=== PATIENT | male | born 1930 | race Caucasian/White ===

== ENCOUNTER 2017-01-26 15:27 | Emergency (ER) | payer MEDICARE, OTHER ==
[2017-01-26 15:57] VITALS: TEMP 97.8; BMI 27.4
[2017-01-26] MEDS ORDERED: ACETAMINOPHEN 325 MG TABLET (FP) ONE (16:03)
--- NOTE | 2017-01-26 17:26 | PDOC ---
History of Present Illness - General History Source: Patient, Half-Way Records Exam Limitations: Clinical Condition - History of Present Illness Initial Comments: 01/26/17 18:51 The patient is an 86 year old male, resident of [facility], with a significant past medical history of vertigo, anemia, HTN, HLD, and CKD, who presents to the ER s/p unwitnessed fall. 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 As per intermediate nurses, patient is confused at baseline but has been more confused for the past week. Patient fell earlier today while ambulating. As per intermediate notes, patient complained of dizziness s/p fall. On interview, patient denies any pain. Denies nausea, vomiting, diarrhea Denies fever, chills, cough <Bryanna Coker - Last Filed: 01/26/17 18:53> <Aubrie Small - Last Filed: 01/26/17 19:08> <Timothy Aguirre - Last Filed: 01/26/17 19:32> <Tena Solano - Last Filed: 01/26/17 19:40> - General Chief Complaint: Injury Stated Complaint: FALL Time Seen by Provider: 01/26/17 16:31 Past History <Bryanna Coker - Last Filed: 01/26/17 18:53> - Past Medical History Anemia: Yes Asthma: No Cancer: No Cardiac Disorders: Yes (CHF) CVA: No COPD: No CHF: No Dementia: No Diabetes: No GI Disorders: Yes (GI BLD-TRANSFUSED) Disorders: Yes (CKD) HTN: Yes Hypercholesterolemia: Yes Liver Disease: No Seizures: No Thyroid Disease: No - Surgical History Abdominal Surgery: No Appendectomy: No Cardiac Surgery: No Cholecystectomy: Yes Lung Surgery: No Neurologic Surgery: No Orthopedic Surgery: No - Psycho/Social/Smoking Cessation Hx Anxiety: No Suicidal Ideation: No Smoking History: Former smoker Have you smoked in the past 12 months: No Number of Cigarettes Smoked Daily: 15 If you are a former smoker, when did you quit?: does not remember Information on smoking cessation initiated: Yes 'Breaking Loose' booklet given: 01/26/17 Hx Alcohol Use: No Drug/Substance Use Hx: No Substance Use Type: None Hx Substance Use Treatment: No <Aubrie Small - Last Filed: 01/26/17 19:08> <AguirreTimothy - Last Filed: 01/26/17 19:32> <Tena Solano - Last Filed: 01/26/17 19:40> - Past Medical History Allergies/Adverse Reactions: Allergies Allergy/AdvReac Type Severity Reaction Status Date / Time No Known Drug Allergies Allergy Verified 01/26/17 16:14 Home Medications: Ambulatory Orders Losartan Potassium [Cozaar -] 50 mg PO DAILY 04/29/14 Cilostazol 100 mg PO BID 10/09/14 Multivitamins [Multivit ([facility] Formulary)] 1 tab PO DAILY 10/09/14 Amlodipine Besylate 10 mg PO DAILY 07/29/16 Ascorbate Calcium [Vitamin C] 500 mg PO BID 07/29/16 Docusate Sodium 100 mg PO HS 07/29/16 Escitalopram Oxalate [Lexapro -] 20 mg PO DAILY 07/29/16 Ferrous Sulfate 325 mg PO BID 07/29/16 Krill/[place]-3/Dha/Epa/Lipids [Krill Oil 300 mg Softgel] 1 each PO DAILY Oxycodone HCl 5 mg PO PRN 07/29/16 Perphenazine [Trilafon] 2 mg PO BID 07/29/16 Ranitidine [Zantac -] 150 mg PO BID 07/29/16 Acetaminophen [Tactinal] 325 mg PO DAILY 01/26/17 Olanzapine 2.5 mg PO DAILY 01/26/17 Quetiapine Fumarate [Seroquel -] 12.5 mg PO HS 01/26/17 Review of Systems - Review of Systems Able to Perform ROS?: No (Confusion) <Bryanna Coker - Last Filed: 01/26/17 18:53> *Physical Exam - Vital Signs Last Vital Signs Temp Pulse Resp BP Pulse Ox 97.8 F 70 16 150/58 100 01/26/17 15:49 01/26/17 15:49 01/26/17 15:49 01/26/17 15:49 01/26/17 15:49 - Physical Exam Comments: 01/26/17 18:51 GENERAL: Confused. Awake, alert, in no acute distress HEAD: No signs of trauma EYES: PERRLA, EOMI, sclera anicteric, conjunctiva clear ENT: Auricles normal inspection, hearing grossly normal, nares patent, oropharynx clear without exudates. Moist mucosa NECK: Normal ROM, supple, no lymphadenopathy, JVD, or masses LUNGS: Breath sounds equal, clear to auscultation bilaterally. No wheezes, and no crackles HEART: Regular rate and rhythm, normal S1 and S2, no murmurs, rubs or gallops ABDOMEN: Soft, nontender, normoactive bowel sounds. No guarding, no rebound. No masses EXTREMITIES: area of erythema on right mcgill, 1+ pitting edema to mid calf bilaterally. Normal range of motion. No clubbing or cyanosis. No cords or tenderness NEUROLOGICAL: Cranial nerves II through XII grossly intact. Normal speech, normal gait SKIN: Warm, Dry, normal turgor, no rashes or lesions noted. <Bryanna Coker - Last Filed: 01/26/17 18:53> - Vital Signs Last Vital Signs Temp Pulse Resp BP Pulse Ox 97.8 F 70 16 150/58 100 01/26/17 15:49 01/26/17 15:49 01/26/17 15:49 01/26/17 15:49 01/26/17 15:49 <Aubrie Small - Last Filed: 01/26/17 19:08> - Vital Signs Last Vital Signs Temp Pulse Resp BP Pulse Ox 97.8 F 70 16 150/58 100 01/26/17 15:49 01/26/17 15:49 01/26/17 15:49 01/26/17 15:49 01/26/17 15:49 <Timothy Aguirre - Last Filed: 01/26/17 19:32> - Vital Signs Last Vital Signs Temp Pulse Resp BP Pulse Ox 97.8 F 70 16 150/58 100 01/26/17 15:49 01/26/17 15:49 01/26/17 15:49 01/26/17 15:49 01/26/17 15:49 <Tena Solano - Last Filed: 01/26/17 19:40> ED Treatment Course - LABORATORY CBC & Chemistry Diagram: 01/26/17 17:36 01/26/17 17:20 - ADDITIONAL ORDERS Additional order review: Laboratory Results 01/26/17 17:20 Sodium 144 Potassium 5.0 Chloride 108 H Carbon Dioxide 22 Anion Gap 14 BUN 61 H D Creatinine 2.6 H Creat Clearance w eGFR 23.47 Random Glucose 104 Calcium 9.4 Total Bilirubin 0.2 AST 21 D ALT 24 Alkaline Phosphatase 123 H Creatine Kinase 439 H D Troponin I 0.03 D Total Protein 6.1 L Albumin 3.7 01/26/17 17:36 RBC 2.97 L MCV 90.3 MCHC 32.9 RDW 15.5 MPV 8.3 Neutrophils % 79.0 Lymphocytes % 8.2 Monocytes % 8.7 Eosinophils % 3.5 Basophils % 0.6 <Bryanna Coker - Last Filed: 01/26/17 18:53> - LABORATORY CBC & Chemistry Diagram: 01/26/17 17:36 01/26/17 17:20 <Aubrie Small - Last Filed: 01/26/17 19:08> - LABORATORY CBC & Chemistry Diagram: 01/26/17 17:36 01/26/17 17:20 - ADDITIONAL ORDERS Additional order review: Laboratory Results 01/26/17 01/26/17 17:20 17:20 Sodium 144 Potassium 5.0 Chloride 108 H Carbon Dioxide 22 Anion Gap 14 BUN 61 H D Creatinine 2.6 H Creat Clearance w eGFR 23.47 Random Glucose 104 Calcium 9.4 Total Bilirubin 0.2 AST 21 D ALT 24 Alkaline Phosphatase 123 H Creatine Kinase 439 H D Creatine Kinase Index 1.4 CK-MB (CK-2) 6.202 H CK-MB (CK-2) Rel Index Cancelled Troponin I 0.03 D Total Protein 6.1 L Albumin 3.7 01/26/17 17:36 RBC 2.97 L MCV 90.3 MCHC 32.9 RDW 15.5 MPV 8.3 Neutrophils % 79.0 Lymphocytes % 8.2 Monocytes % 8.7 Eosinophils % 3.5 Basophils % 0.6 <Timothy Aguirre - Last Filed: 01/26/17 19:32> - LABORATORY CBC & Chemistry Diagram: 01/26/17 17:36 01/26/17 17:20 - ADDITIONAL ORDERS Additional order review: Laboratory Results 01/26/17 01/26/17 17:20 17:20 Sodium 144 Potassium 5.0 Chloride 108 H Carbon Dioxide 22 Anion Gap 14 BUN 61 H D Creatinine 2.6 H Creat Clearance w eGFR 23.47 Random Glucose 104 Calcium 9.4 Total Bilirubin 0.2 AST 21 D ALT 24 Alkaline Phosphatase 123 H Creatine Kinase 439 H D Creatine Kinase Index 1.4 CK-MB (CK-2) 6.202 H CK-MB (CK-2) Rel Index Cancelled Troponin I 0.03 D Total Protein 6.1 L Albumin 3.7 01/26/17 17:36 RBC 2.97 L MCV 90.3 MCHC 32.9 RDW 15.5 MPV 8.3 Neutrophils % 79.0 Lymphocytes % 8.2 Monocytes % 8.7 Eosinophils % 3.5 Basophils % 0.6 <Tena Solano - Last Filed: 01/26/17 19:40> Medical Decision Making - Medical Decision Making 01/26/17 19:08 Pt presents to the ED after unwitnessed fall. Patient is following commands but is confused and is otherwise unable to give history. Uncertain if patient had syncope or mechanical fall. As per intermediate, patient is always confused , but has been more confused than usual for the last week. No external signs of trauma except for abrasion to the R leg. CT head and C spine are negative for acute trauma. Given that the fall was unwitnessed, will admit for possible syncope. <Aubrie Small - Last Filed: 01/26/17 19:08> - Medical Decision Making 01/26/17 19:33 First call placed to Dr. Montiel at 19:33. Awaiting call back. <Timothy Aguirre - Last Filed: 01/26/17 19:32> - Medical Decision Making 01/26/17 19:[address] Montiel, PMOdell of the patient at the [facility], who wants pt to return to the [facility]. He sent the patient to the ER inorder to image the Head and C spine. He feels comfortable now that the pt's imaging studies are WNL. Pt will be sent home. We discussed the Hb of 8.8, and Dr. Montiel will trend the Hb/HCT at the [facility] and look for falling H+H. Pt to return to the [facility] <Tena Solano - Last Filed: 01/26/17 19:40> *DC/Admit/Observation/Transfer - Attestations Scribe Attestion: 01/26/17 18:52 Documentation prepared by Bryanna Coker, acting as medical examiner for Aubrie Small MD. <Bryanna Coker - Last Filed: 01/26/17 18:53> <Aubrie Small - Last Filed: 01/26/17 19:08> <Timothy Aguirre - Last Filed: 01/26/17 19:32> - Discharge Dispostion Admit: No <Tena Solano - Last Filed: 01/26/17 19:40> Diagnosis at time of Disposition: Fall, Imbalance - Discharge Dispostion Disposition: DETENTION FACILITY Condition at time of disposition: Stable - Patient Instructions Printed Discharge Instructions: How to Prevent Falls
[2017-01-26 17:51] LABS: BASOPHIL 0.6 % (0-2.0); EOSINOPHIL 3.5 % (0-4.5); MCH 29.7 pg (25.7-33.7); MCHC 32.9 g/dl (32.0-35.9); MEAN CELL VOLUME 90.3 fl (80-96); MEAN PLT VOLUME 8.3 fl (7.5-11.1); PLATELET COUNT 266 K/MM3 (134-434); RDW 15.5 % (11.9-15.9); WHITE BLOOD COUNT 7.4 K/mm3 (4.0-10.0)
[2017-01-26 18:30] LABS: ALBUMIN 3.7 g/dl (3.4-5.0); ANION GAP 14 (8-16); BILIRUBIN,TOTAL 0.2 mg/dL (0.2-1.0); CALCIUM 9.4 mg/dL (8.5-10.1); CO2 22 mmol/L (21-32); CREATININE 2.6 mg/dL (0.7-1.3); GLUCOSE,RANDOM 104 mg/dL (74-106); SGOT/AST 21 U/L (15-37); SGPT/ALT 24 U/L (12-78); TOT PROT 6.1 g/dl (6.4-8.2)
[2017-01-26 18:32] LABS: ALK PHOS 123 U/L (45-117); TROPONIN I 0.03 ng/ml (0.00-0.05)
[2017-01-26 19:30] LABS: URINE APPEARANCE CLEAR; URINE BILIRUBIN NEGATIVE (NEGATIVE); URINE BLOOD NEGATIVE (NEGATIVE); URINE COLOR LTYELLOW; URINE GLUCOSE (UA) NEGATIVE (NEGATIVE); URINE KETONE NEGATIVE (NEGATIVE); URINE LEUK ESTERASE NEGATIVE (NEGATIVE); URINE NITRITE NEGATIVE (NEGATIVE); URINE UROBILINOGEN NEGATIVE E.U./dl (0.2-1.0)
[2017-01-26 19:45] LABS: URINE PROTEIN 1+ (NEGATIVE)
[2017-01-26 20:04] LABS: URINE RBC 1 /hpf (0-3); URINE WBC <1 /hpf (3-5)
[2017-01-26 20:49] VITALS: BP 146/62; PULSE 68
--- NOTE | 2017-01-27 09:56 | EKG ---
Test Reason : Blood Pressure : / mmHG Vent. Rate : 067 BPM Atrial Rate : 067 BPM P-R Int : 160 ms QRS Dur : 102 ms QT Int : 400 ms P-R-T Axes : 061 -51 029 degrees QTc Int : 422 ms POOR DATA QUALITY, INTERPRETATION MAY BE ADVERSELY AFFECTED NORMAL SINUS RHYTHM LEFT ANTERIOR FASCICULAR BLOCK INCOMPLETE RBBB ABNORMAL ECG Confirmed by MICHAEL COULTER MD ([id number]) on 01/27/2017 9:55:54 AM Referred By: Confirmed By:MICHAEL COULTER MD
== END 2017-01-26 20:49 ==
LOC: JER 15:27
DX: R26.89 Other abnormalities of gait and mobility (principal); R41.0 Disorientation, unspecified; I12.9 Hypertensive chronic kidney disease with stage 1 through stage 4 chronic kidney disease, or unspecified chronic kidney disease; N18.9 Chronic kidney disease, unspecified; E78.00 Pure hypercholesterolemia, unspecified; W19.XXXA Unspecified fall, initial encounter; Y93.89 Activity, other specified; Y92.128 Other place in nursing home as the place of occurrence of the external cause
CPT/HCPCS: 36415; 70450-TC; 71010-TC; 72125-TC; 80053; 81003; 81015; 82550; 82553; 84484; 85025; 87086; 93005; 93010; 99284-25

== ENCOUNTER 2017-02-28 05:33 | Emergency (ER) | payer OTHER ==
[2017-02-28 05:37] VITALS: TEMP 98.2; BMI 29.0
--- NOTE | 2017-02-28 05:50 | PDOC ---
History of Present Illness - General History Source: Patient, Longterm Records Exam Limitations: No Limitations - History of Present Illness Initial Comments: 02/28/17 05:57 The patient is an 86 year old male, resident of [facility], with a significant past medical history of vertigo, anemia, HTN, HLD, and CKD, who presents to the ER s/p witnessed fall. Pt was here last month for another fall. He denies any loss of consciousness but states that the facility wants him to get his head scanned anyway. Pt does not give too much of a history. The patient denies having any other injuries or symptoms. <Lani Hall - Last Filed: 02/28/17 05:57> - General History Source: Patient, Longterm Records <Luciano Tompkins - Last Filed: 02/28/17 06:56> - General Chief Complaint: Head/Neck problem Stated Complaint: FALL Time Seen by Provider: 02/28/17 05:48 Past History <Lani Hall - Last Filed: 02/28/17 05:57> - Past Medical History Anemia: Yes Asthma: No Cancer: No Cardiac Disorders: Yes (CHF) CVA: No COPD: No CHF: No Dementia: No Diabetes: No GI Disorders: Yes (GI BLD-TRANSFUSED) Disorders: Yes (CKD) HTN: Yes Hypercholesterolemia: Yes Liver Disease: No Seizures: No Thyroid Disease: No - Surgical History Abdominal Surgery: No Appendectomy: No Cardiac Surgery: No Cholecystectomy: Yes Lung Surgery: No Neurologic Surgery: No Orthopedic Surgery: No - Psycho/Social/Smoking Cessation Hx Anxiety: No Suicidal Ideation: No Smoking History: Never smoked Have you smoked in the past 12 months: No Number of Cigarettes Smoked Daily: 15 If you are a former smoker, when did you quit?: does not remember Information on smoking cessation initiated: No 'Breaking Loose' booklet given: 01/26/17 Hx Alcohol Use: No Drug/Substance Use Hx: No Substance Use Type: None Hx Substance Use Treatment: No <Luciano Tompkins - Last Filed: 02/28/17 06:56> - Past Medical History Allergies/Adverse Reactions: Allergies Allergy/AdvReac Type Severity Reaction Status Date / Time No Known Drug Allergies Allergy Verified 02/28/17 05:35 Home Medications: Ambulatory Orders Losartan Potassium [Cozaar -] 50 mg PO DAILY 04/29/14 Cilostazol 100 mg PO BID 10/09/14 Multivitamins [Multivit ([facility] Formulary)] 1 tab PO DAILY 10/09/14 Amlodipine Besylate 10 mg PO DAILY 07/29/16 Ascorbate Calcium [Vitamin C] 500 mg PO BID 07/29/16 Docusate Sodium 100 mg PO HS 07/29/16 Escitalopram Oxalate [Lexapro -] 20 mg PO DAILY 07/29/16 Ferrous Sulfate 325 mg PO BID 07/29/16 Krill/[place]-3/Dha/Epa/Lipids [Krill Oil 300 mg Softgel] 1 each PO DAILY Oxycodone HCl 5 mg PO PRN 07/29/16 Perphenazine [Trilafon] 2 mg PO BID 07/29/16 Ranitidine [Zantac -] 150 mg PO BID 07/29/16 Acetaminophen [Tactinal] 325 mg PO DAILY 01/26/17 Olanzapine 2.5 mg PO DAILY 01/26/17 Quetiapine Fumarate [Seroquel -] 12.5 mg PO HS 01/26/17 Review of Systems - Review of Systems Able to Perform ROS?: Yes Comments:: 02/28/17 05:57 CONSTITUTIONAL: Absent: fever, no chills, no fatigue EYES: Absent: visual changes ENT: Absent: ear pain, no sore throat CARDIOVASCULAR: Absent: chest pain, no palpitations RESPIRATORY: Absent: cough, no SOB GI: Absent: abdominal pain, no nausea, no vomiting, no constipation, no diarrhea GENITOURINARY: Absent: dysuria, no frequency, no hematuria MUSKULOSKELETAL: Absent: back pain, no arthralgia, no myalgia SKIN: Present: abrasion to restoration Absent: rash NEURO: Absent: headache <Lani Hall - Last Filed: 02/28/17 05:57> *Physical Exam - Vital Signs Last Vital Signs Temp Pulse Resp BP Pulse Ox 98.2 F 72 14 151/62 96 02/28/17 05:35 02/28/17 05:35 02/28/17 05:35 02/28/17 05:35 02/28/17 05:35 - Physical Exam Comments: 02/28/17 05:58 GENERAL: Well developed, well nourished. Awake and alert. No acute distress. HEENT: Normocephalic. PERRLA, EOMI. No conjunctival pallor. Sclera are non-icteric. Moist mucous membranes. Oropharynx is clear. +No raccoon or rushing signs. Abrasion to frontal temporal region NECK: Supple. Full ROM. No JVD. Carotid pulses 2+ and symmetric, without bruits. No thyromegaly. No lymphadenopathy. CARDIOVASCULAR: Regular rate and rhythm. No murmurs, rubs, or gallops. Distal pulses are 2+ and symmetric. PULMONARY: No evidence of respiratory distress. Lungs clear to auscultation bilaterally. No wheezing, rales or rhonchi. ABDOMINAL: Soft. Non-tender. Non-distended. No rebound or guarding. No organomegaly. Normoactive bowel sounds. MUSCULOSKELETAL Normal range of motion at all joints. No bony deformities or tenderness. No CVA tenderness. EXTREMITIES: No cyanosis. No clubbing. No edema. No calf tenderness. SKIN: Warm and dry. Normal capillary refill. No rashes. No jaundice. NEUROLOGICAL: Alert, awake, appropriate. PSYCHIATRIC: Cooperative. Good eye contact. Appropriate mood and affect. <Lani Hall - Last Filed: 02/28/17 05:57> - Vital Signs Last Vital Signs Temp Pulse Resp BP Pulse Ox 98.2 F 72 14 151/62 96 02/28/17 05:35 02/28/17 05:35 02/28/17 05:35 02/28/17 05:35 02/28/17 05:35 <Luciano Tompkins - Last Filed: 02/28/17 06:56> Medical Decision Making - Medical Decision Making 02/28/17 06:56 Dr. Tompkins: The scribe's documentation has been prepared under my direction and personally reviewed by me in its entirery. I confirm that the note above accurately reflects all work, treatment, procedures, and medical decision making performed by me. <Luciano Tompkins - Last Filed: 02/28/17 06:56> *DC/Admit/Observation/Transfer - Attestations Scribe Attestion: 02/28/17 06:00 Documentation prepared by Lani Hall, acting as bilingual medical receptionist for Luciano Tompkins MD. <Lani Hall - Last Filed: 02/28/17 05:57> - Discharge Dispostion Admit: No <Luciano Tompkins - Last Filed: 02/28/17 06:56> Diagnosis at time of Disposition: Fall Qualifiers: Encounter type: subsequent encounter Qualified Code(s): W19.XXXD - Unspecified fall, subsequent encounter - Discharge Dispostion Disposition: HOME Condition at time of disposition: Stable - Referrals Referrals: Cesario Montiel MD [Primary Care Provider] - - Patient Instructions Printed Discharge Instructions: How to Prevent Falls
[2017-02-28 08:06] VITALS: BP 153/73; PULSE 64
== END 2017-02-28 08:50 | disposition home or self-care (01) ==
LOC: JER 05:33
DX: Z03.89 Encounter for observation for other suspected diseases and conditions ruled out (principal); W18.39XA Other fall on same level, initial encounter; Z91.81 History of falling; Y93.89 Activity, other specified; Y92.129 Unspecified place in nursing home as the place of occurrence of the external cause; I12.9 Hypertensive chronic kidney disease with stage 1 through stage 4 chronic kidney disease, or unspecified chronic kidney disease; N18.9 Chronic kidney disease, unspecified; E78.5 Hyperlipidemia, unspecified; E78.00 Pure hypercholesterolemia, unspecified
CPT/HCPCS: 70450-TC; 72125-TC; 99283-25

== ENCOUNTER 2017-03-28 18:27 | Inpatient (IN) | payer OTHER ==
--- NOTE | 2017-03-28 20:13 | PDOC ---
History of Present Illness - General Chief Complaint: Revisit, Lab Variance Stated Complaint: ABNORMAL LABS Time Seen by Provider: 03/28/17 19:53 - History of Present Illness Initial Comments: 03/28/17 20:12 CHIEF COMPLAINT: lab variance HISTORY OF PRESENT ILLNESS: 86 yo M with significant PMH of history of transfused GI bleed, anemia, hypertension, hyperlipidemia, CKD sent to ED by [facility] for abnormal labs. Per custodial note patient had an H&H of 6.2/22 and was more confused than he is at baseline. Patient denies any pain on exam and states that he feels ok. No recent travel or sick contacts. PAST MEDICAL HISTORY: as per HPI FAMILY HISTORY: Denies SOCIAL HISTORY: Lives at [facility]. Denies tobacco, alcohol, illicit drug use. SURGICAL HISTORY: Denies ALLERGIES: No known drug allergies REVIEW OF SYSTEMS General/Constitutional: Denies fever or chills. Denies weakness, weight change. HEENT: Denies change in vision. Denies ear pain or discharge. Denies sore throat. Cardiovascular: Denies chest pain or shortness of breath. Respiratory: Denies cough, wheezing, or hemoptysis. Gastrointestinal: Denies nausea, vomiting, diarrhea or constipation. Denies rectal bleeding. Genitourinary: Denies dysuria, frequency, or change in urination. Musculoskeletal: Denies joint or muscle swelling or pain. Denies neck or back pain. Skin and breasts: Denies rash or easy bruising. Neurologic: Denies headache, vertigo, loss of consciousness, or loss of sensation. PHYSICAL EXAM General Appearance: Well-appearing, appropriately dressed. No apparent distress. HEENT: EOMI, PERRLA, normal ENT inspection, normal voice, TMs normal, pharynx normal. No conjunctival pallor. No photophobia, scleral icterus. Neck: Supple. Trachea midline. No tenderness, rigidity, carotid bruit, stridor , lymphadenopathy, or thyromegaly. Respiratory/Chest: Lungs CTAB. No shortness of breath, chest tenderness, respiratory distress, accessory muscle use. No crackles, rales, rhonchi, stridor , wheezing, dullness Cardiovascular: RRR. S1, S2. No JVD, murmur, bradycardia, tachycardia. Vascular Pulses: Dorsalis-Pedis (R): 2+, Dorsalis-Pedis (L): 2+ Gastrointestinal/Abdominal: Normal bowel sounds. Abdomen soft, non-distended. No tenderness or rebound tenderness. No organomegaly, pulsatile mass, guarding , hernia, hepatomegaly, splenomegaly. Lymphatic: No adenopathy, tenderness. Musculoskeletal/Extremities: Normal inspection. FROM of all extremities, normal capillary refill. Pelvis Stable. No CVA tenderness. No tenderness to extremities, pedal edema, swelling, erythema or deformity. Integumentary: Appropriate color, dry, warm. No cyanosis, erythema, jaundice or rash Neurologic: orthodontic technician II-XII intact. Fully oriented, alert. Appropriate mood/affect. Motor strength 5/5. No appreciable EOM palsy, facial droop or sensory deficit. Past History - Past Medical History Allergies/Adverse Reactions: Allergies Allergy/AdvReac Type Severity Reaction Status Date / Time No Known Drug Allergies Allergy Verified 03/28/17 19:26 Home Medications: Ambulatory Orders Acetaminophen [Tylenol] 650 mg PO DAILY 03/28/17 Amlodipine Besylate [Norvasc -] 10 mg PO DAILY 03/28/17 Ascorbate Calcium [Vitamin C] 500 mg PO BID 03/28/17 Cilostazol 100 mg PO BID 03/28/17 Docusate Sodium [Colace -] 100 mg PO DAILY 03/28/17 Escitalopram Oxalate [Lexapro -] 20 mg PO DAILY 03/28/17 Ferrous Sulfate 325 mg PO BID 03/28/17 Furosemide [Lasix] 20 mg PO DAILY 03/28/17 Krill/[place]-3/Dha/Epa/Lipids [Krill Oil 300 mg Softgel] 1 each PO DAILY Metoprolol Succinate [Toprol Xl -] 25 mg PO DAILY 03/28/17 Multivitamin [One Daily] 1 each PO DAILY 03/28/17 Olanzapine 15 mg PO DAILY 03/28/17 Oxycodone HCl 5 mg PO PRN PRN 03/28/17 Perphenazine [Trilafon] 0.5 mg PO DAILY 03/28/17 Petrolatum,White/Lanolin [Vitamin A & D Ointment] 454 gm TP BID 03/28/17 Ranitidine [Zantac -] 150 mg PO BID 03/28/17 Anemia: Yes Asthma: No Cancer: No Cardiac Disorders: Yes (CHF) CVA: No COPD: No CHF: No Dementia: No Diabetes: No GI Disorders: Yes (GI BLD-TRANSFUSED) Disorders: Yes (CKD) HTN: Yes Hypercholesterolemia: Yes Liver Disease: No Seizures: No Thyroid Disease: No - Surgical History Abdominal Surgery: No Appendectomy: No Cardiac Surgery: No Cholecystectomy: Yes Lung Surgery: No Neurologic Surgery: No Orthopedic Surgery: No - Psycho/Social/Smoking Cessation Hx Anxiety: No Suicidal Ideation: No Smoking History: Unknown if ever smoked Have you smoked in the past 12 months: No Number of Cigarettes Smoked Daily: 15 If you are a former smoker, when did you quit?: does not remember Information on smoking cessation initiated: No 'Breaking Loose' booklet given: 01/26/17 Hx Alcohol Use: No Drug/Substance Use Hx: No Substance Use Type: None Hx Substance Use Treatment: No *Physical Exam - Vital Signs Last Vital Signs Temp Pulse Resp BP Pulse Ox 97.5 F L 58 L 18 135/60 98 03/28/17 18:27 03/28/17 18:27 03/28/17 18:27 03/28/17 18:27 03/28/17 18:27 ED Treatment Course - LABORATORY CBC & Chemistry Diagram: 03/31/17 07:46 03/31/17 07:46 - RADIOLOGY Radiology Studies Ordered: Category Date Time Status CHEST X-RAY PORTABLE* [RAD] Stat Radiology 03/28/17 19:55 Ordered Medical Decision Making - Medical Decision Making 04/01/17 04:31 86 yo M with significant PMH of history of transfused GI bleed, anemia, hypertension, hyperlipidemia, CKD sent to ED by [facility] for abnormal labs. -CBC, CMP, PT/INR, T&S, card profile -UA, UCx -Guaiac -EKG, CXR [place] negative Labs: Hg 6.6 Creatinine 2.9, elevated from prior of 2.6 -2 units PRBC Discussed case with patient's PCP Dinesh, patient admitted to med/surg. *DC/Admit/Observation/Transfer Diagnosis at time of Disposition: Anemia Qualifiers: Anemia type: iron deficiency Iron deficiency anemia type: unspecified iron deficiency Qualified Code(s): D50.9 - Iron deficiency anemia, unspecified - Discharge Dispostion Admit: Yes
[2017-03-28 20:25] LABS: BASOPHIL 0.7 % (0-2.0); EOSINOPHIL 7.9 % (0-4.5); MCH 32.2 pg (25.7-33.7); MCHC 32.9 g/dl (32.0-35.9); MEAN CELL VOLUME 97.8 fl (80-96); MEAN PLT VOLUME 8.5 fl (7.5-11.1); NEUTROPHILS 69.1 % (42.8-82.8); PLATELET COUNT 253 K/MM3 (134-434); RDW 18.3 % (11.9-15.9); WHITE BLOOD COUNT 4.5 K/mm3 (4.0-10.0)
[2017-03-28 20:36] LABS: INR 1.04 (0.82-1.09); PROTHROMBIN TIME (PATIENT) 11.5 SEC (9.98-11.88)
[2017-03-28 20:49] LABS: ALBUMIN 3.3 g/dl (3.4-5.0); ANION GAP 8 (8-16); CALCIUM 8.9 mg/dL (8.5-10.1); CO2 23 mmol/L (21-32); GLUCOSE,RANDOM 150 mg/dL (74-106); SGPT/ALT 51 U/L (12-78)
--- NOTE | 2017-03-28 20:51 | PDOC ---
*Physical Exam - Vital Signs Last Vital Signs Temp Pulse Resp BP Pulse Ox 97.5 F L 58 L 18 135/60 98 03/28/17 18:27 03/28/17 18:27 03/28/17 18:27 03/28/17 18:27 03/28/17 18:27 ED Treatment Course - LABORATORY CBC & Chemistry Diagram: 03/29/17 07:30 03/29/17 07:30 - ADDITIONAL ORDERS Additional order review: Laboratory Results 03/28/17 20:10 Crossmatch See Detail 03/28/17 20:10 RBC 2.05 L D MCV 97.8 H MCHC 32.9 RDW 18.3 H D MPV 8.5 Neutrophils % 69.1 Lymphocytes % 10.6 D Monocytes % 11.7 H Eosinophils % 7.9 H D Basophils % 0.7 Medical Decision Making - Medical Decision Making 03/28/17 20:51 agree with care from TAYLOR Palacios *DC/Admit/Observation/Transfer Diagnosis at time of Disposition: Anemia
[2017-03-28 20:52] LABS: ALK PHOS 149 U/L (45-117); BILIRUBIN,TOTAL 0.2 mg/dL (0.2-1.0); CREATININE 2.9 mg/dL (0.7-1.3); SGOT/AST 27 U/L (15-37); TOT PROT 5.8 g/dl (6.4-8.2)
[2017-03-28] MEDS: RANITIDINE HCL 150 MG TABLET (FP) PO SCH (22:00)
[2017-03-28 22:01] LABS: TROPONIN I 0.02 ng/ml (0.00-0.05)
[2017-03-28 22:17] LABS: PH,URINE 5.5 (5.0-8.0); URINE APPEARANCE CLEAR; URINE BILIRUBIN NEGATIVE (NEGATIVE); URINE BLOOD NEGATIVE (NEGATIVE); URINE COLOR LT. YELLOW; URINE GLUCOSE (UA) NEGATIVE (NEGATIVE); URINE KETONE NEGATIVE (NEGATIVE); URINE LEUK ESTERASE NEGATIVE (NEGATIVE); URINE NITRITE NEGATIVE (NEGATIVE); URINE UROBILINOGEN 0.2 mg/dL (0.2-1.0)
[2017-03-28] MEDS: CILOSTAZOL 100 MG TABLET PO SCH (22:30)
[2017-03-28 22:40] LABS: URINE HYALINE CAST 1 /lpf; URINE PROTEIN 1+ (NEGATIVE); URINE RBC NONE SEEN /hpf (0-3); URINE WBC NONE SEEN /hpf (3-5)
[2017-03-29 01:19] LABS: URINE CREATININE 24.5 mg/dL (20-370)
[2017-03-29 01:45] VITALS: BMI 27.6
[2017-03-29 02:47] LABS: FERRITIN 32.854 ng/ml (16.4-293.9); THYROID STIMULATING HORMONE 3.77 uIU/ml (0.358-3.74)
[2017-03-29 08:51] LABS: BASOPHIL 0.4 % (0-2.0); EOSINOPHIL 7.2 % (0-4.5); MCH 32.6 pg (25.7-33.7); MCHC 34.1 g/dl (32.0-35.9); MEAN CELL VOLUME 95.7 fl (80-96); MEAN PLT VOLUME 8.7 fl (7.5-11.1); NEUTROPHILS 68.3 % (42.8-82.8); PLATELET COUNT 268 K/MM3 (134-434); RDW 17.5 % (11.9-15.9); WHITE BLOOD COUNT 4.9 K/mm3 (4.0-10.0)
[2017-03-29 09:08] LABS: ALBUMIN 3.2 g/dl (3.4-5.0); ALK PHOS 157 U/L (45-117); ANION GAP 10 (8-16); BILIRUBIN,TOTAL 0.9 mg/dL (0.2-1.0); CALCIUM 8.7 mg/dL (8.5-10.1); CO2 21 mmol/L (21-32); CREATININE 2.7 mg/dL (0.7-1.3); GLUCOSE,RANDOM 86 mg/dL (74-106); SGOT/AST 22 U/L (15-37); SGPT/ALT 47 U/L (12-78); TOT PROT 5.7 g/dl (6.4-8.2)
[2017-03-29 11:33] LABS: URINE CREATININE 43.4 mg/dL (20-370)
[2017-03-29] MEDS ORDERED: ESCITALOPRAM OXALATE 10 MG TABLET (FP) ONE (11:51)
[2017-03-29] MEDS ORDERED: PT OWN MED DRAWER 7, Y5N ONE (11:52)
[2017-03-29] MEDS: ESCITALOPRAM OXALATE 20 MG TABLET (FP) PO SCH (12:51)
[2017-03-29] MEDS: METOPROLOL SUCCINATE 25 MG TAB.SR.24H (FP) PO SCH (12:52)
[2017-03-29] MEDS: amLODIPine BESYLATE 10 MG TABLET (FP) PO SCH (12:53)
[2017-03-29] MEDS: OLANZapine 2.5 MG TABLET PO SCH (12:54)
[2017-03-29] MEDS: RANITIDINE HCL 150 MG TABLET (FP) PO SCH ×2 (12:54→21:30)
[2017-03-29] MEDS: CILOSTAZOL 100 MG TABLET PO SCH ×2 (12:55→21:30)
--- NOTE | 2017-03-29 13:04 | HP ---
Admitting History and Physical - Primary Care Physician PCP: Cesario Montiel - Admission Chief Complaint: I don't know History of Present Illness: Mr Reynoso is an 86 year old gentleman who was sent in for abnormal labs. Patient has dementia and I am unable to obtain a HPI. He says he does not remember what happened yesterday. He says he feels adequate. He denies pain, fevers, lightheadedness, chest pain, shortness of breath, coughing, abdominal pain, nausea, vomiting, diarrhea, constipation, difficulty or pain on urination. He says he does not know if his legs are swollen. RN says she placed a harris and received 1500mL of urine. 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 duo bx neg) - Smoking History Smoking history: Unknown if ever smoked Have you smoked in the past 12 months: No Aproximately how many cigarettes per day: 15 If you are a former smoker, when did you quit?: does not remember - Alcohol/Substance Use Hx Alcohol Use: No - Social History Usual Living Arrangement: Yes: Senior Care ADL: Support Services History of Recent Travel: No Home Medications - Allergies Allergies/Adverse Reactions: Allergies Allergy/AdvReac Type Severity Reaction Status Date / Time No Known Drug Allergies Allergy Verified 03/28/17 19:26 - Home Medications Home Medications: Ambulatory Orders Acetaminophen [Tylenol] 650 mg PO DAILY 03/28/17 Amlodipine Besylate [Norvasc -] 10 mg PO DAILY 03/28/17 Ascorbate Calcium [Vitamin C] 500 mg PO BID 03/28/17 Cilostazol 100 mg PO BID 03/28/17 Docusate Sodium [Colace -] 100 mg PO DAILY 03/28/17 Escitalopram Oxalate [Lexapro -] 20 mg PO DAILY 03/28/17 Ferrous Sulfate 325 mg PO BID 03/28/17 Furosemide [Lasix] 20 mg PO DAILY 03/28/17 Krill/[place]-3/Dha/Epa/Lipids [Krill Oil 300 mg Softgel] 1 each PO DAILY Metoprolol Succinate [Toprol Xl -] 25 mg PO DAILY 03/28/17 Multivitamin [One Daily] 1 each PO DAILY 03/28/17 Olanzapine 15 mg PO DAILY 03/28/17 Oxycodone HCl 5 mg PO PRN PRN 03/28/17 Perphenazine [Trilafon] 0.5 mg PO DAILY 03/28/17 Petrolatum,White/Lanolin [Vitamin A & D Ointment] 454 gm TP BID 03/28/17 Ranitidine [Zantac -] 150 mg PO BID 03/28/17 Family Disease History - Family Disease History Family History: Unable to Obtain (dementia) Review of Systems Findings/Remarks: Full review of systems obtained, as per HPI and otherwise negative. Physical Examination Vital Signs: Vital Signs Temperature 36.3 C L 03/29/17 06:25 Pulse Rate 60 03/29/17 08:00 Respiratory Rate 18 03/29/17 08:00 Blood Pressure 130/80 03/29/17 08:00 O2 Sat by Pulse Oximetry (%) 99 03/29/17 09:00 Constitutional: Yes: Well Nourished, No Distress, Calm Eyes: Yes: Conjunctiva Clear, PERRL Cardiovascular: Yes: Regular Rate and Rhythm. No: Gallop, Murmur, Rub Respiratory: Yes: Regular, CTA Bilaterally. No: Rales, Rhonchi, Wheezes Gastrointestinal: Yes: Normal Bowel Sounds, Soft. No: Distention, Tenderness Extremities: Yes: WNL Edema: Yes Edema: LLE: Trace, RLE: Trace Labs: CBC, BMP 03/29/17 07:30 03/29/17 07:30 Imaging - Results Chest X-ray: Report Reviewed, Image Reviewed Ultrasound: Report Reviewed Problem List - Problems (1) Anemia Assessment/Plan: -unclear source -stool guaiac negative -anemia labs pending -hematology consult -s/p transfusion, monitor Code(s): D64.9 - ANEMIA, UNSPECIFIED (2) Acute on chronic renal failure Assessment/Plan: -possibly secondary to retention -harris placed -continue IVF -nephrology consulted Code(s): N17.9 - ACUTE KIDNEY FAILURE, UNSPECIFIED N18.9 - CHRONIC KIDNEY DISEASE, UNSPECIFIED (3) HTN (hypertension) Assessment/Plan: -continue toprol xl and norvasc -controlled Code(s): I10 - ESSENTIAL (PRIMARY) HYPERTENSION (4) Urinary retention Assessment/Plan: -harris placed -urology consult Code(s): R33.9 - RETENTION OF URINE, UNSPECIFIED
--- NOTE | 2017-03-29 14:07 | CON.NEP ---
Consult Consult Specialty:: Nephrology (Hermes/Daren) Referred by:: Dr. Montiel Reason for Consultation:: SUZI on CKD, vs progressive CKD - History of Present Illness Chief Complaint: Abnormal labs History of Present Illness: This is a 86 year old Gentleman with PMhx of CKD (baseline 2.1-2.6?), CHF, Anemia, GIB, Hyperlipidemia who was sent to the ED from [place] for acute on chronic anemia and found to have BUN/Cr of 61/2.9. Pt when examined was lethargic and not able to provide much history. No DIPTI/ARB, NSAIDs listed on EMR. Pt denies any acute complaints. No N/V/D. Pt found to have bladder outlet obstruction on US and harris inserted. s/p 2 PRBC transfusion for anemia. 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 duo bx neg) - Alcohol/Substance Use Hx Alcohol Use: No - Smoking History Smoking history: Unknown if ever smoked Have you smoked in the past 12 months: No Aproximately how many cigarettes per day: 15 If you are a former smoker, when did you quit?: does not remember - Social History Usual Living Arrangement: Alone ADL: Support Services History of Recent Travel: No Home Medications - Allergies Allergies/Adverse Reactions: Allergies Allergy/AdvReac Type Severity Reaction Status Date / Time No Known Drug Allergies Allergy Verified 03/28/17 19:26 - Home Medications Home Medications: Ambulatory Orders Acetaminophen [Tylenol] 650 mg PO DAILY 03/28/17 Amlodipine Besylate [Norvasc -] 10 mg PO DAILY 03/28/17 Ascorbate Calcium [Vitamin C] 500 mg PO BID 03/28/17 Cilostazol 100 mg PO BID 03/28/17 Docusate Sodium [Colace -] 100 mg PO DAILY 03/28/17 Escitalopram Oxalate [Lexapro -] 20 mg PO DAILY 03/28/17 Ferrous Sulfate 325 mg PO BID 03/28/17 Furosemide [Lasix] 20 mg PO DAILY 03/28/17 Krill/[place]-3/Dha/Epa/Lipids [Krill Oil 300 mg Softgel] 1 each PO DAILY Metoprolol Succinate [Toprol Xl -] 25 mg PO DAILY 03/28/17 Multivitamin [One Daily] 1 each PO DAILY 03/28/17 Olanzapine 15 mg PO DAILY 03/28/17 Oxycodone HCl 5 mg PO PRN PRN 03/28/17 Perphenazine [Trilafon] 0.5 mg PO DAILY 03/28/17 Petrolatum,White/Lanolin [Vitamin A & D Ointment] 454 gm TP BID 03/28/17 Ranitidine [Zantac -] 150 mg PO BID 03/28/17 Family Disease History - Family Disease History Family History: Unremarkable Review of Systems - Review of Systems Constitutional: reports: No Symptoms Eyes: reports: No Symptoms HENT: reports: No Symptoms Neck: reports: No Symptoms Cardiovascular: reports: No Symptoms Respiratory: reports: No Symptoms Gastrointestinal: reports: No Symptoms Musculoskeletal: reports: No Symptoms Integumentary: reports: No Symptoms Nephrology Consult - Height Height: 5 ft 6 in - Weight Weight: 171 lb 3 oz - BMI Body Mass Index (BMI): 27.6 - Lab Results CBC,BMP: CBC, BMP 03/29/17 07:30 03/29/17 07:30 Anion Gap: Anion Gap Anion Gap 10 (8-16) 03/29/17 07:30 - Imaging Chest X-ray: Report Reviewed - Physical Examination Vital Signs: Vital Signs Temperature 97.3 F L 03/29/17 06:25 Pulse Rate 60 03/29/17 08:00 Respiratory Rate 18 03/29/17 08:00 Blood Pressure 130/80 03/29/17 08:00 O2 Sat by Pulse Oximetry (%) 99 03/29/17 09:00 Constitutional: Yes: No Distress Eyes: Yes: Conjunctiva Clear HENT: Yes: Atraumatic Neck: Yes: Supple Cardiovascular: Yes: Regular Rate and Rhythm, S1, S2. No: JVD, Gallop, Murmur Respiratory: Yes: Regular, CTA Bilaterally Gastrointestinal: Yes: Normal Bowel Sounds, Soft Renal/: Yes: Harris Present. No: Bladder Distention Extremities: No: Cold, Cool, Cyanosis Edema: No Neurological: Yes: Alert, Lethargy Problem List - Problems (1) Anemia Code(s): D64.9 - ANEMIA, UNSPECIFIED (2) HTN (hypertension) Code(s): I10 - ESSENTIAL (PRIMARY) HYPERTENSION (3) Urinary retention Code(s): R33.9 - RETENTION OF URINE, UNSPECIFIED (4) Acute on chronic renal failure Code(s): N17.9 - ACUTE KIDNEY FAILURE, UNSPECIFIED N18.9 - CHRONIC KIDNEY DISEASE, UNSPECIFIED Assessment/Plan 86 year old Gentleman with PMhx of CKD (baseline 2.1-2.6?), CHF, Anemia, GIB, Hyperlipidemia who was sent to the ED from [place] for acute on chronic anemia and found to have BUN/Cr of 61/2.9. #Acute on Chronic renal failure vs. 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
[2017-03-29] MEDS ORDERED: SODIUM CHLORIDE 0.45% 1,000 ML IV SCH (14:15)
--- NOTE | 2017-03-29 14:54 | EKG ---
Test Reason : Blood Pressure : / mmHG Vent. Rate : 057 BPM Atrial Rate : 057 BPM P-R Int : 162 ms QRS Dur : 102 ms QT Int : 420 ms P-R-T Axes : 031 -43 040 degrees QTc Int : 408 ms SINUS BRADYCARDIA WITH SINUS ARRHYTHMIA LEFT AXIS DEVIATION ABNORMAL ECG WHEN COMPARED WITH ECG OF 26-JAN-2017 17:59, NO SIGNIFICANT CHANGE WAS FOUND Confirmed by NELLIE DAVALOS MD ([id number]) on 03/29/2017 2:54:18 PM Referred By: Confirmed By:NELLIE DAVALOS MD
--- NOTE | 2017-03-29 16:26 | CON.GU ---
Consult Consult Specialty:: Referred by:: medicine Reason for Consultation:: urinary retention - History of Present Illness Chief Complaint: urinary retention History of Present Illness: 86 year old male NHR who presents with anemia. he was incontinence and a bladder sonogram revealed a greater than 1000ml residual. A harris cath was placed and 1500ml clear urine was drained. Patient has dementia and at several times during the interview he fell asleep. 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 duo bx neg) - Alcohol/Substance Use Hx Alcohol Use: No - Smoking History Smoking history: Unknown if ever smoked Have you smoked in the past 12 months: No Aproximately how many cigarettes per day: 15 If you are a former smoker, when did you quit?: does not remember - Social History Usual Living Arrangement: Alone ADL: Support Services History of Recent Travel: No Home Medications - Allergies Allergies/Adverse Reactions: Allergies Allergy/AdvReac Type Severity Reaction Status Date / Time No Known Drug Allergies Allergy Verified 03/28/17 19:26 - Home Medications Home Medications: Ambulatory Orders Acetaminophen [Tylenol] 650 mg PO DAILY 03/28/17 Amlodipine Besylate [Norvasc -] 10 mg PO DAILY 03/28/17 Ascorbate Calcium [Vitamin C] 500 mg PO BID 03/28/17 Cilostazol 100 mg PO BID 03/28/17 Docusate Sodium [Colace -] 100 mg PO DAILY 03/28/17 Escitalopram Oxalate [Lexapro -] 20 mg PO DAILY 03/28/17 Ferrous Sulfate 325 mg PO BID 03/28/17 Furosemide [Lasix] 20 mg PO DAILY 03/28/17 Krill/[place]-3/Dha/Epa/Lipids [Krill Oil 300 mg Softgel] 1 each PO DAILY Metoprolol Succinate [Toprol Xl -] 25 mg PO DAILY 03/28/17 Multivitamin [One Daily] 1 each PO DAILY 03/28/17 Olanzapine 15 mg PO DAILY 03/28/17 Oxycodone HCl 5 mg PO PRN PRN 03/28/17 Perphenazine [Trilafon] 0.5 mg PO DAILY 03/28/17 Petrolatum,White/Lanolin [Vitamin A & D Ointment] 454 gm TP BID 03/28/17 Ranitidine [Zantac -] 150 mg PO BID 03/28/17 Review of Systems - Review of Systems Genitourinary: reports: Frequency, Incontinence, Urgency Physical Exam- Vital Signs: Vital Signs Temperature 97.3 F L 03/29/17 14:00 Pulse Rate 67 03/29/17 14:00 Respiratory Rate 17 03/29/17 14:00 Blood Pressure 146/74 03/29/17 14:00 O2 Sat by Pulse Oximetry (%) 99 03/29/17 09:00 Constitutional: Yes: No Distress, Calm Renal/: Yes: Harris Present. No: Bladder Distention, CVA Tenderness - Left, CVA Tenderness - Right, Hematuria, Incontinence Labs: CBC, BMP 03/29/17 07:30 03/29/17 07:30 Problem List - Problems (1) Urinary retention Assessment/Plan: start Flomax. He is unlikely to void in the short term and might need a harris cath or possibly a suprapubic catheter placed if he has senior care retention. Code(s): R33.9 - RETENTION OF URINE, UNSPECIFIED
--- NOTE | 2017-03-29 16:31 | CONSULT ---
Consult Consult Specialty:: Hematology/Oncology Reason for Consultation:: Anemia - History of Present Illness History of Present Illness: 86 year old half-way resident with PMhx of CKD CHF, Anemia, GIB, Hyperlipidemia who was sent to the ED from [place] for acute on chronic anemia. Pt found to have bladder outlet obstruction on US and harris inserted. s/p 2 PRBC transfusion for anemia. Was seen by Renal/. We were consulted for anemia. history obtained from medical record. 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 duo bx neg) - Alcohol/Substance Use Hx Alcohol Use: No - Smoking History Smoking history: Unknown if ever smoked Have you smoked in the past 12 months: No Aproximately how many cigarettes per day: 15 If you are a former smoker, when did you quit?: does not remember - Social History Usual Living Arrangement: Alone ADL: Support Services History of Recent Travel: No Home Medications - Allergies Allergies/Adverse Reactions: Allergies Allergy/AdvReac Type Severity Reaction Status Date / Time No Known Drug Allergies Allergy Verified 03/28/17 19:26 - Home Medications Home Medications: Ambulatory Orders Acetaminophen [Tylenol] 650 mg PO DAILY 03/28/17 Amlodipine Besylate [Norvasc -] 10 mg PO DAILY 03/28/17 Ascorbate Calcium [Vitamin C] 500 mg PO BID 03/28/17 Cilostazol 100 mg PO BID 03/28/17 Docusate Sodium [Colace -] 100 mg PO DAILY 03/28/17 Escitalopram Oxalate [Lexapro -] 20 mg PO DAILY 03/28/17 Ferrous Sulfate 325 mg PO BID 03/28/17 Furosemide [Lasix] 20 mg PO DAILY 03/28/17 Krill/[place]-3/Dha/Epa/Lipids [Krill Oil 300 mg Softgel] 1 each PO DAILY Metoprolol Succinate [Toprol Xl -] 25 mg PO DAILY 03/28/17 Multivitamin [One Daily] 1 each PO DAILY 03/28/17 Olanzapine 15 mg PO DAILY 03/28/17 Oxycodone HCl 5 mg PO PRN PRN 03/28/17 Perphenazine [Trilafon] 0.5 mg PO DAILY 03/28/17 Petrolatum,White/Lanolin [Vitamin A & D Ointment] 454 gm TP BID 03/28/17 Ranitidine [Zantac -] 150 mg PO BID 03/28/17 Physical Exam Vital Signs: Vital Signs Temperature 97.3 F L 03/29/17 14:00 Pulse Rate 67 03/29/17 14:00 Respiratory Rate 17 03/29/17 14:00 Blood Pressure 146/74 03/29/17 14:00 O2 Sat by Pulse Oximetry (%) 99 03/29/17 09:00 Constitutional: Yes: Calm HENT: Yes: Atraumatic, Normocephalic Cardiovascular: Yes: Regular Rate and Rhythm, Murmur Respiratory: Yes: Regular Gastrointestinal: Yes: Normal Bowel Sounds, Soft Edema: No (rle in dressing) Neurological: Yes: Other (sleepy) Labs: CBC, BMP 03/29/17 07:30 03/29/17 07:30 Problem List - Problems (1) Anemia Code(s): D64.9 - ANEMIA, UNSPECIFIED (2) Urinary retention Code(s): R33.9 - RETENTION OF URINE, UNSPECIFIED (3) Acute on chronic renal failure Code(s): N17.9 - ACUTE KIDNEY FAILURE, UNSPECIFIED N18.9 - CHRONIC KIDNEY DISEASE, UNSPECIFIED Assessment/Plan Anemia SUZI on CKD HTN h/o CHF -Reviewed chart in detail, pt underwent GI w/u in 2013 with EGD/Colonoscopy and found to have hemorrhoids, no avm, and planned to do capsule endoscopy as a out pt. -Presently, stool occult blood negative. - will follow-up on the screening labs, ACD/ACI in the setting of CKD is a possibility in addition to iron def (ferritin of 32), will await other iron studies prior to giving procrit/IV iron. -s/p 2 U PRBC with appropriate response. -f/u SPEP. will follow
--- NOTE | 2017-03-30 04:15 | HOSP ---
Subjective - Review of Symptoms Events since last encounter: Nsg notified specifications writer that pt had become very agitated, pulled out his IV, and was kicking/punching nurses. Upon exam, pt still agitated and poses a risk of injury to self. Vest restraint and Ativan 1mg IM once ordered for pt safety. Physical Examination Vital Signs: Vital Signs Temperature 98.7 F 03/30/17 02:00 Pulse Rate 66 03/30/17 02:00 Respiratory Rate 18 03/30/17 02:00 Blood Pressure 138/70 03/30/17 02:00 O2 Sat by Pulse Oximetry (%) 99 03/29/17 21:00 Labs: CBC, BMP 03/29/17 07:30 03/29/17 07:30 Visit type - Emergency Visit Emergency Visit: Yes ED Registration Date: 03/28/17 Care time: The patient presented to the Emergency Department on the above date and was hospitalized for further evaluation of their emergent condition. - New Patient This patient is new to me today: Yes Date on this admission: 03/30/17 - Critical Care Critical Care patient: No
[2017-03-30] MEDS ORDERED: LORazepam 2 MG/ML SDV VIAL ONE (04:24)
[2017-03-30 06:11] LABS: SERUM IRON 34 ug/dL (38-169); TOTAL IRON BINDING CAPACITY 310 ug/dL (250-450); UIBC 276 ug/dL (111-343)
[2017-03-30] MEDS: TAMSULOSIN HCL 0.4 MG CAP.ER.24H (FP) PO SCH (08:08)
[2017-03-30 08:30] LABS: ANION GAP 11 (8-16); CALCIUM 8.7 mg/dL (8.5-10.1); CO2 21 mmol/L (21-32); CREATININE 2.6 mg/dL (0.7-1.3); GLUCOSE,RANDOM 88 mg/dL (74-106); LDH 212 U/L (87-241); MAGNESIUM 2.2 mg/dL (1.8-2.4); PHOSPHOROUS 3.3 mg/dL (2.5-4.9)
[2017-03-30 08:31] LABS: BASOPHIL 0.6 % (0-2.0); EOSINOPHIL 3.3 % (0-4.5); MCH 32.1 pg (25.7-33.7); MEAN CELL VOLUME 94.3 fl (80-96); MEAN PLT VOLUME 8.4 fl (7.5-11.1); NEUTROPHILS 79.6 % (42.8-82.8); PLATELET COUNT 255 K/MM3 (134-434); WHITE BLOOD COUNT 8.2 K/mm3 (4.0-10.0)
[2017-03-30 08:33] LABS: FERRITIN 49.046 ng/ml (16.4-293.9)
[2017-03-30] MEDS ORDERED: ESCITALOPRAM OXALATE 10 MG TABLET (FP) ONE (10:33)
[2017-03-30] MEDS ORDERED: PT OWN MED DRAWER 7, Y5N ONE (10:34)
[2017-03-30] MEDS: METOPROLOL SUCCINATE 25 MG TAB.SR.24H (FP) PO SCH (10:42)
[2017-03-30] MEDS: OLANZapine 2.5 MG TABLET PO SCH (10:43)
[2017-03-30] MEDS: ESCITALOPRAM OXALATE 20 MG TABLET (FP) PO SCH (10:43)
[2017-03-30] MEDS: RANITIDINE HCL 150 MG TABLET (FP) PO SCH ×2 (10:43→21:35)
[2017-03-30] MEDS: CILOSTAZOL 100 MG TABLET PO SCH ×2 (10:44→22:58)
[2017-03-30] MEDS: amLODIPine BESYLATE 10 MG TABLET (FP) PO SCH (10:44)
--- NOTE | 2017-03-30 13:12 | PN ---
Progress Note (short form) - Note Progress Note: Renal Follow up for SUZI/CKD Pt seen and examined at the bedside awake and alert no acute complaints pt only got ~500cc of IVF yesterday and then lost IV access and then would not allow another one to be put back in Vital Signs Temperature 98.1 F 03/30/17 10:00 Pulse Rate 63 03/30/17 10:00 Respiratory Rate 18 03/30/17 10:00 Blood Pressure 157/74 03/30/17 10:00 O2 Sat by Pulse Oximetry (%) 99 03/29/17 21:00 Intake & Output 03/27/17 03/28/17 03/29/17 03/30/17 23:59 23:59 23:59 23:59 Intake Total 1575 200 Output Total 4700 1550 Balance -3125 -1350 Weight 171 lb 3 oz 174 lb 5 oz Gen: NAD, awake and alert CVS: RRR, No M/R Lungs: CTA Abd: soft NT Ext: No edema CBC, BMP 03/30/17 06:40 03/30/17 06:40 Current Medications Acetaminophen (Tylenol -) 650 mg PO Q6H PRN PRN Reason: BACK PAIN Amlodipine Besylate (Norvasc -) 10 mg PO DAILY [facility] Last Admin: 03/30/17 10:44 Dose: 10 mg Cilostazol (Pletal -) 100 mg PO BID [facility] Last Admin: 03/30/17 10:44 Dose: 100 mg Escitalopram Oxalate (Lexapro -) 20 mg PO DAILY [facility] Last Admin: 03/30/17 10:43 Dose: 20 mg Sodium Chloride (1/2 Normal Saline) 1,000 mls @ 75 mls/hr IV ASDIR [facility] Stop: 03/30/17 14:14 Last Admin: 03/29/17 15:00 Dose: 75 mls/hr Metoprolol Succinate (Toprol Xl -) 25 mg PO DAILY [facility] Last Admin: 03/30/17 10:42 Dose: 25 mg Olanzapine (Zyprexa -) 7.5 mg PO DAILY [facility] Last Admin: 03/30/17 10:43 Dose: 7.5 mg Ranitidine HCl (Zantac -) 150 mg PO BID [facility] Last Admin: 03/30/17 10:43 Dose: 150 mg Tamsulosin HCl (Flomax -) 0.4 mg PO DAILY@0830 [facility] Last Admin: 03/30/17 08:08 Dose: 0.4 mg A/P 86 year old Gentleman with PMhx of CKD (baseline 2.1-2.6?), CHF, Anemia, GIB, Hyperlipidemia who was sent to the ED from [place] for acute on chronic anemia and found to have BUN/Cr of 61/2.9. #Acute on Chronic renal failure vs. progressive CKD and found to have urinary retention Harris place with good urine output pt with polyuria will need aggressive IVF hydration to prevent volume depletion from post obstructive diuresis continue flomax maintain harris as per Urology Trend BUN/cr and electrolytes #Acute Anemia Iron saturation ~11% will give IV iron 200mg IV x 1 Trend CBC s/p PRBC transfusion if Hgb remains < 10 s/p iron repeltion may need BLAIRE given his CKD Check SPEP Thank you Teja Mercedes DO Problem List - Problems (1) Anemia Code(s): D64.9 - ANEMIA, UNSPECIFIED (2) HTN (hypertension) Code(s): I10 - ESSENTIAL (PRIMARY) HYPERTENSION (3) Urinary retention Code(s): R33.9 - RETENTION OF URINE, UNSPECIFIED (4) Acute on chronic renal failure Code(s): N17.9 - ACUTE KIDNEY FAILURE, UNSPECIFIED N18.9 - CHRONIC KIDNEY DISEASE, UNSPECIFIED
[2017-03-30] MEDS ORDERED: SODIUM CHLORIDE 0.45% 1,000 ML IV SCH (13:15)
--- NOTE | 2017-03-30 13:52 | PN ---
Progress Note, Physician Chief Complaint: Mr Reynoso is without complaint. No cp, sob, n/v. - Current Medication List Current Medications: Active Medications Acetaminophen (Tylenol -) 650 mg PO Q6H PRN PRN Reason: BACK PAIN Amlodipine Besylate (Norvasc -) 10 mg PO DAILY [facility] Last Admin: 03/30/17 10:44 Dose: 10 mg Cilostazol (Pletal -) 100 mg PO BID [facility] Last Admin: 03/30/17 10:44 Dose: 100 mg Escitalopram Oxalate (Lexapro -) 20 mg PO DAILY [facility] Last Admin: 03/30/17 10:43 Dose: 20 mg Sodium Chloride (1/2 Normal Saline) 1,000 mls @ 100 mls/hr IV ASDIR [facility] Iron Sucrose 200 mg/ Sodium (Chloride) 100 mls @ 200 mls/hr IVPB ONCE ONE Stop: 03/30/17 14:29 Metoprolol Succinate (Toprol Xl -) 25 mg PO DAILY [facility] Last Admin: 03/30/17 10:42 Dose: 25 mg Olanzapine (Zyprexa -) 7.5 mg PO DAILY [facility] Last Admin: 03/30/17 10:43 Dose: 7.5 mg Ranitidine HCl (Zantac -) 150 mg PO BID [facility] Last Admin: 03/30/17 10:43 Dose: 150 mg Tamsulosin HCl (Flomax -) 0.4 mg PO DAILY@0830 [facility] Last Admin: 03/30/17 08:08 Dose: 0.4 mg - Objective Vital Signs: Vital Signs Temperature 36.7 C 03/30/17 10:00 Pulse Rate 63 03/30/17 10:00 Respiratory Rate 18 03/30/17 10:00 Blood Pressure 157/74 03/30/17 10:00 O2 Sat by Pulse Oximetry (%) 99 03/29/17 21:00 Constitutional: Yes: Well Nourished, No Distress, Calm Cardiovascular: Yes: Regular Rate and Rhythm. No: Gallop, Murmur, Rub Respiratory: Yes: Regular, CTA Bilaterally. No: Rales, Rhonchi, Wheezes Gastrointestinal: Yes: Normal Bowel Sounds, Soft. No: Distention, Tenderness Extremities: Yes: WNL Edema: No Labs: CBC, BMP 03/30/17 06:40 03/30/17 06:40 INR, PTT INR 1.04 (0.82-1.09) 03/28/17 20:10 Problem List - Problems (1) Anemia Code(s): D64.9 - ANEMIA, UNSPECIFIED (2) Acute on chronic renal failure Code(s): N17.9 - ACUTE KIDNEY FAILURE, UNSPECIFIED N18.9 - CHRONIC KIDNEY DISEASE, UNSPECIFIED (3) HTN (hypertension) Code(s): I10 - ESSENTIAL (PRIMARY) HYPERTENSION (4) Urinary retention Code(s): R33.9 - RETENTION OF URINE, UNSPECIFIED Assessment/Plan (1) Anemia Assessment/Plan: -case d/w hematology -give IV iron today -monitor -nephrology to evaluate if will benefit from epogen Code(s): D64.9 - ANEMIA, UNSPECIFIED (2) Acute on chronic renal failure Assessment/Plan: -nephrology following -continue aggressive IVF Code(s): N17.9 - ACUTE KIDNEY FAILURE, UNSPECIFIED N18.9 - CHRONIC KIDNEY DISEASE, UNSPECIFIED (3) HTN (hypertension) Assessment/Plan: -continue toprol xl and norvasc -controlled Code(s): I10 - ESSENTIAL (PRIMARY) HYPERTENSION (4) Urinary retention Assessment/Plan: -continue flomax -appreciate urology assistance -continue harris Code(s): R33.9 - RETENTION OF URINE, UNSPECIFIED
[2017-03-30] MEDS ORDERED: IRON SUCROSE INJECTION 200 MG in SODIUM CHLORIDE 90 ML IVPB ONE (14:00)
--- NOTE | 2017-03-30 20:37 | PN ---
Progress Note (short form) - Note Progress Note: pt seen and examined, is awake than yesterday, but does not provide much hx. Constitutional: Yes: Calm HENT: Yes: Atraumatic, Normocephalic Cardiovascular: Yes: Regular Rate and Rhythm, Murmur Respiratory: Yes: Regular Gastrointestinal: Yes: Normal Bowel Sounds, Soft Edema: No (rle in dressing) Last Vital Signs Temp Pulse Resp BP Pulse Ox 97.6 F 71 17 118/62 97 03/30/17 14:00 03/30/17 14:00 03/30/17 14:00 03/30/17 14:00 03/30/17 20:26 Current Medications Generic Name Dose Route Start Last Admin Trade Name Freq PRN Reason Stop Dose Admin Acetaminophen 650 mg 03/28/17 21:49 Tylenol - PO Q6H PRN BACK PAIN Amlodipine Besylate 10 mg 03/29/17 10:00 03/30/17 10:44 Norvasc - PO 10 mg DAILY [facility] Administration Cilostazol 100 mg 03/28/17 22:00 03/30/17 10:44 Pletal - PO 100 mg BID [facility] Administration Escitalopram Oxalate 20 mg 03/29/17 10:00 03/30/17 10:43 Lexapro - PO 20 mg DAILY [facility] Administration Sodium Chloride 1,000 mls @ 100 mls/hr 03/30/17 13:15 03/30/17 13:30 1/2 Normal Saline IV 100 mls/hr ASDIR C[facility] Administration Metoprolol Succinate 25 mg 03/29/17 10:00 03/30/17 10:42 Toprol Xl - PO 25 mg DAILY [facility] Administration Olanzapine 7.5 mg 03/29/17 10:00 03/30/17 10:43 Zyprexa - PO 7.5 mg DAILY [facility] Administration Ranitidine HCl 150 mg 03/28/17 22:00 03/30/17 10:43 Zantac - PO 150 mg BID [facility] Administration Tamsulosin HCl 0.4 mg 03/30/17 08:30 03/30/17 08:08 Flomax - PO 0.4 mg DAILY@0830 [facility] Administration CBC, BMP 03/30/17 06:40 03/30/17 06:40 Anemia SUZI on CKD HTN h/o CHF -stool occult blood negative. - iron studies reviewed , received venofer 200mg IV x1, may need a repeat dose -ACD/ACI in the setting of CKD is a possibility in addition to iron def , will add procrit if hgb remains low -s/p 2 U PRBC with appropriate response. -f/u SPEP. Problem List - Problems (1) Anemia Code(s): D64.9 - ANEMIA, UNSPECIFIED (2) Urinary retention Code(s): R33.9 - RETENTION OF URINE, UNSPECIFIED (3) Acute on chronic renal failure Code(s): N17.9 - ACUTE KIDNEY FAILURE, UNSPECIFIED N18.9 - CHRONIC KIDNEY DISEASE, UNSPECIFIED
[2017-03-30] MEDS: ACETAMINOPHEN 325 MG TABLET (FP) PO PRN (21:35)
[2017-03-31] MEDS: TAMSULOSIN HCL 0.4 MG CAP.ER.24H (FP) PO SCH (08:43)
[2017-03-31 09:03] LABS: BASOPHIL 0.4 % (0-2.0); EOSINOPHIL 1.5 % (0-4.5); MCH 32.4 pg (25.7-33.7); MEAN CELL VOLUME 95.4 fl (80-96); MEAN PLT VOLUME 8.3 fl (7.5-11.1); NEUTROPHILS 82.5 % (42.8-82.8); PLATELET COUNT 236 K/MM3 (134-434); RDW 17.1 % (11.9-15.9); WHITE BLOOD COUNT 5.8 K/mm3 (4.0-10.0)
[2017-03-31] MEDS ORDERED: PT OWN MED DRAWER 7, Y5N ONE ×2 (09:15→12:52)
[2017-03-31] MEDS ORDERED: ESCITALOPRAM OXALATE 10 MG TABLET (FP) ONE (09:15)
[2017-03-31] MEDS: amLODIPine BESYLATE 10 MG TABLET (FP) PO SCH (09:18)
[2017-03-31] MEDS: CILOSTAZOL 100 MG TABLET PO SCH ×2 (09:18→21:40)
[2017-03-31] MEDS: RANITIDINE HCL 150 MG TABLET (FP) PO SCH ×2 (09:19→21:40)
[2017-03-31] MEDS: OLANZapine 2.5 MG TABLET PO SCH (09:19)
[2017-03-31] MEDS: ESCITALOPRAM OXALATE 20 MG TABLET (FP) PO SCH (09:19)
[2017-03-31] MEDS: METOPROLOL SUCCINATE 25 MG TAB.SR.24H (FP) PO SCH (09:19)
[2017-03-31 09:24] LABS: ALBUMIN 2.8 g/dl (3.4-5.0); ANION GAP 9 (8-16); CALCIUM 8.4 mg/dL (8.5-10.1); CO2 21 mmol/L (21-32); CREATININE 2.5 mg/dL (0.7-1.3); GLUCOSE,RANDOM 87 mg/dL (74-106); MAGNESIUM 1.9 mg/dL (1.8-2.4); PHOSPHOROUS 3.4 mg/dL (2.5-4.9); SGOT/AST 14 U/L (15-37); SGPT/ALT 35 U/L (12-78)
[2017-03-31 09:26] LABS: ALK PHOS 136 U/L (45-117); BILIRUBIN,TOTAL 0.3 mg/dL (0.2-1.0); TOT PROT 4.9 g/dl (6.4-8.2)
--- NOTE | 2017-03-31 11:24 | PN ---
Progress Note (short form) - Note Progress Note: Renal Follow up for SUZI/CKD Pt seen and examined at the bedside pt very lethargic but nurse reports he was awake and alert and ate breakfast this am Vital Signs Temperature 97.6 F 03/31/17 08:56 Pulse Rate 66 03/31/17 08:56 Respiratory Rate 16 03/31/17 08:56 Blood Pressure 149/77 03/31/17 08:56 O2 Sat by Pulse Oximetry (%) 97 03/30/17 20:26 Intake & Output 03/28/17 03/29/17 03/30/17 03/31/17 23:59 23:59 23:59 23:59 Intake Total 1575 1800 Output Total 4700 2750 1000 Balance -3125 -950 -1000 Weight 171 lb 3 oz 174 lb 5 oz 176 lb 5 oz Gen: NAD, awake and alert CVS: RRR, No M/R Lungs: CTA Abd: soft NT Ext: No edema CBC, BMP 03/31/17 07:46 03/31/17 07:46 Current Medications Acetaminophen (Tylenol -) 650 mg PO Q6H PRN PRN Reason: BACK PAIN Last Admin: 03/30/17 21:35 Dose: 650 mg Amlodipine Besylate (Norvasc -) 10 mg PO DAILY [facility] Last Admin: 03/31/17 09:18 Dose: 10 mg Cilostazol (Pletal -) 100 mg PO BID [facility] Last Admin: 03/31/17 09:18 Dose: 100 mg Escitalopram Oxalate (Lexapro -) 20 mg PO DAILY [facility] Last Admin: 03/31/17 09:19 Dose: 20 mg Metoprolol Succinate (Toprol Xl -) 25 mg PO DAILY [facility] Last Admin: 03/31/17 09:19 Dose: 25 mg Olanzapine (Zyprexa -) 7.5 mg PO DAILY [facility] Last Admin: 03/31/17 09:19 Dose: 7.5 mg Ranitidine HCl (Zantac -) 150 mg PO BID [facility] Last Admin: 03/31/17 09:19 Dose: 150 mg Tamsulosin HCl (Flomax -) 0.4 mg PO DAILY@0830 [facility] Last Admin: 03/31/17 08:43 Dose: 0.4 mg A/P 86 year old Gentleman with PMhx of CKD (baseline 2.1-2.6?), CHF, Anemia, GIB, Hyperlipidemia who was sent to the ED from [place] for acute on chronic anemia and found to have BUN/Cr of 61/2.9. #Acute on Chronic renal failure vs. 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
--- NOTE | 2017-03-31 11:42 | PN ---
Physical Exam: SUBJECTIVE: Patient seen and examined and uneventful overnight. OBJECTIVE: Vital Signs Period Temp Pulse Resp BP Sys/Jeronimo Pulse Ox Last 24 Hr 97.3 F-97.6 F 66-90 16-19 114-160/62-77 97 GENERAL: The patient is awake, alert, In no distress HEAD: Normal with no signs of trauma. LUNGS: Breath sounds equal, clear to auscultation bilaterally, no wheezes, no crackles, no accessory muscle use. HEART: Regular rate and rhythm, S1, S2 without murmur, rub or gallop. ABDOMEN: Soft, nontender, nondistended, EXTREMITIES: 2+ pulses, warm, well-perfused, no edema. PSYCH: Normal mood, normal affect. SKIN: Warm, dry, normal turgor, no rashes or lesions noted Laboratory Results - last 24 hr 03/30/17 03/31/17 03/31/17 06:40 07:46 07:46 WBC 5.8 RBC 2.48 L Hgb 8.0 L Hct 23.6 L MCV 95.4 MCH 32.4 MCHC 34.0 RDW 17.1 H Plt Count 236 MPV 8.3 Neutrophils % 82.5 Lymphocytes % 6.1 L Monocytes % 9.5 Eosinophils % 1.5 Basophils % 0.4 Haptoglobin 65 Sodium 146 H Potassium 4.2 Chloride 116 H Carbon Dioxide 21 Anion Gap 9 BUN 49 H Creatinine 2.5 H Creat Clearance w eGFR 24.55 Random Glucose 87 Calcium 8.4 L Phosphorus 3.4 Magnesium 1.9 Total Bilirubin 0.3 D AST 14 L D ALT 35 D Alkaline Phosphatase 136 H Total Protein 4.9 L Albumin 2.8 L Active Medications Generic Name Dose Route Start Last Admin Trade Name Freq PRN Reason Stop Dose Admin Acetaminophen 650 mg 03/28/17 21:49 03/30/17 21:35 Tylenol - PO 650 mg Q6H PRN Administration BACK PAIN Amlodipine Besylate 10 mg 03/29/17 10:00 03/31/17 09:18 Norvasc - PO 10 mg DAILY [facility] Administration Cilostazol 100 mg 03/28/17 22:00 03/31/17 09:18 Pletal - PO 100 mg BID [facility] Administration Escitalopram Oxalate 20 mg 03/29/17 10:00 03/31/17 09:19 Lexapro - PO 20 mg DAILY [facility] Administration Metoprolol Succinate 25 mg 03/29/17 10:00 03/31/17 09:19 Toprol Xl - PO 25 mg DAILY [facility] Administration Olanzapine 7.5 mg 03/29/17 10:00 03/31/17 09:19 Zyprexa - PO 7.5 mg DAILY [facility] Administration Ranitidine HCl 150 mg 03/28/17 22:00 03/31/17 09:19 Zantac - PO 150 mg BID [facility] Administration Tamsulosin HCl 0.4 mg 03/30/17 08:30 03/31/17 08:43 Flomax - PO 0.4 mg DAILY@0830 [facility] Administration ASSESSMENT/PLAN: This 86 yr old male is in no distress. He is resting comfortable. Received PBRC and CBC stable Problem List - Problems (1) Anemia Code(s): D64.9 - ANEMIA, UNSPECIFIED (2) Acute on chronic renal failure Code(s): N17.9 - ACUTE KIDNEY FAILURE, UNSPECIFIED N18.9 - CHRONIC KIDNEY DISEASE, UNSPECIFIED (3) HTN (hypertension) Code(s): I10 - ESSENTIAL (PRIMARY) HYPERTENSION (4) Urinary retention Code(s): R33.9 - RETENTION OF URINE, UNSPECIFIED Assessment/Plan (1) Anemia Assessment/Plan: -appreciate hematology -cbc stable after PRBC yesterday will continue to trend. -monitor Code(s): D64.9 - ANEMIA, UNSPECIFIED (2) Acute on chronic renal failure Assessment/Plan: -nephrology following -continue aggressive IVF Code(s): N17.9 - ACUTE KIDNEY FAILURE, UNSPECIFIED N18.9 - CHRONIC KIDNEY DISEASE, UNSPECIFIED (3) HTN (hypertension) Assessment/Plan: -continue toprol xl and norvasc -controlled Code(s): I10 - ESSENTIAL (PRIMARY) HYPERTENSION (4) Urinary retention Assessment/Plan: -continue flomax -appreciate urology assistance -continue harris Code(s): R33.9 - RETENTION OF URINE, UNSPECIFIED Problem List - Problems (1) Anemia Code(s): D64.9 - ANEMIA, UNSPECIFIED Qualifiers: Anemia type: iron deficiency Iron deficiency anemia type: unspecified iron deficiency Qualified Code(s): D50.9 - Iron deficiency anemia, unspecified (2) HTN (hypertension) Code(s): I10 - ESSENTIAL (PRIMARY) HYPERTENSION (3) Urinary retention Code(s): R33.9 - RETENTION OF URINE, UNSPECIFIED (4) Acute on chronic renal failure Code(s): N17.9 - ACUTE KIDNEY FAILURE, UNSPECIFIED N18.9 - CHRONIC KIDNEY DISEASE, UNSPECIFIED Visit type - Emergency Visit Emergency Visit: No - New Patient This patient is new to me today: Yes Date on this admission: 03/31/17 - Critical Care Critical Care patient: No - Discharge Referral Referred to [facility] No
[2017-03-31] MEDS: ACETAMINOPHEN 325 MG TABLET (FP) PO PRN (21:40)
[2017-04-01] MEDS: TAMSULOSIN HCL 0.4 MG CAP.ER.24H (FP) PO SCH (08:48)
[2017-04-01 08:55] LABS: BASOPHIL 0.2 % (0-2.0); EOSINOPHIL 2.9 % (0-4.5); MCHC 33.5 g/dl (32.0-35.9); MEAN CELL VOLUME 95.5 fl (80-96); MEAN PLT VOLUME 8.4 fl (7.5-11.1); PLATELET COUNT 232 K/MM3 (134-434); RDW 16.8 % (11.9-15.9); WHITE BLOOD COUNT 6.3 K/mm3 (4.0-10.0)
[2017-04-01] MEDS ORDERED: PT OWN MED DRAWER 7, Y5N ONE (09:53)
[2017-04-01] MEDS ORDERED: ESCITALOPRAM OXALATE 10 MG TABLET (FP) ONE (09:53)
[2017-04-01] MEDS: CILOSTAZOL 100 MG TABLET PO SCH ×2 (10:51→22:57)
[2017-04-01] MEDS: ESCITALOPRAM OXALATE 20 MG TABLET (FP) PO SCH (10:51)
[2017-04-01] MEDS: amLODIPine BESYLATE 10 MG TABLET (FP) PO SCH (10:51)
[2017-04-01] MEDS: OLANZapine 2.5 MG TABLET PO SCH (10:52)
[2017-04-01] MEDS: RANITIDINE HCL 150 MG TABLET (FP) PO SCH ×2 (10:52→22:57)
[2017-04-01] MEDS: METOPROLOL SUCCINATE 25 MG TAB.SR.24H (FP) PO SCH (10:52)
--- NOTE | 2017-04-01 13:34 | PN ---
Physical Exam: SUBJECTIVE: Patient seen and examined at bedside. OBJECTIVE: Vital Signs Period Temp Pulse Resp BP Sys/Jeronimo Pulse Ox Last 24 Hr 97.7 F-98.8 F 57-66 18-20 104-134/50-68 96 GENERAL: The patient is A&Ox 2. In no apparent distress. LUNGS: Prolonged expiratory phase with wheezing HEART: Regular rate and rhythm, S1, S2, +murmur ABDOMEN: Soft, nontender, nondistended, normoactive bowel sounds, no guarding, no rebound EXTREMITIES: 2+ left pedal edema NEUROLOGICAL: Cranial nerves II through XII grossly intact. Normal speech, gait not observed. Laboratory Results - last 24 hr 04/01/17 07:35 WBC 6.3 RBC 2.38 L Hgb 7.6 L Hct 22.8 L MCV 95.5 MCH 32.0 MCHC 33.5 RDW 16.8 H Plt Count 232 MPV 8.4 Neutrophils % 81.0 Lymphocytes % 5.2 L Monocytes % 10.7 H Eosinophils % 2.9 D Basophils % 0.2 Active Medications Generic Name Dose Route Start Last Admin Trade Name Freq PRN Reason Stop Dose Admin Acetaminophen 650 mg 03/28/17 21:49 03/31/17 21:40 Tylenol - PO 650 mg Q6H PRN Administration BACK PAIN Amlodipine Besylate 10 mg 03/29/17 10:00 04/01/17 10:51 Norvasc - PO 10 mg DAILY CINTHYA Administration Cilostazol 100 mg 03/28/17 22:00 04/01/17 10:51 Pletal - PO 100 mg BID CINTHYA Administration Escitalopram Oxalate 20 mg 03/29/17 10:00 04/01/17 10:51 Lexapro - PO 20 mg DAILY CIN[facility]YA Administration Metoprolol Succinate 25 mg 03/29/17 10:00 04/01/17 10:52 Toprol Xl - PO 25 mg DAILY [facility] Administration Olanzapine 7.5 mg 03/29/17 10:00 04/01/17 10:52 Zyprexa - PO 7.5 mg DAILY [facility] Administration Ranitidine HCl 150 mg 03/28/17 22:00 04/01/17 10:52 Zantac - PO 150 mg BID [facility]IN[facility] Administration Tamsulosin HCl 0.4 mg 03/30/17 08:30 04/01/17 08:48 Flomax - PO 0.4 mg DAILY@0830 [facility] Administration ASSESSMENT/PLAN: 86 year-old male with a PMH of HTN, HLD, CAD, systolic HF, GIB, CKD, and anemia. Admitted for acute kidney failure and acute anemia. Acute on Chronic renal failure Urinary retention --Cr 2.9 on admission, 2.5 today, baseline 2.1-->2.6 --continue harris --continue flomax --dose all meds for Cr Cl less then 15 --renal following Acute Anemia --Hgb 6.6 on admission, transfused 2U PRBCs on 03/29, now slowly trending down 8.8-->8.0-->7.6 --stool occult negative --received venofer x 1 dose --hematology following, will add procrit if Hgb remains low; f/u SPEP Hypertension --BP well-controlled --continue Toprol XL and amlodipine Acute on chronic systolic heart failure --03/29 echo: LV mildly reduced, mild global hypokinesis; RV normal; mild MR; trace TR, mild pHTN, moderate --03/31 CXR: increasing congestive changes --wheezing on today's exam and pedal edema; up 2.5kg since admission --start Lasix IV 40mg --strict I&Os, daily weights DVT prophylaxis: hold chemoprophylaxis due to anemia; SCDs, oob, ambulation Pt evaluation ordered Visit type - Emergency Visit Emergency Visit: Yes ED Registration Date: 03/28/17 Care time: The patient presented to the Emergency Department on the above date and was hospitalized for further evaluation of their emergent condition. - New Patient This patient is new to me today: Yes Date on this admission: 04/01/17 - Critical Care Critical Care patient: No
[2017-04-01] MEDS: FUROSEMIDE 40 MG/4 ML INJECTABLE VIAL IVPUSH SCH (22:57)
[2017-04-02 08:55] LABS: BASOPHIL 0.6 % (0-2.0); EOSINOPHIL 4.6 % (0-4.5); MCH 32.3 pg (25.7-33.7); MCHC 33.5 g/dl (32.0-35.9); MEAN CELL VOLUME 96.6 fl (80-96); MEAN PLT VOLUME 8.4 fl (7.5-11.1); NEUTROPHILS 77.9 % (42.8-82.8); PLATELET COUNT 249 K/MM3 (134-434); RDW 16.6 % (11.9-15.9); WHITE BLOOD COUNT 6.2 K/mm3 (4.0-10.0)
[2017-04-02 09:13] LABS: MAGNESIUM 2.1 mg/dL (1.8-2.4); PHOSPHOROUS 4.5 mg/dL (2.5-4.9)
[2017-04-02] MEDS ORDERED: ESCITALOPRAM OXALATE 10 MG TABLET (FP) ONE (09:13)
[2017-04-02] MEDS ORDERED: PT OWN MED DRAWER 7, Y5N ONE ×2 (09:14→21:33)
[2017-04-02] MEDS: ESCITALOPRAM OXALATE 20 MG TABLET (FP) PO SCH (09:18)
[2017-04-02] MEDS: METOPROLOL SUCCINATE 25 MG TAB.SR.24H (FP) PO SCH (09:18)
[2017-04-02] MEDS: RANITIDINE HCL 150 MG TABLET (FP) PO SCH ×2 (09:18→22:52)
[2017-04-02] MEDS: TAMSULOSIN HCL 0.4 MG CAP.ER.24H (FP) PO SCH (09:18)
[2017-04-02] MEDS: amLODIPine BESYLATE 10 MG TABLET (FP) PO SCH (09:18)
[2017-04-02] MEDS: FUROSEMIDE 40 MG/4 ML INJECTABLE VIAL IVPUSH SCH (09:19)
[2017-04-02] MEDS: OLANZapine 2.5 MG TABLET PO SCH (09:19)
[2017-04-02] MEDS: CILOSTAZOL 100 MG TABLET PO SCH ×2 (09:19→22:52)
[2017-04-02] MEDS ORDERED: FUROSEMIDE 40 MG/4 ML INJECTABLE VIAL IVPUSH SCH (10:00)
--- NOTE | 2017-04-02 10:55 | PN ---
Progress Note, Physician Chief Complaint: Mr Reynoso says he feels fine. No cp, sob, n/v. - Current Medication List Current Medications: Active Medications Acetaminophen (Tylenol -) 650 mg PO Q6H PRN PRN Reason: BACK PAIN Last Admin: 03/31/17 21:40 Dose: 650 mg Amlodipine Besylate (Norvasc -) 10 mg PO DAILY [facility] Last Admin: 04/02/17 09:18 Dose: 10 mg Cilostazol (Pletal -) 100 mg PO BID [facility] Last Admin: 04/02/17 09:19 Dose: 100 mg Escitalopram Oxalate (Lexapro -) 20 mg PO DAILY [facility] Last Admin: 04/02/17 09:18 Dose: 20 mg Furosemide (Lasix Injection -) 40 mg IVPUSH DAILY [facility] Last Admin: 04/02/17 09:19 Dose: 40 mg Metoprolol Succinate (Toprol Xl -) 25 mg PO DAILY [facility] Last Admin: 04/02/17 09:18 Dose: 25 mg Olanzapine (Zyprexa -) 7.5 mg PO DAILY [facility] Last Admin: 04/02/17 09:19 Dose: 7.5 mg Ranitidine HCl (Zantac -) 150 mg PO BID [facility] Last Admin: 04/02/17 09:18 Dose: 150 mg Tamsulosin HCl (Flomax -) 0.4 mg PO DAILY@0830 [facility] Last Admin: 04/02/17 09:18 Dose: 0.4 mg - Objective Vital Signs: Vital Signs Temperature 36.6 C 04/02/17 08:00 Pulse Rate 61 04/02/17 08:00 Respiratory Rate 18 04/02/17 08:00 Blood Pressure 156/74 04/02/17 08:00 O2 Sat by Pulse Oximetry (%) 95 04/01/17 20:59 Constitutional: Yes: Well Nourished, No Distress, Calm Cardiovascular: Yes: Regular Rate and Rhythm. No: Gallop, Murmur, Rub Respiratory: Yes: Regular, CTA Bilaterally. No: Rales, Rhonchi, Wheezes Gastrointestinal: Yes: Normal Bowel Sounds, Soft. No: Distention, Tenderness Extremities: Yes: WNL Edema: No Labs: CBC, BMP 04/02/17 08:15 03/31/17 07:46 INR, PTT INR 1.04 (0.82-1.09) 03/28/17 20:10 Problem List - Problems (1) Anemia Code(s): D64.9 - ANEMIA, UNSPECIFIED Qualifiers: Anemia type: iron deficiency Iron deficiency anemia type: unspecified iron deficiency Qualified Code(s): D50.9 - Iron deficiency anemia, unspecified (2) Acute on chronic renal failure Code(s): N17.9 - ACUTE KIDNEY FAILURE, UNSPECIFIED N18.9 - CHRONIC KIDNEY DISEASE, UNSPECIFIED (3) HTN (hypertension) Code(s): I10 - ESSENTIAL (PRIMARY) HYPERTENSION (4) Urinary retention Code(s): R33.9 - RETENTION OF URINE, UNSPECIFIED Assessment/Plan (1) Anemia Assessment/Plan: -stable after IV iron -continue treatment as an outpatient -stable Code(s): D64.9 - ANEMIA, UNSPECIFIED (2) Acute on chronic renal failure Assessment/Plan: -nephrology following -stabilized Code(s): N17.9 - ACUTE KIDNEY FAILURE, UNSPECIFIED N18.9 - CHRONIC KIDNEY DISEASE, UNSPECIFIED (3) HTN (hypertension) Assessment/Plan: -continue toprol xl and norvasc -controlled Code(s): I10 - ESSENTIAL (PRIMARY) HYPERTENSION (4) Urinary retention Assessment/Plan: -continue flomax and harris Code(s): R33.9 - RETENTION OF URINE, UNSPECIFIED Dispo -possible discharge tomorrow
--- NOTE | 2017-04-02 13:13 | PN ---
Progress Note (short form) - Note Progress Note: Renal Follow up for SUZI/CKD Pt seen and examined at the hallway no acute complaints good urine production nursing staff reports that the pt continues to pull at the harris caheter has gross hematuria in the catheter now Vital Signs Temperature 98 F 04/02/17 08:00 Pulse Rate 61 04/02/17 08:00 Respiratory Rate 18 04/02/17 08:00 Blood Pressure 156/74 04/02/17 08:00 O2 Sat by Pulse Oximetry (%) 95 04/02/17 09:00 Intake & Output 03/30/17 03/31/17 04/01/17 04/02/17 23:59 23:59 23:59 23:59 Intake Total 9489 584 2630 400 Output Total 2750 1400 1200 2200 Balance -950 -700 50 -1800 Weight 176 lb 5 oz 177 lb 6 oz 172 lb 2 oz Gen: NAD, awake and alert CVS: RRR, No M/R Lungs: CTA Abd: soft NT Ext: No edema CBC, BMP 04/02/17 08:15 03/31/17 07:46 Current Medications Acetaminophen (Tylenol -) 650 mg PO Q6H PRN PRN Reason: BACK PAIN Last Admin: 03/31/17 21:40 Dose: 650 mg Amlodipine Besylate (Norvasc -) 10 mg PO DAILY [facility] Last Admin: 04/02/17 09:18 Dose: 10 mg Cilostazol (Pletal -) 100 mg PO BID [facility] Last Admin: 04/02/17 09:19 Dose: 100 mg Escitalopram Oxalate (Lexapro -) 20 mg PO DAILY [facility] Last Admin: 04/02/17 09:18 Dose: 20 mg Furosemide (Lasix Injection -) 40 mg IVPUSH DAILY [facility] Last Admin: 04/02/17 09:19 Dose: 40 mg Metoprolol Succinate (Toprol Xl -) 25 mg PO DAILY [facility] Last Admin: 04/02/17 09:18 Dose: 25 mg Olanzapine (Zyprexa -) 7.5 mg PO DAILY [facility] Last Admin: 04/02/17 09:19 Dose: 7.5 mg Ranitidine HCl (Zantac -) 150 mg PO BID [facility] Last Admin: 04/02/17 09:18 Dose: 150 mg Tamsulosin HCl (Flomax -) 0.4 mg PO DAILY@0830 [facility] Last Admin: 04/02/17 09:18 Dose: 0.4 mg A/P 86 year old Gentleman with PMhx of CKD (baseline 2.1-2.6?), CHF, Anemia, GIB, Hyperlipidemia who was sent to the ED from [place] for acute on chronic anemia and found to have BUN/Cr of 61/2.9. #Acute on Chronic renal failure vs. progressive CKD and found to have urinary retention no new labs this am off IVF, on Lasix 40mg IV daily added labs to ones collected this am, will follow Trend BUN/Cr #Acute Anemia s/p PRBC transfusion and Iron infusion Trend CBC SPEP pending Heme following Thank you Teja Mercedes DO Problem List - Problems (1) Anemia Code(s): D64.9 - ANEMIA, UNSPECIFIED Qualifiers: Anemia type: iron deficiency Iron deficiency anemia type: unspecified iron deficiency Qualified Code(s): D50.9 - Iron deficiency anemia, unspecified (2) HTN (hypertension) Code(s): I10 - ESSENTIAL (PRIMARY) HYPERTENSION (3) Urinary retention Code(s): R33.9 - RETENTION OF URINE, UNSPECIFIED (4) Acute on chronic renal failure Code(s): N17.9 - ACUTE KIDNEY FAILURE, UNSPECIFIED N18.9 - CHRONIC KIDNEY DISEASE, UNSPECIFIED
[2017-04-02 16:03] LABS: ANION GAP 10 (8-16); CALCIUM 8.6 mg/dL (8.5-10.1); CO2 21 mmol/L (21-32); GLUCOSE,RANDOM 88 mg/dL (74-106)
[2017-04-03 08:33] LABS: BASOPHIL 0.7 % (0-2.0); EOSINOPHIL 7.5 % (0-4.5); MCH 31.9 pg (25.7-33.7); MCHC 33.3 g/dl (32.0-35.9); MEAN CELL VOLUME 96.1 fl (80-96); MEAN PLT VOLUME 8.6 fl (7.5-11.1); NEUTROPHILS 71.3 % (42.8-82.8); PLATELET COUNT 225 K/MM3 (134-434); RDW 16.1 % (11.9-15.9); WHITE BLOOD COUNT 5.8 K/mm3 (4.0-10.0)
[2017-04-03 08:47] LABS: ANION GAP 10 (8-16); CALCIUM 8.6 mg/dL (8.5-10.1); CO2 23 mmol/L (21-32); CREATININE 3.1 mg/dL (0.7-1.3); GLUCOSE,RANDOM 93 mg/dL (74-106); PHOSPHOROUS 4.1 mg/dL (2.5-4.9)
[2017-04-03] MEDS ORDERED: PT OWN MED DRAWER 7, Y5N ONE (09:29)
[2017-04-03] MEDS: FUROSEMIDE 40 MG/4 ML INJECTABLE VIAL IVPUSH SCH (09:30)
[2017-04-03] MEDS: RANITIDINE HCL 150 MG TABLET (FP) PO SCH (09:30)
[2017-04-03] MEDS: OLANZapine 2.5 MG TABLET PO SCH (09:30)
[2017-04-03] MEDS: CILOSTAZOL 100 MG TABLET PO SCH (09:30)
[2017-04-03] MEDS: METOPROLOL SUCCINATE 25 MG TAB.SR.24H (FP) PO SCH (09:30)
[2017-04-03] MEDS: amLODIPine BESYLATE 10 MG TABLET (FP) PO SCH (09:30)
[2017-04-03] MEDS: TAMSULOSIN HCL 0.4 MG CAP.ER.24H (FP) PO SCH (09:30)
[2017-04-03] MEDS: ESCITALOPRAM OXALATE 20 MG TABLET (FP) PO SCH (09:30)
--- NOTE | 2017-04-03 11:38 | DS ---
Physical Examination Vital Signs: Vital Signs Temperature 36.4 C L 04/03/17 08:00 Pulse Rate 64 04/03/17 08:00 Respiratory Rate 18 04/03/17 08:00 Blood Pressure 151/69 04/03/17 08:00 O2 Sat by Pulse Oximetry (%) 96 04/02/17 21:00 Constitutional: Yes: Well Nourished, No Distress, Calm Cardiovascular: Yes: Regular Rate and Rhythm. No: Gallop, Murmur, Rub Respiratory: Yes: Regular, CTA Bilaterally. No: Rales, Rhonchi, Wheezes Gastrointestinal: Yes: Normal Bowel Sounds, Soft. No: Distention, Tenderness Extremities: Yes: WNL Edema: No Labs: CBC, BMP 04/03/17 07:00 04/03/17 07:00 Discharge Summary Reason For Visit: ABNORMAL LABS Current Active Problems Anemia (Acute) HTN (hypertension) (Acute) Urinary retention (Acute) Hospital Course: (1) Anemia Code(s): D64.9 - ANEMIA, UNSPECIFIED Qualifiers: Anemia type: iron deficiency Iron deficiency anemia type: unspecified iron deficiency Qualified Code(s): D50.9 - Iron deficiency anemia, unspecified (2) Acute on chronic renal failure Code(s): N17.9 - ACUTE KIDNEY FAILURE, UNSPECIFIED N18.9 - CHRONIC KIDNEY DISEASE, UNSPECIFIED (3) HTN (hypertension) Code(s): I10 - ESSENTIAL (PRIMARY) HYPERTENSION (4) Urinary retention Code(s): R33.9 - RETENTION OF URINE, UNSPECIFIED Mr Reynoso is an 86 year old gentleman who came in with anemia. He was admitted to the hospital. He was seen by hematology and nephrology. He was given IV iron and his hemoglobin improved. He was also treated for ARF on CKD. He was found to have urinary retention and was seen by urology. Harris was placed and started on flomax. He can be discharged with harris in place. He is safe for discharge back to SNF. 31 minutes spent in preparation of this discharge Condition: Stable - Instructions Diet, Activity, Other Instructions: sodium controlled diet. Up with assistance, further activity per PT. Discharge with harris, outpatient evaluation for removal with urology. Referrals: Cesario Montiel MD [Primary Care Provider] - Teja Mercedes MD [Staff Physician] - Vivek Gonzales MD [Staff Physician] - Disposition: [facility] - Home Medications Comprehensive Discharge Medication List: Ambulatory Orders Acetaminophen [Tylenol] 650 mg PO DAILY 03/28/17 Amlodipine Besylate [Norvasc -] 10 mg PO DAILY 03/28/17 Ascorbate Calcium [Vitamin C] 500 mg PO BID 03/28/17 Cilostazol 100 mg PO BID 03/28/17 Docusate Sodium [Colace -] 100 mg PO DAILY 03/28/17 Escitalopram Oxalate [Lexapro -] 20 mg PO DAILY 03/28/17 Ferrous Sulfate 325 mg PO BID 03/28/17 Furosemide [Lasix] 20 mg PO DAILY 03/28/17 Krill/Fisher-3/Dha/Epa/Lipids [Krill Oil 300 mg Softgel] 1 each PO DAILY Metoprolol Succinate [Toprol XL -] 25 mg PO DAILY 03/28/17 Multivitamin [One Daily] 1 each PO DAILY 03/28/17 Olanzapine 15 mg PO DAILY 03/28/17 Perphenazine [Trilafon -] 0.5 mg PO DAILY 03/28/17 Petrolatum,White/Lanolin [Vitamin A & D Ointment] 454 gm TP BID 03/28/17 Ranitidine [Zantac -] 150 mg PO BID 03/28/17 Tamsulosin HCl [Flomax -] 0.4 mg PO DAILY@0830 cap.[facility] 04/03/17
--- NOTE | 2017-04-03 16:02 | PN ---
Progress Note (short form) - Note Progress Note: Renal Follow up for SUZI/CKD Pt seen and examined at the hallway no acute complaints no sob, chest pain, abd pain, N/V/D for discharge today Cr kamilah to 3.1 today Vital Signs Temperature 97.4 F L 04/03/17 13:54 Pulse Rate 58 L 04/03/17 13:54 Respiratory Rate 18 04/03/17 08:00 Blood Pressure 116/59 04/03/17 13:54 O2 Sat by Pulse Oximetry (%) 94 L 04/03/17 09:00 Intake & Output 03/31/17 04/01/17 04/02/17 04/03/17 23:59 23:59 23:59 23:59 Intake Total 700 1250 1450 790 Output Total 1400 1200 4400 700 Balance -700 50 -2950 90 Weight 176 lb 5 oz 177 lb 6 oz 172 lb 2 oz 174 lb 6 oz Gen: NAD, awake and alert CVS: RRR, No M/R Lungs: CTA Abd: soft NT Ext: No edema CBC, BMP 04/03/17 07:00 04/03/17 07:00 Laboratory Tests 03/30/17 03/31/17 04/02/17 06:40 07:46 08:15 Calcium 8.7 8.4 L Phosphorus 3.3 3.4 4.5 D Magnesium 2.2 1.9 2.1 LD Total 212 04/03/17 07:00 Calcium 8.6 Phosphorus 4.1 Magnesium 2.0 LD Total Current Medications Acetaminophen (Tylenol -) 650 mg PO Q6H PRN PRN Reason: BACK PAIN Last Admin: 03/31/17 21:40 Dose: 650 mg Amlodipine Besylate (Norvasc -) 10 mg PO DAILY [facility] Last Admin: 04/03/17 09:30 Dose: 10 mg Cilostazol (Pletal -) 100 mg PO BID [facility] Last Admin: 04/03/17 09:30 Dose: 100 mg Escitalopram Oxalate (Lexapro -) 20 mg PO DAILY [facility] Last Admin: 04/03/17 09:30 Dose: 20 mg Metoprolol Succinate (Toprol Xl -) 25 mg PO DAILY [facility] Last Admin: 04/03/17 09:30 Dose: 25 mg Olanzapine (Zyprexa -) 7.5 mg PO DAILY [facility] Last Admin: 04/03/17 09:30 Dose: 7.5 mg Ranitidine HCl (Zantac -) 150 mg PO BID [facility] Last Admin: 04/03/17 09:30 Dose: 150 mg Tamsulosin HCl (Flomax -) 0.4 mg PO DAILY@0830 [facility] Last Admin: 04/03/17 09:30 Dose: 0.4 mg A/P 86 year old Gentleman with PMhx of CKD (baseline 2.1-2.6?), CHF, Anemia, GIB, Hyperlipidemia who was sent to the ED from [place] for acute on chronic anemia and found to have BUN/Cr of 61/2.9. #Acute on Chronic renal failure vs. progressive CKD and found to have urinary retention Cr kamilah to 3.1 but likely due to IV Lasix pt still with some edema but will be discharged on oral Lasix at less potency Repeat labs in 2-3 days as outpatient Maintain harris until follow up with urology #Acute Anemia s/p PRBC transfusion and Iron infusion Thank you Teja Mercedes DO Problem List - Problems (1) Anemia Code(s): D64.9 - ANEMIA, UNSPECIFIED Qualifiers: Anemia type: iron deficiency Iron deficiency anemia type: unspecified iron deficiency Qualified Code(s): D50.9 - Iron deficiency anemia, unspecified (2) HTN (hypertension) Code(s): I10 - ESSENTIAL (PRIMARY) HYPERTENSION (3) Urinary retention Code(s): R33.9 - RETENTION OF URINE, UNSPECIFIED (4) Acute on chronic renal failure Code(s): N17.9 - ACUTE KIDNEY FAILURE, UNSPECIFIED N18.9 - CHRONIC KIDNEY DISEASE, UNSPECIFIED
[2017-04-03 18:15] VITALS: BP 128/60; PULSE 61; TEMP 97.9
[2017-04-04 00:06] LABS: A/G RATIO 1.7 (0.7-1.7); ALBUMIN 3.3 g/dL (2.9-4.4); ALPHA-1-GLOBULIN 0.2 g/dL (0.0-0.4); BETA GLOBULIN 0.9 g/dL (0.7-1.3); GAMMA GLOBULIN 0.4 g/dL (0.4-1.8); M-SPIKE Not Observed g/dL (Not Observed); TOTAL PROTEIN 5.3 g/dL (6.0-8.5)
== END 2017-04-03 18:31 | DRG 682 ==
LOC: JER 18:27 → JERBED 22:53 → J6S 03-29 02:24
PROVIDERS: ADMIT Internal Medicine Geriatric Medicine; ATTEND Nurse Practitioner Acute Care
PROC: 30233N1 Transfusion of Nonautologous Red Blood Cells into Peripheral Vein, Percutaneous Approach (ICD-10-PCS; principal; 2017-03-29)
DX: N17.9 Acute kidney failure, unspecified (principal); I50.23 Acute on chronic systolic (congestive) heart failure; I13.0 Hypertensive heart and chronic kidney disease with heart failure and stage 1 through stage 4 chronic kidney disease, or unspecified chronic kidney disease; D50.9 Iron deficiency anemia, unspecified; F03.90 Unspecified dementia, unspecified severity, without behavioral disturbance, psychotic disturbance, mood disturbance, and anxiety; R33.8 Other retention of urine; N18.9 Chronic kidney disease, unspecified; E78.5 Hyperlipidemia, unspecified; I25.10 Atherosclerotic heart disease of native coronary artery without angina pectoris; I27.2 Other secondary pulmonary hypertension; I35.0 Nonrheumatic aortic (valve) stenosis; I36.1 Nonrheumatic tricuspid (valve) insufficiency; I34.0 Nonrheumatic mitral (valve) insufficiency
CPT/HCPCS: 36415; 36430; 71010-TC; 76775-TC; 76856-TC; 80048; 80053; 81003; 81015; 82272; 82436; 82553; 82570; 82607; 82728; 82746; 82784; 83010; 83540; 83550; 83615; 83735; 83880; 84100; 84133; 84155; 84156; 84165; 84300; 84443; 84484; 85025; 85610; 86334; 86850; 86900; 86901; 86922; 87086; 93005; 93010; 93306-TC; 93970-TC; 97116-GP; 97161-GP; 99284-25; J1756; P9038; P9058

== ENCOUNTER 2017-04-05 09:26 | Inpatient (IN) | payer OTHER ==
[2017-04-05] MEDS ORDERED: ALBUTEROL SO4 2.5/IPRATROPIUM 0.5 INH SOL 3 ML VIAL.NEB. NEB ONE ×2 (10:01→10:02)
--- NOTE | 2017-04-05 10:08 | PDOC ---
History of Present Illness - General History Source: Patient Exam Limitations: Clinical Condition - History of Present Illness Initial Comments: The patient is an 86 yo M with a past medical history significant for BPH with urinary retention, HTN, CHF, depression and schizophrenia, chronic kidney disease and anemia who presents from [facility] with hematuria s/p attempting to remove harris catheter. The patient is a poor historian secondary to clinical condition. The patient also endorses associated cough. The patient was admitted here from the - for abnormal labs under Dr. Diaz. While here, he was seen for anemia and renal failure, seen by urology and started on flomax. Allergies: NKDA <Shruti Cano - Last Filed: 04/05/17 11:22> - General History Source: Patient, Residential Records, Old Records Exam Limitations: Clinical Condition <Miriam Shah - Last Filed: 04/05/17 13:37> - General Chief Complaint: Hematuria Stated Complaint: Catheter Problem Time Seen by Provider: 04/05/17 09:51 Past History <Shruti Cano - Last Filed: 04/05/17 11:22> - Past Medical History Anemia: Yes Asthma: No Cancer: No Cardiac Disorders: Yes (CHF) CVA: No COPD: No CHF: No Dementia: No Diabetes: No GI Disorders: Yes (GI BLD-TRANSFUSED) Disorders: Yes (CKD) HTN: Yes Hypercholesterolemia: Yes Liver Disease: No Seizures: No Thyroid Disease: No - Surgical History Abdominal Surgery: No Appendectomy: No Cardiac Surgery: No Cholecystectomy: Yes Lung Surgery: No Neurologic Surgery: No Orthopedic Surgery: No - Psycho/Social/Smoking Cessation Hx Anxiety: No Suicidal Ideation: No Smoking History: Unknown if ever smoked Have you smoked in the past 12 months: No Number of Cigarettes Smoked Daily: 15 If you are a former smoker, when did you quit?: does not remember Information on smoking cessation initiated: No 'Breaking Loose' booklet given: 01/26/17 Hx Alcohol Use: No Drug/Substance Use Hx: No Substance Use Type: None Hx Substance Use Treatment: No <Miriam Shah - Last Filed: 04/05/17 13:37> - Past Medical History Allergies/Adverse Reactions: Allergies Allergy/AdvReac Type Severity Reaction Status Date / Time No Known Drug Allergies Allergy Verified 04/05/17 09:36 Home Medications: Ambulatory Orders Acetaminophen [Tylenol] 650 mg PO DAILY 04/05/17 Amlodipine Besylate 10 mg PO DAILY 04/05/17 Ascorbate Calcium [Vitamin C] 500 mg PO BID 04/05/17 Cilostazol 100 mg PO BID 04/05/17 Docusate Sodium [Colace -] 100 mg PO HS 04/05/17 Escitalopram Oxalate [Lexapro -] 20 mg PO DAILY 04/05/17 Ferrous Sulfate 325 mg PO BID 04/05/17 Furosemide [Lasix] 20 mg PO DAILY 04/05/17 Krill Oil/[place]-3/Dha/Epa [[place]-3 Krill Oil Softgel] 1 each PO DAILY 04/05/17 Metoprolol Succinate [Toprol Xl -] 25 mg PO DAILY 04/05/17 Multivitamin [One Daily] 1 each PO DAILY 04/05/17 Olanzapine 7.5 mg PO DAILY 04/05/17 Perphenazine [Trilafon] 0.5 mg PO DAILY 04/05/17 Petrolatum,White/Lanolin [Vitamin A & D Ointment] 454 gm TP BID 04/05/17 Ranitidine [Zantac -] 150 mg PO BID 04/05/17 Tamsulosin HCl [Flomax] 0.4 mg PO DAILY 04/05/17 Review of Systems - Review of Systems Able to Perform ROS?: Yes Comments:: CONSTITUTIONAL: Absent: fever, chills, diaphoresis, generalized weakness, malaise, loss of appetite HEENT: Absent: rhinorrhea, nasal congestion, throat pain, throat swelling, difficulty swallowing, mouth swelling, ear pain, eye pain, visual Changes CARDIOVASCULAR: Absent: chest pain, syncope, palpitations, irregular heart rate, lightheadedness , peripheral edema RESPIRATORY: +cough Absent: shortness of breath, dyspnea with exertion, orthopnea, wheezing, stridor , hemoptysis GASTROINTESTINAL: Absent: abdominal pain, abdominal distension, nausea, vomiting, diarrhea, constipation, melena, hematochezia GENITOURINARY: +hematuria Absent: dysuria, frequency, urgency, hesitancy, flank pain, genital pain MUSCULOSKELETAL: Absent: myalgia, arthralgia, joint swelling SKIN: Absent: rash, itching, pallor NEUROLOGIC: Absent: headache, focal weakness or paresthesias, dizziness, unsteady gait, seizure, mental status changes, bladder or bowel incontinence PSYCHIATRIC: Absent: anxiety, depression, suicidal or homicidal ideation, hallucinations. <Shruti Cano - Last Filed: 04/05/17 11:22> *Physical Exam - Vital Signs Last Vital Signs Temp Pulse Resp BP Pulse Ox 94.6 F L 58 L 22 118/42 97 04/05/17 09:51 04/05/17 09:41 04/05/17 09:41 04/05/17 09:41 04/05/17 09:41 - Physical Exam Comments: GENERAL: Well developed, well nourished. Alert and oriented to person and place. No acute distress. HEENT: Normocephalic, atraumatic. PERRLA, EOMI. No conjunctival pallor. Sclera are non- icteric. Moist mucous membranes. Oropharynx is clear. NECK: Supple. Full ROM. No JVD. Carotid pulses 2+ and symmetric, without bruits. No thyromegaly. No lymphadenopathy. CARDIOVASCULAR: Regular rate and rhythm. No murmurs, rubs, or gallops. Distal pulses are 2+ and symmetric. PULMONARY: No evidence of respiratory distress. Diffuse expiratory wheezes. No rales or rhonchi. ABDOMINAL: Soft. Non-tender. Non-distended. No rebound or guarding. No organomegaly. Normoactive bowel sounds. MUSCULOSKELETAL Normal range of motion at all joints. No bony deformities or tenderness. No CVA tenderness. EXTREMITIES: 1-2+ Bipedal edema. RLE erythema circumferential foot extending to mid calf on his anterior medial and distal tib/fib region the patient has a 2 by 1.5 cm superficial ulceration. Excoriation of 2nd and 3rd toe around the toenail on the RLE. Various areas of ecchymosis to bilateral UEs. No cyanosis. No clubbing. No calf tenderness. SKIN: Warm and dry. 3 by 3 cm mobile skin lesion on back in the L scapular region. Normal capillary refill. No rashes. No jaundice. NEUROLOGICAL: No gross focal neurological deficits. PSYCHIATRIC: Cooperative. Good eye contact. Appropriate mood and affect. <Shruti Cano - Last Filed: 04/05/17 11:22> - Vital Signs Last Vital Signs Temp Pulse Resp BP Pulse Ox 94.6 F L 58 L 22 118/42 97 04/05/17 09:51 04/05/17 09:41 04/05/17 09:41 04/05/17 09:41 04/05/17 09:41 <Miriam Shah - Last Filed: 04/05/17 13:37> Heart Score/ECG Review #1 NSR@ 65bpm. Normal axis intervals. No acute ST segment changes. <Shruti Cano - Last Filed: 04/05/17 11:22> ED Treatment Course - LABORATORY CBC & Chemistry Diagram: 04/05/17 10:16 04/05/17 10:16 <Shruti Cano - Last Filed: 04/05/17 11:22> - LABORATORY CBC & Chemistry Diagram: 04/05/17 10:16 04/05/17 10:16 - RADIOLOGY Radiology Studies Ordered: Category Date Time Status CHEST X-RAY PORTABLE* [RAD] Stat Radiology 04/05/17 10:01 Ordered <Miriam Shah - Last Filed: 04/05/17 13:37> Medical Decision Making - Medical Decision Making 04/05/17 10:05 86-year-old male with history of hypertension, BPH with urinary retention and indwelling Harris catheter, chronic kidney disease, psychiatric illness recently admitted with acute on chronic kidney disease and a urinary retention as well as anemia presents to the emergency department from the correction for evaluation of hematuria; of note the patient is coughing and has bilateral expiratory wheezes on physical examination although he is saturating 97% on room air. He also has erythema to his right lower extremity with superficial ulcerations. There is gross hematuria with drainage into the Harris bag. Differential diagnosis includes but is not limited to: Reactive airway disease, pneumonia, UTI, urethral trauma secondary to Harris catheter, anemia, electrolyte abnormality, sepsis, dehydration, toxic/metabolic derangement, cellulitis. Plan: 1. Labs 2. EKG 3. Urine analysis 4. Chest x-ray 5. DuoNeb treatment 6. Observe and reevaluate 04/05/17 13:35 Addendum: Urine analysis shows +UTI. Will cover with Ceftriaxone for UTI and cellulitis but will add Vancomycin for MRSA coverage. Plan is to admit to inpatient for IV antibiotics. <Miriam Shah - Last Filed: 04/05/17 13:37> *DC/Admit/Observation/Transfer - Attestations Scribe Attestion: Documentation prepared by Shruti Cano, acting as medical secretary for Miriam Shah MD. <Shruti Cano - Last Filed: 04/05/17 11:22> - Discharge Dispostion Admit: Yes - Attestations Physician Attestion: 04/05/17 10:08 I, Dr. Miriam Shah, attest that the scribes documentation that appears above has been prepared under my direction and personally reviewed by me in its entirety. I confirmed that the note above accurately reflects all work, treatment, procedures, and medical decision-making performed by me. <Miriam Shah - Last Filed: 04/05/17 13:37> Diagnosis at time of Disposition: Gross hematuria, Cellulitis of leg, right - Discharge Dispostion Condition at time of disposition: Stable - Referrals Referrals: Cesario Montiel MD [Primary Care Provider] -
[2017-04-05 10:56] LABS: ANION GAP 8 (8-16); BILIRUBIN,TOTAL 0.2 mg/dL (0.2-1.0); CALCIUM 8.8 mg/dL (8.5-10.1); CO2 23 mmol/L (21-32); CREATININE 3.1 mg/dL (0.7-1.3); GLUCOSE,RANDOM 86 mg/dL (74-106); SGOT/AST 12 U/L (15-37); SGPT/ALT 29 U/L (12-78); TOT PROT 5.2 g/dl (6.4-8.2)
[2017-04-05 10:59] LABS: ALK PHOS 140 U/L (45-117); CPK 163 IU/L (39-308); TROPONIN I 0.03 ng/ml (0.00-0.05)
[2017-04-05 11:01] LABS: PH,URINE 6.5 (5.0-8.0); URINE APPEARANCE CLOUDY; URINE BILIRUBIN NEGATIVE (NEGATIVE); URINE BLOOD 3+ (NEGATIVE); URINE COLOR RED; URINE GLUCOSE (UA) NEGATIVE (NEGATIVE); URINE KETONE 1+ (NEGATIVE); URINE NITRITE POSITIVE (NEGATIVE); URINE PROTEIN 3+ (NEGATIVE)
[2017-04-05 11:02] LABS: URINE LEUK ESTERASE 2+ (NEGATIVE); URINE RBC >100 /hpf (0-3)
[2017-04-05 11:13] LABS: BASOPHIL 0.5 % (0-2.0); EOSINOPHIL 2.4 % (0-4.5); MCH 31.8 pg (25.7-33.7); MCHC 33.3 g/dl (32.0-35.9); MEAN CELL VOLUME 95.6 fl (80-96); MEAN PLT VOLUME 8.6 fl (7.5-11.1); NEUTROPHILS 85.8 % (42.8-82.8); PLATELET COUNT 223 K/MM3 (134-434); RDW 16.2 % (11.9-15.9); WHITE BLOOD COUNT 6.8 K/mm3 (4.0-10.0)
[2017-04-05] MEDS ORDERED: CEFTRIAXONE 1 GM in DEXTROSE 5%-WATER - 50 ML IVPB ONE (12:36)
[2017-04-05] MEDS ORDERED: CEFTRIAXONE 50 ML ONE (12:42)
[2017-04-05] MEDS ORDERED: VANCOMYCIN 1,000 MG in DEXTROSE 5%-WATER - 250 ML IVPB ONE (13:36)
[2017-04-05] MEDS ORDERED: VANCOMYCIN 1 GRAM (PRE-DOCKED) 250 ML IVPB ONE (13:51)
--- NOTE | 2017-04-05 14:40 | EKG ---
Test Reason : Blood Pressure : / mmHG Vent. Rate : 065 BPM Atrial Rate : 065 BPM P-R Int : 154 ms QRS Dur : 114 ms QT Int : 432 ms P-R-T Axes : 050 -47 070 degrees QTc Int : 449 ms NORMAL SINUS RHYTHM WITH SINUS ARRHYTHMIA LEFT ANTERIOR FASCICULAR BLOCK ABNORMAL ECG WHEN COMPARED WITH ECG OF 28-MAR-2017 18:48, NONSPECIFIC T WAVE ABNORMALITY NO LONGER EVIDENT IN ANTERIOR LEADS Confirmed by SUSANNAH NASH, NELLIE ([id number]) on 04/05/2017 2:39:59 PM Referred By: Confirmed By:NELLIE DAVALOS MD
--- NOTE | 2017-04-05 14:45 | HP ---
Admitting History and Physical - Primary Care Physician PCP: Cesario Montiel - Admission Chief Complaint: unable to obtain History of Present Illness: Mr Reynoso is an 86 year old man who was recently discharged after being treated for urinary retention and anemia presenting back to the hospital with hematuria. At the SNF he pulled on his seay and began to have bleeding, because of that he was brought in. Patient has history of dementia and I am unable to obtain any information as he only stares at me today. Of note this is a change from last admission where he was verbal. 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 duo bx neg) - Smoking History Smoking history: Unknown if ever smoked Have you smoked in the past 12 months: No Aproximately how many cigarettes per day: 15 If you are a former smoker, when did you quit?: does not remember - Alcohol/Substance Use Hx Alcohol Use: No - Social History Usual Living Arrangement: Yes: [facility] ADL: Support Services History of Recent Travel: No Home Medications - Allergies Allergies/Adverse Reactions: Allergies Allergy/AdvReac Type Severity Reaction Status Date / Time No Known Drug Allergies Allergy Verified 04/05/17 09:36 - Home Medications Home Medications: Ambulatory Orders Acetaminophen [Tylenol] 650 mg PO DAILY 04/05/17 Amlodipine Besylate 10 mg PO DAILY 04/05/17 Ascorbate Calcium [Vitamin C] 500 mg PO BID 04/05/17 Cilostazol 100 mg PO BID 04/05/17 Docusate Sodium [Colace -] 100 mg PO HS 04/05/17 Escitalopram Oxalate [Lexapro -] 20 mg PO DAILY 04/05/17 Ferrous Sulfate 325 mg PO BID 04/05/17 Furosemide [Lasix] 20 mg PO DAILY 04/05/17 Krill Oil/[place]-3/Dha/Epa [[place]-3 Krill Oil Softgel] 1 each PO DAILY 04/05/17 Metoprolol Succinate [Toprol Xl -] 25 mg PO DAILY 04/05/17 Multivitamin [One Daily] 1 each PO DAILY 04/05/17 Olanzapine 7.5 mg PO DAILY 04/05/17 Perphenazine [Trilafon] 0.5 mg PO DAILY 04/05/17 Petrolatum,White/Lanolin [Vitamin A & D Ointment] 454 gm TP BID 04/05/17 Ranitidine [Zantac -] 150 mg PO BID 04/05/17 Tamsulosin HCl [Flomax] 0.4 mg PO DAILY 04/05/17 Family Disease History - Family Disease History Family History: Unable to Obtain Review of Systems Unable to obtain ROS, reason: dementia Physical Examination Vital Signs: Vital Signs Temperature 34.4 C L 04/05/17 12:12 Pulse Rate 71 04/05/17 11:49 Respiratory Rate 22 04/05/17 11:49 Blood Pressure 134/49 04/05/17 11:49 O2 Sat by Pulse Oximetry (%) 94 L 04/05/17 11:49 Constitutional: Yes: Well Nourished, No Distress, Calm Eyes: Yes: Conjunctiva Clear, PERRL HENT: Yes: Atraumatic, Normocephalic Cardiovascular: Yes: Regular Rate and Rhythm. No: Gallop, Murmur, Rub Respiratory: Yes: Regular, CTA Bilaterally. No: Rales, Rhonchi, Wheezes Gastrointestinal: Yes: Normal Bowel Sounds, Soft. No: Distention, Tenderness Renal/: Yes: Seay Present, Hematuria Extremities: Yes: Erythema (RLE) Edema: No Labs: Laboratory Tests 04/05/17 04/05/17 04/05/17 10:14 10:14 10:16 WBC 6.8 RBC 2.58 L Hgb 8.2 L Hct 24.7 L MCV 95.6 MCH 31.8 MCHC 33.3 RDW 16.2 H Plt Count 223 MPV 8.6 Neutrophils % 85.8 H D Lymphocytes % 4.1 L D Monocytes % 7.2 Eosinophils % 2.4 Basophils % 0.5 Sodium Potassium Chloride Carbon Dioxide Anion Gap BUN Creatinine Creat Clearance w eGFR Random Glucose Lactic Acid 0.7 Calcium Phosphorus Magnesium Total Bilirubin AST ALT Alkaline Phosphatase Creatine Kinase Creatine Kinase Index CK-MB (CK-2) Troponin I Total Protein Albumin Urine Color Red Urine Appearance Cloudy Urine pH 6.5 Ur Specific Onward 1.015 Urine Protein 3+ H D Urine Glucose (UA) Negative Urine Ketones 1+ H Urine Blood 3+ H Urine Nitrite Positive Urine Bilirubin Negative Urine Urobilinogen 2.0 Ur Leukocyte Esterase 2+ H Urine RBC >100 04/05/17 04/06/17 04/06/17 10:16 06:00 06:00 WBC 5.3 RBC 2.53 L Hgb 8.2 L Hct 24.0 L MCV 94.9 MCH 32.2 MCHC 34.0 RDW 15.9 Plt Count 236 MPV 8.4 Neutrophils % 81.0 Lymphocytes % 6.0 L D Monocytes % 8.8 Eosinophils % 3.6 Basophils % 0.6 Sodium 148 H 149 H Potassium 3.9 3.9 Chloride 117 H 118 H Carbon Dioxide 23 20 L Anion Gap 8 11 BUN 71 H 62 H Creatinine 3.1 H 2.7 H Creat Clearance w eGFR 19.15 Random Glucose 86 89 Lactic Acid Calcium 8.8 8.5 Phosphorus 4.0 3.7 Magnesium 2.0 1.9 Total Bilirubin 0.2 D AST 12 L ALT 29 Alkaline Phosphatase 140 H Creatine Kinase 163 Creatine Kinase Index 4.1 CK-MB (CK-2) 6.685 H Troponin I 0.03 D Total Protein 5.2 L Albumin 3.0 L Urine Color Urine Appearance Urine pH Ur Specific Onward Urine Protein Urine Glucose (UA) Urine Ketones Urine Blood Urine Nitrite Urine Bilirubin Urine Urobilinogen Ur Leukocyte Esterase Urine RBC Imaging - Results Chest X-ray: Report Reviewed, Image Reviewed Assessment/Plan 1. Cellulitis -patient presents with cellulitis of RLE -change from previous admission -admit to hospital -received rocephin in the ED -will give dose of vancomycin -ID consult 2. UTI -urinalysis positive for UTI -continue rocephin -follow up cultures 3. Hematuria -traumatic -urology consult -monitor, may clear without intervention 4. Metabolic encephalopathy -secondary to infection -hydration -antibiotics as above 5. DAVID on CKD -hold lasix -gentle hydration -consult nephrology 6. Dementia -continue home regimen 7. BPH -continue flomax -seay in place -urology consult
[2017-04-05] MEDS ORDERED: ONDANSETRON 4 MG/2 ML VIAL IVPB PRN (14:46)
[2017-04-05] MEDS ORDERED: SODIUM CHLORIDE 1,000 ML IV SCH (15:00)
--- NOTE | 2017-04-05 16:12 | PN ---
Progress Note (short form) - Note Progress Note: Renal Follow up for SUZI/CKD 86 year old Gentleman with PMhx of CKD (baseline 2.1-2.6), CHF, Anemia, GIB, Hyperlipidemia s/p recent admission for acute on chronic anemia who was readmitted from [place] with gross hematuria s/p attempting to remove the harris. Pt has no acute complaints at this time and is confused and unable to provide any further history. Harris bag with gross hematuria. Vital Signs Temperature 94.0 F L 04/05/17 12:12 Pulse Rate 71 04/05/17 11:49 Respiratory Rate 22 04/05/17 11:49 Blood Pressure 134/49 04/05/17 11:49 O2 Sat by Pulse Oximetry (%) 94 L 04/05/17 11:49 Intake & Output 04/02/17 04/03/17 04/04/17 04/05/17 23:59 23:59 23:59 23:59 Output Total 300 Balance -300 Weight 177 lb Gen: NAD, awake and alert CVS: RRR, No M/R Lungs: CTA Abd: soft NT/ND Ext: No edema, clubbing or cyanosis Gu: No bladder distension, harris in place CBC, BMP 04/05/17 10:16 04/05/17 10:16 Laboratory Tests 04/05/17 04/05/17 10:14 10:16 Calcium 8.8 Phosphorus 4.0 Magnesium 2.0 Albumin 3.0 L Urine Protein 3+ H D Urine Ketones 1+ H Urine Blood 3+ H Ur Leukocyte Esterase 2+ H Urine RBC >100 Current Medications Acetaminophen (Tylenol -) 650 mg PO Q4H PRN PRN Reason: FEVER OR PAIN Amlodipine Besylate (Norvasc -) 10 mg PO DAILY [facility] Ascorbic Acid (Vitamin C -) 500 mg PO BID [facility]IN[facility] Cilostazol (Pletal -) 100 mg PO BID [facility] Escitalopram Oxalate (Lexapro -) 20 mg PO DAILY [facility] Ferrous Sulfate (Feosol -) 325 mg PO BID [facility] Heparin Sodium (Porcine) (Heparin -) 5,000 unit SQ Q8H-IV [facility] Sodium Chloride (Normal Saline -) 1,000 mls @ 42 mls/hr IV ASDIR [facility]INTHYA Stop: 04/06/17 14:49 Metoprolol Succinate (Toprol Xl -) 25 mg PO DAILY [facility] Multivitamins/Minerals/Vitamin C (Tab-A-Vit -) 1 tab PO DAILY [facility] Non-Formulary Medication (Krill Oil/[place]-3/Dha/Epa [[place]-3 Krill Oil Softgel] ) 1 each PO DAILY [facility] Olanzapine (Zyprexa -) 7.5 mg PO DAILY [facility] Ondansetron HCl (Zofran Injection) 4 mg IVPB Q6H PRN PRN Reason: NAUSEA Perphenazine (Trilafon) 0.5 mg PO DAILY [facility] Ranitidine HCl (Zantac -) 150 mg PO BID [facility] Tamsulosin HCl (Flomax -) 0.4 mg PO DAILY@0830 [facility] Vitamin A/Vitamin D (Vitamin A & D Top Oint -) 454 applic TP BID [facility]IN[facility] A/P 86 year old Gentleman with PMhx of CKD (baseline 2.1-2.6), CHF, Anemia, GIB, Hyperlipidemia s/p recent admission for acute on chronic anemia who was readmitted from [place] with gross hematuria #Tramatic Hematuria Trend CBC, and monitor urine output maintain harris if Hematuria not resolving may need CBI/urolgoy evalulation #SUZI on CKD Cr the same as on discharge hold diuretics for now #Urinary retention continue Harris continue Flomax #Hypertension Continue amlodipine no DIPTI/ARB at this time Thank you Will follow Teja Mercedes DO
--- NOTE | 2017-04-05 17:16 | CONSULT ---
Consult Consult Specialty:: infectious diseases Reason for Consultation:: cellulitits of the rt leg,cough,uti - History of Present Illness Chief Complaint: cough History of Present Illness: 86 yo M with a past medical history significant for BPH with urinary retention , HTN, CHF, depression and schizophrenia, chronic kidney disease and anemia who presents from [facility] with hematuria s/p attempting to remove harris catheter. and cough. 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 duo bx neg) - Alcohol/Substance Use Hx Alcohol Use: No - Smoking History Smoking history: Unknown if ever smoked Have you smoked in the past 12 months: No Aproximately how many cigarettes per day: 15 If you are a former smoker, when did you quit?: does not remember - Social History Usual Living Arrangement: Alone ADL: Support Services History of Recent Travel: No Home Medications - Allergies Allergies/Adverse Reactions: Allergies Allergy/AdvReac Type Severity Reaction Status Date / Time No Known Drug Allergies Allergy Verified 04/05/17 09:36 - Home Medications Home Medications: Ambulatory Orders Acetaminophen [Tylenol] 650 mg PO DAILY 04/05/17 Amlodipine Besylate 10 mg PO DAILY 04/05/17 Ascorbate Calcium [Vitamin C] 500 mg PO BID 04/05/17 Cilostazol 100 mg PO BID 04/05/17 Docusate Sodium [Colace -] 100 mg PO HS 04/05/17 Escitalopram Oxalate [Lexapro -] 20 mg PO DAILY 04/05/17 Ferrous Sulfate 325 mg PO BID 04/05/17 Furosemide [Lasix] 20 mg PO DAILY 04/05/17 Krill Oil/[place]-3/Dha/Epa [[place]-3 Krill Oil Softgel] 1 each PO DAILY 04/05/17 Metoprolol Succinate [Toprol Xl -] 25 mg PO DAILY 04/05/17 Multivitamin [One Daily] 1 each PO DAILY 04/05/17 Olanzapine 7.5 mg PO DAILY 04/05/17 Perphenazine [Trilafon] 0.5 mg PO DAILY 04/05/17 Petrolatum,White/Lanolin [Vitamin A & D Ointment] 454 gm TP BID 04/05/17 Ranitidine [Zantac -] 150 mg PO BID 04/05/17 Tamsulosin HCl [Flomax] 0.4 mg PO DAILY 04/05/17 Review of Systems - Review of Systems Constitutional: reports: No Symptoms Eyes: reports: No Symptoms HENT: reports: No Symptoms Neck: reports: No Symptoms Cardiovascular: reports: No Symptoms Respiratory: reports: Cough Gastrointestinal: reports: No Symptoms Genitourinary: reports: Hematuria Musculoskeletal: reports: Other Integumentary: reports: Change in Color, Erythema Neurological: reports: No Symptoms Endocrine: reports: No Symptoms Hematology/Lymphatic: reports: No Symptoms Psychiatric: reports: No Symptoms Physical Exam Vital Signs: Vital Signs Temperature 94.0 F L 04/05/17 12:12 Pulse Rate 71 04/05/17 11:49 Respiratory Rate 22 04/05/17 11:49 Blood Pressure 134/49 04/05/17 11:49 O2 Sat by Pulse Oximetry (%) 94 L 04/05/17 11:49 Constitutional: Yes: No Distress, Calm Eyes: Yes: Conjunctiva Clear Cardiovascular: Yes: S1, S2 Respiratory: Yes: Regular, On Nasal O2, Rhonchi Gastrointestinal: Yes: Normal Bowel Sounds, Soft Renal/: Yes: Harris Present Musculoskeletal: Yes: Other Extremities: Yes: Erythema (rt leg) Integumentary: Yes: Erythema Neurological: Yes: Alert Psychiatric: Yes: Alert Imaging - Results Chest X-ray: Report Reviewed, Image Reviewed Assessment/Plan patient has couple of tings going on i suspect he has uti and also cellulitis of the rt leg,he does have clinical findings in the lungs but the xray chest is clear uti hematuria cough cellulitis of the rt leg arf plan will start on ceftriaxone continue current mgmt rest as per primary nephro on case
[2017-04-05] MEDS: HEPARIN NA (PORCINE) 5,000 UNITS/ML 1ML VIAL SQ SCH (17:19)
[2017-04-05 18:18] VITALS: BMI 27.4
[2017-04-05] MEDS: FERROUS SO4 325 MG TABLET (FP) PO SCH (21:18)
[2017-04-05] MEDS: RANITIDINE HCL 150 MG TABLET (FP) PO SCH (21:18)
[2017-04-05] MEDS: ASCORBIC ACID 500 MG TABLET (FP) PO SCH (21:18)
[2017-04-05] MEDS: CILOSTAZOL 100 MG TABLET PO SCH (21:21)
[2017-04-05] MEDS: VITAMINS A AND D TOPICAL OINTMENT 60 GM TUBE TP SCH (21:23)
[2017-04-05] MEDS ORDERED: PT OWN MED DRAWER 7, Y5N ONE (21:37)
[2017-04-06] MEDS: HEPARIN NA (PORCINE) 5,000 UNITS/ML 1ML VIAL SQ SCH ×3 (01:38→18:02)
[2017-04-06] MEDS ORDERED: PT OWN MED DRAWER 7, Y5N ONE ×3 (07:23→17:59)
[2017-04-06 08:13] LABS: BASOPHIL 0.6 % (0-2.0); EOSINOPHIL 3.6 % (0-4.5); MCH 32.2 pg (25.7-33.7); MEAN CELL VOLUME 94.9 fl (80-96); MEAN PLT VOLUME 8.4 fl (7.5-11.1); PLATELET COUNT 236 K/MM3 (134-434); RDW 15.9 % (11.9-15.9); WHITE BLOOD COUNT 5.3 K/mm3 (4.0-10.0)
[2017-04-06 08:32] LABS: ANION GAP 11 (8-16); CALCIUM 8.5 mg/dL (8.5-10.1); CO2 20 mmol/L (21-32); CREATININE 2.7 mg/dL (0.7-1.3); GLUCOSE,RANDOM 89 mg/dL (74-106); MAGNESIUM 1.9 mg/dL (1.8-2.4); PHOSPHOROUS 3.7 mg/dL (2.5-4.9)
[2017-04-06] MEDS ORDERED: DEXTROSE 5%-WATER - 50 ML IVPB ONE (09:41)
[2017-04-06] MEDS ORDERED: cefTRIAXone SODIUM 1 GM VIAL ONE (09:41)
[2017-04-06] MEDS: amLODIPine BESYLATE 10 MG TABLET (FP) PO SCH (09:48)
[2017-04-06] MEDS: ESCITALOPRAM OXALATE 20 MG TABLET (FP) PO SCH (09:48)
[2017-04-06] MEDS: ASCORBIC ACID 500 MG TABLET (FP) PO SCH ×2 (09:48→21:12)
[2017-04-06] MEDS: MULTIVITAMINS (DAILY MVI) TABLET (FP) PO SCH (09:48)
[2017-04-06] MEDS: RANITIDINE HCL 150 MG TABLET (FP) PO SCH ×2 (09:48→21:12)
[2017-04-06] MEDS: FERROUS SO4 325 MG TABLET (FP) PO SCH ×2 (09:49→21:12)
[2017-04-06] MEDS: METOPROLOL SUCCINATE 25 MG TAB.SR.24H (FP) PO SCH (09:49)
[2017-04-06] MEDS: CILOSTAZOL 100 MG TABLET PO SCH ×2 (09:49→21:13)
[2017-04-06] MEDS: CEFTRIAXONE 1 GM in DEXTROSE 5%-WATER - 50 ML IVPB SCH (09:49)
[2017-04-06] MEDS: VITAMINS A AND D TOPICAL OINTMENT 60 GM TUBE TP SCH ×4 (09:49→21:13)
[2017-04-06] MEDS: TAMSULOSIN HCL 0.4 MG CAP.ER.24H (FP) PO SCH (09:49)
[2017-04-06] MEDS ORDERED: DHA PO SCH (10:00)
[2017-04-06] MEDS ORDERED: OMEGA PO SCH (10:00)
[2017-04-06] MEDS ORDERED: KRILL OIL PO SCH (10:00)
[2017-04-06] MEDS ORDERED: [UNRECOGNIZED DRUG - OTHER] PO SCH (10:00)
[2017-04-06] MEDS ORDERED: EPA PO SCH (10:00)
[2017-04-06] MEDS ORDERED: OLANZapine 7.5 MG TABLET PO SCH (10:00)
[2017-04-06] MEDS: OLANZAPINE 2.5 MG, OLANZAPINE 5 MG PO SCH (11:44)
[2017-04-06] MEDS: SODIUM BICARBONATE 650 MG TABLET PO SCH ×2 (11:44→21:14)
--- NOTE | 2017-04-06 13:07 | PN ---
Progress Note, Physician History of Present Illness: much more awake and alert says he feels much better emma clear - Current Medication List Current Medications: Active Medications Acetaminophen (Tylenol -) 650 mg PO Q4H PRN PRN Reason: FEVER OR PAIN Amlodipine Besylate (Norvasc -) 10 mg PO DAILY [facility] Last Admin: 04/06/17 09:48 Dose: 10 mg Ascorbic Acid (Vitamin C -) 500 mg PO BID [facility] Last Admin: 04/06/17 09:48 Dose: 500 mg Cilostazol (Pletal -) 100 mg PO BID [facility] Last Admin: 04/06/17 09:49 Dose: 100 mg Clindamycin HCl (Cleocin -) 300 mg PO Q6HPO [facility] Escitalopram Oxalate (Lexapro -) 20 mg PO DAILY [facility] Last Admin: 04/06/17 09:48 Dose: 20 mg Ferrous Sulfate (Feosol -) 325 mg PO BID [facility] Last Admin: 04/06/17 09:49 Dose: 325 mg Heparin Sodium (Porcine) (Heparin -) 5,000 unit SQ Q8H-IV [facility] Last Admin: 04/06/17 09:49 Dose: 5,000 unit Sodium Chloride (Normal Saline -) 1,000 mls @ 42 mls/hr IV ASDIR CINTHYA Stop: 04/06/17 14:49 Last Admin: 04/05/17 17:19 Dose: 42 mls/hr Ceftriaxone Sodium 1 gm/ (Dextrose) 50 mls @ 100 mls/hr IVPB DAILY [facility] Last Admin: 04/06/17 09:49 Dose: 100 mls/hr Metoprolol Succinate (Toprol Xl -) 25 mg PO DAILY [facility] Last Admin: 04/06/17 09:49 Dose: 25 mg Multivitamins/Minerals/Vitamin C (Tab-A-Vit -) 1 tab PO DAILY [facility] Last Admin: 04/06/17 09:48 Dose: 1 tab Non-Formulary Medication (Krill Oil/[place]-3/Dha/Epa [[place]-3 Krill Oil Softgel] ) 1 each PO DAILY [facility] Nystatin (Mycostatin Cream -) 1 applic TP BID [facility] Olanzapine 2.5 mg/ Olanzapine (5 mg) 7.5 mg PO DAILY [facility] Last Admin: 04/06/17 11:44 Dose: 7.5 mg Ondansetron HCl (Zofran Injection) 4 mg IVPB Q6H PRN PRN Reason: NAUSEA Perphenazine (Trilafon) 0.5 mg PO DAILY [facility] Ranitidine HCl (Zantac -) 150 mg PO BID [facility] Last Admin: 04/06/17 09:48 Dose: 150 mg Sodium Bicarbonate (Sodium Bicarbonate -) 650 mg PO BID [facility] Last Admin: 04/06/17 11:44 Dose: 650 mg Tamsulosin HCl (Flomax -) 0.4 mg PO DAILY@0830 [facility] Last Admin: 04/06/17 09:49 Dose: 0.4 mg Vitamin A/Vitamin D (Vitamin A & D Top Oint -) 1 applic TP BID [facility] Last Admin: 04/06/17 09:59 Dose: 1 applic - Objective Vital Signs: Vital Signs Temperature 98.3 F 04/06/17 06:00 Pulse Rate 66 04/06/17 06:00 Respiratory Rate 18 04/06/17 06:00 Blood Pressure 127/86 04/06/17 06:00 O2 Sat by Pulse Oximetry (%) 98 04/05/17 21:00 Constitutional: Yes: No Distress, Calm Cardiovascular: Yes: Regular Rate and Rhythm Respiratory: Yes: Regular, CTA Bilaterally Gastrointestinal: Yes: Normal Bowel Sounds, Soft Extremities: Yes: Other (r) Neurological: Yes: Alert Psychiatric: Yes: Alert Labs: CBC, BMP 04/06/17 06:00 04/06/17 06:00 Assessment/Plan uti hematuria cough cellulitis of the rt leg arf plan continue ceftriaxone will add doxy rest as per primary
--- NOTE | 2017-04-06 15:01 | PN ---
Progress Note, Physician Chief Complaint: Mr Reynoso says he feels ok today. Denies cp, sob, n/v, pain in leg - Current Medication List Current Medications: Active Medications Acetaminophen (Tylenol -) 650 mg PO Q4H PRN PRN Reason: FEVER OR PAIN Amlodipine Besylate (Norvasc -) 10 mg PO DAILY [facility] Last Admin: 04/06/17 09:48 Dose: 10 mg Ascorbic Acid (Vitamin C -) 500 mg PO BID [facility] Last Admin: 04/06/17 09:48 Dose: 500 mg Cilostazol (Pletal -) 100 mg PO BID [facility] Last Admin: 04/06/17 09:49 Dose: 100 mg Clindamycin HCl (Cleocin -) 300 mg PO Q6HPO [facility] Escitalopram Oxalate (Lexapro -) 20 mg PO DAILY [facility] Last Admin: 04/06/17 09:48 Dose: 20 mg Ferrous Sulfate (Feosol -) 325 mg PO BID [facility] Last Admin: 04/06/17 09:49 Dose: 325 mg Heparin Sodium (Porcine) (Heparin -) 5,000 unit SQ Q8H-IV [facility] Last Admin: 04/06/17 09:49 Dose: 5,000 unit Ceftriaxone Sodium 1 gm/ (Dextrose) 50 mls @ 100 mls/hr IVPB DAILY [facility] Last Admin: 04/06/17 09:49 Dose: 100 mls/hr Metoprolol Succinate (Toprol Xl -) 25 mg PO DAILY [facility] Last Admin: 04/06/17 09:49 Dose: 25 mg Multivitamins/Minerals/Vitamin C (Tab-A-Vit -) 1 tab PO DAILY [facility] Last Admin: 04/06/17 09:48 Dose: 1 tab Non-Formulary Medication (Krill Oil/[place]-3/Dha/Epa [[place]-3 Krill Oil Softgel] ) 1 each PO DAILY [facility] Nystatin (Mycostatin Cream -) 1 applic TP BID [facility] Olanzapine 2.5 mg/ Olanzapine (5 mg) 7.5 mg PO DAILY [facility] Last Admin: 04/06/17 11:44 Dose: 7.5 mg Ondansetron HCl (Zofran Injection) 4 mg IVPB Q6H PRN PRN Reason: NAUSEA Perphenazine (Trilafon) 0.5 mg PO DAILY [facility] Ranitidine HCl (Zantac -) 150 mg PO BID [facility] Last Admin: 04/06/17 09:48 Dose: 150 mg Sodium Bicarbonate (Sodium Bicarbonate -) 650 mg PO BID [facility] Last Admin: 04/06/17 11:44 Dose: 650 mg Tamsulosin HCl (Flomax -) 0.4 mg PO DAILY@0830 [facility] Last Admin: 04/06/17 09:49 Dose: 0.4 mg Vitamin A/Vitamin D (Vitamin A & D Top Oint -) 1 applic TP BID [facility] Last Admin: 04/06/17 09:59 Dose: 1 applic - Objective Vital Signs: Vital Signs Temperature 36.8 C 04/06/17 06:00 Pulse Rate 66 04/06/17 06:00 Respiratory Rate 18 04/06/17 06:00 Blood Pressure 127/86 04/06/17 06:00 O2 Sat by Pulse Oximetry (%) 98 04/05/17 21:00 Constitutional: Yes: Well Nourished, No Distress, Calm Cardiovascular: Yes: Regular Rate and Rhythm. No: Gallop, Murmur, Rub Respiratory: Yes: Regular, CTA Bilaterally. No: Rales, Rhonchi, Wheezes Gastrointestinal: Yes: Normal Bowel Sounds, Soft. No: Distention, Tenderness Extremities: Yes: Erythema Edema: No Labs: CBC, BMP 04/06/17 06:00 04/06/17 06:00 Assessment/Plan 1. Cellulitis -case d/w Dr Wylie -continue rocephin -clindamycin added 2. UTI -urinalysis positive for UTI -continue rocephin day 2 -follow up cultures 3. Hematuria -traumatic -urology consult -much clearer today 4. Metabolic encephalopathy -improving -continue antibiotics 5. DAVID on CKD -appreciate nephrology assistance -continue general hydration 6. Dementia -continue home regimen 7. BPH -continue flomax -harris in place -urology consulted
[2017-04-06] MEDS: CLINDAMYCIN HCL 150 MG CAPSULE (FP) PO SCH (17:59)
[2017-04-06] MEDS: PERPHENAZINE 2 MG TABLET PO SCH (18:00)
[2017-04-06] MEDS: NYSTATIN 100,000 UNIT/GM TOPICAL CREAM 15 GM TUBE TP SCH ×2 (18:00→21:13)
[2017-04-07] MEDS: HEPARIN NA (PORCINE) 5,000 UNITS/ML 1ML VIAL SQ SCH ×3 (06:00→18:44)
[2017-04-07] MEDS: CLINDAMYCIN HCL 150 MG CAPSULE (FP) PO SCH ×4 (06:56→18:44)
[2017-04-07 07:58] LABS: BASOPHIL 0.8 % (0-2.0); EOSINOPHIL 2.2 % (0-4.5); MCH 31.7 pg (25.7-33.7); MCHC 33.5 g/dl (32.0-35.9); MEAN CELL VOLUME 94.8 fl (80-96); MEAN PLT VOLUME 8.6 fl (7.5-11.1); NEUTROPHILS 83.6 % (42.8-82.8); PLATELET COUNT 224 K/MM3 (134-434); RDW 15.8 % (11.9-15.9); WHITE BLOOD COUNT 5.8 K/mm3 (4.0-10.0)
[2017-04-07 08:42] LABS: ALBUMIN 2.9 g/dl (3.4-5.0); CALCIUM 8.5 mg/dL (8.5-10.1); GLUCOSE,RANDOM 79 mg/dL (74-106); MAGNESIUM 1.9 mg/dL (1.8-2.4); PHOSPHOROUS 2.9 mg/dL (2.5-4.9)
[2017-04-07] MEDS: TAMSULOSIN HCL 0.4 MG CAP.ER.24H (FP) PO SCH (08:42)
[2017-04-07 08:44] LABS: ALK PHOS 151 U/L (45-117); ANION GAP 10 (8-16); BILIRUBIN,TOTAL 0.3 mg/dL (0.2-1.0); CO2 21 mmol/L (21-32); CREATININE 2.5 mg/dL (0.7-1.3); SGOT/AST 14 U/L (15-37); SGPT/ALT 27 U/L (12-78)
--- NOTE | 2017-04-07 08:53 | PN ---
Progress Note (short form) - Note Progress Note: Patient seen and examined. Chart reviewed. Currently sitting up in bed, lethargic but responsive and appropriate. Denies new chest discomfort or bladder discomfort. Labs, radiologic testing and progress notes/consultations reviewed. Selected Entries 04/06/17 04/07/17 21:00 06:53 Temperature 97.9 F Pulse Rate 102 H Respiratory 20 Rate Blood Pressure 150/57 O2 Sat by Pulse 98 Oximetry (%) Oxygen Delivery Room Air Method Laboratory Tests 04/05/17 04/06/17 04/07/17 10:16 06:00 06:30 WBC 5.8 Hgb 7.5 L Hct 22.5 L Plt Count 224 Sodium 149 H Potassium 3.9 Chloride 118 H Carbon Dioxide 20 L BUN 62 H Creatinine 2.7 H Random Glucose 89 Calcium 8.5 Phosphorus 3.7 Magnesium 1.9 Albumin 3.0 L Today's CMP pending Chest Lungs clear with evidence of mild upper airway congestion with expiratory wheeze Cor RRR Abd Soft Mildly distended Non-tender No mass F/C in place with gross hematuria Ext Mild swelling with erythema RLE with open areas Neuro No new focal deficit Assessment and Plan Cellulitis On Rx as per ID UTI Group D strep Await formal sensitivities Clinda added to cephalosporin Anemia 7.5/22.5 Multifactorial Blood loss and likely chronic disease related to CRI Check ferrokinetics if not previously performed CRI Acute on chronic BUN/Cr 62/2.7 Hypoalbuminemia 3.0 Likely related to both acute/chronic disease as well as nutritional factors Metabolic encephalopathy Possible underlying Dementia according to notes Observe BPH F/C in place HPL Stable HTN Stable Continue current Rx
[2017-04-07] MEDS ORDERED: DEXTROSE 5%-WATER - 50 ML IVPB ONE (09:18)
[2017-04-07] MEDS ORDERED: PT OWN MED DRAWER 7, Y5N ONE (09:18)
[2017-04-07] MEDS ORDERED: cefTRIAXone SODIUM 1 GM VIAL ONE (09:18)
[2017-04-07] MEDS: FERROUS SO4 325 MG TABLET (FP) PO SCH ×2 (09:27→23:02)
[2017-04-07] MEDS: ASCORBIC ACID 500 MG TABLET (FP) PO SCH ×2 (09:27→23:03)
[2017-04-07] MEDS: RANITIDINE HCL 150 MG TABLET (FP) PO SCH ×2 (09:27→23:03)
[2017-04-07] MEDS: ESCITALOPRAM OXALATE 20 MG TABLET (FP) PO SCH (09:27)
[2017-04-07] MEDS: MULTIVITAMINS (DAILY MVI) TABLET (FP) PO SCH (09:27)
[2017-04-07] MEDS: SODIUM BICARBONATE 650 MG TABLET PO SCH ×2 (09:27→23:02)
[2017-04-07] MEDS: METOPROLOL SUCCINATE 25 MG TAB.SR.24H (FP) PO SCH (09:27)
[2017-04-07] MEDS: amLODIPine BESYLATE 10 MG TABLET (FP) PO SCH (09:27)
[2017-04-07] MEDS: CEFTRIAXONE 1 GM in DEXTROSE 5%-WATER - 50 ML IVPB SCH (09:27)
[2017-04-07] MEDS: OLANZAPINE 2.5 MG, OLANZAPINE 5 MG PO SCH (09:28)
[2017-04-07] MEDS: CILOSTAZOL 100 MG TABLET PO SCH ×2 (09:29→23:02)
[2017-04-07] MEDS: PERPHENAZINE 2 MG TABLET PO SCH (09:29)
--- NOTE | 2017-04-07 11:39 | PN ---
Progress Note (short form) - Note Progress Note: Renal Follow up for SUZI/CKD pt seen and examined in the hallway no acute complains concerned about being called for jury duty Vital Signs Temperature 97.9 F 04/07/17 06:53 Pulse Rate 102 H 04/07/17 06:53 Respiratory Rate 20 04/07/17 06:53 Blood Pressure 150/57 04/07/17 06:53 O2 Sat by Pulse Oximetry (%) 98 04/06/17 21:00 Intake & Output 04/04/17 04/05/17 04/06/17 04/07/17 23:59 23:59 23:59 23:59 Intake Total 232 1694 562 Output Total 600 2000 200 Balance -368 -306 362 Weight 170 lb Gen: NAD, awake and alert CVS: RRR, No M/R Lungs: CTA Abd: soft NT/ND Ext: No edema, clubbing or cyanosis Gu: No bladder distension, harris in place CBC, BMP 04/07/17 06:30 04/07/17 06:30 Current Medications Acetaminophen (Tylenol -) 650 mg PO Q4H PRN PRN Reason: FEVER OR PAIN Amlodipine Besylate (Norvasc -) 10 mg PO DAILY [facility] Last Admin: 04/07/17 09:27 Dose: 10 mg Ascorbic Acid (Vitamin C -) 500 mg PO BID [facility] Last Admin: 04/07/17 09:27 Dose: 500 mg Cilostazol (Pletal -) 100 mg PO BID [facility] Last Admin: 04/07/17 09:29 Dose: 100 mg Clindamycin HCl (Cleocin -) 300 mg PO Q6HPO [facility] Last Admin: 04/07/17 06:56 Dose: 300 mg Escitalopram Oxalate (Lexapro -) 20 mg PO DAILY [facility] Last Admin: 04/07/17 09:27 Dose: 20 mg Ferrous Sulfate (Feosol -) 325 mg PO BID [facility] Last Admin: 04/07/17 09:27 Dose: 325 mg Heparin Sodium (Porcine) (Heparin -) 5,000 unit SQ Q8H-IV [facility] Last Admin: 04/07/17 11:34 Dose: Not Given Ceftriaxone Sodium 1 gm/ (Dextrose) 50 mls @ 100 mls/hr IVPB DAILY [facility] Last Admin: 04/07/17 09:27 Dose: 100 mls/hr Metoprolol Succinate (Toprol Xl -) 25 mg PO DAILY [facility] Last Admin: 04/07/17 09:27 Dose: 25 mg Multivitamins/Minerals/Vitamin C (Tab-A-Vit -) 1 tab PO DAILY [facility] Last Admin: 04/07/17 09:27 Dose: 1 tab Nystatin (Mycostatin Cream -) 1 applic TP BID [facility] Last Admin: 04/06/17 21:13 Dose: 1 applic Olanzapine 2.5 mg/ Olanzapine (5 mg) 7.5 mg PO DAILY [facility] Last Admin: 04/07/17 09:28 Dose: 7.5 mg Ondansetron HCl (Zofran Injection) 4 mg IVPB Q6H PRN PRN Reason: NAUSEA Perphenazine (Trilafon) 0.5 mg PO DAILY [facility] Last Admin: 04/07/17 09:29 Dose: 0.5 mg Ranitidine HCl (Zantac -) 150 mg PO BID [facility] Last Admin: 04/07/17 09:27 Dose: 150 mg Sodium Bicarbonate (Sodium Bicarbonate -) 650 mg PO BID [facility] Last Admin: 04/07/17 09:27 Dose: 650 mg Tamsulosin HCl (Flomax -) 0.4 mg PO DAILY@0830 [facility] Last Admin: 04/07/17 08:42 Dose: 0.4 mg Vitamin A/Vitamin D (Vitamin A & D Top Oint -) 1 applic TP BID [facility] Last Admin: 04/06/17 21:13 Dose: 1 applic A/P 86 year old Gentleman with PMhx of CKD (baseline 2.1-2.6), CHF, Anemia, GIB, Hyperlipidemia s/p recent admission for acute on chronic anemia who [place] with gross hematuria #Tramatic Hematuria urine clearing up maintain hraris #SUZI on CKD Cr improved hold IVF because of some congestion on lung exam #Urinary retention continue Harris continue Flomax #Hypertension Continue amlodipine no DIPTI/ARB at this time #Anemia Trend CBC, transfuse for Hgb less then 7 Thank you Will follow Teja Mercedes DO
--- NOTE | 2017-04-07 12:26 | PN ---
Progress Note, Physician History of Present Illness: much more awake and alert says he feels much better foleys clear sitting in the chair eating food confusion still exists - Current Medication List Current Medications: Active Medications Acetaminophen (Tylenol -) 650 mg PO Q4H PRN PRN Reason: FEVER OR PAIN Amlodipine Besylate (Norvasc -) 10 mg PO DAILY [facility] Last Admin: 04/07/17 09:27 Dose: 10 mg Ascorbic Acid (Vitamin C -) 500 mg PO BID [facility] Last Admin: 04/07/17 09:27 Dose: 500 mg Cilostazol (Pletal -) 100 mg PO BID [facility] Last Admin: 04/07/17 09:29 Dose: 100 mg Clindamycin HCl (Cleocin -) 300 mg PO Q6HPO [facility] Last Admin: 04/07/17 06:56 Dose: 300 mg Escitalopram Oxalate (Lexapro -) 20 mg PO DAILY [facility] Last Admin: 04/07/17 09:27 Dose: 20 mg Ferrous Sulfate (Feosol -) 325 mg PO BID [facility] Last Admin: 04/07/17 09:27 Dose: 325 mg Heparin Sodium (Porcine) (Heparin -) 5,000 unit SQ Q8H-IV [facility] Last Admin: 04/07/17 11:34 Dose: Not Given Ceftriaxone Sodium 1 gm/ (Dextrose) 50 mls @ 100 mls/hr IVPB DAILY [facility] Last Admin: 04/07/17 09:27 Dose: 100 mls/hr Metoprolol Succinate (Toprol Xl -) 25 mg PO DAILY [facility] Last Admin: 04/07/17 09:27 Dose: 25 mg Multivitamins/Minerals/Vitamin C (Tab-A-Vit -) 1 tab PO DAILY [facility] Last Admin: 04/07/17 09:27 Dose: 1 tab Nystatin (Mycostatin Cream -) 1 applic TP BID [facility] Last Admin: 04/06/17 21:13 Dose: 1 applic Olanzapine 2.5 mg/ Olanzapine (5 mg) 7.5 mg PO DAILY [facility] Last Admin: 04/07/17 09:28 Dose: 7.5 mg Ondansetron HCl (Zofran Injection) 4 mg IVPB Q6H PRN PRN Reason: NAUSEA Perphenazine (Trilafon) 0.5 mg PO DAILY [facility] Last Admin: 04/07/17 09:29 Dose: 0.5 mg Ranitidine HCl (Zantac -) 150 mg PO BID [facility] Last Admin: 04/07/17 09:27 Dose: 150 mg Sodium Bicarbonate (Sodium Bicarbonate -) 650 mg PO BID [facility] Last Admin: 04/07/17 09:27 Dose: 650 mg Tamsulosin HCl (Flomax -) 0.4 mg PO DAILY@0830 [facility] Last Admin: 04/07/17 08:42 Dose: 0.4 mg Vitamin A/Vitamin D (Vitamin A & D Top Oint -) 1 applic TP BID [facility] Last Admin: 04/06/17 21:13 Dose: 1 applic - Objective Vital Signs: Vital Signs Temperature 97.9 F 04/07/17 06:53 Pulse Rate 102 H 04/07/17 06:53 Respiratory Rate 20 04/07/17 06:53 Blood Pressure 150/57 04/07/17 06:53 O2 Sat by Pulse Oximetry (%) 98 04/07/17 09:00 Constitutional: Yes: No Distress, Calm Cardiovascular: Yes: Regular Rate and Rhythm Respiratory: Yes: Regular, On Nasal O2 Gastrointestinal: Yes: Normal Bowel Sounds, Soft Genitourinary: Yes: Se[place] Present Neurological: Yes: Alert, Other Psychiatric: Yes: Alert Labs: CBC, BMP 04/07/17 06:30 04/07/17 06:30 Assessment/Plan uti hematuria cough cellulitis of the rt leg arf plan continue current mgmt rest as per primary
[2017-04-07] MEDS: VITAMINS A AND D TOPICAL OINTMENT 60 GM TUBE TP SCH ×2 (13:49→23:03)
[2017-04-07] MEDS: NYSTATIN 100,000 UNIT/GM TOPICAL CREAM 15 GM TUBE TP SCH ×2 (13:49→23:03)
[2017-04-08] MEDS: HEPARIN NA (PORCINE) 5,000 UNITS/ML 1ML VIAL SQ SCH ×3 (02:00→17:35)
[2017-04-08] MEDS: CLINDAMYCIN HCL 150 MG CAPSULE (FP) PO SCH ×4 (06:50→17:35)
[2017-04-08 07:38] LABS: BASOPHIL 0.4 % (0-2.0); MCH 31.8 pg (25.7-33.7); MCHC 33.4 g/dl (32.0-35.9); MEAN PLT VOLUME 8.8 fl (7.5-11.1); NEUTROPHILS 81.1 % (42.8-82.8); PLATELET COUNT 235 K/MM3 (134-434); RDW 15.5 % (11.9-15.9); WHITE BLOOD COUNT 8.1 K/mm3 (4.0-10.0)
[2017-04-08 08:20] LABS: ANION GAP 9 (8-16); CALCIUM 8.7 mg/dL (8.5-10.1); CO2 23 mmol/L (21-32); GLUCOSE,RANDOM 93 mg/dL (74-106)
[2017-04-08 08:22] LABS: ALK PHOS 166 U/L (45-117); BILIRUBIN,TOTAL 0.3 mg/dL (0.2-1.0); CREATININE 2.8 mg/dL (0.7-1.3); SGOT/AST 35 U/L (15-37); SGPT/ALT 47 U/L (12-78); TOT PROT 5.5 g/dl (6.4-8.2)
--- NOTE | 2017-04-08 08:50 | PN ---
Progress Note (short form) - Note Progress Note: Patient seen and examined. Chart reviewed. Currently sitting up in bed, lethargic but responsive and appropriate. Denies new chest discomfort or bladder discomfort. Labs, radiologic testing and progress notes/consultations reviewed. Selected Entries 04/07/17 04/08/17 21:00 06:00 Temperature 97.5 F L Pulse Rate 77 Respiratory 18 Rate Blood Pressure 160/80 O2 Sat by Pulse 98 Oximetry (%) Oxygen Delivery Room Air Method Laboratory Tests 04/08/17 04/08/17 06:30 06:30 WBC 8.1 D Hgb 7.9 L Hct 23.7 L Plt Count 235 Sodium 149 H Potassium 4.1 Chloride 117 H Carbon Dioxide 23 BUN 56 H Creatinine 2.8 H Random Glucose 93 Calcium 8.7 AST 35 D ALT 47 D Alkaline Phosphatase 166 H Total Protein 5.5 L Albumin 3.0 L Chest Lungs clear with evidence of mild upper airway congestion with expiratory wheeze Cor RRR Abd Soft Mildly distended Non-tender No mass F/C in place with no gross hematuria presently Ext Mild swelling with erythema RLE with open areas Overall appears less erythematous Neuro No new focal deficit Assessment and Plan Cellulitis On Rx as per ID Improved UTI Group D strep Await formal sensitivities Clinda added to cephalosporin Upper airway congestion Add albuterol via nebulizer as needed May require swallowing assessment Anemia 7.5/22.5>>7.9/23.7 Multifactorial Blood loss and likely chronic disease related to CRI Check ferrokinetics if not previously performed CRI Acute on chronic BUN/Cr 62/2.7>>56/2.8 Hypoalbuminemia 3.0 Likely related to both acute/chronic disease as well as nutritional factors Metabolic encephalopathy Possible underlying Dementia according to notes Observe BPH F/C in place HPL Stable HTN Stable Continue current Rx
[2017-04-08] MEDS ORDERED: PT OWN MED DRAWER 7, Y5N ONE (10:14)
[2017-04-08] MEDS ORDERED: cefTRIAXone SODIUM 1 GM VIAL ONE (10:14)
[2017-04-08] MEDS ORDERED: DEXTROSE 5%-WATER - 50 ML IVPB ONE (10:14)
[2017-04-08] MEDS: TAMSULOSIN HCL 0.4 MG CAP.ER.24H (FP) PO SCH (10:22)
[2017-04-08] MEDS: MULTIVITAMINS (DAILY MVI) TABLET (FP) PO SCH (10:22)
[2017-04-08] MEDS: amLODIPine BESYLATE 10 MG TABLET (FP) PO SCH (10:22)
[2017-04-08] MEDS: FERROUS SO4 325 MG TABLET (FP) PO SCH ×2 (10:22→21:52)
[2017-04-08] MEDS: ESCITALOPRAM OXALATE 20 MG TABLET (FP) PO SCH (10:22)
[2017-04-08] MEDS: CEFTRIAXONE 1 GM in DEXTROSE 5%-WATER - 50 ML IVPB SCH (10:22)
[2017-04-08] MEDS: ASCORBIC ACID 500 MG TABLET (FP) PO SCH ×2 (10:22→21:51)
[2017-04-08] MEDS: SODIUM BICARBONATE 650 MG TABLET PO SCH ×2 (10:22→21:51)
[2017-04-08] MEDS: METOPROLOL SUCCINATE 25 MG TAB.SR.24H (FP) PO SCH (10:22)
[2017-04-08] MEDS: RANITIDINE HCL 150 MG TABLET (FP) PO SCH ×2 (10:22→21:51)
[2017-04-08] MEDS: CILOSTAZOL 100 MG TABLET PO SCH ×2 (10:23→21:52)
[2017-04-08] MEDS: PERPHENAZINE 2 MG TABLET PO SCH (10:23)
[2017-04-08] MEDS: OLANZAPINE 2.5 MG, OLANZAPINE 5 MG PO SCH (10:24)
[2017-04-08] MEDS: NYSTATIN 100,000 UNIT/GM TOPICAL CREAM 15 GM TUBE TP SCH ×2 (10:27→21:51)
[2017-04-08] MEDS: VITAMINS A AND D TOPICAL OINTMENT 60 GM TUBE TP SCH ×2 (10:27→21:59)
[2017-04-08] MEDS: ALBUTEROL SO4 0.083% IH SOL 2.5 MG/3 ML VIAL.NEB. NEB PRN (11:03)
--- NOTE | 2017-04-08 12:26 | PN ---
Progress Note, Physician History of Present Illness: much more awake and alert uncooperative patient wheezing - Current Medication List Current Medications: Active Medications Acetaminophen (Tylenol -) 650 mg PO Q4H PRN PRN Reason: FEVER OR PAIN Albuterol Sulfate (Ventolin 0.083% Nebulizer Soln -) 1 amp NEB Q6H PRN PRN Reason: SHORT OF BREATH/WHEEZING Last Admin: 04/08/17 11:03 Dose: 1 amp Amlodipine Besylate (Norvasc -) 10 mg PO DAILY [facility] Last Admin: 04/08/17 10:22 Dose: 10 mg Ascorbic Acid (Vitamin C -) 500 mg PO BID [facility] Last Admin: 04/08/17 10:22 Dose: 500 mg Cilostazol (Pletal -) 100 mg PO BID [facility] Last Admin: 04/08/17 10:23 Dose: 100 mg Clindamycin HCl (Cleocin -) 300 mg PO Q6HPO [facility] Last Admin: 04/08/17 06:50 Dose: 300 mg Escitalopram Oxalate (Lexapro -) 20 mg PO DAILY [facility] Last Admin: 04/08/17 10:22 Dose: 20 mg Ferrous Sulfate (Feosol -) 325 mg PO BID [facility] Last Admin: 04/08/17 10:22 Dose: 325 mg Heparin Sodium (Porcine) (Heparin -) 5,000 unit SQ Q8H-IV [facility] Last Admin: 04/08/17 10:22 Dose: 5,000 unit Ceftriaxone Sodium 1 gm/ (Dextrose) 50 mls @ 100 mls/hr IVPB DAILY [facility] Last Admin: 04/08/17 10:22 Dose: 100 mls/hr Metoprolol Succinate (Toprol Xl -) 25 mg PO DAILY [facility] Last Admin: 04/08/17 10:22 Dose: 25 mg Multivitamins/Minerals/Vitamin C (Tab-A-Vit -) 1 tab PO DAILY [facility] Last Admin: 04/08/17 10:22 Dose: 1 tab Nystatin (Mycostatin Cream -) 1 applic TP BID [facility] Last Admin: 04/08/17 10:27 Dose: 1 applic Olanzapine 2.5 mg/ Olanzapine (5 mg) 7.5 mg PO DAILY [facility] Last Admin: 04/08/17 10:24 Dose: 7.5 mg Ondansetron HCl (Zofran Injection) 4 mg IVPB Q6H PRN PRN Reason: NAUSEA Perphenazine (Trilafon) 0.5 mg PO DAILY [facility] Last Admin: 04/08/17 10:23 Dose: 0.5 mg Ranitidine HCl (Zantac -) 150 mg PO BID [facility] Last Admin: 04/08/17 10:22 Dose: 150 mg Sodium Bicarbonate (Sodium Bicarbonate -) 650 mg PO BID [facility] Last Admin: 04/08/17 10:22 Dose: 650 mg Tamsulosin HCl (Flomax -) 0.4 mg PO DAILY@0830 [facility] Last Admin: 04/08/17 10:22 Dose: 0.4 mg Vitamin A/Vitamin D (Vitamin A & D Top Oint -) 1 applic TP BID [facility] Last Admin: 04/08/17 10:27 Dose: 1 applic - Objective Vital Signs: Vital Signs Temperature 97.5 F L 04/08/17 06:00 Pulse Rate 77 04/08/17 06:00 Respiratory Rate 18 04/08/17 06:00 Blood Pressure 160/80 04/08/17 06:00 O2 Sat by Pulse Oximetry (%) 98 04/07/17 21:00 Constitutional: Yes: Calm, Mild Distress Cardiovascular: Yes: Regular Rate and Rhythm Respiratory: Yes: Poor Air Entry, Wheezes (bilateral wheezing present) Gastrointestinal: Yes: Normal Bowel Sounds, Soft Musculoskeletal: Yes: WNL Extremities: Yes: Other Neurological: Yes: Alert Psychiatric: Yes: Alert Labs: CBC, BMP 04/08/17 06:30 04/08/17 06:30 Assessment/Plan uti hematuria cough cellulitis of the rt leg arf plan continue current mgmt rest as per primary pls give neb
[2017-04-09] MEDS: HEPARIN NA (PORCINE) 5,000 UNITS/ML 1ML VIAL SQ SCH ×2 (02:00→10:16)
[2017-04-09 07:33] LABS: MCH 31.6 pg (25.7-33.7); MCHC 33.5 g/dl (32.0-35.9); MEAN CELL VOLUME 94.4 fl (80-96); MEAN PLT VOLUME 8.7 fl (7.5-11.1); NEUTROPHILS 89.2 % (42.8-82.8); PLATELET COUNT 269 K/MM3 (134-434); RDW 15.3 % (11.9-15.9); WHITE BLOOD COUNT 9.3 K/mm3 (4.0-10.0)
[2017-04-09 07:34] LABS: BASOPHIL 0.6 % (0-2.0); EOSINOPHIL 0.8 % (0-4.5)
[2017-04-09 07:49] LABS: ALBUMIN 3.2 g/dl (3.4-5.0); ANION GAP 10 (8-16); BILIRUBIN,TOTAL 0.3 mg/dL (0.2-1.0); CO2 23 mmol/L (21-32); CREATININE 2.9 mg/dL (0.7-1.3); GLUCOSE,RANDOM 107 mg/dL (74-106); SGOT/AST 26 U/L (15-37); SGPT/ALT 50 U/L (12-78); TOT PROT 5.7 g/dl (6.4-8.2)
[2017-04-09 07:50] LABS: ALK PHOS 173 U/L (45-117)
[2017-04-09] MEDS: CLINDAMYCIN HCL 150 MG CAPSULE (FP) PO SCH ×4 (07:51→17:21)
[2017-04-09] MEDS ORDERED: DEXTROSE 5%-WATER - 50 ML IVPB ONE ×2 (10:00→10:12)
[2017-04-09] MEDS ORDERED: cefTRIAXone SODIUM 1 GM VIAL ONE ×2 (10:00→10:12)
[2017-04-09] MEDS ORDERED: PT OWN MED DRAWER 7, Y5N ONE ×2 (10:01→21:52)
[2017-04-09] MEDS: MULTIVITAMINS (DAILY MVI) TABLET (FP) PO SCH (10:16)
[2017-04-09] MEDS: ESCITALOPRAM OXALATE 20 MG TABLET (FP) PO SCH (10:16)
[2017-04-09] MEDS: SODIUM BICARBONATE 650 MG TABLET PO SCH ×2 (10:16→22:46)
[2017-04-09] MEDS: METOPROLOL SUCCINATE 25 MG TAB.SR.24H (FP) PO SCH (10:16)
[2017-04-09] MEDS: CEFTRIAXONE 1 GM in DEXTROSE 5%-WATER - 50 ML IVPB SCH (10:16)
[2017-04-09] MEDS: amLODIPine BESYLATE 10 MG TABLET (FP) PO SCH (10:16)
[2017-04-09] MEDS: ASCORBIC ACID 500 MG TABLET (FP) PO SCH ×2 (10:16→22:46)
[2017-04-09] MEDS: FERROUS SO4 325 MG TABLET (FP) PO SCH ×2 (10:16→22:46)
[2017-04-09] MEDS: TAMSULOSIN HCL 0.4 MG CAP.ER.24H (FP) PO SCH (10:17)
[2017-04-09] MEDS: RANITIDINE HCL 150 MG TABLET (FP) PO SCH ×2 (10:17→22:46)
[2017-04-09] MEDS: NYSTATIN 100,000 UNIT/GM TOPICAL CREAM 15 GM TUBE TP SCH ×2 (10:18→22:00)
[2017-04-09] MEDS: CILOSTAZOL 100 MG TABLET PO SCH ×2 (10:19→22:46)
[2017-04-09] MEDS: VITAMINS A AND D TOPICAL OINTMENT 60 GM TUBE TP SCH ×2 (10:21→22:46)
--- NOTE | 2017-04-09 10:41 | PN ---
Progress Note, Physician Chief Complaint: Mr Reynoso says he feels the need to urinate. no cp, sob, n/v. - Current Medication List Current Medications: Active Medications Acetaminophen (Tylenol -) 650 mg PO Q4H PRN PRN Reason: FEVER OR PAIN Albuterol Sulfate (Ventolin 0.083% Nebulizer Soln -) 1 amp NEB Q6H PRN PRN Reason: SHORT OF BREATH/WHEEZING Last Admin: 04/08/17 11:03 Dose: 1 amp Amlodipine Besylate (Norvasc -) 10 mg PO DAILY [facility] Last Admin: 04/09/17 10:16 Dose: 10 mg Ascorbic Acid (Vitamin C -) 500 mg PO BID [facility] Last Admin: 04/09/17 10:16 Dose: 500 mg Cilostazol (Pletal -) 100 mg PO BID [facility] Last Admin: 04/09/17 10:19 Dose: 100 mg Clindamycin HCl (Cleocin -) 300 mg PO Q6HPO [facility] Last Admin: 04/09/17 07:51 Dose: Not Given Escitalopram Oxalate (Lexapro -) 20 mg PO DAILY [facility] Last Admin: 04/09/17 10:16 Dose: 20 mg Ferrous Sulfate (Feosol -) 325 mg PO BID [facility] Last Admin: 04/09/17 10:16 Dose: 325 mg Ceftriaxone Sodium 1 gm/ (Dextrose) 50 mls @ 100 mls/hr IVPB DAILY [facility] Last Admin: 04/09/17 10:16 Dose: 100 mls/hr Metoprolol Succinate (Toprol Xl -) 25 mg PO DAILY [facility] Last Admin: 04/09/17 10:16 Dose: 25 mg Multivitamins/Minerals/Vitamin C (Tab-A-Vit -) 1 tab PO DAILY [facility] Last Admin: 04/09/17 10:16 Dose: 1 tab Nystatin (Mycostatin Cream -) 1 applic TP BID [facility] Last Admin: 04/09/17 10:18 Dose: 1 applic Olanzapine 2.5 mg/ Olanzapine (5 mg) 7.5 mg PO DAILY [facility] Last Admin: 04/08/17 10:24 Dose: 7.5 mg Ondansetron HCl (Zofran Injection) 4 mg IVPB Q6H PRN PRN Reason: NAUSEA Perphenazine (Trilafon) 0.5 mg PO DAILY [facility] Last Admin: 08/27/17 10:23 Dose: 0.5 mg Ranitidine HCl (Zantac -) 150 mg PO BID [facility] Last Admin: 04/09/17 10:17 Dose: 150 mg Sodium Bicarbonate (Sodium Bicarbonate -) 650 mg PO BID [facility] Last Admin: 04/09/17 10:16 Dose: 650 mg Tamsulosin HCl (Flomax -) 0.4 mg PO DAILY@0830 [facility] Last Admin: 04/09/17 10:17 Dose: 0.4 mg Vitamin A/Vitamin D (Vitamin A & D Top Oint -) 1 applic TP BID [facility] Last Admin: 04/09/17 10:21 Dose: 1 applic - Objective Vital Signs: Vital Signs Temperature 36.6 C 04/09/17 05:00 Pulse Rate 80 04/09/17 05:00 Respiratory Rate 20 04/09/17 05:00 Blood Pressure 155/71 04/09/17 05:00 O2 Sat by Pulse Oximetry (%) 94 L 04/08/17 21:00 Constitutional: Yes: Well Nourished, No Distress, Calm Cardiovascular: Yes: Regular Rate and Rhythm. No: Gallop, Murmur, Rub Respiratory: Yes: Regular, CTA Bilaterally. No: Rales, Rhonchi, Wheezes Gastrointestinal: Yes: Normal Bowel Sounds, Soft. No: Distention, Tenderness Extremities: Yes: Erythema Edema: No Labs: CBC, BMP 04/09/17 06:30 04/09/17 06:30 Assessment/Plan 1. Cellulitis -improved since last seen -continue clindamycin -can finish as an outpatient 2. UTI -culture resulted, growing group B strep -currently on rocephin -very sensitive to penicillin, ? change to amoxicillin or ampicillin -will d/w ID -will need full course 3. Hematuria -increased today -call placed to urology 4. Metabolic encephalopathy -at baseline 5. DAVID on CKD -at baseline -nephrology following 6. Dementia -continue home regimen 7. BPH -continue flomax -harris in place -urology consulted
[2017-04-09] MEDS: OLANZAPINE 2.5 MG, OLANZAPINE 5 MG PO SCH (10:45)
[2017-04-09] MEDS: PERPHENAZINE 2 MG TABLET PO SCH (10:46)
--- NOTE | 2017-04-09 11:37 | PN ---
Progress Note, Physician History of Present Illness: awake alert still uncoperative pulling things wounds of the legs noted one s opened up slightly - Current Medication List Current Medications: Active Medications Acetaminophen (Tylenol -) 650 mg PO Q4H PRN PRN Reason: FEVER OR PAIN Albuterol Sulfate (Ventolin 0.083% Nebulizer Soln -) 1 amp NEB Q6H PRN PRN Reason: SHORT OF BREATH/WHEEZING Last Admin: 04/08/17 11:03 Dose: 1 amp Amlodipine Besylate (Norvasc -) 10 mg PO DAILY REPLACED BY [facility] Last Admin: 04/09/17 10:16 Dose: 10 mg Ascorbic Acid (Vitamin C -) 500 mg PO BID REPLACED BY [facility] Last Admin: 04/09/17 10:16 Dose: 500 mg Cilostazol (Pletal -) 100 mg PO BID REPLACED BY [facility] Last Admin: 04/09/17 10:19 Dose: 100 mg Clindamycin HCl (Cleocin -) 300 mg PO Q6HPO REPLACED BY [facility] Last Admin: 04/09/17 07:51 Dose: Not Given Escitalopram Oxalate (Lexapro -) 20 mg PO DAILY REPLACED BY [facility] Last Admin: 04/09/17 10:16 Dose: 20 mg Ferrous Sulfate (Feosol -) 325 mg PO BID REPLACED BY [facility] Last Admin: 04/09/17 10:16 Dose: 325 mg Ceftriaxone Sodium 1 gm/ (Dextrose) 50 mls @ 100 mls/hr IVPB DAILY REPLACED BY [facility] Last Admin: 04/09/17 10:16 Dose: 100 mls/hr Metoprolol Succinate (Toprol Xl -) 25 mg PO DAILY REPLACED BY [facility] Last Admin: 04/09/17 10:16 Dose: 25 mg Multivitamins/Minerals/Vitamin C (Tab-A-Vit -) 1 tab PO DAILY REPLACED BY [facility] Last Admin: 04/09/17 10:16 Dose: 1 tab Nystatin (Mycostatin Cream -) 1 applic TP BID REPLACED BY [facility] Last Admin: 04/09/17 10:18 Dose: 1 applic Olanzapine 2.5 mg/ Olanzapine (5 mg) 7.5 mg PO DAILY REPLACED BY [facility] Last Admin: 04/09/17 10:45 Dose: 7.5 mg Ondansetron HCl (Zofran Injection) 4 mg IVPB Q6H PRN PRN Reason: NAUSEA Perphenazine (Trilafon) 0.5 mg PO DAILY REPLACED BY [facility] Last Admin: 04/09/17 10:46 Dose: 0.5 mg Ranitidine HCl (Zantac -) 150 mg PO BID REPLACED BY [facility] Last Admin: 04/09/17 10:17 Dose: 150 mg Sodium Bicarbonate (Sodium Bicarbonate -) 650 mg PO BID REPLACED BY [facility] Last Admin: 04/09/17 10:16 Dose: 650 mg Tamsulosin HCl (Flomax -) 0.4 mg PO DAILY@0830 REPLACED BY [facility] Last Admin: 04/09/17 10:17 Dose: 0.4 mg Vitamin A/Vitamin D (Vitamin A & D Top Oint -) 1 applic TP BID REPLACED BY [facility] Last Admin: 04/09/17 10:21 Dose: 1 applic - Objective Vital Signs: Vital Signs Temperature 98 F 04/09/17 05:00 Pulse Rate 80 04/09/17 05:00 Respiratory Rate 20 04/09/17 05:00 Blood Pressure 155/71 04/09/17 05:00 O2 Sat by Pulse Oximetry (%) 94 L 04/08/17 21:00 Constitutional: Yes: Calm, Anxious Cardiovascular: Yes: Regular Rate and Rhythm Respiratory: Yes: Regular, CTA Bilaterally Gastrointestinal: Yes: Normal Bowel Sounds, Soft Musculoskeletal: Yes: Other Extremities: Yes: Erythema (improving), Other (one wound is opened) Integumentary: Yes: Erythema Wound/Incision: Yes: Clean/Dry, Open to air Neurological: Yes: Alert, Other Psychiatric: Yes: Alert Labs: CBC, BMP 04/09/17 06:30 04/09/17 06:30 Assessment/Plan uti hematuria cough cellulitis of the rt leg arf plan continue current mgmt rest as per primary we should get wound care will d/w the primary team
--- NOTE | 2017-04-09 16:32 | PN ---
Progress Note (short form) - Note Progress Note: Renal Follow up for SUZI/CKD pt seen and examined in the hallway no acute complaints no overnight events Vital Signs Temperature 97.6 F 04/09/17 15:37 Pulse Rate 71 04/09/17 15:37 Respiratory Rate 20 04/09/17 15:37 Blood Pressure 132/70 04/09/17 15:37 O2 Sat by Pulse Oximetry (%) 97 04/09/17 09:00 Intake & Output 04/06/17 04/07/17 04/08/17 04/09/17 23:59 23:59 23:59 23:59 Intake Total 1694 1402 890 950 Output Total 2000 700 1200 750 Balance -306 702 -310 200 Gen: NAD, awake and alert CVS: RRR, No M/R Lungs: CTA Abd: soft NT/ND Ext: No edema, clubbing or cyanosis Gu: No bladder distension, harris in place CBC, BMP 04/09/17 06:30 04/09/17 06:30 Current Medications Acetaminophen (Tylenol -) 650 mg PO Q4H PRN PRN Reason: FEVER OR PAIN Albuterol Sulfate (Ventolin 0.083% Nebulizer Soln -) 1 amp NEB Q6H PRN PRN Reason: SHORT OF BREATH/WHEEZING Last Admin: 04/08/17 11:03 Dose: 1 amp Amlodipine Besylate (Norvasc -) 10 mg PO DAILY [facility] Last Admin: 04/09/17 10:16 Dose: 10 mg Ascorbic Acid (Vitamin C -) 500 mg PO BID [facility] Last Admin: 04/09/17 10:16 Dose: 500 mg Cilostazol (Pletal -) 100 mg PO BID [facility] Last Admin: 04/09/17 10:19 Dose: 100 mg Clindamycin HCl (Cleocin -) 300 mg PO Q6HPO [facility] Last Admin: 04/09/17 17:21 Dose: 300 mg Escitalopram Oxalate (Lexapro -) 20 mg PO DAILY [facility] Last Admin: 04/09/17 10:16 Dose: 20 mg Ferrous Sulfate (Feosol -) 325 mg PO BID [facility] Last Admin: 04/09/17 10:16 Dose: 325 mg Furosemide (Lasix -) 40 mg PO DAILY [facility] Last Admin: 04/09/17 17:18 Dose: 40 mg Ceftriaxone Sodium 1 gm/ (Dextrose) 50 mls @ 100 mls/hr IVPB DAILY [facility] Last Admin: 04/09/17 10:16 Dose: 100 mls/hr Metoprolol Succinate (Toprol Xl -) 25 mg PO DAILY [facility] Last Admin: 04/09/17 10:16 Dose: 25 mg Multivitamins/Minerals/Vitamin C (Tab-A-Vit -) 1 tab PO DAILY [facility] Last Admin: 04/09/17 10:16 Dose: 1 tab Nystatin (Mycostatin Cream -) 1 applic TP BID [facility] Last Admin: 04/09/17 10:18 Dose: 1 applic Olanzapine 2.5 mg/ Olanzapine (5 mg) 7.5 mg PO DAILY [facility] Last Admin: 04/09/17 10:45 Dose: 7.5 mg Ondansetron HCl (Zofran Injection) 4 mg IVPB Q6H PRN PRN Reason: NAUSEA Perphenazine (Trilafon) 0.5 mg PO DAILY [facility] Last Admin: 04/09/17 10:46 Dose: 0.5 mg Ranitidine HCl (Zantac -) 150 mg PO BID [facility] Last Admin: 04/09/17 10:17 Dose: 150 mg Sodium Bicarbonate (Sodium Bicarbonate -) 650 mg PO BID [facility] Last Admin: 04/09/17 10:16 Dose: 650 mg Tamsulosin HCl (Flomax -) 0.4 mg PO DAILY@0830 [facility] Last Admin: 04/09/17 10:17 Dose: 0.4 mg Vitamin A/Vitamin D (Vitamin A & D Top Oint -) 1 applic TP BID [facility] Last Admin: 04/09/17 10:21 Dose: 1 applic A/P 86 year old Gentleman with PMhx of CKD (baseline 2.1-2.6), CHF, Anemia, GIB, Hyperlipidemia s/p recent admission for acute on chronic anemia who was readmitted from [place] with gross hematuria #Tramatic Hematuria harris in place, urine continues to be bloody #SUZI on CKD Renal function stable start Lasix today, trend BUN/Cr on diuretics #Urinary retention continue Harris continue Flomax #Hypertension Continue amlodipine no DIPTI/ARB at this time #Anemia Trend CBC, transfuse for Hgb less then 7 Thank you Will follow Teja Mercedes DO
[2017-04-09] MEDS: FUROSEMIDE 40 MG TABLET (FP) PO SCH (17:18)
[2017-04-09] MEDS: ALBUTEROL SO4 0.083% IH SOL 2.5 MG/3 ML VIAL.NEB. NEB PRN (23:15)
[2017-04-10] MEDS: CLINDAMYCIN HCL 150 MG CAPSULE (FP) PO SCH ×5 (01:47→23:20)
[2017-04-10 07:25] LABS: BASOPHIL 0.3 % (0-2.0); EOSINOPHIL 0.5 % (0-4.5); MCH 31.6 pg (25.7-33.7); MCHC 33.4 g/dl (32.0-35.9); MEAN CELL VOLUME 94.7 fl (80-96); MEAN PLT VOLUME 8.5 fl (7.5-11.1); NEUTROPHILS 90.4 % (42.8-82.8); PLATELET COUNT 235 K/MM3 (134-434); RDW 15.6 % (11.9-15.9); WHITE BLOOD COUNT 8.5 K/mm3 (4.0-10.0)
[2017-04-10 08:14] LABS: ANION GAP 10 (8-16); CALCIUM 8.7 mg/dL (8.5-10.1); CO2 21 mmol/L (21-32); CREATININE 2.7 mg/dL (0.7-1.3); GLUCOSE,RANDOM 116 mg/dL (74-106); PHOSPHOROUS 4.1 mg/dL (2.5-4.9)
[2017-04-10] MEDS: TAMSULOSIN HCL 0.4 MG CAP.ER.24H (FP) PO SCH (08:19)
--- NOTE | 2017-04-10 09:44 | PN ---
Progress Note, Physician History of Present Illness: awake alert sitting in chair in no discomfort - Current Medication List Current Medications: Active Medications Acetaminophen (Tylenol -) 650 mg PO Q4H PRN PRN Reason: FEVER OR PAIN Albuterol Sulfate (Ventolin 0.083% Nebulizer Soln -) 1 amp NEB Q6H PRN PRN Reason: SHORT OF BREATH/WHEEZING Last Admin: 04/09/17 23:15 Dose: 1 amp Amlodipine Besylate (Norvasc -) 10 mg PO DAILY [facility] Last Admin: 04/09/17 10:16 Dose: 10 mg Ascorbic Acid (Vitamin C -) 500 mg PO BID [facility] Last Admin: 04/09/17 22:46 Dose: 500 mg Cilostazol (Pletal -) 100 mg PO BID [facility] Last Admin: 04/09/17 22:46 Dose: 100 mg Clindamycin HCl (Cleocin -) 300 mg PO Q6HPO [facility] Last Admin: 04/10/17 06:55 Dose: 300 mg Escitalopram Oxalate (Lexapro -) 20 mg PO DAILY [facility] Last Admin: 04/09/17 10:16 Dose: 20 mg Ferrous Sulfate (Feosol -) 325 mg PO BID [facility] Last Admin: 04/09/17 22:46 Dose: 325 mg Furosemide (Lasix -) 40 mg PO DAILY [facility] Last Admin: 04/09/17 17:18 Dose: 40 mg Ceftriaxone Sodium 1 gm/ (Dextrose) 50 mls @ 100 mls/hr IVPB DAILY [facility] Last Admin: 04/09/17 10:16 Dose: 100 mls/hr Metoprolol Succinate (Toprol Xl -) 25 mg PO DAILY [facility] Last Admin: 04/09/17 10:16 Dose: 25 mg Multivitamins/Minerals/Vitamin C (Tab-A-Vit -) 1 tab PO DAILY [facility] Last Admin: 04/09/17 10:16 Dose: 1 tab Nystatin (Mycostatin Cream -) 1 applic TP BID [facility] Last Admin: 04/09/17 22:00 Dose: 1 applic Olanzapine 2.5 mg/ Olanzapine (5 mg) 7.5 mg PO DAILY [facility] Last Admin: 04/09/17 10:45 Dose: 7.5 mg Ondansetron HCl (Zofran Injection) 4 mg IVPB Q6H PRN PRN Reason: NAUSEA Perphenazine (Trilafon) 0.5 mg PO DAILY [facility] Last Admin: 04/09/17 10:46 Dose: 0.5 mg Ranitidine HCl (Zantac -) 150 mg PO BID [facility] Last Admin: 04/09/17 22:46 Dose: 150 mg Sodium Bicarbonate (Sodium Bicarbonate -) 650 mg PO BID [facility] Last Admin: 04/09/17 22:46 Dose: 650 mg Tamsulosin HCl (Flomax -) 0.4 mg PO DAILY@0830 [facility] Last Admin: 04/10/17 08:19 Dose: 0.4 mg Vitamin A/Vitamin D (Vitamin A & D Top Oint -) 1 applic TP BID [facility] Last Admin: 04/09/17 22:46 Dose: 1 applic - Objective Vital Signs: Vital Signs Temperature 97.5 F L 04/10/17 06:00 Pulse Rate 78 04/10/17 06:00 Respiratory Rate 20 04/10/17 06:00 Blood Pressure 139/61 04/10/17 06:00 O2 Sat by Pulse Oximetry (%) 97 04/09/17 21:00 Constitutional: Yes: No Distress, Calm Cardiovascular: Yes: Regular Rate and Rhythm Respiratory: Yes: Regular, CTA Bilaterally Gastrointestinal: Yes: Normal Bowel Sounds, Soft Musculoskeletal: Yes: Other Extremities: Yes: Other Neurological: Yes: Alert, Other Labs: CBC, BMP 04/10/17 06:00 04/10/17 06:00 Assessment/Plan uti hematuria cough cellulitis of the rt leg arf plan continue current mgmt can change treatment to orl augmentin and clinda patient will need wound care
[2017-04-10] MEDS ORDERED: PT OWN MED DRAWER 7, Y5N ONE ×3 (10:04→21:18)
[2017-04-10] MEDS: FERROUS SO4 325 MG TABLET (FP) PO SCH ×2 (10:20→21:40)
[2017-04-10] MEDS: ESCITALOPRAM OXALATE 20 MG TABLET (FP) PO SCH (10:21)
[2017-04-10] MEDS: amLODIPine BESYLATE 10 MG TABLET (FP) PO SCH (10:21)
[2017-04-10] MEDS: NYSTATIN 100,000 UNIT/GM TOPICAL CREAM 15 GM TUBE TP SCH ×2 (10:21→21:40)
[2017-04-10] MEDS: FUROSEMIDE 40 MG TABLET (FP) PO SCH (10:21)
[2017-04-10] MEDS: METOPROLOL SUCCINATE 25 MG TAB.SR.24H (FP) PO SCH (10:22)
[2017-04-10] MEDS: CILOSTAZOL 100 MG TABLET PO SCH ×2 (10:22→21:40)
[2017-04-10] MEDS: SODIUM BICARBONATE 650 MG TABLET PO SCH ×2 (10:22→21:40)
[2017-04-10] MEDS: MULTIVITAMINS (DAILY MVI) TABLET (FP) PO SCH (10:22)
[2017-04-10] MEDS: RANITIDINE HCL 150 MG TABLET (FP) PO SCH ×2 (10:23→21:40)
[2017-04-10] MEDS: VITAMINS A AND D TOPICAL OINTMENT 60 GM TUBE TP SCH ×2 (10:23→21:41)
[2017-04-10] MEDS: PERPHENAZINE 2 MG TABLET PO SCH (10:23)
[2017-04-10] MEDS: ASCORBIC ACID 500 MG TABLET (FP) PO SCH ×2 (10:23→21:39)
[2017-04-10] MEDS: AMOX TR/POT CLAV 500MG/125MG TABLETS (FP) PO SCH ×2 (10:24→17:17)
[2017-04-10] MEDS: OLANZAPINE 2.5 MG, OLANZAPINE 5 MG PO SCH (10:24)
--- NOTE | 2017-04-10 10:47 | PN ---
Progress Note, Physician Chief Complaint: Unable to obtain today, patient not cooperative this morning. Speaks to RN but not me this am. - Current Medication List Current Medications: Active Medications Acetaminophen (Tylenol -) 650 mg PO Q4H PRN PRN Reason: FEVER OR PAIN Albuterol Sulfate (Ventolin 0.083% Nebulizer Soln -) 1 amp NEB Q6H PRN PRN Reason: SHORT OF BREATH/WHEEZING Last Admin: 04/09/17 23:15 Dose: 1 amp Amlodipine Besylate (Norvasc -) 10 mg PO DAILY [facility] Last Admin: 04/10/17 10:21 Dose: 10 mg Amoxicillin/Clavulanate Potassium (Augmentin - 500mg Tablet) 1 tab PO BID@0800, 1730 [facility] Last Admin: 04/10/17 10:24 Dose: 1 tab Ascorbic Acid (Vitamin C -) 500 mg PO BID [facility] Last Admin: 04/10/17 10:23 Dose: 500 mg Cilostazol (Pletal -) 100 mg PO BID [facility] Last Admin: 04/10/17 10:22 Dose: 100 mg Clindamycin HCl (Cleocin -) 300 mg PO Q6HPO [facility] Last Admin: 04/10/17 06:55 Dose: 300 mg Escitalopram Oxalate (Lexapro -) 20 mg PO DAILY [facility] Last Admin: 04/10/17 10:21 Dose: 20 mg Ferrous Sulfate (Feosol -) 325 mg PO BID [facility] Last Admin: 04/10/17 10:20 Dose: 325 mg Furosemide (Lasix -) 40 mg PO DAILY [facility] Last Admin: 04/10/17 10:21 Dose: 40 mg Metoprolol Succinate (Toprol Xl -) 25 mg PO DAILY [facility] Last Admin: 04/10/17 10:22 Dose: 25 mg Multivitamins/Minerals/Vitamin C (Tab-A-Vit -) 1 tab PO DAILY [facility] Last Admin: 04/10/17 10:22 Dose: 1 tab Nystatin (Mycostatin Cream -) 1 applic TP BID [facility] Last Admin: 04/10/17 10:21 Dose: 1 applic Olanzapine 2.5 mg/ Olanzapine (5 mg) 7.5 mg PO DAILY [facility] Last Admin: 04/10/17 10:24 Dose: 7.5 mg Ondansetron HCl (Zofran Injection) 4 mg IVPB Q6H PRN PRN Reason: NAUSEA Perphenazine (Trilafon) 0.5 mg PO DAILY [facility] Last Admin: 04/10/17 10:23 Dose: 0.5 mg Ranitidine HCl (Zantac -) 150 mg PO BID [facility] Last Admin: 04/10/17 10:23 Dose: 150 mg Sodium Bicarbonate (Sodium Bicarbonate -) 650 mg PO BID [facility] Last Admin: 04/10/17 10:22 Dose: 650 mg Tamsulosin HCl (Flomax -) 0.4 mg PO DAILY@0830 [facility] Last Admin: 04/10/17 08:19 Dose: 0.4 mg Vitamin A/Vitamin D (Vitamin A & D Top Oint -) 1 applic TP BID [facility] Last Admin: 04/10/17 10:23 Dose: 1 applic - Objective Vital Signs: Vital Signs Temperature 36.7 C 04/10/17 10:00 Pulse Rate 74 04/10/17 10:00 Respiratory Rate 20 04/10/17 10:00 Blood Pressure 143/56 04/10/17 10:00 O2 Sat by Pulse Oximetry (%) 97 04/09/17 21:00 Constitutional: Yes: Well Nourished, No Distress, Calm Cardiovascular: Yes: Regular Rate and Rhythm. No: Gallop, Murmur, Rub Respiratory: Yes: Regular, CTA Bilaterally. No: Rales, Rhonchi, Wheezes Gastrointestinal: Yes: Normal Bowel Sounds, Soft. No: Distention, Tenderness Genitourinary: Yes: Hematuria Extremities: Yes: Erythema Edema: No Labs: CBC, BMP 04/10/17 06:00 04/10/17 06:00 Assessment/Plan 1. Cellulitis -appreciate ID assistance -continue clindamycin 2. UTI -ID following -changed to augmentin for full course 3. Hematuria -urology to come and evaluate 4. Metabolic encephalopathy -at baseline 5. DAVID on CKD -at baseline -nephrology following 6. Dementia -continue home regimen 7. BPH -continue flomax -harris in place -urology consulted 8. Anemia -blood loss -may need transfusion
--- NOTE | 2017-04-10 13:13 | PN ---
Progress Note (short form) - Note Progress Note: Renal Follow up for SUZI/CKD pt seen and examined in the hallway denies any pain, CP, SOB, Abd pain, N/V/D Harris in place Vital Signs Temperature 98.0 F 04/10/17 10:00 Pulse Rate 74 04/10/17 10:00 Respiratory Rate 20 04/10/17 10:00 Blood Pressure 143/56 04/10/17 10:00 O2 Sat by Pulse Oximetry (%) 95 04/10/17 09:00 Intake & Output 04/07/17 04/08/17 04/09/17 04/10/17 23:59 23:59 23:59 23:59 Intake Total 1402 890 950 300 Output Total 700 1200 900 500 Balance 702 -310 50 -200 Gen: NAD, awake and alert CVS: RRR, No M/R Lungs: CTA Abd: soft NT/ND Ext: No edema, clubbing or cyanosis Gu: No bladder distension, harris in place CBC, BMP 04/10/17 06:00 04/10/17 06:00 Current Medications Acetaminophen (Tylenol -) 650 mg PO Q4H PRN PRN Reason: FEVER OR PAIN Albuterol Sulfate (Ventolin 0.083% Nebulizer Soln -) 1 amp NEB Q6H PRN PRN Reason: SHORT OF BREATH/WHEEZING Last Admin: 04/09/17 23:15 Dose: 1 amp Amlodipine Besylate (Norvasc -) 10 mg PO DAILY [facility] Last Admin: 04/10/17 10:21 Dose: 10 mg Amoxicillin/Clavulanate Potassium (Augmentin - 500mg Tablet) 1 tab PO BID@0800, 1730 [facility] Last Admin: 04/10/17 10:24 Dose: 1 tab Ascorbic Acid (Vitamin C -) 500 mg PO BID [facility] Last Admin: 04/10/17 10:23 Dose: 500 mg Cilostazol (Pletal -) 100 mg PO BID [facility] Last Admin: 04/10/17 10:22 Dose: 100 mg Clindamycin HCl (Cleocin -) 300 mg PO Q6HPO [facility] Last Admin: 04/10/17 12:26 Dose: 300 mg Docusate Sodium (Colace -) 100 mg PO BID [facility] Escitalopram Oxalate (Lexapro -) 20 mg PO DAILY [facility] Last Admin: 04/10/17 10:21 Dose: 20 mg Ferrous Sulfate (Feosol -) 325 mg PO BID [facility] Last Admin: 04/10/17 10:20 Dose: 325 mg Furosemide (Lasix -) 40 mg PO DAILY [facility] Last Admin: 04/10/17 10:21 Dose: 40 mg Metoprolol Succinate (Toprol Xl -) 25 mg PO DAILY [facility] Last Admin: 04/10/17 10:22 Dose: 25 mg Multivitamins/Minerals/Vitamin C (Tab-A-Vit -) 1 tab PO DAILY [facility] Last Admin: 04/10/17 10:22 Dose: 1 tab Nystatin (Mycostatin Cream -) 1 applic TP BID [facility] Last Admin: 04/10/17 10:21 Dose: 1 applic Olanzapine 2.5 mg/ Olanzapine (5 mg) 7.5 mg PO DAILY [facility] Last Admin: 04/10/17 10:24 Dose: 7.5 mg Ondansetron HCl (Zofran Injection) 4 mg IVPB Q6H PRN PRN Reason: NAUSEA Perphenazine (Trilafon) 0.5 mg PO DAILY [facility] Last Admin: 04/10/17 10:23 Dose: 0.5 mg Polyethylene Glycol (Miralax (For Daily Use) -) 17 gm PO BID [facility] Ranitidine HCl (Zantac -) 150 mg PO BID [facility] Last Admin: 04/10/17 10:23 Dose: 150 mg Sodium Bicarbonate (Sodium Bicarbonate -) 650 mg PO BID [facility] Last Admin: 04/10/17 10:22 Dose: 650 mg Tamsulosin HCl (Flomax -) 0.4 mg PO DAILY@0830 [facility] Last Admin: 04/10/17 08:19 Dose: 0.4 mg Vitamin A/Vitamin D (Vitamin A & D Top Oint -) 1 applic TP BID [facility] Last Admin: 04/10/17 10:23 Dose: 1 applic A/P 86 year old Gentleman with PMhx of CKD (baseline 2.1-2.6), CHF, Anemia, GIB, Hyperlipidemia s/p recent admission for acute on chronic anemia who was readmitted from [place] with gross hematuria #Tramatic Hematuria maintain harris urology follow up (inpatient vs. outpatient) for duration of catheter #SUZI on CKD Renal function stable at this time trend with Lasix #Urinary retention continue Harris continue Flomax #Hypertension Continue amlodipine no DIPTI/ARB at this time #Anemia Trend CBC, transfuse for Hgb less then 7 Check iron studies if iron saturation > 25% can given BLAIRE Thank you Will follow Teja Mercedes DO
[2017-04-10] MEDS: DOCUSATE SODIUM 100 MG CAPSULE (FP) PO SCH ×2 (14:32→21:39)
[2017-04-10] MEDS: POLYETHYLENE GLYCOL 3350 119 GM BTL PO SCH ×2 (14:32→21:41)
[2017-04-11] MEDS: CLINDAMYCIN HCL 150 MG CAPSULE (FP) PO SCH ×4 (06:20→23:45)
[2017-04-11 07:50] LABS: BASOPHIL 0.9 % (0-2.0); EOSINOPHIL 1.3 % (0-4.5); MCH 31.8 pg (25.7-33.7); MCHC 33.6 g/dl (32.0-35.9); MEAN CELL VOLUME 94.7 fl (80-96); NEUTROPHILS 84.6 % (42.8-82.8); PLATELET COUNT 237 K/MM3 (134-434); RDW 15.4 % (11.9-15.9); WHITE BLOOD COUNT 7.6 K/mm3 (4.0-10.0)
[2017-04-11 08:13] LABS: ANION GAP 11 (8-16); CALCIUM 9.1 mg/dL (8.5-10.1); CO2 23 mmol/L (21-32); CREATININE 2.9 mg/dL (0.7-1.3); GLUCOSE,RANDOM 80 mg/dL (74-106); MAGNESIUM 2.1 mg/dL (1.8-2.4); PHOSPHOROUS 4.8 mg/dL (2.5-4.9)
[2017-04-11] MEDS: TAMSULOSIN HCL 0.4 MG CAP.ER.24H (FP) PO SCH (09:16)
[2017-04-11] MEDS: AMOX TR/POT CLAV 500MG/125MG TABLETS (FP) PO SCH ×2 (09:16→17:51)
--- NOTE | 2017-04-11 09:43 | CON.GU ---
Consult Consult Specialty:: Referred by:: medicine Reason for Consultation:: gross hematuria, urinary retention - History of Present Illness Chief Complaint: gross hematuria, urinary retention History of Present Illness: 86 year old male NHR, dementia with urinary retention and gross hematuria. He was admitted a few weeks ago and discharged with a harris. No folllow up by patient or NH was done. He is passing clots and his Hct is going down. CBI is started with dark urine. 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 duo bx neg) - Alcohol/Substance Use Hx Alcohol Use: No - Smoking History Smoking history: Unknown if ever smoked Have you smoked in the past 12 months: No Aproximately how many cigarettes per day: 15 If you are a former smoker, when did you quit?: does not remember - Social History Usual Living Arrangement: Alone ADL: Support Services History of Recent Travel: No Home Medications - Allergies Allergies/Adverse Reactions: Allergies Allergy/AdvReac Type Severity Reaction Status Date / Time No Known Drug Allergies Allergy Verified 04/05/17 09:36 - Home Medications Home Medications: Ambulatory Orders Acetaminophen [Tylenol] 650 mg PO DAILY 04/05/17 Amlodipine Besylate 10 mg PO DAILY 04/05/17 Ascorbate Calcium [Vitamin C] 500 mg PO BID 04/05/17 Cilostazol 100 mg PO BID 04/05/17 Docusate Sodium [Colace -] 100 mg PO HS 04/05/17 Escitalopram Oxalate [Lexapro -] 20 mg PO DAILY 04/05/17 Ferrous Sulfate 325 mg PO BID 04/05/17 Furosemide [Lasix] 20 mg PO DAILY 04/05/17 Krill Oil/[place]-3/Dha/Epa [[place]-3 Krill Oil Softgel] 1 each PO DAILY 04/05/17 Metoprolol Succinate [Toprol Xl -] 25 mg PO DAILY 04/05/17 Multivitamin [One Daily] 1 each PO DAILY 04/05/17 Olanzapine 7.5 mg PO DAILY 04/05/17 Perphenazine [Trilafon] 0.5 mg PO DAILY 04/05/17 Petrolatum,White/Lanolin [Vitamin A & D Ointment] 454 gm TP BID 04/05/17 Ranitidine [Zantac -] 150 mg PO BID 04/05/17 Tamsulosin HCl [Flomax] 0.4 mg PO DAILY 04/05/17 Review of Systems - Review of Systems Genitourinary: reports: Hematuria Physical Exam- Vital Signs: Vital Signs Temperature 97.5 F L 04/11/17 08:00 Pulse Rate 65 04/11/17 08:00 Respiratory Rate 22 04/11/17 08:00 Blood Pressure 121/45 04/11/17 08:00 O2 Sat by Pulse Oximetry (%) 95 04/10/17 21:00 Renal/: Yes: Harris Present, Hematuria Labs: CBC, BMP 04/11/17 07:40 04/11/17 07:40 Assessment/Plan gross hematuria, OR scheduled.
[2017-04-11] MEDS ORDERED: PT OWN MED DRAWER 7, Y5N ONE ×2 (11:24→17:01)
[2017-04-11] MEDS: DOCUSATE SODIUM 100 MG CAPSULE (FP) PO SCH ×2 (11:29→21:37)
[2017-04-11] MEDS: POLYETHYLENE GLYCOL 3350 119 GM BTL PO SCH ×2 (11:30→21:38)
[2017-04-11] MEDS: amLODIPine BESYLATE 10 MG TABLET (FP) PO SCH (11:32)
[2017-04-11] MEDS: FUROSEMIDE 40 MG TABLET (FP) PO SCH (11:32)
[2017-04-11] MEDS: METOPROLOL SUCCINATE 25 MG TAB.SR.24H (FP) PO SCH (11:33)
--- NOTE | 2017-04-11 11:58 | PN ---
Progress Note (short form) - Note Progress Note: unable to contact health care proxy this morning for consent. will continue CBI for now. Dr. Raphael will be covering from 04/12-04/16
[2017-04-11] MEDS: ESCITALOPRAM OXALATE 20 MG TABLET (FP) PO SCH (12:22)
[2017-04-11] MEDS: MULTIVITAMINS (DAILY MVI) TABLET (FP) PO SCH (12:25)
[2017-04-11] MEDS: OLANZAPINE 2.5 MG, OLANZAPINE 5 MG PO SCH (12:25)
[2017-04-11] MEDS: ASCORBIC ACID 500 MG TABLET (FP) PO SCH ×2 (12:26→21:37)
[2017-04-11] MEDS: FERROUS SO4 325 MG TABLET (FP) PO SCH ×2 (12:26→21:37)
[2017-04-11] MEDS: SODIUM BICARBONATE 650 MG TABLET PO SCH ×2 (12:27→21:37)
[2017-04-11] MEDS: RANITIDINE HCL 150 MG TABLET (FP) PO SCH ×2 (12:28→21:37)
[2017-04-11] MEDS: PERPHENAZINE 2 MG TABLET PO SCH (12:29)
[2017-04-11] MEDS: NYSTATIN 100,000 UNIT/GM TOPICAL CREAM 15 GM TUBE TP SCH ×2 (12:40→21:39)
[2017-04-11] MEDS: VITAMINS A AND D TOPICAL OINTMENT 60 GM TUBE TP SCH ×2 (12:41→21:39)
[2017-04-11] MEDS: CILOSTAZOL 100 MG TABLET PO SCH (13:20)
--- NOTE | 2017-04-11 13:38 | PN ---
Progress Note, Physician Chief Complaint: Mr Reynoso says he is feeling fine today. No cp, sob, n/v. - Current Medication List Current Medications: Active Medications Acetaminophen (Tylenol -) 650 mg PO Q4H PRN PRN Reason: FEVER OR PAIN Albuterol Sulfate (Ventolin 0.083% Nebulizer Soln -) 1 amp NEB Q6H PRN PRN Reason: SHORT OF BREATH/WHEEZING Last Admin: 04/09/17 23:15 Dose: 1 amp Amlodipine Besylate (Norvasc -) 10 mg PO DAILY [facility] Last Admin: 04/11/17 11:32 Dose: 10 mg Amoxicillin/Clavulanate Potassium (Augmentin - 500mg Tablet) 1 tab PO BID@0800, 1730 [facility] Last Admin: 04/11/17 09:16 Dose: 1 tab Ascorbic Acid (Vitamin C -) 500 mg PO BID [facility] Last Admin: 04/11/17 12:26 Dose: 500 mg Cilostazol (Pletal -) 100 mg PO BID [facility] Last Admin: 04/11/17 13:20 Dose: 100 mg Clindamycin HCl (Cleocin -) 300 mg PO Q6HPO [facility] Last Admin: 04/11/17 12:22 Dose: 300 mg Docusate Sodium (Colace -) 100 mg PO BID [facility] Last Admin: 04/11/17 11:29 Dose: Not Given Escitalopram Oxalate (Lexapro -) 20 mg PO DAILY [facility] Last Admin: 04/11/17 12:22 Dose: 20 mg Ferrous Sulfate (Feosol -) 325 mg PO BID [facility] Last Admin: 04/11/17 12:26 Dose: 325 mg Furosemide (Lasix -) 40 mg PO DAILY [facility] Last Admin: 04/11/17 11:32 Dose: 40 mg Metoprolol Succinate (Toprol Xl -) 25 mg PO DAILY [facility] Last Admin: 04/11/17 11:33 Dose: 25 mg Multivitamins/Minerals/Vitamin C (Tab-A-Vit -) 1 tab PO DAILY [facility] Last Admin: 04/11/17 12:25 Dose: 1 tab Nystatin (Mycostatin Cream -) 1 applic TP BID [facility] Last Admin: 04/11/17 12:40 Dose: 1 applic Olanzapine 2.5 mg/ Olanzapine (5 mg) 7.5 mg PO DAILY [facility] Last Admin: 04/11/17 12:25 Dose: 7.5 mg Ondansetron HCl (Zofran Injection) 4 mg IVPB Q6H PRN PRN Reason: NAUSEA Perphenazine (Trilafon) 0.5 mg PO DAILY [facility] Last Admin: 04/11/17 12:29 Dose: 0.5 mg Polyethylene Glycol (Miralax (For Daily Use) -) 17 gm PO BID [facility] Last Admin: 04/11/17 11:30 Dose: Not Given Ranitidine HCl (Zantac -) 150 mg PO BID [facility] Last Admin: 04/11/17 12:28 Dose: 150 mg Sodium Bicarbonate (Sodium Bicarbonate -) 650 mg PO BID [facility] Last Admin: 04/11/17 12:27 Dose: 650 mg Tamsulosin HCl (Flomax -) 0.4 mg PO DAILY@829 [facility] Last Admin: 04/11/17 09:16 Dose: 0.4 mg Vitamin A/Vitamin D (Vitamin A & D Top Oint -) 1 applic TP BID [facility] Last Admin: 04/11/17 12:41 Dose: 1 applic - Objective Vital Signs: Vital Signs Temperature 36.4 C L 04/11/17 08:00 Pulse Rate 65 04/11/17 08:00 Respiratory Rate 22 04/11/17 08:00 Blood Pressure 136/63 04/11/17 08:00 O2 Sat by Pulse Oximetry (%) 95 04/10/17 21:00 Constitutional: Yes: Well Nourished, No Distress, Calm Cardiovascular: Yes: Regular Rate and Rhythm. No: Gallop, Murmur, Rub Respiratory: Yes: Regular, CTA Bilaterally. No: Rales, Rhonchi, Wheezes Gastrointestinal: Yes: Normal Bowel Sounds, Soft. No: Distention, Tenderness Extremities: Yes: WNL Edema: No Labs: CBC, BMP 04/11/17 07:40 04/11/17 07:40 Assessment/Plan 1. Cellulitis -appreciate ID assistance -continue clindamycin for full course 2. UTI -ID following -continue augmentin for full course 3. Hematuria -appreciate urology assistance -on cbi -plan for cystoscopy 4. Metabolic encephalopathy -at baseline 5. DAVID on CKD -at baseline -nephrology following 6. Dementia -continue home regimen 7. BPH -continue flomax -harris in place -urology consulted 8. Anemia -currently does not need transfusion
--- NOTE | 2017-04-11 14:42 | PN ---
Progress Note (short form) - Note Progress Note: Renal Follow up for SUZI/CKD pt seen and examined at the bedside harris in place with dark/bloody urine no sob, chest pain CBI started this am Vital Signs Temperature 97.5 F L 04/11/17 08:00 Pulse Rate 65 04/11/17 08:00 Respiratory Rate 22 04/11/17 08:00 Blood Pressure 136/63 04/11/17 08:00 O2 Sat by Pulse Oximetry (%) 95 04/10/17 21:00 Intake & Output 04/08/17 04/09/17 04/10/17 04/11/17 23:59 23:59 23:59 23:59 Intake Total 890 950 600 250 Output Total 1603 186 2125 400 Balance -310 50 -400 -150 Gen: NAD, awake and alert CVS: RRR, No M/R Lungs: CTA Abd: soft NT/ND Ext: No edema, clubbing or cyanosis Gu: CBI, harris in place CBC, BMP 04/11/17 07:40 04/11/17 07:40 Laboratory Tests 04/11/17 07:40 Calcium 9.1 Phosphorus 4.8 Magnesium 2.1 Current Medications Acetaminophen (Tylenol -) 650 mg PO Q4H PRN PRN Reason: FEVER OR PAIN Albuterol Sulfate (Ventolin 0.083% Nebulizer Soln -) 1 amp NEB Q6H PRN PRN Reason: SHORT OF BREATH/WHEEZING Last Admin: 04/09/17 23:15 Dose: 1 amp Amlodipine Besylate (Norvasc -) 10 mg PO DAILY [facility] Last Admin: 04/11/17 11:32 Dose: 10 mg Amoxicillin/Clavulanate Potassium (Augmentin - 500mg Tablet) 1 tab PO BID@0800, 1730 [facility] Last Admin: 04/11/17 09:16 Dose: 1 tab Ascorbic Acid (Vitamin C -) 500 mg PO BID [facility] Last Admin: 04/11/17 12:26 Dose: 500 mg Cilostazol (Pletal -) 100 mg PO BID [facility] Last Admin: 04/11/17 13:20 Dose: 100 mg Clindamycin HCl (Cleocin -) 300 mg PO Q6HPO [facility] Last Admin: 04/11/17 12:22 Dose: 300 mg Docusate Sodium (Colace -) 100 mg PO BID [facility] Last Admin: 04/11/17 11:29 Dose: Not Given Escitalopram Oxalate (Lexapro -) 20 mg PO DAILY [facility] Last Admin: 04/11/17 12:22 Dose: 20 mg Ferrous Sulfate (Feosol -) 325 mg PO BID [facility] Last Admin: 04/11/17 12:26 Dose: 325 mg Furosemide (Lasix -) 40 mg PO DAILY [facility] Last Admin: 04/11/17 11:32 Dose: 40 mg Metoprolol Succinate (Toprol Xl -) 25 mg PO DAILY [facility] Last Admin: 04/11/17 11:33 Dose: 25 mg Multivitamins/Minerals/Vitamin C (Tab-A-Vit -) 1 tab PO DAILY [facility] Last Admin: 04/11/17 12:25 Dose: 1 tab Nystatin (Mycostatin Cream -) 1 applic TP BID [facility] Last Admin: 04/11/17 12:40 Dose: 1 applic Olanzapine 2.5 mg/ Olanzapine (5 mg) 7.5 mg PO DAILY [facility] Last Admin: 04/11/17 12:25 Dose: 7.5 mg Ondansetron HCl (Zofran Injection) 4 mg IVPB Q6H PRN PRN Reason: NAUSEA Perphenazine (Trilafon) 0.5 mg PO DAILY [facility] Last Admin: 04/11/17 12:29 Dose: 0.5 mg Polyethylene Glycol (Miralax (For Daily Use) -) 17 gm PO BID [facility] Last Admin: 04/11/17 11:30 Dose: Not Given Ranitidine HCl (Zantac -) 150 mg PO BID [facility] Last Admin: 04/11/17 12:28 Dose: 150 mg Sodium Bicarbonate (Sodium Bicarbonate -) 650 mg PO BID [facility] Last Admin: 04/11/17 12:27 Dose: 650 mg Tamsulosin HCl (Flomax -) 0.4 mg PO DAILY@0830 [facility] Last Admin: 04/11/17 09:16 Dose: 0.4 mg Vitamin A/Vitamin D (Vitamin A & D Top Oint -) 1 applic TP BID [facility] Last Admin: 04/11/17 12:41 Dose: 1 applic A/P 86 year old Gentleman with PMhx of CKD (baseline 2.1-2.6), CHF, Anemia, GIB, Hyperlipidemia s/p recent admission for acute on chronic anemia who was readmitted from [place] with gross hematuria #Tramatic Hematuria Urology recommended cysto but unable to get consent from HCP continue CBI #SUZI on CKD Renal function stable at this time #Urinary retention continue Harris continue Flomax #Hypertension Continue amlodipine no DIPTI/ARB at this time #Anemia Trend CBC, transfuse for Hgb less then 7 iron studies pending if iron saturation > 25% can given BLAIRE #Hypernatremia encouraged oral hydration Thank you Will follow Teja Mercedes DO
[2017-04-12] MEDS: CLINDAMYCIN HCL 150 MG CAPSULE (FP) PO SCH ×3 (05:55→18:21)
[2017-04-12 06:06] LABS: SERUM IRON 24 ug/dL (38-169); TOTAL IRON BINDING CAPACITY 228 ug/dL (250-450); UIBC 204 ug/dL (111-343)
[2017-04-12] MEDS: TAMSULOSIN HCL 0.4 MG CAP.ER.24H (FP) PO SCH (08:04)
[2017-04-12] MEDS: AMOX TR/POT CLAV 500MG/125MG TABLETS (FP) PO SCH ×2 (08:04→18:21)
[2017-04-12 08:40] LABS: BASOPHIL 0.6 % (0-2.0); EOSINOPHIL 4.7 % (0-4.5); MCH 31.6 pg (25.7-33.7); MCHC 33.1 g/dl (32.0-35.9); MEAN CELL VOLUME 95.3 fl (80-96); MEAN PLT VOLUME 8.8 fl (7.5-11.1); NEUTROPHILS 83.5 % (42.8-82.8); PLATELET COUNT 237 K/MM3 (134-434); RDW 15.5 % (11.9-15.9); WHITE BLOOD COUNT 7.6 K/mm3 (4.0-10.0)
[2017-04-12 09:13] LABS: ANION GAP 9 (8-16); CALCIUM 8.7 mg/dL (8.5-10.1); CO2 23 mmol/L (21-32); GLUCOSE,RANDOM 87 mg/dL (74-106); MAGNESIUM 2.1 mg/dL (1.8-2.4); PHOSPHOROUS 4.3 mg/dL (2.5-4.9)
[2017-04-12] MEDS: FERROUS SO4 325 MG TABLET (FP) PO SCH ×2 (09:38→23:59)
[2017-04-12] MEDS: DOCUSATE SODIUM 100 MG CAPSULE (FP) PO SCH ×2 (09:38→23:59)
[2017-04-12] MEDS: SODIUM BICARBONATE 650 MG TABLET PO SCH (09:39)
[2017-04-12] MEDS: ESCITALOPRAM OXALATE 20 MG TABLET (FP) PO SCH (09:39)
[2017-04-12] MEDS: POLYETHYLENE GLYCOL 3350 119 GM BTL PO SCH ×2 (09:39→23:59)
[2017-04-12] MEDS: MULTIVITAMINS (DAILY MVI) TABLET (FP) PO SCH (09:39)
[2017-04-12] MEDS: RANITIDINE HCL 150 MG TABLET (FP) PO SCH (09:40)
[2017-04-12] MEDS: VITAMINS A AND D TOPICAL OINTMENT 60 GM TUBE TP SCH (09:40)
[2017-04-12] MEDS: PERPHENAZINE 2 MG TABLET PO SCH (09:40)
[2017-04-12] MEDS: ASCORBIC ACID 500 MG TABLET (FP) PO SCH (09:40)
[2017-04-12] MEDS ORDERED: PT OWN MED DRAWER 7, Y5N ONE (09:46)
[2017-04-12] MEDS: amLODIPine BESYLATE 10 MG TABLET (FP) PO SCH (09:53)
[2017-04-12] MEDS: METOPROLOL SUCCINATE 25 MG TAB.SR.24H (FP) PO SCH (09:53)
[2017-04-12] MEDS: OLANZAPINE 2.5 MG, OLANZAPINE 5 MG PO SCH (09:53)
[2017-04-12] MEDS: FUROSEMIDE 40 MG TABLET (FP) PO SCH (09:53)
[2017-04-12 09:58] LABS: ANISOCYTOSIS 1+; HYPOCHROMIA 1+; MACROCYTOSIS 1+; MICROCYTOSIS 1+; SPHEROCYTE 1+
--- NOTE | 2017-04-12 10:59 | PN ---
Progress Note, Physician Chief Complaint: Mr Reynoso is without complaint. No cp, sob, n/v - Current Medication List Current Medications: Active Medications Acetaminophen (Tylenol -) 650 mg PO Q4H PRN PRN Reason: FEVER OR PAIN Albuterol Sulfate (Ventolin 0.083% Nebulizer Soln -) 1 amp NEB Q6H PRN PRN Reason: SHORT OF BREATH/WHEEZING Last Admin: 04/09/17 23:15 Dose: 1 amp Amlodipine Besylate (Norvasc -) 10 mg PO DAILY [facility] Last Admin: 04/12/17 09:53 Dose: 10 mg Amoxicillin/Clavulanate Potassium (Augmentin - 500mg Tablet) 1 tab PO BID@0800, 1730 [facility] Last Admin: 04/12/17 08:04 Dose: 1 tab Ascorbic Acid (Vitamin C -) 500 mg PO BID [facility] Last Admin: 04/12/17 09:40 Dose: Not Given Clindamycin HCl (Cleocin -) 300 mg PO Q6HPO [facility] Last Admin: 04/12/17 05:55 Dose: Not Given Docusate Sodium (Colace -) 100 mg PO BID [facility] Last Admin: 04/12/17 09:38 Dose: Not Given Escitalopram Oxalate (Lexapro -) 20 mg PO DAILY [facility] Last Admin: 04/12/17 09:39 Dose: Not Given Ferrous Sulfate (Feosol -) 325 mg PO BID [facility] Last Admin: 04/12/17 09:38 Dose: Not Given Furosemide (Lasix -) 40 mg PO DAILY [facility] Last Admin: 04/12/17 09:53 Dose: 40 mg Furosemide (Lasix Injection -) 20 mg IVPUSH ONCE ONE Stop: 04/12/17 10:14 Metoprolol Succinate (Toprol Xl -) 25 mg PO DAILY [facility] Last Admin: 04/12/17 09:53 Dose: 25 mg Multivitamins/Minerals/Vitamin C (Tab-A-Vit -) 1 tab PO DAILY [facility] Last Admin: 04/12/17 09:39 Dose: Not Given Nystatin (Mycostatin Cream -) 1 applic TP BID [facility] Last Admin: 04/11/17 21:39 Dose: 1 applic Olanzapine 2.5 mg/ Olanzapine (5 mg) 7.5 mg PO DAILY [facility] Last Admin: 04/12/17 09:53 Dose: 7.5 mg Ondansetron HCl (Zofran Injection) 4 mg IVPB Q6H PRN PRN Reason: NAUSEA Perphenazine (Trilafon) 0.5 mg PO DAILY [facility] Last Admin: 04/12/17 09:40 Dose: Not Given Polyethylene Glycol (Miralax (For Daily Use) -) 17 gm PO BID [facility] Last Admin: 04/12/17 09:39 Dose: Not Given Ranitidine HCl (Zantac -) 150 mg PO BID [facility] Last Admin: 04/12/17 09:40 Dose: Not Given Sodium Bicarbonate (Sodium Bicarbonate -) 650 mg PO BID [facility] Last Admin: 04/12/17 09:39 Dose: Not Given Tamsulosin HCl (Flomax -) 0.4 mg PO DAILY@0830 [facility] Last Admin: 04/12/17 08:04 Dose: 0.4 mg Vitamin A/Vitamin D (Vitamin A & D Top Oint -) 1 applic TP BID [facility] Last Admin: 04/12/17 09:40 Dose: Not Given - Objective Vital Signs: Vital Signs Temperature 36.4 C L 04/12/17 09:23 Pulse Rate 64 04/12/17 09:23 Respiratory Rate 20 04/12/17 09:23 Blood Pressure 150/57 04/12/17 09:23 O2 Sat by Pulse Oximetry (%) 94 L 04/11/17 21:00 Constitutional: Yes: Well Nourished, No Distress, Calm Cardiovascular: Yes: Regular Rate and Rhythm. No: Gallop, Murmur, Rub Respiratory: Yes: Regular, CTA Bilaterally. No: Rales, Rhonchi, Wheezes Gastrointestinal: Yes: Normal Bowel Sounds, Soft. No: Distention, Tenderness Extremities: Yes: WNL Edema: No Labs: CBC, BMP 04/12/17 07:00 04/12/17 07:00 Assessment/Plan 1. Cellulitis -appreciate ID assistance -continue clindamycin for full course 2. UTI -ID following -continue augmentin for full course 3. Hematuria -appreciate urology assistance -on cbi -plan for cystoscopy today 4. Metabolic encephalopathy -at baseline 5. DAVID on CKD -at baseline -nephrology following 6. Dementia -continue home regimen 7. BPH -continue flomax -harirs in place -urology following 8. Anemia -transfuse 2 units -plan for IV iron tomorrow per nephrology
--- NOTE | 2017-04-12 11:21 | PN ---
Progress Note (short form) - Note Progress Note: I spoke with his securities attorney regarding the procedure. However the nursing staff and anesthesia cannot reach him for their consents.
--- NOTE | 2017-04-12 13:28 | PN ---
Progress Note, Physician History of Present Illness: events noted from yesterday patient was having hematuria foleys was changed consent needed for cystoscopy home service director has been contacted--he is not calling the hospital back to give consent multi[ple people cat tried to contact the home service director patient needs transfusion and cystoscopy - Current Medication List Current Medications: Active Medications Acetaminophen (Tylenol -) 650 mg PO Q4H PRN PRN Reason: FEVER OR PAIN Albuterol Sulfate (Ventolin 0.083% Nebulizer Soln -) 1 amp NEB Q6H PRN PRN Reason: SHORT OF BREATH/WHEEZING Last Admin: 04/09/17 23:15 Dose: 1 amp Amlodipine Besylate (Norvasc -) 10 mg PO DAILY [facility] Last Admin: 04/12/17 09:53 Dose: 10 mg Amoxicillin/Clavulanate Potassium (Augmentin - 500mg Tablet) 1 tab PO BID@0800, 1730 [facility] Last Admin: 04/12/17 08:04 Dose: 1 tab Ascorbic Acid (Vitamin C -) 500 mg PO BID [facility] Last Admin: 04/12/17 09:40 Dose: Not Given Clindamycin HCl (Cleocin -) 300 mg PO Q6HPO [facility] Last Admin: 04/12/17 12:12 Dose: Not Given Docusate Sodium (Colace -) 100 mg PO BID [facility] Last Admin: 04/12/17 09:38 Dose: Not Given Escitalopram Oxalate (Lexapro -) 20 mg PO DAILY [facility] Last Admin: 04/12/17 09:39 Dose: Not Given Ferrous Sulfate (Feosol -) 325 mg PO BID [facility] Last Admin: 04/12/17 09:38 Dose: Not Given Furosemide (Lasix -) 40 mg PO DAILY [facility] Last Admin: 04/12/17 09:53 Dose: 40 mg Metoprolol Succinate (Toprol Xl -) 25 mg PO DAILY [facility] Last Admin: 04/12/17 09:53 Dose: 25 mg Multivitamins/Minerals/Vitamin C (Tab-A-Vit -) 1 tab PO DAILY [facility] Last Admin: 04/12/17 09:39 Dose: Not Given Nystatin (Mycostatin Cream -) 1 applic TP BID [facility] Last Admin: 04/11/17 21:39 Dose: 1 applic Olanzapine 2.5 mg/ Olanzapine (5 mg) 7.5 mg PO DAILY [facility] Last Admin: 04/12/17 09:53 Dose: 7.5 mg Ondansetron HCl (Zofran Injection) 4 mg IVPB Q6H PRN PRN Reason: NAUSEA Perphenazine (Trilafon) 0.5 mg PO DAILY [facility] Last Admin: 04/12/17 09:40 Dose: Not Given Polyethylene Glycol (Miralax (For Daily Use) -) 17 gm PO BID [facility] Last Admin: 04/12/17 09:39 Dose: Not Given Ranitidine HCl (Zantac -) 150 mg PO BID [facility] Last Admin: 04/12/17 09:40 Dose: Not Given Sodium Bicarbonate (Sodium Bicarbonate -) 650 mg PO BID [facility] Last Admin: 04/12/17 09:39 Dose: Not Given Tamsulosin HCl (Flomax -) 0.4 mg PO DAILY@30 [facility] Last Admin: 04/12/17 08:04 Dose: 0.4 mg Vitamin A/Vitamin D (Vitamin A & D Top Oint -) 1 applic TP BID [facility] Last Admin: 04/12/17 09:40 Dose: Not Given - Objective Vital Signs: Vital Signs Temperature 97.5 F L 04/12/17 09:23 Pulse Rate 80 04/12/17 11:25 Respiratory Rate 20 04/12/17 09:23 Blood Pressure 150/57 04/12/17 09:23 O2 Sat by Pulse Oximetry (%) 91 L 04/12/17 11:25 Constitutional: Yes: No Distress, Calm Cardiovascular: Yes: Regular Rate and Rhythm Respiratory: Yes: Regular, CTA Bilaterally Gastrointestinal: Yes: Normal Bowel Sounds, Soft Genitourinary: Yes: Seay Present (3 way foleys) Musculoskeletal: Yes: Other Extremities: Yes: Other Neurological: Yes: Alert, Other Labs: CBC, BMP 04/12/17 07:00 04/12/17 07:00 Assessment/Plan uti hematuria cough cellulitis of the rt leg arf plan continue oral augmentin awaiting for the consent to proceed further patients h and h is becoming critically low his condition can be in danger if his home service director does not call back
--- NOTE | 2017-04-12 13:53 | PN ---
Progress Note (short form) - Note Progress Note: Renal Follow up for SUZI/CKD pt seen and examined at the bedside CBI in place harris bag still shows hematuria pt without any acute complaints. for possible cysto today Vital Signs Temperature 97.5 F L 04/12/17 09:23 Pulse Rate 80 04/12/17 11:25 Respiratory Rate 20 04/12/17 09:23 Blood Pressure 150/57 04/12/17 09:23 O2 Sat by Pulse Oximetry (%) 91 L 04/12/17 11:25 Intake & Output 04/09/17 04/10/17 04/11/17 04/12/17 23:59 23:59 23:59 23:59 Intake Total 279 239 0420 04412 Output Total 900 1000 67380 9400 Balance 50 -400 -8050 600 Gen: NAD, awake and alert CVS: RRR, No M/R Lungs: CTA Abd: soft NT/ND Ext: No edema, clubbing or cyanosis Gu: CBI, harris in place CBC, BMP 04/12/17 07:00 04/12/17 07:00 Current Medications Acetaminophen (Tylenol -) 650 mg PO Q4H PRN PRN Reason: FEVER OR PAIN Albuterol Sulfate (Ventolin 0.083% Nebulizer Soln -) 1 amp NEB Q6H PRN PRN Reason: SHORT OF BREATH/WHEEZING Last Admin: 04/09/17 23:15 Dose: 1 amp Amlodipine Besylate (Norvasc -) 10 mg PO DAILY [facility] Last Admin: 04/12/17 09:53 Dose: 10 mg Amoxicillin/Clavulanate Potassium (Augmentin - 500mg Tablet) 1 tab PO BID@0800, 1730 [facility] Last Admin: 04/12/17 08:04 Dose: 1 tab Ascorbic Acid (Vitamin C -) 500 mg PO BID [facility] Last Admin: 04/12/17 09:40 Dose: Not Given Clindamycin HCl (Cleocin -) 300 mg PO Q6HPO [facility] Last Admin: 04/12/17 12:12 Dose: Not Given Docusate Sodium (Colace -) 100 mg PO BID [facility] Last Admin: 04/12/17 09:38 Dose: Not Given Escitalopram Oxalate (Lexapro -) 20 mg PO DAILY [facility] Last Admin: 04/12/17 09:39 Dose: Not Given Ferrous Sulfate (Feosol -) 325 mg PO BID [facility] Last Admin: 04/12/17 09:38 Dose: Not Given Furosemide (Lasix -) 40 mg PO DAILY [facility] Last Admin: 04/12/17 09:53 Dose: 40 mg Metoprolol Succinate (Toprol Xl -) 25 mg PO DAILY [facility] Last Admin: 04/12/17 09:53 Dose: 25 mg Multivitamins/Minerals/Vitamin C (Tab-A-Vit -) 1 tab PO DAILY [facility] Last Admin: 04/12/17 09:39 Dose: Not Given Nystatin (Mycostatin Cream -) 1 applic TP BID [facility] Last Admin: 04/11/17 21:39 Dose: 1 applic Olanzapine 2.5 mg/ Olanzapine (5 mg) 7.5 mg PO DAILY [facility] Last Admin: 04/12/17 09:53 Dose: 7.5 mg Ondansetron HCl (Zofran Injection) 4 mg IVPB Q6H PRN PRN Reason: NAUSEA Perphenazine (Trilafon) 0.5 mg PO DAILY [facility] Last Admin: 04/12/17 09:40 Dose: Not Given Polyethylene Glycol (Miralax (For Daily Use) -) 17 gm PO BID [facility] Last Admin: 04/12/17 09:39 Dose: Not Given Ranitidine HCl (Zantac -) 150 mg PO BID [facility] Last Admin: 04/12/17 09:40 Dose: Not Given Sodium Bicarbonate (Sodium Bicarbonate -) 650 mg PO BID [facility] Last Admin: 04/12/17 09:39 Dose: Not Given Tamsulosin HCl (Flomax -) 0.4 mg PO DAILY@0830 [facility] Last Admin: 04/12/17 08:04 Dose: 0.4 mg Vitamin A/Vitamin D (Vitamin A & D Top Oint -) 1 applic TP BID [facility] Last Admin: 04/12/17 09:40 Dose: Not Given A/P 86 year old Gentleman with PMhx of CKD (baseline 2.1-2.6), CHF, Anemia, GIB, Hyperlipidemia s/p recent admission for acute on chronic anemia who was readmitted from [place] with gross hematuria #Tramatic Hematuria CBI in place cysto when consent obtained #SUZI on CKD Renal function stable at this time #Hypertension Continue amlodipine no DIPTI/ARB at this time #Anemia to get 1 prbc transfused today iron stores are low, will plan iron infusion tomorrow #Hypernatremia oral hydration as tolerated Teja Mercedes DO
[2017-04-12] MEDS: NYSTATIN 100,000 UNIT/GM TOPICAL CREAM 15 GM TUBE TP SCH ×2 (14:27→23:59)
[2017-04-12] MEDS ORDERED: FUROSEMIDE 40 MG/4 ML INJECTABLE VIAL IVPUSH ONE (20:30)
[2017-04-12] MEDS: FUROSEMIDE 40 MG/4 ML INJECTABLE VIAL IVPUSH ONE ×2 (20:31→20:39)
[2017-04-12] MEDS: ALBUTEROL SO4 0.083% IH SOL 2.5 MG/3 ML VIAL.NEB. NEB PRN (21:55)
[2017-04-13] MEDS: CLINDAMYCIN HCL 150 MG CAPSULE (FP) PO SCH ×5 (06:26→23:08)
[2017-04-13 07:36] LABS: BASOPHIL 0.9 % (0-2.0); EOSINOPHIL 1.6 % (0-4.5); MCH 31.2 pg (25.7-33.7); MCHC 33.9 g/dl (32.0-35.9); MEAN CELL VOLUME 92.2 fl (80-96); MEAN PLT VOLUME 8.8 fl (7.5-11.1); NEUTROPHILS 87.2 % (42.8-82.8); PLATELET COUNT 298 K/MM3 (134-434); RDW 15.2 % (11.9-15.9); WHITE BLOOD COUNT 11.1 K/mm3 (4.0-10.0)
[2017-04-13 07:53] LABS: ANION GAP 12 (8-16); CALCIUM 8.8 mg/dL (8.5-10.1); CO2 23 mmol/L (21-32); CREATININE 2.7 mg/dL (0.7-1.3); GLUCOSE,RANDOM 100 mg/dL (74-106); PHOSPHOROUS 4.5 mg/dL (2.5-4.9)
[2017-04-13] MEDS ORDERED: PT OWN MED DRAWER 7, Y5N ONE (08:56)
[2017-04-13] MEDS: POLYETHYLENE GLYCOL 3350 119 GM BTL PO SCH ×2 (09:22→21:49)
[2017-04-13] MEDS: DOCUSATE SODIUM 100 MG CAPSULE (FP) PO SCH ×2 (09:22→21:47)
[2017-04-13] MEDS: AMOX TR/POT CLAV 500MG/125MG TABLETS (FP) PO SCH ×2 (09:23→17:25)
[2017-04-13] MEDS: FUROSEMIDE 40 MG TABLET (FP) PO SCH (09:23)
[2017-04-13] MEDS: METOPROLOL SUCCINATE 25 MG TAB.SR.24H (FP) PO SCH (09:23)
[2017-04-13] MEDS: ESCITALOPRAM OXALATE 20 MG TABLET (FP) PO SCH (09:23)
[2017-04-13] MEDS: TAMSULOSIN HCL 0.4 MG CAP.ER.24H (FP) PO SCH (09:23)
[2017-04-13] MEDS: RANITIDINE HCL 150 MG TABLET (FP) PO SCH ×3 (09:23→21:50)
[2017-04-13] MEDS: OLANZAPINE 2.5 MG, OLANZAPINE 5 MG PO SCH (09:24)
[2017-04-13] MEDS: FERROUS SO4 325 MG TABLET (FP) PO SCH ×2 (09:24→21:47)
[2017-04-13] MEDS: MULTIVITAMINS (DAILY MVI) TABLET (FP) PO SCH (09:24)
[2017-04-13] MEDS: SODIUM BICARBONATE 650 MG TABLET PO SCH ×3 (09:24→21:49)
[2017-04-13] MEDS: PERPHENAZINE 2 MG TABLET PO SCH (09:24)
[2017-04-13] MEDS: amLODIPine BESYLATE 10 MG TABLET (FP) PO SCH (09:27)
[2017-04-13] MEDS: ASCORBIC ACID 500 MG TABLET (FP) PO SCH ×3 (09:27→21:49)
[2017-04-13] MEDS: NYSTATIN 100,000 UNIT/GM TOPICAL CREAM 15 GM TUBE TP SCH ×2 (09:32→21:52)
[2017-04-13] MEDS: VITAMINS A AND D TOPICAL OINTMENT 60 GM TUBE TP SCH ×3 (09:32→21:52)
--- NOTE | 2017-04-13 14:16 | PN ---
Progress Note, Physician History of Present Illness: patient calm sitting in chair foleys urine looks clean did not get cystoscopy - Current Medication List Current Medications: Active Medications Acetaminophen (Tylenol -) 650 mg PO Q4H PRN PRN Reason: FEVER OR PAIN Amlodipine Besylate (Norvasc -) 10 mg PO DAILY [facility] Last Admin: 04/13/17 09:27 Dose: 10 mg Amoxicillin/Clavulanate Potassium (Augmentin - 500mg Tablet) 1 tab PO BID@0800, 1730 [facility] Last Admin: 04/13/17 09:23 Dose: 1 tab Ascorbic Acid (Vitamin C -) 500 mg PO BID [facility] Last Admin: 04/13/17 09:27 Dose: 500 mg Clindamycin HCl (Cleocin -) 300 mg PO Q6HPO [facility] Last Admin: 04/13/17 11:43 Dose: 300 mg Docusate Sodium (Colace -) 100 mg PO BID [facility] Last Admin: 04/13/17 09:22 Dose: Not Given Escitalopram Oxalate (Lexapro -) 20 mg PO DAILY [facility] Last Admin: 04/13/17 09:23 Dose: 20 mg Ferrous Sulfate (Feosol -) 325 mg PO BID [facility] Last Admin: 04/13/17 09:24 Dose: 325 mg Furosemide (Lasix -) 40 mg PO DAILY [facility] Last Admin: 04/13/17 09:23 Dose: 40 mg Metoprolol Succinate (Toprol Xl -) 25 mg PO DAILY [facility] Last Admin: 04/13/17 09:23 Dose: 25 mg Multivitamins/Minerals/Vitamin C (Tab-A-Vit -) 1 tab PO DAILY [facility] Last Admin: 04/13/17 09:24 Dose: 1 tab Nystatin (Mycostatin Cream -) 1 applic TP BID [facility] Last Admin: 04/13/17 09:32 Dose: 1 applic Olanzapine 2.5 mg/ Olanzapine (5 mg) 7.5 mg PO DAILY [facility] Last Admin: 04/13/17 09:24 Dose: 7.5 mg Ondansetron HCl (Zofran Injection) 4 mg IVPB Q6H PRN PRN Reason: NAUSEA Perphenazine (Trilafon) 0.5 mg PO DAILY [facility] Last Admin: 04/13/17 09:24 Dose: 0.5 mg Polyethylene Glycol (Miralax (For Daily Use) -) 17 gm PO BID [facility] Last Admin: 04/13/17 09:22 Dose: Not Given Ranitidine HCl (Zantac -) 150 mg PO BID [facility] Last Admin: 04/13/17 09:23 Dose: 150 mg Sodium Bicarbonate (Sodium Bicarbonate -) 650 mg PO BID [facility] Last Admin: 04/13/17 09:24 Dose: 650 mg Tamsulosin HCl (Flomax -) 0.4 mg PO DAILY@0830 [facility] Last Admin: 04/13/17 09:23 Dose: 0.4 mg Vitamin A/Vitamin D (Vitamin A & D Top Oint -) 1 applic TP BID [facility] Last Admin: 04/13/17 09:32 Dose: 1 applic - Objective Vital Signs: Vital Signs Temperature 98.2 F 04/13/17 14:00 Pulse Rate 66 04/13/17 14:00 Respiratory Rate 20 04/13/17 14:00 Blood Pressure 125/60 04/13/17 14:00 O2 Sat by Pulse Oximetry (%) 92 L 04/13/17 11:12 Constitutional: Yes: No Distress, Calm Cardiovascular: Yes: Regular Rate and Rhythm Respiratory: Yes: Regular, CTA Bilaterally Gastrointestinal: Yes: Normal Bowel Sounds, Soft Musculoskeletal: Yes: Other Extremities: Yes: Other Neurological: Yes: Alert, Other Psychiatric: Yes: Alert, Other Labs: CBC, BMP 04/13/17 06:30 04/13/17 06:30 Assessment/Plan uti hematuria cough cellulitis of the rt leg arf plan continue current mgmt h and h improved nutrition rest as per primary
--- NOTE | 2017-04-13 14:48 | PN ---
Progress Note (short form) - Note Progress Note: Renal Follow up for SUZI/CKD pt seen and examined in the hallway no acute complaints CBI in place with persistent hematuria denies any sob, chest pain, abd pain, N/V/D Vital Signs Temperature 98.2 F 04/13/17 14:00 Pulse Rate 66 04/13/17 14:00 Respiratory Rate 20 04/13/17 14:00 Blood Pressure 125/60 04/13/17 14:00 O2 Sat by Pulse Oximetry (%) 92 L 04/13/17 11:12 Intake & Output 04/10/17 04/11/17 04/12/17 04/13/17 23:59 23:59 23:59 23:59 Intake Total 600 6550 41232 6340 Output Total 1000 80421 41937 46349 Balance -400 -8050 -1470 -5460 Gen: NAD, awake and alert CVS: RRR, No M/R Lungs: CTA Abd: soft NT/ND Ext: No edema, clubbing or cyanosis Gu: CBI, harris in place CBC, BMP 04/13/17 06:30 04/13/17 06:30 Current Medications Acetaminophen (Tylenol -) 650 mg PO Q4H PRN PRN Reason: FEVER OR PAIN Amlodipine Besylate (Norvasc -) 10 mg PO DAILY [facility] Last Admin: 04/13/17 09:27 Dose: 10 mg Amoxicillin/Clavulanate Potassium (Augmentin - 500mg Tablet) 1 tab PO BID@0800, 1730 [facility] Last Admin: 04/13/17 09:23 Dose: 1 tab Ascorbic Acid (Vitamin C -) 500 mg PO BID [facility] Last Admin: 04/13/17 09:27 Dose: 500 mg Clindamycin HCl (Cleocin -) 300 mg PO Q6HPO [facility] Last Admin: 04/13/17 11:43 Dose: 300 mg Docusate Sodium (Colace -) 100 mg PO BID [facility] Last Admin: 04/13/17 09:22 Dose: Not Given Escitalopram Oxalate (Lexapro -) 20 mg PO DAILY [facility] Last Admin: 04/13/17 09:23 Dose: 20 mg Ferrous Sulfate (Feosol -) 325 mg PO BID [facility] Last Admin: 04/13/17 09:24 Dose: 325 mg Furosemide (Lasix -) 40 mg PO DAILY [facility] Last Admin: 04/13/17 09:23 Dose: 40 mg Metoprolol Succinate (Toprol Xl -) 25 mg PO DAILY [facility] Last Admin: 04/13/17 09:23 Dose: 25 mg Multivitamins/Minerals/Vitamin C (Tab-A-Vit -) 1 tab PO DAILY [facility] Last Admin: 04/13/17 09:24 Dose: 1 tab Nystatin (Mycostatin Cream -) 1 applic TP BID [facility] Last Admin: 04/13/17 09:32 Dose: 1 applic Olanzapine 2.5 mg/ Olanzapine (5 mg) 7.5 mg PO DAILY [facility] Last Admin: 04/13/17 09:24 Dose: 7.5 mg Ondansetron HCl (Zofran Injection) 4 mg IVPB Q6H PRN PRN Reason: NAUSEA Perphenazine (Trilafon) 0.5 mg PO DAILY [facility] Last Admin: 04/13/17 09:24 Dose: 0.5 mg Polyethylene Glycol (Miralax (For Daily Use) -) 17 gm PO BID [facility] Last Admin: 04/13/17 09:22 Dose: Not Given Ranitidine HCl (Zantac -) 150 mg PO BID [facility] Last Admin: 04/13/17 09:23 Dose: 150 mg Sodium Bicarbonate (Sodium Bicarbonate -) 650 mg PO BID [facility] Last Admin: 04/13/17 09:24 Dose: 650 mg Tamsulosin HCl (Flomax -) 0.4 mg PO DAILY@0830 [facility] Last Admin: 04/13/17 09:23 Dose: 0.4 mg Vitamin A/Vitamin D (Vitamin A & D Top Oint -) 1 applic TP BID [facility] Last Admin: 04/13/17 09:32 Dose: 1 applic A/P 86 year old Gentleman with PMhx of CKD (baseline 2.1-2.6), CHF, Anemia, GIB, Hyperlipidemia s/p recent admission for acute on chronic anemia who was read[place] from [place] with gross hematuria #Hematuria CBI in place, Urology follow up #SUZI on CKD Renal function stable continue oral lasix daily trend BUN/Cr and electrolytes #Hypertension Continue amlodipine no DIPTI/ARB at this time #Anemia s/p prbc transfusion with good response will give Venofer 100mg IV x 1 now #Hypernatremia oral hydration as tolerated Teja Mercedes DO
[2017-04-13] MEDS ORDERED: IRON SUCROSE INJECTION 100 MG in SODIUM CHLORIDE 95 ML IVPB ONE (15:15)
--- NOTE | 2017-04-13 16:38 | PN ---
Progress Note, Physician Chief Complaint: Mr Reynoso is without complaint. No cp, sob, n/v - Current Medication List Current Medications: Active Medications Acetaminophen (Tylenol -) 650 mg PO Q4H PRN PRN Reason: FEVER OR PAIN Amlodipine Besylate (Norvasc -) 10 mg PO DAILY [facility] Last Admin: 04/13/17 09:27 Dose: 10 mg Amoxicillin/Clavulanate Potassium (Augmentin - 500mg Tablet) 1 tab PO BID@0800, 1730 [facility] Last Admin: 04/13/17 09:23 Dose: 1 tab Ascorbic Acid (Vitamin C -) 500 mg PO BID [facility] Last Admin: 04/13/17 09:27 Dose: 500 mg Clindamycin HCl (Cleocin -) 300 mg PO Q6HPO [facility] Last Admin: 04/13/17 11:43 Dose: 300 mg Docusate Sodium (Colace -) 100 mg PO BID [facility] Last Admin: 04/13/17 09:22 Dose: Not Given Escitalopram Oxalate (Lexapro -) 20 mg PO DAILY [facility] Last Admin: 04/13/17 09:23 Dose: 20 mg Ferrous Sulfate (Feosol -) 325 mg PO BID [facility] Last Admin: 04/13/17 09:24 Dose: 325 mg Furosemide (Lasix -) 40 mg PO DAILY [facility] Last Admin: 04/13/17 09:23 Dose: 40 mg Metoprolol Succinate (Toprol Xl -) 25 mg PO DAILY [facility] Last Admin: 04/13/17 09:23 Dose: 25 mg Multivitamins/Minerals/Vitamin C (Tab-A-Vit -) 1 tab PO DAILY [facility] Last Admin: 04/13/17 09:24 Dose: 1 tab Nystatin (Mycostatin Cream -) 1 applic TP BID [facility] Last Admin: 04/13/17 09:32 Dose: 1 applic Olanzapine 2.5 mg/ Olanzapine (5 mg) 7.5 mg PO DAILY [facility] Last Admin: 04/13/17 09:24 Dose: 7.5 mg Ondansetron HCl (Zofran Injection) 4 mg IVPB Q6H PRN PRN Reason: NAUSEA Perphenazine (Trilafon) 0.5 mg PO DAILY [facility] Last Admin: 04/13/17 09:24 Dose: 0.5 mg Polyethylene Glycol (Miralax (For Daily Use) -) 17 gm PO BID [facility] Last Admin: 04/13/17 09:22 Dose: Not Given Ranitidine HCl (Zantac -) 150 mg PO BID [facility] Last Admin: 04/13/17 09:23 Dose: 150 mg Sodium Bicarbonate (Sodium Bicarbonate -) 650 mg PO BID [facility] Last Admin: 04/13/17 09:24 Dose: 650 mg Tamsulosin HCl (Flomax -) 0.4 mg PO DAILY@0830 [facility] Last Admin: 04/13/17 09:23 Dose: 0.4 mg Vitamin A/Vitamin D (Vitamin A & D Top Oint -) 1 applic TP BID [facility] Last Admin: 04/13/17 09:32 Dose: 1 applic - Objective Vital Signs: Vital Signs Temperature 36.8 C 04/13/17 14:00 Pulse Rate 66 04/13/17 14:00 Respiratory Rate 20 04/13/17 14:00 Blood Pressure 125/60 04/13/17 14:00 O2 Sat by Pulse Oximetry (%) 92 L 04/13/17 11:12 Constitutional: Yes: Well Nourished, No Distress, Calm Cardiovascular: Yes: Regular Rate and Rhythm. No: Gallop, Murmur, Rub Respiratory: Yes: Regular, CTA Bilaterally. No: Rales, Rhonchi, Wheezes Gastrointestinal: Yes: Normal Bowel Sounds, Soft. No: Distention, Tenderness Extremities: Yes: WNL Edema: No Labs: CBC, BMP 04/13/17 06:30 04/13/17 06:30 Assessment/Plan 1. Cellulitis -appreciate ID assistance -continue clindamycin for full course 2. UTI -ID following -continue augmentin for full course 3. Hematuria -urology following -planned for cystoscopy, awaiting urology 4. Metabolic encephalopathy -at baseline 5. DAVID on CKD -at baseline -nephrology following 6. Dementia -continue home regimen 7. BPH -continue flomax -harris in place -urology following 8. Anemia -good response to transfusion -iron infusion per nephrology -continue oral iron
[2017-04-14] MEDS: CLINDAMYCIN HCL 150 MG CAPSULE (FP) PO SCH ×4 (05:48→23:01)
[2017-04-14] MEDS: TAMSULOSIN HCL 0.4 MG CAP.ER.24H (FP) PO SCH (08:13)
[2017-04-14] MEDS: AMOX TR/POT CLAV 500MG/125MG TABLETS (FP) PO SCH ×2 (08:13→18:06)
[2017-04-14] MEDS ORDERED: LEVOFLOXACIN 500 MG PREMIX BAG IVPB ONE (08:25)
[2017-04-14] MEDS ORDERED: MIDAZOLAM HCL 2 MG/2 ML SINGLE DOSE VIAL ONE (08:26)
--- NOTE | 2017-04-14 08:29 | PN ---
Progress Note (short form) - Note Progress Note: urology. 86 y/o male with gross, total,painless hematuria pt. needed blood transfusion last night still anemic,still with gross hematuria. consent signed last night pt. will need intervention mali due to holiday weekend it is not feasible to wait until Sunday
[2017-04-14] MEDS ORDERED: ceFAZolin SODIUM 1 GM VIAL ONE (08:33)
[2017-04-14] MEDS ORDERED: LEVOFLOXACIN 500 MG IVPB 100 ML IVPB ONE (08:33)
[2017-04-14 08:41] LABS: BASOPHIL 0.6 % (0-2.0); MCH 31.5 pg (25.7-33.7); MCHC 33.9 g/dl (32.0-35.9); MEAN CELL VOLUME 92.9 fl (80-96); MEAN PLT VOLUME 8.6 fl (7.5-11.1); NEUTROPHILS 77.2 % (42.8-82.8); PLATELET COUNT 270 K/MM3 (134-434); RDW 15.5 % (11.9-15.9); WHITE BLOOD COUNT 7.1 K/mm3 (4.0-10.0)
[2017-04-14] MEDS ORDERED: HYDROmorphone HCL CARPU-JECT 2 MG/1 ML DISP.SYRIN IM PRN (08:51)
[2017-04-14] MEDS ORDERED: ceFAZolin SODIUM 1 GM VIAL IVPB ONE (09:00)
[2017-04-14 09:20] LABS: ANION GAP 6 (8-16); CALCIUM 8.7 mg/dL (8.5-10.1); CO2 28 mmol/L (21-32); GLUCOSE,RANDOM 84 mg/dL (74-106)
[2017-04-14 09:23] LABS: CREATININE 2.4 mg/dL (0.7-1.3); PHOSPHOROUS 3.7 mg/dL (2.5-4.9)
--- NOTE | 2017-04-14 09:26 | CONS ---
DATE OF CONSULTATION: 04/13/2017 HISTORY: He is presently an 86-year-old male admitted via the emergency room with gross total painless hematuria and clot retention. He also has a history of high blood pressure, congestive heart failure, depression, schizophrenia, chronic kidney disease, anemia. He is a resident of [facility]. He developed hematuria in the past, and a Seay catheter was placed. The patient accidentally removed the Seay catheter recently because it was hurting his leg. He is a poor historian. Again, he presents with gross hematuria. He has undergone a cholecystectomy, colonoscopy, cecal AVM cauterization. He also had a small valve tumor, which was resected, tonsillectomy, upper endoscopy, and excision of a gastric fundal polyp in the past. SOCIAL HISTORY: He denies any ethanol or tobacco use. ALLERGIES: He denies any allergies. MEDICATIONS: He is on multiple medications including Norvasc, Tylenol, vitamin C, Colace, Lexapro, iron, Lasix, metoprolol, proton pump inhibitor, Trilafon, vitamin A and B ointment, Zantac, and Flomax. PHYSICAL EXAMINATION: GENERAL: Presently the patient does not appear to be in any distress. He is confused as to time, place, and person. ABDOMEN: Soft. GENITOURINARY: He has got a 3-way Seay with continuous bladder irrigation. The return is pink. LABORATORY DATA: The patient's latest laboratory data revealed a hemoglobin of 6.8, hematocrit 20. Patient was given 1 unit of packed red blood cells and that raised the hemoglobin to 9.6 and the hematocrit to 28.3. His white count is 11,100. His platelets are 298. His BUN and creatinine have always been between 2.7 and 3 for creatinine and between 63-68 for the BUN. Random glucose is in the 80s. His total iron binding capacity and iron saturation are all low. Urinalysis revealed 3+ blood as well as negative nitrates. A urine culture grew out Streptococcus agalactiae group A. The patient does not have the mental capacity to sign a consent; therefore, his traffic law attorney, who is his guardian, signed a consent for the patient. The patient is presently bleeding. Therefore, it is recommended that he undergo intervention as soon as possible. Since a long weekend is coming up, we will perform procedure on Sunday. GERRY MILLER M.D. [id number]
--- NOTE | 2017-04-14 10:13 | OP ---
Operative Note - Note: Operative Date: 04/14/17 Pre-Operative Diagnosis: clot retention bph with bleeding prostate and obstruction of prostate Operation: cysto with clot evacuation and tuvp/turp Findings: large clots in bladder obst. prostate with bleeding Post-Operative Diagnosis: Same as Pre-op Surgeon: Ron Howard Anesthesia: General Specimens Removed: blood clots prostate tissue Estimated Blood Loss (mls): 50 Drains & Tubes with Location: 24f 30cc 3way harris Drains, Volume Out (mls): 0 Blood Volume Replaced (mls): 0 Fluid Volume Replaced (mls): 0 Operative Report Dictated: Yes
--- NOTE | 2017-04-14 10:14 | PN ---
Progress Note (short form) - Note Progress Note: urology. 86m gross Total Painless Hematuria requiring blood transfusion late lastnight/ early am, taken to OR for control of bleeding (consent obtained ), will need stat cysto
--- NOTE | 2017-04-14 10:43 | PN ---
Progress Note, Physician History of Present Illness: Just received cysto this morning. Now has CBI running. Not answering questions currently (dementia). - Current Medication List Current Medications: Active Medications Acetaminophen (Tylenol -) 650 mg PO Q4H PRN PRN Reason: FEVER OR PAIN Amlodipine Besylate (Norvasc -) 10 mg PO DAILY [facility] Last Admin: 04/13/17 09:27 Dose: 10 mg Amoxicillin/Clavulanate Potassium (Augmentin - 500mg Tablet) 1 tab PO BID@0800, 1730 [facility] Last Admin: 04/14/17 08:13 Dose: Not Given Ascorbic Acid (Vitamin C -) 500 mg PO BID [facility] Last Admin: 04/13/17 21:49 Dose: 500 mg Clindamycin HCl (Cleocin -) 300 mg PO Q6HPO [facility] Last Admin: 04/14/17 05:48 Dose: Not Given Docusate Sodium (Colace -) 100 mg PO BID [facility] Last Admin: 04/13/17 21:47 Dose: 100 mg Escitalopram Oxalate (Lexapro -) 20 mg PO DAILY [facility] Last Admin: 04/13/17 09:23 Dose: 20 mg Fentanyl (Sublimaze Injection -) 50 mcg IVPUSH [id number] PRN PRN Reason: PAIN Stop: 04/17/17 08:20 Ferrous Sulfate (Feosol -) 325 mg PO BID [facility] Last Admin: 04/13/17 21:47 Dose: 325 mg Furosemide (Lasix -) 40 mg PO DAILY [facility] Last Admin: 04/13/17 09:23 Dose: 40 mg Hydromorphone HCl (Dilaudid Injection -) 2 mg IM Q4H PRN PRN Reason: PAIN Metoprolol Succinate (Toprol Xl -) 25 mg PO DAILY [facility] Last Admin: 04/13/17 09:23 Dose: 25 mg Multivitamins/Minerals/Vitamin C (Tab-A-Vit -) 1 tab PO DAILY [facility] Last Admin: 04/13/17 09:24 Dose: 1 tab Nystatin (Mycostatin Cream -) 1 applic TP BID [facility] Last Admin: 04/13/17 21:52 Dose: 1 applic Olanzapine 2.5 mg/ Olanzapine (5 mg) 7.5 mg PO DAILY [facility] Last Admin: 04/13/17 09:24 Dose: 7.5 mg Ondansetron HCl (Zofran Injection) 4 mg IVPB Q6H PRN PRN Reason: NAUSEA Perphenazine (Trilafon) 0.5 mg PO DAILY [facility] Last Admin: 04/13/17 09:24 Dose: 0.5 mg Polyethylene Glycol (Miralax (For Daily Use) -) 17 gm PO BID [facility] Last Admin: 04/13/17 21:49 Dose: 17 gm Ranitidine HCl (Zantac -) 150 mg PO BID [facility] Last Admin: 04/13/17 21:50 Dose: 150 mg Sodium Bicarbonate (Sodium Bicarbonate -) 650 mg PO BID [facility] Last Admin: 04/13/17 21:49 Dose: 650 mg Tamsulosin HCl (Flomax -) 0.4 mg PO DAILY@0830 [facility] Last Admin: 04/14/17 08:13 Dose: Not Given Vitamin A/Vitamin D (Vitamin A & D Top Oint -) 1 applic TP BID [facility] Last Admin: 04/13/17 21:52 Dose: 1 applic - Objective Vital Signs: Vital Signs Temperature 97.4 F L 04/14/17 07:54 Pulse Rate 58 L 04/14/17 07:54 Respiratory Rate 18 04/14/17 07:54 Blood Pressure 153/68 04/14/17 07:54 O2 Sat by Pulse Oximetry (%) 92 L 04/13/17 21:00 Constitutional: Yes: No Distress, Calm Cardiovascular: Yes: Regular Rate and Rhythm, S1, S2. No: Murmur Respiratory: Yes: Regular, CTA Bilaterally. No: Rales, Rhonchi, Wheezes Gastrointestinal: Yes: Normal Bowel Sounds, Soft. No: Distention, Tenderness Genitourinary: Yes: Seay Present Edema: No Neurological: Yes: Confusion Labs: CBC, BMP 04/14/17 07:00 04/14/17 07:00 Assessment/Plan Current Active Problems Cellulitis of leg, right (Acute) UTI Gross hematuria (Acute) BPH Dementia Anemia -urology following on CBI now -vaporization of prostate also done with cysto
--- NOTE | 2017-04-14 11:41 | PN ---
Progress Note, Physician Chief Complaint: 86 male with dementia with painless hematuria, had cystoscopy this morning. The patient seen postop. HaD clot retention, BPH and bleeding prostate with obstruction of prostate Clot evacuation was done tuvp/turp - Current Medication List Current Medications: Active Medications Acetaminophen (Tylenol -) 650 mg PO Q4H PRN PRN Reason: FEVER OR PAIN Amlodipine Besylate (Norvasc -) 10 mg PO DAILY [facility] Last Admin: 04/13/17 09:27 Dose: 10 mg Amoxicillin/Clavulanate Potassium (Augmentin - 500mg Tablet) 1 tab PO BID@0800, 1730 [facility] Last Admin: 04/14/17 08:13 Dose: Not Given Ascorbic Acid (Vitamin C -) 500 mg PO BID [facility] Last Admin: 04/13/17 21:49 Dose: 500 mg Clindamycin HCl (Cleocin -) 300 mg PO Q6HPO [facility] Last Admin: 04/14/17 05:48 Dose: Not Given Docusate Sodium (Colace -) 100 mg PO BID [facility] Last Admin: 04/13/17 21:47 Dose: 100 mg Escitalopram Oxalate (Lexapro -) 20 mg PO DAILY [facility] Last Admin: 04/13/17 09:23 Dose: 20 mg Ferrous Sulfate (Feosol -) 325 mg PO BID [facility] Last Admin: 04/13/17 21:47 Dose: 325 mg Furosemide (Lasix -) 40 mg PO DAILY [facility] Last Admin: 04/13/17 09:23 Dose: 40 mg Hydromorphone HCl (Dilaudid Injection -) 2 mg IM Q4H PRN PRN Reason: PAIN Metoprolol Succinate (Toprol Xl -) 25 mg PO DAILY [facility] Last Admin: 04/13/17 09:23 Dose: 25 mg Multivitamins/Minerals/Vitamin C (Tab-A-Vit -) 1 tab PO DAILY [facility] Last Admin: 04/13/17 09:24 Dose: 1 tab Nystatin (Mycostatin Cream -) 1 applic TP BID [facility] Last Admin: 04/13/17 21:52 Dose: 1 applic Olanzapine 2.5 mg/ Olanzapine (5 mg) 7.5 mg PO DAILY [facility] Last Admin: 04/13/17 09:24 Dose: 7.5 mg Ondansetron HCl (Zofran Injection) 4 mg IVPB Q6H PRN PRN Reason: NAUSEA Perphenazine (Trilafon) 0.5 mg PO DAILY [facility] Last Admin: 04/13/17 09:24 Dose: 0.5 mg Polyethylene Glycol (Miralax (For Daily Use) -) 17 gm PO BID [facility] Last Admin: 04/13/17 21:49 Dose: 17 gm Ranitidine HCl (Zantac -) 150 mg PO BID [facility] Last Admin: 04/13/17 21:50 Dose: 150 mg Sodium Bicarbonate (Sodium Bicarbonate -) 650 mg PO BID [facility] Last Admin: 04/13/17 21:49 Dose: 650 mg Tamsulosin HCl (Flomax -) 0.4 mg PO DAILY@0830 [facility] Last Admin: 04/14/17 08:13 Dose: Not Given Vitamin A/Vitamin D (Vitamin A & D Top Oint -) 1 applic TP BID [facility] Last Admin: 04/13/17 21:52 Dose: 1 applic - Objective Vital Signs: Vital Signs Temperature 98 F 04/14/17 10:13 Pulse Rate 45 L 04/14/17 11:15 Respiratory Rate 18 04/14/17 11:15 Blood Pressure 123/56 04/14/17 11:15 O2 Sat by Pulse Oximetry (%) 98 04/14/17 11:15 Neck: Yes: Supple Cardiovascular: Yes: S1, S2 Respiratory: Yes: Regular, CTA Bilaterally Gastrointestinal: Yes: Normal Bowel Sounds, Soft Neurological: Yes: Lethargy Labs: CBC, BMP 04/14/17 07:00 04/14/17 07:00 Assessment/Plan 86 y/o male who underwent Cystoscopy this morning. Findings as noted above. CBI to continue. The patient has blood loss anemia and may require PRBC transfusion if the Hgb gets any lower, given his advanced age and multiple co-morbid conditions. The patient has h/o CKD3, with superimposed Acute Renal failure. Azotemia seems to be slowly improving. Tendency for Hypernatremia. The patient is on Sodium Bicarb, and his Serum Bicar is now 28. Will D/c supplements. Will monitor the renal functions closely.
[2017-04-14] MEDS ORDERED: PT OWN MED DRAWER 7, Y5N ONE (14:15)
[2017-04-14] MEDS: METOPROLOL SUCCINATE 25 MG TAB.SR.24H (FP) PO SCH (14:17)
[2017-04-14] MEDS: RANITIDINE HCL 150 MG TABLET (FP) PO SCH ×2 (14:17→21:33)
[2017-04-14] MEDS: FUROSEMIDE 40 MG TABLET (FP) PO SCH (14:18)
[2017-04-14] MEDS: MULTIVITAMINS (DAILY MVI) TABLET (FP) PO SCH (14:18)
[2017-04-14] MEDS: amLODIPine BESYLATE 10 MG TABLET (FP) PO SCH (14:18)
[2017-04-14] MEDS: ESCITALOPRAM OXALATE 20 MG TABLET (FP) PO SCH (14:18)
[2017-04-14] MEDS: DOCUSATE SODIUM 100 MG CAPSULE (FP) PO SCH ×2 (14:18→21:34)
[2017-04-14] MEDS: ASCORBIC ACID 500 MG TABLET (FP) PO SCH ×2 (14:18→21:33)
[2017-04-14] MEDS: PERPHENAZINE 2 MG TABLET PO SCH (14:19)
[2017-04-14] MEDS: FERROUS SO4 325 MG TABLET (FP) PO SCH ×2 (14:19→21:33)
[2017-04-14] MEDS: OLANZAPINE 2.5 MG, OLANZAPINE 5 MG PO SCH (14:21)
[2017-04-14] MEDS: VITAMINS A AND D TOPICAL OINTMENT 60 GM TUBE TP SCH ×2 (14:21→21:36)
[2017-04-14] MEDS: SODIUM BICARBONATE 650 MG TABLET PO SCH (14:22)
[2017-04-14] MEDS: ACETAMINOPHEN 325 MG TABLET (FP) PO PRN (14:26)
[2017-04-14] MEDS: NYSTATIN 100,000 UNIT/GM TOPICAL CREAM 15 GM TUBE TP SCH ×2 (14:27→21:38)
[2017-04-14] MEDS: POLYETHYLENE GLYCOL 3350 119 GM BTL PO SCH ×2 (14:27→21:36)
--- NOTE | 2017-04-14 16:54 | PN ---
Progress Note, Physician History of Present Illness: Pt seen and examined. Events noted. Pt is alert and responsive, denies any pain. s/p cystoscopy for clot evacuation/TURP. Remains afebrile, without distress. - Current Medication List Current Medications: Active Medications Acetaminophen (Tylenol -) 650 mg PO Q4H PRN PRN Reason: FEVER OR PAIN Last Admin: 04/14/17 14:26 Dose: 650 mg Amlodipine Besylate (Norvasc -) 10 mg PO DAILY [facility] Last Admin: 04/14/17 14:18 Dose: 10 mg Amoxicillin/Clavulanate Potassium (Augmentin - 500mg Tablet) 1 tab PO BID@0800, 1730 [facility] Last Admin: 04/14/17 08:13 Dose: Not Given Ascorbic Acid (Vitamin C -) 500 mg PO BID [facility] Last Admin: 04/14/17 14:18 Dose: 500 mg Clindamycin HCl (Cleocin -) 300 mg PO Q6HPO [facility] Last Admin: 04/14/17 14:19 Dose: 300 mg Docusate Sodium (Colace -) 100 mg PO BID [facility] Last Admin: 04/14/17 14:18 Dose: 100 mg Escitalopram Oxalate (Lexapro -) 20 mg PO DAILY [facility] Last Admin: 04/14/17 14:18 Dose: 20 mg Ferrous Sulfate (Feosol -) 325 mg PO BID [facility] Last Admin: 04/14/17 14:19 Dose: 325 mg Furosemide (Lasix -) 40 mg PO DAILY [facility] Last Admin: 04/14/17 14:18 Dose: 40 mg Hydromorphone HCl (Dilaudid Injection -) 2 mg IM Q4H PRN PRN Reason: PAIN Metoprolol Succinate (Toprol Xl -) 25 mg PO DAILY [facility] Last Admin: 04/14/17 14:17 Dose: 25 mg Multivitamins/Minerals/Vitamin C (Tab-A-Vit -) 1 tab PO DAILY [facility] Last Admin: 04/14/17 14:18 Dose: 1 tab Nystatin (Mycostatin Cream -) 1 applic TP BID [facility] Last Admin: 04/14/17 14:27 Dose: 1 applic Olanzapine 2.5 mg/ Olanzapine (5 mg) 7.5 mg PO DAILY [facility] Last Admin: 04/14/17 14:21 Dose: 7.5 mg Ondansetron HCl (Zofran Injection) 4 mg IVPB Q6H PRN PRN Reason: NAUSEA Perphenazine (Trilafon) 0.5 mg PO DAILY [facility] Last Admin: 04/14/17 14:19 Dose: 0.5 mg Polyethylene Glycol (Miralax (For Daily Use) -) 17 gm PO BID [facility] Last Admin: 04/14/17 14:27 Dose: 17 gm Ranitidine HCl (Zantac -) 150 mg PO BID [facility] Last Admin: 04/14/17 14:17 Dose: 150 mg Tamsulosin HCl (Flomax -) 0.4 mg PO DAILY@0830 [facility] Last Admin: 04/14/17 08:13 Dose: Not Given Vitamin A/Vitamin D (Vitamin A & D Top Oint -) 1 applic TP BID [facility] Last Admin: 04/14/17 14:21 Dose: 1 applic - Objective Vital Signs: Vital Signs Temperature 98.6 F 04/14/17 14:48 Pulse Rate 82 04/14/17 14:48 Respiratory Rate 16 04/14/17 14:48 Blood Pressure 120/78 04/14/17 14:48 O2 Sat by Pulse Oximetry (%) 97 04/14/17 13:12 Constitutional: Yes: No Distress, Calm Eyes: Yes: WNL HENT: Yes: WNL Neck: Yes: WNL Cardiovascular: Yes: Regular Rate and Rhythm Respiratory: Yes: Regular Gastrointestinal: Yes: Normal Bowel Sounds, Soft Genitourinary: Yes: Other (CBI, hematuria) Extremities: Yes: Erythema (RLE erythema/warmth with ulcerations, denies tenderness) Neurological: Yes: Alert Labs: CBC, BMP 04/14/17 07:00 04/14/17 07:00 Assessment/Plan RLE cellulitis - still erythematous UTI Prostate obstruction/bleeding s/p cystoscopy/TURP with clot evacuation CKD -- continue antibiotics for now monitor closely
[2017-04-14] MEDS ORDERED: LORazepam 2 MG/ML SDV VIAL ONE (21:24)
[2017-04-15] MEDS: CLINDAMYCIN HCL 150 MG CAPSULE (FP) PO SCH ×3 (06:27→18:19)
[2017-04-15 08:13] LABS: BASOPHIL 0.5 % (0-2.0); EOSINOPHIL 0.2 % (0-4.5); MCH 31.1 pg (25.7-33.7); MEAN CELL VOLUME 94.2 fl (80-96); MEAN PLT VOLUME 8.4 fl (7.5-11.1); NEUTROPHILS 94.5 % (42.8-82.8); PLATELET COUNT 280 K/MM3 (134-434); RDW 15.2 % (11.9-15.9); WHITE BLOOD COUNT 11.9 K/mm3 (4.0-10.0)
--- NOTE | 2017-04-15 08:17 | PN ---
Progress Note, Physician History of Present Illness: Patient agitated last night, requiring lori vest now, received 1 dose ativan last night (gets olanzapine duuring the day). Curretnly sleeping. Has blood tinged urine via CBI. - Current Medication List Current Medications: Active Medications Acetaminophen (Tylenol -) 650 mg PO Q4H PRN PRN Reason: FEVER OR PAIN Last Admin: 04/14/17 14:26 Dose: 650 mg Amlodipine Besylate (Norvasc -) 10 mg PO DAILY [facility] Last Admin: 04/14/17 14:18 Dose: 10 mg Amoxicillin/Clavulanate Potassium (Augmentin - 500mg Tablet) 1 tab PO BID@0800, 1730 [facility] Last Admin: 04/14/17 18:06 Dose: 1 tab Ascorbic Acid (Vitamin C -) 500 mg PO BID [facility] Last Admin: 04/14/17 21:33 Dose: 500 mg Clindamycin HCl (Cleocin -) 300 mg PO Q6HPO [facility] Last Admin: 04/15/17 06:27 Dose: 300 mg Docusate Sodium (Colace -) 100 mg PO BID [facility] Last Admin: 04/14/17 21:34 Dose: 100 mg Escitalopram Oxalate (Lexapro -) 20 mg PO DAILY [facility] Last Admin: 04/14/17 14:18 Dose: 20 mg Ferrous Sulfate (Feosol -) 325 mg PO BID [facility] Last Admin: 04/14/17 21:33 Dose: 325 mg Furosemide (Lasix -) 40 mg PO DAILY [facility] Last Admin: 04/14/17 14:18 Dose: 40 mg Hydromorphone HCl (Dilaudid Injection -) 2 mg IM Q4H PRN PRN Reason: PAIN Lorazepam (Ativan Injection -) 0.5 mg IVPUSH Q6H PRN PRN Reason: AGITATION Last Admin: 04/14/17 22:41 Dose: 0.5 mg Metoprolol Succinate (Toprol Xl -) 25 mg PO DAILY [facility] Last Admin: 04/14/17 14:17 Dose: 25 mg Multivitamins/Minerals/Vitamin C (Tab-A-Vit -) 1 tab PO DAILY [facility] Last Admin: 04/14/17 14:18 Dose: 1 tab Nystatin (Mycostatin Cream -) 1 applic TP BID [facility] Last Admin: 04/14/17 21:38 Dose: 1 applic Olanzapine 2.5 mg/ Olanzapine (5 mg) 7.5 mg PO DAILY [facility] Last Admin: 04/14/17 14:21 Dose: 7.5 mg Ondansetron HCl (Zofran Injection) 4 mg IVPB Q6H PRN PRN Reason: NAUSEA Perphenazine (Trilafon) 0.5 mg PO DAILY [facility] Last Admin: 04/14/17 14:19 Dose: 0.5 mg Polyethylene Glycol (Miralax (For Daily Use) -) 17 gm PO BID [facility] Last Admin: 04/14/17 21:36 Dose: 17 gm Ranitidine HCl (Zantac -) 150 mg PO BID [facility] Last Admin: 04/14/17 21:33 Dose: 150 mg Tamsulosin HCl (Flomax -) 0.4 mg PO DAILY@0830 [facility] Last Admin: 04/14/17 08:13 Dose: Not Given Vitamin A/Vitamin D (Vitamin A & D Top Oint -) 1 applic TP BID [facility] Last Admin: 04/14/17 21:36 Dose: 1 applic - Objective Vital Signs: Vital Signs Temperature 97.5 F L 04/15/17 06:00 Pulse Rate 55 L 04/15/17 06:00 Respiratory Rate 18 04/15/17 06:00 Blood Pressure 137/62 04/15/17 06:00 O2 Sat by Pulse Oximetry (%) 97 04/14/17 21:00 Constitutional: Yes: No Distress, Calm Cardiovascular: Yes: Regular Rate and Rhythm, S1, S2. No: Murmur Respiratory: Yes: Regular, CTA Bilaterally. No: Rales, Rhonchi, Wheezes Gastrointestinal: Yes: Normal Bowel Sounds, Soft. No: Distention, Tenderness Genitourinary: Yes: Seay Present (with blood tinged urine) Edema: No Assessment/Plan Current Active Problems Cellulitis of leg, right (Acute) UTI Gross hematuria (Acute) BPH Dementia Anemia -on CBI with urology following -follow blood counts
[2017-04-15 08:47] LABS: ALBUMIN 2.8 g/dl (3.4-5.0); ANION GAP 8 (8-16); BILIRUBIN,TOTAL 0.3 mg/dL (0.2-1.0); CO2 26 mmol/L (21-32); GLUCOSE,RANDOM 133 mg/dL (74-106); SGOT/AST 16 U/L (15-37); SGPT/ALT 32 U/L (12-78); TOT PROT 5.3 g/dl (6.4-8.2)
[2017-04-15 09:04] LABS: ALK PHOS 146 U/L (45-117); CALCIUM 8.9 mg/dL (8.5-10.1); CREATININE 2.5 mg/dL (0.7-1.3)
[2017-04-15] MEDS ORDERED: PT OWN MED DRAWER 7, Y5N ONE (10:49)
[2017-04-15] MEDS: RANITIDINE HCL 150 MG TABLET (FP) PO SCH ×2 (10:50→21:09)
[2017-04-15] MEDS: ASCORBIC ACID 500 MG TABLET (FP) PO SCH ×2 (10:51→21:09)
[2017-04-15] MEDS: DOCUSATE SODIUM 100 MG CAPSULE (FP) PO SCH ×2 (10:51→21:09)
[2017-04-15] MEDS: amLODIPine BESYLATE 10 MG TABLET (FP) PO SCH (10:51)
[2017-04-15] MEDS: METOPROLOL SUCCINATE 25 MG TAB.SR.24H (FP) PO SCH (10:51)
[2017-04-15] MEDS: FUROSEMIDE 40 MG TABLET (FP) PO SCH (10:51)
[2017-04-15] MEDS: ESCITALOPRAM OXALATE 20 MG TABLET (FP) PO SCH (10:51)
[2017-04-15] MEDS: MULTIVITAMINS (DAILY MVI) TABLET (FP) PO SCH (10:51)
[2017-04-15] MEDS: TAMSULOSIN HCL 0.4 MG CAP.ER.24H (FP) PO SCH (10:51)
[2017-04-15] MEDS: FERROUS SO4 325 MG TABLET (FP) PO SCH ×2 (10:51→21:09)
[2017-04-15] MEDS: POLYETHYLENE GLYCOL 3350 119 GM BTL PO SCH ×2 (10:52→21:10)
[2017-04-15] MEDS: AMOX TR/POT CLAV 500MG/125MG TABLETS (FP) PO SCH ×2 (10:52→18:20)
[2017-04-15] MEDS: OLANZAPINE 2.5 MG, OLANZAPINE 5 MG PO SCH (10:52)
[2017-04-15] MEDS: PERPHENAZINE 2 MG TABLET PO SCH (10:53)
[2017-04-15] MEDS: VITAMINS A AND D TOPICAL OINTMENT 60 GM TUBE TP SCH ×2 (10:59→21:17)
[2017-04-15] MEDS: NYSTATIN 100,000 UNIT/GM TOPICAL CREAM 15 GM TUBE TP SCH ×2 (10:59→21:17)
--- NOTE | 2017-04-15 14:30 | PN ---
Progress Note, Physician History of Present Illness: Pt arousable, without distress. CBI ongoing with some hematuria. Denies pain. - Current Medication List Current Medications: Active Medications Acetaminophen (Tylenol -) 650 mg PO Q4H PRN PRN Reason: FEVER OR PAIN Last Admin: 04/14/17 14:26 Dose: 650 mg Amlodipine Besylate (Norvasc -) 10 mg PO DAILY [facility] Last Admin: 04/15/17 10:51 Dose: 10 mg Amoxicillin/Clavulanate Potassium (Augmentin - 500mg Tablet) 1 tab PO BID@0800, 1730 [facility] Last Admin: 04/15/17 10:52 Dose: 1 tab Ascorbic Acid (Vitamin C -) 500 mg PO BID [facility] Last Admin: 04/15/17 10:51 Dose: 500 mg Clindamycin HCl (Cleocin -) 300 mg PO Q6HPO [facility] Last Admin: 04/15/17 12:06 Dose: 300 mg Docusate Sodium (Colace -) 100 mg PO BID [facility] Last Admin: 04/15/17 10:51 Dose: 100 mg Escitalopram Oxalate (Lexapro -) 20 mg PO DAILY [facility] Last Admin: 04/15/17 10:51 Dose: 20 mg Ferrous Sulfate (Feosol -) 325 mg PO BID [facility] Last Admin: 04/15/17 10:51 Dose: 325 mg Furosemide (Lasix -) 40 mg PO DAILY [facility] Last Admin: 04/15/17 10:51 Dose: 40 mg Hydromorphone HCl (Dilaudid Injection -) 2 mg IM Q4H PRN PRN Reason: PAIN Lorazepam (Ativan Injection -) 0.5 mg IVPUSH Q6H PRN PRN Reason: AGITATION Last Admin: 04/14/17 22:41 Dose: 0.5 mg Metoprolol Succinate (Toprol Xl -) 25 mg PO DAILY [facility] Last Admin: 04/15/17 10:51 Dose: 25 mg Multivitamins/Minerals/Vitamin C (Tab-A-Vit -) 1 tab PO DAILY [facility] Last Admin: 04/15/17 10:51 Dose: 1 tab Nystatin (Mycostatin Cream -) 1 applic TP BID [facility] Last Admin: 04/15/17 10:59 Dose: 1 applic Olanzapine 2.5 mg/ Olanzapine (5 mg) 7.5 mg PO DAILY [facility] Last Admin: 04/15/17 10:52 Dose: 7.5 mg Ondansetron HCl (Zofran Injection) 4 mg IVPB Q6H PRN PRN Reason: NAUSEA Perphenazine (Trilafon) 0.5 mg PO DAILY [facility] Last Admin: 04/15/17 10:53 Dose: 0.5 mg Polyethylene Glycol (Miralax (For Daily Use) -) 17 gm PO BID [facility] Last Admin: 04/15/17 10:52 Dose: 17 gm Ranitidine HCl (Zantac -) 150 mg PO BID [facility] Last Admin: 04/15/17 10:50 Dose: 150 mg Tamsulosin HCl (Flomax -) 0.4 mg PO DAILY@0830 [facility] Last Admin: 04/15/17 10:51 Dose: 0.4 mg Vitamin A/Vitamin D (Vitamin A & D Top Oint -) 1 applic TP BID [facility] Last Admin: 04/15/17 10:59 Dose: 1 applic - Objective Vital Signs: Vital Signs Temperature 97.5 F L 04/15/17 06:00 Pulse Rate 64 04/15/17 08:48 Respiratory Rate 18 04/15/17 08:48 Blood Pressure 136/64 04/15/17 08:48 O2 Sat by Pulse Oximetry (%) 97 04/14/17 21:00 Constitutional: Yes: No Distress, Calm Cardiovascular: Yes: Regular Rate and Rhythm Respiratory: Yes: Regular Gastrointestinal: Yes: Normal Bowel Sounds, Soft Genitourinary: Yes: Other (CBI - blood tinged urine) Extremities: Yes: Erythema (RLE erythemia/ no tenderness) Labs: CBC, BMP 04/15/17 07:00 04/15/17 07:00 Assessment/Plan RLE cellulitis - still erythematous UTI Prostate obstruction/bleeding s/p cystoscopy/TURP with clot evacuation CKD -- continue po antibiotics, if erythema persists will change to IV continue wound care
--- NOTE | 2017-04-15 15:05 | PN ---
Progress Note, Physician Chief Complaint: The patient seen in his room. Lethargic. seems comfortable. CBI in progress. Hemestained effluent. Vital signs stable. Afebrile. - Current Medication List Current Medications: Active Medications Acetaminophen (Tylenol -) 650 mg PO Q4H PRN PRN Reason: FEVER OR PAIN Last Admin: 04/14/17 14:26 Dose: 650 mg Amlodipine Besylate (Norvasc -) 10 mg PO DAILY [facility] Last Admin: 04/15/17 10:51 Dose: 10 mg Amoxicillin/Clavulanate Potassium (Augmentin - 500mg Tablet) 1 tab PO BID@0800, 1730 [facility] Last Admin: 04/15/17 10:52 Dose: 1 tab Ascorbic Acid (Vitamin C -) 500 mg PO BID [facility] Last Admin: 04/15/17 10:51 Dose: 500 mg Clindamycin HCl (Cleocin -) 300 mg PO Q6HPO [facility] Last Admin: 04/15/17 12:06 Dose: 300 mg Docusate Sodium (Colace -) 100 mg PO BID [facility] Last Admin: 04/15/17 10:51 Dose: 100 mg Escitalopram Oxalate (Lexapro -) 20 mg PO DAILY [facility] Last Admin: 04/15/17 10:51 Dose: 20 mg Ferrous Sulfate (Feosol -) 325 mg PO BID [facility] Last Admin: 04/15/17 10:51 Dose: 325 mg Furosemide (Lasix -) 40 mg PO DAILY [facility] Last Admin: 04/15/17 10:51 Dose: 40 mg Hydromorphone HCl (Dilaudid Injection -) 2 mg IM Q4H PRN PRN Reason: PAIN Lorazepam (Ativan Injection -) 0.5 mg IVPUSH Q6H PRN PRN Reason: AGITATION Last Admin: 04/14/17 22:41 Dose: 0.5 mg Metoprolol Succinate (Toprol Xl -) 25 mg PO DAILY [facility] Last Admin: 04/15/17 10:51 Dose: 25 mg Multivitamins/Minerals/Vitamin C (Tab-A-Vit -) 1 tab PO DAILY [facility] Last Admin: 04/15/17 10:51 Dose: 1 tab Nystatin (Mycostatin Cream -) 1 applic TP BID [facility] Last Admin: 04/15/17 10:59 Dose: 1 applic Olanzapine 2.5 mg/ Olanzapine (5 mg) 7.5 mg PO DAILY [facility] Last Admin: 04/15/17 10:52 Dose: 7.5 mg Ondansetron HCl (Zofran Injection) 4 mg IVPB Q6H PRN PRN Reason: NAUSEA Perphenazine (Trilafon) 0.5 mg PO DAILY [facility] Last Admin: 04/15/17 10:53 Dose: 0.5 mg Polyethylene Glycol (Miralax (For Daily Use) -) 17 gm PO BID [facility] Last Admin: 04/15/17 10:52 Dose: 17 gm Ranitidine HCl (Zantac -) 150 mg PO BID [facility] Last Admin: 04/15/17 10:50 Dose: 150 mg Tamsulosin HCl (Flomax -) 0.4 mg PO DAILY@0830 [facility] Last Admin: 04/15/17 10:51 Dose: 0.4 mg Vitamin A/Vitamin D (Vitamin A & D Top Oint -) 1 applic TP BID [facility] Last Admin: 04/15/17 10:59 Dose: 1 applic - Objective Vital Signs: Vital Signs Temperature 98.2 F 04/15/17 14:56 Pulse Rate 98 H 04/15/17 14:56 Respiratory Rate 16 04/15/17 14:56 Blood Pressure 120/82 04/15/17 14:56 O2 Sat by Pulse Oximetry (%) 97 04/14/17 21:00 Constitutional: Yes: Well Nourished, No Distress Eyes: Yes: Conjunctiva Clear HENT: Yes: Atraumatic Neck: Yes: Supple Cardiovascular: Yes: Regular Rate and Rhythm, S1 Respiratory: Yes: CTA Bilaterally Gastrointestinal: Yes: Normal Bowel Sounds, Soft Genitourinary: Yes: Other (CBI with hemestained effluent) Labs: CBC, BMP 04/15/17 07:00 04/15/17 07:00 Assessment/Plan 86 y/o male with right LE cellulitis. Had TURP and clot evacuation yesterday. CBI being done. Afebrile. Hemodynamic status stable. Renal functions stable. Hypernatremia unchanged. On Lasix. Will DC the same and observe. Will monitor the renal functions with you. Mary Mirza MD
[2017-04-15] MEDS ORDERED: ALBUTEROL SO4 0.083% IH SOL 2.5 MG/3 ML VIAL.NEB. NEB PRN (16:13)
[2017-04-16] MEDS: CLINDAMYCIN HCL 150 MG CAPSULE (FP) PO SCH ×3 (00:31→12:34)
[2017-04-16 08:23] LABS: ALBUMIN 2.6 g/dl (3.4-5.0); ALK PHOS 128 U/L (45-117); ANION GAP 12 (8-16); BILIRUBIN,TOTAL 0.4 mg/dL (0.2-1.0); CALCIUM 8.6 mg/dL (8.5-10.1); CO2 25 mmol/L (21-32); CREATININE 2.6 mg/dL (0.7-1.3); GLUCOSE,RANDOM 88 mg/dL (74-106); SGOT/AST 21 U/L (15-37); SGPT/ALT 27 U/L (12-78)
[2017-04-16] MEDS: AMOX TR/POT CLAV 500MG/125MG TABLETS (FP) PO SCH (08:48)
[2017-04-16] MEDS: TAMSULOSIN HCL 0.4 MG CAP.ER.24H (FP) PO SCH (08:48)
[2017-04-16] MEDS ORDERED: PT OWN MED DRAWER 7, Y5N ONE (09:29)
[2017-04-16] MEDS: ESCITALOPRAM OXALATE 20 MG TABLET (FP) PO SCH (09:40)
[2017-04-16] MEDS: ASCORBIC ACID 500 MG TABLET (FP) PO SCH ×2 (09:40→21:27)
[2017-04-16] MEDS: METOPROLOL SUCCINATE 25 MG TAB.SR.24H (FP) PO SCH (09:40)
[2017-04-16] MEDS: FERROUS SO4 325 MG TABLET (FP) PO SCH ×2 (09:40→21:27)
[2017-04-16] MEDS: MULTIVITAMINS (DAILY MVI) TABLET (FP) PO SCH (09:40)
[2017-04-16] MEDS: RANITIDINE HCL 150 MG TABLET (FP) PO SCH ×2 (09:40→21:27)
[2017-04-16] MEDS: DOCUSATE SODIUM 100 MG CAPSULE (FP) PO SCH ×2 (09:40→21:27)
[2017-04-16] MEDS: amLODIPine BESYLATE 10 MG TABLET (FP) PO SCH (09:40)
[2017-04-16] MEDS: NYSTATIN 100,000 UNIT/GM TOPICAL CREAM 15 GM TUBE TP SCH ×2 (09:41→21:27)
[2017-04-16] MEDS: PERPHENAZINE 2 MG TABLET PO SCH (09:41)
[2017-04-16] MEDS: OLANZAPINE 2.5 MG, OLANZAPINE 5 MG PO SCH (09:41)
[2017-04-16] MEDS: VITAMINS A AND D TOPICAL OINTMENT 60 GM TUBE TP SCH ×2 (09:45→21:28)
[2017-04-16] MEDS: POLYETHYLENE GLYCOL 3350 119 GM BTL PO SCH ×2 (09:45→22:00)
--- NOTE | 2017-04-16 10:51 | PN ---
Progress Note (short form) - Note Progress Note: Renal Follow up for SUZI/CKD pt seen and examined in the hallway feels weak denies any sob, chest pain, abd pain CBI running Vital Signs Temperature 98.2 F 04/13/17 14:00 Pulse Rate 66 04/13/17 14:00 Respiratory Rate 20 04/13/17 14:00 Blood Pressure 125/60 04/13/17 14:00 O2 Sat by Pulse Oximetry (%) 92 L 04/13/17 11:12 Intake & Output 04/10/17 04/11/17 04/12/17 04/13/17 23:59 23:59 23:59 23:59 Intake Total 600 6550 74715 6340 Output Total 1000 68827 14331 52731 Balance -400 -7165 -2430 -5460 Gen: NAD, awake and alert CVS: RRR, No M/R Lungs: CTA Abd: soft NT/ND Ext: No edema, clubbing or cyanosis Gu: CBI, harris in place CBC, BMP 04/13/17 06:30 04/13/17 06:30 Current Medications Acetaminophen (Tylenol -) 650 mg PO Q4H PRN PRN Reason: FEVER OR PAIN Amlodipine Besylate (Norvasc -) 10 mg PO DAILY [facility] Last Admin: 04/13/17 09:27 Dose: 10 mg Amoxicillin/Clavulanate Potassium (Augmentin - 500mg Tablet) 1 tab PO BID@0800, 1730 [facility] Last Admin: 04/13/17 09:23 Dose: 1 tab Ascorbic Acid (Vitamin C -) 500 mg PO BID [facility] Last Admin: 04/13/17 09:27 Dose: 500 mg Clindamycin HCl (Cleocin -) 300 mg PO Q6HPO [facility] Last Admin: 04/13/17 11:43 Dose: 300 mg Docusate Sodium (Colace -) 100 mg PO BID [facility] Last Admin: 04/13/17 09:22 Dose: Not Given Escitalopram Oxalate (Lexapro -) 20 mg PO DAILY [facility] Last Admin: 04/13/17 09:23 Dose: 20 mg Ferrous Sulfate (Feosol -) 325 mg PO BID [facility] Last Admin: 04/13/17 09:24 Dose: 325 mg Furosemide (Lasix -) 40 mg PO DAILY [facility] Last Admin: 04/13/17 09:23 Dose: 40 mg Metoprolol Succinate (Toprol Xl -) 25 mg PO DAILY [facility] Last Admin: 04/13/17 09:23 Dose: 25 mg Multivitamins/Minerals/Vitamin C (Tab-A-Vit -) 1 tab PO DAILY [facility] Last Admin: 04/13/17 09:24 Dose: 1 tab Nystatin (Mycostatin Cream -) 1 applic TP BID [facility] Last Admin: 04/13/17 09:32 Dose: 1 applic Olanzapine 2.5 mg/ Olanzapine (5 mg) 7.5 mg PO DAILY [facility] Last Admin: 04/13/17 09:24 Dose: 7.5 mg Ondansetron HCl (Zofran Injection) 4 mg IVPB Q6H PRN PRN Reason: NAUSEA Perphenazine (Trilafon) 0.5 mg PO DAILY [facility] Last Admin: 04/13/17 09:24 Dose: 0.5 mg Polyethylene Glycol (Miralax (For Daily Use) -) 17 gm PO BID [facility] Last Admin: 04/13/17 09:22 Dose: Not Given Ranitidine HCl (Zantac -) 150 mg PO BID [facility] Last Admin: 04/13/17 09:23 Dose: 150 mg Sodium Bicarbonate (Sodium Bicarbonate -) 650 mg PO BID [facility] Last Admin: 04/13/17 09:24 Dose: 650 mg Tamsulosin HCl (Flomax -) 0.4 mg PO DAILY@0830 [facility] Last Admin: 04/13/17 09:23 Dose: 0.4 mg Vitamin A/Vitamin D (Vitamin A & D Top Oint -) 1 applic TP BID [facility] Last Admin: 04/13/17 09:32 Dose: 1 applic A/P 86 year old Gentleman with PMhx of CKD (baseline 2.1-2.6), CHF, Anemia, GIB, Hyperlipidemia s/p recent admission for acute on chronic anemia who was [place] with gross hematuria #Hematuria s/p Cysto that showed large clots in the bladder and bleeding prostate on CBI now trend H/H #SUZI on CKD Renal function stable holding lasix as of yesterday Na worsening, will give D5W x 24 hours #Hypertension Continue amlodipine no DIPTI/ARB at this time #Anemia s/p PRBC and venofer #Hypernatremia will start D5W at 83cc x 24 hours Trend Na daily oral water intake as tolerated Teja Mercedes DO
--- NOTE | 2017-04-16 11:11 | PN ---
Progress Note, Physician History of Present Illness: Patient more awake and alert today, eating breakfast (feeding himself). - Current Medication List Current Medications: Active Medications Acetaminophen (Tylenol -) 650 mg PO Q4H PRN PRN Reason: FEVER OR PAIN Last Admin: 04/14/17 14:26 Dose: 650 mg Albuterol Sulfate (Ventolin 0.083% Nebulizer Soln -) 1 amp NEB Q6H PRN PRN Reason: SHORT OF BREATH/WHEEZING Amlodipine Besylate (Norvasc -) 10 mg PO DAILY [facility] Last Admin: 04/16/17 09:40 Dose: 10 mg Amoxicillin/Clavulanate Potassium (Augmentin - 500mg Tablet) 1 tab PO BID@0800, 1730 [facility] Last Admin: 04/16/17 08:48 Dose: 1 tab Ascorbic Acid (Vitamin C -) 500 mg PO BID [facility] Last Admin: 04/16/17 09:40 Dose: 500 mg Clindamycin HCl (Cleocin -) 300 mg PO Q6HPO [facility] Last Admin: 04/16/17 05:55 Dose: 300 mg Docusate Sodium (Colace -) 100 mg PO BID [facility] Last Admin: 04/16/17 09:40 Dose: 100 mg Escitalopram Oxalate (Lexapro -) 20 mg PO DAILY [facility] Last Admin: 04/16/17 09:40 Dose: 20 mg Ferrous Sulfate (Feosol -) 325 mg PO BID [facility] Last Admin: 04/16/17 09:40 Dose: 325 mg Hydromorphone HCl (Dilaudid Injection -) 2 mg IM Q4H PRN PRN Reason: PAIN Dextrose (D5w -) 1,000 mls @ 83 mls/hr IV .Q12H3M [facility] Stop: 04/17/17 10:59 Lorazepam (Ativan Injection -) 0.5 mg IVPUSH Q6H PRN PRN Reason: AGITATION Last Admin: 04/14/17 22:41 Dose: 0.5 mg Metoprolol Succinate (Toprol Xl -) 25 mg PO DAILY [facility] Last Admin: 04/16/17 09:40 Dose: 25 mg Multivitamins/Minerals/Vitamin C (Tab-A-Vit -) 1 tab PO DAILY [facility] Last Admin: 04/16/17 09:40 Dose: 1 tab Nystatin (Mycostatin Cream -) 1 applic TP BID [facility] Last Admin: 04/16/17 09:41 Dose: 1 applic Olanzapine 2.5 mg/ Olanzapine (5 mg) 7.5 mg PO DAILY [facility] Last Admin: 04/16/17 09:41 Dose: 7.5 mg Ondansetron HCl (Zofran Injection) 4 mg IVPB Q6H PRN PRN Reason: NAUSEA Perphenazine (Trilafon) 0.5 mg PO DAILY [facility] Last Admin: 04/16/17 09:41 Dose: 0.5 mg Polyethylene Glycol (Miralax (For Daily Use) -) 17 gm PO BID [facility] Last Admin: 04/16/17 09:45 Dose: 17 gm Ranitidine HCl (Zantac -) 150 mg PO BID [facility] Last Admin: 04/16/17 09:40 Dose: 150 mg Tamsulosin HCl (Flomax -) 0.4 mg PO DAILY@0830 [facility] Last Admin: 04/16/17 08:48 Dose: 0.4 mg Vitamin A/Vitamin D (Vitamin A & D Top Oint -) 1 applic TP BID [facility] Last Admin: 04/16/17 09:45 Dose: 1 applic - Objective Vital Signs: Vital Signs Temperature 98.4 F 04/16/17 10:00 Pulse Rate 62 04/16/17 10:00 Respiratory Rate 18 04/16/17 10:00 Blood Pressure 133/47 04/16/17 10:00 O2 Sat by Pulse Oximetry (%) 96 04/16/17 09:00 Constitutional: Yes: No Distress, Calm Cardiovascular: Yes: Regular Rate and Rhythm, S1, S2. No: Murmur Respiratory: Yes: Regular, CTA Bilaterally. No: Rales, Rhonchi, Wheezes Gastrointestinal: Yes: Normal Bowel Sounds, Soft. No: Distention, Tenderness Genitourinary: Yes: Seay Present (with blood tinged urine) Edema: No Labs: CBC, BMP 04/15/17 07:00 04/16/17 06:00 Assessment/Plan Current Active Problems Cellulitis of leg, right (Acute) UTI Gross hematuria (Acute) BPH Dementia Anemia -cont abx, urology following on CBI
[2017-04-16] MEDS: DEXTROSE 5%-WATER - 1,000 ML IV SCH (11:48)
--- NOTE | 2017-04-16 14:27 | PN ---
Progress Note, Physician History of Present Illness: patient stable leg has become more angry patients cellulitits had resolved now the cellulitis is back - Current Medication List Current Medications: Active Medications Acetaminophen (Tylenol -) 650 mg PO Q4H PRN PRN Reason: FEVER OR PAIN Last Admin: 04/14/17 14:26 Dose: 650 mg Albuterol Sulfate (Ventolin 0.083% Nebulizer Soln -) 1 amp NEB Q6H PRN PRN Reason: SHORT OF BREATH/WHEEZING Amlodipine Besylate (Norvasc -) 10 mg PO DAILY [facility] Last Admin: 04/16/17 09:40 Dose: 10 mg Ascorbic Acid (Vitamin C -) 500 mg PO BID [facility] Last Admin: 04/16/17 09:40 Dose: 500 mg Clindamycin HCl (Cleocin -) 300 mg PO Q6HPO [facility] Last Admin: 04/16/17 12:34 Dose: 300 mg Docusate Sodium (Colace -) 100 mg PO BID [facility] Last Admin: 04/16/17 09:40 Dose: 100 mg Escitalopram Oxalate (Lexapro -) 20 mg PO DAILY [facility] Last Admin: 04/16/17 09:40 Dose: 20 mg Ferrous Sulfate (Feosol -) 325 mg PO BID [facility] Last Admin: 04/16/17 09:40 Dose: 325 mg Hydromorphone HCl (Dilaudid Injection -) 2 mg IM Q4H PRN PRN Reason: PAIN Dextrose (D5w -) 1,000 mls @ 83 mls/hr IV ASDIR [facility] Last Admin: 04/16/17 11:48 Dose: 83 mls/hr Lorazepam (Ativan Injection -) 0.5 mg IVPUSH Q6H PRN PRN Reason: AGITATION Last Admin: 04/14/17 22:41 Dose: 0.5 mg Metoprolol Succinate (Toprol Xl -) 25 mg PO DAILY [facility] Last Admin: 04/16/17 09:40 Dose: 25 mg Multivitamins/Minerals/Vitamin C (Tab-A-Vit -) 1 tab PO DAILY [facility] Last Admin: 04/16/17 09:40 Dose: 1 tab Nystatin (Mycostatin Cream -) 1 applic TP BID [facility] Last Admin: 04/16/17 09:41 Dose: 1 applic Olanzapine 2.5 mg/ Olanzapine (5 mg) 7.5 mg PO DAILY [facility] Last Admin: 04/16/17 09:41 Dose: 7.5 mg Ondansetron HCl (Zofran Injection) 4 mg IVPB Q6H PRN PRN Reason: NAUSEA Perphenazine (Trilafon) 0.5 mg PO DAILY [facility] Last Admin: 04/16/17 09:41 Dose: 0.5 mg Polyethylene Glycol (Miralax (For Daily Use) -) 17 gm PO BID [facility] Last Admin: 04/16/17 09:45 Dose: 17 gm Ranitidine HCl (Zantac -) 150 mg PO BID [facility] Last Admin: 04/16/17 09:40 Dose: 150 mg Tamsulosin HCl (Flomax -) 0.4 mg PO DAILY@0830 [facility] Last Admin: 04/16/17 08:48 Dose: 0.4 mg Vitamin A/Vitamin D (Vitamin A & D Top Oint -) 1 applic TP BID [facility] Last Admin: 04/16/17 09:45 Dose: 1 applic - Objective Vital Signs: Vital Signs Temperature 98.4 F 04/16/17 10:00 Pulse Rate 62 04/16/17 10:00 Respiratory Rate 18 04/16/17 10:00 Blood Pressure 133/47 04/16/17 10:00 O2 Sat by Pulse Oximetry (%) 96 04/16/17 09:00 Constitutional: Yes: No Distress, Calm Cardiovascular: Yes: Regular Rate and Rhythm Respiratory: Yes: Regular, CTA Bilaterally Gastrointestinal: Yes: Normal Bowel Sounds, Soft Extremities: Yes: Erythema, Other Integumentary: Yes: Erythema, Other (cellultitis) Neurological: Yes: Alert, Other Labs: CBC, BMP 04/15/17 07:00 04/16/17 06:00 Assessment/Plan uti hematuria cough cellulitis of the rt leg arf plan continue current mgmt changed abx to iv elevation of the legs rest as planned
[2017-04-16 15:29] LABS: BASOPHIL 0.5 % (0-2.0); MCH 30.8 pg (25.7-33.7); MCHC 32.7 g/dl (32.0-35.9); MEAN PLT VOLUME 8.1 fl (7.5-11.1); NEUTROPHILS 79.5 % (42.8-82.8); PLATELET COUNT 294 K/MM3 (134-434); RDW 15.1 % (11.9-15.9); WHITE BLOOD COUNT 11.1 K/mm3 (4.0-10.0)
[2017-04-16] MEDS ORDERED: DEXTROSE 5%-WATER - 50 ML IVPB ONE ×3 (15:35→21:00)
[2017-04-16] MEDS ORDERED: PIPERACILLIN/TAZOBACTAM 2.25 GM VIAL IVPB ONE ×3 (15:35→21:00)
[2017-04-16] MEDS: PIPERACILLIN/TAZOB 2.25 GM 2.25 GM in DEXTROSE 5%-WATER - 50 ML IVPB SCH ×2 (15:38→17:39)
[2017-04-17] MEDS: PIPERACILLIN/TAZOB 2.25 GM 2.25 GM in DEXTROSE 5%-WATER - 50 ML IVPB SCH ×3 (01:17→18:45)
[2017-04-17] MEDS: DEXTROSE 5%-WATER - 1,000 ML IV SCH (01:18)
[2017-04-17 07:59] LABS: BASOPHIL 0.3 % (0-2.0); EOSINOPHIL 4.2 % (0-4.5); MCH 31.7 pg (25.7-33.7); MEAN CELL VOLUME 93.3 fl (80-96); MEAN PLT VOLUME 8.5 fl (7.5-11.1); NEUTROPHILS 81.8 % (42.8-82.8); PLATELET COUNT 241 K/MM3 (134-434); WHITE BLOOD COUNT 9.1 K/mm3 (4.0-10.0)
[2017-04-17 08:50] LABS: ALBUMIN 2.4 g/dl (3.4-5.0); ALK PHOS 111 U/L (45-117); ANION GAP 9 (8-16); BILIRUBIN,TOTAL 0.3 mg/dL (0.2-1.0); CALCIUM 8.2 mg/dL (8.5-10.1); CO2 25 mmol/L (21-32); CREATININE 2.5 mg/dL (0.7-1.3); GLUCOSE,RANDOM 109 mg/dL (74-106); MAGNESIUM 1.9 mg/dL (1.8-2.4); PHOSPHOROUS 3.3 mg/dL (2.5-4.9); SGOT/AST 17 U/L (15-37); SGPT/ALT 23 U/L (12-78); TOT PROT 4.5 g/dl (6.4-8.2)
[2017-04-17] MEDS: TAMSULOSIN HCL 0.4 MG CAP.ER.24H (FP) PO SCH (08:54)
[2017-04-17] MEDS ORDERED: PIPERACILLIN/TAZOBACTAM 2.25 GM VIAL IVPB ONE ×2 (09:51→18:35)
[2017-04-17] MEDS ORDERED: DEXTROSE 5%-WATER - 50 ML IVPB ONE ×2 (09:52→18:35)
[2017-04-17] MEDS: ESCITALOPRAM OXALATE 20 MG TABLET (FP) PO SCH (09:53)
[2017-04-17] MEDS: amLODIPine BESYLATE 10 MG TABLET (FP) PO SCH ×2 (09:54→10:11)
[2017-04-17] MEDS: METOPROLOL SUCCINATE 25 MG TAB.SR.24H (FP) PO SCH ×2 (09:54→10:11)
[2017-04-17] MEDS: ASCORBIC ACID 500 MG TABLET (FP) PO SCH ×2 (09:54→21:40)
[2017-04-17] MEDS: MULTIVITAMINS (DAILY MVI) TABLET (FP) PO SCH (09:54)
[2017-04-17] MEDS: RANITIDINE HCL 150 MG TABLET (FP) PO SCH ×2 (09:54→21:40)
[2017-04-17] MEDS: FERROUS SO4 325 MG TABLET (FP) PO SCH ×2 (09:54→21:40)
[2017-04-17] MEDS: DOCUSATE SODIUM 100 MG CAPSULE (FP) PO SCH ×2 (09:55→21:36)
[2017-04-17] MEDS ORDERED: PT OWN MED DRAWER 7, Y5N ONE (10:00)
[2017-04-17] MEDS: PERPHENAZINE 2 MG TABLET PO SCH (10:07)
[2017-04-17] MEDS: OLANZAPINE 2.5 MG, OLANZAPINE 5 MG PO SCH (10:08)
[2017-04-17] MEDS: NYSTATIN 100,000 UNIT/GM TOPICAL CREAM 15 GM TUBE TP SCH ×2 (10:09→21:40)
[2017-04-17] MEDS: VITAMINS A AND D TOPICAL OINTMENT 60 GM TUBE TP SCH ×2 (10:09→21:40)
[2017-04-17] MEDS: POLYETHYLENE GLYCOL 3350 119 GM BTL PO SCH ×2 (10:10→21:36)
--- NOTE | 2017-04-17 12:08 | PN ---
Progress Note, Physician Chief Complaint: Mr Reynoso is without complaint. No cp, sob, n/v - Current Medication List Current Medications: Active Medications Acetaminophen (Tylenol -) 650 mg PO Q4H PRN PRN Reason: FEVER OR PAIN Last Admin: 04/14/17 14:26 Dose: 650 mg Albuterol Sulfate (Ventolin 0.083% Nebulizer Soln -) 1 amp NEB Q6H PRN PRN Reason: SHORT OF BREATH/WHEEZING Amlodipine Besylate (Norvasc -) 10 mg PO DAILY [facility] Last Admin: 04/17/17 10:11 Dose: 10 mg Ascorbic Acid (Vitamin C -) 500 mg PO BID [facility] Last Admin: 04/17/17 09:54 Dose: 500 mg Docusate Sodium (Colace -) 100 mg PO BID [facility] Last Admin: 04/17/17 09:55 Dose: Not Given Escitalopram Oxalate (Lexapro -) 20 mg PO DAILY [facility] Last Admin: 04/17/17 09:53 Dose: 20 mg Ferrous Sulfate (Feosol -) 325 mg PO BID [facility] Last Admin: 04/17/17 09:54 Dose: 325 mg Hydromorphone HCl (Dilaudid Injection -) 2 mg IM Q4H PRN PRN Reason: PAIN Dextrose (D5w -) 1,000 mls @ 83 mls/hr IV ASDIR [facility] Last Admin: 04/17/17 01:18 Dose: 83 mls/hr Piperacillin Sod/Tazobactam (Sod 2.25 gm/ Dextrose) 50 mls @ 100 mls/hr IVPB Q8H-IV CINTHYA PRN Reason: Protocol Last Admin: 04/17/17 09:54 Dose: 100 mls/hr Lorazepam (Ativan Injection -) 0.5 mg IVPUSH Q6H PRN PRN Reason: AGITATION Last Admin: 04/14/17 22:41 Dose: 0.5 mg Metoprolol Succinate (Toprol Xl -) 25 mg PO DAILY [facility] Last Admin: 04/17/17 10:11 Dose: Not Given Multivitamins/Minerals/Vitamin C (Tab-A-Vit -) 1 tab PO DAILY [facility] Last Admin: 04/17/17 09:54 Dose: 1 tab Nystatin (Mycostatin Cream -) 1 applic TP BID [facility] Last Admin: 04/17/17 10:09 Dose: 1 applic Olanzapine 2.5 mg/ Olanzapine (5 mg) 7.5 mg PO DAILY [facility] Last Admin: 04/17/17 10:08 Dose: 7.5 mg Ondansetron HCl (Zofran Injection) 4 mg IVPB Q6H PRN PRN Reason: NAUSEA Perphenazine (Trilafon) 0.5 mg PO DAILY [facility] Last Admin: 04/17/17 10:07 Dose: 0.5 mg Polyethylene Glycol (Miralax (For Daily Use) -) 17 gm PO BID [facility] Last Admin: 04/17/17 10:10 Dose: Not Given Ranitidine HCl (Zantac -) 150 mg PO BID [facility] Last Admin: 04/17/17 09:54 Dose: 150 mg Tamsulosin HCl (Flomax -) 0.4 mg PO DAILY@0830 [facility] Last Admin: 04/17/17 08:54 Dose: 0.4 mg Vitamin A/Vitamin D (Vitamin A & D Top Oint -) 1 applic TP BID [facility] Last Admin: 04/17/17 10:09 Dose: 1 applic - Objective Vital Signs: Vital Signs Temperature 36.3 C L 04/17/17 09:47 Pulse Rate 53 L 04/17/17 10:48 Respiratory Rate 18 04/17/17 09:47 Blood Pressure 137/67 04/17/17 09:47 O2 Sat by Pulse Oximetry (%) 94 L 04/17/17 10:48 Constitutional: Yes: Well Nourished, No Distress, Calm Cardiovascular: Yes: Regular Rate and Rhythm. No: Gallop, Murmur, Rub Respiratory: Yes: Regular, CTA Bilaterally. No: Rales, Rhonchi, Wheezes Gastrointestinal: Yes: Normal Bowel Sounds, Soft. No: Distention, Tenderness Genitourinary: Yes: Hematuria Extremities: Yes: Erythema Edema: No Labs: CBC, BMP 04/17/17 06:00 04/17/17 06:00 Assessment/Plan 1. Cellulitis -appreciate ID assistance -clindamycin changed to zosyn -monitor for improvement 2. UTI -ID following -now on zosyn as above 3. Hematuria -urology following -planned for cystoscopy, awaiting urology 4. Metabolic encephalopathy -at baseline 5. DAVID on CKD -at baseline -nephrology following 6. Dementia -continue home regimen 7. BPH -continue flomax -harris in place -urology following 8. Anemia -monitor -may need transfusion
--- NOTE | 2017-04-17 13:14 | PN ---
Progress Note, Physician History of Present Illness: stable leg looks a little better sitting in chair - Current Medication List Current Medications: Active Medications Acetaminophen (Tylenol -) 650 mg PO Q4H PRN PRN Reason: FEVER OR PAIN Last Admin: 04/14/17 14:26 Dose: 650 mg Albuterol Sulfate (Ventolin 0.083% Nebulizer Soln -) 1 amp NEB Q6H PRN PRN Reason: SHORT OF BREATH/WHEEZING Amlodipine Besylate (Norvasc -) 10 mg PO DAILY [facility] Last Admin: 04/17/17 10:11 Dose: 10 mg Ascorbic Acid (Vitamin C -) 500 mg PO BID [facility] Last Admin: 04/17/17 09:54 Dose: 500 mg Docusate Sodium (Colace -) 100 mg PO BID [facility] Last Admin: 04/17/17 09:55 Dose: Not Given Escitalopram Oxalate (Lexapro -) 20 mg PO DAILY [facility] Last Admin: 04/17/17 09:53 Dose: 20 mg Ferrous Sulfate (Feosol -) 325 mg PO BID [facility] Last Admin: 04/17/17 09:54 Dose: 325 mg Hydromorphone HCl (Dilaudid Injection -) 2 mg IM Q4H PRN PRN Reason: PAIN Dextrose (D5w -) 1,000 mls @ 83 mls/hr IV ASDIR [facility] Last Admin: 04/17/17 01:18 Dose: 83 mls/hr Piperacillin Sod/Tazobactam (Sod 2.25 gm/ Dextrose) 50 mls @ 100 mls/hr IVPB Q8H-IV CINTYHA PRN Reason: Protocol Last Admin: 04/17/17 09:54 Dose: 100 mls/hr Lorazepam (Ativan Injection -) 0.5 mg IVPUSH Q6H PRN PRN Reason: AGITATION Last Admin: 04/14/17 22:41 Dose: 0.5 mg Metoprolol Succinate (Toprol Xl -) 25 mg PO DAILY [facility] Last Admin: 04/17/17 10:11 Dose: Not Given Multivitamins/Minerals/Vitamin C (Tab-A-Vit -) 1 tab PO DAILY [facility] Last Admin: 04/17/17 09:54 Dose: 1 tab Nystatin (Mycostatin Cream -) 1 applic TP BID [facility] Last Admin: 04/17/17 10:09 Dose: 1 applic Olanzapine 2.5 mg/ Olanzapine (5 mg) 7.5 mg PO DAILY [facility] Last Admin: 04/17/17 10:08 Dose: 7.5 mg Ondansetron HCl (Zofran Injection) 4 mg IVPB Q6H PRN PRN Reason: NAUSEA Perphenazine (Trilafon) 0.5 mg PO DAILY [facility] Last Admin: 04/17/17 10:07 Dose: 0.5 mg Polyethylene Glycol (Miralax (For Daily Use) -) 17 gm PO BID [facility] Last Admin: 04/17/17 10:10 Dose: Not Given Ranitidine HCl (Zantac -) 150 mg PO BID [facility] Last Admin: 04/17/17 09:54 Dose: 150 mg Tamsulosin HCl (Flomax -) 0.4 mg PO DAILY@0830 [facility] Last Admin: 04/17/17 08:54 Dose: 0.4 mg Vitamin A/Vitamin D (Vitamin A & D Top Oint -) 1 applic TP BID [facility] Last Admin: 04/17/17 10:09 Dose: 1 applic - Objective Vital Signs: Vital Signs Temperature 97.3 F L 04/17/17 09:47 Pulse Rate 53 L 04/17/17 10:48 Respiratory Rate 18 04/17/17 09:47 Blood Pressure 137/67 04/17/17 09:47 O2 Sat by Pulse Oximetry (%) 94 L 04/17/17 10:48 Constitutional: Yes: No Distress, Calm Cardiovascular: Yes: Regular Rate and Rhythm Respiratory: Yes: Regular, CTA Bilaterally Gastrointestinal: Yes: Normal Bowel Sounds, Soft Musculoskeletal: Yes: Other Extremities: Yes: Erythema (improving) Neurological: Yes: Alert Psychiatric: Yes: Alert Labs: CBC, BMP 04/17/17 06:00 04/17/17 06:00 Assessment/Plan uti hematuria cough cellulitis of the rt leg arf plan continue current mgmt continue abx elevation of the legs rest as planned
--- NOTE | 2017-04-17 13:18 | PN ---
Progress Note (short form) - Note Progress Note: pt still with blood tinged vurine cbi d/c h/h stable no clots po fluids encoouraged abd soft , no cva t s/p tur of bleed p[rostate harris patent plan watch h/h ewnc po fluids c/w harris iuntil bleeding stops
--- NOTE | 2017-04-17 14:22 | PN ---
Progress Note (short form) - Note Progress Note: Renal Follow up for SUZI/CKD pt seen and examined in the hallway awake and alert no acute complaints no sob, chest pain harris still with hematuria on D5W eating well Vital Signs Temperature 97.3 F L 04/17/17 09:47 Pulse Rate 53 L 04/17/17 10:48 Respiratory Rate 18 04/17/17 09:47 Blood Pressure 137/67 04/17/17 09:47 O2 Sat by Pulse Oximetry (%) 94 L 04/17/17 10:48 Intake & Output 04/14/17 04/15/17 04/16/17 04/17/17 23:59 23:59 23:59 23:59 Intake Total 650 7350 6610 360 Output Total 27443 53836 8100 400 Balance -50863 -7550 -1490 -40 Gen: NAD, awake and alert CVS: RRR, No M/R Lungs: CTA Abd: soft NT/ND Ext: No edema, clubbing or cyanosis Gu: CBI, harris in place CBC, BMP 04/17/17 06:00 04/17/17 06:00 Current Medications Acetaminophen (Tylenol -) 650 mg PO Q4H PRN PRN Reason: FEVER OR PAIN Last Admin: 04/14/17 14:26 Dose: 650 mg Albuterol Sulfate (Ventolin 0.083% Nebulizer Soln -) 1 amp NEB Q6H PRN PRN Reason: SHORT OF BREATH/WHEEZING Amlodipine Besylate (Norvasc -) 10 mg PO DAILY [facility] Last Admin: 04/17/17 10:11 Dose: 10 mg Ascorbic Acid (Vitamin C -) 500 mg PO BID [facility] Last Admin: 04/17/17 09:54 Dose: 500 mg Docusate Sodium (Colace -) 100 mg PO BID [facility] Last Admin: 04/17/17 09:55 Dose: Not Given Escitalopram Oxalate (Lexapro -) 20 mg PO DAILY [facility] Last Admin: 04/17/17 09:53 Dose: 20 mg Ferrous Sulfate (Feosol -) 325 mg PO BID [facility] Last Admin: 04/17/17 09:54 Dose: 325 mg Hydromorphone HCl (Dilaudid Injection -) 2 mg IM Q4H PRN PRN Reason: PAIN Dextrose (D5w -) 1,000 mls @ 83 mls/hr IV ASDIR [facility] Last Admin: 04/17/17 01:18 Dose: 83 mls/hr Piperacillin Sod/Tazobactam (Sod 2.25 gm/ Dextrose) 50 mls @ 100 mls/hr IVPB Q8H-IV CINTHYA PRN Reason: Protocol Last Admin: 04/17/17 09:54 Dose: 100 mls/hr Lorazepam (Ativan Injection -) 0.5 mg IVPUSH Q6H PRN PRN Reason: AGITATION Last Admin: 04/14/17 22:41 Dose: 0.5 mg Metoprolol Succinate (Toprol Xl -) 25 mg PO DAILY [facility] Last Admin: 04/17/17 10:11 Dose: Not Given Multivitamins/Minerals/Vitamin C (Tab-A-Vit -) 1 tab PO DAILY [facility] Last Admin: 04/17/17 09:54 Dose: 1 tab Nystatin (Mycostatin Cream -) 1 applic TP BID [facility] Last Admin: 04/17/17 10:09 Dose: 1 applic Olanzapine 2.5 mg/ Olanzapine (5 mg) 7.5 mg PO DAILY [facility] Last Admin: 04/17/17 10:08 Dose: 7.5 mg Ondansetron HCl (Zofran Injection) 4 mg IVPB Q6H PRN PRN Reason: NAUSEA Perphenazine (Trilafon) 0.5 mg PO DAILY [facility] Last Admin: 04/17/17 10:07 Dose: 0.5 mg Polyethylene Glycol (Miralax (For Daily Use) -) 17 gm PO BID [facility] Last Admin: 04/17/17 10:10 Dose: Not Given Ranitidine HCl (Zantac -) 150 mg PO BID [facility] Last Admin: 04/17/17 09:54 Dose: 150 mg Tamsulosin HCl (Flomax -) 0.4 mg PO DAILY@0830 [facility] Last Admin: 04/17/17 08:54 Dose: 0.4 mg Vitamin A/Vitamin D (Vitamin A & D Top Oint -) 1 applic TP BID [facility] Last Admin: 04/17/17 10:09 Dose: 1 applic A/P 86 year old Gentleman with PMhx of CKD (baseline 2.1-2.6), CHF, Anemia, GIB, Hyperlipidemia s/p recent admission for acute on chronic anemia who was readmitted from [place] with gross hematuria #Hematuria s/p Cysto that showed large clots in the bladder and bleeding prostate s/p TURP Trend H/H CBI discontinued urology following #SUZI on CKD Renal function stable will d/c IVF, oral intake as tolerated Trend BMP #Hypertension Continue amlodipine no DIPTI/ARB at this time #Anemia Hgb continues to downtrend in setting of hemeaturia trend CBC Transfuse for Hgb less then 7 will give Epogen 94601 units given pt with baseline CKD #Hypernatremia improved s/p D5W x 24 hours trend with oral intake Teja Mercedes DO
[2017-04-17] MEDS ORDERED: EPOETIN ALFA 20,000 UNIT/1 ML VIAL SQ ONE (16:00)
[2017-04-18] MEDS ORDERED: DEXTROSE 5%-WATER - 50 ML IVPB ONE ×3 (00:40→17:32)
[2017-04-18] MEDS ORDERED: PIPERACILLIN/TAZOBACTAM 2.25 GM VIAL IVPB ONE ×3 (00:40→17:32)
[2017-04-18] MEDS: PIPERACILLIN/TAZOB 2.25 GM 2.25 GM in DEXTROSE 5%-WATER - 50 ML IVPB SCH ×3 (01:06→17:37)
[2017-04-18] MEDS: TAMSULOSIN HCL 0.4 MG CAP.ER.24H (FP) PO SCH (08:30)
[2017-04-18 08:47] LABS: BASOPHIL 0.4 % (0-2.0); EOSINOPHIL 4.7 % (0-4.5); MCH 31.4 pg (25.7-33.7); MCHC 33.4 g/dl (32.0-35.9); MEAN CELL VOLUME 93.8 fl (80-96); MEAN PLT VOLUME 8.4 fl (7.5-11.1); NEUTROPHILS 82.3 % (42.8-82.8); PLATELET COUNT 270 K/MM3 (134-434); RDW 15.2 % (11.9-15.9); WHITE BLOOD COUNT 8.7 K/mm3 (4.0-10.0)
[2017-04-18 09:53] LABS: ANION GAP 9 (8-16); CALCIUM 8.6 mg/dL (8.5-10.1); CO2 26 mmol/L (21-32); GLUCOSE,RANDOM 83 mg/dL (74-106)
[2017-04-18 09:54] LABS: CREATININE 2.5 mg/dL (0.7-1.3); PHOSPHOROUS 3.5 mg/dL (2.5-4.9)
--- NOTE | 2017-04-18 10:19 | PN ---
Progress Note (short form) - Note Progress Note: agitated harris mostly clear int pink urine no clots c/w harris until uriine clear
[2017-04-18] MEDS: METOPROLOL SUCCINATE 25 MG TAB.SR.24H (FP) PO SCH (11:21)
[2017-04-18] MEDS: RANITIDINE HCL 150 MG TABLET (FP) PO SCH ×2 (11:22→21:01)
[2017-04-18] MEDS: FERROUS SO4 325 MG TABLET (FP) PO SCH ×2 (11:24→21:01)
[2017-04-18] MEDS: amLODIPine BESYLATE 10 MG TABLET (FP) PO SCH (11:24)
[2017-04-18] MEDS: MULTIVITAMINS (DAILY MVI) TABLET (FP) PO SCH (11:25)
[2017-04-18] MEDS: ESCITALOPRAM OXALATE 20 MG TABLET (FP) PO SCH (11:25)
[2017-04-18] MEDS: ASCORBIC ACID 500 MG TABLET (FP) PO SCH ×2 (11:25→21:01)
[2017-04-18] MEDS: DOCUSATE SODIUM 100 MG CAPSULE (FP) PO SCH ×2 (11:25→21:00)
[2017-04-18] MEDS: POLYETHYLENE GLYCOL 3350 119 GM BTL PO SCH ×2 (11:25→21:00)
[2017-04-18] MEDS: VITAMINS A AND D TOPICAL OINTMENT 60 GM TUBE TP SCH ×2 (11:26→21:01)
[2017-04-18] MEDS: NYSTATIN 100,000 UNIT/GM TOPICAL CREAM 15 GM TUBE TP SCH ×2 (11:26→21:01)
[2017-04-18] MEDS ORDERED: PT OWN MED DRAWER 7, Y5N ONE (11:48)
[2017-04-18] MEDS: OLANZAPINE 2.5 MG, OLANZAPINE 5 MG PO SCH (11:50)
[2017-04-18] MEDS: PERPHENAZINE 2 MG TABLET PO SCH (11:50)
--- NOTE | 2017-04-18 12:58 | PN ---
Progress Note, Physician History of Present Illness: stable leg looks a little better dressing present - Current Medication List Current Medications: Active Medications Acetaminophen (Tylenol -) 650 mg PO Q4H PRN PRN Reason: FEVER OR PAIN Last Admin: 04/14/17 14:26 Dose: 650 mg Albuterol Sulfate (Ventolin 0.083% Nebulizer Soln -) 1 amp NEB Q6H PRN PRN Reason: SHORT OF BREATH/WHEEZING Amlodipine Besylate (Norvasc -) 10 mg PO DAILY [facility] Last Admin: 04/18/17 11:24 Dose: 10 mg Ascorbic Acid (Vitamin C -) 500 mg PO BID [facility] Last Admin: 04/18/17 11:25 Dose: 500 mg Docusate Sodium (Colace -) 100 mg PO BID [facility] Last Admin: 04/18/17 11:25 Dose: Not Given Escitalopram Oxalate (Lexapro -) 20 mg PO DAILY [facility] Last Admin: 04/18/17 11:25 Dose: 20 mg Ferrous Sulfate (Feosol -) 325 mg PO BID [facility] Last Admin: 04/18/17 11:24 Dose: 325 mg Hydromorphone HCl (Dilaudid Injection -) 2 mg IM Q4H PRN PRN Reason: PAIN Piperacillin Sod/Tazobactam (Sod 2.25 gm/ Dextrose) 50 mls @ 100 mls/hr IVPB Q8H-IV CINTHYA PRN Reason: Protocol Last Admin: 04/18/17 11:27 Dose: 100 mls/hr Lorazepam (Ativan Injection -) 0.5 mg IVPUSH Q6H PRN PRN Reason: AGITATION Last Admin: 04/17/17 23:57 Dose: 0.5 mg Metoprolol Succinate (Toprol Xl -) 25 mg PO DAILY [facility] Last Admin: 04/18/17 11:21 Dose: 25 mg Multivitamins/Minerals/Vitamin C (Tab-A-Vit -) 1 tab PO DAILY [facility] Last Admin: 04/18/17 11:25 Dose: 1 tab Nystatin (Mycostatin Cream -) 1 applic TP BID [facility] Last Admin: 04/18/17 11:26 Dose: 1 applic Olanzapine 2.5 mg/ Olanzapine (5 mg) 7.5 mg PO DAILY [facility] Last Admin: 04/18/17 11:50 Dose: 7.5 mg Ondansetron HCl (Zofran Injection) 4 mg IVPB Q6H PRN PRN Reason: NAUSEA Perphenazine (Trilafon) 0.5 mg PO DAILY [facility] Last Admin: 04/18/17 11:50 Dose: 0.5 mg Polyethylene Glycol (Miralax (For Daily Use) -) 17 gm PO BID [facility] Last Admin: 04/18/17 11:25 Dose: Not Given Ranitidine HCl (Zantac -) 150 mg PO BID [facility] Last Admin: 04/18/17 11:22 Dose: 150 mg Tamsulosin HCl (Flomax -) 0.4 mg PO DAILY@0830 [facility] Last Admin: 04/18/17 08:30 Dose: 0.4 mg Vitamin A/Vitamin D (Vitamin A & D Top Oint -) 1 applic TP BID [facility] Last Admin: 04/18/17 11:26 Dose: 1 applic - Objective Vital Signs: Vital Signs Temperature 97.4 F L 04/18/17 10:00 Pulse Rate 55 L 04/18/17 10:00 Respiratory Rate 20 04/18/17 10:00 Blood Pressure 139/56 04/18/17 10:00 O2 Sat by Pulse Oximetry (%) 97 04/17/17 21:00 Constitutional: Yes: No Distress, Calm Cardiovascular: Yes: Regular Rate and Rhythm Respiratory: Yes: Regular, CTA Bilaterally Gastrointestinal: Yes: Normal Bowel Sounds, Soft Genitourinary: Yes: Seay Present Musculoskeletal: Yes: Other Extremities: Yes: Other Integumentary: Yes: Erythema (improving) Neurological: Yes: Alert Labs: CBC, BMP 04/18/17 06:30 04/18/17 06:30 Assessment/Plan uti hematuria cough cellulitis of the rt leg arf plan continue current mgmt continue abx elevation of the legs rest as planned patient improving urology note noted
--- NOTE | 2017-04-18 14:41 | PATH ---
Surgical Pathology Report Patient Name: MEREDITH BAJWA Med. Rec. #: [id number] /Age/Gender: 1930 (Age: 86) / M Account: [id number] Location: [facility] MED/SURG Taken: 04/14/2017 Received: 04/17/2017 Reported: 04/18/2017 Physicians: Vishal Thacker M.D. Specimen(s) Received A: BLOOD CLOTS B: PROSTATE CHIPS Clinical History Gross hematuria Final Diagnosis A. BLOOD CLOTS, EVACUATION: CLOTTED BLOOD. B. PROSTATE TISSUE, TUR: BENIGN PROSTATE TISSUE WITH GLANDULAR AND STROMAL HYPERPLASIA AND FOCI OF ACUTE AND CHRONIC INFLAMMATION; CLOTTED BLOOD. Electronically Signed Sandoval Cunningham M.D. Gross Description A. Received in formalin labeled "blood clots" is a 9.0 x 8.5 x 1.0 cm aggregate of red-brown blood clot. Plc Engineer sections are submitted in one cassette. B. Received in formalin labeled "prostate tissue" is a less than 1 g, 1.5 x 1.5 x 0.3 cm aggregate of sotelo, firm to rubbery portions of tissue admixed with blood clot, consistent with prostate tissue. The specimen is entirely submitted in 2 cassettes. 04/17/201704/17/2017
--- NOTE | 2017-04-18 15:08 | PN ---
Progress Note, Physician Chief Complaint: Mr Reynoso is without complaint. No cp, sob, n/v - Current Medication List Current Medications: Active Medications Acetaminophen (Tylenol -) 650 mg PO Q4H PRN PRN Reason: FEVER OR PAIN Last Admin: 04/14/17 14:26 Dose: 650 mg Albuterol Sulfate (Ventolin 0.083% Nebulizer Soln -) 1 amp NEB Q6H PRN PRN Reason: SHORT OF BREATH/WHEEZING Amlodipine Besylate (Norvasc -) 10 mg PO DAILY [facility] Last Admin: 04/18/17 11:24 Dose: 10 mg Ascorbic Acid (Vitamin C -) 500 mg PO BID [facility] Last Admin: 04/18/17 11:25 Dose: 500 mg Docusate Sodium (Colace -) 100 mg PO BID [facility] Last Admin: 04/18/17 11:25 Dose: Not Given Escitalopram Oxalate (Lexapro -) 20 mg PO DAILY [facility] Last Admin: 04/18/17 11:25 Dose: 20 mg Ferrous Sulfate (Feosol -) 325 mg PO BID [facility] Last Admin: 04/18/17 11:24 Dose: 325 mg Hydromorphone HCl (Dilaudid Injection -) 2 mg IM Q4H PRN PRN Reason: PAIN Piperacillin Sod/Tazobactam (Sod 2.25 gm/ Dextrose) 50 mls @ 100 mls/hr IVPB Q8H-IV CINTHYA PRN Reason: Protocol Last Admin: 04/18/17 11:27 Dose: 100 mls/hr Lorazepam (Ativan Injection -) 0.5 mg IVPUSH Q6H PRN PRN Reason: AGITATION Last Admin: 04/17/17 23:57 Dose: 0.5 mg Metoprolol Succinate (Toprol Xl -) 25 mg PO DAILY [facility] Last Admin: 04/18/17 11:21 Dose: 25 mg Multivitamins/Minerals/Vitamin C (Tab-A-Vit -) 1 tab PO DAILY [facility] Last Admin: 04/18/17 11:25 Dose: 1 tab Nystatin (Mycostatin Cream -) 1 applic TP BID [facility] Last Admin: 04/18/17 11:26 Dose: 1 applic Olanzapine 2.5 mg/ Olanzapine (5 mg) 7.5 mg PO DAILY [facility] Last Admin: 04/18/17 11:50 Dose: 7.5 mg Ondansetron HCl (Zofran Injection) 4 mg IVPB Q6H PRN PRN Reason: NAUSEA Perphenazine (Trilafon) 0.5 mg PO DAILY [facility] Last Admin: 04/18/17 11:50 Dose: 0.5 mg Polyethylene Glycol (Miralax (For Daily Use) -) 17 gm PO BID [facility] Last Admin: 04/18/17 11:25 Dose: Not Given Ranitidine HCl (Zantac -) 150 mg PO BID [facility] Last Admin: 04/18/17 11:22 Dose: 150 mg Tamsulosin HCl (Flomax -) 0.4 mg PO DAILY@0830 [facility] Last Admin: 04/18/17 08:30 Dose: 0.4 mg Vitamin A/Vitamin D (Vitamin A & D Top Oint -) 1 applic TP BID [facility] Last Admin: 04/18/17 11:26 Dose: 1 applic - Objective Vital Signs: Vital Signs Temperature 36.3 C L 04/18/17 10:00 Pulse Rate 55 L 04/18/17 10:00 Respiratory Rate 20 04/18/17 10:00 Blood Pressure 139/56 04/18/17 10:00 O2 Sat by Pulse Oximetry (%) 96 04/18/17 09:00 Constitutional: Yes: Well Nourished, No Distress, Calm Cardiovascular: Yes: Regular Rate and Rhythm. No: Gallop, Murmur, Rub Respiratory: Yes: Regular, CTA Bilaterally. No: Rales, Rhonchi, Wheezes Gastrointestinal: Yes: Normal Bowel Sounds, Soft. No: Distention, Tenderness Extremities: Yes: Erythema Edema: No Labs: CBC, BMP 04/18/17 06:30 04/18/17 06:30 Assessment/Plan 1. Cellulitis -continue zosyn per ID -cellulitis improving 2. UTI -ID following -now on zosyn as above 3. Hematuria -urology following -? timing of cystoscopy -urine clearing 4. Metabolic encephalopathy -at baseline 5. DAVID on CKD -at baseline -nephrology following 6. Dementia -continue home regimen 7. BPH -continue flomax -harris in place -urology following 8. Anemia -improving
--- NOTE | 2017-04-18 15:24 | PN ---
Progress Note (short form) - Note Progress Note: Renal Follow up for SUZI/CKD pt seen and examined at the bedside no overnight events pt without any complaints continues to have hematuria good urine production Vital Signs Temperature 97.6 F 04/18/17 15:11 Pulse Rate 56 L 04/18/17 15:11 Respiratory Rate 20 04/18/17 15:11 Blood Pressure 139/56 04/18/17 10:00 O2 Sat by Pulse Oximetry (%) 96 04/18/17 09:00 Intake & Output 04/15/17 04/16/17 04/17/17 04/18/17 23:59 23:59 23:59 23:59 Intake Total 7350 6610 720 50 Output Total 31890 8100 400 800 Balance -7550 -1490 320 -750 Gen: NAD, awake and alert CVS: RRR, No M/R Lungs: CTA Abd: soft NT/ND Ext: No edema, clubbing or cyanosis Gu: CBI, harris in place CBC, BMP 04/18/17 06:30 04/18/17 06:30 Current Medications Acetaminophen (Tylenol -) 650 mg PO Q4H PRN PRN Reason: FEVER OR PAIN Last Admin: 04/14/17 14:26 Dose: 650 mg Albuterol Sulfate (Ventolin 0.083% Nebulizer Soln -) 1 amp NEB Q6H PRN PRN Reason: SHORT OF BREATH/WHEEZING Amlodipine Besylate (Norvasc -) 10 mg PO DAILY [facility] Last Admin: 04/18/17 11:24 Dose: 10 mg Ascorbic Acid (Vitamin C -) 500 mg PO BID [facility] Last Admin: 04/18/17 11:25 Dose: 500 mg Docusate Sodium (Colace -) 100 mg PO BID [facility] Last Admin: 04/18/17 11:25 Dose: Not Given Escitalopram Oxalate (Lexapro -) 20 mg PO DAILY [facility] Last Admin: 04/18/17 11:25 Dose: 20 mg Ferrous Sulfate (Feosol -) 325 mg PO BID [facility] Last Admin: 04/18/17 11:24 Dose: 325 mg Hydromorphone HCl (Dilaudid Injection -) 2 mg IM Q4H PRN PRN Reason: PAIN Piperacillin Sod/Tazobactam (Sod 2.25 gm/ Dextrose) 50 mls @ 100 mls/hr IVPB Q8H-IV CINTHYA PRN Reason: Protocol Last Admin: 04/18/17 11:27 Dose: 100 mls/hr Lorazepam (Ativan Injection -) 0.5 mg IVPUSH Q6H PRN PRN Reason: AGITATION Last Admin: 04/17/17 23:57 Dose: 0.5 mg Metoprolol Succinate (Toprol Xl -) 25 mg PO DAILY [facility] Last Admin: 04/18/17 11:21 Dose: 25 mg Multivitamins/Minerals/Vitamin C (Tab-A-Vit -) 1 tab PO DAILY [facility] Last Admin: 04/18/17 11:25 Dose: 1 tab Nystatin (Mycostatin Cream -) 1 applic TP BID [facility] Last Admin: 04/18/17 11:26 Dose: 1 applic Olanzapine 2.5 mg/ Olanzapine (5 mg) 7.5 mg PO DAILY [facility] Last Admin: 04/18/17 11:50 Dose: 7.5 mg Ondansetron HCl (Zofran Injection) 4 mg IVPB Q6H PRN PRN Reason: NAUSEA Perphenazine (Trilafon) 0.5 mg PO DAILY [facility] Last Admin: 04/18/17 11:50 Dose: 0.5 mg Polyethylene Glycol (Miralax (For Daily Use) -) 17 gm PO BID [facility] Last Admin: 04/18/17 11:25 Dose: Not Given Ranitidine HCl (Zantac -) 150 mg PO BID [facility] Last Admin: 04/18/17 11:22 Dose: 150 mg Tamsulosin HCl (Flomax -) 0.4 mg PO DAILY@0830 [facility] Last Admin: 04/18/17 08:30 Dose: 0.4 mg Vitamin A/Vitamin D (Vitamin A & D Top Oint -) 1 applic TP BID [facility] Last Admin: 04/18/17 11:26 Dose: 1 applic A/P 86 year old Gentleman with PMhx of CKD (baseline 2.1-2.6), CHF, Anemia, GIB, Hyperlipidemia s/p recent admission for acute on chronic anemia who was readmitted from [place] with gross hematuria #Hematuria s/p Cysto that showed large clots in the bladder and bleeding prostate s/p TURP Urology followup maintain harris as per urology #SUZI on CKD Renal function stable off IVF and diuretics monitor volume status as pt may need standing diuretics #Hypertension Continue amlodipine no DIPTI/ARB at this time #Anemia trend H/H with hematuria #Hypernatremia improved oral water intake as tolerated Teja Mercedes DO
[2017-04-18] MEDS: ACETAMINOPHEN 325 MG TABLET (FP) PO PRN (21:01)
[2017-04-19] MEDS ORDERED: PIPERACILLIN/TAZOBACTAM 2.25 GM VIAL IVPB ONE ×3 (00:09→17:29)
[2017-04-19] MEDS ORDERED: DEXTROSE 5%-WATER - 50 ML IVPB ONE ×3 (00:09→17:30)
[2017-04-19] MEDS: PIPERACILLIN/TAZOB 2.25 GM 2.25 GM in DEXTROSE 5%-WATER - 50 ML IVPB SCH ×3 (01:00→17:56)
[2017-04-19 07:39] LABS: BASOPHIL 0.5 % (0-2.0); EOSINOPHIL 3.6 % (0-4.5); MCH 31.5 pg (25.7-33.7); MEAN CELL VOLUME 92.7 fl (80-96); MEAN PLT VOLUME 8.3 fl (7.5-11.1); NEUTROPHILS 83.5 % (42.8-82.8); PLATELET COUNT 298 K/MM3 (134-434); RDW 15.1 % (11.9-15.9); WHITE BLOOD COUNT 8.3 K/mm3 (4.0-10.0)
[2017-04-19 08:29] LABS: ANION GAP 10 (8-16); CALCIUM 8.7 mg/dL (8.5-10.1); CO2 26 mmol/L (21-32); CREATININE 2.5 mg/dL (0.7-1.3); GLUCOSE,RANDOM 90 mg/dL (74-106); MAGNESIUM 1.8 mg/dL (1.8-2.4); PHOSPHOROUS 3.3 mg/dL (2.5-4.9)
[2017-04-19] MEDS ORDERED: PT OWN MED DRAWER 7, Y5N ONE (09:28)
[2017-04-19] MEDS: FERROUS SO4 325 MG TABLET (FP) PO SCH ×2 (09:36→21:28)
[2017-04-19] MEDS: MULTIVITAMINS (DAILY MVI) TABLET (FP) PO SCH (09:36)
[2017-04-19] MEDS: TAMSULOSIN HCL 0.4 MG CAP.ER.24H (FP) PO SCH (09:36)
[2017-04-19] MEDS: ASCORBIC ACID 500 MG TABLET (FP) PO SCH ×2 (09:36→21:27)
[2017-04-19] MEDS: ESCITALOPRAM OXALATE 20 MG TABLET (FP) PO SCH (09:37)
[2017-04-19] MEDS: RANITIDINE HCL 150 MG TABLET (FP) PO SCH ×2 (09:37→21:27)
[2017-04-19] MEDS: DOCUSATE SODIUM 100 MG CAPSULE (FP) PO SCH ×2 (09:37→21:27)
[2017-04-19] MEDS: METOPROLOL SUCCINATE 25 MG TAB.SR.24H (FP) PO SCH (09:38)
[2017-04-19] MEDS: amLODIPine BESYLATE 10 MG TABLET (FP) PO SCH (09:38)
[2017-04-19] MEDS: VITAMINS A AND D TOPICAL OINTMENT 60 GM TUBE TP SCH ×2 (09:41→21:27)
[2017-04-19] MEDS: OLANZAPINE 2.5 MG, OLANZAPINE 5 MG PO SCH (09:42)
[2017-04-19] MEDS: NYSTATIN 100,000 UNIT/GM TOPICAL CREAM 15 GM TUBE TP SCH ×2 (09:43→22:00)
[2017-04-19] MEDS: POLYETHYLENE GLYCOL 3350 119 GM BTL PO SCH ×2 (09:43→21:28)
[2017-04-19] MEDS: PERPHENAZINE 2 MG TABLET PO SCH (10:00)
--- NOTE | 2017-04-19 12:27 | PN ---
Progress Note, Physician Chief Complaint: Mr Reynoso is without complaint. No cp, sob, n/v - Current Medication List Current Medications: Active Medications Acetaminophen (Tylenol -) 650 mg PO Q4H PRN PRN Reason: FEVER OR PAIN Last Admin: 04/18/17 21:01 Dose: 650 mg Albuterol Sulfate (Ventolin 0.083% Nebulizer Soln -) 1 amp NEB Q6H PRN PRN Reason: SHORT OF BREATH/WHEEZING Amlodipine Besylate (Norvasc -) 10 mg PO DAILY [facility] Last Admin: 04/19/17 09:38 Dose: 10 mg Ascorbic Acid (Vitamin C -) 500 mg PO BID [facility] Last Admin: 04/19/17 09:36 Dose: 500 mg Docusate Sodium (Colace -) 100 mg PO BID [facility] Last Admin: 04/19/17 09:37 Dose: 100 mg Escitalopram Oxalate (Lexapro -) 20 mg PO DAILY [facility] Last Admin: 04/19/17 09:37 Dose: 20 mg Ferrous Sulfate (Feosol -) 325 mg PO BID [facility] Last Admin: 04/19/17 09:36 Dose: 325 mg Hydromorphone HCl (Dilaudid Injection -) 2 mg IM Q4H PRN PRN Reason: PAIN Piperacillin Sod/Tazobactam (Sod 2.25 gm/ Dextrose) 50 mls @ 100 mls/hr IVPB Q8H-IV CINTHYA PRN Reason: Protocol Last Admin: 04/19/17 09:38 Dose: 100 mls/hr Lorazepam (Ativan Injection -) 0.5 mg IVPUSH Q6H PRN PRN Reason: AGITATION Last Admin: 04/17/17 23:57 Dose: 0.5 mg Metoprolol Succinate (Toprol Xl -) 25 mg PO DAILY [facility] Last Admin: 04/19/17 09:38 Dose: 25 mg Multivitamins/Minerals/Vitamin C (Tab-A-Vit -) 1 tab PO DAILY [facility] Last Admin: 04/19/17 09:36 Dose: 1 tab Nystatin (Mycostatin Cream -) 1 applic TP BID [facility] Last Admin: 04/19/17 09:43 Dose: 1 applic Olanzapine 2.5 mg/ Olanzapine (5 mg) 7.5 mg PO DAILY [facility] Last Admin: 04/19/17 09:42 Dose: 7.5 mg Ondansetron HCl (Zofran Injection) 4 mg IVPB Q6H PRN PRN Reason: NAUSEA Perphenazine (Trilafon) 0.5 mg PO DAILY [facility] Last Admin: 04/18/17 11:50 Dose: 0.5 mg Polyethylene Glycol (Miralax (For Daily Use) -) 17 gm PO BID [facility] Last Admin: 04/19/17 09:43 Dose: Not Given Ranitidine HCl (Zantac -) 150 mg PO BID [facility] Last Admin: 04/19/17 09:37 Dose: 150 mg Tamsulosin HCl (Flomax -) 0.4 mg PO DAILY@0830 [facility] Last Admin: 04/19/17 09:36 Dose: 0.4 mg Vitamin A/Vitamin D (Vitamin A & D Top Oint -) 1 applic TP BID [facility] Last Admin: 04/19/17 09:41 Dose: 1 applic - Objective Vital Signs: Vital Signs Temperature 36.4 C L 04/19/17 06:00 Pulse Rate 61 04/19/17 06:00 Respiratory Rate 20 04/19/17 06:00 Blood Pressure 151/56 04/19/17 06:00 O2 Sat by Pulse Oximetry (%) 97 04/18/17 21:00 Constitutional: Yes: Well Nourished, No Distress, Calm Cardiovascular: Yes: Regular Rate and Rhythm. No: Gallop, Murmur, Rub Respiratory: Yes: Regular, CTA Bilaterally. No: Rales, Rhonchi, Wheezes Gastrointestinal: Yes: Normal Bowel Sounds, Soft. No: Distention, Tenderness Extremities: Yes: WNL Edema: No Labs: CBC, BMP 04/19/17 06:00 04/19/17 06:00 Assessment/Plan 1. Cellulitis -continue zosyn per ID -cellulitis improving 2. UTI -ID following -now on zosyn as above 3. Hematuria -urology following -urine clearing -urology to decide cystoscopy vs harris removal 4. Metabolic encephalopathy -at baseline 5. DAVID on CKD -at baseline -nephrology following 6. Dementia -continue home regimen 7. BPH -continue flomax -harris in place -urology following 8. Anemia -improving
--- NOTE | 2017-04-19 12:33 | PN ---
Progress Note, Physician History of Present Illness: stable leg started to look better - Current Medication List Current Medications: Active Medications Acetaminophen (Tylenol -) 650 mg PO Q4H PRN PRN Reason: FEVER OR PAIN Last Admin: 04/18/17 21:01 Dose: 650 mg Albuterol Sulfate (Ventolin 0.083% Nebulizer Soln -) 1 amp NEB Q6H PRN PRN Reason: SHORT OF BREATH/WHEEZING Amlodipine Besylate (Norvasc -) 10 mg PO DAILY [facility] Last Admin: 04/19/17 09:38 Dose: 10 mg Ascorbic Acid (Vitamin C -) 500 mg PO BID [facility] Last Admin: 04/19/17 09:36 Dose: 500 mg Docusate Sodium (Colace -) 100 mg PO BID [facility] Last Admin: 04/19/17 09:37 Dose: 100 mg Escitalopram Oxalate (Lexapro -) 20 mg PO DAILY [facility] Last Admin: 04/19/17 09:37 Dose: 20 mg Ferrous Sulfate (Feosol -) 325 mg PO BID [facility] Last Admin: 04/19/17 09:36 Dose: 325 mg Hydromorphone HCl (Dilaudid Injection -) 2 mg IM Q4H PRN PRN Reason: PAIN Piperacillin Sod/Tazobactam (Sod 2.25 gm/ Dextrose) 50 mls @ 100 mls/hr IVPB Q8H-IV CINTHYA PRN Reason: Protocol Last Admin: 04/19/17 09:38 Dose: 100 mls/hr Lorazepam (Ativan Injection -) 0.5 mg IVPUSH Q6H PRN PRN Reason: AGITATION Last Admin: 04/17/17 23:57 Dose: 0.5 mg Metoprolol Succinate (Toprol Xl -) 25 mg PO DAILY [facility] Last Admin: 04/19/17 09:38 Dose: 25 mg Multivitamins/Minerals/Vitamin C (Tab-A-Vit -) 1 tab PO DAILY [facility] Last Admin: 04/19/17 09:36 Dose: 1 tab Nystatin (Mycostatin Cream -) 1 applic TP BID [facility] Last Admin: 04/19/17 09:43 Dose: 1 applic Olanzapine 2.5 mg/ Olanzapine (5 mg) 7.5 mg PO DAILY [facility] Last Admin: 04/19/17 09:42 Dose: 7.5 mg Ondansetron HCl (Zofran Injection) 4 mg IVPB Q6H PRN PRN Reason: NAUSEA Perphenazine (Trilafon) 0.5 mg PO DAILY [facility] Last Admin: 04/18/17 11:50 Dose: 0.5 mg Polyethylene Glycol (Miralax (For Daily Use) -) 17 gm PO BID [facility] Last Admin: 04/19/17 09:43 Dose: Not Given Ranitidine HCl (Zantac -) 150 mg PO BID [facility] Last Admin: 04/19/17 09:37 Dose: 150 mg Tamsulosin HCl (Flomax -) 0.4 mg PO DAILY@829 [facility] Last Admin: 04/19/17 09:36 Dose: 0.4 mg Vitamin A/Vitamin D (Vitamin A & D Top Oint -) 1 applic TP BID [facility] Last Admin: 04/19/17 09:41 Dose: 1 applic - Objective Vital Signs: Vital Signs Temperature 97.5 F L 04/19/17 06:00 Pulse Rate 61 04/19/17 06:00 Respiratory Rate 20 04/19/17 06:00 Blood Pressure 151/56 04/19/17 06:00 O2 Sat by Pulse Oximetry (%) 97 04/18/17 21:00 Constitutional: Yes: No Distress, Calm Cardiovascular: Yes: Regular Rate and Rhythm Respiratory: Yes: Regular, CTA Bilaterally Musculoskeletal: Yes: Other Extremities: Yes: Other (erythema resolving wounds healing) Integumentary: Yes: Erythema Wound/Incision: Yes: Other Neurological: Yes: Alert Psychiatric: Yes: Alert Labs: CBC, BMP 04/19/17 06:00 04/19/17 06:00 Assessment/Plan uti hematuria cough cellulitis of the rt leg arf plan continue current mgmt continue abx elevation of the legs rest as planned patient improving
--- NOTE | 2017-04-19 17:32 | PN ---
Progress Note (short form) - Note Progress Note: Renal Follow up for SUZI/CKD pt seen and examined in the hallway awake and alert no acute complaints harris in place, still has hematuria but better today denies any sob, chest pain, abd pain, N/V/D Vital Signs Temperature 98.0 F 04/19/17 15:54 Pulse Rate 53 L 04/19/17 15:54 Respiratory Rate 20 04/19/17 15:54 Blood Pressure 147/66 04/19/17 15:54 O2 Sat by Pulse Oximetry (%) 98 04/19/17 09:00 Intake & Output 04/16/17 04/17/17 04/18/17 04/19/17 23:59 23:59 23:59 23:59 Intake Total 6610 720 170 690 Output Total 8100 400 1100 400 Balance -1490 320 -930 290 Gen: NAD, awake and alert CVS: RRR, No M/R Lungs: CTA Abd: soft NT/ND Ext: Trace to 1+ edema in LE Gu: CBI, harris in place CBC, BMP 04/19/17 06:00 04/19/17 06:00 Current Medications Acetaminophen (Tylenol -) 650 mg PO Q4H PRN PRN Reason: FEVER OR PAIN Last Admin: 04/18/17 21:01 Dose: 650 mg Albuterol Sulfate (Ventolin 0.083% Nebulizer Soln -) 1 amp NEB Q6H PRN PRN Reason: SHORT OF BREATH/WHEEZING Amlodipine Besylate (Norvasc -) 10 mg PO DAILY [facility] Last Admin: 04/19/17 09:38 Dose: 10 mg Ascorbic Acid (Vitamin C -) 500 mg PO BID [facility] Last Admin: 04/19/17 09:36 Dose: 500 mg Docusate Sodium (Colace -) 100 mg PO BID [facility] Last Admin: 04/19/17 09:37 Dose: 100 mg Escitalopram Oxalate (Lexapro -) 20 mg PO DAILY [facility] Last Admin: 04/19/17 09:37 Dose: 20 mg Ferrous Sulfate (Feosol -) 325 mg PO BID [facility] Last Admin: 04/19/17 09:36 Dose: 325 mg Hydromorphone HCl (Dilaudid Injection -) 2 mg IM Q4H PRN PRN Reason: PAIN Piperacillin Sod/Tazobactam (Sod 2.25 gm/ Dextrose) 50 mls @ 100 mls/hr IVPB Q8H-IV CINTHYA PRN Reason: Protocol Last Admin: 04/19/17 09:38 Dose: 100 mls/hr Lorazepam (Ativan Injection -) 0.5 mg IVPUSH Q6H PRN PRN Reason: AGITATION Last Admin: 04/17/17 23:57 Dose: 0.5 mg Metoprolol Succinate (Toprol Xl -) 25 mg PO DAILY [facility] Last Admin: 04/19/17 09:38 Dose: 25 mg Multivitamins/Minerals/Vitamin C (Tab-A-Vit -) 1 tab PO DAILY [facility] Last Admin: 04/19/17 09:36 Dose: 1 tab Nystatin (Mycostatin Cream -) 1 applic TP BID [facility] Last Admin: 04/19/17 09:43 Dose: 1 applic Olanzapine 2.5 mg/ Olanzapine (5 mg) 7.5 mg PO DAILY [facility] Last Admin: 04/19/17 09:42 Dose: 7.5 mg Ondansetron HCl (Zofran Injection) 4 mg IVPB Q6H PRN PRN Reason: NAUSEA Perphenazine (Trilafon) 0.5 mg PO DAILY [facility] Last Admin: 04/19/17 10:00 Dose: 0.5 mg Polyethylene Glycol (Miralax (For Daily Use) -) 17 gm PO BID [facility] Last Admin: 04/19/17 09:43 Dose: Not Given Ranitidine HCl (Zantac -) 150 mg PO BID [facility] Last Admin: 04/19/17 09:37 Dose: 150 mg Tamsulosin HCl (Flomax -) 0.4 mg PO DAILY@0830 [facility] Last Admin: 04/19/17 09:36 Dose: 0.4 mg Vitamin A/Vitamin D (Vitamin A & D Top Oint -) 1 applic TP BID [facility] Last Admin: 04/19/17 09:41 Dose: 1 applic A/P 86 year old Gentleman with PMhx of CKD (baseline 2.1-2.6), CHF, Anemia, GIB, Hyperlipidemia s/p recent admission for acute on chronic anemia [facility] #Hematuria s/p Cysto that showed large clots in the bladder and bleeding prostate s/p TURP improving today further management as per Urology #SUZI on CKD Renal function stable off IVF and diuretics monitor edema, restart lasix if edema worsens #Hypertension Continue amlodipine no DIPTI/ARB at this time #Anemia trend H/H with hematuria #Hypernatremia improved oral water intake as tolerated #Cellulitis continue Abx as per ID Teja Mercedes DO
[2017-04-20] MEDS ORDERED: PIPERACILLIN/TAZOBACTAM 2.25 GM VIAL IVPB ONE ×3 (01:14→17:48)
[2017-04-20] MEDS ORDERED: DEXTROSE 5%-WATER - 50 ML IVPB ONE ×3 (01:14→17:48)
[2017-04-20] MEDS: PIPERACILLIN/TAZOB 2.25 GM 2.25 GM in DEXTROSE 5%-WATER - 50 ML IVPB SCH ×3 (01:30→18:47)
[2017-04-20 07:59] LABS: BASOPHIL 0.5 % (0-2.0); EOSINOPHIL 1.9 % (0-4.5); MCH 31.1 pg (25.7-33.7); MCHC 33.4 g/dl (32.0-35.9); MEAN CELL VOLUME 93.1 fl (80-96); MEAN PLT VOLUME 8.4 fl (7.5-11.1); NEUTROPHILS 87.5 % (42.8-82.8); PLATELET COUNT 347 K/MM3 (134-434); WHITE BLOOD COUNT 11.2 K/mm3 (4.0-10.0)
[2017-04-20 08:22] LABS: ANION GAP 12 (8-16); CALCIUM 9.5 mg/dL (8.5-10.1); CO2 23 mmol/L (21-32); CREATININE 2.4 mg/dL (0.7-1.3); GLUCOSE,RANDOM 92 mg/dL (74-106); MAGNESIUM 1.8 mg/dL (1.8-2.4); PHOSPHOROUS 3.3 mg/dL (2.5-4.9)
[2017-04-20] MEDS ORDERED: PT OWN MED DRAWER 7, Y5N ONE (09:19)
[2017-04-20] MEDS: MULTIVITAMINS (DAILY MVI) TABLET (FP) PO SCH (09:21)
[2017-04-20] MEDS: TAMSULOSIN HCL 0.4 MG CAP.ER.24H (FP) PO SCH (09:21)
[2017-04-20] MEDS: FERROUS SO4 325 MG TABLET (FP) PO SCH ×2 (09:21→21:25)
[2017-04-20] MEDS: ESCITALOPRAM OXALATE 20 MG TABLET (FP) PO SCH (09:21)
[2017-04-20] MEDS: RANITIDINE HCL 150 MG TABLET (FP) PO SCH ×2 (09:22→21:25)
[2017-04-20] MEDS: DOCUSATE SODIUM 100 MG CAPSULE (FP) PO SCH ×2 (09:22→21:25)
[2017-04-20] MEDS: amLODIPine BESYLATE 10 MG TABLET (FP) PO SCH (09:22)
[2017-04-20] MEDS: METOPROLOL SUCCINATE 25 MG TAB.SR.24H (FP) PO SCH (09:22)
[2017-04-20] MEDS: ASCORBIC ACID 500 MG TABLET (FP) PO SCH ×2 (09:22→21:25)
[2017-04-20] MEDS: OLANZAPINE 2.5 MG, OLANZAPINE 5 MG PO SCH (09:23)
[2017-04-20] MEDS: PERPHENAZINE 2 MG TABLET PO SCH (09:24)
[2017-04-20] MEDS: POLYETHYLENE GLYCOL 3350 119 GM BTL PO SCH ×2 (09:27→21:26)
[2017-04-20] MEDS: NYSTATIN 100,000 UNIT/GM TOPICAL CREAM 15 GM TUBE TP SCH ×2 (09:28→21:27)
[2017-04-20] MEDS: VITAMINS A AND D TOPICAL OINTMENT 60 GM TUBE TP SCH ×2 (09:28→21:26)
--- NOTE | 2017-04-20 12:41 | PN ---
Progress Note, Physician History of Present Illness: swelling improving no new issues patient calm - Current Medication List Current Medications: Active Medications Acetaminophen (Tylenol -) 650 mg PO Q4H PRN PRN Reason: FEVER OR PAIN Last Admin: 04/18/17 21:01 Dose: 650 mg Albuterol Sulfate (Ventolin 0.083% Nebulizer Soln -) 1 amp NEB Q6H PRN PRN Reason: SHORT OF BREATH/WHEEZING Amlodipine Besylate (Norvasc -) 10 mg PO DAILY [facility] Last Admin: 04/20/17 09:22 Dose: 10 mg Ascorbic Acid (Vitamin C -) 500 mg PO BID [facility] Last Admin: 04/20/17 09:22 Dose: 500 mg Docusate Sodium (Colace -) 100 mg PO BID [facility] Last Admin: 04/20/17 09:22 Dose: 100 mg Escitalopram Oxalate (Lexapro -) 20 mg PO DAILY [facility] Last Admin: 04/20/17 09:21 Dose: 20 mg Ferrous Sulfate (Feosol -) 325 mg PO BID [facility] Last Admin: 04/20/17 09:21 Dose: 325 mg Hydromorphone HCl (Dilaudid Injection -) 2 mg IM Q4H PRN PRN Reason: PAIN Piperacillin Sod/Tazobactam (Sod 2.25 gm/ Dextrose) 50 mls @ 100 mls/hr IVPB Q8H-IV CINTHYA PRN Reason: Protocol Last Admin: 04/20/17 09:26 Dose: 100 mls/hr Lorazepam (Ativan Injection -) 0.5 mg IVPUSH Q6H PRN PRN Reason: AGITATION Last Admin: 04/17/17 23:57 Dose: 0.5 mg Metoprolol Succinate (Toprol Xl -) 25 mg PO DAILY [facility] Last Admin: 04/20/17 09:22 Dose: 25 mg Multivitamins/Minerals/Vitamin C (Tab-A-Vit -) 1 tab PO DAILY [facility] Last Admin: 04/20/17 09:21 Dose: 1 tab Nystatin (Mycostatin Cream -) 1 applic TP BID [facility] Last Admin: 04/20/17 09:28 Dose: 1 applic Olanzapine 2.5 mg/ Olanzapine (5 mg) 7.5 mg PO DAILY [facility] Last Admin: 04/20/17 09:23 Dose: 7.5 mg Ondansetron HCl (Zofran Injection) 4 mg IVPB Q6H PRN PRN Reason: NAUSEA Perphenazine (Trilafon) 0.5 mg PO DAILY [facility] Last Admin: 04/20/17 09:24 Dose: 0.5 mg Polyethylene Glycol (Miralax (For Daily Use) -) 17 gm PO BID [facility] Last Admin: 04/20/17 09:27 Dose: 17 gm Ranitidine HCl (Zantac -) 150 mg PO BID [facility] Last Admin: 04/20/17 09:22 Dose: 150 mg Tamsulosin HCl (Flomax -) 0.4 mg PO DAILY@829 [facility] Last Admin: 04/20/17 09:21 Dose: 0.4 mg Vitamin A/Vitamin D (Vitamin A & D Top Oint -) 1 applic TP BID [facility] Last Admin: 04/20/17 09:28 Dose: 1 applic - Objective Vital Signs: Vital Signs Temperature 97 F L 04/20/17 08:00 Pulse Rate 70 04/20/17 08:00 Respiratory Rate 20 04/20/17 08:00 Blood Pressure 157/58 04/20/17 08:00 O2 Sat by Pulse Oximetry (%) 98 04/19/17 21:00 Constitutional: Yes: No Distress, Calm Cardiovascular: Yes: Regular Rate and Rhythm Respiratory: Yes: Regular, CTA Bilaterally Gastrointestinal: Yes: Normal Bowel Sounds, Soft Musculoskeletal: Yes: WNL Extremities: Yes: Other Neurological: Yes: Alert, Other Psychiatric: Yes: Alert Labs: CBC, BMP 04/20/17 06:00 04/20/17 06:00 Assessment/Plan uti hematuria cough cellulitis of the rt leg arf plan continue current mgmt continue abx elevation of the legs rest as planned patient improving hopefully by sunday we will be able to deescalate the abx
--- NOTE | 2017-04-20 17:42 | PN ---
Progress Note, Physician Chief Complaint: Mr Reynoso is without complaint. No cp, sob, n/v - Current Medication List Current Medications: Active Medications Acetaminophen (Tylenol -) 650 mg PO Q4H PRN PRN Reason: FEVER OR PAIN Last Admin: 04/18/17 21:01 Dose: 650 mg Albuterol Sulfate (Ventolin 0.083% Nebulizer Soln -) 1 amp NEB Q6H PRN PRN Reason: SHORT OF BREATH/WHEEZING Amlodipine Besylate (Norvasc -) 10 mg PO DAILY [facility] Last Admin: 04/20/17 09:22 Dose: 10 mg Ascorbic Acid (Vitamin C -) 500 mg PO BID [facility] Last Admin: 04/20/17 09:22 Dose: 500 mg Docusate Sodium (Colace -) 100 mg PO BID [facility] Last Admin: 04/20/17 09:22 Dose: 100 mg Escitalopram Oxalate (Lexapro -) 20 mg PO DAILY [facility] Last Admin: 04/20/17 09:21 Dose: 20 mg Ferrous Sulfate (Feosol -) 325 mg PO BID [facility] Last Admin: 04/20/17 09:21 Dose: 325 mg Hydromorphone HCl (Dilaudid Injection -) 2 mg IM Q4H PRN PRN Reason: PAIN Piperacillin Sod/Tazobactam (Sod 2.25 gm/ Dextrose) 50 mls @ 100 mls/hr IVPB Q8H-IV CINTHYA PRN Reason: Protocol Last Admin: 04/20/17 09:26 Dose: 100 mls/hr Lorazepam (Ativan Injection -) 0.5 mg IVPUSH Q6H PRN PRN Reason: AGITATION Last Admin: 04/17/17 23:57 Dose: 0.5 mg Metoprolol Succinate (Toprol Xl -) 25 mg PO DAILY [facility] Last Admin: 04/20/17 09:22 Dose: 25 mg Multivitamins/Minerals/Vitamin C (Tab-A-Vit -) 1 tab PO DAILY [facility] Last Admin: 04/20/17 09:21 Dose: 1 tab Nystatin (Mycostatin Cream -) 1 applic TP BID [facility] Last Admin: 04/20/17 09:28 Dose: 1 applic Olanzapine 2.5 mg/ Olanzapine (5 mg) 7.5 mg PO DAILY [facility] Last Admin: 04/20/17 09:23 Dose: 7.5 mg Ondansetron HCl (Zofran Injection) 4 mg IVPB Q6H PRN PRN Reason: NAUSEA Perphenazine (Trilafon) 0.5 mg PO DAILY [facility] Last Admin: 04/20/17 09:24 Dose: 0.5 mg Polyethylene Glycol (Miralax (For Daily Use) -) 17 gm PO BID [facility] Last Admin: 04/20/17 09:27 Dose: 17 gm Ranitidine HCl (Zantac -) 150 mg PO BID [facility] Last Admin: 04/20/17 09:22 Dose: 150 mg Tamsulosin HCl (Flomax -) 0.4 mg PO DAILY@0830 [facility] Last Admin: 04/20/17 09:21 Dose: 0.4 mg Vitamin A/Vitamin D (Vitamin A & D Top Oint -) 1 applic TP BID [facility] Last Admin: 04/20/17 09:28 Dose: 1 applic - Objective Vital Signs: Vital Signs Temperature 36.3 C L 04/20/17 15:11 Pulse Rate 74 04/20/17 15:11 Respiratory Rate 20 04/20/17 15:11 Blood Pressure 157/58 04/20/17 08:00 O2 Sat by Pulse Oximetry (%) 98 04/20/17 09:00 Constitutional: Yes: Well Nourished, No Distress, Calm Cardiovascular: Yes: Regular Rate and Rhythm. No: Gallop, Murmur, Rub Respiratory: Yes: Regular, CTA Bilaterally. No: Rales, Rhonchi, Wheezes Gastrointestinal: Yes: Normal Bowel Sounds, Soft. No: Distention, Tenderness Extremities: Yes: Erythema Edema: No Labs: CBC, BMP 04/20/17 06:00 04/20/17 06:00 Assessment/Plan 1. Cellulitis -continue zosyn per ID -cellulitis improving -case d/w Dr Wylie 2. UTI -ID following -now on zosyn as above 3. Hematuria -urology following -urine clearing -urology to decide cystoscopy vs harris removal 4. Metabolic encephalopathy -at baseline 5. DAVID on CKD -at baseline -nephrology following 6. Dementia -continue home regimen 7. BPH -continue flomax -harris in place -urology following 8. Anemia -improving Dispo -continue antibiotics over the weekend -await urology recommendation concerning harris
[2017-04-20] MEDS: LORazepam 2 MG/ML SDV VIAL IVPUSH PRN (21:52)
[2017-04-21] MEDS ORDERED: PIPERACILLIN/TAZOBACTAM 2.25 GM VIAL IVPB ONE ×3 (01:20→17:05)
[2017-04-21] MEDS ORDERED: DEXTROSE 5%-WATER - 50 ML IVPB ONE ×3 (01:20→17:05)
[2017-04-21] MEDS: PIPERACILLIN/TAZOB 2.25 GM 2.25 GM in DEXTROSE 5%-WATER - 50 ML IVPB SCH ×3 (01:57→17:56)
[2017-04-21 07:41] LABS: BASOPHIL 0.5 % (0-2.0); EOSINOPHIL 4.2 % (0-4.5); MCH 31.1 pg (25.7-33.7); MCHC 33.6 g/dl (32.0-35.9); MEAN CELL VOLUME 92.3 fl (80-96); NEUTROPHILS 74.8 % (42.8-82.8); PLATELET COUNT 298 K/MM3 (134-434); RDW 14.9 % (11.9-15.9); WHITE BLOOD COUNT 7.9 K/mm3 (4.0-10.0)
[2017-04-21 08:25] LABS: ANION GAP 10 (8-16); CO2 23 mmol/L (21-32); CREATININE 2.3 mg/dL (0.7-1.3); GLUCOSE,RANDOM 78 mg/dL (74-106); MAGNESIUM 1.8 mg/dL (1.8-2.4); PHOSPHOROUS 3.5 mg/dL (2.5-4.9)
--- NOTE | 2017-04-21 08:56 | PN ---
Progress Note (short form) - Note Progress Note: Patient seen and examined. Chart reviewed. Currently sitting up in bed, eating breakfast, slowly feeding himself, responsive and appropriate. Denies new chest discomfort or bladder discomfort. Labs, radiologic testing and progress notes/consultations reviewed. Selected Entries 04/20/17 04/21/17 20:42 06:36 Temperature 97.5 F L Pulse Rate 81 Respiratory 20 Rate Blood Pressure 136/90 O2 Sat by Pulse 98 Oximetry (%) Oxygen Delivery Room Air Method Laboratory Tests 04/17/17 04/21/17 04/21/17 06:00 06:00 06:00 WBC 7.9 Hgb 8.7 L Hct 25.9 L Plt Count 298 Sodium 144 Potassium 4.4 Chloride 111 H Carbon Dioxide 23 BUN 35 H Creatinine 2.3 H Random Glucose 78 Calcium 9.0 Phosphorus 3.5 Magnesium 1.8 Albumin 2.4 L Chest Lungs clear with no evidence of upper airway congestion or expiratory wheeze Cor RRR Abd Soft Mildly distended Non-tender No mass F/C in place with no gross hematuria presently Ext Mild swelling with minimal erythema RLE 1-2+ edema LLE Neuro No new focal deficit Assessment and Plan Cellulitis On Rx as per ID Improved UTI Strep species On Rx H/O Upper airway congestion Improved from my previous examinations Anemia 7.5/22.5>>7.9/23.7>>8.7/25.9 Multifactorial Blood loss and likely chronic disease related to CRI CRI Acute on chronic BUN/Cr 62/2.7>>56/2.8>>>35/2.3 Hypoalbuminemia 3.0>>2.4 Likely related to both acute/chronic disease as well as nutritional factors Metabolic encephalopathy Possible underlying Dementia according to notes Observe BPH F/C in place HPL Stable HTN Stable Continue current Rx
[2017-04-21] MEDS: METOPROLOL SUCCINATE 25 MG TAB.SR.24H (FP) PO SCH (09:05)
[2017-04-21] MEDS: amLODIPine BESYLATE 10 MG TABLET (FP) PO SCH (09:05)
[2017-04-21] MEDS: DOCUSATE SODIUM 100 MG CAPSULE (FP) PO SCH ×2 (09:05→22:01)
[2017-04-21] MEDS: ASCORBIC ACID 500 MG TABLET (FP) PO SCH ×2 (09:05→22:02)
[2017-04-21] MEDS: FERROUS SO4 325 MG TABLET (FP) PO SCH ×2 (09:05→22:01)
[2017-04-21] MEDS: RANITIDINE HCL 150 MG TABLET (FP) PO SCH ×2 (09:05→22:02)
[2017-04-21] MEDS: TAMSULOSIN HCL 0.4 MG CAP.ER.24H (FP) PO SCH (09:06)
[2017-04-21] MEDS: POLYETHYLENE GLYCOL 3350 119 GM BTL PO SCH ×3 (09:07→22:02)
[2017-04-21] MEDS: NYSTATIN 100,000 UNIT/GM TOPICAL CREAM 15 GM TUBE TP SCH ×2 (09:08→22:02)
[2017-04-21] MEDS: VITAMINS A AND D TOPICAL OINTMENT 60 GM TUBE TP SCH ×2 (09:08→22:02)
[2017-04-21] MEDS ORDERED: PT OWN MED DRAWER 7, Y5N ONE ×2 (09:10→11:17)
[2017-04-21] MEDS: MULTIVITAMINS (DAILY MVI) TABLET (FP) PO SCH (09:15)
[2017-04-21] MEDS: ESCITALOPRAM OXALATE 20 MG TABLET (FP) PO SCH (09:15)
[2017-04-21] MEDS: OLANZAPINE 2.5 MG, OLANZAPINE 5 MG PO SCH (10:27)
[2017-04-21] MEDS: PERPHENAZINE 2 MG TABLET PO SCH (10:27)
--- NOTE | 2017-04-21 10:41 | PN ---
Progress Note (short form) - Note Progress Note: Renal Follow up for SUZI/CKD pt seen and examined at the bedside awake and alert no acute complaints harris removed this am eating breakfast denies any sob, chest pain Vital Signs Temperature 97.5 F L 04/21/17 06:36 Pulse Rate 81 04/21/17 06:36 Respiratory Rate 20 04/21/17 06:36 Blood Pressure 136/90 04/21/17 06:36 O2 Sat by Pulse Oximetry (%) 98 04/20/17 20:42 Intake & Output 04/18/17 04/19/17 04/20/17 04/21/17 23:59 23:59 23:59 23:59 Intake Total 170 690 750 Output Total 1100 1000 1350 400 Balance -930 -310 -600 -400 Gen: NAD, awake and alert CVS: RRR, No M/R Lungs: CTA Abd: soft NT/ND Ext: Trace to 1+ edema in LE Gu: CBI, harris in place CBC, BMP 04/21/17 06:00 04/21/17 06:00 Current Medications Acetaminophen (Tylenol -) 650 mg PO Q4H PRN PRN Reason: FEVER OR PAIN Last Admin: 04/18/17 21:01 Dose: 650 mg Albuterol Sulfate (Ventolin 0.083% Nebulizer Soln -) 1 amp NEB Q6H PRN PRN Reason: SHORT OF BREATH/WHEEZING Amlodipine Besylate (Norvasc -) 10 mg PO DAILY [facility] Last Admin: 04/21/17 09:05 Dose: 10 mg Ascorbic Acid (Vitamin C -) 500 mg PO BID [facility] Last Admin: 04/21/17 09:05 Dose: 500 mg Docusate Sodium (Colace -) 100 mg PO BID [facility] Last Admin: 04/21/17 09:05 Dose: 100 mg Escitalopram Oxalate (Lexapro -) 20 mg PO DAILY [facility] Last Admin: 04/21/17 09:15 Dose: 20 mg Ferrous Sulfate (Feosol -) 325 mg PO BID [facility] Last Admin: 04/21/17 09:05 Dose: 325 mg Hydromorphone HCl (Dilaudid Injection -) 2 mg IM Q4H PRN PRN Reason: PAIN Piperacillin Sod/Tazobactam (Sod 2.25 gm/ Dextrose) 50 mls @ 100 mls/hr IVPB Q8H-IV CINTHYA PRN Reason: Protocol Last Admin: 04/21/17 09:05 Dose: 100 mls/hr Lorazepam (Ativan Injection -) 0.5 mg IVPUSH Q6H PRN PRN Reason: AGITATION Last Admin: 04/20/17 21:52 Dose: 0.5 mg Metoprolol Succinate (Toprol Xl -) 25 mg PO DAILY [facility] Last Admin: 04/21/17 09:05 Dose: 25 mg Multivitamins/Minerals/Vitamin C (Tab-A-Vit -) 1 tab PO DAILY [facility] Last Admin: 04/21/17 09:15 Dose: 1 tab Nystatin (Mycostatin Cream -) 1 applic TP BID [facility] Last Admin: 04/21/17 09:08 Dose: 1 applic Olanzapine 2.5 mg/ Olanzapine (5 mg) 7.5 mg PO DAILY [facility] Last Admin: 04/21/17 10:27 Dose: 7.5 mg Ondansetron HCl (Zofran Injection) 4 mg IVPB Q6H PRN PRN Reason: NAUSEA Perphenazine (Trilafon) 0.5 mg PO DAILY [facility] Last Admin: 04/21/17 10:27 Dose: 0.5 mg Polyethylene Glycol (Miralax (For Daily Use) -) 17 gm PO BID [facility] Last Admin: 04/21/17 09:07 Dose: 17 gm Ranitidine HCl (Zantac -) 150 mg PO BID [facility] Last Admin: 04/21/17 09:05 Dose: 150 mg Tamsulosin HCl (Flomax -) 0.4 mg PO DAILY@0830 [facility] Last Admin: 04/21/17 09:06 Dose: 0.4 mg Vitamin A/Vitamin D (Vitamin A & D Top Oint -) 1 applic TP BID [facility] Last Admin: 04/21/17 09:08 Dose: 1 applic A/P 86 year old Gentleman with PMhx of CKD (baseline 2.1-2.6), CHF, Anemia, GIB, Hyperlipidemia s/p recent admission for acute on chronic anemia who was read[place] with gross hematuria #Hematuria s/p Cysto that showed large clots in the bladder and bleeding prostate s/p TURP harris discontinued Hgb stable #SUZI on CKD Renal function remains stable Trial of void today Trend BUN/Cr dose all meds for Cr Cl less then 30 #Hypertension Continue amlodipine no DIPTI/ARB at this time given low eGFR #Anemia trend H/H with hematuria #Cellulitis continue Abx as per WADE Mercedes DO
--- NOTE | 2017-04-21 12:24 | PN ---
Progress Note, Physician History of Present Illness: calm no new issues - Current Medication List Current Medications: Active Medications Acetaminophen (Tylenol -) 650 mg PO Q4H PRN PRN Reason: FEVER OR PAIN Last Admin: 04/18/17 21:01 Dose: 650 mg Albuterol Sulfate (Ventolin 0.083% Nebulizer Soln -) 1 amp NEB Q6H PRN PRN Reason: SHORT OF BREATH/WHEEZING Amlodipine Besylate (Norvasc -) 10 mg PO DAILY [facility] Last Admin: 04/21/17 09:05 Dose: 10 mg Ascorbic Acid (Vitamin C -) 500 mg PO BID [facility] Last Admin: 04/21/17 09:05 Dose: 500 mg Docusate Sodium (Colace -) 100 mg PO BID [facility] Last Admin: 04/21/17 09:05 Dose: 100 mg Escitalopram Oxalate (Lexapro -) 20 mg PO DAILY [facility] Last Admin: 04/21/17 09:15 Dose: 20 mg Ferrous Sulfate (Feosol -) 325 mg PO BID [facility] Last Admin: 04/21/17 09:05 Dose: 325 mg Hydromorphone HCl (Dilaudid Injection -) 2 mg IM Q4H PRN PRN Reason: PAIN Piperacillin Sod/Tazobactam (Sod 2.25 gm/ Dextrose) 50 mls @ 100 mls/hr IVPB Q8H-IV CINTHYA PRN Reason: Protocol Last Admin: 04/21/17 09:05 Dose: 100 mls/hr Lorazepam (Ativan Injection -) 0.5 mg IVPUSH Q6H PRN PRN Reason: AGITATION Last Admin: 04/20/17 21:52 Dose: 0.5 mg Metoprolol Succinate (Toprol Xl -) 25 mg PO DAILY [facility] Last Admin: 04/21/17 09:05 Dose: 25 mg Multivitamins/Minerals/Vitamin C (Tab-A-Vit -) 1 tab PO DAILY [facility] Last Admin: 04/21/17 09:15 Dose: 1 tab Nystatin (Mycostatin Cream -) 1 applic TP BID [facility] Last Admin: 04/21/17 09:08 Dose: 1 applic Olanzapine 2.5 mg/ Olanzapine (5 mg) 7.5 mg PO DAILY [facility] Last Admin: 04/21/17 10:27 Dose: 7.5 mg Ondansetron HCl (Zofran Injection) 4 mg IVPB Q6H PRN PRN Reason: NAUSEA Perphenazine (Trilafon) 0.5 mg PO DAILY [facility] Last Admin: 04/21/17 10:27 Dose: 0.5 mg Polyethylene Glycol (Miralax (For Daily Use) -) 17 gm PO BID [facility] Last Admin: 04/21/17 09:07 Dose: 17 gm Ranitidine HCl (Zantac -) 150 mg PO BID [facility] Last Admin: 04/21/17 09:05 Dose: 150 mg Tamsulosin HCl (Flomax -) 0.4 mg PO DAILY@0830 [facility] Last Admin: 04/21/17 09:06 Dose: 0.4 mg Vitamin A/Vitamin D (Vitamin A & D Top Oint -) 1 applic TP BID [facility] Last Admin: 04/21/17 09:08 Dose: 1 applic - Objective Vital Signs: Vital Signs Temperature 97.5 F L 04/21/17 06:36 Pulse Rate 81 04/21/17 06:36 Respiratory Rate 20 04/21/17 06:36 Blood Pressure 136/90 04/21/17 06:36 O2 Sat by Pulse Oximetry (%) 98 04/20/17 20:42 Constitutional: Yes: No Distress, Calm Cardiovascular: Yes: S1, S2 Respiratory: Yes: Regular, CTA Bilaterally Gastrointestinal: Yes: Normal Bowel Sounds, Soft Musculoskeletal: Yes: Other Extremities: Yes: Other (erythema decreasing) Neurological: Yes: Alert, Other Psychiatric: Yes: Alert, Other Labs: CBC, BMP 04/21/17 06:00 04/21/17 06:00 Assessment/Plan uti hematuria cough cellulitis of the rt leg arf plan by sunday we will deescalate rest as per primary
[2017-04-21] MEDS: LORazepam 2 MG/ML SDV VIAL IVPUSH PRN (22:02)
[2017-04-22] MEDS ORDERED: PIPERACILLIN/TAZOBACTAM 2.25 GM VIAL IVPB ONE ×4 (01:22→20:48)
[2017-04-22] MEDS ORDERED: DEXTROSE 5%-WATER - 50 ML IVPB ONE ×4 (01:22→20:49)
[2017-04-22] MEDS: PIPERACILLIN/TAZOB 2.25 GM 2.25 GM in DEXTROSE 5%-WATER - 50 ML IVPB SCH ×3 (01:33→18:43)
[2017-04-22 08:14] LABS: BASOPHIL 0.7 % (0-2.0); EOSINOPHIL 5.3 % (0-4.5); MCH 31.6 pg (25.7-33.7); MCHC 34.1 g/dl (32.0-35.9); MEAN CELL VOLUME 92.5 fl (80-96); MEAN PLT VOLUME 8.1 fl (7.5-11.1); NEUTROPHILS 75.9 % (42.8-82.8); PLATELET COUNT 282 K/MM3 (134-434); RDW 14.8 % (11.9-15.9); WHITE BLOOD COUNT 7.7 K/mm3 (4.0-10.0)
[2017-04-22 08:39] LABS: ALBUMIN 2.5 g/dl (3.4-5.0); ANION GAP 9 (8-16); CALCIUM 8.8 mg/dL (8.5-10.1); CO2 24 mmol/L (21-32); CREATININE 2.5 mg/dL (0.7-1.3); GLUCOSE,RANDOM 80 mg/dL (74-106); SGOT/AST 15 U/L (15-37); SGPT/ALT 29 U/L (12-78)
[2017-04-22 08:41] LABS: ALK PHOS 122 U/L (45-117); BILIRUBIN,TOTAL 0.3 mg/dL (0.2-1.0); TOT PROT 5.2 g/dl (6.4-8.2)
--- NOTE | 2017-04-22 08:59 | PN ---
Progress Note (short form) - Note Progress Note: Patient seen and examined. Chart reviewed. Currently sitting up in wheelchair by the nurses' station, eating breakfast, slowly feeding himself, responsive and appropriate. Denies new chest discomfort or bladder discomfort. Labs, radiologic testing and progress notes/consultations reviewed. Seay discontinued. Selected Entries 04/21/17 04/21/17 04/22/17 21:00 22:00 06:00 Temperature 98.1 F Respiratory 20 Rate Blood Pressure 146/62 184/83 O2 Sat by Pulse 98 Oximetry (%) Oxygen Delivery Room Air Method Laboratory Tests 04/22/17 04/22/17 06:45 06:45 WBC 7.7 Hgb 8.1 L Hct 23.6 L Plt Count 282 Sodium 144 Potassium 4.6 Chloride 111 H Carbon Dioxide 24 BUN 39 H Creatinine 2.5 H Random Glucose 80 Calcium 8.8 Total Bilirubin 0.3 AST 15 ALT 29 D Alkaline Phosphatase 122 H Total Protein 5.2 L Albumin 2.5 L Chest Lungs clear with no evidence of upper airway congestion or expiratory wheeze Cor RRR Abd Soft Mildly distended Non-tender No mass F/C removed Ext Mild swelling with persistent erythema RLE 1-2+ edema LLE Neuro No new focal deficit Assessment and Plan Cellulitis On Rx as per ID Improved overall UTI Strep species On Rx H/O Upper airway congestion Improved from my previous examinations Anemia 7.5/22.5>>7.9/23.7>>8.7/25.9>>8.1/23.6 Multifactorial Blood loss and likely chronic disease related to CRI CRI Acute on chronic BUN/Cr 62/2.7>>56/2.8>>>35/2.3>>39/2.5 Hypoalbuminemia 3.0>>2.4>>2.5 Likely related to both acute/chronic disease as well as nutritional factors Metabolic encephalopathy Possible underlying Dementia according to notes Observe BPH F/C removed HPL Stable HTN Elevated BP this AM 184/83 Previous readings stable Continue current Rx and observe BP, RLE cellulitis and bladder function
[2017-04-22] MEDS ORDERED: PT OWN MED DRAWER 7, Y5N ONE (09:50)
[2017-04-22] MEDS: POLYETHYLENE GLYCOL 3350 119 GM BTL PO SCH ×2 (09:57→21:01)
[2017-04-22] MEDS: PERPHENAZINE 2 MG TABLET PO SCH (09:58)
[2017-04-22] MEDS: RANITIDINE HCL 150 MG TABLET (FP) PO SCH ×2 (10:01→21:02)
[2017-04-22] MEDS: DOCUSATE SODIUM 100 MG CAPSULE (FP) PO SCH ×2 (10:01→21:01)
[2017-04-22] MEDS: METOPROLOL SUCCINATE 25 MG TAB.SR.24H (FP) PO SCH (10:01)
[2017-04-22] MEDS: FERROUS SO4 325 MG TABLET (FP) PO SCH ×2 (10:01→21:01)
[2017-04-22] MEDS: ASCORBIC ACID 500 MG TABLET (FP) PO SCH ×2 (10:01→21:02)
[2017-04-22] MEDS: MULTIVITAMINS (DAILY MVI) TABLET (FP) PO SCH (10:01)
[2017-04-22] MEDS: amLODIPine BESYLATE 10 MG TABLET (FP) PO SCH (10:01)
[2017-04-22] MEDS: ESCITALOPRAM OXALATE 20 MG TABLET (FP) PO SCH (10:02)
[2017-04-22] MEDS: TAMSULOSIN HCL 0.4 MG CAP.ER.24H (FP) PO SCH (10:02)
[2017-04-22] MEDS: OLANZAPINE 2.5 MG, OLANZAPINE 5 MG PO SCH (10:02)
[2017-04-22] MEDS: NYSTATIN 100,000 UNIT/GM TOPICAL CREAM 15 GM TUBE TP SCH ×2 (10:03→21:02)
[2017-04-22] MEDS: VITAMINS A AND D TOPICAL OINTMENT 60 GM TUBE TP SCH ×2 (10:03→21:02)
--- NOTE | 2017-04-22 14:03 | PN ---
Progress Note, Physician History of Present Illness: calm no new issues - Current Medication List Current Medications: Active Medications Acetaminophen (Tylenol -) 650 mg PO Q4H PRN PRN Reason: FEVER OR PAIN Last Admin: 04/18/17 21:01 Dose: 650 mg Albuterol Sulfate (Ventolin 0.083% Nebulizer Soln -) 1 amp NEB Q6H PRN PRN Reason: SHORT OF BREATH/WHEEZING Amlodipine Besylate (Norvasc -) 10 mg PO DAILY [facility] Last Admin: 04/22/17 10:01 Dose: 10 mg Ascorbic Acid (Vitamin C -) 500 mg PO BID [facility] Last Admin: 04/22/17 10:01 Dose: 500 mg Docusate Sodium (Colace -) 100 mg PO BID [facility] Last Admin: 04/22/17 10:01 Dose: 100 mg Escitalopram Oxalate (Lexapro -) 20 mg PO DAILY [facility] Last Admin: 04/22/17 10:02 Dose: 20 mg Ferrous Sulfate (Feosol -) 325 mg PO BID [facility] Last Admin: 04/22/17 10:01 Dose: 325 mg Hydromorphone HCl (Dilaudid Injection -) 2 mg IM Q4H PRN PRN Reason: PAIN Piperacillin Sod/Tazobactam (Sod 2.25 gm/ Dextrose) 50 mls @ 100 mls/hr IVPB Q8H-IV CINTHYA PRN Reason: Protocol Last Admin: 04/22/17 10:02 Dose: 100 mls/hr Lorazepam (Ativan Injection -) 0.5 mg IVPUSH Q6H PRN PRN Reason: AGITATION Last Admin: 04/21/17 22:02 Dose: 0.5 mg Metoprolol Succinate (Toprol Xl -) 25 mg PO DAILY [facility] Last Admin: 04/22/17 10:01 Dose: 25 mg Multivitamins/Minerals/Vitamin C (Tab-A-Vit -) 1 tab PO DAILY [facility] Last Admin: 04/22/17 10:01 Dose: 1 tab Nystatin (Mycostatin Cream -) 1 applic TP BID [facility] Last Admin: 04/22/17 10:03 Dose: 1 applic Olanzapine 2.5 mg/ Olanzapine (5 mg) 7.5 mg PO DAILY [facility] Last Admin: 04/22/17 10:02 Dose: 7.5 mg Ondansetron HCl (Zofran Injection) 4 mg IVPB Q6H PRN PRN Reason: NAUSEA Perphenazine (Trilafon) 0.5 mg PO DAILY [facility] Last Admin: 04/22/17 09:58 Dose: 0.5 mg Polyethylene Glycol (Miralax (For Daily Use) -) 17 gm PO BID [facility] Last Admin: 04/22/17 09:57 Dose: 17 gm Ranitidine HCl (Zantac -) 150 mg PO BID [facility] Last Admin: 04/22/17 10:01 Dose: 150 mg Tamsulosin HCl (Flomax -) 0.4 mg PO DAILY@0830 [facility] Last Admin: 04/22/17 10:02 Dose: 0.4 mg Vitamin A/Vitamin D (Vitamin A & D Top Oint -) 1 applic TP BID [facility] Last Admin: 04/22/17 10:03 Dose: 1 applic - Objective Vital Signs: Vital Signs Temperature 97.8 F 04/22/17 10:00 Pulse Rate 63 04/22/17 10:00 Respiratory Rate 18 04/22/17 10:00 Blood Pressure 149/53 04/22/17 10:00 O2 Sat by Pulse Oximetry (%) 98 04/21/17 21:00 Constitutional: Yes: No Distress Cardiovascular: Yes: Regular Rate and Rhythm Respiratory: Yes: Regular, CTA Bilaterally Gastrointestinal: Yes: Normal Bowel Sounds, Soft Extremities: Yes: Other (improving erythema) Integumentary: Yes: Erythema (improving) Neurological: Yes: Alert Labs: CBC, BMP 04/22/17 06:45 04/22/17 06:45 Assessment/Plan uti hematuria cough cellulitis of the rt leg arf plan will try to deescalate tomorrow and see how patient does
[2017-04-22] MEDS: LORazepam 2 MG/ML SDV VIAL IVPUSH PRN (18:43)
[2017-04-23] MEDS: PIPERACILLIN/TAZOB 2.25 GM 2.25 GM in DEXTROSE 5%-WATER - 50 ML IVPB SCH ×2 (01:18→11:21)
[2017-04-23 08:05] LABS: BASOPHIL 0.6 % (0-2.0); EOSINOPHIL 5.1 % (0-4.5); MCH 31.5 pg (25.7-33.7); MCHC 33.6 g/dl (32.0-35.9); MEAN CELL VOLUME 93.7 fl (80-96); MEAN PLT VOLUME 7.9 fl (7.5-11.1); PLATELET COUNT 259 K/MM3 (134-434); RDW 14.9 % (11.9-15.9); WHITE BLOOD COUNT 7.3 K/mm3 (4.0-10.0)
[2017-04-23] MEDS: TAMSULOSIN HCL 0.4 MG CAP.ER.24H (FP) PO SCH (08:21)
[2017-04-23 08:28] LABS: ALBUMIN 2.4 g/dl (3.4-5.0); ALK PHOS 119 U/L (45-117); ANION GAP 10 (8-16); BILIRUBIN,TOTAL 0.3 mg/dL (0.2-1.0); CALCIUM 8.7 mg/dL (8.5-10.1); CO2 24 mmol/L (21-32); CREATININE 2.6 mg/dL (0.7-1.3); GLUCOSE,RANDOM 78 mg/dL (74-106); SGOT/AST 13 U/L (15-37); SGPT/ALT 27 U/L (12-78); TOT PROT 4.9 g/dl (6.4-8.2)
[2017-04-23] MEDS ORDERED: PIPERACILLIN/TAZOBACTAM 2.25 GM VIAL IVPB ONE (11:14)
[2017-04-23] MEDS ORDERED: DEXTROSE 5%-WATER - 50 ML IVPB ONE (11:14)
[2017-04-23] MEDS ORDERED: PT OWN MED DRAWER 7, Y5N ONE ×3 (11:14→19:26)
[2017-04-23] MEDS: FERROUS SO4 325 MG TABLET (FP) PO SCH ×2 (11:22→21:02)
[2017-04-23] MEDS: DOCUSATE SODIUM 100 MG CAPSULE (FP) PO SCH ×2 (11:22→21:02)
[2017-04-23] MEDS: ESCITALOPRAM OXALATE 20 MG TABLET (FP) PO SCH (11:23)
[2017-04-23] MEDS: MULTIVITAMINS (DAILY MVI) TABLET (FP) PO SCH (11:23)
[2017-04-23] MEDS: POLYETHYLENE GLYCOL 3350 119 GM BTL PO SCH ×2 (11:24→21:04)
[2017-04-23] MEDS: VITAMINS A AND D TOPICAL OINTMENT 60 GM TUBE TP SCH ×2 (11:24→21:05)
[2017-04-23] MEDS: METOPROLOL SUCCINATE 25 MG TAB.SR.24H (FP) PO SCH (11:24)
[2017-04-23] MEDS: PERPHENAZINE 2 MG TABLET PO SCH (11:25)
[2017-04-23] MEDS: RANITIDINE HCL 150 MG TABLET (FP) PO SCH ×2 (11:26→21:03)
[2017-04-23] MEDS: ASCORBIC ACID 500 MG TABLET (FP) PO SCH ×2 (11:26→21:03)
[2017-04-23] MEDS: OLANZAPINE 2.5 MG, OLANZAPINE 5 MG PO SCH (11:27)
[2017-04-23] MEDS: amLODIPine BESYLATE 10 MG TABLET (FP) PO SCH (12:39)
--- NOTE | 2017-04-23 12:53 | PN ---
Progress Note, Physician History of Present Illness: stable no issues calm - Current Medication List Current Medications: Active Medications Acetaminophen (Tylenol -) 650 mg PO Q4H PRN PRN Reason: FEVER OR PAIN Last Admin: 04/18/17 21:01 Dose: 650 mg Albuterol Sulfate (Ventolin 0.083% Nebulizer Soln -) 1 amp NEB Q6H PRN PRN Reason: SHORT OF BREATH/WHEEZING Amlodipine Besylate (Norvasc -) 10 mg PO DAILY [facility] Last Admin: 04/23/17 12:39 Dose: 10 mg Ascorbic Acid (Vitamin C -) 500 mg PO BID [facility] Last Admin: 04/23/17 11:26 Dose: 500 mg Docusate Sodium (Colace -) 100 mg PO BID [facility] Last Admin: 04/23/17 11:22 Dose: Not Given Escitalopram Oxalate (Lexapro -) 20 mg PO DAILY [facility] Last Admin: 04/23/17 11:23 Dose: 20 mg Ferrous Sulfate (Feosol -) 325 mg PO BID [facility] Last Admin: 04/23/17 11:22 Dose: 325 mg Hydromorphone HCl (Dilaudid Injection -) 2 mg IM Q4H PRN PRN Reason: PAIN Piperacillin Sod/Tazobactam (Sod 2.25 gm/ Dextrose) 50 mls @ 100 mls/hr IVPB Q8H-IV CINTHYA PRN Reason: Protocol Last Admin: 04/23/17 11:21 Dose: 100 mls/hr Lorazepam (Ativan Injection -) 0.5 mg IVPUSH Q6H PRN PRN Reason: AGITATION Last Admin: 04/22/17 18:43 Dose: 0.5 mg Metoprolol Succinate (Toprol Xl -) 25 mg PO DAILY [facility] Last Admin: 04/23/17 11:24 Dose: 25 mg Multivitamins/Minerals/Vitamin C (Tab-A-Vit -) 1 tab PO DAILY [facility] Last Admin: 04/23/17 11:23 Dose: 1 tab Nystatin (Mycostatin Cream -) 1 applic TP BID [facility] Last Admin: 04/22/17 21:02 Dose: 1 applic Olanzapine 2.5 mg/ Olanzapine (5 mg) 7.5 mg PO DAILY [facility] Last Admin: 04/23/17 11:27 Dose: 7.5 mg Ondansetron HCl (Zofran Injection) 4 mg IVPB Q6H PRN PRN Reason: NAUSEA Perphenazine (Trilafon) 0.5 mg PO DAILY [facility] Last Admin: 04/23/17 11:25 Dose: 0.5 mg Polyethylene Glycol (Miralax (For Daily Use) -) 17 gm PO BID [facility] Last Admin: 04/23/17 11:24 Dose: Not Given Ranitidine HCl (Zantac -) 150 mg PO BID [facility] Last Admin: 04/23/17 11:26 Dose: 150 mg Tamsulosin HCl (Flomax -) 0.4 mg PO DAILY@0830 [facility] Last Admin: 04/23/17 08:21 Dose: 0.4 mg Vitamin A/Vitamin D (Vitamin A & D Top Oint -) 1 applic TP BID [facility] Last Admin: 04/23/17 11:24 Dose: 1 applic - Objective Vital Signs: Vital Signs Temperature 98.0 F 04/23/17 10:00 Pulse Rate 57 L 04/23/17 10:00 Respiratory Rate 20 04/23/17 10:00 Blood Pressure 125/69 04/23/17 10:00 O2 Sat by Pulse Oximetry (%) 98 04/22/17 09:00 Constitutional: Yes: No Distress, Calm Cardiovascular: Yes: Regular Rate and Rhythm Respiratory: Yes: Regular, CTA Bilaterally Gastrointestinal: Yes: Normal Bowel Sounds, Soft Musculoskeletal: Yes: Other Extremities: Yes: Other Neurological: Yes: Alert, Other Psychiatric: Yes: Other Labs: CBC, BMP 04/23/17 07:15 04/23/17 07:15 Assessment/Plan uti hematuria cough cellulitis of the rt leg arf patient now has stasis cellulittis ahs resolved plan can try some hydrocortisone cream will stop all abx and monitor rest ct current mgmt rest as per primary
[2017-04-23] MEDS: NYSTATIN 100,000 UNIT/GM TOPICAL CREAM 15 GM TUBE TP SCH ×2 (14:40→21:04)
--- NOTE | 2017-04-23 15:02 | PN ---
Progress Note, Physician Chief Complaint: Mr Reynoso says he wants to go back to his room. He denies cp, sob, n/v. - Current Medication List Current Medications: Active Medications Acetaminophen (Tylenol -) 650 mg PO Q4H PRN PRN Reason: FEVER OR PAIN Last Admin: 04/18/17 21:01 Dose: 650 mg Albuterol Sulfate (Ventolin 0.083% Nebulizer Soln -) 1 amp NEB Q6H PRN PRN Reason: SHORT OF BREATH/WHEEZING Amlodipine Besylate (Norvasc -) 10 mg PO DAILY [facility] Last Admin: 04/23/17 12:39 Dose: 10 mg Ascorbic Acid (Vitamin C -) 500 mg PO BID [facility] Last Admin: 04/23/17 11:26 Dose: 500 mg Docusate Sodium (Colace -) 100 mg PO BID [facility] Last Admin: 04/23/17 11:22 Dose: Not Given Escitalopram Oxalate (Lexapro -) 20 mg PO DAILY [facility] Last Admin: 04/23/17 11:23 Dose: 20 mg Ferrous Sulfate (Feosol -) 325 mg PO BID [facility] Last Admin: 04/23/17 11:22 Dose: 325 mg Lorazepam (Ativan Injection -) 0.5 mg IVPUSH Q6H PRN PRN Reason: AGITATION Last Admin: 04/22/17 18:43 Dose: 0.5 mg Metoprolol Succinate (Toprol Xl -) 25 mg PO DAILY [facility] Last Admin: 04/23/17 11:24 Dose: 25 mg Multivitamins/Minerals/Vitamin C (Tab-A-Vit -) 1 tab PO DAILY [facility] Last Admin: 04/23/17 11:23 Dose: 1 tab Nystatin (Mycostatin Cream -) 1 applic TP BID [facility] Last Admin: 04/23/17 14:40 Dose: 1 applic Olanzapine 2.5 mg/ Olanzapine (5 mg) 7.5 mg PO DAILY [facility] Last Admin: 04/23/17 11:27 Dose: 7.5 mg Ondansetron HCl (Zofran Injection) 4 mg IVPB Q6H PRN PRN Reason: NAUSEA Perphenazine (Trilafon) 0.5 mg PO DAILY [facility] Last Admin: 04/23/17 11:25 Dose: 0.5 mg Polyethylene Glycol (Miralax (For Daily Use) -) 17 gm PO BID [facility] Last Admin: 04/23/17 11:24 Dose: Not Given Ranitidine HCl (Zantac -) 150 mg PO BID [facility] Last Admin: 04/23/17 11:26 Dose: 150 mg Tamsulosin HCl (Flomax -) 0.4 mg PO DAILY@0830 [facility] Last Admin: 04/23/17 08:21 Dose: 0.4 mg Vitamin A/Vitamin D (Vitamin A & D Top Oint -) 1 applic TP BID [facility] Last Admin: 04/23/17 11:24 Dose: 1 applic - Objective Vital Signs: Vital Signs Temperature 36.7 C 04/23/17 10:00 Pulse Rate 57 L 04/23/17 10:00 Respiratory Rate 20 04/23/17 10:00 Blood Pressure 125/69 04/23/17 10:00 O2 Sat by Pulse Oximetry (%) 98 04/22/17 09:00 Constitutional: Yes: Well Nourished, No Distress, Calm Cardiovascular: Yes: Regular Rate and Rhythm. No: Gallop, Murmur, Rub Respiratory: Yes: Regular, CTA Bilaterally. No: Rales, Rhonchi, Wheezes Gastrointestinal: Yes: Normal Bowel Sounds, Soft. No: Distention, Tenderness Extremities: Yes: Erythema Edema: No Labs: CBC, BMP 04/23/17 07:15 04/23/17 07:15 Assessment/Plan 1. Cellulitis -finished full course of antibiotics -monitor off of antibiotics per ID 2. UTI -finished full course 3. Hematuria -urology following -urine clearing -harris removed, monitor for retention 4. Metabolic encephalopathy -at baseline 5. DAVID on CKD -at baseline -nephrology following 6. Dementia -continue home regimen 7. BPH -continue flomax -harris removed 8. Anemia -stable
[2017-04-23] MEDS ORDERED: IRON SUCROSE INJECTION 100 MG in SODIUM CHLORIDE 95 ML IVPB ONE (18:54)
--- NOTE | 2017-04-23 18:55 | PN ---
Progress Note (short form) - Note Progress Note: Renal Follow up for SUZI/CKD pt seen and examined in the hallway awake and alert no overnight events voiding w/o harris Vital Signs Temperature 98.0 F 04/23/17 10:00 Pulse Rate 43 L 04/23/17 17:03 Respiratory Rate 20 04/23/17 17:03 Blood Pressure 151/71 04/23/17 17:03 O2 Sat by Pulse Oximetry (%) 98 04/22/17 09:00 Intake & Output 04/20/17 04/21/17 04/22/17 04/23/17 23:59 23:59 23:59 23:59 Intake Total 750 580 150 400 Output Total 1350 400 Balance -600 180 150 400 Gen: NAD, awake and alert CVS: RRR, No M/R Lungs: CTA Abd: soft NT/ND Ext: Trace to 1+ edema in LE Gu: CBI, harris in place CBC, BMP 04/23/17 07:15 04/23/17 07:15 Laboratory Tests 04/23/17 07:15 Calcium 8.7 Albumin 2.4 L Current Medications Acetaminophen (Tylenol -) 650 mg PO Q4H PRN PRN Reason: FEVER OR PAIN Last Admin: 04/18/17 21:01 Dose: 650 mg Albuterol Sulfate (Ventolin 0.083% Nebulizer Soln -) 1 amp NEB Q6H PRN PRN Reason: SHORT OF BREATH/WHEEZING Amlodipine Besylate (Norvasc -) 10 mg PO DAILY [facility] Last Admin: 04/23/17 12:39 Dose: 10 mg Ascorbic Acid (Vitamin C -) 500 mg PO BID [facility] Last Admin: 04/23/17 11:26 Dose: 500 mg Docusate Sodium (Colace -) 100 mg PO BID [facility] Last Admin: 04/23/17 11:22 Dose: Not Given Escitalopram Oxalate (Lexapro -) 20 mg PO DAILY [facility] Last Admin: 04/23/17 11:23 Dose: 20 mg Ferrous Sulfate (Feosol -) 325 mg PO BID [facility] Last Admin: 04/23/17 11:22 Dose: 325 mg Lorazepam (Ativan Injection -) 0.5 mg IVPUSH Q6H PRN PRN Reason: AGITATION Last Admin: 04/22/17 18:43 Dose: 0.5 mg Metoprolol Succinate (Toprol Xl -) 25 mg PO DAILY [facility] Last Admin: 04/23/17 11:24 Dose: 25 mg Multivitamins/Minerals/Vitamin C (Tab-A-Vit -) 1 tab PO DAILY [facility] Last Admin: 04/23/17 11:23 Dose: 1 tab Nystatin (Mycostatin Cream -) 1 applic TP BID [facility] Last Admin: 04/23/17 14:40 Dose: 1 applic Olanzapine 2.5 mg/ Olanzapine (5 mg) 7.5 mg PO DAILY [facility] Last Admin: 04/23/17 11:27 Dose: 7.5 mg Ondansetron HCl (Zofran Injection) 4 mg IVPB Q6H PRN PRN Reason: NAUSEA Perphenazine (Trilafon) 0.5 mg PO DAILY [facility] Last Admin: 04/23/17 11:25 Dose: 0.5 mg Polyethylene Glycol (Miralax (For Daily Use) -) 17 gm PO BID [facility] Last Admin: 04/23/17 11:24 Dose: Not Given Ranitidine HCl (Zantac -) 150 mg PO BID [facility] Last Admin: 04/23/17 11:26 Dose: 150 mg Tamsulosin HCl (Flomax -) 0.4 mg PO DAILY@0830 [facility] Last Admin: 04/23/17 08:21 Dose: 0.4 mg Vitamin A/Vitamin D (Vitamin A & D Top Oint -) 1 applic TP BID [facility] Last Admin: 04/23/17 11:24 Dose: 1 applic A/P 86 year old Gentleman with PMhx of CKD (baseline 2.1-2.6), CHF, Anemia, GIB, Hyperlipidemia s/p recent admission for acute on chronic anemia who was readmitted from [place] with gross hematuria #Hematuria s/p Cysto Hematuria improved and harris removed #SUZI on CKD Renal function stable at this time pt now with signs of worsening LE edema consider starting Lasix 40mg Daily #Hypertension Continue amlodipine no DIPTI/ARB at this time given low eGFR #Anemia Hgb with slight downtrend Will order IV venofer x 1 today as iron saturation is low start Epogen 20k Qweek starting tomorrow #Cellulitis continue Abx as per ID Teja Mercedes DO
[2017-04-23] MEDS: LORazepam 2 MG/ML SDV VIAL IVPUSH PRN (20:24)
--- NOTE | 2017-04-23 23:19 | PN ---
Progress Note (short form) - Note Progress Note: UROLOGY. pt. with h/o urinary retention no help with meds s/p tuvp/turp pt. is voiding well but is still incontent of urine.
[2017-04-24 07:32] LABS: BASOPHIL 0.7 % (0-2.0); EOSINOPHIL 4.8 % (0-4.5); MCH 31.4 pg (25.7-33.7); MEAN CELL VOLUME 92.3 fl (80-96); MEAN PLT VOLUME 8.1 fl (7.5-11.1); NEUTROPHILS 80.5 % (42.8-82.8); PLATELET COUNT 265 K/MM3 (134-434); RDW 15.2 % (11.9-15.9); WHITE BLOOD COUNT 7.3 K/mm3 (4.0-10.0)
[2017-04-24 07:59] LABS: ANION GAP 7 (8-16); CALCIUM 9.2 mg/dL (8.5-10.1); CO2 26 mmol/L (21-32); CREATININE 2.4 mg/dL (0.7-1.3); GLUCOSE,RANDOM 78 mg/dL (74-106); MAGNESIUM 1.9 mg/dL (1.8-2.4); PHOSPHOROUS 4.6 mg/dL (2.5-4.9)
--- NOTE | 2017-04-24 08:45 | PN ---
Progress Note (short form) - Note Progress Note: chart reviewed pt cont to be incontinent w/u can be done as outpt
[2017-04-24] MEDS: amLODIPine BESYLATE 10 MG TABLET (FP) PO SCH (09:55)
[2017-04-24] MEDS: ESCITALOPRAM OXALATE 20 MG TABLET (FP) PO SCH (09:55)
[2017-04-24] MEDS: DOCUSATE SODIUM 100 MG CAPSULE (FP) PO SCH ×2 (09:55→21:26)
[2017-04-24] MEDS: ASCORBIC ACID 500 MG TABLET (FP) PO SCH ×2 (09:56→21:26)
[2017-04-24] MEDS: PERPHENAZINE 2 MG TABLET PO SCH (09:56)
[2017-04-24] MEDS: METOPROLOL SUCCINATE 25 MG TAB.SR.24H (FP) PO SCH (09:56)
[2017-04-24] MEDS: FERROUS SO4 325 MG TABLET (FP) PO SCH ×2 (09:56→21:26)
[2017-04-24] MEDS: RANITIDINE HCL 150 MG TABLET (FP) PO SCH ×2 (09:56→21:26)
[2017-04-24] MEDS: TAMSULOSIN HCL 0.4 MG CAP.ER.24H (FP) PO SCH (09:56)
[2017-04-24] MEDS: OLANZAPINE 2.5 MG, OLANZAPINE 5 MG PO SCH (09:56)
[2017-04-24] MEDS: MULTIVITAMINS (DAILY MVI) TABLET (FP) PO SCH (09:56)
[2017-04-24] MEDS: POLYETHYLENE GLYCOL 3350 119 GM BTL PO SCH ×2 (09:57→21:27)
[2017-04-24] MEDS: VITAMINS A AND D TOPICAL OINTMENT 60 GM TUBE TP SCH ×2 (09:57→21:27)
[2017-04-24] MEDS: NYSTATIN 100,000 UNIT/GM TOPICAL CREAM 15 GM TUBE TP SCH ×2 (09:58→21:27)
--- NOTE | 2017-04-24 11:47 | PN ---
Progress Note, Physician Chief Complaint: Mr Reynoso is without complaint. No cp, sob, n/v. - Current Medication List Current Medications: Active Medications Acetaminophen (Tylenol -) 650 mg PO Q4H PRN PRN Reason: FEVER OR PAIN Last Admin: 04/18/17 21:01 Dose: 650 mg Albuterol Sulfate (Ventolin 0.083% Nebulizer Soln -) 1 amp NEB Q6H PRN PRN Reason: SHORT OF BREATH/WHEEZING Amlodipine Besylate (Norvasc -) 10 mg PO DAILY [facility] Last Admin: 04/24/17 09:55 Dose: Not Given Ascorbic Acid (Vitamin C -) 500 mg PO BID [facility] Last Admin: 04/24/17 09:56 Dose: 500 mg Docusate Sodium (Colace -) 100 mg PO BID [facility] Last Admin: 04/24/17 09:55 Dose: 100 mg Epoetin Neel (Procrit -) 20,000 unit SQ ONCE ONE Stop: 04/24/17 12:01 Escitalopram Oxalate (Lexapro -) 20 mg PO DAILY [facility] Last Admin: 04/24/17 09:55 Dose: 20 mg Ferrous Sulfate (Feosol -) 325 mg PO BID [facility] Last Admin: 04/24/17 09:56 Dose: 325 mg Metoprolol Succinate (Toprol Xl -) 25 mg PO DAILY [facility] Last Admin: 04/24/17 09:56 Dose: Not Given Multivitamins/Minerals/Vitamin C (Tab-A-Vit -) 1 tab PO DAILY [facility] Last Admin: 04/24/17 09:56 Dose: 1 tab Nystatin (Mycostatin Cream -) 1 applic TP BID [facility] Last Admin: 04/24/17 09:58 Dose: 1 applic Olanzapine 2.5 mg/ Olanzapine (5 mg) 7.5 mg PO DAILY [facility] Last Admin: 04/24/17 09:56 Dose: 7.5 mg Ondansetron HCl (Zofran Injection) 4 mg IVPB Q6H PRN PRN Reason: NAUSEA Perphenazine (Trilafon) 0.5 mg PO DAILY [facility] Last Admin: 04/24/17 09:56 Dose: 0.5 mg Polyethylene Glycol (Miralax (For Daily Use) -) 17 gm PO BID [facility] Last Admin: 04/24/17 09:57 Dose: Not Given Ranitidine HCl (Zantac -) 150 mg PO BID [facility] Last Admin: 04/24/17 09:56 Dose: 150 mg Tamsulosin HCl (Flomax -) 0.4 mg PO DAILY@0830 [facility] Last Admin: 04/24/17 09:56 Dose: 0.4 mg Vitamin A/Vitamin D (Vitamin A & D Top Oint -) 1 applic TP BID [facility] Last Admin: 04/24/17 09:57 Dose: 1 applic - Objective Vital Signs: Vital Signs Temperature 36.9 C 04/24/17 10:00 Pulse Rate 62 04/24/17 10:00 Respiratory Rate 18 04/24/17 10:00 Blood Pressure 108/46 04/24/17 10:00 O2 Sat by Pulse Oximetry (%) 98 04/24/17 09:00 Constitutional: Yes: Well Nourished, No Distress, Calm Cardiovascular: Yes: Regular Rate and Rhythm. No: Gallop, Murmur, Rub Respiratory: Yes: Regular, CTA Bilaterally. No: Rales, Rhonchi, Wheezes Gastrointestinal: Yes: Normal Bowel Sounds, Soft. No: Distention, Tenderness Extremities: Yes: Erythema Edema: No Labs: CBC, BMP 04/24/17 06:00 04/24/17 06:00 Assessment/Plan 1. Cellulitis -finished full course of antibiotics -monitor off of antibiotics per ID 2. UTI -finished full course 3. Hematuria -resolved -safe to follow as an outpatient 4. Metabolic encephalopathy -at baseline 5. DAVID on CKD -at baseline -nephrology following 6. Dementia -continue home regimen 7. BPH -continue flomax -harris removed 8. Anemia -decreasing -transfuse 1 unit today -epogen tomorrow Dispo -plan for discharge tomorrow
[2017-04-24] MEDS ORDERED: EPOETIN ALFA 20,000 UNIT/1 ML VIAL SQ ONE (12:00)
--- NOTE | 2017-04-24 13:49 | PN ---
Progress Note, Physician History of Present Illness: stable no issues calm - Current Medication List Current Medications: Active Medications Acetaminophen (Tylenol -) 650 mg PO Q4H PRN PRN Reason: FEVER OR PAIN Last Admin: 04/18/17 21:01 Dose: 650 mg Albuterol Sulfate (Ventolin 0.083% Nebulizer Soln -) 1 amp NEB Q6H PRN PRN Reason: SHORT OF BREATH/WHEEZING Amlodipine Besylate (Norvasc -) 10 mg PO DAILY [facility] Last Admin: 04/24/17 09:55 Dose: Not Given Ascorbic Acid (Vitamin C -) 500 mg PO BID [facility] Last Admin: 04/24/17 09:56 Dose: 500 mg Docusate Sodium (Colace -) 100 mg PO BID [facility] Last Admin: 04/24/17 09:55 Dose: 100 mg Escitalopram Oxalate (Lexapro -) 20 mg PO DAILY [facility] Last Admin: 04/24/17 09:55 Dose: 20 mg Ferrous Sulfate (Feosol -) 325 mg PO BID [facility] Last Admin: 04/24/17 09:56 Dose: 325 mg Metoprolol Succinate (Toprol Xl -) 25 mg PO DAILY [facility] Last Admin: 04/24/17 09:56 Dose: Not Given Multivitamins/Minerals/Vitamin C (Tab-A-Vit -) 1 tab PO DAILY [facility] Last Admin: 04/24/17 09:56 Dose: 1 tab Nystatin (Mycostatin Cream -) 1 applic TP BID [facility] Last Admin: 04/24/17 09:58 Dose: 1 applic Olanzapine 2.5 mg/ Olanzapine (5 mg) 7.5 mg PO DAILY [facility] Last Admin: 04/24/17 09:56 Dose: 7.5 mg Ondansetron HCl (Zofran Injection) 4 mg IVPB Q6H PRN PRN Reason: NAUSEA Perphenazine (Trilafon) 0.5 mg PO DAILY [facility] Last Admin: 04/24/17 09:56 Dose: 0.5 mg Polyethylene Glycol (Miralax (For Daily Use) -) 17 gm PO BID [facility] Last Admin: 04/24/17 09:57 Dose: Not Given Ranitidine HCl (Zantac -) 150 mg PO BID [facility] Last Admin: 04/24/17 09:56 Dose: 150 mg Tamsulosin HCl (Flomax -) 0.4 mg PO DAILY@0830 [facility] Last Admin: 04/24/17 09:56 Dose: 0.4 mg Vitamin A/Vitamin D (Vitamin A & D Top Oint -) 1 applic TP BID [facility] Last Admin: 04/24/17 09:57 Dose: 1 applic - Objective Vital Signs: Vital Signs Temperature 98.4 F 04/24/17 10:00 Pulse Rate 62 04/24/17 10:00 Respiratory Rate 18 04/24/17 10:00 Blood Pressure 108/46 04/24/17 10:00 O2 Sat by Pulse Oximetry (%) 98 04/24/17 09:00 Constitutional: Yes: No Distress, Calm Cardiovascular: Yes: Regular Rate and Rhythm Respiratory: Yes: Regular, CTA Bilaterally Gastrointestinal: Yes: Normal Bowel Sounds, Soft Musculoskeletal: Yes: Other Extremities: Yes: Other Integumentary: Yes: Erythema (resolved) Neurological: Yes: Alert Psychiatric: Yes: Alert Labs: CBC, BMP 04/24/17 06:00 04/24/17 06:00 Assessment/Plan uti hematuria cough cellulitis of the rt leg arf patient now has stasis cellulittis ahs resolved plan continue current mgmt rest as per primary team stable off of abx urology following
[2017-04-24] MEDS ORDERED: LORazepam 2 MG/ML SDV VIAL ONE (14:21)
[2017-04-24] MEDS: LORazepam 2 MG/ML SDV VIAL IVPUSH PRN (14:22)
--- NOTE | 2017-04-24 17:46 | PN ---
Progress Note (short form) - Note Progress Note: Renal Follow up for SUZI/CKD pt seen and examined in the hallway no overnight events legs getting more swollen Vital Signs Temperature 98.6 F 04/24/17 15:06 Pulse Rate 81 04/24/17 15:06 Respiratory Rate 18 04/24/17 15:06 Blood Pressure 127/67 04/24/17 15:06 O2 Sat by Pulse Oximetry (%) 98 04/24/17 09:00 Intake & Output 04/21/17 04/22/17 04/23/17 04/24/17 23:59 23:59 23:59 23:59 Intake Total 580 150 640 300 Output Total 400 Balance 180 150 640 300 Gen: NAD, awake and alert CVS: RRR, No M/R Lungs: CTA Abd: soft NT/ND Ext: Trace to 1+ edema in LE Gu: CBI, harris in place CBC, BMP 04/24/17 06:00 04/24/17 06:00 Current Medications Acetaminophen (Tylenol -) 650 mg PO Q4H PRN PRN Reason: FEVER OR PAIN Last Admin: 04/18/17 21:01 Dose: 650 mg Albuterol Sulfate (Ventolin 0.083% Nebulizer Soln -) 1 amp NEB Q6H PRN PRN Reason: SHORT OF BREATH/WHEEZING Amlodipine Besylate (Norvasc -) 10 mg PO DAILY [facility] Last Admin: 04/24/17 09:55 Dose: Not Given Ascorbic Acid (Vitamin C -) 500 mg PO BID [facility] Last Admin: 04/24/17 09:56 Dose: 500 mg Docusate Sodium (Colace -) 100 mg PO BID [facility] Last Admin: 04/24/17 09:55 Dose: 100 mg Escitalopram Oxalate (Lexapro -) 20 mg PO DAILY [facility] Last Admin: 04/24/17 09:55 Dose: 20 mg Ferrous Sulfate (Feosol -) 325 mg PO BID [facility] Last Admin: 04/24/17 09:56 Dose: 325 mg Furosemide (Lasix -) 40 mg PO DAILY [facility] Lorazepam (Ativan Injection -) 0.5 mg IVPUSH Q6H PRN PRN Reason: AGITATION Metoprolol Succinate (Toprol Xl -) 25 mg PO DAILY [facility] Last Admin: 04/24/17 09:56 Dose: Not Given Multivitamins/Minerals/Vitamin C (Tab-A-Vit -) 1 tab PO DAILY [facility] Last Admin: 04/24/17 09:56 Dose: 1 tab Nystatin (Mycostatin Cream -) 1 applic TP BID [facility] Last Admin: 04/24/17 09:58 Dose: 1 applic Olanzapine 2.5 mg/ Olanzapine (5 mg) 7.5 mg PO DAILY [facility] Last Admin: 04/24/17 09:56 Dose: 7.5 mg Ondansetron HCl (Zofran Injection) 4 mg IVPB Q6H PRN PRN Reason: NAUSEA Perphenazine (Trilafon) 0.5 mg PO DAILY [facility] Last Admin: 04/24/17 09:56 Dose: 0.5 mg Polyethylene Glycol (Miralax (For Daily Use) -) 17 gm PO BID [facility] Last Admin: 04/24/17 09:57 Dose: Not Given Ranitidine HCl (Zantac -) 150 mg PO BID [facility] Last Admin: 04/24/17 09:56 Dose: 150 mg Tamsulosin HCl (Flomax -) 0.4 mg PO DAILY@0830 [facility] Last Admin: 04/24/17 09:56 Dose: 0.4 mg Vitamin A/Vitamin D (Vitamin A & D Top Oint -) 1 applic TP BID [facility] Last Admin: 04/24/17 09:57 Dose: 1 applic A/P 86 year old Gentleman with PMhx of CKD (baseline 2.1-2.6), CHF, Anemia, GIB, Hyperlipidemia s/p recent admission for acute on chronic anemia who was readmitted from [place] with gross hematuria #Hematuria/Anemia Hgb still downtrending, no gross hematuria noted getting prbc #SUZI on CKD Renal function stable edema worsening, will start lasix 40mg Daily Trend BUN/Cr #Hypertension Continue amlodipine no DIPTI/ARB at this time given low eGFR #Anemia Hgb with slight downtrend s/p Venofer and epogen #Cellulitis s/p Abx Teja Mercedes DO
[2017-04-24] MEDS: FUROSEMIDE 40 MG TABLET (FP) PO SCH (17:52)
[2017-04-25] MEDS: LORazepam 2 MG/ML SDV VIAL IVPUSH PRN ×2 (02:41→14:47)
[2017-04-25 06:47] VITALS: PULSE 76; TEMP 98.2
[2017-04-25 07:18] LABS: MCH 30.8 pg (25.7-33.7); MCHC 34.2 g/dl (32.0-35.9); PLATELET COUNT 263 K/MM3 (134-434); RDW 17.5 % (11.9-15.9); WHITE BLOOD COUNT 8.6 K/mm3 (4.0-10.0)
[2017-04-25 07:32] LABS: ANION GAP 10 (8-16); CALCIUM 8.6 mg/dL (8.5-10.1); CO2 25 mmol/L (21-32); CREATININE 2.3 mg/dL (0.7-1.3); GLUCOSE,RANDOM 80 mg/dL (74-106); MAGNESIUM 1.9 mg/dL (1.8-2.4); PHOSPHOROUS 4.4 mg/dL (2.5-4.9)
[2017-04-25 09:49] LABS: BASOPHIL (MANUAL) 1 % (0-2.0); TOTAL CELLS COUNTED 100
[2017-04-25] MEDS: MULTIVITAMINS (DAILY MVI) TABLET (FP) PO SCH (09:59)
[2017-04-25] MEDS: FERROUS SO4 325 MG TABLET (FP) PO SCH (09:59)
[2017-04-25] MEDS: NYSTATIN 100,000 UNIT/GM TOPICAL CREAM 15 GM TUBE TP SCH (09:59)
[2017-04-25] MEDS: amLODIPine BESYLATE 10 MG TABLET (FP) PO SCH (09:59)
[2017-04-25] MEDS: VITAMINS A AND D TOPICAL OINTMENT 60 GM TUBE TP SCH (09:59)
[2017-04-25] MEDS: RANITIDINE HCL 150 MG TABLET (FP) PO SCH (09:59)
[2017-04-25] MEDS: ASCORBIC ACID 500 MG TABLET (FP) PO SCH (09:59)
[2017-04-25] MEDS: ESCITALOPRAM OXALATE 20 MG TABLET (FP) PO SCH (09:59)
[2017-04-25] MEDS: TAMSULOSIN HCL 0.4 MG CAP.ER.24H (FP) PO SCH (09:59)
[2017-04-25] MEDS: FUROSEMIDE 40 MG TABLET (FP) PO SCH (09:59)
[2017-04-25] MEDS: DOCUSATE SODIUM 100 MG CAPSULE (FP) PO SCH (09:59)
[2017-04-25] MEDS: METOPROLOL SUCCINATE 25 MG TAB.SR.24H (FP) PO SCH (09:59)
[2017-04-25] MEDS: PERPHENAZINE 2 MG TABLET PO SCH (10:00)
[2017-04-25] MEDS: POLYETHYLENE GLYCOL 3350 119 GM BTL PO SCH (10:00)
[2017-04-25] MEDS: OLANZAPINE 2.5 MG, OLANZAPINE 5 MG PO SCH (10:00)
[2017-04-25 10:56] VITALS: BP 144/62
--- NOTE | 2017-04-25 12:30 | PN ---
Progress Note, Physician History of Present Illness: stable no issues calm - Current Medication List Current Medications: Active Medications Acetaminophen (Tylenol -) 650 mg PO Q4H PRN PRN Reason: FEVER OR PAIN Last Admin: 04/18/17 21:01 Dose: 650 mg Albuterol Sulfate (Ventolin 0.083% Nebulizer Soln -) 1 amp NEB Q6H PRN PRN Reason: SHORT OF BREATH/WHEEZING Amlodipine Besylate (Norvasc -) 10 mg PO DAILY [facility] Last Admin: 04/25/17 09:59 Dose: 10 mg Ascorbic Acid (Vitamin C -) 500 mg PO BID [facility] Last Admin: 04/25/17 09:59 Dose: 500 mg Docusate Sodium (Colace -) 100 mg PO BID [facility] Last Admin: 04/25/17 09:59 Dose: 100 mg Escitalopram Oxalate (Lexapro -) 20 mg PO DAILY [facility] Last Admin: 04/25/17 09:59 Dose: 20 mg Ferrous Sulfate (Feosol -) 325 mg PO BID [facility] Last Admin: 04/25/17 09:59 Dose: 325 mg Furosemide (Lasix -) 40 mg PO DAILY [facility] Last Admin: 04/25/17 09:59 Dose: 40 mg Lorazepam (Ativan Injection -) 0.5 mg IVPUSH Q6H PRN PRN Reason: AGITATION Last Admin: 04/25/17 02:41 Dose: 0.5 mg Metoprolol Succinate (Toprol Xl -) 25 mg PO DAILY [facility] Last Admin: 04/25/17 09:59 Dose: 25 mg Multivitamins/Minerals/Vitamin C (Tab-A-Vit -) 1 tab PO DAILY [facility] Last Admin: 04/25/17 09:59 Dose: 1 tab Nystatin (Mycostatin Cream -) 1 applic TP BID [facility] Last Admin: 04/25/17 09:59 Dose: 1 applic Olanzapine 2.5 mg/ Olanzapine (5 mg) 7.5 mg PO DAILY [facility] Last Admin: 04/25/17 10:00 Dose: 7.5 mg Ondansetron HCl (Zofran Injection) 4 mg IVPB Q6H PRN PRN Reason: NAUSEA Perphenazine (Trilafon) 0.5 mg PO DAILY [facility] Last Admin: 04/25/17 10:00 Dose: 0.5 mg Polyethylene Glycol (Miralax (For Daily Use) -) 17 gm PO BID [facility] Last Admin: 04/25/17 10:00 Dose: Not Given Ranitidine HCl (Zantac -) 150 mg PO BID [facility] Last Admin: 04/25/17 09:59 Dose: 150 mg Tamsulosin HCl (Flomax -) 0.4 mg PO DAILY@0830 [facility] Last Admin: 04/25/17 09:59 Dose: 0.4 mg Vitamin A/Vitamin D (Vitamin A & D Top Oint -) 1 applic TP BID [facility] Last Admin: 04/25/17 09:59 Dose: 1 applic - Objective Vital Signs: Vital Signs Temperature 98.2 F 04/25/17 10:00 Pulse Rate 76 04/25/17 10:00 Respiratory Rate 18 04/25/17 10:00 Blood Pressure 144/62 04/25/17 10:00 O2 Sat by Pulse Oximetry (%) 98 04/25/17 09:00 Constitutional: Yes: No Distress, Calm HENT: Yes: Atraumatic, Normocephalic Neck: Yes: Supple Cardiovascular: Yes: Regular Rate and Rhythm Respiratory: Yes: Regular, CTA Bilaterally Gastrointestinal: Yes: Normal Bowel Sounds, Soft Musculoskeletal: Yes: Other Extremities: Yes: Other Wound/Incision: Yes: Other Neurological: Yes: Alert Psychiatric: Yes: Alert Labs: CBC, BMP 04/25/17 06:00 04/25/17 06:00 Assessment/Plan uti hematuria cough cellulitis of the rt leg arf patient now has stasis cellulittis ahs resolved plan continue current mgmt rest as per primary team stable off of abx urology following
--- NOTE | 2017-04-25 14:47 | DS ---
Physical Examination Vital Signs: Vital Signs Temperature 36.8 C 04/25/17 10:00 Pulse Rate 76 04/25/17 10:00 Respiratory Rate 18 04/25/17 10:00 Blood Pressure 144/62 04/25/17 10:00 O2 Sat by Pulse Oximetry (%) 98 04/25/17 09:00 Constitutional: Yes: Well Nourished, No Distress, Calm Cardiovascular: Yes: Regular Rate and Rhythm. No: Gallop, Murmur, Rub Respiratory: Yes: Regular, CTA Bilaterally. No: Rhonchi, Wheezes Gastrointestinal: Yes: Normal Bowel Sounds, Soft. No: Distention, Tenderness Extremities: Yes: WNL Edema: No Labs: CBC, BMP 04/25/17 06:00 04/25/17 06:00 Discharge Summary Reason For Visit: CELLULITIS OF RIGHT LOWER EXTREMITY Current Active Problems Cellulitis of leg, right (Acute) Gross hematuria (Acute) Hospital Course: 1. Cellulitis 2. UTI 3. Hematuria 4. Metabolic encephalopathy 5. DAVID on CKD 6. Dementia 7. BPH 8. Anemia Mr Reynoso is an 86 year old male who came in with hematuria with UTI and cellulitis. He was admitted to the hospital and seen by ID. He finished a full course of antibiotics while here. He was seen by urology and was placed on a CBI , eventually he underwent cystoscopy and was able to have his harris removed. He was transfused secondary to anemia, currently this is stable. He should continue to follow with nephrology as an outpatient for epogen and/or iron infusions. Currently he is safe for discharge to SNF 31 minutes spent in preparation of this discharge Condition: Stable - Instructions Diet, Activity, Other Instructions: resume previous diet and activity Referrals: Cesario Montiel MD [Primary Care Provider] - Vivek Gonzales MD [Staff Physician] - Teja Mercedes MD [Staff Physician] - Disposition: LONG-TERM FACILITY - Home Medications Comprehensive Discharge Medication List: Ambulatory Orders Acetaminophen [Tylenol] 650 mg PO DAILY 04/05/17 Amlodipine Besylate 10 mg PO DAILY 04/05/17 Ascorbate Calcium [Vitamin C] 500 mg PO BID 04/05/17 Cilostazol 100 mg PO BID 04/05/17 Docusate Sodium [Colace -] 100 mg PO HS 04/05/17 Escitalopram Oxalate [Lexapro -] 20 mg PO DAILY 04/05/17 Ferrous Sulfate 325 mg PO BID 04/05/17 Krill Oil/[place]-3/Dha/Epa [[place]-3 Krill Oil Softgel] 1 each PO DAILY 04/05/17 Metoprolol Succinate [Toprol XL -] 25 mg PO DAILY 04/05/17 Multivitamin [One Daily] 1 each PO DAILY 04/05/17 Olanzapine 7.5 mg PO DAILY 04/05/17 Perphenazine [Trilafon -] 0.5 mg PO DAILY 04/05/17 Petrolatum,White/Lanolin [Vitamin A & D Ointment] 454 gm TP BID 04/05/17 Ranitidine [Zantac -] 150 mg PO BID 04/05/17 Tamsulosin HCl [Flomax] 0.4 mg PO DAILY 04/05/17 Furosemide [Lasix -] 40 mg PO DAILY tablet 04/25/17
--- NOTE | 2017-04-25 16:27 | PN ---
Progress Note (short form) - Note Progress Note: Renal Follow up for SUZI/CKD pt seen and examined in the hallway pt continues to be agitated legs more swollen making urine Vital Signs Temperature 98.2 F 04/25/17 10:00 Pulse Rate 76 04/25/17 10:00 Respiratory Rate 18 04/25/17 10:00 Blood Pressure 144/62 04/25/17 10:00 O2 Sat by Pulse Oximetry (%) 98 04/25/17 09:00 Intake & Output 04/22/17 04/23/17 04/24/17 04/25/17 23:59 23:59 23:59 23:59 Intake Total 823 574 7747 640 Balance 072 732 0523 640 Gen: NAD, awake and alert CVS: RRR, No M/R Lungs: CTA Abd: soft NT/ND Ext: Trace to 1+ edema in LE Gu: CBI, harris in place CBC, BMP 04/25/17 06:00 04/25/17 06:00 Current Medications Acetaminophen (Tylenol -) 650 mg PO Q4H PRN PRN Reason: FEVER OR PAIN Last Admin: 04/18/17 21:01 Dose: 650 mg Albuterol Sulfate (Ventolin 0.083% Nebulizer Soln -) 1 amp NEB Q6H PRN PRN Reason: SHORT OF BREATH/WHEEZING Amlodipine Besylate (Norvasc -) 10 mg PO DAILY [facility] Last Admin: 04/25/17 09:59 Dose: 10 mg Ascorbic Acid (Vitamin C -) 500 mg PO BID [facility] Last Admin: 04/25/17 09:59 Dose: 500 mg Docusate Sodium (Colace -) 100 mg PO BID [facility] Last Admin: 04/25/17 09:59 Dose: 100 mg Escitalopram Oxalate (Lexapro -) 20 mg PO DAILY [facility] Last Admin: 04/25/17 09:59 Dose: 20 mg Ferrous Sulfate (Feosol -) 325 mg PO BID [facility] Last Admin: 04/25/17 09:59 Dose: 325 mg Furosemide (Lasix -) 40 mg PO BID@0600,1400 [facility] Lorazepam (Ativan Injection -) 0.5 mg IVPUSH Q6H PRN PRN Reason: AGITATION Last Admin: 04/25/17 14:47 Dose: 0.5 mg Metoprolol Succinate (Toprol Xl -) 25 mg PO DAILY [facility] Last Admin: 04/25/17 09:59 Dose: 25 mg Multivitamins/Minerals/Vitamin C (Tab-A-Vit -) 1 tab PO DAILY [facility] Last Admin: 04/25/17 09:59 Dose: 1 tab Nystatin (Mycostatin Cream -) 1 applic TP BID [facility] Last Admin: 04/25/17 09:59 Dose: 1 applic Olanzapine 2.5 mg/ Olanzapine (5 mg) 7.5 mg PO DAILY [facility] Last Admin: 04/25/17 10:00 Dose: 7.5 mg Ondansetron HCl (Zofran Injection) 4 mg IVPB Q6H PRN PRN Reason: NAUSEA Perphenazine (Trilafon) 0.5 mg PO DAILY [facility] Last Admin: 04/25/17 10:00 Dose: 0.5 mg Polyethylene Glycol (Miralax (For Daily Use) -) 17 gm PO BID [facility] Last Admin: 04/25/17 10:00 Dose: Not Given Ranitidine HCl (Zantac -) 150 mg PO BID [facility] Last Admin: 04/25/17 09:59 Dose: 150 mg Tamsulosin HCl (Flomax -) 0.4 mg PO DAILY@0830 [facility] Last Admin: 04/25/17 09:59 Dose: 0.4 mg Vitamin A/Vitamin D (Vitamin A & D Top Oint -) 1 applic TP BID [facility] Last Admin: 04/25/17 09:59 Dose: 1 applic A/P 86 year old Gentleman with PMhx of CKD (baseline 2.1-2.6), CHF, Anemia, GIB, Hyperlipidemia s/p recent admission for acute on chronic anemia who was readmitted from [facility] with gross hematuria #Hematuria/Anemia Hgb improved s/p prbc transfusion no gross hematuria at this time #SUZI on CKD Renal function stable edema persists and appers worse, will increase Lasix to 40mg BID Trend BUN/Cr and weights as outpatient #Hypertension Continue amlodipine no DIPTI/ARB at this time given low eGFR #Anemia Hgb with slight downtrend s/p Venofer and epogen #Cellulitis s/p Abx Teja Mercedes DO
[2017-04-25] MEDS ORDERED: FUROSEMIDE 40 MG TABLET (FP) PO SCH (16:30)
--- NOTE | 2017-05-04 15:29 | OP ---
DATE OF OPERATION: DATE OF DICTATION: 04/14/2017 Patient is an 86-year-old male with one-week history of gross total painless hematuria, anemia requiring transfusions, history of obstructive uropathy, history of accidental removal of Seay. SURGEON: Ron Howard MD PREOPERATIVE DIAGNOSIS: Gross hematuria, obstructive uropathy. POSTOPERATIVE DIAGNOSIS: Clot retention, bleeding, obstructing prostate gland. OPERATIVE PROCEDURE: Cystourethroscopy, evacuation of clots, transurethral resection vaporization, and transurethral resection of the prostate. ANESTHESIA: General. BLOOD LOSS: 50 mL. ANESTHESIA: MAC. DESCRIPTION OF PROCEDURE: Under above stated anesthesia, patient was prepped and draped in the usual sterile manner. He was placed in the dorsal lithotomy position. He was given 1 g of Ancef and 500 mg of Levaquin IV prior to the procedure. Using a 30-degree continuous-flow scope, the anterior urethra was normal. Prostatic urethra revealed trilobar hypertrophy of the prostate. There was lateral lobe kissing. The prostate appeared to be hemorrhagic with active bleeding. Inspection of the bladder revealed that it was filled with old clots that were organized using vigorous irrigation with an Ellik evacuator and biopsy forceps. The clots were broken up and approximately 200 mL of clots were evacuated. Afterwards, inspection of the bladder revealed a grade 2 trabeculation throughout the bladder. No lesions were noted. No calculi were seen. Ureteral orifices were within normal limits with efflux of clear urine bilaterally. Dome and lateral long were clear. The prostate revealed trilobar hypertrophy with obstruction and bleeding. Therefore, using the plasma button, the median lobe was vaporized down to the base and part of the lateral lobes from the 6 o'clock position to the 12 o'clock position, both on the right side and left side. Afterwards, a plasma button was used and the lobes were vaporized to the capsule. The prostate chips were evacuated with an Ellik evacuator. No active bleeding was noted. A 24-[place] 3-way 30-mL Seay catheter was inserted. This was connected to continuous bladder irrigation. The patient tolerated the procedure well. He returned to the recovery room in good condition. Vishal [id number]
== END 2017-04-25 18:11 | DRG 665 ==
LOC: JER 09:26 → JERBED 13:37 → J8W 15:44
PROVIDERS: ADMIT Internal Medicine; ATTEND Internal Medicine
PROC: 30233N1 Transfusion of Nonautologous Red Blood Cells into Peripheral Vein, Percutaneous Approach (ICD-10-PCS; 2017-04-12)
PROC: 0V907ZX Drainage of Prostate, Via Natural or Artificial Opening, Diagnostic (ICD-10-PCS; 2017-04-14)
PROC: 0TJB8ZZ Inspection of Bladder, Via Natural or Artificial Opening Endoscopic (ICD-10-PCS; 2017-04-14)
PROC: 0VB08ZZ Excision of Prostate, Via Natural or Artificial Opening Endoscopic (ICD-10-PCS; principal; 2017-04-14 08:00)
DX: N39.0 Urinary tract infection, site not specified (principal); G93.41 Metabolic encephalopathy; L03.115 Cellulitis of right lower limb; N17.9 Acute kidney failure, unspecified; E87.0 Hyperosmolality and hypernatremia; F03.90 Unspecified dementia, unspecified severity, without behavioral disturbance, psychotic disturbance, mood disturbance, and anxiety; N40.0 Benign prostatic hyperplasia without lower urinary tract symptoms; I12.9 Hypertensive chronic kidney disease with stage 1 through stage 4 chronic kidney disease, or unspecified chronic kidney disease; E78.5 Hyperlipidemia, unspecified; R31.0 Gross hematuria; D64.9 Anemia, unspecified; E88.09 Other disorders of plasma-protein metabolism, not elsewhere classified; N18.3 Chronic kidney disease, stage 3 (moderate); R33.9 Retention of urine, unspecified
CPT/HCPCS: 36415; 36430; 71010-TC; 76775-TC; 76856-TC; 80048; 80053; 81003; 81015; 82553; 82728; 83540; 83550; 83605; 83735; 84100; 84484; 85025; 86850; 86900; 86901; 86922; 87040; 87086; 87186; 88304-TC; 88305-TC; 93005; 93010; 94010; 94640; 94760; 97116-GP; 97161-GP; 99285-25; J0885; J1644; J1756; P9038; P9058

== ENCOUNTER 2017-05-05 16:38 | Inpatient (IN) | payer OTHER ==
--- NOTE | 2017-05-05 17:12 | PDOC ---
History of Present Illness <Devin King - Last Filed: 05/05/17 18:24> - History of Present Illness Initial Comments: 05/05/17 18:13 Patient is an 86-year-old male with past medical history of hypertension, CHF, CAD, schizophrenia, depression who presents to the emergency department today after falling from his wheelchair. Patient is disoriented upon history of present illness and information is received from EMS. According to EMS the patient fell out of his wheelchair at [facility] in the [place]. The fall was unwitnessed and the patient hit his head. He was transported for further evaluation of his head lack. Patient is disoriented and cannot give in history of present illness at this time. 1. Vital signs are notable for a rectal temperature of 91.5F, and a pulse of 35. <Kari Mccormack - Last Filed: 05/05/17 19:20> <Latoya Gandara - Last Filed: 05/05/17 20:48> - General Chief Complaint: Injury Stated Complaint: HEAD LACERATION Time Seen by Provider: 05/05/17 16:47 Past History <Devin King - Last Filed: 05/05/17 18:24> - Travel Traveled outside of the country in the last 30 days: No Close contact w/someone who was outside of country & ill: No - Past Medical History Anemia: Yes Asthma: No Cancer: No Cardiac Disorders: Yes (CHF) CVA: No COPD: No CHF: No Dementia: No Diabetes: No GI Disorders: Yes (GI BLD-TRANSFUSED) Disorders: Yes (BPH) HTN: Yes Hypercholesterolemia: Yes Liver Disease: No Seizures: No Thyroid Disease: No - Surgical History Abdominal Surgery: No Appendectomy: No Cardiac Surgery: No Cholecystectomy: Yes Lung Surgery: No Neurologic Surgery: No Orthopedic Surgery: No - Suicide/Smoking/Psychosocial Hx Smoking History: Unknown if ever smoked Have you smoked in the past 12 months: No Number of Cigarettes Smoked Daily: 15 If you are a former smoker, when did you quit?: does not remember 'Breaking Loose' booklet given: 01/26/17 Hx Alcohol Use: No Drug/Substance Use Hx: No Substance Use Type: None Hx Substance Use Treatment: No <Kari Mccormack - Last Filed: 05/05/17 19:20> <Latoya Gandara - Last Filed: 05/05/17 20:48> - Past Medical History Allergies/Adverse Reactions: Allergies Allergy/AdvReac Type Severity Reaction Status Date / Time No Known Drug Allergies Allergy Verified 05/05/17 18:43 Home Medications: Ambulatory Orders Acetaminophen [Tylenol] 650 mg PO DAILY 04/05/17 Amlodipine Besylate 10 mg PO DAILY 04/05/17 Ascorbate Calcium [Vitamin C] 500 mg PO BID 04/05/17 Cilostazol 100 mg PO BID 04/05/17 Docusate Sodium [Colace -] 100 mg PO HS 04/05/17 Escitalopram Oxalate [Lexapro -] 20 mg PO DAILY 04/05/17 Ferrous Sulfate 325 mg PO BID 04/05/17 Krill Oil/[place]-3/Dha/Epa [[place]-3 Krill Oil Softgel] 1 each PO DAILY 04/05/17 Metoprolol Succinate [Toprol XL -] 25 mg PO DAILY 04/05/17 Multivitamin [One Daily] 1 each PO DAILY 04/05/17 Olanzapine 7.5 mg PO DAILY 04/05/17 Perphenazine [Trilafon -] 0.5 mg PO DAILY 04/05/17 Petrolatum,White/Lanolin [Vitamin A & D Ointment] 454 gm TP BID 04/05/17 Ranitidine [Zantac -] 150 mg PO BID 04/05/17 Tamsulosin HCl [Flomax] 0.4 mg PO DAILY 04/05/17 Furosemide [Lasix -] 40 mg PO BID@0600,1400 tablet 04/25/17 Review of Systems - Review of Systems Able to Perform ROS?: No (Pt. currently altered) <Kari Mccormack - Last Filed: 05/05/17 19:20> *Physical Exam - Vital Signs Last Vital Signs Temp Pulse Resp BP Pulse Ox 32 L 18 118/45 99 05/05/17 16:56 05/05/17 16:56 05/05/17 16:56 05/05/17 16:56 <Devin King - Last Filed: 05/05/17 18:24> - Vital Signs Last Vital Signs Temp Pulse Resp BP Pulse Ox 32 L 18 118/45 99 05/05/17 16:56 05/05/17 16:56 05/05/17 16:56 05/05/17 16:56 - Physical Exam Comments: 05/05/17 19:15 GENERAL: Well developed, well nourished. Disoriented not alert to place or time, arousable to loud voice. Mild distress, cold to the touch HEENT: Normocephalic, atraumatic. PERRLA, EOMI. No conjunctival pallor. Sclera are non- icteric. Moist mucous membranes. Oropharynx is clear. NECK: Supple. Full ROM. No JVD. Carotid pulses 2+ and symmetric, without bruits. No thyromegaly. No lymphadenopathy. CARDIOVASCULAR: Bradycardic. Regular rate. No murmurs, rubs, or gallops. Distal pulses are 2+ and symmetric. PULMONARY: No evidence of respiratory distress. Lungs clear to auscultation bilaterally. No wheezing, rales or rhonchi. ABDOMINAL: Soft. Non-tender. Non-distended. No rebound or guarding. No organomegaly. Normoactive bowel sounds. MUSCULOSKELETAL Normal range of motion at all joints. No bony deformities or tenderness. No CVA tenderness. EXTREMITIES: No cyanosis. No clubbing. No edema. No calf tenderness. SKIN: 3cm linear shallow lac on the center forehead. Bleeding controlled. Warm and dry. Normal capillary refill. No rashes. No jaundice. NEUROLOGICAL: Unable to access given pt. mental status. Toes are down-going bilaterally. Gait is normal without ataxia. PSYCHIATRIC: Cooperative. Good eye contact. Appropriate mood and affect. <Kari Mccormack - Last Filed: 05/05/17 19:20> - Vital Signs Last Vital Signs Temp Pulse Resp BP Pulse Ox 91.6 F L 48 L 16 94/56 98 05/05/17 19:03 05/05/17 19:03 05/05/17 19:03 05/05/17 19:03 05/05/17 19:03 <Latoya Gandara - Last Filed: 05/05/17 20:48> ED Treatment Course - LABORATORY CBC & Chemistry Diagram: 05/05/17 17:20 05/05/17 17:20 <Devin King - Last Filed: 05/05/17 18:24> - LABORATORY CBC & Chemistry Diagram: 05/05/17 17:20 05/05/17 18:30 - RADIOLOGY Radiology Studies Ordered: Category Date Time Status HEAD CT WITHOUT CONTRAST [CT] Stat CT Scan 05/05/17 17:01 Ordered CHEST X-RAY PORTABLE* [RAD] Stat Radiology 05/05/17 17:01 Ordered <Kari Mccormack - Last Filed: 05/05/17 19:20> - LABORATORY CBC & Chemistry Diagram: 05/05/17 17:20 05/05/17 18:30 - ADDITIONAL ORDERS Additional order review: Laboratory Results 05/05/17 05/05/17 05/05/17 19:50 19:50 18:30 PT with INR INR PTT (Actin FS) VBG pH POC VBG pCO2 POC VBG pO2 Mixed VBG HCO3 Sodium Potassium Chloride Carbon Dioxide Anion Gap BUN Creatinine Creat Clearance w eGFR Random Glucose Lactic Acid 0.8 Calcium Phosphorus Magnesium Total Bilirubin AST ALT Alkaline Phosphatase Creatine Kinase Creatine Kinase Index CK-MB (CK-2) Troponin I B-Natriuretic Peptide Total Protein Albumin Urine Color Urine Appearance Urine pH Urine Protein Urine Glucose (UA) Urine Ketones Urine Blood Urine Nitrite Urine Bilirubin Urine Urobilinogen Stool Occult Blood Positive Blood Type B NEGATIVE Antibody Screen Negative Spec Expiration Date 05/05/17 05/05/17 05/05/17 18:30 18:30 18:30 PT with INR INR PTT (Actin FS) VBG pH POC VBG pCO2 POC VBG pO2 Mixed VBG HCO3 Sodium 144 Potassium 5.7 H Chloride 113 H Carbon Dioxide 22 Anion Gap 9 BUN 75 H D Creatinine 3.4 H D Creat Clearance w eGFR 17.22 Random Glucose 95 Lactic Acid 0.8 Calcium 8.0 L Phosphorus Magnesium Total Bilirubin < 0.1 L D AST 35 D ALT 59 D Alkaline Phosphatase 118 H Creatine Kinase 228 Creatine Kinase Index 3.7 CK-MB (CK-2) 8.606 H Troponin I < 0.02 D B-Natriuretic Peptide 557.54 H Total Protein 4.6 L Albumin 2.7 L Urine Color Urine Appearance Urine pH Urine Protein Urine Glucose (UA) Urine Ketones Urine Blood Urine Nitrite Urine Bilirubin Urine Urobilinogen Stool Occult Blood Blood Type Antibody Screen Spec Expiration Date 05/05/17 05/05/17 05/05/17 17:55 17:40 17:40 PT with INR INR PTT (Actin FS) VBG pH 7.27 L POC VBG pCO2 46.0 POC VBG pO2 40.9 Mixed VBG HCO3 20.6 Sodium Potassium Chloride Carbon Dioxide Anion Gap BUN Creatinine Creat Clearance w eGFR Random Glucose Lactic Acid 0.9 Calcium Phosphorus Magnesium Total Bilirubin AST ALT Alkaline Phosphatase Creatine Kinase Creatine Kinase Index CK-MB (CK-2) Troponin I B-Natriuretic Peptide Total Protein Albumin Urine Color Urine Appearance Urine pH Urine Protein Urine Glucose (UA) Urine Ketones Urine Blood Urine Nitrite Urine Bilirubin Urine Urobilinogen Stool Occult Blood Blood Type Cancelled Antibody Screen Cancelled Spec Expiration Date Cancelled 05/05/17 05/05/17 05/05/17 17:28 17:20 17:20 PT with INR INR PTT (Actin FS) 34.7 H VBG pH POC VBG pCO2 POC VBG pO2 Mixed VBG HCO3 Sodium Potassium Chloride Carbon Dioxide Anion Gap BUN Creatinine Creat Clearance w eGFR Random Glucose Lactic Acid Calcium Phosphorus Cancelled Magnesium Cancelled Total Bilirubin AST ALT Alkaline Phosphatase Creatine Kinase Creatine Kinase Index CK-MB (CK-2) Troponin I B-Natriuretic Peptide Total Protein Albumin Urine Color Ltyellow Urine Appearance Slcloudy Urine pH 5.0 D Urine Protein 2+ H Urine Glucose (UA) Negative Urine Ketones Negative Urine Blood 3+ H Urine Nitrite Negative Urine Bilirubin Negative Urine Urobilinogen Negative Stool Occult Blood Blood Type Antibody Screen Spec Expiration Date 05/05/17 05/05/17 05/05/17 17:20 17:20 17:20 PT with INR 10.80 INR 0.98 PTT (Actin FS) VBG pH POC VBG pCO2 POC VBG pO2 Mixed VBG HCO3 Sodium Cancelled Potassium Cancelled Chloride Cancelled Carbon Dioxide Cancelled Anion Gap Cancelled BUN Cancelled Creatinine Cancelled Creat Clearance w eGFR Cancelled Random Glucose Cancelled Lactic Acid Calcium Cancelled Phosphorus Magnesium Total Bilirubin Cancelled AST Cancelled ALT Cancelled Alkaline Phosphatase Cancelled Creatine Kinase Cancelled Creatine Kinase Index CK-MB (CK-2) Troponin I Cancelled B-Natriuretic Peptide Cancelled Total Protein Cancelled Albumin Cancelled Urine Color Urine Appearance Urine pH Urine Protein Urine Glucose (UA) Urine Ketones Urine Blood Urine Nitrite Urine Bilirubin Urine Urobilinogen Stool Occult Blood Blood Type Antibody Screen Spec Expiration Date 05/05/17 17:20 RBC 2.29 L D MCV 94.7 MCHC 32.8 RDW 18.9 H MPV 9.1 D Neutrophils % 83.0 H Lymphocytes % 4.8 L Monocytes % 8.1 Eosinophils % 3.6 Basophils % 0.5 - Medications Given in the ED: ED Medications Discontinued Medications Generic Name Dose Route Start Last Admin Trade Name Garret PRN Reason Stop Dose Admin Sodium Chloride 1,000 mls @ 1,000 mls/hr 05/05/17 17:41 05/05/17 17:30 Normal Saline - IV 05/05/17 18:40 1,000 mls/hr ASDIR STA Administration <Latoya Gandara - Last Filed: 05/05/17 20:48> Medical Decision Making - Medical Decision Making 05/05/17 18:[address] Montiel [facility] [phone]. Awaiting call back <Devin King - Last Filed: 05/05/17 18:24> - Medical Decision Making 05/05/17 18:22 Pt. is an 86 y/o male who presents to the ED with bradycardia, hypothermia and a head lac after falling from his wheel chair. Broad differential given presenting symptoms including, sepsis, electrolyte imbalance, ACS, CHF exacerbation, anemia. Head lac is small approximately 3cm clean and linear. 1. CBC, CMP, Cardiac profile, BNP, Lactic, blood cultures, VBG, UA, UC 2. IV fluids, [place] [place], CT head 3. Re-evaluate. 05/05/17 18:45 Nursing staff reports small runs of VTACH. Resolved on their own. Placed defib pads on the pt. as a precaution. CMP, Trop, Type and screen, BNP hemolized. Re- draw. 05/05/17 19:00 Sign out given to Latoya Gandara RECEIVER SETTER. Waiting on CT and labs. Pt. to be admitted after labs come back. <Kari Mccormack - Last Filed: 05/05/17 19:20> - Medical Decision Making 05/05/17 20:[address] Estrada who admits patient and would like Dr. Teixeira (Cardiology ) consulted. Spoke with Optometrist Assistant Denny who accepts patient to ICU. Patient currently Transcutaneous paced in 70's. <Latoya Gandara - Last Filed: 05/05/17 20:48> *DC/Admit/Observation/Transfer <Devin King - Last Filed: 05/05/17 18:24> <Kari Mccormack - Last Filed: 05/05/17 19:20> - Discharge Dispostion Admit: Yes <Latoya Gandara - Last Filed: 05/05/17 20:48> Diagnosis at time of Disposition: Bradycardia Injury of head Qualifiers: Encounter type: initial encounter Qualified Code(s): S09.90XA - Unspecified injury of head, initial encounter Anemia Qualifiers: Anemia type: unspecified type Qualified Code(s): D64.9 - Anemia, unspecified - Discharge Dispostion Condition at time of disposition: Critical
[2017-05-05 17:39] LABS: URINE APPEARANCE SLCLOUDY; URINE BILIRUBIN NEGATIVE (NEGATIVE); URINE BLOOD 3+ (NEGATIVE); URINE COLOR LTYELLOW; URINE GLUCOSE (UA) NEGATIVE (NEGATIVE); URINE KETONE NEGATIVE (NEGATIVE); URINE NITRITE NEGATIVE (NEGATIVE); URINE UROBILINOGEN NEGATIVE mg/dL (0.2-1.0)
[2017-05-05 17:41] LABS: BASOPHIL 0.5 % (0-2.0); EOSINOPHIL 3.6 % (0-4.5); MCH 31.1 pg (25.7-33.7); MCHC 32.8 g/dl (32.0-35.9); MEAN CELL VOLUME 94.7 fl (80-96); MEAN PLT VOLUME 9.1 fl (7.5-11.1); PLATELET COUNT 153 K/MM3 (134-434); RDW 18.9 % (11.9-15.9); WHITE BLOOD COUNT 4.9 K/mm3 (4.0-10.0)
[2017-05-05] MEDS ORDERED: SODIUM CHLORIDE 1,000 ML IV STA (17:41)
[2017-05-05 17:46] LABS: URINE LEUK ESTERASE 1+ (NEGATIVE); URINE PROTEIN 2+ (NEGATIVE)
[2017-05-05 17:53] LABS: INR 0.98 (0.82-1.09); PROTHROMBIN TIME (PATIENT) 10.8 SEC (9.98-11.88)
[2017-05-05 18:03] LABS: VENOUS BLOOD GAS HCO3 20.6 meq/L (19-25)
[2017-05-05 18:05] LABS: VENOUS PH 7.27 (7.32-7.42)
[2017-05-05 19:06] LABS: TROPONIN I < 0.02 ng/ml (0.00-0.05)
[2017-05-05 19:10] LABS: CPK 228 IU/L (39-308)
[2017-05-05 19:12] LABS: ALBUMIN 2.7 g/dl (3.4-5.0); ANION GAP 9 (8-16); CO2 22 mmol/L (21-32); CREATININE 3.4 mg/dL (0.7-1.3); GLUCOSE,RANDOM 95 mg/dL (74-106); SGOT/AST 35 U/L (15-37); SGPT/ALT 59 U/L (12-78); TOT PROT 4.6 g/dl (6.4-8.2)
[2017-05-05 19:14] LABS: ALK PHOS 118 U/L (45-117)
[2017-05-05 19:17] LABS: BILIRUBIN,TOTAL < 0.1 mg/dL (0.2-1.0)
[2017-05-05] MEDS ORDERED: GLUCAGON 1 MG KIT IVPUSH ONE (21:11)
[2017-05-05] MEDS ORDERED: GlUCAGON HUMAN RECOMBINANT 1 MG/VIAL ONE (21:34)
--- NOTE | 2017-05-05 22:48 | CONSULT ---
Consult Consult Specialty:: PULM / CCM Referred by:: Dr. Tierra Hill Reason for Consultation:: Bradycardia - History of Present Illness Chief Complaint: Symptomatic bradycardia History of Present Illness: Mr. Reynoso is an 86 y/o man ([facility]), w/ HTN, CHF, CAD, JAQUELINE, schizophrenia, & depression BIBA for eval 2/2 fall out of W/C. A/p EMS the patient fell out of his w/c @ [facility] [place] the [place]. The fall was unwitnessed. The patient hit his head & presents w/ a minor head lack --> forhead. In ED pt notable for a rectal temp @ 91.5F, and a pulse of 35 w/ SBP in the 90's. NCHCT: Negative. Pt given glucagon (On lopressor) & Started on TCP. Pt admitted now to the ICU for symptomatic Jony m/l 2/ BB toxiciy. 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 duo bx neg) - Alcohol/Substance Use Hx Alcohol Use: No - Smoking History Smoking history: Unknown if ever smoked Have you smoked in the past 12 months: No Aproximately how many cigarettes per day: 15 If you are a former smoker, when did you quit?: does not remember - Social History Usual Living Arrangement: Alone ADL: Support Services History of Recent Travel: No Home Medications - Allergies Allergies/Adverse Reactions: Allergies Allergy/AdvReac Type Severity Reaction Status Date / Time No Known Drug Allergies Allergy Verified 05/05/17 18:43 - Home Medications Home Medications: Ambulatory Orders Acetaminophen [Tylenol] 650 mg PO DAILY 04/05/17 Amlodipine Besylate 10 mg PO DAILY 04/05/17 Ascorbate Calcium [Vitamin C] 500 mg PO BID 04/05/17 Cilostazol 100 mg PO BID 04/05/17 Docusate Sodium [Colace -] 100 mg PO HS 04/05/17 Escitalopram Oxalate [Lexapro -] 20 mg PO DAILY 04/05/17 Ferrous Sulfate 325 mg PO BID 04/05/17 Krill Oil/[place]-3/Dha/Epa [[place]-3 Krill Oil Softgel] 1 each PO DAILY 04/05/17 Metoprolol Succinate [Toprol XL -] 25 mg PO DAILY 04/05/17 Multivitamin [One Daily] 1 each PO DAILY 04/05/17 Olanzapine 7.5 mg PO DAILY 04/05/17 Perphenazine [Trilafon -] 0.5 mg PO DAILY 04/05/17 Petrolatum,White/Lanolin [Vitamin A & D Ointment] 454 gm TP BID 04/05/17 Ranitidine [Zantac -] 150 mg PO BID 04/05/17 Tamsulosin HCl [Flomax] 0.4 mg PO DAILY 04/05/17 Furosemide [Lasix -] 40 mg PO BID@0600,1400 tablet 04/25/17 Family Disease History - Family Disease History Family History: Unable to Obtain (Pt is completely dmented.) Review of Systems Unable to obtain ROS, reason: Pt is completely demented Physical Exam Vital Signs: Vital Signs Temperature 97.4 F L 05/05/17 21:49 Pulse Rate 71 05/05/17 21:49 Respiratory Rate 16 05/05/17 21:49 Blood Pressure 136/63 05/05/17 21:49 O2 Sat by Pulse Oximetry (%) 100 05/05/17 21:49 Constitutional: Yes: Well Nourished, No Distress, Calm Eyes: Yes: WNL, Conjunctiva Clear, EOM Intact HENT: Yes: WNL, Normocephalic, Other (2cm Lack --> Forehead, bandaged, no bleeding.) Neck: Yes: WNL, Supple, Trachea Midline Cardiovascular: Yes: Bradycardia Respiratory: Yes: WNL, Regular, CTA Bilaterally Gastrointestinal: Yes: WNL, Normal Bowel Sounds, Soft, Abdomen, Obese ...Rectal Exam: Yes: Deferred Renal/: Yes: WNL Breast(s): Yes: WNL Musculoskeletal: Yes: WNL Extremities: Yes: Erythema, Other (R LE w/ venous statsi ulcer.) Edema: Yes Edema: LUE: 2+, RUE: 2+, LLE: 3+, RLE: 3+ Peripheral Pulses WNL: Yes Integumentary: Yes: Erythema (R LE) Neurological: Yes: WNL ...Motor Strength: WNL Psychiatric: Yes: WNL Labs: CBC, BMP 05/05/17 17:20 05/05/17 18:30 Troponin, BNP 05/05/17 05/05/17 05/05/17 17:20 17:20 18:30 Troponin I Cancelled B-Natriuretic Peptide Cancelled 557.54 H 05/05/17 18:30 Troponin I < 0.02 D B-Natriuretic Peptide INR, PTT INR 0.98 (0.82-1.09) 05/05/17 17:20 Imaging - Results Chest X-ray: Image Reviewed (05/05: Clear (My Read)) Cat Scan: Report Reviewed ([facility] 05/05: NEGATIVE) EKG: Image Reviewed (05/05: S-Jony in the 40's w/o ectopy, R axis Deviation, no ST or T-wave aberration, QTc = 435ms. No sign of infarction or ischemia (My Read ).) Problem List - Problems (1) Bradycardia Code(s): R00.1 - BRADYCARDIA, UNSPECIFIED (2) HTN (hypertension) Code(s): I10 - ESSENTIAL (PRIMARY) HYPERTENSION (3) Head injury Code(s): S09.90XA - UNSPECIFIED INJURY OF HEAD, INITIAL ENCOUNTER Qualifiers: Encounter type: initial encounter Qualified Code(s): S09.90XA - Unspecified injury of head, initial encounter (4) Dementia Code(s): F03.90 - UNSPECIFIED DEMENTIA WITHOUT BEHAVIORAL DISTURBANCE (5) Schizo-affective schizophrenia, chronic condition Code(s): F25.8 - OTHER SCHIZOAFFECTIVE DISORDERS (6) CHF (congestive heart failure) Code(s): I50.9 - HEART FAILURE, UNSPECIFIED (7) CAD (coronary artery disease) Code(s): I25.10 - ATHSCL HEART DISEASE OF [place] CORONARY ARTERY W/O ANG PCTRS Assessment/Plan ASSESS: This is an 86 y/o man w/ HTN, CHF, CAD, JAQUELINE, schizo, & depression who presents now w/ bradycardia, hypothermia, & a head lac after w/c auto-eject in the [place] [place]. The head lac is Minor, NCHCT is negative, the bradycardia is c/f being is symptomatic given possible relative hypotension. The hypothermia is c/f SIRS. PLAN: -FiO2 for an SpO2 > 92% -HOB > 30 -Hold all anti-HTN meds (BB & CCB) -D/c TC pacing (HR has markedly improved w/ glucagon) -Atropine & Dopa gtt @ the bedside -Daily weights (CHF) -Trend LA -Check TFTs for hypothroid -TTE (HF) -CARDS -Singh Clxr (R/o SIRS/Sepsis) -Strict I's & O's -Trend BUN/Cr -Trend UOP -Replete e-lytes prn -Can cont Lexapro (Depress) -Can cont Olanzapine (Schizo) -Cont Trilafon (Schizo) -Cont Tamsulosin (BPH) -Once hemodynamically stable begin gentle diuresis (Pt is grossly V/O) (CHF) -Cardiac Diet -bacitracin & cover R LE wound -Cont Cilostazol (LE perfuion) -[facility] consult -BR -SQH -PPI -I spoke w/ José Luis Tong (Niece). Ms. Tong states that they have had a family discussion [Her & her mother (Pt's sister)] RE: [facility] for Mr. Reynoso. Pt is absolutely 100% a DNR. She will notify Jaime Carver Esq. (Family defense attorney & Official Guardian). -I AM ORDERING A DNR NOW. -Once Bradycardia has resolved Transfer pt to Tele for continued management. Thank you for this interesting consult Jaswant Reddy, [facility] CENTERMargaret-[facility] [id number] PULM / CCM Critical Care Time/MDM Note Total Critical Care Time: 39 Critical Care Statement: The care of this patient involved high complexity decision making to prevent further life threatening deterioration of the patient 's condition and/or to evaluate & treat vital organ system(s) failure or risk of failure.
[2017-05-05] MEDS ORDERED: DOCUSATE SODIUM 100 MG CAPSULE (FP) PO PRN (23:00)
[2017-05-05 23:35] VITALS: BMI 26.6
[2017-05-06] MEDS: DOPAMINE 400 MG/D5W - 250 ML IVPB SCH ×2 (05:30→22:22)
[2017-05-06] MEDS ORDERED: ATROPINE SULFATE 1 MG/10 ML DISP.SYRIN IVPUSH ONE (05:57)
[2017-05-06 06:09] LABS: MCH 31.4 pg (25.7-33.7); MCHC 33.6 g/dl (32.0-35.9); MEAN CELL VOLUME 93.3 fl (80-96); MEAN PLT VOLUME 9.2 fl (7.5-11.1); PLATELET COUNT 175 K/MM3 (134-434); RDW 18.7 % (11.9-15.9); WHITE BLOOD COUNT 5.3 K/mm3 (4.0-10.0)
[2017-05-06 06:11] LABS: INR 1.03 (0.82-1.09); PROTHROMBIN TIME (PATIENT) 11.3 SEC (9.98-11.88)
[2017-05-06 06:23] LABS: ANION GAP 8 (8-16); CALCIUM 8.4 mg/dL (8.5-10.1); CO2 21 mmol/L (21-32); CREATININE 3.3 mg/dL (0.7-1.3); GLUCOSE,RANDOM 78 mg/dL (74-106); MAGNESIUM 2.4 mg/dL (1.8-2.4); PHOSPHOROUS 6.4 mg/dL (2.5-4.9)
[2017-05-06] MEDS: HEPARIN NA (PORCINE) 5,000 UNITS/ML 1ML VIAL SQ SCH ×3 (06:58→22:20)
--- NOTE | 2017-05-06 08:39 | EKG ---
Test Reason : Blood Pressure : / mmHG Vent. Rate : 051 BPM Atrial Rate : 051 BPM P-R Int : 204 ms QRS Dur : 118 ms QT Int : 516 ms P-R-T Axes : 032 205 032 degrees QTc Int : 475 ms SINUS BRADYCARDIA WITH SINUS ARRHYTHMIA RIGHT SUPERIOR AXIS DEVIATION NON-SPECIFIC INTRA-VENTRICULAR CONDUCTION DELAY ABNORMAL ECG Confirmed by MD JELANI, SALOME ([id number]) on 05/06/2017 8:38:50 AM Referred By: Confirmed By:SALOME PALOMARES MD
--- NOTE | 2017-05-06 09:41 | PN ---
Progress Note (short form) - Note Progress Note: PULMONARY/CCM Pt seen and examined in the ICU. No further bradycardia on dopamine gtt. Somnolent but arousable, confused. Last Vital Signs Temp Pulse Resp BP Pulse Ox 97.2 F L 76 18 108/58 100 05/06/17 02:00 05/06/17 08:00 05/06/17 08:00 05/06/17 08:00 05/06/17 07:49 Intake & Output 05/03/17 05/04/17 05/05/17 05/06/17 23:59 23:59 23:59 23:59 Weight 180 lb 12.465 oz Gen: NAD at rest Heart: RRR Lung: decreased breath sounds at the bases Abd: soft, nontender Ext: + edema CBC, BMP 05/06/17 05:15 Active Medications Docusate Sodium (Colace -) 100 mg PO Q8H PRN PRN Reason: CONSTIPATION Heparin Sodium (Porcine) (Heparin -) 5,000 unit SQ TID CINTHYA Last Admin: 05/06/17 06:58 Dose: 5,000 unit Dopamine HCl/Dextrose (Dopamine 400 Mg/D5w -) 250 mls @ 14.884 mls/hr IVPB TITR CINTHYA; 5 MCG/KG/MIN PRN Reason: Protocol Last Admin: 05/06/17 05:30 Dose: 8.93 mls/hr Famotidine/Sodium Chloride (Pepcid 20 Mg Premixed Ivpb -) 50 mls @ 100 mls/hr IVPB BID CINTHYA Pneumococcal 13-Valent Conj Vacc (Prevnar 13 Syringe -) 0.5 ml IM .ONCE ONE Stop: 05/06/17 10:01 A/P Bradycardia Hypothermia Acute on Chronic Renal Failure Anemia CAD LV Systolic Dysfunction Pulmonary HTN Aortic Stenosis HTN Schizophrenia Depression - continue dopamine gtt - can taper off after cardiology evaluation - send TFTs, cortisol level - f/u pending cultures - hold all rate controlling agents - transfuse if Hgb <7 - monitor H/H - monitor urine output, creatinine - aspiration precautions - DVT prophylaxis - can monitor on telemetry if heart rates stable off dopamine gtt
[2017-05-06] MEDS ORDERED: PNEUMOC 13-VAL CONJ-DIP CRM/PF 0.5 ML DISP.SYRIN IM ONE (10:00)
[2017-05-06] MEDS: FAMOTIDINE 20 MG/50 ML IVPB 50 ML IVPB SCH ×2 (10:15→22:20)
[2017-05-06 10:48] LABS: MEAN PLT VOLUME 9.1 fl (7.5-11.1); PLATELET COUNT 168 K/MM3 (134-434); WHITE BLOOD COUNT 8.1 K/mm3 (4.0-10.0)
[2017-05-06 11:00] LABS: FREE T4 1.04 ng/dl (0.76-1.16); THYROID STIMULATING HORMONE 7.99 uIU/ml (0.358-3.74)
--- NOTE | 2017-05-06 11:36 | HP ---
Admitting History and Physical - Admission History of Present Illness: 86 y/o man ([facility] Resident), w/ HTN, CHF, CAD, JAQUELINE, schizophrenia, & depression BIBA for eval 2/2 fall out of W/C. A/p EMS the patient fell out of his w/c @ [facility] skilled nursing in the dining alberto. The fall was unwitnessed. The patient hit his head & presents w/ a minor head lack --> forhead. In ED pt notable for a rectal temp @ 91.5F, and a pulse of 35 w/ SBP in the 90's. NCHCT: Negative. Pt given glucagon (On lopressor) & Started on TCP. Pt admitted now to the ICU for symptomatic Jony m/l 2/2 BB toxiciy. 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 duo bx neg) - Advance Directives Advance Directives: Yes: Health Care Proxy - Smoking History Smoking history: Unknown if ever smoked Have you smoked in the past 12 months: No Aproximately how many cigarettes per day: 15 If you are a former smoker, when did you quit?: does not remember - Alcohol/Substance Use Hx Alcohol Use: No - Social History ADL: Support Services History of Recent Travel: No Home Medications - Allergies Allergies/Adverse Reactions: Allergies Allergy/AdvReac Type Severity Reaction Status Date / Time No Known Drug Allergies Allergy Verified 05/05/17 18:43 - Home Medications Home Medications: Ambulatory Orders Acetaminophen [Tylenol] 650 mg PO DAILY 04/05/17 Amlodipine Besylate 10 mg PO DAILY 04/05/17 Ascorbate Calcium [Vitamin C] 500 mg PO BID 04/05/17 Cilostazol 100 mg PO BID 04/05/17 Docusate Sodium [Colace -] 100 mg PO HS 04/05/17 Escitalopram Oxalate [Lexapro -] 20 mg PO DAILY 04/05/17 Ferrous Sulfate 325 mg PO BID 04/05/17 Krill Oil/[place]-3/Dha/Epa [[place]-3 Krill Oil Softgel] 1 each PO DAILY 04/05/17 Metoprolol Succinate [Toprol XL -] 25 mg PO DAILY 04/05/17 Multivitamin [One Daily] 1 each PO DAILY 04/05/17 Olanzapine 7.5 mg PO DAILY 04/05/17 Perphenazine [Trilafon -] 0.5 mg PO DAILY 04/05/17 Petrolatum,White/Lanolin [Vitamin A & D Ointment] 454 gm TP BID 04/05/17 Ranitidine [Zantac -] 150 mg PO BID 04/05/17 Tamsulosin HCl [Flomax] 0.4 mg PO DAILY 04/05/17 Furosemide [Lasix -] 40 mg PO BID@0600,1400 tablet 04/25/17 Physical Examination Vital Signs: Vital Signs Temperature 97.2 F L 05/06/17 02:00 Pulse Rate 87 05/06/17 10:37 Respiratory Rate 18 05/06/17 10:37 Blood Pressure 120/78 05/06/17 10:37 O2 Sat by Pulse Oximetry (%) 100 05/06/17 07:49 Cardiovascular: Yes: Pulse Irregular, S1, S2 Respiratory: Yes: Regular, CTA Bilaterally Gastrointestinal: Yes: Normal Bowel Sounds, Soft Neurological: Yes: Alert, Confusion Labs: CBC, BMP 05/06/17 07:30 05/06/17 05:15 Problem List - Problems (1) Bradycardia Assessment/Plan: ICU MONITORING MAY NEED PACEMAKER OFF LOPRESSOR Code(s): R00.1 - BRADYCARDIA, UNSPECIFIED (2) Dementia Code(s): F03.90 - UNSPECIFIED DEMENTIA WITHOUT BEHAVIORAL DISTURBANCE (3) Head injury Assessment/Plan: CT OF HEAD NOTED REPEAT Code(s): S09.90XA - UNSPECIFIED INJURY OF HEAD, INITIAL ENCOUNTER Qualifiers: Encounter type: initial encounter Qualified Code(s): S09.90XA - Unspecified injury of head, initial encounter (4) HTN (hypertension) Assessment/Plan: CONTROLLED Selected Entries 05/06/17 05/06/17 05/06/17 06:00 08:00 10:37 Blood Pressure 121/56 108/58 120/78 Code(s): I10 - ESSENTIAL (PRIMARY) HYPERTENSION (5) Anemia Assessment/Plan: W/U ORDERED PRBC Code(s): D64.9 - ANEMIA, UNSPECIFIED Qualifiers: Anemia type: unspecified type Qualified Code(s): D64.9 - Anemia, unspecified
--- NOTE | 2017-05-06 12:33 | CON.CARD ---
Consult Consult Specialty:: Cardiology Referred by:: Dr Estrada Reason for Consultation:: Bradycardia - History of Present Illness Chief Complaint: fall History of Present Illness: 86 y/o man NHR, HTN, CHF, CAD, JAQUELINE, schizophrenia, & depression admitted with fall out of wheelchair. The patient hit his head & presents w/ a minor head laceration. He cannot give a history. In ED pt notable for a rectal temp @ 91.5F, and a pulse of 35 w/ SBP in the 90's. NCHCT: Negative. Pt given glucagon (On lopressor) & Started on TCP now on low dose dopamine in ICU. Was getting BB at the [place], had 4.3 second pause this morning 5am. The patient is non or minimally ambulatory. 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 duo bx neg) - Alcohol/Substance Use Hx Alcohol Use: No - Smoking History Smoking history: Unknown if ever smoked Have you smoked in the past 12 months: No Aproximately how many cigarettes per day: 15 If you are a former smoker, when did you quit?: does not remember - Social History Usual Living Arrangement: Alone ADL: Support Services History of Recent Travel: No Home Medications - Allergies Allergies/Adverse Reactions: Allergies Allergy/AdvReac Type Severity Reaction Status Date / Time No Known Drug Allergies Allergy Verified 05/05/17 18:43 - Home Medications Home Medications: Ambulatory Orders Acetaminophen [Tylenol] 650 mg PO DAILY 04/05/17 Amlodipine Besylate 10 mg PO DAILY 04/05/17 Ascorbate Calcium [Vitamin C] 500 mg PO BID 04/05/17 Cilostazol 100 mg PO BID 04/05/17 Docusate Sodium [Colace -] 100 mg PO HS 04/05/17 Escitalopram Oxalate [Lexapro -] 20 mg PO DAILY 04/05/17 Ferrous Sulfate 325 mg PO BID 04/05/17 Krill Oil/[place]-3/Dha/Epa [[place]-3 Krill Oil Softgel] 1 each PO DAILY 04/05/17 Metoprolol Succinate [Toprol XL -] 25 mg PO DAILY 04/05/17 Multivitamin [One Daily] 1 each PO DAILY 04/05/17 Olanzapine 7.5 mg PO DAILY 04/05/17 Perphenazine [Trilafon -] 0.5 mg PO DAILY 04/05/17 Petrolatum,White/Lanolin [Vitamin A & D Ointment] 454 gm TP BID 04/05/17 Ranitidine [Zantac -] 150 mg PO BID 04/05/17 Tamsulosin HCl [Flomax] 0.4 mg PO DAILY 04/05/17 Furosemide [Lasix -] 40 mg PO BID@0600,1400 tablet 04/25/17 Review of Systems Unable to obtain ROS, reason: dementia Vital Signs: Vital Signs Temperature 97.2 F L 05/06/17 02:00 Pulse Rate 87 05/06/17 10:37 Respiratory Rate 18 05/06/17 10:37 Blood Pressure 120/78 05/06/17 10:37 O2 Sat by Pulse Oximetry (%) 100 05/06/17 07:49 Constitutional: Yes: No Distress, Calm Eyes: Yes: Conjunctiva Clear, EOM Intact HENT: Yes: Normocephalic Neck: Yes: Supple, Trachea Midline Respiratory: Yes: CTA Bilaterally Gastrointestinal: Yes: Normal Bowel Sounds Cardiovascular: Yes: Bradycardia, Pulse Irregular JVD: No Carotid Bruit: No PMI: Non-Displaced Heart Sounds: Yes: S1, S2 Murmur: Yes: Systolic Murmur, Grade 2 Extremities: Yes: Other (contracted.) Edema: No Peripheral Pulses WNL: Yes - Other Data Labs, Other Data: CBC, BMP 05/06/17 07:30 05/06/17 05:15 INR, PTT INR 1.03 (0.82-1.09) 05/06/17 05:15 Troponin, BNP 05/06/17 05/06/17 05:15 05:15 Troponin I < 0.02 B-Natriuretic Peptide 643.99 H Troponin, BNP 05/06/17 05/06/17 05:15 05:15 Troponin I < 0.02 B-Natriuretic Peptide 643.99 H Imaging - Results EKG: Pending (sbrady, IVCD RAD.) Problem List - Problems (1) Bradycardia Assessment/Plan: Most likely due to hypothermia and beta blockers, sinus node dysfunction. continue low dose dopamine at this point. would not place TPM. Echo hold all SA and AV micha active agents. follow telemetry. Severe anemia, would transfuse to HB of 8-10. renal function is worsening, would get sonogram and renal evaluation. Code(s): R00.1 - BRADYCARDIA, UNSPECIFIED
[2017-05-06 15:44] LABS: FERRITIN 150.001 ng/ml (16.4-293.9)
[2017-05-06] MEDS ORDERED: FLU VACCINE QUAD 60 MCG/0.5 ML (MDV 17-18) IM ONE (16:08)
[2017-05-07] MEDS: HEPARIN NA (PORCINE) 5,000 UNITS/ML 1ML VIAL SQ SCH ×3 (05:13→23:10)
[2017-05-07 06:06] LABS: BASOPHIL 0.6 % (0-2.0); MCH 31.4 pg (25.7-33.7); MCHC 33.6 g/dl (32.0-35.9); MEAN CELL VOLUME 93.3 fl (80-96); MEAN PLT VOLUME 8.7 fl (7.5-11.1); NEUTROPHILS 86.5 % (42.8-82.8); PLATELET COUNT 191 K/MM3 (134-434); RDW 18.2 % (11.9-15.9); WHITE BLOOD COUNT 7.1 K/mm3 (4.0-10.0)
[2017-05-07 06:41] LABS: ALBUMIN 2.8 g/dl (3.4-5.0); ANION GAP 11 (8-16); CALCIUM 8.4 mg/dL (8.5-10.1); CO2 20 mmol/L (21-32); GLUCOSE,RANDOM 85 mg/dL (74-106); MAGNESIUM 2.5 mg/dL (1.8-2.4)
[2017-05-07 06:44] LABS: ALK PHOS 169 U/L (45-117); BILIRUBIN,TOTAL 0.6 mg/dL (0.2-1.0); CREATININE 3.3 mg/dL (0.7-1.3); PHOSPHOROUS 5.9 mg/dL (2.5-4.9); SGOT/AST 45 U/L (15-37); SGPT/ALT 91 U/L (12-78); TOT PROT 5.2 g/dl (6.4-8.2)
[2017-05-07] MEDS: FAMOTIDINE 20 MG/50 ML IVPB 50 ML IVPB SCH ×2 (09:58→23:11)
[2017-05-07] MEDS ORDERED: FUROSEMIDE 40 MG/4 ML INJECTABLE VIAL IVPUSH ONE (12:22)
[2017-05-07] MEDS ORDERED: SODIUM POLYSTYRENE SULFONATE 15 GM/60 ML BOTTLE PO ONE (12:23)
--- NOTE | 2017-05-07 13:03 | PN ---
Teaching Attending Note Name of Resident: Sylvester Beaz ATTENDING PHYSICIAN STATEMENT I saw and evaluated the patient. I reviewed the resident's note and discussed the case with the resident. I agree with the resident's findings and plan as documented. SUBJECTIVE: Pt seen and examined in the ICU. Remains confused on dopamine gtt. No further bradycardia but with sinus pauses overnight. OBJECTIVE: Last Vital Signs Temp Pulse Resp BP Pulse Ox 98.1 F 104 H 19 149/75 92 L 05/07/17 06:00 05/07/17 10:47 05/07/17 06:00 05/07/17 06:00 05/07/17 10:47 Intake & Output 05/04/17 05/05/17 05/06/17 05/07/17 23:59 23:59 23:59 23:59 Intake Total 550 156.8 Balance 550 156.8 Weight 180 lb 12.465 oz 185 lb 14.4 oz Gen: NAD at rest Heart: tachycardic, regular Lung: decreased breath sounds at the bases Abd: soft, nontender Ext: no edema CBC, BMP 05/07/17 05:00 05/07/17 05:00 Active Medications Docusate Sodium (Colace -) 100 mg PO Q8H PRN PRN Reason: CONSTIPATION Heparin Sodium (Porcine) (Heparin -) 5,000 unit SQ TID CINTHYA Last Admin: 05/07/17 05:13 Dose: 5,000 unit Dopamine HCl/Dextrose (Dopamine 400 Mg/D5w -) 250 mls @ 14.884 mls/hr IVPB TITR CINTHYA; 5 MCG/KG/MIN PRN Reason: Protocol Last Admin: 05/06/17 22:22 Dose: 8.93 mls/hr Famotidine/Sodium Chloride (Pepcid 20 Mg Premixed Ivpb -) 50 mls @ 100 mls/hr IVPB BID CINTHYA Last Admin: 05/07/17 09:58 Dose: 100 mls/hr ASSESSMENT AND PLAN: Bradycardia improved Hypothermia resolved Acute on Chronic Renal Failure Anemia CAD LV Systolic Dysfunction Pulmonary HTN Aortic Stenosis HTN Schizophrenia Depression - continue dopamine gtt per cardiology - send TFTs, cortisol level - f/u pending cultures - hold all rate controlling agents - transfuse if Hgb <7 - monitor H/H - monitor urine output, creatinine - PO as tolerated - aspiration precautions - DVT prophylaxis - can monitor on telemetry if heart rates stable off dopamine gtt
--- NOTE | 2017-05-07 14:58 | PN ---
Progress Note, Physician - Current Medication List Current Medications: Active Medications Docusate Sodium (Colace -) 100 mg PO Q8H PRN PRN Reason: CONSTIPATION Heparin Sodium (Porcine) (Heparin -) 5,000 unit SQ TID CINTHYA Last Admin: 05/07/17 13:19 Dose: 5,000 unit Dopamine HCl/Dextrose (Dopamine 400 Mg/D5w -) 250 mls @ 14.884 mls/hr IVPB TITR CINTHYA; 5 MCG/KG/MIN PRN Reason: Protocol Last Admin: 05/06/17 22:22 Dose: 8.93 mls/hr Famotidine/Sodium Chloride (Pepcid 20 Mg Premixed Ivpb -) 50 mls @ 100 mls/hr IVPB BID CINTHYA Last Admin: 05/07/17 09:58 Dose: 100 mls/hr - Objective Vital Signs: Vital Signs Temperature 36.7 C 05/07/17 06:00 Pulse Rate 64 05/07/17 12:00 Respiratory Rate 17 05/07/17 12:00 Blood Pressure 145/74 05/07/17 12:00 O2 Sat by Pulse Oximetry (%) 92 L 05/07/17 10:47 Labs: CBC, BMP 05/07/17 05:00 05/07/17 05:00 INR, PTT INR 1.03 (0.82-1.09) 05/06/17 05:15
--- NOTE | 2017-05-07 15:11 | PN ---
Physical Exam: SUBJECTIVE: 86 yo M with h/o CHF, HTN, dementia, and schitzophrenia who presented to ED following fall from wheelchair. Hit his head and presented to ED with head laceration. Wa shypothermic in Ed with rectal temp of 91.5, pulse of 35 , and SBP of 90's. Given glucagon for suspected beta hasmukh toxicity and started on transcutaneous pacing. Admitted to ED for symtpomatic bradycardia. No acute events this AM. OBJECTIVE: Vital Signs Period Temp Pulse Resp BP Sys/Jeronimo Pulse Ox Last 24 Hr 97.5 F-98.1 F 42-104 15-19 118-151/52-77 92-100 GENERAL: The patient is awake, alert, confused. in no acute distress. HEAD: Normal with no signs of trauma. EYES: PERRL, extraocular movements intact, sclera anicteric, conjunctiva clear. No ptosis. ENT: Ears normal, nares patent, oropharynx clear without exudates, moist mucous membranes. NECK: Trachea midline, full range of motion, supple. LUNGS: Breath sounds equal, clear to auscultation bilaterally, no wheezes, no crackles, no accessory muscle use. HEART: Regular rate and rhythm, S1, S2 without murmur, rub or gallop. ABDOMEN: Soft, nontender, nondistended, normoactive bowel sounds, no guarding, no rebound, no hepatosplenomegaly, no masses. EXTREMITIES: 2+ pulses, warm, well-perfused, no edema. NEUROLOGICAL: Cranial nerves II through XII grossly intact. Normal speech, gait not observed. PSYCH: Normal mood, normal affect. SKIN: Warm, dry, normal turgor, no rashes or lesions noted Laboratory Results - last 24 hr 05/06/17 05/06/17 05/06/17 10:20 14:40 14:40 WBC RBC Hgb Hct MCV MCH MCHC RDW Plt Count MPV Neutrophils % Lymphocytes % Monocytes % Eosinophils % Basophils % Sodium Potassium Chloride Carbon Dioxide Anion Gap BUN Creatinine Creat Clearance w eGFR Random Glucose Calcium Phosphorus Magnesium Ferritin 150.001 Total Bilirubin AST ALT Alkaline Phosphatase Total Protein Albumin Vitamin B12 1578 H D Cancelled Cortisol AM Sample 19.6 05/07/17 05/07/17 05:00 05:00 WBC 7.1 RBC 2.75 L Hgb 8.6 L D Hct 25.6 L D MCV 93.3 MCH 31.4 MCHC 33.6 RDW 18.2 H Plt Count 191 MPV 8.7 Neutrophils % 86.5 H Lymphocytes % 4.5 L Monocytes % 7.4 Eosinophils % 1.0 Basophils % 0.6 Sodium 148 H Potassium 5.4 H Chloride 117 H Carbon Dioxide 20 L Anion Gap 11 BUN 76 H Creatinine 3.3 H Creat Clearance w eGFR 17.82 Random Glucose 85 Calcium 8.4 L Phosphorus 5.9 H Magnesium 2.5 H Ferritin Total Bilirubin 0.6 D AST 45 H D ALT 91 H D Alkaline Phosphatase 169 H D Total Protein 5.2 L Albumin 2.8 L Vitamin B12 Cortisol AM Sample Active Medications Generic Name Dose Route Start Last Admin Trade Name Freq PRN Reason Stop Dose Admin Docusate Sodium 100 mg 05/05/17 23:00 Colace - PO Q8H PRN CONSTIPATION Heparin Sodium (Porcine) 5,000 unit 05/06/17 06:00 05/07/17 13:19 Heparin - SQ 5,000 unit TID CINTHYA Administration Dopamine HCl/Dextrose 250 mls @ 14.884 mls/hr 05/05/17 23:00 05/06/17 22:22 Dopamine 400 Mg/D5w - IVPB 8.93 mls/hr TITR CINTHYA Administration Protocol 5 MCG/KG/MIN Famotidine/Sodium Chloride 50 mls @ 100 mls/hr 05/06/17 10:00 05/07/17 09:58 Pepcid 20 Mg Premixed Ivpb - IVPB 100 mls/hr BID CINTHYA Administration ASSESSMENT/PLAN: 86 yo M with h/o CHF, HTN, dementia, and schitzophrenia who presented to ED following fall from wheelchair. Hit his head and presented to ED with head laceration. [place] shypothermic in Ed with rectal temp of 91.5, pulse of 35 , and SBP of 90's. Given glucagon for suspected beta hasmukh toxicity and started on transcutaneous pacing. Admitted to ED for symtpomatic bradycardia. Cardiac: H/o LV systolic HF Holding rate controlling drugs Continue dopamine ppt per cardiology Hypotension resolved Bradycardia improved (05/07) Hold BB Lasix 60 mg IV Per cardiology cont dopamine ppt. Pt will need pacemaker placemnt by Dr. Teo Dooley for unstable HR and 3:1 AV block Anemia: Monitor H/H FEN: Replace lytes PRN, Diet per prison orders. Pt free water PO, kaexylate ( K +5.4 ) Visit type - Emergency Visit Emergency Visit: Yes ED Registration Date: 05/05/17 Care time: The patient presented to the Emergency Department on the above date and was hospitalized for further evaluation of their emergent condition. - New Patient This patient is new to me today: Yes Date on this admission: 05/07/17 - Critical Care Critical Care patient: Yes Total Critical Care Time (in minutes): 30 Critical Care Statement: The care of this patient involved high complexity decision making to prevent further life threatening deterioration of the patient 's condition and/or to evaluate & treat vital organ system(s) failure or risk of failure.
--- NOTE | 2017-05-07 15:47 | PN ---
Progress Note, Physician History of Present Illness: 86 year-old man NHR, HTN, CHF, CAD, JAQUELINE, schizophrenia & depression admitted with fall out of wheelchair with scalp laceration. He was hypothermic with rectal temp @ 91.5F, and a pulse of 35 w/ SBP in the 90's. He was given glucagon (On lopressor) & Started on TCP. He is receiving low dose dopamine in ICU. Tele shows sinus/atrial tachycardia with intermittent sinus bradycardia, sinus arrest, juctional escape rhythm and questionable 2:1 AVB. - Current Medication List Current Medications: Active Medications Docusate Sodium (Colace -) 100 mg PO Q8H PRN PRN Reason: CONSTIPATION Heparin Sodium (Porcine) (Heparin -) 5,000 unit SQ TID CINTHYA Last Admin: 05/07/17 13:19 Dose: 5,000 unit Dopamine HCl/Dextrose (Dopamine 400 Mg/D5w -) 250 mls @ 14.884 mls/hr IVPB TITR CINTHYA; 5 MCG/KG/MIN PRN Reason: Protocol Last Admin: 05/06/17 22:22 Dose: 8.93 mls/hr Famotidine/Sodium Chloride (Pepcid 20 Mg Premixed Ivpb -) 50 mls @ 100 mls/hr IVPB BID CINTHYA Last Admin: 05/07/17 09:58 Dose: 100 mls/hr - Objective Vital Signs: Vital Signs Temperature 98.1 F 05/07/17 06:00 Pulse Rate 64 05/07/17 12:00 Respiratory Rate 17 05/07/17 12:00 Blood Pressure 145/74 05/07/17 12:00 O2 Sat by Pulse Oximetry (%) 92 L 05/07/17 10:47 Constitutional: Yes: Well Nourished, No Distress Eyes: Yes: Conjunctiva Clear HENT: Yes: Other (Scalp laceration.) Neck: Yes: Supple, Trachea Midline Cardiovascular: Yes: Regular Rate and Rhythm, Bradycardia, Tachycardia, Murmur ( II/ GENNY) Respiratory: Yes: Regular, CTA Bilaterally Gastrointestinal: Yes: Normal Bowel Sounds, Soft ...Rectal Exam: Yes: Deferred Edema: Yes (Erythema. ) Edema: LLE: 1+, RLE: 1+ Psychiatric: Yes: Alert, Agitated Labs: CBC, BMP 05/07/17 05:00 05/07/17 05:00 INR, PTT INR 1.03 (0.82-1.09) 05/06/17 05:15 Assessment/Plan Sick sinus syndrome: sinus/atrial tachycardia with intermittent sinus bradycardia, sinus arrest, juctional escape rhythm and questionable 2:1 AVB. Hypothermia resolved and beta hasmukh stopped. Arrhythma service evaluation for permanent pacemaker implantation. Continue low dose dopamine at this point. would not place TPM. Echo pending, Hold all SA and AV micha active agents. Follow telemetry closely.
[2017-05-07 16:19] LABS: FREE T3 2.1 pg/mL (2.0-4.4)
--- NOTE | 2017-05-07 16:55 | PN ---
Progress Note, Physician Chief Complaint: Unable to obtain - Current Medication List Current Medications: Active Medications Docusate Sodium (Colace -) 100 mg PO Q8H PRN PRN Reason: CONSTIPATION Heparin Sodium (Porcine) (Heparin -) 5,000 unit SQ TID CINTHYA Last Admin: 05/07/17 13:19 Dose: 5,000 unit Dopamine HCl/Dextrose (Dopamine 400 Mg/D5w -) 250 mls @ 14.884 mls/hr IVPB TITR CINTHYA; 5 MCG/KG/MIN PRN Reason: Protocol Last Admin: 05/06/17 22:22 Dose: 8.93 mls/hr Famotidine/Sodium Chloride (Pepcid 20 Mg Premixed Ivpb -) 50 mls @ 100 mls/hr IVPB BID CINTHYA Last Admin: 05/07/17 09:58 Dose: 100 mls/hr - Objective Vital Signs: Vital Signs Temperature 36.9 C 05/07/17 14:00 Pulse Rate 68 05/07/17 16:00 Respiratory Rate 21 05/07/17 16:00 Blood Pressure 155/72 05/07/17 16:00 O2 Sat by Pulse Oximetry (%) 92 L 05/07/17 10:47 Constitutional: Yes: Well Nourished, No Distress, Calm, Other (confused) Cardiovascular: Yes: Regular Rate and Rhythm. No: Gallop, Murmur, Rub Respiratory: Yes: Regular, CTA Bilaterally. No: Rales, Rhonchi, Wheezes Gastrointestinal: Yes: Normal Bowel Sounds, Soft. No: Distention, Tenderness Extremities: Yes: WNL Edema: No Labs: CBC, BMP 05/07/17 05:00 05/07/17 05:00 INR, PTT INR 1.03 (0.82-1.09) 05/06/17 05:15 Problem List - Problems (1) Bradycardia Assessment/Plan: -cardiology following -follow up ECHO -continue on dopamine gtt -hold beta blockers -possible pacemaker placement Code(s): R00.1 - BRADYCARDIA, UNSPECIFIED (2) Hypothermia Assessment/Plan: -resolved -suspect secondary to bradycardia Code(s): T68.XXXA - HYPOTHERMIA, INITIAL ENCOUNTER (3) Renal failure (ARF), acute on chronic Assessment/Plan: -creatinine significantly elevated -suspect secondary to bradycardia/shock -followed by Dr Mercedes, will consult -maintain heart rate Code(s): N17.9 - ACUTE KIDNEY FAILURE, UNSPECIFIED N18.9 - CHRONIC KIDNEY DISEASE, UNSPECIFIED (4) Hyperkalemia Assessment/Plan: -suspect secondary to apoptosis of cells secondary to hypoperfusion from bradycardia -given kayexelate -monitor Code(s): E87.5 - HYPERKALEMIA (5) Anemia Assessment/Plan: -stable -s/p transfusion Code(s): D64.9 - ANEMIA, UNSPECIFIED Qualifiers: Anemia type: unspecified type Qualified Code(s): D64.9 - Anemia, unspecified (6) CAD (coronary artery disease) Assessment/Plan: -cardiology following Code(s): I25.10 - ATHSCL HEART DISEASE OF [place] CORONARY ARTERY W/O ANG PCTRS (7) CHF (congestive heart failure) Assessment/Plan: -follow up ECHO -received dose of IV lasix -cardiology following Code(s): I50.9 - HEART FAILURE, UNSPECIFIED Qualifiers: Congestive heart failure type: unspecified congestive heart failure type Congestive heart failure chronicity: chronic Qualified Code(s): I50.9 - Heart failure, unspecified (8) Dementia Assessment/Plan: -worsened secondary to critical condition -monitor for improvement Code(s): F03.90 - UNSPECIFIED DEMENTIA WITHOUT BEHAVIORAL DISTURBANCE (9) HTN (hypertension) Assessment/Plan: -on dopamine gtt currently Code(s): I10 - ESSENTIAL (PRIMARY) HYPERTENSION Assessment/Plan 38 minutes spent in critical care time of this patient
[2017-05-07] MEDS: DOPAMINE 400 MG/D5W - 250 ML IVPB SCH (23:11)
[2017-05-08 06:01] LABS: BASOPHIL 0.2 % (0-2.0); EOSINOPHIL 0.1 % (0-4.5); MCH 31.2 pg (25.7-33.7); MEAN CELL VOLUME 91.9 fl (80-96); MEAN PLT VOLUME 8.5 fl (7.5-11.1); NEUTROPHILS 88.5 % (42.8-82.8); PLATELET COUNT 210 K/MM3 (134-434); RDW 17.9 % (11.9-15.9); WHITE BLOOD COUNT 9.2 K/mm3 (4.0-10.0)
[2017-05-08 06:07] LABS: SERUM IRON 37 ug/dL (38-169); TOTAL IRON BINDING CAPACITY 259 ug/dL (250-450); UIBC 222 ug/dL (111-343)
[2017-05-08] MEDS: DOPAMINE 400 MG/D5W - 250 ML IVPB SCH (07:00)
[2017-05-08] MEDS: HEPARIN NA (PORCINE) 5,000 UNITS/ML 1ML VIAL SQ SCH ×3 (07:09→21:13)
[2017-05-08 07:13] LABS: ALBUMIN 2.8 g/dl (3.4-5.0); ANION GAP 14 (8-16); CALCIUM 8.3 mg/dL (8.5-10.1); CO2 21 mmol/L (21-32); GLUCOSE,RANDOM 88 mg/dL (74-106); MAGNESIUM 2.2 mg/dL (1.8-2.4)
[2017-05-08 07:17] LABS: ALK PHOS 161 U/L (45-117); BILIRUBIN,TOTAL 0.3 mg/dL (0.2-1.0); CREATININE 3.2 mg/dL (0.7-1.3); PHOSPHOROUS 4.9 mg/dL (2.5-4.9); SGOT/AST 32 U/L (15-37); SGPT/ALT 77 U/L (12-78); TOT PROT 5.3 g/dl (6.4-8.2)
[2017-05-08] MEDS: FAMOTIDINE 20 MG/50 ML IVPB 50 ML IVPB SCH ×2 (09:22→21:12)
--- NOTE | 2017-05-08 10:43 | PN ---
Progress Note (short form) - Note Progress Note: Renal follow up for SUZI This is a 86 year old gentleman with PMhx of CKD stage 4 (baseline Cr 2.1-2.6), CHF, Anemia, GI bleed, Hyperlipidiemia, Recent admission for hematuria who presented s/p fall with bradycardia, fluid overload and SUZI on CKD. Pt is awake and alert and reports feeling thirsty. Denies any sob, chest pain, fever or chills. Was on Oral lasix at [place]. No Fever, chills, N/V/D. HR now improved. Was given IV lasix. Started on IV dopamine gtt. Vital Signs Temperature 98.6 F 05/08/17 06:00 Pulse Rate 77 05/08/17 08:00 Respiratory Rate 18 05/08/17 08:15 Blood Pressure 154/80 05/08/17 08:00 O2 Sat by Pulse Oximetry (%) 96 05/08/17 08:15 Intake & Output 05/05/17 05/06/17 05/07/17 05/08/17 23:59 23:59 23:59 23:59 Intake Total 550 379.8 35 Balance 550 379.8 35 Weight 180 lb 12.465 oz 185 lb 14.4 oz 173 lb 7 oz Gen: NAD, awake and alert CVS: RRR, No M/R Lungs: Dec BS at lung bases, no rales Abd: soft NT/ND Ext: + sacral edema, trace to 1+ LE edema CBC, BMP 05/08/17 05:00 05/08/17 05:00 Laboratory Tests 05/08/17 05:00 Calcium 8.3 L Phosphorus 4.9 Magnesium 2.2 Albumin 2.8 L Current Medications Docusate Sodium (Colace -) 100 mg PO Q8H PRN PRN Reason: CONSTIPATION Heparin Sodium (Porcine) (Heparin -) 5,000 unit SQ TID CINTHYA Last Admin: 05/08/17 07:09 Dose: 5,000 unit Dopamine HCl/Dextrose (Dopamine 400 Mg/D5w -) 250 mls @ 14.884 mls/hr IVPB TITR CINTHYA; 5 MCG/KG/MIN PRN Reason: Protocol Last Admin: 05/08/17 07:00 Dose: 8.93 mls/hr Famotidine/Sodium Chloride (Pepcid 20 Mg Premixed Ivpb -) 50 mls @ 100 mls/hr IVPB BID CINTHYA Last Admin: 05/08/17 09:22 Dose: 100 mls/hr A/P 86 year old gentleman with PMhx of CKD stage 4 (baseline Cr 2.1-2.6), CHF, Anemia, GI bleed, Hyperlipidiemia, Recent admission for hematuria who presented s/p fall with bradycardia, fluid overload and SUZI on CKD. #Acute on Chronic Renal insufficiency Etiology likely pre-renal secondary to cardio-renal syndrome vs. obstruction Check urine studies including FeURea Renal US results noted, pt with unilateral hydronephrosis pt noted to have bladder mass/clot on last admission, recommend urology consult Trend urine output no acute indication for harris at this time low salt diet #Hypernatremia etiology is likely lack of access to free water Free water deficit is 3.7 L encourage free water intake #Bradycardia improved on dopamine gtt off BB cardiology following #Anemia Trend CBC Thank you Teja Mercedes DO
--- NOTE | 2017-05-08 11:07 | PN ---
Progress Note, Physician Chief Complaint: Patient says he does not feel good because he cannot get up. Having hallucinations, makes mention of a cat being in the room. - Current Medication List Current Medications: Active Medications Docusate Sodium (Colace -) 100 mg PO Q8H PRN PRN Reason: CONSTIPATION Furosemide (Lasix Injection -) 40 mg IVPUSH BID@0600,1400 CINTHYA Heparin Sodium (Porcine) (Heparin -) 5,000 unit SQ TID [facility] Last Admin: 05/08/17 07:09 Dose: 5,000 unit Dopamine HCl/Dextrose (Dopamine 400 Mg/D5w -) 250 mls @ 14.884 mls/hr IVPB TITR CINTYHA; 5 MCG/KG/MIN PRN Reason: Protocol Last Admin: 05/08/17 07:00 Dose: 8.93 mls/hr Famotidine/Sodium Chloride (Pepcid 20 Mg Premixed Ivpb -) 50 mls @ 100 mls/hr IVPB BID [facility] Last Admin: 05/08/17 09:22 Dose: 100 mls/hr - Objective Vital Signs: Vital Signs Temperature 37.0 C 05/08/17 06:00 Pulse Rate 77 05/08/17 08:00 Respiratory Rate 18 05/08/17 08:15 Blood Pressure 154/80 05/08/17 08:00 O2 Sat by Pulse Oximetry (%) 96 05/08/17 08:15 Constitutional: Yes: Well Nourished, No Distress, Calm Cardiovascular: Yes: Regular Rate and Rhythm. No: Gallop, Murmur, Rub Respiratory: Yes: Regular, CTA Bilaterally. No: Rales, Rhonchi, Wheezes Gastrointestinal: Yes: Normal Bowel Sounds, Soft. No: Distention, Tenderness Extremities: Yes: Erythema Edema: Yes Edema: LLE: 1+, RLE: 1+ Labs: CBC, BMP 05/08/17 05:00 05/08/17 05:00 INR, PTT INR 1.03 (0.82-1.09) 05/06/17 05:15 Problem List - Problems (1) Bradycardia Code(s): R00.1 - BRADYCARDIA, UNSPECIFIED (2) Hypothermia Code(s): T68.XXXA - HYPOTHERMIA, INITIAL ENCOUNTER (3) Renal failure (ARF), acute on chronic Code(s): N17.9 - ACUTE KIDNEY FAILURE, UNSPECIFIED N18.9 - CHRONIC KIDNEY DISEASE, UNSPECIFIED (4) Hyperkalemia Code(s): E87.5 - HYPERKALEMIA (5) Anemia Code(s): D64.9 - ANEMIA, UNSPECIFIED Qualifiers: Anemia type: unspecified type Qualified Code(s): D64.9 - Anemia, unspecified (6) CAD (coronary artery disease) Code(s): I25.10 - ATHSCL HEART DISEASE OF [place] CORONARY ARTERY W/O ANG PCTRS (7) CHF (congestive heart failure) Code(s): I50.9 - HEART FAILURE, UNSPECIFIED Qualifiers: Congestive heart failure type: unspecified congestive heart failure type Congestive heart failure chronicity: chronic Qualified Code(s): I50.9 - Heart failure, unspecified (8) Dementia Code(s): F03.90 - UNSPECIFIED DEMENTIA WITHOUT BEHAVIORAL DISTURBANCE (9) HTN (hypertension) Code(s): I10 - ESSENTIAL (PRIMARY) HYPERTENSION Assessment/Plan (1) Bradycardia Assessment/Plan: -cardiology following -ECHO followed up -continue dopamine gtt -await further recommendations per cardiology Code(s): R00.1 - BRADYCARDIA, UNSPECIFIED (2) Hypothermia Assessment/Plan: -resolved -suspect secondary to bradycardia Code(s): T68.XXXA - HYPOTHERMIA, INITIAL ENCOUNTER (3) Renal failure (ARF), acute on chronic Assessment/Plan: -case d/w nephrology -renal ultrasound showing hydronephrosis -consult urology -patient intravascularly depleted but third spacing -will continue free water but add lasix Code(s): N17.9 - ACUTE KIDNEY FAILURE, UNSPECIFIED N18.9 - CHRONIC KIDNEY DISEASE, UNSPECIFIED (4) Hyperkalemia Assessment/Plan: -resolved Code(s): E87.5 - HYPERKALEMIA (5) Anemia Assessment/Plan: -stable -s/p transfusion Code(s): D64.9 - ANEMIA, UNSPECIFIED Qualifiers: Anemia type: unspecified type Qualified Code(s): D64.9 - Anemia, unspecified (6) CAD (coronary artery disease) Assessment/Plan: -cardiology following Code(s): I25.10 - ATHSCL HEART DISEASE OF [place] CORONARY ARTERY W/O ANG PCTRS (7) CHF (congestive heart failure) Assessment/Plan: -lasix as above Code(s): I50.9 - HEART FAILURE, UNSPECIFIED Qualifiers: Congestive heart failure type: unspecified congestive heart failure type Congestive heart failure chronicity: chronic Qualified Code(s): I50.9 - Heart failure, unspecified (8) Dementia Assessment/Plan: -improved today but not at baseline Code(s): F03.90 - UNSPECIFIED DEMENTIA WITHOUT BEHAVIORAL DISTURBANCE (9) HTN (hypertension) Assessment/Plan: -on dopamine gtt currently Code(s): I10 - ESSENTIAL (PRIMARY) HYPERTENSION (10) Hypernatremia -case d/w nephrology -continue free water Assessment/Plan 35 minutes spent in critical care time of this patient
--- NOTE | 2017-05-08 11:37 | CONSULT ---
Admitting History and Physical - Primary Care Physician PCP: Hai Diaz - Admission History of Present Illness: 86 Y/O Male admitted to the ICU from [facility]. Pt was on Reg diet/thin liquids in [place]. Diagnosis: Bradycardia, head injury, anemia. - PMH: anemia, CHF, HTN, high cholesterol, GI disorder, renal failure, dementia , schizophrenia, depression. 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 duo bx neg) - Advance Directives Advance Directives: Yes: Health Care Proxy - Smoking History Smoking history: Unknown if ever smoked Have you smoked in the past 12 months: No Aproximately how many cigarettes per day: 15 If you are a former smoker, when did you quit?: does not remember - Alcohol/Substance Use Hx Alcohol Use: No - Social History ADL: Support Services History of Recent Travel: No History - Admission Reason For Visit: BRADYCARDIA,HEAD INJURY,AMENIA - Diagnostics X-ray: Report Reviewed - General Mental Status: Awake and Alert, Able to Follow Commands, Forgetful, Vague, Confused, Flat Affect Attention: Distractible, Mild Impairment Ability to Follow Directions: Fair Head/Neck Control: Fair - Hearing Hearing: Functional Hearing Aide: No With Patient: No Speech Evaluation - Communication Primary Language: HUNGARIAN Communication: Yes: Simple Responses Oral Expression Ability: Yes: Moderate Impairment - Speech Production Able to Make Needs Known: Yes: Moderately Impaired Intelligibility: Yes: WNL - Speech Characteristics Voice Loudness: Mildly Soft/Quiet Voice Pitch: Yes: Normal Speech Pattern: Impaired Speech Clarity: < 50% Nasal Resonance: Normal Articulation: Yes: Precise - Language/Auditory Comprehension Observation: Comprehends Conversational Speech: Yes (simple) - Language/Verbal Expression Aphasia: Yes: Anomia Able to Respond to Simple Queries: Yes: Moderately Impaired Able to Communicate Wants and Needs: Yes: Moderately Impaired Functional Communication Status: Yes: Moderately Impaired - Swallow Evaluation/Bedside Assessment Current Nutritional Intake: Dysphagia Pureed, Ma[place] Textured Liquids, Other Oral Secretions: Yes: WFL Dentition: Yes: Missing Teeth Facial Symmetry at Rest: Symmetrical Facial Symmetry on Retraction: Symmetrical Pucker Lips: Normal Smile: Normal Lingual Movement: Symmetric Lingual Speed of Movement: Normal Lingual Movement Strgth Against Opposition: Normal Lingual Movement Characteristics: Normal Velopharyngeal Movement: Normal Laryngeal Elevation: Impaired Laryngeal Movement: Labored,delay initiation Labial Seal: WFL Chewing: WFL Oral Prep Time: WFL A-P Transit: WFL Pocketing: None Timing of Swallow: Delayed Coughing/Throat Clear: Yes (rare. Increased RR while drinking continuously) Recommendations - Speech Evaluation, Impression/Plan Impression: Brief throat clear/cough after drinking. Increased RR while drinking continuously. Wheeze. Given Lasix. Increased RR, increases risk of aspiration. - Disposition Discharge to: [facility] - Dysphagia Impressions/Plan Dysphagia Impressions: Risk of Aspiration, Ongoing Evaluation *Silent aspiration: cannot be R/O at bedside Dysphagia Treatment Plan: Chin Tuck/Down, Clear Pocket Food, Safe Rate, 1/2 tsp. at a time, Elevate HOB during feed, OOB for 1 h. after meals Recommendations: Other (LIME SLAKER to reassess for diet upgrade/mbs as indicated.) - Recommendations Diet Consistency: Dysphagia Minced Medication Administration: Crushed with applesauce Liquids: Maeser Thick
[2017-05-08] MEDS: FUROSEMIDE 40 MG/4 ML INJECTABLE VIAL IVPUSH SCH ×2 (12:00→15:00)
--- NOTE | 2017-05-08 12:29 | PN ---
Teaching Attending Note Name of Resident: Sylvester Baez ATTENDING PHYSICIAN STATEMENT I saw and evaluated the patient. I reviewed the resident's note and discussed the case with the resident. I agree with the resident's findings and plan as documented. SUBJECTIVE: Pt seen and examined in the ICU. More alert, awake today. More appropriate. Remains on dopamine gtt, no signficant bradycardia noted. OBJECTIVE: Last Vital Signs Temp Pulse Resp BP Pulse Ox 98.6 F 100 H 19 156/74 96 05/08/17 06:00 05/08/17 10:00 05/08/17 10:00 05/08/17 10:00 05/08/17 08:15 Intake & Output 05/05/17 05/06/17 05/07/17 05/08/17 23:59 23:59 23:59 23:59 Intake Total 550 379.8 35 Balance 550 379.8 35 Weight 180 lb 12.465 oz 185 lb 14.4 oz 173 lb 7 oz Gen: more alert, awake Heart: tachycardic, regular Lung: scattered rhonchi Abd: soft, nontender Ext: + edema CBC, BMP 05/08/17 05:00 05/08/17 05:00 Active Medications Docusate Sodium (Colace -) 100 mg PO Q8H PRN PRN Reason: CONSTIPATION Furosemide (Lasix Injection -) 40 mg IVPUSH BID@0600,1400 [facility] Last Admin: 05/08/17 12:00 Dose: 40 mg Heparin Sodium (Porcine) (Heparin -) 5,000 unit SQ TID [facility] Last Admin: 05/08/17 07:09 Dose: 5,000 unit Dopamine HCl/Dextrose (Dopamine 400 Mg/D5w -) 250 mls @ 14.884 mls/hr IVPB TITR CINTHYA; 5 MCG/KG/MIN PRN Reason: Protocol Last Admin: 05/08/17 07:00 Dose: 8.93 mls/hr Famotidine/Sodium Chloride (Pepcid 20 Mg Premixed Ivpb -) 50 mls @ 100 mls/hr IVPB BID [facility] Last Admin: 05/08/17 09:22 Dose: 100 mls/hr ASSESSMENT AND PLAN: Bradycardia improved Hypothermia resolved Acute on Chronic Renal Failure Anemia CAD LV Systolic Dysfunction Pulmonary HTN Aortic Stenosis HTN Schizophrenia Depression - dopamine gtt per cardiology - hold all rate controlling agents - transfuse if Hgb <7 - monitor H/H - IV lasix - monitor urine output, creatinine - PO as tolerated - encourage PO free water - aspiration precautions - DVT prophylaxis - can monitor on telemetry if heart rates stable off dopamine gtt
--- NOTE | 2017-05-08 14:53 | PN ---
Progress Note, Physician Chief Complaint: Patient is lethargic and confused at the time exam. No acute distress. Tele shows sinus tachy and bradycardia. No recurrent sinus arrest or pause in the past 24 hours. History of Present Illness: 86 year-old man NHR, HTN, CHF, CAD, JAQUELINE, schizophrenia & depression admitted with fall out of wheelchair with scalp laceration. He was hypothermic with rectal temp @ 91.5F, and a pulse of 35 w/ SBP in the 90's. He was given glucagon (On lopressor) & Started on TCP. He is receiving low dose dopamine in ICU. Tele showed sinus/atrial tachycardia with intermittent sinus bradycardia, sinus arrest, juctional escape rhythm and questionable 2:1 AVB. Right leg cellulitis noted. - Current Medication List Current Medications: Active Medications Docusate Sodium (Colace -) 100 mg PO Q8H PRN PRN Reason: CONSTIPATION Furosemide (Lasix Injection -) 40 mg IVPUSH BID@0600,1400 [facility] Last Admin: 05/08/17 12:00 Dose: 40 mg Heparin Sodium (Porcine) (Heparin -) 5,000 unit SQ TID [facility] Last Admin: 05/08/17 07:09 Dose: 5,000 unit Dopamine HCl/Dextrose (Dopamine 400 Mg/D5w -) 250 mls @ 14.884 mls/hr IVPB TITR [facility]; 5 MCG/KG/MIN PRN Reason: Protocol Last Admin: 05/08/17 07:00 Dose: 8.93 mls/hr Famotidine/Sodium Chloride (Pepcid 20 Mg Premixed Ivpb -) 50 mls @ 100 mls/hr IVPB BID [facility] Last Admin: 05/08/17 09:22 Dose: 100 mls/hr - Objective Vital Signs: Vital Signs Temperature 98.6 F 05/08/17 06:00 Pulse Rate 100 H 05/08/17 10:00 Respiratory Rate 19 05/08/17 10:00 Blood Pressure 156/74 05/08/17 10:00 O2 Sat by Pulse Oximetry (%) 96 05/08/17 08:15 Constitutional: Yes: Well Nourished, No Distress Eyes: Yes: Conjunctiva Clear, EOM Intact HENT: Yes: WNL, Normocephalic (Scalp laceration.) Neck: Yes: Supple, Trachea Midline Cardiovascular: Yes: Regular Rate and Rhythm, Bradycardia, Tachycardia Respiratory: Yes: Regular, CTA Bilaterally Gastrointestinal: Yes: Normal Bowel Sounds, Soft ...Rectal Exam: Yes: Deferred Extremities: Yes: Erythema (Right and left leg erythema and warmth with mild edema. Right >left.) Peripheral Pulses WNL: Yes Neurological: Yes: Confusion Labs: CBC, BMP 05/08/17 05:00 05/08/17 05:00 INR, PTT INR 1.03 (0.82-1.09) 05/06/17 05:15 Assessment/Plan Sick sinus syndrome: sinus tachy-mckinley with evidence of sinus arrest and juctional escape rhythm. Hypothermia resolved and beta hasmukh stopped. Permanent pacemaker implantation is indicated. Dr. Dooley is available this week to see the patient. Could transfer the patient to [facility] for PPM implantation. Right leg cellulitis should be treated. Discontinue dopamine. would not place TPM. Hold all SA and AV micha active agents. Follow telemetry closely.
[2017-05-08] MEDS: CEFAZOLIN (PRE-DOCKED) 50 ML IVPB SCH ×2 (15:02→18:51)
--- NOTE | 2017-05-08 15:30 | PN ---
Physical Exam: SUBJECTIVE: 86 yo M with h/o CHF, HTN, dementia, and schitzophrenia who presented to ED following fall from wheelchair. Hit his head and presented to ED with head laceration. Wa shypothermic in Ed with rectal temp of 91.5, pulse of 35 , and SBP of 90's. Given glucagon for suspected beta hasmukh toxicity and started on transcutaneous pacing. Admitted to ED for symtpomatic bradycardia. No acute events this AM. Overnight patient placed in wrist restraints d/t baseline mental status and nigh time agitation. Denies complaints and cooperative this AM. OBJECTIVE: Vital Signs Period Temp Pulse Resp BP Sys/Jeronimo Pulse Ox Last 24 Hr 98.2 F-98.6 F 68-102 18-21 140-177/49-94 96-96 GENERAL: The patient is awake, alert, and fully oriented, in no acute distress. HEAD: Normal with no signs of trauma. EYES: PERRL, extraocular movements intact, sclera anicteric, conjunctiva clear. No ptosis. ENT: Ears normal, nares patent, oropharynx clear without exudates, moist mucous membranes. NECK: Trachea midline, full range of motion, supple. LUNGS:diffuse rales and rhonci. HEART: Regular rate and rhythm, S1, S2 without murmur, rub or gallop. ABDOMEN: Soft, nontender, nondistended, normoactive bowel sounds, no guarding, no rebound, no hepatosplenomegaly, no masses. EXTREMITIES: + RLE anterior tibial erythema and warmth. Absent crepitus and fluctuance. 2+ pulses, warm, well-perfused, no edema. NEUROLOGICAL: Cranial nerves II through XII grossly intact. Normal speech, gait not observed. PSYCH: Normal mood, normal affect. SKIN: Warm, dry, normal turgor, no rashes or lesions noted Laboratory Results - last 24 hr 05/06/17 05/06/17 05/08/17 10:20 14:40 05:00 WBC 9.2 RBC 2.79 L Hgb 8.7 L Hct 25.6 L MCV 91.9 MCH 31.2 MCHC 34.0 RDW 17.9 H Plt Count 210 MPV 8.5 Neutrophils % 88.5 H Lymphocytes % 2.1 L D Monocytes % 9.1 Eosinophils % 0.1 D Basophils % 0.2 PTT (Actin FS) Sodium Potassium Chloride Carbon Dioxide Anion Gap BUN Creatinine Creat Clearance w eGFR Random Glucose Calcium Phosphorus Magnesium Iron 37 L TIBC 259 Iron Saturation 14 L Total Bilirubin AST ALT Alkaline Phosphatase Total Protein Albumin Free T3 2.1 Cortisol AM Sample 19.6 05/08/17 05/08/17 05:00 05:00 WBC RBC Hgb Hct MCV MCH MCHC RDW Plt Count MPV Neutrophils % Lymphocytes % Monocytes % Eosinophils % Basophils % PTT (Actin FS) 33.7 Sodium 151 H Potassium 4.3 D Chloride 116 H Carbon Dioxide 21 Anion Gap 14 BUN 77 H Creatinine 3.2 H Creat Clearance w eGFR 18.47 Random Glucose 88 Calcium 8.3 L Phosphorus 4.9 Magnesium 2.2 Iron TIBC Iron Saturation Total Bilirubin 0.3 D AST 32 D ALT 77 Alkaline Phosphatase 161 H Total Protein 5.3 L Albumin 2.8 L Free T3 Cortisol AM Sample Active Medications Generic Name Dose Route Start Last Admin Trade Name Freq PRN Reason Stop Dose Admin Docusate Sodium 100 mg 05/05/17 23:00 Colace - PO Q8H PRN CONSTIPATION Furosemide 40 mg 05/08/17 10:45 05/08/17 15:00 Lasix Injection - IVPUSH 40 mg BID@0600,1400 CINTHYA Administration Heparin Sodium (Porcine) 5,000 unit 05/06/17 06:00 05/08/17 15:00 Heparin - SQ 5,000 unit TID CINTHYA Administration Famotidine/Sodium Chloride 50 mls @ 100 mls/hr 05/06/17 10:00 05/08/17 09:22 Pepcid 20 Mg Premixed Ivpb - IVPB 100 mls/hr BID CINTHYA Administration Cefazolin Sodium 50 mls @ 100 mls/hr 05/08/17 15:00 05/08/17 15:02 Ancef 1gm Ivpb (Pre-Docked) IVPB 100 mls/hr Q8H-IV CINTHYA Administration ASSESSMENT/PLAN: 86 yo M with h/o CHF, HTN, dementia, and schitzophrenia who presented to ED following fall from wheelchair. Hit his head and presented to ED with head laceration. Was hypothermic in Ed with rectal temp of 91.5, pulse of 35 , and SBP of 90's. Given glucagon for suspected beta hasmukh toxicity and started on transcutaneous pacing. Admitted to ED for symtpomatic bradycardia. Cardiac: H/o LV systolic HF Holding rate controlling drugs D/c dopamine ppt per cardiology Hypotension resolved Bradycardia improved (05/07) Resume Coreg Sick sinus syndrome: sinus tachy-mckinley with evidence of sinus arrest and juctional escape rhythm. Indication for permanent pacemaker placement. Dr. Dooley is available for the week to see patient. Possible transfer to [facility] for pacemaker placement. Right leg cellulitis and pacemaker ppx with IV Cefazolin. . Follow telemetry closely. Anemia: Monitor H/H DVT and GI PPx FEN: Replace lytes PRN, Diet per long-term orders. Pt free water PO 250 mg Q6 PRN. Visit type - Emergency Visit Emergency Visit: Yes ED Registration Date: 05/05/17 Care time: The patient presented to the Emergency Department on the above date and was hospitalized for further evaluation of their emergent condition. - New Patient This patient is new to me today: No - Critical Care Critical Care patient: Yes Total Critical Care Time (in minutes): 35 Critical Care Statement: The care of this patient involved high complexity decision making to prevent further life threatening deterioration of the patient 's condition and/or to evaluate & treat vital organ system(s) failure or risk of failure.
[2017-05-09] MEDS: CEFAZOLIN (PRE-DOCKED) 50 ML IVPB SCH ×3 (01:01→17:04)
[2017-05-09] MEDS: HEPARIN NA (PORCINE) 5,000 UNITS/ML 1ML VIAL SQ SCH ×2 (05:43→13:59)
[2017-05-09] MEDS: FUROSEMIDE 40 MG/4 ML INJECTABLE VIAL IVPUSH SCH ×2 (05:43→14:00)
[2017-05-09 06:24] LABS: BASOPHIL 0.5 % (0-2.0); EOSINOPHIL 0.2 % (0-4.5); MCH 30.2 pg (25.7-33.7); MCHC 32.8 g/dl (32.0-35.9); MEAN PLT VOLUME 8.9 fl (7.5-11.1); NEUTROPHILS 89.5 % (42.8-82.8); PLATELET COUNT 192 K/MM3 (134-434); RDW 17.9 % (11.9-15.9); WHITE BLOOD COUNT 12.9 K/mm3 (4.0-10.0)
[2017-05-09 06:53] LABS: ALBUMIN 2.5 g/dl (3.4-5.0); ANION GAP 12 (8-16); CALCIUM 8.7 mg/dL (8.5-10.1); CO2 25 mmol/L (21-32); GLUCOSE,RANDOM 88 mg/dL (74-106); MAGNESIUM 2.2 mg/dL (1.8-2.4)
[2017-05-09 06:57] LABS: ALK PHOS 132 U/L (45-117); BILIRUBIN,TOTAL 0.3 mg/dL (0.2-1.0); CREATININE 3.1 mg/dL (0.7-1.3); PHOSPHOROUS 4.9 mg/dL (2.5-4.9); SGOT/AST 20 U/L (15-37); SGPT/ALT 44 U/L (12-78); TOT PROT 4.9 g/dl (6.4-8.2)
--- NOTE | 2017-05-09 09:29 | CON.GU ---
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 duo bx neg) - Alcohol/Substance Use Hx Alcohol Use: No - Smoking History Smoking history: Unknown if ever smoked Have you smoked in the past 12 months: No Aproximately how many cigarettes per day: 15 If you are a former smoker, when did you quit?: does not remember - Social History Usual Living Arrangement: Alone ADL: Support Services History of Recent Travel: No Home Medications - Allergies Allergies/Adverse Reactions: Allergies Allergy/AdvReac Type Severity Reaction Status Date / Time No Known Drug Allergies Allergy Verified 05/05/17 18:43 - Home Medications Home Medications: Ambulatory Orders Acetaminophen [Tylenol] 650 mg PO DAILY 04/05/17 Amlodipine Besylate 10 mg PO DAILY 04/05/17 Ascorbate Calcium [Vitamin C] 500 mg PO BID 04/05/17 Cilostazol 100 mg PO BID 04/05/17 Docusate Sodium [Colace -] 100 mg PO HS 04/05/17 Escitalopram Oxalate [Lexapro -] 20 mg PO DAILY 04/05/17 Ferrous Sulfate 325 mg PO BID 04/05/17 Krill Oil/[place]-3/Dha/Epa [[place]-3 Krill Oil Softgel] 1 each PO DAILY 04/05/17 Metoprolol Succinate [Toprol XL -] 25 mg PO DAILY 04/05/17 Multivitamin [One Daily] 1 each PO DAILY 04/05/17 Olanzapine 7.5 mg PO DAILY 04/05/17 Perphenazine [Trilafon -] 0.5 mg PO DAILY 04/05/17 Petrolatum,White/Lanolin [Vitamin A & D Ointment] 454 gm TP BID 04/05/17 Ranitidine [Zantac -] 150 mg PO BID 04/05/17 Tamsulosin HCl [Flomax] 0.4 mg PO DAILY 04/05/17 Furosemide [Lasix -] 40 mg PO BID@0600,1400 tablet 04/25/17 Review of Systems - Review of Systems Genitourinary: reports: Frequency, Hematuria. denies: Dysuria, Flank Pain Physical Exam- Vital Signs: Vital Signs Temperature 98.2 F 05/09/17 06:00 Pulse Rate 80 05/09/17 06:00 Respiratory Rate 19 05/09/17 06:00 Blood Pressure 147/59 05/09/17 06:00 O2 Sat by Pulse Oximetry (%) 98 05/08/17 20:34 Renal/: No: Bladder Distention, CVA Tenderness - Left, CVA Tenderness - Right , Seay Present, Hematuria Labs: CBC, BMP 05/09/17 05:10 05/09/17 05:10 Imaging - Results Ultrasound: Report Reviewed Problem List - Problems (1) Hydronephrosis Assessment/Plan: mild hydronephrosis. observe Code(s): N13.30 - UNSPECIFIED HYDRONEPHROSIS
[2017-05-09] MEDS: FAMOTIDINE 20 MG/50 ML IVPB 50 ML IVPB SCH (10:19)
--- NOTE | 2017-05-09 10:47 | PN ---
Progress Note, Physician Chief Complaint: Patient says he does not feel good but cannot tell why. - Current Medication List Current Medications: Active Medications Docusate Sodium (Colace -) 100 mg PO Q8H PRN PRN Reason: CONSTIPATION Furosemide (Lasix Injection -) 40 mg IVPUSH BID@0600,1400 [facility] Last Admin: 05/09/17 05:43 Dose: 40 mg Heparin Sodium (Porcine) (Heparin -) 5,000 unit SQ TID [facility] Last Admin: 05/09/17 05:43 Dose: 5,000 unit Famotidine/Sodium Chloride (Pepcid 20 Mg Premixed Ivpb -) 50 mls @ 100 mls/hr IVPB BID [facility] Last Admin: 05/09/17 10:19 Dose: 100 mls/hr Cefazolin Sodium (Ancef 1gm Ivpb (Pre-Docked)) 50 mls @ 100 mls/hr IVPB Q8H-IV [facility] Last Admin: 05/09/17 10:19 Dose: 100 mls/hr - Objective Vital Signs: Vital Signs Temperature 37.0 C 05/09/17 10:00 Pulse Rate 54 L 05/09/17 10:00 Respiratory Rate 15 05/09/17 10:00 Blood Pressure 156/63 05/09/17 10:00 O2 Sat by Pulse Oximetry (%) 98 05/08/17 20:34 Constitutional: Yes: Well Nourished, No Distress, Calm Cardiovascular: Yes: Regular Rate and Rhythm. No: Gallop, Murmur, Rub Respiratory: Yes: Regular, Rhonchi (slight), Wheezes. No: CTA Bilaterally, Rales Gastrointestinal: Yes: Normal Bowel Sounds, Soft. No: Distention, Tenderness Extremities: Yes: Erythema (unchanged) Edema: No Labs: CBC, BMP 05/09/17 05:10 05/09/17 05:10 INR, PTT INR 1.03 (0.82-1.09) 05/06/17 05:15 Problem List - Problems (1) Bradycardia Code(s): R00.1 - BRADYCARDIA, UNSPECIFIED (2) Hypothermia Code(s): T68.XXXA - HYPOTHERMIA, INITIAL ENCOUNTER (3) Renal failure (ARF), acute on chronic Code(s): N17.9 - ACUTE KIDNEY FAILURE, UNSPECIFIED N18.9 - CHRONIC KIDNEY DISEASE, UNSPECIFIED (4) Hyperkalemia Code(s): E87.5 - HYPERKALEMIA (5) Anemia Code(s): D64.9 - ANEMIA, UNSPECIFIED Qualifiers: Anemia type: unspecified type Qualified Code(s): D64.9 - Anemia, unspecified (6) CAD (coronary artery disease) Code(s): I25.10 - ATHSCL HEART DISEASE OF [place] CORONARY ARTERY W/O ANG PCTRS (7) CHF (congestive heart failure) Code(s): I50.9 - HEART FAILURE, UNSPECIFIED Qualifiers: Congestive heart failure type: unspecified congestive heart failure type Congestive heart failure chronicity: chronic Qualified Code(s): I50.9 - Heart failure, unspecified (8) Dementia Code(s): F03.90 - UNSPECIFIED DEMENTIA WITHOUT BEHAVIORAL DISTURBANCE (9) HTN (hypertension) Code(s): I10 - ESSENTIAL (PRIMARY) HYPERTENSION Assessment/Plan (1) Bradycardia Assessment/Plan: -resolved -off dopamine gtt -cardiology following -? transfer to [facility] for pacemaker placement Code(s): R00.1 - BRADYCARDIA, UNSPECIFIED (2) Hypothermia Assessment/Plan: -resolved -suspect secondary to bradycardia Code(s): T68.XXXA - HYPOTHERMIA, INITIAL ENCOUNTER (3) Renal failure (ARF), acute on chronic Assessment/Plan: -appreciate nephrology and urology assistance -stable -continue lasix as patient is third spacing Code(s): N17.9 - ACUTE KIDNEY FAILURE, UNSPECIFIED N18.9 - CHRONIC KIDNEY DISEASE, UNSPECIFIED (4) Hyperkalemia Assessment/Plan: -resolved Code(s): E87.5 - HYPERKALEMIA (5) Anemia Assessment/Plan: -stable -s/p transfusion Code(s): D64.9 - ANEMIA, UNSPECIFIED Qualifiers: Anemia type: unspecified type Qualified Code(s): D64.9 - Anemia, unspecified (6) CAD (coronary artery disease) Assessment/Plan: -cardiology following Code(s): I25.10 - ATHSCL HEART DISEASE OF [place] CORONARY ARTERY W/O ANG PCTRS (7) CHF (congestive heart failure) Assessment/Plan: -continue lasix -improving chest x-ray Code(s): I50.9 - HEART FAILURE, UNSPECIFIED Qualifiers: Congestive heart failure type: unspecified congestive heart failure type Congestive heart failure chronicity: chronic Qualified Code(s): I50.9 - Heart failure, unspecified (8) Dementia Assessment/Plan: -improved today but not at baseline Code(s): F03.90 - UNSPECIFIED DEMENTIA WITHOUT BEHAVIORAL DISTURBANCE (9) HTN (hypertension) Assessment/Plan: -off dopamine gtt -monitor Code(s): I10 - ESSENTIAL (PRIMARY) HYPERTENSION (10) Hypernatremia -continue free water (11) Leukocytosis -concern for possible infection -agree with starting empiric ancef -monitor Assessment/Plan 36 minutes spent in critical care time of this patient
--- NOTE | 2017-05-09 11:10 | PN ---
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 CXR- improving CHF. 250 ml every 6 hours ordered. Swallowing reassessed. Responsive cough on thin liquid. Suggest thickening this added water as well.
--- NOTE | 2017-05-09 11:47 | PN ---
Progress Note (short form) - Note Progress Note: Renal follow up for SUZI Pt seen and examined at the bedside awake and alert was trying to climb out of bed as per nursing staff no overnight events making urine but quantity unknown Vital Signs Temperature 98.6 F 05/09/17 10:00 Pulse Rate 54 L 05/09/17 10:00 Respiratory Rate 15 05/09/17 10:00 Blood Pressure 156/63 05/09/17 10:00 O2 Sat by Pulse Oximetry (%) 98 05/08/17 20:34 Intake & Output 05/06/17 05/07/17 05/08/17 05/09/17 23:59 23:59 23:59 23:59 Intake Total 550 379.8 1095 290 Balance 550 379.8 1095 290 Weight 185 lb 14.4 oz 173 lb 7 oz 164 lb 14.4 oz Gen: NAD, awake and alert CVS: RRR, No M/R Lungs: Dec BS at lung bases, no rales Abd: soft NT/ND Ext: + sacral edema, trace to 1+ LE edema CBC, BMP 05/09/17 05:10 05/09/17 05:10 Current Medications Docusate Sodium (Colace -) 100 mg PO Q8H PRN PRN Reason: CONSTIPATION Furosemide (Lasix Injection -) 40 mg IVPUSH BID@0600,1400 [facility] Last Admin: 05/09/17 05:43 Dose: 40 mg Heparin Sodium (Porcine) (Heparin -) 5,000 unit SQ TID [facility] Last Admin: 05/09/17 05:43 Dose: 5,000 unit Famotidine/Sodium Chloride (Pepcid 20 Mg Premixed Ivpb -) 50 mls @ 100 mls/hr IVPB BID [facility] Last Admin: 05/09/17 10:19 Dose: 100 mls/hr Cefazolin Sodium (Ancef 1gm Ivpb (Pre-Docked)) 50 mls @ 100 mls/hr IVPB Q8H-IV [facility] Last Admin: 05/09/17 10:19 Dose: 100 mls/hr A/P 86 year old gentleman with PMhx of CKD stage 4 (baseline Cr 2.1-2.6), CHF, Anemia, GI bleed, Hyperlipidiemia, Recent admission for hematuria who presented s/p fall with bradycardia, fluid overload and SUZI on CKD. #Acute on Chronic Renal insufficiency Etiology likely pre-renal secondary to cardio-renal syndrome vs. 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
--- NOTE | 2017-05-09 13:12 | PN ---
Teaching Attending Note Name of Resident: Carlee Fontana ATTENDING PHYSICIAN STATEMENT I saw and evaluated the patient. I reviewed the resident's note and discussed the case with the resident. I agree with the resident's findings and plan as documented. SUBJECTIVE: Pt seen and examined in the ICU. Some sinus bradycardia overnight, upon review of monitor, noted to be hypoxic during those episodes. Off dopamine gtt. OBJECTIVE: Last Vital Signs Temp Pulse Resp BP Pulse Ox 98.6 F 67 18 160/69 95 05/09/17 10:00 05/09/17 12:00 05/09/17 12:00 05/09/17 12:00 05/09/17 09:00 Intake & Output 05/06/17 05/07/17 05/08/17 05/09/17 23:59 23:59 23:59 23:59 Intake Total 550 379.8 1095 290 Balance 550 379.8 1095 290 Weight 185 lb 14.4 oz 173 lb 7 oz 164 lb 14.4 oz Gen: more alert, awake Heart: RRR Lung: decreased breath sounds at the bases Abd: soft, nontender Ext: less edema CBC, BMP 05/09/17 05:10 05/09/17 05:10 Active Medications Docusate Sodium (Colace -) 100 mg PO Q8H PRN PRN Reason: CONSTIPATION Furosemide (Lasix Injection -) 40 mg IVPUSH BID@0600,1400 [facility] Last Admin: 05/09/17 05:43 Dose: 40 mg Heparin Sodium (Porcine) (Heparin -) 5,000 unit SQ TID [facility] Last Admin: 05/09/17 05:43 Dose: 5,000 unit Famotidine/Sodium Chloride (Pepcid 20 Mg Premixed Ivpb -) 50 mls @ 100 mls/hr IVPB BID [facility] Last Admin: 05/09/17 10:19 Dose: 100 mls/hr Cefazolin Sodium (Ancef 1gm Ivpb (Pre-Docked)) 50 mls @ 100 mls/hr IVPB Q8H-IV [facility] Last Admin: 05/09/17 10:19 Dose: 100 mls/hr ASSESSMENT AND PLAN: Bradycardia improving Hypothermia resolved Acute on Chronic Renal Failure Anemia CAD LV Systolic Dysfunction Pulmonary HTN Aortic Stenosis HTN Schizophrenia Depression - hold all rate controlling agents - transfuse if Hgb <7 - monitor H/H - continue lasix - monitor urine output, creatinine - PO as tolerated - encourage PO free water - aspiration precautions - DVT prophylaxis - can monitor on telemetry
[2017-05-09] MEDS ORDERED: SILVER SULFADIAZINE 1% TOP CREAM 50 GM JAR TP ONE (14:00)
--- NOTE | 2017-05-09 14:17 | PN ---
Physical Exam: SUBJECTIVE: Patient seen and examined Patient resting in bed comfortably NAD. Episode of bradycardia mid 40's accompanied by hypoxia 80's overnight, currently Afebrile and hemodynamically stable HR 80's. Remains off dopamine gtt. Denies chest pain, sob, n/v. Mental status baseline confusion. Up for xfer tele OBJECTIVE Vital Signs Period Temp Pulse Resp BP Sys/Jeronimo Pulse Ox Last 24 Hr 98 F-98.6 F 46-83 12-22 132-160/49-79 95-98 GENERAL: The patient is awake, alert, confused at ms baseline HEAD: frontal cranial abrasion healing EYES: PERRL, extraocular movements intact, sclera anicteric, conjunctiva clear. ENT: moist mucous membranes. NECK: supple. LUNGS: Breath sounds equal, clear to auscultation bilaterally HEART: Regular rate and rhythm, S1, S2 ABDOMEN: Soft, nontender, nondistended, normoactive bowel sounds, no guarding, no rebound, no hepatosplenomegaly, no masses. EXTREMITIES: 2+ pulses, warm, well-perfused, no edema. NEUROLOGICAL: Cranial nerves II through XII grossly intact. PSYCH: Normal mood, normal affect. SKIN: Warm, dry Laboratory Results - last 24 hr 05/09/17 05/09/17 05/09/17 05:10 05:10 10:00 WBC 12.9 H D RBC 2.46 L Hgb 7.4 L D Hct 22.6 L MCV 92.0 MCH 30.2 MCHC 32.8 RDW 17.9 H Plt Count 192 MPV 8.9 Neutrophils % 89.5 H Lymphocytes % 2.7 L D Monocytes % 7.1 Eosinophils % 0.2 D Basophils % 0.5 Sodium 151 H Potassium 3.6 Chloride 114 H Carbon Dioxide 25 Anion Gap 12 BUN 77 H Creatinine 3.1 H Creat Clearance w eGFR 19.15 Random Glucose 88 Calcium 8.7 Phosphorus 4.9 Magnesium 2.2 Total Bilirubin 0.3 AST 20 D ALT 44 D Alkaline Phosphatase 132 H Total Protein 4.9 L Albumin 2.5 L Stool Occult Blood Positive Active Medications Generic Name Dose Route Start Last Admin Trade Name Freq PRN Reason Stop Dose Admin Docusate Sodium 100 mg 05/05/17 23:00 Colace - PO Q8H PRN CONSTIPATION Furosemide 40 mg 05/08/17 10:45 05/09/17 14:00 Lasix Injection - IVPUSH 40 mg BID@0600,1400 [facility] Administration Heparin Sodium (Porcine) 5,000 unit 05/06/17 06:00 05/09/17 13:59 Heparin - SQ 5,000 unit TID [facility] Administration Famotidine/Sodium Chloride 50 mls @ 100 mls/hr 05/06/17 10:00 05/09/17 10:19 Pepcid 20 Mg Premixed Ivpb - IVPB 100 mls/hr BID [facility] Administration Cefazolin Sodium 50 mls @ 100 mls/hr 05/08/17 15:00 05/09/17 10:19 Ancef 1gm Ivpb (Pre-Docked) IVPB 100 mls/hr Q8H-IV [facility] Administration ASSESSMENT/PLAN: 86 yo M with PMH of NHR, HTN, CHF, CAD, JAQUELINE, schizophrenia, & depression admitted 05/05/17 with symptomatioc bradycardia s/p fall from wheelchair w subsequent frontal cranial abrasion. Neuro *Schizophrenia *Depression -Mental status baseline confusion. occasionally responds appropriately -aspiration precautions Pulm: *possible sleep apnea -episode of bradycardia with hypoxia overnight, possible sleep apnea to be investigated further as cause of bradycardia *Pulmonary HTN-stable CV *symptomatic bradycardia -possible sick sinus -explore sleep apnea possibility before proceeding with EP therapy -bradycardia imptoving; episode of 40's overnight with hypoxia. -contineu to hold B blockers *Hypothermia resolved *Anemia -Hgb dropped to 7.4 -stool guaiac -transfuse for hgb <7 *CAD-stable *Systolic CHF-no current exacerbation *-stable *HTN -lasix 40 bid Renal *Acute on Chronic Renal Failure -Creat trending down 3.1 -monitor creat, uo, i/o FEN: No IVF lytes stable dysphagia puree hep, famotidine Dispo: xfer tele Problem List - Problems (1) Anemia Code(s): D64.9 - ANEMIA, UNSPECIFIED Qualifiers: Anemia type: unspecified type Qualified Code(s): D64.9 - Anemia, unspecified (2) Bradycardia Code(s): R00.1 - BRADYCARDIA, UNSPECIFIED (3) CAD (coronary artery disease) Code(s): I25.10 - ATHSCL HEART DISEASE OF [place] CORONARY ARTERY W/O ANG PCTRS (4) CHF (congestive heart failure) Code(s): I50.9 - HEART FAILURE, UNSPECIFIED Qualifiers: Congestive heart failure type: unspecified congestive heart failure type Congestive heart failure chronicity: chronic Qualified Code(s): I50.9 - Heart failure, unspecified (5) Dementia Code(s): F03.90 - UNSPECIFIED DEMENTIA WITHOUT BEHAVIORAL DISTURBANCE (6) Head injury Code(s): S09.90XA - UNSPECIFIED INJURY OF HEAD, INITIAL ENCOUNTER Qualifiers: Encounter type: initial encounter Qualified Code(s): S09.90XA - Unspecified injury of head, initial encounter (7) Hyperkalemia Code(s): E87.5 - HYPERKALEMIA (8) Hypothermia Code(s): T68.XXXA - HYPOTHERMIA, INITIAL ENCOUNTER (9) Renal failure (ARF), acute on chronic Code(s): N17.9 - ACUTE KIDNEY FAILURE, UNSPECIFIED N18.9 - CHRONIC KIDNEY DISEASE, UNSPECIFIED (10) Schizo-affective schizophrenia, chronic condition Code(s): F25.8 - OTHER SCHIZOAFFECTIVE DISORDERS (11) Acute on chronic renal failure Code(s): N17.9 - ACUTE KIDNEY FAILURE, UNSPECIFIED N18.9 - CHRONIC KIDNEY DISEASE, UNSPECIFIED (12) Cellulitis of leg, right Code(s): L03.115 - CELLULITIS OF RIGHT LOWER LIMB (13) Fall Code(s): W19.XXXA - UNSPECIFIED FALL, INITIAL ENCOUNTER Qualifiers: Encounter type: subsequent encounter Qualified Code(s): W19.XXXD - Unspecified fall, subsequent encounter (14) GIB (gastrointestinal bleeding) Code(s): K92.2 - GASTROINTESTINAL HEMORRHAGE, UNSPECIFIED (15) HTN (hypertension) Code(s): I10 - ESSENTIAL (PRIMARY) HYPERTENSION (16) Imbalance Code(s): R26.89 - OTHER ABNORMALITIES OF GAIT AND MOBILITY Visit type - Emergency Visit Emergency Visit: Yes ED Registration Date: 05/05/17 Care time: The patient presented to the Emergency Department on the above date and was hospitalized for further evaluation of their emergent condition. - New Patient This patient is new to me today: Yes Date on this admission: 05/09/17 - Critical Care Critical Care patient: Yes Total Critical Care Time (in minutes): 35 Critical Care Statement: The care of this patient involved high complexity decision making to prevent further life threatening deterioration of the patient 's condition and/or to evaluate & treat vital organ system(s) failure or risk of failure. - Discharge Referral Referred to [facility] No
--- NOTE | 2017-05-09 15:47 | PN ---
Progress Note, Physician Chief Complaint: Patient is lethargic and confused at the time exam. No acute distress. Tele shows sinus tachy and bradycardia. His heart rate variation is less. No severe bradycardia. No recurrent sinus arrest or pause in the past 24 hours. History of Present Illness: 86 year-old man NHR, HTN, CHF, CAD, JAQUELINE, schizophrenia & depression admitted with fall out of wheelchair with scalp laceration. He was hypothermic with rectal temp @ 91.5F, and a pulse of 35 w/ SBP in the 90's. He was given glucagon (On lopressor) & Started on TCP. He is receiving low dose dopamine in ICU. He has been treated for right leg cellulitis noted. Bradycardia improved. - Current Medication List Current Medications: Active Medications Docusate Sodium (Colace -) 100 mg PO Q8H PRN PRN Reason: CONSTIPATION Furosemide (Lasix Injection -) 40 mg IVPUSH BID@0600,1400 [facility] Last Admin: 05/09/17 14:00 Dose: 40 mg Heparin Sodium (Porcine) (Heparin -) 5,000 unit SQ TID [facility] Last Admin: 05/09/17 13:59 Dose: 5,000 unit Famotidine/Sodium Chloride (Pepcid 20 Mg Premixed Ivpb -) 50 mls @ 100 mls/hr IVPB BID [facility] Last Admin: 05/09/17 10:19 Dose: 100 mls/hr Cefazolin Sodium (Ancef 1gm Ivpb (Pre-Docked)) 50 mls @ 100 mls/hr IVPB Q8H-IV [facility] Last Admin: 05/09/17 10:19 Dose: 100 mls/hr - Objective Vital Signs: Vital Signs Temperature 98.6 F 05/09/17 14:00 Pulse Rate 52 L 05/09/17 14:00 Respiratory Rate 20 05/09/17 14:00 Blood Pressure 162/69 05/09/17 14:00 O2 Sat by Pulse Oximetry (%) 95 05/09/17 09:00 Constitutional: Yes: No Distress, Calm Eyes: Yes: Conjunctiva Clear Neck: Yes: Supple, Trachea Midline Cardiovascular: Yes: Regular Rate and Rhythm, Bradycardia, Tachycardia Respiratory: Yes: Regular, Wheezes Gastrointestinal: Yes: Normal Bowel Sounds, Soft ...Rectal Exam: Yes: Deferred Edema: LLE: 1+, RLE: Trace (Right leg erythema reduced.) Labs: CBC, BMP 05/09/17 05:10 05/09/17 05:10 INR, PTT INR 1.03 (0.82-1.09) 05/06/17 05:15 Assessment/Plan Sick sinus syndrome: sinus tachy-mckinley with evidence of sinus arrest and juctional escape rhythm. Heart rate improved with less severe bradycardia. Hypothermia resolved and beta hasmukh stopped. Permanent pacemaker implantation is indicated. Could wait for Dr. Dooley's evaluation till next week. Could transfer the patient to tele floor. Continue IV Abx for leg cellulitis. would not place TPM. Hold all SA and AV micha active agents.
[2017-05-09] MEDS ORDERED: FLU VACCINE QUAD 60 MCG/0.5 ML (MDV 17-18) IM ONE (16:00)
[2017-05-09] MEDS ORDERED: POTASSIUM CHLORIDE TABS 20 MEQ TABLET.ER (FP) PO ONE (16:38)
--- NOTE | 2017-05-09 16:54 | PN ---
Progress Note (short form) - Note Progress Note: Patient's Stool occult blood was positive and Nurse does report an episode of stool with dark blood earlier today. However, patient is hemodynamically stable. -Repeat CBC ordered -Heparin SQ stopped -Patient is up for transfer to telemetry -Will Contact PCP and consult GI
[2017-05-09 18:13] LABS: MCHC 32.6 g/dl (32.0-35.9); MEAN CELL VOLUME 92.1 fl (80-96); MEAN PLT VOLUME 8.4 fl (7.5-11.1); PLATELET COUNT 191 K/MM3 (134-434); RDW 17.4 % (11.9-15.9); WHITE BLOOD COUNT 11.3 K/mm3 (4.0-10.0)
[2017-05-09] MEDS: PANTOPRAZOLE SODIUM 80 MG in SODIUM CHLORIDE 100 ML IVPB SCH (20:55)
[2017-05-10] MEDS ORDERED: PT OWN MED DRAWER 7, Y5N ONE (01:46)
[2017-05-10] MEDS ORDERED: ceFAZolin SODIUM 1 GM VIAL ONE ×3 (02:05→18:00)
[2017-05-10] MEDS ORDERED: DEXTROSE 5%-WATER - 50 ML IVPB ONE ×3 (02:06→18:00)
[2017-05-10] MEDS: CEFAZOLIN 1 GM in DEXTROSE 5%-WATER - 50 ML IVPB SCH ×3 (02:15→18:30)
[2017-05-10] MEDS: FUROSEMIDE 40 MG/4 ML INJECTABLE VIAL IVPUSH SCH ×2 (05:08→14:09)
[2017-05-10] MEDS: PANTOPRAZOLE SODIUM 80 MG in SODIUM CHLORIDE 100 ML IVPB SCH ×2 (06:12→15:08)
[2017-05-10 09:01] LABS: MCHC 33.3 g/dl (32.0-35.9); MEAN CELL VOLUME 90.1 fl (80-96); MEAN PLT VOLUME 8.6 fl (7.5-11.1); PLATELET COUNT 202 K/MM3 (134-434); RDW 17.1 % (11.9-15.9)
[2017-05-10 09:33] LABS: ALBUMIN 2.5 g/dl (3.4-5.0); ANION GAP 10 (8-16); CALCIUM 8.6 mg/dL (8.5-10.1); CO2 25 mmol/L (21-32); GLUCOSE,RANDOM 91 mg/dL (74-106)
[2017-05-10 09:37] LABS: ALK PHOS 136 U/L (45-117); BILIRUBIN,TOTAL 0.6 mg/dL (0.2-1.0); CREATININE 3.3 mg/dL (0.7-1.3); PHOSPHOROUS 3.8 mg/dL (2.5-4.9); SGOT/AST 20 U/L (15-37); SGPT/ALT 15 U/L (12-78); TOT PROT 5.2 g/dl (6.4-8.2)
[2017-05-10 09:54] LABS: BASOPHIL (MANUAL) 1 % (0-2.0); PLATELET ESTIMATE ADEQUATE (NORMAL); TOTAL CELLS COUNTED 100
--- NOTE | 2017-05-10 11:21 | PN ---
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9 H D 13.0 H Now on clear liquid, nectar thick liquid diet r/o GIB. Pending GI note. RR much improved. Seems comfortable without expiratory wheeze today. Swallow reassessed with responsive cough on thin liquid. Continue nectar thick liquids due to strong suspicion for aspiration on thin liquid. Monitor congestion,temp,WBC,throat clearing, vocal wetness. Consider MBS, following w/u by GI.
--- NOTE | 2017-05-10 12:29 | PN ---
Progress Note (short form) - Note Progress Note: Renal follow up for SUZI Pt seen and examined at the bedside awake and alert reports being thirsty no sob, chest pain Vital Signs Temperature 98.4 F 05/10/17 10:00 Pulse Rate 63 05/10/17 11:39 Respiratory Rate 20 05/10/17 10:00 Blood Pressure 148/72 05/10/17 10:00 O2 Sat by Pulse Oximetry (%) 95 05/10/17 11:39 Intake & Output 05/07/17 05/08/17 05/09/17 05/10/17 23:59 23:59 23:59 23:59 Intake Total 379.8 1095 1290 980 Balance 379.8 1095 1290 980 Weight 185 lb 14.4 oz 173 lb 7 oz 164 lb 14.4 oz 171 lb 9.6 oz Gen: NAD, awake and alert CVS: RRR, No M/R Lungs: Dec BS at lung bases, no rales Abd: soft NT/ND Ext: + sacral edema, trace LE edema CBC, BMP 05/10/17 08:45 05/10/17 08:45 Current Medications Docusate Sodium (Colace -) 100 mg PO Q8H PRN PRN Reason: CONSTIPATION Furosemide (Lasix Injection -) 40 mg IVPUSH BID@0600,1400 [facility] Last Admin: 05/10/17 05:08 Dose: 40 mg Pantoprazole Sodium 80 mg/ (Sodium Chloride) 100 mls @ 10 mls/hr IVPB Q10H [facility] PRN Reason: 8 MG/HR Last Admin: 05/10/17 06:12 Dose: 10 mls/hr Cefazolin Sodium 1 gm/ (Dextrose) 50 mls @ 100 mls/hr IVPB Q8H-IV [facility] Last Admin: 05/10/17 10:24 Dose: 100 mls/hr A/P 86 year old gentleman with PMhx of CKD stage 4 (baseline Cr 2.1-2.6), CHF, Anemia, GI bleed, Hyperlipidiemia, Recent admission for hematuria who presented s/p fall with bradycardia, fluid overload and SUZI on CKD. #Acute on Chronic Renal insufficiency Etiology likely pre-renal secondary to cardio-renal syndrome vs. obstruction Renal function w/o significant change repeat renal and bladder US continue IV lasix for now as pt with with peripheral edema Trend BUN/Cr #Hypernatremia Continue oral free water as tolerated Trend na daily Thank you Teja Mercedes DO
--- NOTE | 2017-05-10 15:35 | PN ---
Progress Note, Physician Chief Complaint: Patient is more alert today. He is has occasional agitation. No acute distress. Tele shows sinus tachy and bradycardia. His heart rate variation is less. No severe bradycardia. No recurrent sinus arrest or pause in the past 24 hours. History of Present Illness: 86 year-old man NHR, HTN, CHF, CAD, JAQUELINE, schizophrenia & depression admitted with fall out of wheelchair with scalp laceration. He was hypothermic with rectal temp @ 91.5F, and a pulse of 35 w/ SBP in the 90's. He was given glucagon (On lopressor) & Started on TCP. He is receiving low dose dopamine in ICU. He has been treated for right leg cellulitis with marked improvement. Sinus tachy and bradycardia improved. - Current Medication List Current Medications: Active Medications Docusate Sodium (Colace -) 100 mg PO Q8H PRN PRN Reason: CONSTIPATION Furosemide (Lasix Injection -) 40 mg IVPUSH BID@0600,1400 [facility] Last Admin: 05/10/17 14:09 Dose: 40 mg Pantoprazole Sodium 80 mg/ (Sodium Chloride) 100 mls @ 10 mls/hr IVPB Q10H [facility] PRN Reason: 8 MG/HR Last Admin: 05/10/17 15:08 Dose: 10 mls/hr Cefazolin Sodium 1 gm/ (Dextrose) 50 mls @ 100 mls/hr IVPB Q8H-IV [facility] Last Admin: 05/10/17 10:24 Dose: 100 mls/hr Nystatin (Nystop Powder -) 1 applic TP DAILY [facility] - Objective Vital Signs: Vital Signs Temperature 98.4 F 05/10/17 14:25 Pulse Rate 79 05/10/17 14:25 Respiratory Rate 22 05/10/17 14:25 Blood Pressure 161/57 05/10/17 14:25 O2 Sat by Pulse Oximetry (%) 95 05/10/17 11:39 Constitutional: Yes: Well Nourished, No Distress Eyes: Yes: Conjunctiva Clear, EOM Intact Neck: Yes: Supple, Trachea Midline Cardiovascular: Yes: Regular Rate and Rhythm, Bradycardia, Tachycardia Respiratory: Yes: Regular, Wheezes Gastrointestinal: Yes: Normal Bowel Sounds, Soft ...Rectal Exam: Yes: Deferred Edema: No (Erythema resolved.) Labs: CBC, BMP 05/10/17 08:45 05/10/17 08:45 INR, PTT INR 1.03 (0.82-1.09) 05/06/17 05:15 Assessment/Plan Sick sinus syndrome: sinus tachy-mckinley with evidence of sinus arrest and juctional escape rhythm. Heart rate improved with less severe bradycardia. Hypothermia resolved and beta hasmukh stopped. Permanent pacemaker implantation is indicated. Could wait for Dr. Dooley's evaluation next week. Continue tele monitor. Continue IV Abx for leg cellulitis. Hold all SA and AV micha active agents. May change IV Lasix to PO 40 mg daily. GI consult appreciated. Monitor CBC.
--- NOTE | 2017-05-10 15:53 | PN ---
Progress Note, Physician Chief Complaint: Patient asking if he can have the vest taken off, but otherwise he says he is doing well. He denies cp, sob, n/v. - Current Medication List Current Medications: Active Medications Docusate Sodium (Colace -) 100 mg PO Q8H PRN PRN Reason: CONSTIPATION Furosemide (Lasix Injection -) 40 mg IVPUSH BID@0600,1400 CINTHYA Last Admin: 05/10/17 14:09 Dose: 40 mg Pantoprazole Sodium 80 mg/ (Sodium Chloride) 100 mls @ 10 mls/hr IVPB Q10H CINTHYA PRN Reason: 8 MG/HR Last Admin: 05/10/17 15:08 Dose: 10 mls/hr Cefazolin Sodium 1 gm/ (Dextrose) 50 mls @ 100 mls/hr IVPB Q8H-IV CINTHYA Last Admin: 05/10/17 10:24 Dose: 100 mls/hr Nystatin (Nystop Powder -) 1 applic TP DAILY [facility] - Objective Vital Signs: Vital Signs Temperature 36.9 C 05/10/17 14:25 Pulse Rate 79 05/10/17 14:25 Respiratory Rate 22 05/10/17 14:25 Blood Pressure 161/57 05/10/17 14:25 O2 Sat by Pulse Oximetry (%) 95 05/10/17 11:39 Constitutional: Yes: Well Nourished, No Distress, Calm Cardiovascular: Yes: Regular Rate and Rhythm. No: Gallop, Murmur, Rub Respiratory: Yes: Regular, CTA Bilaterally. No: Rales, Rhonchi, Wheezes Gastrointestinal: Yes: Normal Bowel Sounds, Soft. No: Distention, Tenderness Extremities: Yes: Erythema (unchanged) Edema: No Labs: CBC, BMP 05/10/17 08:45 05/10/17 08:45 INR, PTT INR 1.03 (0.82-1.09) 05/06/17 05:15 Problem List - Problems (1) Bradycardia Code(s): R00.1 - BRADYCARDIA, UNSPECIFIED (2) Hypothermia Code(s): T68.XXXA - HYPOTHERMIA, INITIAL ENCOUNTER (3) Renal failure (ARF), acute on chronic Code(s): N17.9 - ACUTE KIDNEY FAILURE, UNSPECIFIED N18.9 - CHRONIC KIDNEY DISEASE, UNSPECIFIED (4) Hyperkalemia Code(s): E87.5 - HYPERKALEMIA (5) Anemia Code(s): D64.9 - ANEMIA, UNSPECIFIED Qualifiers: Qualified Code(s): D64.9 - Anemia, unspecified (6) CAD (coronary artery disease) Code(s): I25.10 - ATHSCL HEART DISEASE OF [place] CORONARY ARTERY W/O ANG PCTRS (7) CHF (congestive heart failure) Code(s): I50.9 - HEART FAILURE, UNSPECIFIED Qualifiers: Qualified Code(s): I50.9 - Heart failure, unspecified (8) Dementia Code(s): F03.90 - UNSPECIFIED DEMENTIA WITHOUT BEHAVIORAL DISTURBANCE (9) HTN (hypertension) Code(s): I10 - ESSENTIAL (PRIMARY) HYPERTENSION Assessment/Plan (1) Bradycardia Assessment/Plan: -resolved -off dopamine gtt -cardiology following -? transfer to [facility] for pacemaker placement Code(s): R00.1 - BRADYCARDIA, UNSPECIFIED (2) Hypothermia Assessment/Plan: -resolved -suspect secondary to bradycardia Code(s): T68.XXXA - HYPOTHERMIA, INITIAL ENCOUNTER (3) Renal failure (ARF), acute on chronic Assessment/Plan: -appreciate nephrology and urology assistance -stable -continue lasix as patient is third spacing Code(s): N17.9 - ACUTE KIDNEY FAILURE, UNSPECIFIED N18.9 - CHRONIC KIDNEY DISEASE, UNSPECIFIED (4) Hyperkalemia Assessment/Plan: -resolved Code(s): E87.5 - HYPERKALEMIA (5) Anemia Assessment/Plan: -multifactorial -AOCD and GIB with ABLA -GI following -on protonix gtt Code(s): D64.9 - ANEMIA, UNSPECIFIED Qualifiers: Anemia type: unspecified type Qualified Code(s): D64.9 - Anemia, unspecified (6) CAD (coronary artery disease) Assessment/Plan: -cardiology following Code(s): I25.10 - ATHSCL HEART DISEASE OF [place] CORONARY ARTERY W/O ANG PCTRS (7) CHF (congestive heart failure) Assessment/Plan: -continue lasix -improving chest x-ray Code(s): I50.9 - HEART FAILURE, UNSPECIFIED Qualifiers: Congestive heart failure type: unspecified congestive heart failure type Congestive heart failure chronicity: chronic Qualified Code(s): I50.9 - Heart failure, unspecified (8) Dementia Assessment/Plan: -patient is close to baseline -continue current management Code(s): F03.90 - UNSPECIFIED DEMENTIA WITHOUT BEHAVIORAL DISTURBANCE (9) HTN (hypertension) Assessment/Plan: -off dopamine gtt -monitor Code(s): I10 - ESSENTIAL (PRIMARY) HYPERTENSION (10) Hypernatremia -continue free water (11) Leukocytosis -continue empiric ancef -monitor
--- NOTE | 2017-05-10 15:56 | PN ---
Progress Note (short form) - Note Progress Note: No acute events overnight. Denies CP or SOB. Intake & Output 05/07/17 05/08/17 05/09/17 05/10/17 23:59 23:59 23:59 23:59 Intake Total 379.8 1095 1290 1220 Balance 379.8 1095 1290 1220 Weight 185 lb 14.4 oz 173 lb 7 oz 164 lb 14.4 oz 171 lb 9.6 oz Last Vital Signs Temp Pulse Resp BP Pulse Ox 98.4 F 79 22 161/57 95 05/10/17 14:25 05/10/17 14:25 05/10/17 14:25 05/10/17 14:25 05/10/17 11:39 Active Medications Docusate Sodium (Colace -) 100 mg PO Q8H PRN PRN Reason: CONSTIPATION Furosemide (Lasix Injection -) 40 mg IVPUSH BID@0600,1400 CINTHYA Last Admin: 05/10/17 14:09 Dose: 40 mg Pantoprazole Sodium 80 mg/ (Sodium Chloride) 100 mls @ 10 mls/hr IVPB Q10H CINTHYA PRN Reason: 8 MG/HR Last Admin: 05/10/17 15:08 Dose: 10 mls/hr Cefazolin Sodium 1 gm/ (Dextrose) 50 mls @ 100 mls/hr IVPB Q8H-IV CINTHYA Last Admin: 05/10/17 10:24 Dose: 100 mls/hr Nystatin (Nystop Powder -) 1 applic TP DAILY CINTHYA Gen: More alert, confused Heart: RRR Lung: decreased breath sounds at the bases Abd: soft, nontender Ext: less edema Laboratory Results - last 24 hr 05/05/17 05/09/17 05/09/17 18:30 17:00 20:00 WBC 11.3 H RBC 2.47 L Hgb 7.4 L Hct 22.7 L MCV 92.1 MCH 30.0 MCHC 32.6 RDW 17.4 H Plt Count 191 MPV 8.4 Total Counted Neutrophils % Neutrophils % (Manual) Band Neuts % (Manual) Lymphocytes % Lymphocytes % (Manual) Eosinophils % (Manual) Basophils % (Manual) Platelet Estimate Sodium Potassium Chloride Carbon Dioxide Anion Gap BUN Creatinine Creat Clearance w eGFR Random Glucose Calcium Phosphorus Magnesium Total Bilirubin AST ALT Alkaline Phosphatase Total Protein Albumin Blood Type B NEGATIVE B NEGATIVE Antibody Screen Negative Negative Crossmatch See Detail See Detail 05/10/17 05/10/17 08:45 08:45 WBC 13.0 H RBC 3.42 L D Hgb 10.2 L D Hct 30.8 L D MCV 90.1 MCH 30.0 MCHC 33.3 RDW 17.1 H Plt Count 202 MPV 8.6 Total Counted 100 Neutrophils % No Result Required. Neutrophils % (Manual) 88 H Band Neuts % (Manual) 4 Lymphocytes % No Result Required. Lymphocytes % (Manual) 5 L D Eosinophils % (Manual) 2 Basophils % (Manual) 1 Platelet Estimate Adequate Sodium 148 H Potassium 3.9 Chloride 113 H Carbon Dioxide 25 Anion Gap 10 BUN 70 H Creatinine 3.3 H Creat Clearance w eGFR 17.82 Random Glucose 91 Calcium 8.6 Phosphorus 3.8 D Magnesium 2.0 Total Bilirubin 0.6 D AST 20 ALT 15 D Alkaline Phosphatase 136 H Total Protein 5.2 L Albumin 2.5 L Blood Type Antibody Screen Crossmatch ASSESSMENT AND PLAN: Bradycardia improving Hypothermia resolved Acute on Chronic Renal Failure Anemia CAD LV Systolic Dysfunction Pulmonary HTN Aortic Stenosis HTN Schizophrenia Depression - Continue to hold all rate controlling agents - transfuse if Hgb <7 - monitor H/H - continue lasix - PO as tolerated - aspiration precautions - DVT prophylaxis - Telemetry monitoring Dr Burdick
[2017-05-10] MEDS: NYSTATIN POWDER 100,000 UNITS/GM - 15 GM TOPICAL POWDER TP SCH (18:32)
--- NOTE | 2017-05-10 19:58 | CON.GI ---
Consult Consult Specialty:: GASTROENTEROLOGY - History of Present Illness Chief Complaint: ANEMIA History of Present Illness: 86 YEAR OLD MALE WITH HISTORY OF DEMENTIA AND PEPTIC ULCER DISEASE TRANSFERRED FROM ICU. PATIENT HAD SEVERE ANEMA WITH GUAIAC +_ STOOL 5 DAYS AGO. HIS ICU ADMISSION WAS FOR BRADYCARDIA. HE WAS TRANSFUSED . HE WAS DISCHARGED FROM ICU YESTERDAY WITH FURHTER DROP IN HGB AND FURTHER GUAIAC + STOOL. HE WAS NOT TRANSFUSED OR STARTED ON IV PROTONIX DRIP. CONSULT WAS CALLED. HE WAS TRANSFUSED AND STARTED ON DRIP. 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 duo bx neg) - Alcohol/Substance Use Hx Alcohol Use: No - Smoking History Smoking history: Unknown if ever smoked Have you smoked in the past 12 months: No Aproximately how many cigarettes per day: 15 If you are a former smoker, when did you quit?: does not remember - Social History Usual Living Arrangement: Alone ADL: Support Services History of Recent Travel: No Home Medications - Allergies Allergies/Adverse Reactions: Allergies Allergy/AdvReac Type Severity Reaction Status Date / Time No Known Drug Allergies Allergy Verified 05/05/17 18:43 - Home Medications Home Medications: Ambulatory Orders Acetaminophen [Tylenol] 650 mg PO DAILY 04/05/17 Amlodipine Besylate 10 mg PO DAILY 04/05/17 Ascorbate Calcium [Vitamin C] 500 mg PO BID 04/05/17 Cilostazol 100 mg PO BID 04/05/17 Docusate Sodium [Colace -] 100 mg PO HS 04/05/17 Escitalopram Oxalate [Lexapro -] 20 mg PO DAILY 04/05/17 Ferrous Sulfate 325 mg PO BID 04/05/17 Krill Oil/[place]-3/Dha/Epa [[place]-3 Krill Oil Softgel] 1 each PO DAILY 04/05/17 Metoprolol Succinate [Toprol XL -] 25 mg PO DAILY 04/05/17 Multivitamin [One Daily] 1 each PO DAILY 04/05/17 Olanzapine 7.5 mg PO DAILY 04/05/17 Perphenazine [Trilafon -] 0.5 mg PO DAILY 04/05/17 Petrolatum,White/Lanolin [Vitamin A & D Ointment] 454 gm TP BID 04/05/17 Ranitidine [Zantac -] 150 mg PO BID 04/05/17 Tamsulosin HCl [Flomax] 0.4 mg PO DAILY 04/05/17 Furosemide [Lasix -] 40 mg PO BID@0600,1400 tablet 04/25/17 Family Disease History - Family Disease History Family History: Unable to Obtain Review of Systems Unable to obtain ROS, reason: DEMENTIA Physical Exam-GI Vital Signs: Vital Signs Temperature 97.9 F 05/10/17 16:00 Pulse Rate 66 05/10/17 16:00 Respiratory Rate 22 05/10/17 16:00 Blood Pressure 148/61 05/10/17 16:00 O2 Sat by Pulse Oximetry (%) 95 05/10/17 11:39 Constitutional: Yes: No Distress, Calm Eyes: Yes: Conjunctiva Clear HENT: Yes: Normocephalic Neck: Yes: Supple Cardiovascular: Yes: Pulse Irregular, Murmur Respiratory: Yes: Rhonchi, Wheezes Gastrointestinal Inspection: Yes: WNL ...Auscultate: Yes: Normoactive Bowel Sounds ...Palpate: Yes: Soft Extremities: Yes: WNL Labs: CBC, BMP 05/10/17 08:45 05/10/17 08:45 INR, PTT INR 1.03 (0.82-1.09) 05/06/17 05:15 Problem List - Problems (1) Blood loss anemia Code(s): D50.0 - IRON DEFICIENCY ANEMIA SECONDARY TO BLOOD LOSS (CHRONIC) (2) Bradycardia Assessment/Plan: PATIENT WITH HISTORY OF PEPTIC ULCER DISEASE. GIVEN CURRENT CLINICAL CONDITION( BRADYCARDIA/DEMENTIA/WHEEZING) HE IS A HIGH RISK FOR COMPLICATIONS DURING ENDOSCOPY WILL TREAT THIS CONSERVATIVELY-- NO ANTICOAG/NO NSAIDS, CONTINUE IV PROTONIX AND TRANSFUSE NEEDED KATHERINE BENNETT MD Code(s): R00.1 - BRADYCARDIA, UNSPECIFIED (3) CAD (coronary artery disease) Code(s): I25.10 - ATHSCL HEART DISEASE OF [place] CORONARY ARTERY W/O ANG PCTRS (4) CHF (congestive heart failure) Code(s): I50.9 - HEART FAILURE, UNSPECIFIED Qualifiers: Congestive heart failure type: unspecified congestive heart failure type Congestive heart failure chronicity: chronic Qualified Code(s): I50.9 - Heart failure, unspecified (5) Dementia Code(s): F03.90 - UNSPECIFIED DEMENTIA WITHOUT BEHAVIORAL DISTURBANCE (6) Renal failure (ARF), acute on chronic Code(s): N17.9 - ACUTE KIDNEY FAILURE, UNSPECIFIED N18.9 - CHRONIC KIDNEY DISEASE, UNSPECIFIED
[2017-05-10] MEDS ORDERED: ALBUTEROL SO4 0.083% IH SOL 2.5 MG/3 ML VIAL.NEB. NEB ONE (20:46)
[2017-05-11] MEDS ORDERED: ceFAZolin SODIUM 1 GM VIAL ONE ×2 (02:11→08:52)
[2017-05-11] MEDS ORDERED: DEXTROSE 5%-WATER - 50 ML IVPB ONE ×2 (02:11→08:53)
[2017-05-11] MEDS: CEFAZOLIN 1 GM in DEXTROSE 5%-WATER - 50 ML IVPB SCH ×2 (02:31→08:59)
[2017-05-11] MEDS: PANTOPRAZOLE SODIUM 80 MG in SODIUM CHLORIDE 100 ML IVPB SCH ×2 (02:32→13:00)
[2017-05-11] MEDS: FUROSEMIDE 40 MG/4 ML INJECTABLE VIAL IVPUSH SCH (05:53)
[2017-05-11 08:35] LABS: BASOPHIL 0.8 % (0-2.0); EOSINOPHIL 0.2 % (0-4.5); MCH 30.2 pg (25.7-33.7); MCHC 33.5 g/dl (32.0-35.9); MEAN CELL VOLUME 90.1 fl (80-96); MEAN PLT VOLUME 8.7 fl (7.5-11.1); PLATELET COUNT 227 K/MM3 (134-434); RDW 17.6 % (11.9-15.9)
[2017-05-11] MEDS: NYSTATIN POWDER 100,000 UNITS/GM - 15 GM TOPICAL POWDER TP SCH (08:59)
[2017-05-11 09:15] LABS: ANION GAP 11 (8-16); CALCIUM 8.9 mg/dL (8.5-10.1); CO2 27 mmol/L (21-32); CREATININE 3.4 mg/dL (0.7-1.3); GLUCOSE,RANDOM 101 mg/dL (74-106); MAGNESIUM 1.8 mg/dL (1.8-2.4); PHOSPHOROUS 4.7 mg/dL (2.5-4.9)
--- NOTE | 2017-05-11 10:56 | PN ---
Progress Note, PLACEMENT OFFICER - Note Progress Note: Selected Entries 05/10/17 05/11/17 05/11/17 14:25 02:00 05:54 Breakfast Lunch 100% Temperature 97.6 F 98.0 F 05/11/17 09:00 Breakfast 75% Lunch Temperature Laboratory Tests 05/11/17 07:35 WBC 16.0 H GI consult reviewed. Pt upgraded to full fluids/nectar thick liquid. Monitor PO tolerance. Aspiration suspected on thin liquid.
--- NOTE | 2017-05-11 11:45 | PN ---
Progress Note, Physician Chief Complaint: Mr Reynoso says he is feeling fine today. No cp, sob, n/v. - Current Medication List Current Medications: Active Medications Docusate Sodium (Colace -) 100 mg PO Q8H PRN PRN Reason: CONSTIPATION Furosemide (Lasix Injection -) 40 mg IVPUSH BID@0600,1400 CINTHYA Last Admin: 05/11/17 05:53 Dose: 40 mg Pantoprazole Sodium 80 mg/ (Sodium Chloride) 100 mls @ 10 mls/hr IVPB Q10H CINTHYA PRN Reason: 8 MG/HR Last Admin: 05/11/17 02:32 Dose: 10 mls/hr Cefazolin Sodium 1 gm/ (Dextrose) 50 mls @ 100 mls/hr IVPB Q8H-IV CINTHYA Last Admin: 05/11/17 08:59 Dose: 100 mls/hr Nystatin (Nystop Powder -) 1 applic TP DAILY CINTHYA Last Admin: 05/11/17 08:59 Dose: 1 applic - Objective Vital Signs: Vital Signs Temperature 37.1 C 05/11/17 09:00 Pulse Rate 65 05/11/17 09:00 Respiratory Rate 18 05/11/17 09:00 Blood Pressure 158/52 05/11/17 09:00 O2 Sat by Pulse Oximetry (%) 98 05/11/17 09:00 Constitutional: Yes: Well Nourished, No Distress, Calm Cardiovascular: Yes: Regular Rate and Rhythm. No: Gallop, Murmur, Rub Respiratory: Yes: Regular, CTA Bilaterally. No: Rales, Rhonchi, Wheezes Gastrointestinal: Yes: Normal Bowel Sounds, Soft. No: Distention, Tenderness Extremities: Yes: Erythema (improved) Edema: No Labs: CBC, BMP 05/11/17 07:35 05/11/17 07:35 INR, PTT INR 1.03 (0.82-1.09) 05/06/17 05:15 Problem List - Problems (1) Bradycardia Code(s): R00.1 - BRADYCARDIA, UNSPECIFIED (2) Hypothermia Code(s): T68.XXXA - HYPOTHERMIA, INITIAL ENCOUNTER (3) Renal failure (ARF), acute on chronic Code(s): N17.9 - ACUTE KIDNEY FAILURE, UNSPECIFIED N18.9 - CHRONIC KIDNEY DISEASE, UNSPECIFIED (4) Hyperkalemia Code(s): E87.5 - HYPERKALEMIA (5) Anemia Code(s): D64.9 - ANEMIA, UNSPECIFIED Qualifiers: 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 Code(s): D50.0 - Iron deficiency anemia secondary to blood loss (chronic) (6) CAD (coronary artery disease) Code(s): I25.10 - ATHSCL HEART DISEASE OF [place] CORONARY ARTERY W/O ANG PCTRS (7) CHF (congestive heart failure) Code(s): I50.9 - HEART FAILURE, UNSPECIFIED Qualifiers: Congestive heart failure type: diastolic Congestive heart failure chronicity: chronic Qualified Code(s): I50.32 - Chronic diastolic ( congestive) heart failure (8) Dementia Code(s): F03.90 - UNSPECIFIED DEMENTIA WITHOUT BEHAVIORAL DISTURBANCE (9) HTN (hypertension) Code(s): I10 - ESSENTIAL (PRIMARY) HYPERTENSION Assessment/Plan (1) Bradycardia Assessment/Plan: -resolved -off dopamine gtt -cardiology following -? transfer to [facility] for pacemaker placement Code(s): R00.1 - BRADYCARDIA, UNSPECIFIED (2) Hypothermia Assessment/Plan: -resolved -suspect secondary to bradycardia Code(s): T68.XXXA - HYPOTHERMIA, INITIAL ENCOUNTER (3) Renal failure (ARF), acute on chronic Assessment/Plan: -nephrology following -stable this admission but increased from last -on lasix, has history of CHF and third spacing -? if at new baseline Code(s): N17.9 - ACUTE KIDNEY FAILURE, UNSPECIFIED N18.9 - CHRONIC KIDNEY DISEASE, UNSPECIFIED (4) Hyperkalemia Assessment/Plan: -resolved Code(s): E87.5 - HYPERKALEMIA (5) Anemia Assessment/Plan: -multifactorial -AOCD and GIB with CBLA -GI following -on protonix gtt -conservative management Code(s): D64.9 - ANEMIA, UNSPECIFIED Qualifiers: Anemia type: unspecified type Qualified Code(s): D64.9 - Anemia, unspecified (6) CAD (coronary artery disease) Assessment/Plan: -cardiology following Code(s): I25.10 - ATHSCL HEART DISEASE OF [place] CORONARY ARTERY W/O ANG PCTRS (7) CHF (congestive heart failure) Assessment/Plan: -continue lasix -improving chest x-ray Code(s): I50.9 - HEART FAILURE, UNSPECIFIED Qualifiers: Congestive heart failure type: unspecified congestive heart failure type Congestive heart failure chronicity: chronic Qualified Code(s): I50.9 - Heart failure, unspecified (8) Dementia Assessment/Plan: -patient is close to baseline -continue current management Code(s): F03.90 - UNSPECIFIED DEMENTIA WITHOUT BEHAVIORAL DISTURBANCE (9) HTN (hypertension) Assessment/Plan: -off dopamine gtt -monitor Code(s): I10 - ESSENTIAL (PRIMARY) HYPERTENSION (10) Hypernatremia -continue free water -nephrology managing (11) Leukocytosis -worsening -however erythema improved from yesterday -consult ID -patient with several bowel movements, will check for c diff as is high risk
[2017-05-11] MEDS ORDERED: DOCUSATE SODIUM 100 MG CAPSULE (FP) PO PRN (12:24)
--- NOTE | 2017-05-11 12:54 | PN ---
Progress Note (short form) - Note Progress Note: Renal follow up for SUZI Pt seen and examined at the bedside sleeping but arouseable no overnight events in posy vest making urine as per nursing staff has loose stools this am Vital Signs Temperature 98.8 F 05/11/17 09:00 Pulse Rate 65 05/11/17 09:00 Respiratory Rate 18 05/11/17 09:00 Blood Pressure 158/52 05/11/17 09:00 O2 Sat by Pulse Oximetry (%) 98 05/11/17 09:00 Intake & Output 05/08/17 05/09/17 05/10/17 05/11/17 23:59 23:59 23:59 23:59 Intake Total 1095 1290 1260 130 Balance 1095 1290 1260 130 Weight 173 lb 7 oz 164 lb 14.4 oz 171 lb 9.6 oz Gen: NAD, awake and alert CVS: RRR, No M/R Lungs: Dec BS at lung bases, no rales Abd: soft NT/ND Ext: + sacral edema, trace LE edema CBC, BMP 05/11/17 07:35 05/11/17 07:35 Current Medications Docusate Sodium (Colace -) 100 mg PO Q8H PRN PRN Reason: CONSTIPATION Furosemide (Lasix -) 40 mg PO DAILY CINTHYA Pantoprazole Sodium 80 mg/ (Sodium Chloride) 100 mls @ 10 mls/hr IVPB Q10H CINTHYA PRN Reason: 8 MG/HR Last Admin: 05/11/17 02:32 Dose: 10 mls/hr Cefazolin Sodium 1 gm/ (Dextrose) 50 mls @ 100 mls/hr IVPB Q8H-IV CINTHYA Last Admin: 05/11/17 08:59 Dose: 100 mls/hr Nystatin (Nystop Powder -) 1 applic TP DAILY CINTHYA Last Admin: 05/11/17 08:59 Dose: 1 applic A/P 86 year old gentleman with PMhx of CKD stage 4 (baseline Cr 2.1-2.6), CHF, Anemia, GI bleed, Hyperlipidiemia, Recent admission for hematuria who presented s/p fall with bradycardia, fluid overload and SUZI on CKD. #Acute on Chronic Renal insufficiency Renal function w/o significant improvement in the last 3 days on IV Lasix however volume status appears better as edema has improved will D/C IV lasix as start Lasix PO 40mg once daily Check CXR in AM to access for pulmonary congestion Repeat Us done of the kidney and bladder showed no obstruction Trend BUN/cr daily no indication for WELT STITCHER #Hypernatremia Continue oral free water as tolerated expect improvement with decrease in IV diuretics Thank you Teja Mercedes DO
[2017-05-11] MEDS ORDERED: FUROSEMIDE 40 MG/4 ML INJECTABLE VIAL IVPUSH SCH (14:00)
--- NOTE | 2017-05-11 14:08 | PN ---
Progress Note, Physician Chief Complaint: Patient is lethargic. No acute distress. Tele shows sinus periords of sinus bradycardia, no pauses longer than 3 seconds. Less sinus tachycardia. His heart rate variation is less. History of Present Illness: 86 year-old man NHR, HTN, CHF, CAD, JAQUELINE, schizophrenia & depression admitted with fall out of wheelchair with scalp laceration. He was hypothermic with rectal temp @ 91.5F, and a pulse of 35 w/ SBP in the 90's. He was given glucagon (On lopressor) & Started on TCP. He is receiving low dose dopamine in ICU. He has been treated for right leg cellulitis with marked improvement. Sinus tachy and bradycardia improved. Pacemaker implantation is indicated for sick sinus syndrome. Positive C. diff in stool noted. - Current Medication List Current Medications: Active Medications Docusate Sodium (Colace -) 100 mg PO Q8H PRN PRN Reason: CONSTIPATION Furosemide (Lasix -) 40 mg PO DAILY CINTHYA Pantoprazole Sodium 80 mg/ (Sodium Chloride) 100 mls @ 10 mls/hr IVPB Q10H CINTHYA PRN Reason: 8 MG/HR Last Admin: 05/11/17 02:32 Dose: 10 mls/hr Cefazolin Sodium 1 gm/ (Dextrose) 50 mls @ 100 mls/hr IVPB Q8H-IV CINTHYA Last Admin: 05/11/17 08:59 Dose: 100 mls/hr Nystatin (Nystop Powder -) 1 applic TP DAILY CINTHYA Last Admin: 05/11/17 08:59 Dose: 1 applic - Objective Vital Signs: Vital Signs Temperature 98.8 F 05/11/17 09:00 Pulse Rate 65 05/11/17 09:00 Respiratory Rate 18 05/11/17 09:00 Blood Pressure 158/52 05/11/17 09:00 O2 Sat by Pulse Oximetry (%) 98 05/11/17 09:00 Constitutional: Yes: Well Nourished, No Distress Eyes: Yes: Conjunctiva Clear HENT: Yes: Normocephalic, Other (Scalp laceration healed.) Neck: Yes: Supple, Trachea Midline Cardiovascular: Yes: Regular Rate and Rhythm, Bradycardia, Murmur Respiratory: Yes: Regular, Wheezes Gastrointestinal: Yes: Normal Bowel Sounds, Soft ...Rectal Exam: Yes: Deferred Extremities: Yes: Other (Right leg erythma improved.) Edema: No Edema: LLE: Trace, RLE: Trace Labs: CBC, BMP 05/11/17 07:35 05/11/17 07:35 INR, PTT INR 1.03 (0.82-1.09) 05/06/17 05:15 Assessment/Plan Sick sinus syndrome: sinus tachy-mckinley with evidence of sinus arrest and junctional escape rhythm. Heart rate improved with less severe bradycardia. Hypothermia resolved and beta hasmukh stopped. Permanent pacemaker implantation is indicated for sick sinus syndrome. His rapid heart beats can be controlled with beta hasmukh after PPM. Could wait for Dr. Dooley's evaluation next week. Continue tele monitor. Continue IV Abx for leg cellulitis. Hold all SA and AV micha active agents. Continue Lasix to PO 40 mg daily. GI consult appreciated. Monitor CBC.
--- NOTE | 2017-05-11 16:54 | CON.ID ---
Consult Consult Specialty:: infectious diseases Reason for Consultation:: leukocytosis - History of Present Illness Chief Complaint: weakness History of Present Illness: 86 y/o man ([facility] Resident), w/ HTN, CHF, CAD, JAQUELINE, schizophrenia, & depression BIBA for eval 2/2 fall out of W/C. A/p EMS the patient fell out of his w/c @ [facility] correction in the dining alberto. The fall was unwitnessed. The patient hit his head & presents w/ a minor head lack --> forhead. In ED pt notable for a rectal temp @ 91.5F, and a pulse of 35 w/ SBP in the 90's. NCHCT: Negative. Pt given glucagon (On lopressor) & Started on TCP. Pt admitted now to the ICU for symptomatic Jony m/l 2/2 BB toxiciy. 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 duo bx neg) - Alcohol/Substance Use Hx Alcohol Use: No - Smoking History Smoking history: Unknown if ever smoked Have you smoked in the past 12 months: No Aproximately how many cigarettes per day: 15 If you are a former smoker, when did you quit?: does not remember - Social History Usual Living Arrangement: Alone ADL: Support Services History of Recent Travel: No Home Medications - Allergies Allergies/Adverse Reactions: Allergies Allergy/AdvReac Type Severity Reaction Status Date / Time No Known Drug Allergies Allergy Verified 05/05/17 18:43 - Home Medications Home Medications: Ambulatory Orders Acetaminophen [Tylenol] 650 mg PO DAILY 04/05/17 Amlodipine Besylate 10 mg PO DAILY 04/05/17 Ascorbate Calcium [Vitamin C] 500 mg PO BID 04/05/17 Cilostazol 100 mg PO BID 04/05/17 Docusate Sodium [Colace -] 100 mg PO HS 04/05/17 Escitalopram Oxalate [Lexapro -] 20 mg PO DAILY 04/05/17 Ferrous Sulfate 325 mg PO BID 04/05/17 Krill Oil/[place]-3/Dha/Epa [[place]-3 Krill Oil Softgel] 1 each PO DAILY 04/05/17 Metoprolol Succinate [Toprol XL -] 25 mg PO DAILY 04/05/17 Multivitamin [One Daily] 1 each PO DAILY 04/05/17 Olanzapine 7.5 mg PO DAILY 04/05/17 Perphenazine [Trilafon -] 0.5 mg PO DAILY 04/05/17 Petrolatum,White/Lanolin [Vitamin A & D Ointment] 454 gm TP BID 04/05/17 Ranitidine [Zantac -] 150 mg PO BID 04/05/17 Tamsulosin HCl [Flomax] 0.4 mg PO DAILY 04/05/17 Furosemide [Lasix -] 40 mg PO BID@0600,1400 tablet 04/25/17 Review of Systems - Review of Systems Constitutional: reports: No Symptoms Eyes: reports: No Symptoms HENT: reports: No Symptoms Neck: reports: No Symptoms Cardiovascular: reports: No Symptoms Respiratory: reports: No Symptoms Gastrointestinal: reports: Diarrhea Genitourinary: reports: No Symptoms Breasts: reports: No Symptoms Reported Musculoskeletal: reports: No Symptoms Neurological: reports: No Symptoms Endocrine: reports: No Symptoms Hematology/Lymphatic: reports: No Symptoms Psychiatric: reports: No Symptoms Physical Exam Vital Signs: Vital Signs Temperature 98.6 F 05/11/17 14:00 Pulse Rate 74 05/11/17 14:00 Respiratory Rate 18 05/11/17 14:00 Blood Pressure 155/71 05/11/17 14:00 O2 Sat by Pulse Oximetry (%) 98 05/11/17 09:00 Constitutional: Yes: No Distress, Calm HENT: Yes: Atraumatic Neck: Yes: Supple Cardiovascular: Yes: S1, S2 Respiratory: Yes: Regular, Rhonchi Gastrointestinal: Yes: Normal Bowel Sounds, Soft Extremities: Yes: Erythema (bilateral) Integumentary: Yes: Erythema Neurological: Yes: Alert, Other Psychiatric: Yes: Alert Labs: CBC, BMP 05/11/17 07:35 05/11/17 07:35 Assessment/Plan Problem List - Problems (1) Bradycardia Code(s): R00.1 - BRADYCARDIA, UNSPECIFIED (2) Hypothermia Code(s): T68.XXXA - HYPOTHERMIA, INITIAL ENCOUNTER (3) Renal failure (ARF), acute on chronic Code(s): N17.9 - ACUTE KIDNEY FAILURE, UNSPECIFIED N18.9 - CHRONIC KIDNEY DISEASE, UNSPECIFIED (4) Hyperkalemia Code(s): E87.5 - HYPERKALEMIA (5) Anemia Code(s): D64.9 - ANEMIA, UNSPECIFIED Qualifiers: 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 Code(s): D50.0 - Iron deficiency anemia secondary to blood loss (chronic) (6) CAD (coronary artery disease) Code(s): I25.10 - ATHSCL HEART DISEASE OF [place] CORONARY ARTERY W/O ANG PCTRS (7) CHF (congestive heart failure) Code(s): I50.9 - HEART FAILURE, UNSPECIFIED Qualifiers: Congestive heart failure type: diastolic Congestive heart failure chronicity: chronic Qualified Code(s): I50.32 - Chronic diastolic ( congestive) heart failure (8) Dementia Code(s): F03.90 - UNSPECIFIED DEMENTIA WITHOUT BEHAVIORAL DISTURBANCE (9) HTN (hypertension) Code(s): I10 - ESSENTIAL (PRIMARY) HYPERTENSION 10 leukocytosis 11 cdiff plan stopped cefazolin started patient on oral vanco will watch the legs if worsen will restart abx rest as per primary team
[2017-05-11] MEDS: VANCOMYCIN 250 MG/5 ML ORAL SOLUTION PO SCH (18:35)
[2017-05-11] MEDS ORDERED: PT OWN MED DRAWER 7, Y5N ONE (20:53)
[2017-05-12] MEDS: PANTOPRAZOLE SODIUM 80 MG in SODIUM CHLORIDE 100 ML IVPB SCH ×3 (00:38→18:29)
[2017-05-12] MEDS: VANCOMYCIN 250 MG/5 ML ORAL SOLUTION PO SCH ×4 (00:38→17:05)
--- NOTE | 2017-05-12 07:08 | PN ---
Progress Note (short form) - Note Progress Note: Renal follow up for SUZI Pt seen and examined at the bedside sleeping but awakens to verbal stimuli lethargic no sob, chest pain, abd pain Vital Signs Temperature 97.9 F 05/12/17 05:50 Pulse Rate 69 05/12/17 05:50 Respiratory Rate 18 05/12/17 05:50 Blood Pressure 165/67 05/12/17 05:50 O2 Sat by Pulse Oximetry (%) 98 05/11/17 21:00 Intake & Output 05/09/17 05/10/17 05/11/17 05/12/17 23:59 23:59 23:59 23:59 Intake Total 1290 1260 230 Balance 1290 1260 230 Weight 164 lb 14.4 oz 171 lb 9.6 oz Gen: NAD, awake and alert CVS: RRR, No M/R Lungs: Dec BS at lung bases, no rales Abd: soft NT/ND Ext: no edema todays labs pending Current Medications Docusate Sodium (Colace -) 100 mg PO Q8H PRN PRN Reason: CONSTIPATION Pantoprazole Sodium 80 mg/ (Sodium Chloride) 100 mls @ 10 mls/hr IVPB Q10H [facility] PRN Reason: 8 MG/HR Last Admin: 05/12/17 00:38 Dose: 10 mls/hr Nystatin (Nystop Powder -) 1 applic TP DAILY [facility] Last Admin: 05/11/17 08:59 Dose: 1 applic Vancomycin HCl (Vancomycin Oral Solution) 125 mg PO Q6HPO [facility] Last Admin: 05/12/17 05:59 Dose: 125 mg A/P 86 year old gentleman with PMhx of CKD stage 4 (baseline Cr 2.1-2.6), CHF, Anemia, GI bleed, Hyperlipidiemia, Recent admission for hematuria who presented s/p fall with bradycardia, fluid overload and SUZI on CKD. 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
[2017-05-12 08:47] LABS: BASOPHIL 0.2 % (0-2.0); EOSINOPHIL 0.8 % (0-4.5); MCH 30.3 pg (25.7-33.7); MCHC 33.4 g/dl (32.0-35.9); MEAN CELL VOLUME 90.7 fl (80-96); MEAN PLT VOLUME 8.4 fl (7.5-11.1); NEUTROPHILS 87.4 % (42.8-82.8); PLATELET COUNT 238 K/MM3 (134-434); RDW 17.4 % (11.9-15.9); WHITE BLOOD COUNT 15.5 K/mm3 (4.0-10.0)
[2017-05-12] MEDS ORDERED: PT OWN MED DRAWER 7, Y5N ONE ×3 (09:17→17:04)
[2017-05-12] MEDS: amLODIPine BESYLATE 5 MG TABLET (FP) PO SCH (09:20)
[2017-05-12] MEDS ORDERED: FUROSEMIDE 40 MG TABLET (FP) PO SCH (10:00)
[2017-05-12 10:18] LABS: ANION GAP 9 (8-16); CALCIUM 8.4 mg/dL (8.5-10.1); CO2 28 mmol/L (21-32); CREATININE 3.2 mg/dL (0.7-1.3); GLUCOSE,RANDOM 121 mg/dL (74-106); MAGNESIUM 1.8 mg/dL (1.8-2.4)
[2017-05-12] MEDS ORDERED: POTASSIUM CHLORIDE ORAL LIQUID 20 MEQ/15 ML PO ONE (10:45)
--- NOTE | 2017-05-12 11:26 | PN ---
Progress Note, Physician History of Present Illness: Pt seen and examined. Medical records in EMR reviewed. Pt currently alert and responsive. Has pasty stools but currently denies abd pain. Is afebrile and without acute distress. - Current Medication List Current Medications: Active Medications Amlodipine Besylate (Norvasc -) 5 mg PO DAILY [facility] Last Admin: 05/12/17 09:20 Dose: 5 mg Docusate Sodium (Colace -) 100 mg PO Q8H PRN PRN Reason: CONSTIPATION Pantoprazole Sodium 80 mg/ (Sodium Chloride) 100 mls @ 10 mls/hr IVPB Q10H [facility] PRN Reason: 8 MG/HR Last Admin: 05/12/17 09:21 Dose: 10 mls/hr Nystatin (Nystop Powder -) 1 applic TP DAILY [facility] Last Admin: 05/11/17 08:59 Dose: 1 applic Vancomycin HCl (Vancomycin Oral Solution) 125 mg PO Q6HPO [facility] Last Admin: 05/12/17 05:59 Dose: 125 mg - Objective Vital Signs: Vital Signs Temperature 97.9 F 05/12/17 05:50 Pulse Rate 69 05/12/17 05:50 Respiratory Rate 18 05/12/17 05:50 Blood Pressure 165/67 05/12/17 05:50 O2 Sat by Pulse Oximetry (%) 98 05/11/17 21:00 Constitutional: Yes: No Distress Eyes: Yes: WNL HENT: Yes: WNL Neck: Yes: Supple Cardiovascular: Yes: Regular Rate and Rhythm Respiratory: Yes: Regular Gastrointestinal: Yes: Normal Bowel Sounds, Soft Genitourinary: Yes: WNL Musculoskeletal: Yes: WNL Extremities: Yes: Erythema (RLE mild erythema but no warmth/tenderness/edema) Integumentary: Yes: Erythema Neurological: Yes: Alert Labs: CBC, BMP 05/12/17 06:00 05/12/17 09:40 INR, PTT INR 1.03 (0.82-1.09) 05/06/17 05:15 Microbiology 05/11/17 12:18 Clostridium difficile Antigen (PIETRO) - Final Stool Clostridium difficile Toxin Assay - Final Problem List - Problems (1) CAD (coronary artery disease) Code(s): I25.10 - ATHSCL HEART DISEASE OF [place] CORONARY ARTERY W/O ANG PCTRS (2) CHF (congestive heart failure) Code(s): I50.9 - HEART FAILURE, UNSPECIFIED Qualifiers: Congestive heart failure type: diastolic Congestive heart failure chronicity: chronic Qualified Code(s): I50.32 - Chronic diastolic ( congestive) heart failure (3) Dementia Code(s): F03.90 - UNSPECIFIED DEMENTIA WITHOUT BEHAVIORAL DISTURBANCE (4) Renal failure (ARF), acute on chronic Code(s): N17.9 - ACUTE KIDNEY FAILURE, UNSPECIFIED N18.9 - CHRONIC KIDNEY DISEASE, UNSPECIFIED (5) Clostridium difficile colitis Code(s): A04.7 - ENTEROCOLITIS DUE TO CLOSTRIDIUM DIFFICILE Assessment/Plan C. difficile colitis Leukocytosis RLE erythema, possible Cellulitis - leukocytosis slightly improved, continue monitor wbc - continue vancomycin po - maintain on contact precautions, hand washing - monitor off other antibiotics for now will re-evaluate
--- NOTE | 2017-05-12 11:36 | PN ---
Progress Note, Physician Chief Complaint: Lethargic Tele: sinus with no significant pauses or bradycardia today History of Present Illness: 86 year-old man NHR, HTN, CHF, CAD, JAQUELINE, schizophrenia & depression admitted with fall out of wheelchair with scalp laceration. He was hypothermic with rectal temp @ 91.5F, and a pulse of 35 w/ SBP in the 90's. He was given glucagon (On lopressor) & Started on TCP. He is receiving low dose dopamine in ICU. He has been treated for right leg cellulitis with marked improvement. Sinus tachy and bradycardia improved. Pacemaker implantation is indicated for sick sinus syndrome. Positive C. diff in stool noted. - Current Medication List Current Medications: Active Medications Amlodipine Besylate (Norvasc -) 5 mg PO DAILY [facility] Last Admin: 05/12/17 09:20 Dose: 5 mg Docusate Sodium (Colace -) 100 mg PO Q8H PRN PRN Reason: CONSTIPATION Pantoprazole Sodium 80 mg/ (Sodium Chloride) 100 mls @ 10 mls/hr IVPB Q10H [facility] PRN Reason: 8 MG/HR Last Admin: 05/12/17 09:21 Dose: 10 mls/hr Nystatin (Nystop Powder -) 1 applic TP DAILY [facility] Last Admin: 05/11/17 08:59 Dose: 1 applic Vancomycin HCl (Vancomycin Oral Solution) 125 mg PO Q6HPO [facility] Last Admin: 05/12/17 05:59 Dose: 125 mg - Objective Vital Signs: Vital Signs Temperature 97.9 F 05/12/17 05:50 Pulse Rate 69 05/12/17 05:50 Respiratory Rate 18 05/12/17 05:50 Blood Pressure 165/67 05/12/17 05:50 O2 Sat by Pulse Oximetry (%) 98 05/11/17 21:00 Constitutional: Yes: No Distress Neck: Yes: WNL Cardiovascular: Yes: Regular Rate and Rhythm, S1, S2. No: JVD, Murmur Respiratory: Yes: CTA Bilaterally Gastrointestinal: Yes: Soft Edema: No Labs: CBC, BMP 05/12/17 06:00 05/12/17 09:40 INR, PTT INR 1.03 (0.82-1.09) 05/06/17 05:15 Problem List - Problems (1) Bradycardia Code(s): R00.1 - BRADYCARDIA, UNSPECIFIED Assessment/Plan 86 year-old man NHR, HTN, CHF, CAD, JAQUELINE, schizophrenia & depression admitted with fall out of wheelchair with scalp laceration. He was hypothermic with rectal temp @ 91.5F, and a pulse of 35 w/ SBP in the 90's. He was given glucagon (On lopressor) & Started on TCP. He is receiving low dose dopamine in ICU. He has been treated for right leg cellulitis with marked improvement. Sinus tachy and bradycardia improved. Pacemaker implantation is indicated for sick sinus syndrome. Positive C. diff in stool noted. 1) Sick sinus syndrome sinus today with stable HR and no significant pauses at this time. -No av micha blocking agents Abx as per ID -Plan to be evaluated by Dr. Dooley for possible PPM in future.
[2017-05-12] MEDS: NYSTATIN POWDER 100,000 UNITS/GM - 15 GM TOPICAL POWDER TP SCH (12:14)
--- NOTE | 2017-05-12 17:25 | PN ---
Progress Note, Physician History of Present Illness: comfortable - Current Medication List Current Medications: Active Medications Amlodipine Besylate (Norvasc -) 5 mg PO DAILY [facility] Last Admin: 05/12/17 09:20 Dose: 5 mg Docusate Sodium (Colace -) 100 mg PO Q8H PRN PRN Reason: CONSTIPATION Pantoprazole Sodium 80 mg/ (Sodium Chloride) 100 mls @ 10 mls/hr IVPB Q10H [facility] PRN Reason: 8 MG/HR Last Admin: 05/12/17 09:21 Dose: 10 mls/hr Nystatin (Nystop Powder -) 1 applic TP DAILY [facility] Last Admin: 05/12/17 12:14 Dose: 1 applic Vancomycin HCl (Vancomycin Oral Solution) 125 mg PO Q6HPO [facility] Last Admin: 05/12/17 17:05 Dose: 125 mg - Objective Vital Signs: Vital Signs Temperature 98.7 F 05/12/17 14:18 Pulse Rate 72 05/12/17 14:18 Respiratory Rate 20 05/12/17 14:18 Blood Pressure 153/67 05/12/17 14:18 O2 Sat by Pulse Oximetry (%) 96 05/12/17 09:00 Constitutional: Yes: Calm HENT: Yes: Atraumatic Neck: Yes: Supple Cardiovascular: Yes: Regular Rate and Rhythm Respiratory: Yes: Rhonchi Gastrointestinal: Yes: Normal Bowel Sounds Edema: No Peripheral Pulses WNL: Yes Neurological: Yes: Alert Labs: CBC, BMP 05/12/17 06:00 05/12/17 09:40 INR, PTT INR 1.03 (0.82-1.09) 05/06/17 05:15 Problem List - Problems (1) Anemia Assessment/Plan: h/h stable Code(s): D64.9 - ANEMIA, UNSPECIFIED Qualifiers: 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 Code(s): D50.0 - Iron deficiency anemia secondary to blood loss (chronic) (2) Bradycardia Assessment/Plan: pulse wnl Code(s): R00.1 - BRADYCARDIA, UNSPECIFIED (3) CAD (coronary artery disease) Code(s): I25.10 - ATHSCL HEART DISEASE OF [place] CORONARY ARTERY W/O ANG PCTRS (4) CHF (congestive heart failure) Assessment/Plan: stable Code(s): I50.9 - HEART FAILURE, UNSPECIFIED Qualifiers: Congestive heart failure type: diastolic Congestive heart failure chronicity: chronic Qualified Code(s): I50.32 - Chronic diastolic ( congestive) heart failure (5) Clostridium difficile colitis Assessment/Plan: on po vancomycin per id Code(s): A04.7 - ENTEROCOLITIS DUE TO CLOSTRIDIUM DIFFICILE (6) Dementia Code(s): F03.90 - UNSPECIFIED DEMENTIA WITHOUT BEHAVIORAL DISTURBANCE (7) Cellulitis of leg, right Assessment/Plan: not on abx now Code(s): L03.115 - CELLULITIS OF RIGHT LOWER LIMB (8) HTN (hypertension) Assessment/Plan: on meds stable Code(s): I10 - ESSENTIAL (PRIMARY) HYPERTENSION Assessment/Plan covering for dr bennett
[2017-05-13] MEDS: VANCOMYCIN 250 MG/5 ML ORAL SOLUTION PO SCH ×5 (00:22→22:59)
[2017-05-13] MEDS: PANTOPRAZOLE SODIUM 80 MG in SODIUM CHLORIDE 100 ML IVPB SCH ×3 (03:53→22:59)
[2017-05-13 07:13] LABS: BASOPHIL 0.1 % (0-2.0); EOSINOPHIL 1.6 % (0-4.5); MCH 30.3 pg (25.7-33.7); MCHC 33.3 g/dl (32.0-35.9); MEAN PLT VOLUME 8.6 fl (7.5-11.1); NEUTROPHILS 87.9 % (42.8-82.8); PLATELET COUNT 266 K/MM3 (134-434); RDW 16.9 % (11.9-15.9)
[2017-05-13 07:29] LABS: ANION GAP 6 (8-16); CALCIUM 8.5 mg/dL (8.5-10.1); CO2 27 mmol/L (21-32); GLUCOSE,RANDOM 113 mg/dL (74-106); MAGNESIUM 1.8 mg/dL (1.8-2.4)
[2017-05-13 07:30] LABS: CREATININE 3.2 mg/dL (0.7-1.3); PHOSPHOROUS 2.2 mg/dL (2.5-4.9)
--- NOTE | 2017-05-13 08:06 | PN ---
Progress Note, Physician Chief Complaint: comfortable Tele: sinus with no significant bradycardia or pauses last 24 hours History of Present Illness: 86 year-old man NHR, HTN, CHF, CAD, JAQUELINE, schizophrenia & depression admitted with fall out of wheelchair with scalp laceration. He was hypothermic with rectal temp @ 91.5F, and a pulse of 35 w/ SBP in the 90's. He was given glucagon (On lopressor) & Started on TCP. He is receiving low dose dopamine in ICU. He has been treated for right leg cellulitis with marked improvement. Sinus tachy and bradycardia improved. Pacemaker implantation is indicated for sick sinus syndrome. Positive C. diff in stool noted. - Current Medication List Current Medications: Active Medications Amlodipine Besylate (Norvasc -) 5 mg PO DAILY [facility] Last Admin: 05/12/17 09:20 Dose: 5 mg Docusate Sodium (Colace -) 100 mg PO Q8H PRN PRN Reason: CONSTIPATION Pantoprazole Sodium 80 mg/ (Sodium Chloride) 100 mls @ 10 mls/hr IVPB Q10H [facility] PRN Reason: 8 MG/HR Last Admin: 05/13/17 03:53 Dose: 10 mls/hr Nystatin (Nystop Powder -) 1 applic TP DAILY [facility] Last Admin: 05/12/17 12:14 Dose: 1 applic Vancomycin HCl (Vancomycin Oral Solution) 125 mg PO Q6HPO [facility] Last Admin: 05/13/17 05:39 Dose: 125 mg - Objective Vital Signs: Vital Signs Temperature 98.4 F 05/13/17 06:00 Pulse Rate 67 05/13/17 06:00 Respiratory Rate 18 05/13/17 06:00 Blood Pressure 145/55 05/13/17 06:00 O2 Sat by Pulse Oximetry (%) 96 05/12/17 21:00 Constitutional: Yes: No Distress Neck: Yes: Supple Cardiovascular: Yes: Regular Rate and Rhythm, Murmur (+3/6 HSM throughout greatest RUSB), S1, S2. No: JVD Respiratory: Yes: CTA Bilaterally Gastrointestinal: Yes: Soft Edema: No Labs: CBC, BMP 05/13/17 06:00 05/13/17 06:00 INR, PTT INR 1.03 (0.82-1.09) 05/06/17 05:15 Problem List - Problems (1) Bradycardia Code(s): R00.1 - BRADYCARDIA, UNSPECIFIED Assessment/Plan 86 year-old man NHR, HTN, CHF, CAD, JAQUELINE, schizophrenia & depression admitted with fall out of wheelchair with scalp laceration. He was hypothermic with rectal temp @ 91.5F, and a pulse of 35 w/ SBP in the 90's. He was given glucagon (On lopressor) & Started on TCP. He is receiving low dose dopamine in ICU. He has been treated for right leg cellulitis with marked improvement. Sinus tachy and bradycardia improved. Pacemaker implantation is indicated for sick sinus syndrome. Positive C. diff in stool noted. 1) Sick sinus syndrome sinus today with stable HR and no significant pauses at this time. -No av micha blocking agents Abx as per ID -Plan to be evaluated by Dr. Dooley for possible PPM this week
[2017-05-13] MEDS: amLODIPine BESYLATE 5 MG TABLET (FP) PO SCH (11:52)
[2017-05-13] MEDS: NYSTATIN POWDER 100,000 UNITS/GM - 15 GM TOPICAL POWDER TP SCH (11:52)
--- NOTE | 2017-05-13 13:56 | PN ---
Progress Note, Physician History of Present Illness: comfortable - Current Medication List Current Medications: Active Medications Amlodipine Besylate (Norvasc -) 5 mg PO DAILY [facility] Last Admin: 05/13/17 11:52 Dose: 5 mg Docusate Sodium (Colace -) 100 mg PO Q8H PRN PRN Reason: CONSTIPATION Pantoprazole Sodium 80 mg/ (Sodium Chloride) 100 mls @ 10 mls/hr IVPB Q10H [facility] PRN Reason: 8 MG/HR Last Admin: 05/13/17 03:53 Dose: 10 mls/hr Nystatin (Nystop Powder -) 1 applic TP DAILY [facility] Last Admin: 05/13/17 11:52 Dose: 1 applic Vancomycin HCl (Vancomycin Oral Solution) 125 mg PO Q6HPO [facility] Last Admin: 05/13/17 11:53 Dose: 125 mg - Objective Vital Signs: Vital Signs Temperature 98.2 F 05/13/17 13:42 Pulse Rate 66 05/13/17 13:42 Respiratory Rate 20 05/13/17 13:42 Blood Pressure 145/54 05/13/17 13:42 O2 Sat by Pulse Oximetry (%) 97 05/13/17 09:00 Constitutional: Yes: No Distress HENT: Yes: Atraumatic Neck: Yes: Supple Cardiovascular: Yes: Regular Rate and Rhythm Respiratory: Yes: Rhonchi Gastrointestinal: Yes: Normal Bowel Sounds Extremities: Yes: WNL Edema: LLE: 1+, RLE: 1+ Peripheral Pulses WNL: Yes Neurological: Yes: Alert Labs: CBC, BMP 05/13/17 06:00 05/13/17 06:00 INR, PTT INR 1.03 (0.82-1.09) 05/06/17 05:15 Problem List - Problems (1) Anemia Assessment/Plan: h/h stable Code(s): D64.9 - ANEMIA, UNSPECIFIED Qualifiers: 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 Code(s): D50.0 - Iron deficiency anemia secondary to blood loss (chronic); D50.0 - Iron deficiency anemia secondary to blood loss (chronic) (2) Bradycardia Assessment/Plan: pulse wnl Code(s): R00.1 - BRADYCARDIA, UNSPECIFIED (3) CAD (coronary artery disease) Code(s): I25.10 - ATHSCL HEART DISEASE OF [place] CORONARY ARTERY W/O ANG PCTRS (4) CHF (congestive heart failure) Assessment/Plan: stable Code(s): I50.9 - HEART FAILURE, UNSPECIFIED Qualifiers: Congestive heart failure type: diastolic Congestive heart failure chronicity: chronic Qualified Code(s): I50.32 - Chronic diastolic ( congestive) heart failure; I50.32 - Chronic diastolic (congestive) heart failure ; I50.32 - Chronic diastolic (congestive) heart failure; I50.32 - Chronic diastolic (congestive) heart failure (5) Clostridium difficile colitis Assessment/Plan: on po vancomycin per id Code(s): A04.7 - ENTEROCOLITIS DUE TO CLOSTRIDIUM DIFFICILE * DO NOT USE * (6) Dementia Code(s): F03.90 - UNSPECIFIED DEMENTIA WITHOUT BEHAVIORAL DISTURBANCE (7) Cellulitis of leg, right Assessment/Plan: not on abx now Code(s): L03.115 - CELLULITIS OF RIGHT LOWER LIMB (8) HTN (hypertension) Assessment/Plan: on meds stable Code(s): I10 - ESSENTIAL (PRIMARY) HYPERTENSION Assessment/Plan covering for dr bennett
--- NOTE | 2017-05-13 16:26 | PN ---
Progress Note, Physician History of Present Illness: Pt is alert and responsive, without specific complaints. No loose BM noted currently, denies abd pain. - Current Medication List Current Medications: Active Medications Amlodipine Besylate (Norvasc -) 5 mg PO DAILY [facility] Last Admin: 05/13/17 11:52 Dose: 5 mg Docusate Sodium (Colace -) 100 mg PO Q8H PRN PRN Reason: CONSTIPATION Pantoprazole Sodium 80 mg/ (Sodium Chloride) 100 mls @ 10 mls/hr IVPB Q10H [facility] PRN Reason: 8 MG/HR Last Admin: 05/13/17 14:46 Dose: 10 mls/hr Nystatin (Nystop Powder -) 1 applic TP DAILY [facility] Last Admin: 05/13/17 11:52 Dose: 1 applic Vancomycin HCl (Vancomycin Oral Solution) 125 mg PO Q6HPO [facility] Last Admin: 05/13/17 11:53 Dose: 125 mg - Objective Vital Signs: Vital Signs Temperature 98.2 F 05/13/17 13:42 Pulse Rate 66 05/13/17 13:42 Respiratory Rate 20 05/13/17 13:42 Blood Pressure 145/54 05/13/17 13:42 O2 Sat by Pulse Oximetry (%) 97 05/13/17 09:00 Constitutional: Yes: No Distress, Calm HENT: Yes: WNL Neck: Yes: Supple Cardiovascular: Yes: Regular Rate and Rhythm Respiratory: Yes: Regular Gastrointestinal: Yes: Normal Bowel Sounds, Soft Extremities: Yes: Erythema (minimal erythema of RLE but appears to have improved , decreased erythema/edema, no tenderness) Neurological: Yes: Alert Labs: CBC, BMP 05/13/17 06:00 05/13/17 06:00 INR, PTT INR 1.03 (0.82-1.09) 05/06/17 05:15 Problem List - Problems (1) CAD (coronary artery disease) Code(s): I25.10 - ATHSCL HEART DISEASE OF [place] CORONARY ARTERY W/O ANG PCTRS (2) CHF (congestive heart failure) Code(s): I50.9 - HEART FAILURE, UNSPECIFIED Qualifiers: Congestive heart failure type: diastolic Congestive heart failure chronicity: chronic Qualified Code(s): I50.32 - Chronic diastolic ( congestive) heart failure; I50.32 - Chronic diastolic (congestive) heart failure ; I50.32 - Chronic diastolic (congestive) heart failure; I50.32 - Chronic diastolic (congestive) heart failure (3) Dementia Code(s): F03.90 - UNSPECIFIED DEMENTIA WITHOUT BEHAVIORAL DISTURBANCE (4) Renal failure (ARF), acute on chronic Code(s): N17.9 - ACUTE KIDNEY FAILURE, UNSPECIFIED N18.9 - CHRONIC KIDNEY DISEASE, UNSPECIFIED (5) Clostridium difficile colitis Code(s): A04.7 - ENTEROCOLITIS DUE TO CLOSTRIDIUM DIFFICILE * DO NOT USE * Assessment/Plan C. difficile colitis Leukocytosis RLE cellulitis improved - wbc trending down - continue vancomycin po - maintain on contact precautions, hand washing - continue monitor off other antibiotics for now pt appears relatively stable
[2017-05-14] MEDS: VANCOMYCIN 250 MG/5 ML ORAL SOLUTION PO SCH ×4 (06:37→17:05)
[2017-05-14] MEDS: NYSTATIN POWDER 100,000 UNITS/GM - 15 GM TOPICAL POWDER TP SCH (10:01)
[2017-05-14] MEDS: amLODIPine BESYLATE 5 MG TABLET (FP) PO SCH (10:01)
[2017-05-14] MEDS: PANTOPRAZOLE SODIUM 80 MG in SODIUM CHLORIDE 100 ML IVPB SCH (11:28)
--- NOTE | 2017-05-14 11:45 | PN ---
Progress Note, Physician History of Present Illness: patient stablizing calm wbc trending down - Current Medication List Current Medications: Active Medications Amlodipine Besylate (Norvasc -) 5 mg PO DAILY [facility] Last Admin: 05/14/17 10:01 Dose: 5 mg Docusate Sodium (Colace -) 100 mg PO Q8H PRN PRN Reason: CONSTIPATION Pantoprazole Sodium 80 mg/ (Sodium Chloride) 100 mls @ 10 mls/hr IVPB Q10H [facility] PRN Reason: 8 MG/HR Last Admin: 05/14/17 11:28 Dose: 10 mls/hr Nystatin (Nystop Powder -) 1 applic TP DAILY [facility] Last Admin: 05/14/17 10:01 Dose: 1 applic Vancomycin HCl (Vancomycin Oral Solution) 125 mg PO Q6HPO [facility] Last Admin: 05/14/17 10:02 Dose: 125 mg - Objective Vital Signs: Vital Signs Temperature 98.6 F 05/14/17 09:59 Pulse Rate 68 05/14/17 09:59 Respiratory Rate 18 05/14/17 09:59 Blood Pressure 149/61 05/14/17 09:59 O2 Sat by Pulse Oximetry (%) 95 05/13/17 21:00 Constitutional: Yes: No Distress, Calm Cardiovascular: Yes: Regular Rate and Rhythm Respiratory: Yes: Regular, CTA Bilaterally Gastrointestinal: Yes: Normal Bowel Sounds, Soft Musculoskeletal: Yes: WNL Extremities: Yes: WNL Neurological: Yes: Alert, Other Labs: CBC, BMP 05/13/17 06:00 05/13/17 06:00 INR, PTT INR 1.03 (0.82-1.09) 05/06/17 05:15 Assessment/Plan Problem List - Problems (1) Bradycardia Code(s): R00.1 - BRADYCARDIA, UNSPECIFIED (2) Hypothermia Code(s): T68.XXXA - HYPOTHERMIA, INITIAL ENCOUNTER (3) Renal failure (ARF), acute on chronic Code(s): N17.9 - ACUTE KIDNEY FAILURE, UNSPECIFIED N18.9 - CHRONIC KIDNEY DISEASE, UNSPECIFIED (4) Hyperkalemia Code(s): E87.5 - HYPERKALEMIA (5) Anemia Code(s): D64.9 - ANEMIA, UNSPECIFIED Qualifiers: 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 Code(s): D50.0 - Iron deficiency anemia secondary to blood loss (chronic) (6) CAD (coronary artery disease) Code(s): I25.10 - ATHSCL HEART DISEASE OF [place] CORONARY ARTERY W/O ANG PCTRS (7) CHF (congestive heart failure) Code(s): I50.9 - HEART FAILURE, UNSPECIFIED Qualifiers: Congestive heart failure type: diastolic Congestive heart failure chronicity: chronic Qualified Code(s): I50.32 - Chronic diastolic ( congestive) heart failure (8) Dementia Code(s): F03.90 - UNSPECIFIED DEMENTIA WITHOUT BEHAVIORAL DISTURBANCE (9) HTN (hypertension) Code(s): I10 - ESSENTIAL (PRIMARY) HYPERTENSION 10 leukocytosis 11 cdiff plan continue on oral vanco nutrition rest as p[er primary team
[2017-05-14] MEDS ORDERED: PT OWN MED DRAWER 7, Y5N ONE (11:50)
--- NOTE | 2017-05-14 12:20 | PN ---
Progress Note (short form) - Note Progress Note: Renal follow up for SUZI Pt seen and examined at the bedside awake and alert no acute complaints voiding w/o harris off diuretics Vital Signs Temperature 98.6 F 05/14/17 09:59 Pulse Rate 68 05/14/17 09:59 Respiratory Rate 18 05/14/17 09:59 Blood Pressure 149/61 05/14/17 09:59 O2 Sat by Pulse Oximetry (%) 95 05/13/17 21:00 Intake & Output 05/11/17 05/12/17 05/13/17 05/14/17 23:59 23:59 23:59 23:59 Intake Total 230 1140 416 336 Balance 230 1140 416 336 Gen: NAD, awake and alert CVS: RRR, No M/R Lungs: Dec BS at lung bases, no rales Abd: soft NT/ND Ext: no edema CBC, BMP 05/13/17 06:00 Current Medications Amlodipine Besylate (Norvasc -) 5 mg PO DAILY [facility] Last Admin: 05/14/17 10:01 Dose: 5 mg Docusate Sodium (Colace -) 100 mg PO Q8H PRN PRN Reason: CONSTIPATION Pantoprazole Sodium 80 mg/ (Sodium Chloride) 100 mls @ 10 mls/hr IVPB Q10H [facility] PRN Reason: 8 MG/HR Last Admin: 05/14/17 11:28 Dose: 10 mls/hr Nystatin (Nystop Powder -) 1 applic TP DAILY [facility] Last Admin: 05/14/17 10:01 Dose: 1 applic Vancomycin HCl (Vancomycin Oral Solution) 125 mg PO Q6HPO [facility] Last Admin: 05/14/17 10:02 Dose: 125 mg A/P 86 year old gentleman with PMhx of CKD stage 4 (baseline Cr 2.1-2.6), CHF, Anemia, GI bleed, Hyperlipidiemia, Recent admission for hematuria who presented s/p fall with bradycardia, fluid overload and SUZI on CKD. #Acute on Chronic Renal insufficiency no improvement in renal function as of yesterday todays labs are pending if BUN/Cr remain elevated will consider tiral of IVF given that clincially pt appears dry at this time no acute indication for BALLOON PILOT #Hypernatremia Todays Na pending, if > 150 will start IVF #Hypertension Start Amlodpine 5mg Daily goal BP < 150/90 Thank you Teja Mercedes DO
[2017-05-14 12:35] LABS: ANION GAP 9 (8-16); CALCIUM 8.4 mg/dL (8.5-10.1); CO2 26 mmol/L (21-32); CREATININE 3.1 mg/dL (0.7-1.3); GLUCOSE,RANDOM 170 mg/dL (74-106)
--- NOTE | 2017-05-14 14:05 | PN ---
Progress Note, Physician Chief Complaint: Unable to obtain today - Current Medication List Current Medications: Active Medications Amlodipine Besylate (Norvasc -) 5 mg PO DAILY [facility] Last Admin: 05/14/17 10:01 Dose: 5 mg Docusate Sodium (Colace -) 100 mg PO Q8H PRN PRN Reason: CONSTIPATION Pantoprazole Sodium 80 mg/ (Sodium Chloride) 100 mls @ 10 mls/hr IVPB Q10H [facility] PRN Reason: 8 MG/HR Last Admin: 05/14/17 11:28 Dose: 10 mls/hr Nystatin (Nystop Powder -) 1 applic TP DAILY [facility] Last Admin: 05/14/17 10:01 Dose: 1 applic Vancomycin HCl (Vancomycin Oral Solution) 125 mg PO Q6HPO [facility] Last Admin: 05/14/17 12:35 Dose: 125 mg - Objective Vital Signs: Vital Signs Temperature 37.0 C 05/14/17 09:59 Pulse Rate 68 05/14/17 09:59 Respiratory Rate 18 05/14/17 09:59 Blood Pressure 149/61 05/14/17 09:59 O2 Sat by Pulse Oximetry (%) 94 L 05/14/17 09:00 Constitutional: Yes: Well Nourished, No Distress, Calm Cardiovascular: Yes: Regular Rate and Rhythm. No: Gallop, Murmur, Rub Respiratory: Yes: Regular, CTA Bilaterally. No: Rales, Rhonchi, Wheezes Gastrointestinal: Yes: Normal Bowel Sounds, Soft. No: Distention, Tenderness Extremities: Yes: WNL Edema: No Labs: CBC, BMP 05/13/17 06:00 05/14/17 12:00 INR, PTT INR 1.03 (0.82-1.09) 05/06/17 05:15 Problem List - Problems (1) Bradycardia Code(s): R00.1 - BRADYCARDIA, UNSPECIFIED (2) Hypothermia Code(s): T68.XXXA - HYPOTHERMIA, INITIAL ENCOUNTER (3) Renal failure (ARF), acute on chronic Code(s): N17.9 - ACUTE KIDNEY FAILURE, UNSPECIFIED N18.9 - CHRONIC KIDNEY DISEASE, UNSPECIFIED (4) Hyperkalemia Code(s): E87.5 - HYPERKALEMIA (5) Anemia Code(s): D64.9 - ANEMIA, UNSPECIFIED Qualifiers: 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 Code(s): D50.0 - Iron deficiency anemia secondary to blood loss (chronic); D50.0 - Iron deficiency anemia secondary to blood loss (chronic) (6) CAD (coronary artery disease) Code(s): I25.10 - ATHSCL HEART DISEASE OF [place] CORONARY ARTERY W/O ANG PCTRS (7) CHF (congestive heart failure) Code(s): I50.9 - HEART FAILURE, UNSPECIFIED Qualifiers: Congestive heart failure type: diastolic Congestive heart failure chronicity: chronic Qualified Code(s): I50.32 - Chronic diastolic ( congestive) heart failure; I50.32 - Chronic diastolic (congestive) heart failure ; I50.32 - Chronic diastolic (congestive) heart failure; I50.32 - Chronic diastolic (congestive) heart failure (8) Dementia Code(s): F03.90 - UNSPECIFIED DEMENTIA WITHOUT BEHAVIORAL DISTURBANCE (9) HTN (hypertension) Code(s): I10 - ESSENTIAL (PRIMARY) HYPERTENSION (10) Clostridium difficile colitis Code(s): A04.7 - ENTEROCOLITIS DUE TO CLOSTRIDIUM DIFFICILE * DO NOT USE * Assessment/Plan (1) Bradycardia Assessment/Plan: -resolved -off dopamine gtt -cardiology following -awaiting decision for pacemaker placement per cardiology Code(s): R00.1 - BRADYCARDIA, UNSPECIFIED (2) Hypothermia Assessment/Plan: -resolved -suspect secondary to bradycardia Code(s): T68.XXXA - HYPOTHERMIA, INITIAL ENCOUNTER (3) Renal failure (ARF), acute on chronic Assessment/Plan: -may benefit from IVF per nephrology -will d/w Dr Mercedes, as also with hypernatremia so will discuss fluid and rate Code(s): N17.9 - ACUTE KIDNEY FAILURE, UNSPECIFIED N18.9 - CHRONIC KIDNEY DISEASE, UNSPECIFIED (4) Hyperkalemia Assessment/Plan: -resolved Code(s): E87.5 - HYPERKALEMIA (5) Anemia Assessment/Plan: -multifactorial -AOCD and GIB with CBLA -change protonix gtt to oral protonix Code(s): D64.9 - ANEMIA, UNSPECIFIED Qualifiers: Anemia type: unspecified type Qualified Code(s): D64.9 - Anemia, unspecified (6) CAD (coronary artery disease) Assessment/Plan: -cardiology following Code(s): I25.10 - ATHSCL HEART DISEASE OF [place] CORONARY ARTERY W/O ANG PCTRS (7) CHF (congestive heart failure) Assessment/Plan: -lasix held, may be dry Code(s): I50.9 - HEART FAILURE, UNSPECIFIED Qualifiers: Congestive heart failure type: unspecified congestive heart failure type Congestive heart failure chronicity: chronic Qualified Code(s): I50.9 - Heart failure, unspecified (8) Dementia Assessment/Plan: -patient is close to baseline -continue current management Code(s): F03.90 - UNSPECIFIED DEMENTIA WITHOUT BEHAVIORAL DISTURBANCE (9) HTN (hypertension) Assessment/Plan: -continue amlodipine Code(s): I10 - ESSENTIAL (PRIMARY) HYPERTENSION (10) Hypernatremia -nephrology following (11) C diff colitis -positive -ID following -continue oral vancomycin, total 14 days
--- NOTE | 2017-05-14 17:04 | PN ---
Progress Note (short form) - Note Progress Note: GASTROENTEROLOGY NO BLEEDING, C DIFF + ON ORAL VANCO CALL BACK NEEDED KATHERINE BENNETT MD Problem List - Problems (1) Blood loss anemia Code(s): D50.0 - IRON DEFICIENCY ANEMIA SECONDARY TO BLOOD LOSS (CHRONIC) (2) Bradycardia Code(s): R00.1 - BRADYCARDIA, UNSPECIFIED (3) CAD (coronary artery disease) Code(s): I25.10 - ATHSCL HEART DISEASE OF [place] CORONARY ARTERY W/O ANG PCTRS (4) CHF (congestive heart failure) Code(s): I50.9 - HEART FAILURE, UNSPECIFIED Qualifiers: Congestive heart failure type: diastolic Congestive heart failure chronicity: chronic Qualified Code(s): I50.32 - Chronic diastolic ( congestive) heart failure; I50.32 - Chronic diastolic (congestive) heart failure ; I50.32 - Chronic diastolic (congestive) heart failure; I50.32 - Chronic diastolic (congestive) heart failure (5) Dementia Code(s): F03.90 - UNSPECIFIED DEMENTIA WITHOUT BEHAVIORAL DISTURBANCE (6) Renal failure (ARF), acute on chronic Code(s): N17.9 - ACUTE KIDNEY FAILURE, UNSPECIFIED N18.9 - CHRONIC KIDNEY DISEASE, UNSPECIFIED
[2017-05-15] MEDS: VANCOMYCIN 250 MG/5 ML ORAL SOLUTION PO SCH ×4 (00:16→18:06)
[2017-05-15 07:26] LABS: ANION GAP 5 (8-16); BASOPHIL 0.7 % (0-2.0); CALCIUM 8.3 mg/dL (8.5-10.1); CO2 29 mmol/L (21-32); EOSINOPHIL 1.2 % (0-4.5); GLUCOSE,RANDOM 113 mg/dL (74-106); MAGNESIUM 1.8 mg/dL (1.8-2.4); MCH 30.1 pg (25.7-33.7); MCHC 32.4 g/dl (32.0-35.9); MEAN CELL VOLUME 92.7 fl (80-96); NEUTROPHILS 85.1 % (42.8-82.8); PHOSPHOROUS 2.4 mg/dL (2.5-4.9); PLATELET COUNT 292 K/MM3 (134-434); RDW 16.6 % (11.9-15.9); WHITE BLOOD COUNT 12.8 K/mm3 (4.0-10.0)
[2017-05-15] MEDS: amLODIPine BESYLATE 5 MG TABLET (FP) PO SCH (10:38)
[2017-05-15] MEDS: NYSTATIN POWDER 100,000 UNITS/GM - 15 GM TOPICAL POWDER TP SCH (10:38)
[2017-05-15] MEDS: PANTOPRAZOLE 40 MG TABLET (FP) PO SCH (10:38)
--- NOTE | 2017-05-15 11:57 | PN ---
Progress Note (short form) - Note Progress Note: Renal follow up for SUZI Pt seen and examined at the bedside awake and alert no complaints eating well as per nurse Vital Signs Temperature 98.4 F 05/15/17 10:00 Pulse Rate 74 05/15/17 10:00 Respiratory Rate 20 05/15/17 10:00 Blood Pressure 147/64 05/15/17 10:00 O2 Sat by Pulse Oximetry (%) 94 L 05/14/17 21:00 Intake & Output 05/12/17 05/13/17 05/14/17 05/15/17 23:59 23:59 23:59 23:59 Intake Total 1140 416 486 Balance 1140 416 486 Gen: NAD, awake and alert CVS: RRR, No M/R Lungs: Dec BS at lung bases, no rales Abd: soft NT/ND Ext: no edema CBC, BMP 05/15/17 05:30 05/15/17 05:30 Current Medications Amlodipine Besylate (Norvasc -) 5 mg PO DAILY [facility] Last Admin: 05/15/17 10:38 Dose: 5 mg Docusate Sodium (Colace -) 100 mg PO Q8H PRN PRN Reason: CONSTIPATION Sodium Chloride (1/2 Normal Saline) 1,000 mls @ 75 mls/hr IV ASDIR [facility] Nystatin (Nystop Powder -) 1 applic TP DAILY [facility] Last Admin: 05/15/17 10:38 Dose: 1 applic Pantoprazole Sodium (Protonix -) 40 mg PO DAILY [facility] Last Admin: 05/15/17 10:38 Dose: 40 mg Vancomycin HCl (Vancomycin Oral Solution) 125 mg PO Q6HPO [facility] Last Admin: 05/15/17 06:23 Dose: 125 mg A/P 86 year old gentleman with PMhx of CKD stage 4 (baseline Cr 2.1-2.6), CHF, Anemia, GI bleed, Hyperlipidiemia, Recent admission for hematuria who presented s/p fall with bradycardia, fluid overload and SUZI on CKD. #Acute on Chronic Renal insufficiency Renal function not improved and pt appears clinically dry/volume depleted (in setting of C-diff) Will start hypotonic IVF Trend Na and BUN/Cr no indication for SCIENTIFIC AIDE avoid NSAIDs, IV contrast #Hypernatremia start 1/2 NS #Hypertension Amlodpine 5mg Daily goal BP < 150/90 Thank you Teja Mercedes DO
[2017-05-15] MEDS ORDERED: PT OWN MED DRAWER 7, Y5N ONE (12:19)
[2017-05-15] MEDS: SODIUM CHLORIDE 0.45% 1,000 ML IV SCH (12:21)
--- NOTE | 2017-05-15 12:27 | PN ---
Progress Note, Physician Chief Complaint: Unable to obtain. - Current Medication List Current Medications: Active Medications Amlodipine Besylate (Norvasc -) 5 mg PO DAILY [facility] Last Admin: 05/15/17 10:38 Dose: 5 mg Docusate Sodium (Colace -) 100 mg PO Q8H PRN PRN Reason: CONSTIPATION Sodium Chloride (1/2 Normal Saline) 1,000 mls @ 75 mls/hr IV ASDIR [facility] Last Admin: 05/15/17 12:21 Dose: 75 mls/hr Nystatin (Nystop Powder -) 1 applic TP DAILY [facility] Last Admin: 05/15/17 10:38 Dose: 1 applic Pantoprazole Sodium (Protonix -) 40 mg PO DAILY [facility] Last Admin: 05/15/17 10:38 Dose: 40 mg Vancomycin HCl (Vancomycin Oral Solution) 125 mg PO Q6HPO [facility] Last Admin: 05/15/17 12:22 Dose: 125 mg - Objective Vital Signs: Vital Signs Temperature 36.9 C 05/15/17 10:00 Pulse Rate 74 05/15/17 10:00 Respiratory Rate 20 05/15/17 10:00 Blood Pressure 147/64 05/15/17 10:00 O2 Sat by Pulse Oximetry (%) 94 L 05/14/17 21:00 Constitutional: Yes: Well Nourished, No Distress, Calm Cardiovascular: Yes: Regular Rate and Rhythm. No: Gallop, Murmur, Rub Respiratory: Yes: Regular, CTA Bilaterally. No: Rales, Rhonchi, Wheezes Gastrointestinal: Yes: Normal Bowel Sounds, Soft. No: Distention, Tenderness Extremities: Yes: WNL Edema: No Labs: CBC, BMP 05/15/17 05:30 05/15/17 05:30 INR, PTT INR 1.03 (0.82-1.09) 05/06/17 05:15 Problem List - Problems (1) Bradycardia Code(s): R00.1 - BRADYCARDIA, UNSPECIFIED (2) Hypothermia Code(s): T68.XXXA - HYPOTHERMIA, INITIAL ENCOUNTER (3) Renal failure (ARF), acute on chronic Code(s): N17.9 - ACUTE KIDNEY FAILURE, UNSPECIFIED N18.9 - CHRONIC KIDNEY DISEASE, UNSPECIFIED (4) Hyperkalemia Code(s): E87.5 - HYPERKALEMIA (5) Anemia Code(s): D64.9 - ANEMIA, UNSPECIFIED Qualifiers: 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 Code(s): D50.0 - Iron deficiency anemia secondary to blood loss (chronic); D50.0 - Iron deficiency anemia secondary to blood loss (chronic) (6) CAD (coronary artery disease) Code(s): I25.10 - ATHSCL HEART DISEASE OF [place] CORONARY ARTERY W/O ANG PCTRS (7) CHF (congestive heart failure) Code(s): I50.9 - HEART FAILURE, UNSPECIFIED Qualifiers: Congestive heart failure type: diastolic Congestive heart failure chronicity: chronic Qualified Code(s): I50.32 - Chronic diastolic ( congestive) heart failure; I50.32 - Chronic diastolic (congestive) heart failure ; I50.32 - Chronic diastolic (congestive) heart failure; I50.32 - Chronic diastolic (congestive) heart failure (8) Dementia Code(s): F03.90 - UNSPECIFIED DEMENTIA WITHOUT BEHAVIORAL DISTURBANCE (9) HTN (hypertension) Code(s): I10 - ESSENTIAL (PRIMARY) HYPERTENSION (10) Clostridium difficile colitis Code(s): A04.7 - ENTEROCOLITIS DUE TO CLOSTRIDIUM DIFFICILE * DO NOT USE * Assessment/Plan (1) Bradycardia Assessment/Plan: -resolved -awaiting cardiology's decision on possible pacemaker placement Code(s): R00.1 - BRADYCARDIA, UNSPECIFIED (2) Hypothermia Assessment/Plan: -resolved Code(s): T68.XXXA - HYPOTHERMIA, INITIAL ENCOUNTER (3) Renal failure (ARF), acute on chronic Assessment/Plan: -case d/w Dr Mercedes -restart IVF, patient slightly dehydrated Code(s): N17.9 - ACUTE KIDNEY FAILURE, UNSPECIFIED N18.9 - CHRONIC KIDNEY DISEASE, UNSPECIFIED (4) Hyperkalemia Assessment/Plan: -resolved Code(s): E87.5 - HYPERKALEMIA (5) Anemia Assessment/Plan: -multifactorial -AOCD and GIB with CBLA -continue oral protonix and conservative management Code(s): D64.9 - ANEMIA, UNSPECIFIED Qualifiers: Anemia type: unspecified type Qualified Code(s): D64.9 - Anemia, unspecified (6) CAD (coronary artery disease) Assessment/Plan: -cardiology following Code(s): I25.10 - ATHSCL HEART DISEASE OF [place] CORONARY ARTERY W/O ANG PCTRS (7) CHF (congestive heart failure) Assessment/Plan: -lasix held, dry Code(s): I50.9 - HEART FAILURE, UNSPECIFIED Qualifiers: Congestive heart failure type: unspecified congestive heart failure type Congestive heart failure chronicity: chronic Qualified Code(s): I50.9 - Heart failure, unspecified (8) Dementia Assessment/Plan: -patient is close to baseline -continue current management Code(s): F03.90 - UNSPECIFIED DEMENTIA WITHOUT BEHAVIORAL DISTURBANCE (9) HTN (hypertension) Assessment/Plan: -continue amlodipine Code(s): I10 - ESSENTIAL (PRIMARY) HYPERTENSION (10) Hypernatremia -1/2 NS started by nephrology (11) C diff colitis -positive -ID following -continue oral vancomycin, total 14 days
--- NOTE | 2017-05-15 15:33 | PN ---
Progress Note, Physician History of Present Illness: yamil no new issues - Current Medication List Current Medications: Active Medications Amlodipine Besylate (Norvasc -) 5 mg PO DAILY [facility] Last Admin: 05/15/17 10:38 Dose: 5 mg Docusate Sodium (Colace -) 100 mg PO Q8H PRN PRN Reason: CONSTIPATION Sodium Chloride (1/2 Normal Saline) 1,000 mls @ 75 mls/hr IV ASDIR [facility] Last Admin: 05/15/17 12:21 Dose: 75 mls/hr Nystatin (Nystop Powder -) 1 applic TP DAILY [facility] Last Admin: 05/15/17 10:38 Dose: 1 applic Pantoprazole Sodium (Protonix -) 40 mg PO DAILY [facility] Last Admin: 05/15/17 10:38 Dose: 40 mg Vancomycin HCl (Vancomycin Oral Solution) 125 mg PO Q6HPO [facility] Last Admin: 05/15/17 12:22 Dose: 125 mg - Objective Vital Signs: Vital Signs Temperature 98.6 F 05/15/17 13:52 Pulse Rate 76 05/15/17 13:52 Respiratory Rate 20 05/15/17 13:52 Blood Pressure 156/68 05/15/17 13:52 O2 Sat by Pulse Oximetry (%) 94 L 05/14/17 21:00 Constitutional: Yes: No Distress, Calm Cardiovascular: Yes: Regular Rate and Rhythm Respiratory: Yes: Regular, CTA Bilaterally Gastrointestinal: Yes: Normal Bowel Sounds, Soft Musculoskeletal: Yes: WNL Extremities: Yes: WNL Neurological: Yes: Other Labs: CBC, BMP 05/15/17 05:30 05/15/17 05:30 INR, PTT INR 1.03 (0.82-1.09) 05/06/17 05:15 Assessment/Plan Problem List - Problems (1) Bradycardia Code(s): R00.1 - BRADYCARDIA, UNSPECIFIED (2) Hypothermia Code(s): T68.XXXA - HYPOTHERMIA, INITIAL ENCOUNTER (3) Renal failure (ARF), acute on chronic Code(s): N17.9 - ACUTE KIDNEY FAILURE, UNSPECIFIED N18.9 - CHRONIC KIDNEY DISEASE, UNSPECIFIED (4) Hyperkalemia Code(s): E87.5 - HYPERKALEMIA (5) Anemia Code(s): D64.9 - ANEMIA, UNSPECIFIED Qualifiers: 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 Code(s): D50.0 - Iron deficiency anemia secondary to blood loss (chronic) (6) CAD (coronary artery disease) Code(s): I25.10 - ATHSCL HEART DISEASE OF [place] CORONARY ARTERY W/O ANG PCTRS (7) CHF (congestive heart failure) Code(s): I50.9 - HEART FAILURE, UNSPECIFIED Qualifiers: Congestive heart failure type: diastolic Congestive heart failure chronicity: chronic Qualified Code(s): I50.32 - Chronic diastolic ( congestive) heart failure (8) Dementia Code(s): F03.90 - UNSPECIFIED DEMENTIA WITHOUT BEHAVIORAL DISTURBANCE (9) HTN (hypertension) Code(s): I10 - ESSENTIAL (PRIMARY) HYPERTENSION 10 leukocytosis 11 cdiff plan continue on oral vanco nutrition rest as per primary team
--- NOTE | 2017-05-15 15:35 | PN ---
Progress Note, [employer] - Note Progress Note: Selected Entries 05/14/17 05/14/17 05/14/17 01:00 06:00 09:46 Breakfast 75% Lunch Supper Temperature 99.2 F 97.6 F 05/14/17 05/14/17 05/14/17 09:59 14:00 18:01 Breakfast Lunch Supper Temperature 98.6 F 99.0 F 99.6 F 05/14/17 05/14/17 05/15/17 22:00 22:35 01:47 Breakfast Lunch Supper 75% Temperature 99.2 F 99.5 F 05/15/17 05/15/17 05/15/17 06:04 10:00 10:24 Breakfast 100% Lunch Supper Temperature 99.3 F 98.4 F 05/15/17 13:52 Breakfast Lunch 100% Supper Temperature 98.6 F Laboratory Tests 05/12/17 05/13/17 05/15/17 06:00 06:00 05:30 WBC 15.5 H 14.0 H 12.8 H Pt now on puree and nectar thick liquid. Pt tolerating it well with good appetite. Consider MBS before diet upgrade. Pt was on Reg diet/thin liquids in [place].
--- NOTE | 2017-05-15 19:51 | PN ---
Progress Note, Physician Chief Complaint: Appear comfortable History of Present Illness: 86 year-old man NHR, HTN, CHF, CAD, JAQUELINE, schizophrenia & depression admitted with fall out of wheelchair with scalp laceration. He was hypothermic with rectal temp @ 91.5F, and a pulse of 35 w/ SBP in the 90's. He was given glucagon (On lopressor) & Started on TCP. He is receiving low dose dopamine in ICU. He has been treated for right leg cellulitis with marked improvement. Sinus tachy and bradycardia improved. Pacemaker implantation is indicated for sick sinus syndrome. Positive C. diff in stool noted. - Current Medication List Current Medications: Active Medications Amlodipine Besylate (Norvasc -) 5 mg PO DAILY [facility] Last Admin: 05/15/17 10:38 Dose: 5 mg Docusate Sodium (Colace -) 100 mg PO Q8H PRN PRN Reason: CONSTIPATION Sodium Chloride (1/2 Normal Saline) 1,000 mls @ 75 mls/hr IV ASDIR [facility] Last Admin: 05/15/17 12:21 Dose: 75 mls/hr Nystatin (Nystop Powder -) 1 applic TP DAILY [facility] Last Admin: 05/15/17 10:38 Dose: 1 applic Pantoprazole Sodium (Protonix -) 40 mg PO DAILY [facility] Last Admin: 05/15/17 10:38 Dose: 40 mg Vancomycin HCl (Vancomycin Oral Solution) 125 mg PO Q6HPO [facility] Last Admin: 05/15/17 18:06 Dose: 125 mg - Objective Vital Signs: Vital Signs Temperature 98.6 F 05/15/17 13:52 Pulse Rate 76 05/15/17 13:52 Respiratory Rate 20 05/15/17 13:52 Blood Pressure 156/68 05/15/17 13:52 O2 Sat by Pulse Oximetry (%) 95 05/15/17 09:00 Constitutional: Yes: No Distress ( Neck: Yes: Supple Cardiovascular: Yes: Regular Rate and Rhythm, Murmur (+3/6 HSM throughout greatest RUSB), S1, S2. No : JVD Respiratory: Yes: CTA Bilaterally Gastrointestinal: Yes: Soft Edema: No) Labs: CBC, BMP 05/15/17 05:30 05/15/17 05:30 INR, PTT INR 1.03 (0.82-1.09) 05/06/17 05:15 Assessment/Plan 86 year-old man NHR, HTN, CHF, CAD, JAQUELINE, schizophrenia & depression admitted with fall out of wheelchair with scalp laceration. He was hypothermic with rectal temp @ 91.5F, and a pulse of 35 w/ SBP in the 90's. He was given glucagon (On lopressor) & Started on TCP. He is receiving low dose dopamine in ICU. He has been treated for right leg cellulitis with marked improvement. Sinus tachy and bradycardia improved. Pacemaker implantation is indicated for sick sinus syndrome. Positive C. diff in stool noted. 1) Sick sinus syndrome sinus today with stable HR and no significant pauses at this time. -No av micha blocking agents Abx as per ID -Plan to be evaluated by Dr. Dooley for possible PPM this week
[2017-05-16] MEDS: VANCOMYCIN 250 MG/5 ML ORAL SOLUTION PO SCH ×5 (00:27→23:38)
[2017-05-16] MEDS: SODIUM CHLORIDE 0.45% 1,000 ML IV SCH (05:41)
[2017-05-16 07:06] LABS: MCH 29.8 pg (25.7-33.7); MEAN CELL VOLUME 93.2 fl (80-96); MEAN PLT VOLUME 8.7 fl (7.5-11.1); PLATELET COUNT 296 K/MM3 (134-434); RDW 16.8 % (11.9-15.9); WHITE BLOOD COUNT 14.4 K/mm3 (4.0-10.0)
[2017-05-16 07:31] LABS: ANION GAP 5 (8-16); CALCIUM 8.4 mg/dL (8.5-10.1); CO2 29 mmol/L (21-32); CREATININE 2.7 mg/dL (0.7-1.3); GLUCOSE,RANDOM 113 mg/dL (74-106); MAGNESIUM 1.9 mg/dL (1.8-2.4); PHOSPHOROUS 2.7 mg/dL (2.5-4.9)
[2017-05-16 09:40] LABS: PLATELET ESTIMATE ADEQUATE (NORMAL); TOTAL CELLS COUNTED 100
[2017-05-16 09:41] LABS: MYELOCYTE 2 % (0-2)
[2017-05-16] MEDS: amLODIPine BESYLATE 5 MG TABLET (FP) PO SCH (10:09)
[2017-05-16] MEDS: PANTOPRAZOLE 40 MG TABLET (FP) PO SCH (10:09)
[2017-05-16] MEDS: NYSTATIN POWDER 100,000 UNITS/GM - 15 GM TOPICAL POWDER TP SCH (10:11)
--- NOTE | 2017-05-16 12:17 | PN ---
Progress Note, Physician Chief Complaint: Unable to obtain. - Current Medication List Current Medications: Active Medications Amlodipine Besylate (Norvasc -) 5 mg PO DAILY [facility] Last Admin: 05/16/17 10:09 Dose: 5 mg Docusate Sodium (Colace -) 100 mg PO Q8H PRN PRN Reason: CONSTIPATION Dextrose/Sodium Chloride (D5-1/3ns -) 500 mls @ 83 mls/hr IV ASDIR CINTHYA Nystatin (Nystop Powder -) 1 applic TP DAILY [facility] Last Admin: 05/16/17 10:11 Dose: 1 applic Pantoprazole Sodium (Protonix -) 40 mg PO DAILY [facility] Last Admin: 05/16/17 10:09 Dose: 40 mg Vancomycin HCl (Vancomycin Oral Solution) 125 mg PO Q6HPO [facility] Last Admin: 05/16/17 05:40 Dose: 125 mg - Objective Vital Signs: Vital Signs Temperature 36.3 C L 05/16/17 10:00 Pulse Rate 65 05/16/17 11:31 Respiratory Rate 18 05/16/17 11:31 Blood Pressure 156/64 05/16/17 11:31 O2 Sat by Pulse Oximetry (%) 95 05/15/17 21:00 Constitutional: Yes: No Distress, Other (somnolent but arousable. was up eating earlier per nurse) Respiratory: Yes: Regular, CTA Bilaterally. No: Rales, Rhonchi, Wheezes Gastrointestinal: Yes: Normal Bowel Sounds, Soft. 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 Code(s): D50.0 - Iron deficiency anemia secondary to blood loss (chronic); D50.0 - Iron deficiency anemia secondary to blood loss (chronic) (6) CAD (coronary artery disease) Code(s): I25.10 - ATHSCL HEART DISEASE OF [place] CORONARY ARTERY W/O ANG PCTRS (7) CHF (congestive heart failure) Code(s): I50.9 - HEART FAILURE, UNSPECIFIED Qualifiers: Congestive heart failure type: diastolic Congestive heart failure chronicity: chronic Qualified Code(s): I50.32 - Chronic diastolic ( congestive) heart failure; I50.32 - Chronic diastolic (congestive) heart failure ; I50.32 - Chronic diastolic (congestive) heart failure; I50.32 - Chronic diastolic (congestive) heart failure (8) Dementia Code(s): F03.90 - UNSPECIFIED DEMENTIA WITHOUT BEHAVIORAL DISTURBANCE (9) HTN (hypertension) Code(s): I10 - ESSENTIAL (PRIMARY) HYPERTENSION (10) Clostridium difficile colitis Code(s): A04.7 - ENTEROCOLITIS DUE TO CLOSTRIDIUM DIFFICILE * DO NOT USE * Assessment/Plan (1) Bradycardia Assessment/Plan: -resolved -awaiting cardiology's decision on possible pacemaker placement Code(s): R00.1 - BRADYCARDIA, UNSPECIFIED (2) Hypothermia Assessment/Plan: -resolved Code(s): T68.XXXA - HYPOTHERMIA, INITIAL ENCOUNTER (3) Renal failure (ARF), acute on chronic Assessment/Plan: -case d/w Dr Mercedes -improving, but still with hypernatremia -change to D5 1/3NS Code(s): N17.9 - ACUTE KIDNEY FAILURE, UNSPECIFIED N18.9 - CHRONIC KIDNEY DISEASE, UNSPECIFIED (4) Hyperkalemia Assessment/Plan: -resolved Code(s): E87.5 - HYPERKALEMIA (5) Anemia Assessment/Plan: -multifactorial -AOCD and GIB with CBLA -continue oral protonix and conservative management Code(s): D64.9 - ANEMIA, UNSPECIFIED Qualifiers: Anemia type: unspecified type Qualified Code(s): D64.9 - Anemia, unspecified (6) CAD (coronary artery disease) Assessment/Plan: -cardiology following Code(s): I25.10 - ATHSCL HEART DISEASE OF [place] CORONARY ARTERY W/O ANG PCTRS (7) CHF (congestive heart failure) Assessment/Plan: -lasix held -continue IVF Code(s): I50.9 - HEART FAILURE, UNSPECIFIED Qualifiers: Congestive heart failure type: unspecified congestive heart failure type Congestive heart failure chronicity: chronic Qualified Code(s): I50.9 - Heart failure, unspecified (8) Dementia Assessment/Plan: -patient is close to baseline -continue current management Code(s): F03.90 - UNSPECIFIED DEMENTIA WITHOUT BEHAVIORAL DISTURBANCE (9) HTN (hypertension) Assessment/Plan: -continue amlodipine Code(s): I10 - ESSENTIAL (PRIMARY) HYPERTENSION (10) Hypernatremia -IVF as above (11) C diff colitis -positive -ID following -continue oral vancomycin, total 14 days
[2017-05-16] MEDS: DEXTROSE 5%-1/3 NS - 500 ML IV SCH (12:18)
--- NOTE | 2017-05-16 13:01 | PN ---
Progress Note (short form) - Note Progress Note: Renal follow up for SUZI Pt seen and examined at the bedside sleeping but arouseable no overnight events Vital Signs Temperature 97.4 F L 05/16/17 10:00 Pulse Rate 65 05/16/17 11:31 Respiratory Rate 18 05/16/17 11:31 Blood Pressure 156/64 05/16/17 11:31 O2 Sat by Pulse Oximetry (%) 95 05/15/17 21:00 Intake & Output 05/13/17 05/14/17 05/15/17 05/16/17 23:59 23:59 23:59 23:59 Intake Total 416 775 625 7322 Balance 416 117 695 9293 Gen: NAD, awake and alert CVS: RRR, No M/R Lungs: Dec BS at lung bases, no rales Abd: soft NT/ND Ext: no edema CBC, BMP 05/16/17 05:35 05/16/17 05:35 Current Medications Amlodipine Besylate (Norvasc -) 5 mg PO DAILY [facility] Last Admin: 05/16/17 10:09 Dose: 5 mg Docusate Sodium (Colace -) 100 mg PO Q8H PRN PRN Reason: CONSTIPATION Dextrose/Sodium Chloride (D5-1/3ns -) 500 mls @ 83 mls/hr IV ASDIR [facility] Last Admin: 05/16/17 12:18 Dose: 83 mls/hr Nystatin (Nystop Powder -) 1 applic TP DAILY [facility] Last Admin: 05/16/17 10:11 Dose: 1 applic Pantoprazole Sodium (Protonix -) 40 mg PO DAILY [facility] Last Admin: 05/16/17 10:09 Dose: 40 mg Vancomycin HCl (Vancomycin Oral Solution) 125 mg PO Q6HPO [facility] Last Admin: 05/16/17 12:14 Dose: 125 mg A/P 86 year old gentleman with PMhx of CKD stage 4 (baseline Cr 2.1-2.6), CHF, Anemia, GI bleed, Hyperlipidiemia, Recent admission for hematuria who presented s/p fall with bradycardia, fluid overload and SUZI on CKD. #Acute on Chronic Renal insufficiency Cr with mild improvement with IVF will continue hyotonic IVF for now Trend BUN/Cr daily #Hypernatremia Serum Na not improved Change IVF to D5 1/3 NS at 84cc per hour #Hypertension Amlodpine 5mg Daily goal BP < 150/90 Thank you Teja Mercedes DO
--- NOTE | 2017-05-16 16:48 | PN ---
Progress Note, Physician Chief Complaint: Appear comfortable History of Present Illness: 86 year-old man NHR, HTN, CHF, CAD, JAQUELINE, schizophrenia & depression admitted with fall out of wheelchair with scalp laceration. He was hypothermic with rectal temp @ 91.5F, and a pulse of 35 w/ SBP in the 90's. He was given glucagon (On lopressor) & Started on TCP. He is receiving low dose dopamine in ICU. He has been treated for right leg cellulitis with marked improvement. Sinus tachy and bradycardia improved. Pacemaker implantation is indicated for sick sinus syndrome. Positive C. diff in stool noted. - Current Medication List Current Medications: Active Medications Amlodipine Besylate (Norvasc -) 5 mg PO DAILY [facility] Last Admin: 05/16/17 10:09 Dose: 5 mg Docusate Sodium (Colace -) 100 mg PO Q8H PRN PRN Reason: CONSTIPATION Dextrose/Sodium Chloride (D5-1/3ns -) 500 mls @ 83 mls/hr IV ASDIR [facility] Last Admin: 05/16/17 12:18 Dose: 83 mls/hr Nystatin (Nystop Powder -) 1 applic TP DAILY [facility] Last Admin: 05/16/17 10:11 Dose: 1 applic Pantoprazole Sodium (Protonix -) 40 mg PO DAILY [facility] Last Admin: 05/16/17 10:09 Dose: 40 mg Vancomycin HCl (Vancomycin Oral Solution) 125 mg PO Q6HPO [facility] Last Admin: 05/16/17 12:14 Dose: 125 mg - Objective Vital Signs: Vital Signs Temperature 98.2 F 05/16/17 13:49 Pulse Rate 67 05/16/17 13:49 Respiratory Rate 20 05/16/17 13:49 Blood Pressure 173/62 05/16/17 13:49 O2 Sat by Pulse Oximetry (%) 97 05/16/17 09:00 Constitutional: Yes: No Distress HENT: Yes: WNL Neck: Yes: WNL Cardiovascular: Yes: Regular Rate and Rhythm (NL S1S2, No MRHG) Respiratory: Yes: CTA Bilaterally Gastrointestinal: Yes: Soft Extremities: Yes: WNL Neurological: Yes: Aphasia Labs: CBC, BMP 05/16/17 05:35 05/16/17 05:35 INR, PTT INR 1.03 (0.82-1.09) 05/06/17 05:15 Assessment/Plan 86 year-old man NHR, HTN, CHF, CAD, JAQUELINE, schizophrenia & depression admitted with fall out of wheelchair with scalp laceration. He was hypothermic with rectal temp @ 91.5F, and a pulse of 35 w/ SBP in the 90's. He was given glucagon (On lopressor) & Started on TCP. He is receiving low dose dopamine in ICU. He has been treated for right leg cellulitis with marked improvement. Sinus tachy and bradycardia improved. Positive C. diff in stool noted. Previous sick sinus syndrome, however has been stable on telemetry Presently has no need for PPM Also, would not favor placing PPM in the setting of an active infection/contact isolation Can follow HR's clinically Call prn
--- NOTE | 2017-05-16 17:04 | PN ---
Progress Note, Physician History of Present Illness: stable no new issues - Current Medication List Current Medications: Active Medications Amlodipine Besylate (Norvasc -) 5 mg PO DAILY [facility] Last Admin: 05/16/17 10:09 Dose: 5 mg Docusate Sodium (Colace -) 100 mg PO Q8H PRN PRN Reason: CONSTIPATION Dextrose/Sodium Chloride (D5-1/3ns -) 500 mls @ 83 mls/hr IV ASDIR [facility] Last Admin: 05/16/17 12:18 Dose: 83 mls/hr Nystatin (Nystop Powder -) 1 applic TP DAILY [facility] Last Admin: 05/16/17 10:11 Dose: 1 applic Pantoprazole Sodium (Protonix -) 40 mg PO DAILY [facility] Last Admin: 05/16/17 10:09 Dose: 40 mg Vancomycin HCl (Vancomycin Oral Solution) 125 mg PO Q6HPO [facility] Last Admin: 05/16/17 12:14 Dose: 125 mg - Objective Vital Signs: Vital Signs Temperature 98.2 F 05/16/17 13:49 Pulse Rate 67 05/16/17 13:49 Respiratory Rate 20 05/16/17 13:49 Blood Pressure 173/62 05/16/17 13:49 O2 Sat by Pulse Oximetry (%) 97 05/16/17 09:00 Constitutional: Yes: No Distress, Calm Cardiovascular: Yes: Regular Rate and Rhythm Respiratory: Yes: Regular, CTA Bilaterally Gastrointestinal: Yes: Normal Bowel Sounds, Soft Musculoskeletal: Yes: WNL Extremities: Yes: WNL Neurological: Yes: Alert, Other Psychiatric: Yes: Alert Labs: CBC, BMP 05/16/17 05:35 05/16/17 05:35 INR, PTT INR 1.03 (0.82-1.09) 05/06/17 05:15 Assessment/Plan Problem List - Problems (1) Bradycardia Code(s): R00.1 - BRADYCARDIA, UNSPECIFIED (2) Hypothermia Code(s): T68.XXXA - HYPOTHERMIA, INITIAL ENCOUNTER (3) Renal failure (ARF), acute on chronic Code(s): N17.9 - ACUTE KIDNEY FAILURE, UNSPECIFIED N18.9 - CHRONIC KIDNEY DISEASE, UNSPECIFIED (4) Hyperkalemia Code(s): E87.5 - HYPERKALEMIA (5) Anemia Code(s): D64.9 - ANEMIA, UNSPECIFIED Qualifiers: 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 CORONARY ARTERY W/O ANG PCTRS (7) CHF (congestive heart failure) Code(s): I50.9 - HEART FAILURE, UNSPECIFIED Qualifiers: Congestive heart failure type: diastolic Congestive heart failure chronicity: chronic Qualified Code(s): I50.32 - Chronic diastolic ( congestive) heart failure (8) Dementia Code(s): F03.90 - UNSPECIFIED DEMENTIA WITHOUT BEHAVIORAL DISTURBANCE (9) HTN (hypertension) Code(s): I10 - ESSENTIAL (PRIMARY) HYPERTENSION 10 leukocytosis 11 cdiff plan continue on oral vanco nutrition rest as per primary team
[2017-05-17] MEDS: DEXTROSE 5%-1/3 NS - 500 ML IV SCH ×4 (00:34→14:00)
[2017-05-17] MEDS: VANCOMYCIN 250 MG/5 ML ORAL SOLUTION PO SCH ×4 (05:27→23:08)
[2017-05-17 07:31] LABS: MCH 29.6 pg (25.7-33.7); MEAN CELL VOLUME 92.5 fl (80-96); MEAN PLT VOLUME 9.1 fl (7.5-11.1); PLATELET COUNT 305 K/MM3 (134-434); RDW 16.2 % (11.9-15.9); WHITE BLOOD COUNT 13.4 K/mm3 (4.0-10.0)
[2017-05-17 08:09] LABS: ANION GAP 7 (8-16); CALCIUM 8.4 mg/dL (8.5-10.1); CO2 27 mmol/L (21-32); CREATININE 2.4 mg/dL (0.7-1.3); GLUCOSE,RANDOM 117 mg/dL (74-106); MAGNESIUM 1.9 mg/dL (1.8-2.4)
[2017-05-17] MEDS: PANTOPRAZOLE 40 MG TABLET (FP) PO SCH (10:04)
[2017-05-17] MEDS: amLODIPine BESYLATE 5 MG TABLET (FP) PO SCH (10:05)
[2017-05-17] MEDS: NYSTATIN POWDER 100,000 UNITS/GM - 15 GM TOPICAL POWDER TP SCH (10:05)
[2017-05-17 11:11] LABS: TOTAL CELLS COUNTED 100
--- NOTE | 2017-05-17 11:29 | PN ---
Progress Note (short form) - Note Progress Note: Renal follow up for SUZI Pt seen and examined at the bedside more awake and alert today no acute complaints Vital Signs Temperature 98.2 F 05/17/17 10:00 Pulse Rate 69 05/17/17 10:00 Respiratory Rate 20 05/17/17 10:00 Blood Pressure 172/76 05/17/17 10:00 O2 Sat by Pulse Oximetry (%) 98 05/16/17 21:00 Intake & Output 05/14/17 05/15/17 05/16/17 05/17/17 23:59 23:59 23:59 23:59 Intake Total 981 764 7464 581 Balance 702 078 0513 581 Gen: NAD, awake and alert CVS: RRR, No M/R Lungs: Dec BS at lung bases, no rales Abd: soft NT/ND Ext: no edema CBC, BMP 05/17/17 05:35 05/17/17 05:35 Laboratory Tests 05/17/17 05:35 Calcium 8.4 L Phosphorus 3.0 Magnesium 1.9 Current Medications Amlodipine Besylate (Norvasc -) 5 mg PO DAILY [facility] Last Admin: 05/17/17 10:05 Dose: 5 mg Docusate Sodium (Colace -) 100 mg PO Q8H PRN PRN Reason: CONSTIPATION Dextrose/Sodium Chloride (D5-1/3ns -) 500 mls @ 83 mls/hr IV ASDIR [facility] Last Admin: 05/17/17 06:08 Dose: 83 mls/hr Nystatin (Nystop Powder -) 1 applic TP DAILY [facility] Last Admin: 05/17/17 10:05 Dose: 1 applic Pantoprazole Sodium (Protonix -) 40 mg PO DAILY [facility] Last Admin: 05/17/17 10:04 Dose: 40 mg Vancomycin HCl (Vancomycin Oral Solution) 125 mg PO Q6HPO [facility] Last Admin: 05/17/17 05:27 Dose: 125 mg A/P 86 year old gentleman with PMhx of CKD stage 4 (baseline Cr 2.1-2.6), CHF, Anemia, GI bleed, Hyperlipidiemia, Recent admission for hematuria who presented s/p fall with bradycardia, fluid overload and SUZI on CKD. #Acute on Chronic Renal insufficiency Renal function now improving, now close to baseline continue hypotonic IVF #Hypernatremia continue 1/3 NS oral water intake as tolerated #Hypertension Amlodpine 5mg Daily goal BP < 150/90 Thank you Teja Mercedes DO
--- NOTE | 2017-05-17 14:40 | PN ---
Progress Note, Physician Chief Complaint: Patient awake but not interacting with me today. - Current Medication List Current Medications: Active Medications Amlodipine Besylate (Norvasc -) 5 mg PO DAILY [facility] Last Admin: 05/17/17 10:05 Dose: 5 mg Docusate Sodium (Colace -) 100 mg PO Q8H PRN PRN Reason: CONSTIPATION Dextrose/Sodium Chloride (D5-1/3ns -) 500 mls @ 83 mls/hr IV ASDIR [facility] Last Admin: 05/17/17 06:08 Dose: 83 mls/hr Nystatin (Nystop Powder -) 1 applic TP DAILY [facility] Last Admin: 05/17/17 10:05 Dose: 1 applic Pantoprazole Sodium (Protonix -) 40 mg PO DAILY [facility] Last Admin: 05/17/17 10:04 Dose: 40 mg Vancomycin HCl (Vancomycin Oral Solution) 125 mg PO Q6HPO [facility] Last Admin: 05/17/17 11:47 Dose: 125 mg - Objective Vital Signs: Vital Signs Temperature 36.8 C 05/17/17 13:49 Pulse Rate 75 05/17/17 13:49 Respiratory Rate 20 05/17/17 13:49 Blood Pressure 162/69 05/17/17 13:49 O2 Sat by Pulse Oximetry (%) 97 05/17/17 09:00 Constitutional: Yes: Well Nourished, No Distress, Calm Neck: Yes: Tenderness Cardiovascular: No: Gallop, Murmur, Rub Respiratory: Yes: Regular, CTA Bilaterally. No: Rales, Rhonchi, Wheezes Gastrointestinal: Yes: Normal Bowel Sounds, Soft. 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 Code(s): D50.0 - Iron deficiency anemia secondary to blood loss (chronic); D50.0 - Iron deficiency anemia secondary to blood loss (chronic) (6) CAD (coronary artery disease) Code(s): I25.10 - ATHSCL HEART DISEASE OF [place] CORONARY ARTERY W/O ANG PCTRS (7) CHF (congestive heart failure) Code(s): I50.9 - HEART FAILURE, UNSPECIFIED Qualifiers: Congestive heart failure type: diastolic Congestive heart failure chronicity: chronic Qualified Code(s): I50.32 - Chronic diastolic ( congestive) heart failure; I50.32 - Chronic diastolic (congestive) heart failure ; I50.32 - Chronic diastolic (congestive) heart failure; I50.32 - Chronic diastolic (congestive) heart failure (8) Dementia Code(s): F03.90 - UNSPECIFIED DEMENTIA WITHOUT BEHAVIORAL DISTURBANCE (9) HTN (hypertension) Code(s): I10 - ESSENTIAL (PRIMARY) HYPERTENSION (10) Clostridium difficile colitis Code(s): A04.7 - ENTEROCOLITIS DUE TO CLOSTRIDIUM DIFFICILE * DO NOT USE * Assessment/Plan (1) Bradycardia Assessment/Plan: -resolved, no pacemaker per cardiology Code(s): R00.1 - BRADYCARDIA, UNSPECIFIED (2) Hypothermia Assessment/Plan: -resolved Code(s): T68.XXXA - HYPOTHERMIA, INITIAL ENCOUNTER (3) Renal failure (ARF), acute on chronic Assessment/Plan: -case d/w Dr Mercedes -continues to improve -continue D5 /3NS Code(s): N17.9 - ACUTE KIDNEY FAILURE, UNSPECIFIED N18.9 - CHRONIC KIDNEY DISEASE, UNSPECIFIED (4) Hyperkalemia Assessment/Plan: -resolved Code(s): E87.5 - HYPERKALEMIA (5) Anemia Assessment/Plan: -multifactorial -AOCD and GIB with CBLA -continue oral protonix and conservative management Code(s): D64.9 - ANEMIA, UNSPECIFIED Qualifiers: Anemia type: unspecified type Qualified Code(s): D64.9 - Anemia, unspecified (6) CAD (coronary artery disease) Assessment/Plan: -cardiology following Code(s): I25.10 - ATHSCL HEART DISEASE OF [place] CORONARY ARTERY W/O ANG PCTRS (7) CHF (congestive heart failure) Assessment/Plan: -lasix held -continue IVF Code(s): I50.9 - HEART FAILURE, UNSPECIFIED Qualifiers: Congestive heart failure type: unspecified congestive heart failure type Congestive heart failure chronicity: chronic Qualified Code(s): I50.9 - Heart failure, unspecified (8) Dementia Assessment/Plan: -patient is close to baseline -continue current management Code(s): F03.90 - UNSPECIFIED DEMENTIA WITHOUT BEHAVIORAL DISTURBANCE (9) HTN (hypertension) Assessment/Plan: -continue amlodipine Code(s): I10 - ESSENTIAL (PRIMARY) HYPERTENSION (10) Hypernatremia -IVF as above (11) C diff colitis -positive -ID following -continue oral vancomycin, total 14 days
--- NOTE | 2017-05-17 15:07 | PN ---
Progress Note, Physician History of Present Illness: patient with no specific issues no new problems - Current Medication List Current Medications: Active Medications Amlodipine Besylate (Norvasc -) 5 mg PO DAILY [facility] Last Admin: 05/17/17 10:05 Dose: 5 mg Docusate Sodium (Colace -) 100 mg PO Q8H PRN PRN Reason: CONSTIPATION Dextrose/Sodium Chloride (D5-1/3ns -) 500 mls @ 83 mls/hr IV ASDIR [facility] Last Admin: 05/17/17 06:08 Dose: 83 mls/hr Nystatin (Nystop Powder -) 1 applic TP DAILY [facility] Last Admin: 05/17/17 10:05 Dose: 1 applic Pantoprazole Sodium (Protonix -) 40 mg PO DAILY [facility] Last Admin: 05/17/17 10:04 Dose: 40 mg Vancomycin HCl (Vancomycin Oral Solution) 125 mg PO Q6HPO [facility] Last Admin: 05/17/17 11:47 Dose: 125 mg - Objective Vital Signs: Vital Signs Temperature 98.2 F 05/17/17 13:49 Pulse Rate 75 05/17/17 13:49 Respiratory Rate 20 05/17/17 13:49 Blood Pressure 162/69 05/17/17 13:49 O2 Sat by Pulse Oximetry (%) 97 05/17/17 09:00 Constitutional: Yes: No Distress, Calm Cardiovascular: Yes: Regular Rate and Rhythm Respiratory: Yes: Regular, CTA Bilaterally Gastrointestinal: Yes: Normal Bowel Sounds, Soft Musculoskeletal: Yes: WNL Extremities: Yes: WNL Neurological: Yes: Alert, Other Psychiatric: Yes: Alert, Other Labs: CBC, BMP 05/17/17 05:35 05/17/17 05:35 INR, PTT INR 1.03 (0.82-1.09) 05/06/17 05:15 Assessment/Plan Problem List - Problems (1) Bradycardia Code(s): R00.1 - BRADYCARDIA, UNSPECIFIED (2) Hypothermia Code(s): T68.XXXA - HYPOTHERMIA, INITIAL ENCOUNTER (3) Renal failure (ARF), acute on chronic Code(s): N17.9 - ACUTE KIDNEY FAILURE, UNSPECIFIED N18.9 - CHRONIC KIDNEY DISEASE, UNSPECIFIED (4) Hyperkalemia Code(s): E87.5 - HYPERKALEMIA (5) Anemia Code(s): D64.9 - ANEMIA, UNSPECIFIED Qualifiers: 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 Code(s): D50.0 - Iron deficiency anemia secondary to blood loss (chronic) (6) CAD (coronary artery disease) Code(s): I25.10 - ATHSCL HEART DISEASE OF [place] CORONARY ARTERY W/O ANG PCTRS (7) CHF (congestive heart failure) Code(s): I50.9 - HEART FAILURE, UNSPECIFIED Qualifiers: Congestive heart failure type: diastolic Congestive heart failure chronicity: chronic Qualified Code(s): I50.32 - Chronic diastolic ( congestive) heart failure (8) Dementia Code(s): F03.90 - UNSPECIFIED DEMENTIA WITHOUT BEHAVIORAL DISTURBANCE (9) HTN (hypertension) Code(s): I10 - ESSENTIAL (PRIMARY) HYPERTENSION 10 leukocytosis 11 cdiff plan continue on oral vanco nutrition rest as per primary team
--- NOTE | 2017-05-17 16:15 | PN ---
Progress Note, Physician Chief Complaint: Appear comfortable History of Present Illness: 86 year-old man NHR, HTN, CHF, CAD, JAQUELINE, schizophrenia & depression admitted with fall out of wheelchair with scalp laceration. He was hypothermic with rectal temp @ 91.5F, and a pulse of 35 w/ SBP in the 90's. He was given glucagon (On lopressor) & Started on TCP. He is receiving low dose dopamine in ICU. He has been treated for right leg cellulitis with marked improvement. Sinus tachy and bradycardia improved. Pacemaker implantation is indicated for sick sinus syndrome. Positive C. diff in stool noted. - Current Medication List Current Medications: Active Medications Amlodipine Besylate (Norvasc -) 5 mg PO DAILY [facility] Last Admin: 05/17/17 10:05 Dose: 5 mg Docusate Sodium (Colace -) 100 mg PO Q8H PRN PRN Reason: CONSTIPATION Dextrose/Sodium Chloride (D5-1/3ns -) 500 mls @ 83 mls/hr IV ASDIR [facility] Last Admin: 05/17/17 06:08 Dose: 83 mls/hr Nystatin (Nystop Powder -) 1 applic TP DAILY [facility] Last Admin: 05/17/17 10:05 Dose: 1 applic Pantoprazole Sodium (Protonix -) 40 mg PO DAILY [facility] Last Admin: 05/17/17 10:04 Dose: 40 mg Vancomycin HCl (Vancomycin Oral Solution) 125 mg PO Q6HPO [facility] Last Admin: 05/17/17 11:47 Dose: 125 mg - Objective Vital Signs: Vital Signs Temperature 98.2 F 05/17/17 13:49 Pulse Rate 75 05/17/17 13:49 Respiratory Rate 20 05/17/17 13:49 Blood Pressure 162/69 05/17/17 13:49 O2 Sat by Pulse Oximetry (%) 97 05/17/17 09:00 Constitutional: Yes: No Distress Neck: Yes: WNL Cardiovascular: Yes: Regular Rate and Rhythm Respiratory: Yes: CTA Bilaterally Gastrointestinal: Yes: Soft Extremities: Yes: WNL Edema: LLE: Trace, RLE: Trace Neurological: Yes: Aphasia Labs: CBC, BMP 05/17/17 05:35 05/17/17 05:35 INR, PTT INR 1.03 (0.82-1.09) 05/06/17 05:15 Assessment/Plan 86 year-old man NHR, HTN, CHF, CAD, JAQUELINE, schizophrenia & depression admitted with fall out of wheelchair with scalp laceration. He was hypothermic with rectal temp @ 91.5F, and a pulse of 35 w/ SBP in the 90's. He was given glucagon (On lopressor) & Started on TCP. He is receiving low dose dopamine in ICU. He has been treated for right leg cellulitis with marked improvement. Sinus tachy and bradycardia improved. Positive C. diff in stool noted. Previous sick sinus syndrome, however has been stable on telemetry Also, would not favor placing PPM in the setting of an active infection/contact isolation The heart rates have been stable on telem. No need for a pacemaker at this time Call us prn
[2017-05-18] MEDS: DEXTROSE 5%-1/3 NS - 500 ML IV SCH ×3 (01:50→10:51)
[2017-05-18] MEDS: VANCOMYCIN 250 MG/5 ML ORAL SOLUTION PO SCH ×4 (06:19→23:25)
[2017-05-18 06:37] LABS: BASOPHIL 0.5 % (0-2.0); EOSINOPHIL 1.9 % (0-4.5); MCH 29.4 pg (25.7-33.7); MCHC 31.9 g/dl (32.0-35.9); MEAN CELL VOLUME 92.1 fl (80-96); MEAN PLT VOLUME 8.9 fl (7.5-11.1); NEUTROPHILS 86.3 % (42.8-82.8); PLATELET COUNT 294 K/MM3 (134-434); RDW 16.3 % (11.9-15.9); WHITE BLOOD COUNT 13.2 K/mm3 (4.0-10.0)
[2017-05-18 07:22] LABS: ANION GAP 8 (8-16); CALCIUM 8.1 mg/dL (8.5-10.1); CO2 26 mmol/L (21-32); CREATININE 2.6 mg/dL (0.7-1.3); GLUCOSE,RANDOM 110 mg/dL (74-106); MAGNESIUM 1.9 mg/dL (1.8-2.4); PHOSPHOROUS 2.8 mg/dL (2.5-4.9)
--- NOTE | 2017-05-18 10:34 | PN ---
Progress Note, Physician Chief Complaint: Unable to obtain secondary to dementia - Current Medication List Current Medications: Active Medications Amlodipine Besylate (Norvasc -) 5 mg PO DAILY [facility] Last Admin: 05/17/17 10:05 Dose: 5 mg Docusate Sodium (Colace -) 100 mg PO Q8H PRN PRN Reason: CONSTIPATION Dextrose/Sodium Chloride (D5-1/3ns -) 500 mls @ 83 mls/hr IV ASDIR [facility] Last Admin: 05/18/17 06:21 Dose: 83 mls/hr Nystatin (Nystop Powder -) 1 applic TP DAILY [facility] Last Admin: 05/17/17 10:05 Dose: 1 applic Pantoprazole Sodium (Protonix -) 40 mg PO DAILY [facility] Last Admin: 05/17/17 10:04 Dose: 40 mg Vancomycin HCl (Vancomycin Oral Solution) 125 mg PO Q6HPO [facility] Last Admin: 05/18/17 06:19 Dose: 125 mg - Objective Vital Signs: Vital Signs Temperature 37.7 C H 05/18/17 06:00 Pulse Rate 71 05/18/17 06:00 Respiratory Rate 20 05/18/17 06:00 Blood Pressure 150/68 05/18/17 06:00 O2 Sat by Pulse Oximetry (%) 97 05/17/17 21:00 Constitutional: Yes: Well Nourished, No Distress, Calm Cardiovascular: Yes: Regular Rate and Rhythm. No: Gallop, Murmur, Rub Respiratory: Yes: Regular, CTA Bilaterally. No: Rales, Rhonchi, Wheezes Gastrointestinal: Yes: Normal Bowel Sounds, Soft. 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 Code(s): D50.0 - Iron deficiency anemia secondary to blood loss (chronic); D50.0 - Iron deficiency anemia secondary to blood loss (chronic) (6) CAD (coronary artery disease) Code(s): I25.10 - ATHSCL HEART DISEASE OF [place] CORONARY ARTERY W/O ANG PCTRS (7) CHF (congestive heart failure) Code(s): I50.9 - HEART FAILURE, UNSPECIFIED Qualifiers: Congestive heart failure type: diastolic Congestive heart failure chronicity: chronic Qualified Code(s): I50.32 - Chronic diastolic ( congestive) heart failure; I50.32 - Chronic diastolic (congestive) heart failure ; I50.32 - Chronic diastolic (congestive) heart failure; I50.32 - Chronic diastolic (congestive) heart failure (8) Dementia Code(s): F03.90 - UNSPECIFIED DEMENTIA WITHOUT BEHAVIORAL DISTURBANCE (9) HTN (hypertension) Code(s): I10 - ESSENTIAL (PRIMARY) HYPERTENSION (10) Clostridium difficile colitis Code(s): A04.7 - ENTEROCOLITIS DUE TO CLOSTRIDIUM DIFFICILE * DO NOT USE * Assessment/Plan (1) Bradycardia Assessment/Plan: -resolved, no pacemaker per cardiology Code(s): R00.1 - BRADYCARDIA, UNSPECIFIED (2) Hypothermia Assessment/Plan: -resolved Code(s): T68.XXXA - HYPOTHERMIA, INITIAL ENCOUNTER (3) Renal failure (ARF), acute on chronic Assessment/Plan: -case d/w Dr Mercedes -stable -does not sound fluid overloaded -continue IVF Code(s): N17.9 - ACUTE KIDNEY FAILURE, UNSPECIFIED N18.9 - CHRONIC KIDNEY DISEASE, UNSPECIFIED (4) Hyperkalemia Assessment/Plan: -resolved Code(s): E87.5 - HYPERKALEMIA (5) Anemia Assessment/Plan: -multifactorial -AOCD and GIB with CBLA -continue oral protonix and conservative management Code(s): D64.9 - ANEMIA, UNSPECIFIED Qualifiers: Anemia type: unspecified type Qualified Code(s): D64.9 - Anemia, unspecified (6) CAD (coronary artery disease) Assessment/Plan: -cardiology following Code(s): I25.10 - ATHSCL HEART DISEASE OF [place] CORONARY ARTERY W/O ANG PCTRS (7) CHF (congestive heart failure) Assessment/Plan: -lasix held -continue IVF Code(s): I50.9 - HEART FAILURE, UNSPECIFIED Qualifiers: Congestive heart failure type: unspecified congestive heart failure type Congestive heart failure chronicity: chronic Qualified Code(s): I50.9 - Heart failure, unspecified (8) Dementia Assessment/Plan: -patient is close to baseline -continue current management Code(s): F03.90 - UNSPECIFIED DEMENTIA WITHOUT BEHAVIORAL DISTURBANCE (9) HTN (hypertension) Assessment/Plan: -continue amlodipine Code(s): I10 - ESSENTIAL (PRIMARY) HYPERTENSION (10) Hypernatremia -IVF as above -improving (11) C diff colitis -positive -ID following -continue oral vancomycin, total 14 days Dispo -continue IVF currently -would monitor off of IVF for 24 hours before discharge -prior to discharge, discuss lasix dosing with nephrology -possible weekend discharge
[2017-05-18] MEDS: NYSTATIN POWDER 100,000 UNITS/GM - 15 GM TOPICAL POWDER TP SCH (10:51)
[2017-05-18] MEDS: amLODIPine BESYLATE 5 MG TABLET (FP) PO SCH (10:51)
[2017-05-18] MEDS: PANTOPRAZOLE 40 MG TABLET (FP) PO SCH (10:51)
[2017-05-18] MEDS ORDERED: DEXTROSE 5%-1/3 NS - 500 ML IV SCH (13:26)
--- NOTE | 2017-05-18 14:02 | PN ---
Progress Note (short form) - Note Progress Note: Renal follow up for SUZI Pt seen and examined at the bedside awake, but lethargic no overnight events arms swollen making urine on IVF Vital Signs Temperature 99.0 F 05/18/17 10:00 Pulse Rate 76 05/18/17 10:00 Respiratory Rate 19 05/18/17 10:00 Blood Pressure 137/74 05/18/17 10:00 O2 Sat by Pulse Oximetry (%) 97 05/17/17 21:00 Intake & Output 05/15/17 05/16/17 05/17/17 05/18/17 23:59 23:59 23:59 23:59 Intake Total 800 2933 1577 996 Balance 800 2933 1577 996 Weight 166 lb Gen: NAD, awake and alert CVS: RRR, No M/R Lungs: Dec BS at lung bases, no rales Abd: soft NT/ND Ext: no edema CBC, BMP 05/18/17 05:30 05/18/17 05:30 Laboratory Tests 05/18/17 05:30 Calcium 8.1 L Phosphorus 2.8 Magnesium 1.9 Current Medications Amlodipine Besylate (Norvasc -) 5 mg PO DAILY [facility] Last Admin: 05/18/17 10:51 Dose: 5 mg Docusate Sodium (Colace -) 100 mg PO Q8H PRN PRN Reason: CONSTIPATION Dextrose/Sodium Chloride (D5-1/3ns -) 500 mls @ 60 mls/hr IV ASDIR [facility] Nystatin (Nystop Powder -) 1 applic TP DAILY [facility] Last Admin: 05/18/17 10:51 Dose: 1 applic Pantoprazole Sodium (Protonix -) 40 mg PO DAILY [facility] Last Admin: 05/18/17 10:51 Dose: 40 mg Vancomycin HCl (Vancomycin Oral Solution) 125 mg PO Q6HPO [facility] Last Admin: 05/18/17 06:19 Dose: 125 mg A/P 86 year old gentleman with PMhx of CKD stage 4 (baseline Cr 2.1-2.6), CHF, Anemia, GI bleed, Hyperlipidiemia, Recent admission for hematuria who presented s/p fall with bradycardia, fluid overload and SUZI on CKD. #Acute on Chronic Renal insufficiency Renal function improved making urine will decrease rate of IVF as pt with UE edema #Hypernatremia continue 1/3 NS oral water intake as tolerated #Hypertension Amlodpine 5mg Daily goal BP < 150/90 #bilateral arm edema likely 3rd spacing from low albumin and IVF will check doppler of arms to r/o dvt case discussed with PMD Thank you Teja Mercedes DO
--- NOTE | 2017-05-18 16:19 | PN ---
Progress Note, Physician History of Present Illness: awake and lethargic - Current Medication List Current Medications: Active Medications Amlodipine Besylate (Norvasc -) 5 mg PO DAILY [facility] Last Admin: 05/18/17 10:51 Dose: 5 mg Docusate Sodium (Colace -) 100 mg PO Q8H PRN PRN Reason: CONSTIPATION Dextrose/Sodium Chloride (D5-1/3ns -) 500 mls @ 60 mls/hr IV ASDIR [facility] Last Admin: 05/18/17 13:30 Dose: 60 mls/hr Nystatin (Nystop Powder -) 1 applic TP DAILY [facility] Last Admin: 05/18/17 10:51 Dose: 1 applic Pantoprazole Sodium (Protonix -) 40 mg PO DAILY [facility] Last Admin: 05/18/17 10:51 Dose: 40 mg Vancomycin HCl (Vancomycin Oral Solution) 125 mg PO Q6HPO [facility] Last Admin: 05/18/17 12:00 Dose: 125 mg - Objective Vital Signs: Vital Signs Temperature 98.2 F 05/18/17 15:11 Pulse Rate 70 05/18/17 15:11 Respiratory Rate 16 05/18/17 15:11 Blood Pressure 147/64 05/18/17 15:11 O2 Sat by Pulse Oximetry (%) 98 05/18/17 09:00 Constitutional: Yes: No Distress, Calm Cardiovascular: Yes: S1, S2 Respiratory: Yes: Regular Gastrointestinal: Yes: Normal Bowel Sounds, Soft Musculoskeletal: Yes: Other Neurological: Yes: Alert, Other Psychiatric: Yes: Other Labs: CBC, BMP 05/18/17 05:30 05/18/17 05:30 INR, PTT INR 1.03 (0.82-1.09) 05/06/17 05:15 Assessment/Plan Problem List - Problems (1) Bradycardia Code(s): R00.1 - BRADYCARDIA, UNSPECIFIED (2) Hypothermia Code(s): T68.XXXA - HYPOTHERMIA, INITIAL ENCOUNTER (3) Renal failure (ARF), acute on chronic Code(s): N17.9 - ACUTE KIDNEY FAILURE, UNSPECIFIED N18.9 - CHRONIC KIDNEY DISEASE, UNSPECIFIED (4) Hyperkalemia Code(s): E87.5 - HYPERKALEMIA (5) Anemia Code(s): D64.9 - ANEMIA, UNSPECIFIED Qualifiers: 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 Code(s): D50.0 - Iron deficiency anemia secondary to blood loss (chronic) (6) CAD (coronary artery disease) Code(s): I25.10 - ATHSCL HEART DISEASE OF [place] CORONARY ARTERY W/O ANG PCTRS (7) CHF (congestive heart failure) Code(s): I50.9 - HEART FAILURE, UNSPECIFIED Qualifiers: Congestive heart failure type: diastolic Congestive heart failure chronicity: chronic Qualified Code(s): I50.32 - Chronic diastolic ( congestive) heart failure (8) Dementia Code(s): F03.90 - UNSPECIFIED DEMENTIA WITHOUT BEHAVIORAL DISTURBANCE (9) HTN (hypertension) Code(s): I10 - ESSENTIAL (PRIMARY) HYPERTENSION 10 leukocytosis 11 cdiff plan continue on oral vanco nutrition rest as per primary team wbc has slightly increased close watch
[2017-05-18] MEDS ORDERED: PT OWN MED DRAWER 7, Y5N ONE (22:57)
[2017-05-19] MEDS: VANCOMYCIN 250 MG/5 ML ORAL SOLUTION PO SCH ×3 (05:16→17:59)
[2017-05-19 07:12] LABS: ANION GAP 8 (8-16); CALCIUM 8.2 mg/dL (8.5-10.1); CO2 25 mmol/L (21-32); CREATININE 2.6 mg/dL (0.7-1.3); GLUCOSE,RANDOM 108 mg/dL (74-106); MAGNESIUM 1.8 mg/dL (1.8-2.4); PHOSPHOROUS 3.2 mg/dL (2.5-4.9)
[2017-05-19 07:16] LABS: BASOPHIL 0.4 % (0-2.0); EOSINOPHIL 1.8 % (0-4.5); MCH 29.3 pg (25.7-33.7); MCHC 31.8 g/dl (32.0-35.9); MEAN CELL VOLUME 92.1 fl (80-96); MEAN PLT VOLUME 9.1 fl (7.5-11.1); NEUTROPHILS 86.9 % (42.8-82.8); PLATELET COUNT 283 K/MM3 (134-434); RDW 15.9 % (11.9-15.9); WHITE BLOOD COUNT 11.3 K/mm3 (4.0-10.0)
[2017-05-19] MEDS: amLODIPine BESYLATE 10 MG TABLET (FP) PO SCH (10:18)
[2017-05-19] MEDS: NYSTATIN POWDER 100,000 UNITS/GM - 15 GM TOPICAL POWDER TP SCH (10:18)
[2017-05-19] MEDS: PANTOPRAZOLE 40 MG TABLET (FP) PO SCH (10:18)
--- NOTE | 2017-05-19 11:28 | PN ---
Progress Note (short form) - Note Progress Note: Renal follow up for SUZI Pt seen and examined at the bedside sleeping, no overnight events Vital Signs Temperature 98.4 F 05/19/17 05:35 Pulse Rate 73 05/19/17 05:35 Respiratory Rate 16 05/19/17 05:35 Blood Pressure 164/71 05/19/17 05:35 O2 Sat by Pulse Oximetry (%) 97 05/18/17 21:00 Intake & Output 05/16/17 05/17/17 05/18/17 05/19/17 23:59 23:59 23:59 23:59 Intake Total 2933 1577 1296 420 Balance 2933 1577 1296 420 Weight 166 lb Gen: NAD, awake and alert CVS: RRR, No M/R Lungs: Dec BS at lung bases, no rales Abd: soft NT/ND Ext: no edema CBC, BMP 05/19/17 06:30 05/19/17 06:30 Laboratory Tests 05/19/17 06:30 Calcium 8.2 L Phosphorus 3.2 Magnesium 1.8 Current Medications Amlodipine Besylate (Norvasc -) 10 mg PO DAILY [facility] Last Admin: 05/19/17 10:18 Dose: 10 mg Docusate Sodium (Colace -) 100 mg PO Q8H PRN PRN Reason: CONSTIPATION Dextrose/Sodium Chloride (D5-1/3ns -) 500 mls @ 60 mls/hr IV ASDIR [facility] Last Admin: 05/18/17 13:30 Dose: 60 mls/hr Nystatin (Nystop Powder -) 1 applic TP DAILY [facility] Last Admin: 05/19/17 10:18 Dose: 1 applic Pantoprazole Sodium (Protonix -) 40 mg PO DAILY [facility] Last Admin: 05/19/17 10:18 Dose: 40 mg Vancomycin HCl (Vancomycin Oral Solution) 125 mg PO Q6HPO [facility] Last Admin: 05/19/17 05:16 Dose: 125 mg A/P 86 year old gentleman with PMhx of CKD stage 4 (baseline Cr 2.1-2.6), CHF, Anemia, GI bleed, Hyperlipidiemia, Recent admission for hematuria who presented s/p fall with bradycardia, fluid overload and SUZI on CKD. #Acute on Chronic Renal insufficiency Renal function improving, no stable over the last 48 hours d/c IVF, trend BUN/Cr with just oral intake #Hypernatremia free water as tolerated trend Na levels #Hypertension Amlodpine increased to 10mg Daily goal BP < 150/90 #bilateral arm edema likely 3rd spacing from low albumin and IVF will check doppler of arms to r/o dvt - pending Thank you Teja Mercedes DO
--- NOTE | 2017-05-19 13:17 | PN ---
Progress Note (short form) - Note Progress Note: Non verbal No acute overnight. - Current Medication List Current Medications: Active Medications Amlodipine Besylate (Norvasc -) 5 mg PO DAILY [facility] Last Admin: 05/17/17 10:05 Dose: 5 mg Docusate Sodium (Colace -) 100 mg PO Q8H PRN PRN Reason: CONSTIPATION Dextrose/Sodium Chloride (D5-1/3ns -) 500 mls @ 83 mls/hr IV ASDIR [facility] Last Admin: 05/18/17 06:21 Dose: 83 mls/hr Nystatin (Nystop Powder -) 1 applic TP DAILY [facility] Last Admin: 05/17/17 10:05 Dose: 1 applic Pantoprazole Sodium (Protonix -) 40 mg PO DAILY [facility] Last Admin: 05/17/17 10:04 Dose: 40 mg Vancomycin HCl (Vancomycin Oral Solution) 125 mg PO Q6HPO [facility] Last Admin: 05/18/17 06:19 Dose: 125 mg - Objective Vital Signs: Vital Signs Period Temp Pulse Resp BP Sys/Jeronimo Pulse Ox Last 24 Hr 97.3 F-98.4 F 66-73 16-20 144-177/64-91 96-97 Constitutional: Yes: Well Nourished, No Distress, Calm Cardiovascular: Yes: Regular Rate and Rhythm. No: Gallop, Murmur, Rub Respiratory: Yes: Regular, CTA Bilaterally. No: Rales, Rhonchi, Wheezes Gastrointestinal: Yes: Normal Bowel Sounds, Soft. 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 Code(s): D50.0 - Iron deficiency anemia secondary to blood loss (chronic); D50.0 - Iron deficiency anemia secondary to blood loss (chronic) (6) CAD (coronary artery disease) Code(s): I25.10 - ATHSCL HEART DISEASE OF [place] CORONARY ARTERY W/O ANG PCTRS (7) CHF (congestive heart failure) Code(s): I50.9 - HEART FAILURE, UNSPECIFIED Qualifiers: Congestive heart failure type: diastolic Congestive heart failure chronicity: chronic Qualified Code(s): I50.32 - Chronic diastolic ( congestive) heart failure; I50.32 - Chronic diastolic (congestive) heart failure ; I50.32 - Chronic diastolic (congestive) heart failure; I50.32 - Chronic diastolic (congestive) heart failure (8) Dementia Code(s): F03.90 - UNSPECIFIED DEMENTIA WITHOUT BEHAVIORAL DISTURBANCE (9) HTN (hypertension) Code(s): I10 - ESSENTIAL (PRIMARY) HYPERTENSION (10) Clostridium difficile colitis Code(s): A04.7 - ENTEROCOLITIS DUE TO CLOSTRIDIUM DIFFICILE * DO NOT USE * Assessment/Plan (1) Bradycardia Assessment/Plan: -resolved, no pacemaker per cardiology Code(s): R00.1 - BRADYCARDIA, UNSPECIFIED (2) Hypothermia Assessment/Plan: -resolved Code(s): T68.XXXA - HYPOTHERMIA, INITIAL ENCOUNTER (3) Renal failure (ARF), acute on chronic Assessment/Plan: -Monitor off IV fluids -Renal follow up appreciated. Code(s): N17.9 - ACUTE KIDNEY FAILURE, UNSPECIFIED N18.9 - CHRONIC KIDNEY DISEASE, UNSPECIFIED (4) Hyperkalemia Assessment/Plan: -resolved Code(s): E87.5 - HYPERKALEMIA (5) Anemia Assessment/Plan: -multifactorial -AOCD and GIB with CBLA -continue oral protonix and conservative management Code(s): D64.9 - ANEMIA, UNSPECIFIED Qualifiers: Anemia type: unspecified type Qualified Code(s): D64.9 - Anemia, unspecified (6) CAD (coronary artery disease) Assessment/Plan: -cardiology following Code(s): I25.10 - ATHSCL HEART DISEASE OF [place] CORONARY ARTERY W/O ANG PCTRS (7) CHF (congestive heart failure) Assessment/Plan: -lasix held Code(s): I50.9 - HEART FAILURE, UNSPECIFIED Qualifiers: Congestive heart failure type: unspecified congestive heart failure type Congestive heart failure chronicity: chronic Qualified Code(s): I50.9 - Heart failure, unspecified (8) Dementia Assessment/Plan: -patient is close to baseline -continue current management Code(s): F03.90 - UNSPECIFIED DEMENTIA WITHOUT BEHAVIORAL DISTURBANCE (9) HTN (hypertension) Assessment/Plan: -continue amlodipine Code(s): I10 - ESSENTIAL (PRIMARY) HYPERTENSION (10) Hypernatremia -Resolved. - Monitor off IV fluids (11) C diff colitis -positive -ID following -continue oral vancomycin, total 14 days
--- NOTE | 2017-05-19 14:04 | PN ---
Progress Note, Physician History of Present Illness: awake no new issues - Current Medication List Current Medications: Active Medications Amlodipine Besylate (Norvasc -) 10 mg PO DAILY [facility] Last Admin: 05/19/17 10:18 Dose: 10 mg Docusate Sodium (Colace -) 100 mg PO Q8H PRN PRN Reason: CONSTIPATION Nystatin (Nystop Powder -) 1 applic TP DAILY [facility] Last Admin: 05/19/17 10:18 Dose: 1 applic Pantoprazole Sodium (Protonix -) 40 mg PO DAILY [facility] Last Admin: 05/19/17 10:18 Dose: 40 mg Vancomycin HCl (Vancomycin Oral Solution) 125 mg PO Q6HPO [facility] Last Admin: 05/19/17 12:20 Dose: 125 mg - Objective Vital Signs: Vital Signs Temperature 98.1 F 05/19/17 10:00 Pulse Rate 66 05/19/17 10:00 Respiratory Rate 16 05/19/17 10:00 Blood Pressure 144/65 05/19/17 10:00 O2 Sat by Pulse Oximetry (%) 96 05/19/17 10:00 Constitutional: Yes: No Distress, Calm Cardiovascular: Yes: Regular Rate and Rhythm Respiratory: Yes: Regular, CTA Bilaterally Gastrointestinal: Yes: Normal Bowel Sounds, Soft Musculoskeletal: Yes: WNL Extremities: Yes: WNL Neurological: Yes: Alert Psychiatric: Yes: Alert Labs: CBC, BMP 05/19/17 06:30 05/19/17 06:30 INR, PTT INR 1.03 (0.82-1.09) 05/06/17 05:15 Assessment/Plan Problem List - Problems (1) Bradycardia Code(s): R00.1 - BRADYCARDIA, UNSPECIFIED (2) Hypothermia Code(s): T68.XXXA - HYPOTHERMIA, INITIAL ENCOUNTER (3) Renal failure (ARF), acute on chronic Code(s): N17.9 - ACUTE KIDNEY FAILURE, UNSPECIFIED N18.9 - CHRONIC KIDNEY DISEASE, UNSPECIFIED (4) Hyperkalemia Code(s): E87.5 - HYPERKALEMIA (5) Anemia Code(s): D64.9 - ANEMIA, UNSPECIFIED Qualifiers: 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 Code(s): D50.0 - Iron deficiency anemia secondary to blood loss (chronic) (6) CAD (coronary artery disease) Code(s): I25.10 - ATHSCL HEART DISEASE OF [place] CORONARY ARTERY W/O ANG PCTRS (7) CHF (congestive heart failure) Code(s): I50.9 - HEART FAILURE, UNSPECIFIED Qualifiers: Congestive heart failure type: diastolic Congestive heart failure chronicity: chronic Qualified Code(s): I50.32 - Chronic diastolic ( congestive) heart failure (8) Dementia Code(s): F03.90 - UNSPECIFIED DEMENTIA WITHOUT BEHAVIORAL DISTURBANCE (9) HTN (hypertension) Code(s): I10 - ESSENTIAL (PRIMARY) HYPERTENSION 10 leukocytosis 11 cdiff plan continue on oral vanco nutrition rest as per primary team complete a total of 14 days and stop
[2017-05-20] MEDS: VANCOMYCIN 250 MG/5 ML ORAL SOLUTION PO SCH ×4 (00:42→17:24)
[2017-05-20 07:16] LABS: MCH 29.8 pg (25.7-33.7); MCHC 32.6 g/dl (32.0-35.9); MEAN CELL VOLUME 91.5 fl (80-96); MEAN PLT VOLUME 9.1 fl (7.5-11.1); PLATELET COUNT 279 K/MM3 (134-434); RDW 15.4 % (11.9-15.9); WHITE BLOOD COUNT 9.4 K/mm3 (4.0-10.0)
[2017-05-20 07:24] LABS: ANION GAP 8 (8-16); CALCIUM 8.5 mg/dL (8.5-10.1); CO2 25 mmol/L (21-32); GLUCOSE,RANDOM 99 mg/dL (74-106)
[2017-05-20 07:25] LABS: CREATININE 2.5 mg/dL (0.7-1.3)
[2017-05-20] MEDS ORDERED: PT OWN MED DRAWER 7, Y5N ONE ×3 (09:50→12:23)
[2017-05-20] MEDS: amLODIPine BESYLATE 10 MG TABLET (FP) PO SCH (09:51)
[2017-05-20] MEDS: PANTOPRAZOLE 40 MG TABLET (FP) PO SCH (09:51)
[2017-05-20] MEDS: NYSTATIN POWDER 100,000 UNITS/GM - 15 GM TOPICAL POWDER TP SCH (10:00)
[2017-05-20 10:03] LABS: MYELOCYTE 1 % (0-2); TOTAL CELLS COUNTED 100
--- NOTE | 2017-05-20 14:57 | PN ---
Progress Note, Physician History of Present Illness: no new issues awake and alert - Current Medication List Current Medications: Active Medications Amlodipine Besylate (Norvasc -) 10 mg PO DAILY [facility] Last Admin: 05/20/17 09:51 Dose: 10 mg Docusate Sodium (Colace -) 100 mg PO Q8H PRN PRN Reason: CONSTIPATION Nystatin (Nystop Powder -) 1 applic TP DAILY [facility] Last Admin: 05/19/17 10:18 Dose: 1 applic Pantoprazole Sodium (Protonix -) 40 mg PO DAILY [facility] Last Admin: 05/20/17 09:51 Dose: 40 mg Vancomycin HCl (Vancomycin Oral Solution) 125 mg PO Q6HPO [facility] Last Admin: 05/20/17 12:30 Dose: 125 mg - Objective Vital Signs: Vital Signs Temperature 97.6 F 05/20/17 13:00 Pulse Rate 70 05/20/17 13:00 Respiratory Rate 16 05/20/17 13:00 Blood Pressure 131/65 05/20/17 13:00 O2 Sat by Pulse Oximetry (%) 96 05/20/17 09:00 Constitutional: Yes: No Distress, Calm Cardiovascular: Yes: Regular Rate and Rhythm Respiratory: Yes: Regular, CTA Bilaterally Gastrointestinal: Yes: Normal Bowel Sounds, Soft Musculoskeletal: Yes: WNL Extremities: Yes: WNL Neurological: Yes: Alert, Other Psychiatric: Yes: Alert Labs: CBC, BMP 05/20/17 06:40 05/20/17 06:40 INR, PTT INR 1.03 (0.82-1.09) 05/06/17 05:15 Assessment/Plan Problem List - Problems (1) Bradycardia Code(s): R00.1 - BRADYCARDIA, UNSPECIFIED (2) Hypothermia Code(s): T68.XXXA - HYPOTHERMIA, INITIAL ENCOUNTER (3) Renal failure (ARF), acute on chronic Code(s): N17.9 - ACUTE KIDNEY FAILURE, UNSPECIFIED N18.9 - CHRONIC KIDNEY DISEASE, UNSPECIFIED (4) Hyperkalemia Code(s): E87.5 - HYPERKALEMIA (5) Anemia Code(s): D64.9 - ANEMIA, UNSPECIFIED Qualifiers: 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 Code(s): D50.0 - Iron deficiency anemia secondary to blood loss (chronic) (6) CAD (coronary artery disease) Code(s): I25.10 - ATHSCL HEART DISEASE OF [place] CORONARY ARTERY W/O ANG PCTRS (7) CHF (congestive heart failure) Code(s): I50.9 - HEART FAILURE, UNSPECIFIED Qualifiers: Congestive heart failure type: diastolic Congestive heart failure chronicity: chronic Qualified Code(s): I50.32 - Chronic diastolic ( congestive) heart failure (8) Dementia Code(s): F03.90 - UNSPECIFIED DEMENTIA WITHOUT BEHAVIORAL DISTURBANCE (9) HTN (hypertension) Code(s): I10 - ESSENTIAL (PRIMARY) HYPERTENSION 10 leukocytosis 11 cdiff plan continue on oral vanco nutrition rest as per primary team complete a total of 14 days and stop
--- NOTE | 2017-05-20 16:55 | PN ---
Progress Note (short form) - Note Progress Note: Non verbal No acute overnight. Doppler negative for DVT upper extremities - Current Medication List Current Medications: Active Medications Amlodipine Besylate (Norvasc -) 5 mg PO DAILY [facility] Last Admin: 05/17/17 10:05 Dose: 5 mg Docusate Sodium (Colace -) 100 mg PO Q8H PRN PRN Reason: CONSTIPATION Dextrose/Sodium Chloride (D5-1/3ns -) 500 mls @ 83 mls/hr IV ASDIR [facility] Last Admin: 05/18/17 06:21 Dose: 83 mls/hr Nystatin (Nystop Powder -) 1 applic TP DAILY [facility] Last Admin: 05/17/17 10:05 Dose: 1 applic Pantoprazole Sodium (Protonix -) 40 mg PO DAILY [facility] Last Admin: 05/17/17 10:04 Dose: 40 mg Vancomycin HCl (Vancomycin Oral Solution) 125 mg PO Q6HPO [facility] Last Admin: 05/18/17 06:19 Dose: 125 mg - Objective Vital Signs: Vital Signs Period Temp Pulse Resp BP Sys/Jeronimo Pulse Ox Last 24 Hr 97.6 F-98.7 F 65-70 16-18 131-155/63-75 96-96 Constitutional: Yes: Well Nourished, No Distress, Calm Cardiovascular: Yes: Regular Rate and Rhythm. No: Gallop, Murmur, Rub Respiratory: Yes: Regular, CTA Bilaterally. No: Rales, Rhonchi, Wheezes Gastrointestinal: Yes: Normal Bowel Sounds, Soft. No: Distention, Tenderness Extremities: Yes: Erythema (stable) Edema: No Labs: CBC, BMP 05/20/17 06:40 05/20/17 06:40 Problem List - Problems (1) Bradycardia Code(s): R00.1 - BRADYCARDIA, UNSPECIFIED (2) Hypothermia Code(s): T68.XXXA - HYPOTHERMIA, INITIAL ENCOUNTER (3) Renal failure (ARF), acute on chronic Code(s): N17.9 - ACUTE KIDNEY FAILURE, UNSPECIFIED N18.9 - CHRONIC KIDNEY DISEASE, UNSPECIFIED (4) Hyperkalemia Code(s): E87.5 - HYPERKALEMIA (5) Anemia Code(s): D64.9 - ANEMIA, UNSPECIFIED Qualifiers: 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 Code(s): D50.0 - Iron deficiency anemia secondary to blood loss (chronic); D50.0 - Iron deficiency anemia secondary to blood loss (chronic) (6) CAD (coronary artery disease) Code(s): I25.10 - ATHSCL HEART DISEASE OF [place] CORONARY ARTERY W/O ANG PCTRS (7) CHF (congestive heart failure) Code(s): I50.9 - HEART FAILURE, UNSPECIFIED Qualifiers: Congestive heart failure type: diastolic Congestive heart failure chronicity: chronic Qualified Code(s): I50.32 - Chronic diastolic ( congestive) heart failure; I50.32 - Chronic diastolic (congestive) heart failure ; I50.32 - Chronic diastolic (congestive) heart failure; I50.32 - Chronic diastolic (congestive) heart failure (8) Dementia Code(s): F03.90 - UNSPECIFIED DEMENTIA WITHOUT BEHAVIORAL DISTURBANCE (9) HTN (hypertension) Code(s): I10 - ESSENTIAL (PRIMARY) HYPERTENSION (10) Clostridium difficile colitis Code(s): A04.7 - ENTEROCOLITIS DUE TO CLOSTRIDIUM DIFFICILE * DO NOT USE * Assessment/Plan (1) Bradycardia Assessment/Plan: -resolved, no pacemaker per cardiology Code(s): R00.1 - BRADYCARDIA, UNSPECIFIED (2) Hypothermia Assessment/Plan: -resolved Code(s): T68.XXXA - HYPOTHERMIA, INITIAL ENCOUNTER (3) Renal failure (ARF), acute on chronic Assessment/Plan: - Maintaining renal function off IV fluids. -Monitor off IV fluids another 24 hrs. If renal function stable then can be dc back to [place]. -Renal follow up appreciated. Code(s): N17.9 - ACUTE KIDNEY FAILURE, UNSPECIFIED N18.9 - CHRONIC KIDNEY DISEASE, UNSPECIFIED (4) Hyperkalemia Assessment/Plan: -resolved Code(s): E87.5 - HYPERKALEMIA (5) Anemia Assessment/Plan: -multifactorial -AOCD and GIB with CBLA -continue oral protonix and conservative management Code(s): D64.9 - ANEMIA, UNSPECIFIED Qualifiers: Anemia type: unspecified type Qualified Code(s): D64.9 - Anemia, unspecified (6) CAD (coronary artery disease) Assessment/Plan: -cardiology following Code(s): I25.10 - ATHSCL HEART DISEASE OF [place] CORONARY ARTERY W/O ANG PCTRS (7) CHF (congestive heart failure) Assessment/Plan: -lasix held Code(s): I50.9 - HEART FAILURE, UNSPECIFIED Qualifiers: Congestive heart failure type: unspecified congestive heart failure type Congestive heart failure chronicity: chronic Qualified Code(s): I50.9 - Heart failure, unspecified (8) Dementia Assessment/Plan: -patient is close to baseline -continue current management Code(s): F03.90 - UNSPECIFIED DEMENTIA WITHOUT BEHAVIORAL DISTURBANCE (9) HTN (hypertension) Assessment/Plan: -continue amlodipine Code(s): I10 - ESSENTIAL (PRIMARY) HYPERTENSION (10) Hypernatremia -Resolved. - Monitor off IV fluids (11) C diff colitis -positive -ID following -continue oral vancomycin, total 14 days Disposition: If he maintains his renal function off IV fluids then he can be discharged back to [facility] tomorrow. To finish Oral Vancomycin for a total of 14 days.
[2017-05-21] MEDS: VANCOMYCIN 250 MG/5 ML ORAL SOLUTION PO SCH ×3 (00:04→11:28)
[2017-05-21 06:52] LABS: MCH 29.9 pg (25.7-33.7); MCHC 32.9 g/dl (32.0-35.9); MEAN CELL VOLUME 90.9 fl (80-96); MEAN PLT VOLUME 9.2 fl (7.5-11.1); PLATELET COUNT 279 K/MM3 (134-434); RDW 15.4 % (11.9-15.9); WHITE BLOOD COUNT 8.6 K/mm3 (4.0-10.0)
[2017-05-21 07:38] LABS: ANION GAP 10 (8-16); CALCIUM 8.6 mg/dL (8.5-10.1); CO2 23 mmol/L (21-32); CREATININE 2.5 mg/dL (0.7-1.3); GLUCOSE,RANDOM 94 mg/dL (74-106); MAGNESIUM 2.1 mg/dL (1.8-2.4); PHOSPHOROUS 4.2 mg/dL (2.5-4.9)
[2017-05-21 08:31] LABS: METAMYELOCYTE 1 % (0-2); MYELOCYTE 1 % (0-2); PLATELET ESTIMATE ADEQUATE (NORMAL); TOTAL CELLS COUNTED 100
[2017-05-21] MEDS ORDERED: PT OWN MED DRAWER 7, Y5N ONE (09:39)
[2017-05-21] MEDS: NYSTATIN POWDER 100,000 UNITS/GM - 15 GM TOPICAL POWDER TP SCH (09:57)
[2017-05-21] MEDS: PANTOPRAZOLE 40 MG TABLET (FP) PO SCH (09:57)
[2017-05-21] MEDS: amLODIPine BESYLATE 10 MG TABLET (FP) PO SCH (09:57)
--- NOTE | 2017-05-21 13:58 | DS ---
Physical Exam: SUBJECTIVE: Patient seen and examined at bedside. Nonverbal at baseline. OBJECTIVE: Vital Signs Period Temp Pulse Resp BP Sys/Jeronimo Pulse Ox Last 24 Hr 97.1 F-98.3 F 62-72 16-16 136-163/61-73 95-97 PHYSICAL EXAM GENERAL: The patient is arousable to voice and in no acute distress. HEAD: Normal with no signs of trauma. EYES: PERRL, extraocular movements intact, sclera anicteric, conjunctiva clear. ENT: Ears normal, nares patent, oropharynx clear without exudates, moist mucous membranes. NECK: Trachea midline, full range of motion, supple. LUNGS: Breath sounds equal, clear to auscultation bilaterally, no wheezes, no crackles, no accessory muscle use. HEART: Regular rate and rhythm, S1, S2 without murmur, rub or gallop. ABDOMEN: Soft, nontender, nondistended, normoactive bowel sounds, no guarding, no rebound, no hepatosplenomegaly, no masses. EXTREMITIES: 2+ pulses, warm, well-perfused, no edema. Erythema present to lower extremities. NEUROLOGICAL: Cranial nerves II through XII grossly intact. Gait not observed. SKIN: Warm, dry, normal turgor, no rashes or lesions noted. LABS Laboratory Results - last 24 hr 05/21/17 05/21/17 05:45 05:45 WBC 8.6 RBC 3.25 L Hgb 9.7 L Hct 29.5 L MCV 90.9 MCH 29.9 MCHC 32.9 RDW 15.4 Plt Count 279 MPV 9.2 Total Counted 100 Neutrophils % No Result Required. Neutrophils % (Manual) 81 Lymphocytes % No Result Required. Lymphocytes % (Manual) 8 D Monocytes % (Manual) 8 Myelocytes % (Man) 1 Platelet Estimate Adequate Sodium 143 Potassium 4.3 Chloride 110 H Carbon Dioxide 23 Anion Gap 10 BUN 59 H Creatinine 2.5 H Random Glucose 94 Calcium 8.6 Phosphorus 4.2 Magnesium 2.1 HOSPITAL COURSE: Date of Admission:05/05/17 Date of Discharge: 05/21/17 Minutes to complete discharge: 30 Discharge Summary Reason For Visit: BRADYCARDIA,HEAD INJURY,AMENIA Current Active Problems Anemia (Acute) Blood loss anemia (Acute) Bradycardia (Acute) CAD (coronary artery disease) (Acute) CHF (congestive heart failure) (Acute) Clostridium difficile colitis (Acute) Dementia (Acute) Head injury (Acute) Hydronephrosis (Acute) Hyperkalemia (Acute) Hypothermia (Acute) Renal failure (ARF), acute on chronic (Acute) Schizo-affective schizophrenia, chronic condition (Acute) Hospital Course: 86 y/o man ([facility] Resident), w/ HTN, CHF, CAD, JAQUELINE, schizophrenia, & depression BIBA for eval 2/2 fall out of W/C. A/p EMS the patient fell out of his w/c @ [facility] [place] [facility] in the dining [place]. The fall was unwitnessed. The patient hit his head & presents w/ a minor head lack --> forehead. In ED pt notable for a rectal temp @ 91.5F, and a pulse of 35 w/ SBP in the 90's. NCHCT: Negative. Pt given glucagon (On lopressor) & Started on TCP. Pt admitted now to the ICU for symptomatic Jony m/l 2/2 BB toxicity. Dopamine gtt started. Bradycardia resolved likely from BB toxicity. Started on Norvasc for BP control. Found to be in acute on chronic renal failure. Hypotonic fluids given once HR normalized. A on CRF stable off IVF. Pt found to have c-diff colitis. Started on vancomycin 250mg PO q6h. Will continue at SNF for a total of 14 days (10 more days). Condition: Critical - Instructions Diet, Activity, Other Instructions: Resume all medications except Lexapro and Metoprolol. Stop metoprolol. Continue Norvasc 5mg daily. Take Vancomycin 250mg orally every 6 hours for the next 10 days. Return to ED for any concerns. Disposition: [facility] - Home Medications Comprehensive Discharge Medication List: Ambulatory Orders Acetaminophen [Tylenol] 650 mg PO DAILY 04/05/17 Amlodipine Besylate 10 mg PO DAILY 04/05/17 Ascorbate Calcium [Vitamin C] 500 mg PO BID 04/05/17 Cilostazol 100 mg PO BID 04/05/17 Docusate Sodium [Colace -] 100 mg PO HS 04/05/17 Ferrous Sulfate 325 mg PO BID 04/05/17 Krill Oil/[place]-3/Dha/Epa [[place]-3 Krill Oil Softgel] 1 each PO DAILY 04/05/17 Multivitamin [One Daily] 1 each PO DAILY 04/05/17 Olanzapine 7.5 mg PO DAILY 04/05/17 Perphenazine [Trilafon -] 0.5 mg PO DAILY 04/05/17 Petrolatum,White/Lanolin [Vitamin A & D Ointment] 454 gm TP BID 04/05/17 Ranitidine [Zantac -] 150 mg PO BID 04/05/17 Tamsulosin HCl [Flomax] 0.4 mg PO DAILY 04/05/17 Furosemide [Lasix -] 40 mg PO BID@0600,1400 tablet 04/25/17 Vancomycin Oral Solution 125 mg PO Q6HPO ml 06/01/17 - Discharge Referral Referred to [facility] No
--- NOTE | 2017-05-21 14:04 | PN ---
Progress Note (short form) - Note Progress Note: Renal follow up for SUZI Pt seen and examined at the bedside lethargic no overnight events of IVF nurse reports sparse oral intake Vital Signs Temperature 98.3 F 05/21/17 10:00 Pulse Rate 69 05/21/17 10:00 Respiratory Rate 16 05/21/17 10:00 Blood Pressure 148/73 05/21/17 10:00 O2 Sat by Pulse Oximetry (%) 97 05/21/17 10:00 Intake & Output 05/18/17 05/19/17 05/20/17 05/21/17 23:59 23:59 23:59 23:59 Intake Total 1296 840 655 550 Balance 1296 840 655 550 Weight 166 lb Gen: NAD, lethargic, Dry MM CVS: RRR, No M/R Lungs: Dec BS at lung bases, no rales Abd: soft NT/ND Ext: no edema CBC, BMP 05/21/17 05:45 05/21/17 05:45 Laboratory Tests 05/21/17 05:45 Calcium 8.6 Phosphorus 4.2 Magnesium 2.1 Current Medications Amlodipine Besylate (Norvasc -) 10 mg PO DAILY [facility] Last Admin: 05/21/17 09:57 Dose: 10 mg Docusate Sodium (Colace -) 100 mg PO Q8H PRN PRN Reason: CONSTIPATION Nystatin (Nystop Powder -) 1 applic TP DAILY [facility] Last Admin: 05/21/17 09:57 Dose: 1 applic Pantoprazole Sodium (Protonix -) 40 mg PO DAILY [facility] Last Admin: 05/21/17 09:57 Dose: 40 mg Vancomycin HCl (Vancomycin Oral Solution) 125 mg PO Q6HPO [facility] Last Admin: 05/21/17 11:28 Dose: 125 mg A/P 86 year old gentleman with PMhx of CKD stage 4 (baseline Cr 2.1-2.6), CHF, Anemia, GI bleed, Hyperlipidiemia, Recent admission for hematuria who presented s/p fall with bradycardia, fluid overload and SUZI on CKD. #Acute on Chronic Renal insufficiency Renal function stable off IVF oral intake as tolerated no IVF needed at this time once diarrhea resolves pt may develop signs of volume expansion and may warrant diuretics at that time #Hypernatremia free water as tolerated trend Na levels #Hypertension Amlodpine increased to 10mg Daily goal BP < 150/90 #bilateral arm edema likely 3rd spacing from low albumin and IVF doppler of arms negative for DVT Thank you Teja Mercedes DO
[2017-05-21 15:10] VITALS: BP 133/63; PULSE 65; TEMP 97.3
--- NOTE | 2017-05-21 19:11 | PN ---
Progress Note, Physician History of Present Illness: no new issues awake and alert - Objective Vital Signs: Vital Signs Temperature 97.3 F L 05/21/17 15:09 Pulse Rate 65 05/21/17 15:09 Respiratory Rate 16 05/21/17 15:09 Blood Pressure 133/63 05/21/17 15:09 O2 Sat by Pulse Oximetry (%) 97 05/21/17 10:00 Constitutional: Yes: No Distress, Calm Cardiovascular: Yes: Regular Rate and Rhythm Respiratory: Yes: Regular, CTA Bilaterally Gastrointestinal: Yes: Normal Bowel Sounds, Soft Musculoskeletal: Yes: WNL Extremities: Yes: WNL Labs: CBC, BMP 05/21/17 05:45 05/21/17 05:45 INR, PTT INR 1.03 (0.82-1.09) 05/06/17 05:15 Assessment/Plan Problem List - Problems (1) Bradycardia Code(s): R00.1 - BRADYCARDIA, UNSPECIFIED (2) Hypothermia Code(s): T68.XXXA - HYPOTHERMIA, INITIAL ENCOUNTER (3) Renal failure (ARF), acute on chronic Code(s): N17.9 - ACUTE KIDNEY FAILURE, UNSPECIFIED N18.9 - CHRONIC KIDNEY DISEASE, UNSPECIFIED (4) Hyperkalemia Code(s): E87.5 - HYPERKALEMIA (5) Anemia Code(s): D64.9 - ANEMIA, UNSPECIFIED Qualifiers: 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 Code(s): D50.0 - Iron deficiency anemia secondary to blood loss (chronic) (6) CAD (coronary artery disease) Code(s): I25.10 - ATHSCL HEART DISEASE OF [place] CORONARY ARTERY W/O ANG PCTRS (7) CHF (congestive heart failure) Code(s): I50.9 - HEART FAILURE, UNSPECIFIED Qualifiers: Congestive heart failure type: diastolic Congestive heart failure chronicity: chronic Qualified Code(s): I50.32 - Chronic diastolic ( congestive) heart failure (8) Dementia Code(s): F03.90 - UNSPECIFIED DEMENTIA WITHOUT BEHAVIORAL DISTURBANCE (9) HTN (hypertension) Code(s): I10 - ESSENTIAL (PRIMARY) HYPERTENSION 10 leukocytosis 11 cdiff plan continue on oral vanco nutrition rest as per primary team complete a total of 14 days and stop
== END 2017-05-21 16:55 | DRG 918 ==
LOC: JER 16:38 → JERBED 20:48 → UNDOADMIN 20:52 → JERBED 20:52 → JICU 22:22 → J4S 05-09 17:28
PROVIDERS: ADMIT Internal Medicine; ATTEND Nurse Practitioner Family
PROC: 30233H1 Transfusion of Nonautologous Whole Blood into Peripheral Vein, Percutaneous Approach (ICD-10-PCS; principal; 2017-05-06)
DX: T44.7X1A Poisoning by beta-adrenoreceptor antagonists, accidental (unintentional), initial encounter (principal); N17.9 Acute kidney failure, unspecified; I13.0 Hypertensive heart and chronic kidney disease with heart failure and stage 1 through stage 4 chronic kidney disease, or unspecified chronic kidney disease; I50.22 Chronic systolic (congestive) heart failure; N18.4 Chronic kidney disease, stage 4 (severe); E87.0 Hyperosmolality and hypernatremia; L03.115 Cellulitis of right lower limb; N13.30 Unspecified hydronephrosis; A04.72 Enterocolitis due to Clostridium difficile, not specified as recurrent; D62 Acute posthemorrhagic anemia; I49.5 Sick sinus syndrome; I25.10 Atherosclerotic heart disease of native coronary artery without angina pectoris; F20.9 Schizophrenia, unspecified; F32.9 Major depressive disorder, single episode, unspecified; E78.5 Hyperlipidemia, unspecified; N40.0 Benign prostatic hyperplasia without lower urinary tract symptoms; Z87.891 Personal history of nicotine dependence; S01.81XA Laceration without foreign body of other part of head, initial encounter; W05.0XXA Fall from non-moving wheelchair, initial encounter; Y92.122 Bedroom in nursing home as the place of occurrence of the external cause; Y99.8 Other external cause status; Z66 Do not resuscitate; I27.20 Pulmonary hypertension, unspecified; I35.0 Nonrheumatic aortic (valve) stenosis; R68.0 Hypothermia, not associated with low environmental temperature; I44.1 Atrioventricular block, second degree; E87.5 Hyperkalemia; Z78.1 Physical restraint status
CPT/HCPCS: 36415; 36430; 70450-TC; 71010-TC; 76775-TC; 76856-TC; 80048; 80053; 81003; 81015; 82272; 82533; 82553; 82607; 82728; 82803; 83540; 83550; 83605; 83735; 83880; 84100; 84439; 84443; 84481; 84484; 85025; 85027; 85610; 85730; 86850; 86900; 86901; 86922; 87040; 87086; 87324; 87449; 90670; 90688; 93005; 93010; 93306-TC; 93970-TC; 94640; 97161-GP; 99281-25; G0008; G0009; J1644; P9038; P9058

== ENCOUNTER 2017-05-31 15:52 | Inpatient (IN) | payer OTHER ==
--- NOTE | 2017-05-31 16:35 | PDOC ---
History of Present Illness - General History Source: Patient, EMS, Penitentiary Records, Old Records Exam Limitations: No Limitations - History of Present Illness Initial Comments: 05/31/17 16:50 The patient is a 86 year old male brought via EMS, with a significant past medical history of dementia, CHF, anemia, BPH, HTN, HLD, who presents to the emergency department with chest pain, abdominal pain and low back pain. He describes his abdominal pain as ranging from mild to moderate, localized in the suprapubic region, without radiation or modifying factors. The patient has a harris catheter in place upon presentation. Currently the patient is taking Cipro for a UTI as well as Vancomycin for C-Diff. A rectal temp. was collected revealing a temperature of 95.9 Rectally. Allergies: None Past surgical history: Cholecystectomy Social history: No alcohol, tobacco or drug use reported PMD - <Luciano Le - Last Filed: 05/31/17 16:47> <Juan Manuel Knapp - Last Filed: 05/31/17 22:06> - General Stated Complaint: Chest Pain Time Seen by Provider: 05/31/17 16:23 Past History <Luciano Le - Last Filed: 05/31/17 16:47> - Past Medical History Anemia: Yes Asthma: No Cancer: No Cardiac Disorders: Yes (CHF) CVA: No COPD: No CHF: No Dementia: No Diabetes: No GI Disorders: Yes (GI BLD-TRANSFUSED) Disorders: Yes (BPH) HTN: Yes Hypercholesterolemia: Yes Liver Disease: No Seizures: No Thyroid Disease: No - Surgical History Abdominal Surgery: No Appendectomy: No Cardiac Surgery: No Cholecystectomy: Yes Lung Surgery: No Neurologic Surgery: No Orthopedic Surgery: No - Suicide/Smoking/Psychosocial Hx Smoking History: Unknown if ever smoked Have you smoked in the past 12 months: No Number of Cigarettes Smoked Daily: 15 If you are a former smoker, when did you quit?: does not remember 'Breaking Loose' booklet given: 01/26/17 Hx Alcohol Use: No Drug/Substance Use Hx: No Substance Use Type: None Hx Substance Use Treatment: No <Juan Manuel Knapp - Last Filed: 05/31/17 22:06> - Past Medical History Allergies/Adverse Reactions: Allergies Allergy/AdvReac Type Severity Reaction Status Date / Time No Known Drug Allergies Allergy Verified 05/31/17 16:26 Home Medications: Ambulatory Orders Acetaminophen 650 mg PO DAILY 05/31/17 Amlodipine Besylate [Norvasc -] 10 mg PO DAILY 05/31/17 Ascorbic Acid [Vitamin C] 500 mg PO BID 05/31/17 Cilostazol [Pletal -] 100 mg PO BID 05/31/17 Ciprofloxacin HCl [Cipro] 500 mg PO BID 05/31/17 Docusate Sodium [Colace -] 100 mg PO DAILY 05/31/17 Escitalopram Oxalate [Lexapro -] 20 mg PO DAILY 05/31/17 Ferrous Sulfate [Feosol] 325 mg PO BID 05/31/17 Krill Oil/[place]-3/Dha/Epa [[place]-3 Krill Oil Softgel] 1 each PO DAILY 05/31/17 Metoprolol Succinate [Toprol Xl -] 25 mg PO DAILY 05/31/17 Multivitamin [One Daily] 1 each PO DAILY 05/31/17 Nystatin Powder [Nystop Topical Powder -] 15 gm TP BID 05/31/17 Olanzapine [Zyprexa -] 7.5 mg PO DAILY 05/31/17 Perphenazine [Trilafon] 0.5 mg PO DAILY 05/31/17 Ranitidine [Zantac -] 150 mg PO BID 05/31/17 Tamsulosin HCl [Flomax] 0.4 mg PO DAILY 05/31/17 Triamcinolone 0.1% Lotion [Aristocort] 1 applic TP BID 05/31/17 Vancomycin HCl 125 mg PO QID 05/31/17 Vits A and D/White Pet/Lanolin [Vitamin A & D Grx Ointment] 60 gm TP BID Review of Systems - Review of Systems Able to Perform ROS?: Yes Comments:: 05/31/17 16:49 GENERAL/CONSTITUTIONAL: No fever or chills. No weakness. HEAD, EYES, EARS, NOSE AND THROAT: No change in vision. No ear pain or discharge. No sore throat.- CARDIOVASCULAR: (+) Chest pain. No shortness of breath RESPIRATORY: No cough, wheezing, or hemoptysis. GASTROINTESTINAL: (+) Abdominal pain. No nausea, vomiting, diarrhea or constipation. GENITOURINARY: No dysuria, frequency, or change in urination. MUSCULOSKELETAL: (+) Low back pain. No joint or muscle swelling or pain. No neck pain. SKIN: No rash NEUROLOGIC: No headache, vertigo, loss of consciousness, or change in strength/ sensation. ENDOCRINE: No increased thirst. No abnormal weight change HEMATOLOGIC/LYMPHATIC: No anemia, easy bleeding, or history of blood clots. ALLERGIC/IMMUNOLOGIC: No hives or skin allergy. <Luciano Le - Last Filed: 05/31/17 16:47> *Physical Exam - Vital Signs Last Vital Signs Temp Pulse Resp BP Pulse Ox 95.9 F L 60 16 104/49 96 05/31/17 16:00 05/31/17 16:00 05/31/17 16:00 05/31/17 16:00 05/31/17 16:00 - Physical Exam Comments: 05/31/17 16:50 GENERAL: Awake, alert and oritented to self, in no acute distress HEAD: No signs of trauma, normocephalic, atraumatic EYES: PERRLA, EOMI, sclera anicteric, conjunctiva clear ENT: Auricles normal inspection, hearing grossly normal, nares patent, oropharynx clear without exudates. Moist mucosa NECK: Normal ROM, supple, no lymphadenopathy, JVD, or masses LUNGS: No distress, speaks full sentences, clear to auscultation bilaterally HEART: Regular rate and rhythm, normal S1 and S2, no murmurs, rubs or gallops, peripheral pulses normal and equal bilaterally. ABDOMEN: (+) Tenderness in the suprapupic region. Soft, normoactive bowel sounds. No guarding, no rebound. No masses EXTREMITIES : Normal inspection, Normal range of motion, no edema. No clubbing or cyanosis. NEUROLOGICAL: Alert and Oriented only to self. Cranial nerves II through XII grossly intact. Normal speech, no focal sensorimotor deficits SKIN: Warm, Dry, no rashes or lesions noted. <Luciano Le - Last Filed: 05/31/17 16:47> ED Treatment Course - LABORATORY CBC & Chemistry Diagram: 05/31/17 18:00 05/31/17 18:00 <Juan Manuel Knapp - Last Filed: 05/31/17 22:06> *DC/Admit/Observation/Transfer - Attestations Scribe Attestion: 05/31/17 16:50 Documentation prepared by Luciano Le, acting as medical technicians for Juan Manuel Knapp MD <Luciano Le - Last Filed: 05/31/17 16:47> - Discharge Dispostion Admit: Yes - Attestations Physician Attestion: 05/31/17 16:23 I, Dr. Juan Manuel Knapp, attest that this document has been prepared under my direction and personally reviewed by me in its entirety. I further attest, that it accurately reflects all work, treatment, procedures and medical decision -making performed by me. <Juan Manuel Knapp - Last Filed: 05/31/17 22:06> Diagnosis at time of Disposition: Acute kidney injury Sepsis Qualifiers: Sepsis type: sepsis due to unspecified organism Qualified Code(s): A41.9 - Sepsis, unspecified organism; A41.9 - Sepsis, unspecified organism; A41.9 - Sepsis, unspecified organism Urinary tract infection Qualifiers: Urinary tract infection type: site unspecified Hematuria presence: without hematuria Qualified Code(s): N39.0 - Urinary tract infection, site not specified ; N39.0 - Urinary tract infection, site not specified - Discharge Dispostion Condition at time of disposition: Improved - Referrals Referrals: Cesario Montiel MD [Primary Care Provider] -
[2017-05-31 18:28] LABS: BASOPHIL 0.3 % (0-2.0); EOSINOPHIL 0.1 % (0-4.5); MCH 29.4 pg (25.7-33.7); MCHC 33.1 g/dl (32.0-35.9); MEAN PLT VOLUME 8.1 fl (7.5-11.1); NEUTROPHILS 89.5 % (42.8-82.8); PLATELET COUNT 384 K/MM3 (134-434); RDW 14.9 % (11.9-15.9); WHITE BLOOD COUNT 11.7 K/mm3 (4.0-10.0)
[2017-05-31 18:29] LABS: VENOUS BLOOD GAS HCO3 22.9 meq/L (19-25); VENOUS PH 7.37 (7.32-7.42)
[2017-05-31 18:41] LABS: INR 1.07 (0.82-1.09); PROTHROMBIN TIME (PATIENT) 12.1 SEC (9.98-11.88)
[2017-05-31 18:43] LABS: ACTIVATED PTT 30.7 SECONDS (26.9-34.4)
[2017-05-31 18:54] LABS: ALBUMIN 2.2 g/dl (3.4-5.0); ANION GAP 12 (8-16); CALCIUM 8.2 mg/dL (8.5-10.1); CO2 22 mmol/L (21-32); GLUCOSE,RANDOM 134 mg/dL (74-106); SGPT/ALT 19 U/L (12-78)
[2017-05-31 18:59] LABS: ALK PHOS 123 U/L (45-117); BILIRUBIN,TOTAL 0.2 mg/dL (0.2-1.0); CPK 132 IU/L (39-308); CREATININE 4.6 mg/dL (0.7-1.3); SGOT/AST 14 U/L (15-37); TOT PROT 5.2 g/dl (6.4-8.2); TROPONIN I < 0.02 ng/ml (0.00-0.05)
[2017-05-31] MEDS ORDERED: SODIUM CHLORIDE 1,000 ML IV STA (20:12)
[2017-05-31] MEDS ORDERED: LEVOFLOXACIN 750 MG IVPB 150 ML IVPB ONE ×2 (21:48→22:07)
[2017-05-31 21:51] LABS: URINE APPEARANCE TURBID; URINE BILIRUBIN NEGATIVE (NEGATIVE); URINE BLOOD 3+ (NEGATIVE); URINE COLOR AMBER; URINE GLUCOSE (UA) NEGATIVE (NEGATIVE); URINE KETONE NEGATIVE (NEGATIVE); URINE NITRITE POSITIVE (NEGATIVE); URINE UROBILINOGEN NEGATIVE mg/dL (0.2-1.0)
[2017-05-31 21:56] LABS: URINE PROTEIN 2+ (NEGATIVE)
[2017-05-31 21:58] LABS: URINE BACTERIA MANY /hpf (NONE SEEN); URINE RBC 85 /hpf (0-3); URINE WBC 2585 /hpf (3-5)
[2017-05-31 23:02] LABS: URINE LEUK ESTERASE 3+ (NEGATIVE)
--- NOTE | 2017-05-31 23:30 | HP ---
CHIEF COMPLAINT: abd pain PCP: Dinesh HISTORY OF PRESENT ILLNESS: This is a 86 year old male brought via EMS, with a significant past medical history of dementia, CHF, anemia, BPH, HTN, HLD, who presents to the emergency department with abdominal pain and low back pain. He describes his abdominal pain as ranging from mild to moderate, localized in the suprapubic region, without radiation or modifying factors. The patient had a harris catheter in place upon presentation. Currently the patient is taking Cipro for a UTI as well as Vancomycin for C-Diff. He arrived with a rectal temp of 95.9. ER course was notable for: (1) SIRS (+) with leukocytosis, hypothermia (2) Hypotension resolved with IVF (3) UTI (4) Acute on chronic renal insufficiency Recent Travel: none PAST MEDICAL HISTORY: see HPI PAST SURGICAL HISTORY: see HPI Social History: Smoking: former ~15 cigarettes daily Alcohol: denies Drugs: denies Family History: Allergies No Known Drug Allergies Allergy (Verified 05/31/17 16:26) HOME MEDICATIONS: Home Medications Medication Instructions Recorded Acetaminophen 650 mg PO DAILY 05/31/17 Amlodipine Besylate [Norvasc -] 10 mg PO DAILY 05/31/17 Ascorbic Acid [Vitamin C] 500 mg PO BID 05/31/17 Cilostazol [Pletal -] 100 mg PO BID 05/31/17 Ciprofloxacin HCl [Cipro] 500 mg PO BID 05/31/17 Docusate Sodium [Colace -] 100 mg PO DAILY 05/31/17 Escitalopram Oxalate [Lexapro -] 20 mg PO DAILY 05/31/17 Ferrous Sulfate [Feosol] 325 mg PO BID 05/31/17 Krill Oil/[place]-3/Dha/Epa [[place]-3 1 each PO DAILY 05/31/17 Krill Oil Softgel] Metoprolol Succinate [Toprol Xl -] 25 mg PO DAILY 05/31/17 Multivitamin [One Daily] 1 each PO DAILY 05/31/17 Nystatin Powder [Nystop Topical 15 gm TP BID 05/31/17 Powder -] Olanzapine [Zyprexa -] 7.5 mg PO DAILY 05/31/17 Perphenazine [Trilafon] 0.5 mg PO DAILY 05/31/17 Ranitidine [Zantac -] 150 mg PO BID 05/31/17 Tamsulosin HCl [Flomax] 0.4 mg PO DAILY 05/31/17 Triamcinolone 0.1% Lotion 1 applic TP BID 05/31/17 [Aristocort] Vancomycin HCl 125 mg PO QID 05/31/17 Vits A and D/White Pet/Lanolin 60 gm TP BID 05/31/17 [Vitamin A & D Grx Ointment] REVIEW OF SYSTEMS CONSTITUTIONAL: Unreliable due to decreased MS at baseline. Absent: fever, chills, diaphoresis, generalized weakness, malaise, loss of appetite, weight change HEENT: Absent: rhinorrhea, nasal congestion, throat pain, throat swelling, difficulty swallowing, mouth swelling, ear pain, eye pain, visual changes CARDIOVASCULAR: Absent: chest pain, syncope, palpitations, irregular heart rate, lightheadedness , peripheral edema RESPIRATORY: Absent: cough, shortness of breath, dyspnea with exertion, orthopnea, wheezing, stridor, hemoptysis GASTROINTESTINAL: Absent: abdominal pain, abdominal distension, nausea, vomiting, diarrhea, constipation, melena, hematochezia GENITOURINARY: Absent: dysuria, frequency, urgency, hesitancy, hematuria, flank pain, genital pain MUSCULOSKELETAL: Absent: myalgia, arthralgia, joint swelling, back pain, neck pain SKIN: Absent: rash, itching, pallor HEMATOLOGIC/IMMUNOLOGIC: Absent: easy bleeding, easy bruising, lymphadenopathy, frequent infections ENDOCRINE: Absent: unexplained weight gain, unexplained weight loss, heat intolerance, cold intolerance NEUROLOGIC: Absent: headache, focal weakness or paresthesias, dizziness, unsteady gait, seizure, mental status changes, bladder or bowel incontinence PSYCHIATRIC: Absent: anxiety, depression, suicidal or homicidal ideation, hallucinations. PHYSICAL EXAMINATION Vital Signs - 24 hr 05/31/17 05/31/17 05/31/17 16:00 18:26 22:05 Temperature 95.9 F L 99.5 F Pulse Rate 60 Pulse Rate [ 66 89 Apical] Respiratory 16 16 18 Rate Blood Pressure 104/49 Blood Pressure 95/45 137/89 [Right Arm] O2 Sat by Pulse 96 98 94 L Oximetry (%) GENERAL: The patient is arousable to voice and in no acute distress. HEAD: Normal with no signs of trauma. EYES: PERRL, extraocular movements intact, sclera anicteric, conjunctiva clear. ENT: Ears normal, nares patent, oropharynx clear without exudates, moist mucous membranes. NECK: Trachea midline, full range of motion, supple. LUNGS: Breath sounds equal, clear to auscultation bilaterally, no wheezes, no crackles, no accessory muscle use. HEART: Regular rate and rhythm, S1, S2 without murmur, rub or gallop. ABDOMEN: Soft, nontender, nondistended, normoactive bowel sounds, no guarding, no rebound, no hepatosplenomegaly, no masses. EXTREMITIES: 2+ pulses, warm, well-perfused, no edema. Erythema present to right lower extremity. NEUROLOGICAL: Cranial nerves II through XII grossly intact. Gait not observed. SKIN: Warm, dry, normal turgor, no rashes or lesions noted. Laboratory Results - last 24 hr 05/31/17 05/31/17 05/31/17 18:00 18:00 18:00 WBC 11.7 H D RBC 2.84 L Hgb 8.4 L D Hct 25.3 L MCV 89.0 MCH 29.4 MCHC 33.1 RDW 14.9 Plt Count 384 D MPV 8.1 D Neutrophils % 89.5 H Lymphocytes % 1.8 L D Monocytes % 8.3 Eosinophils % 0.1 D Basophils % 0.3 PT with INR 12.10 H INR 1.07 PTT (Actin FS) 30.7 VBG pH POC VBG pCO2 POC VBG pO2 Mixed VBG HCO3 Sodium 140 Potassium 5.1 Chloride 106 Carbon Dioxide 22 Anion Gap 12 BUN 79 H D Creatinine 4.6 H D Creat Clearance w eGFR 12.15 Random Glucose 134 H D Lactic Acid Calcium 8.2 L Total Bilirubin 0.2 D AST 14 L D ALT 19 D Alkaline Phosphatase 123 H Creatine Kinase 132 Troponin I < 0.02 Total Protein 5.2 L Albumin 2.2 L Urine Color Urine Appearance Urine pH Ur Specific [place] Urine Protein Urine Glucose (UA) Urine Ketones Urine Blood Urine Nitrite Urine Bilirubin Urine Urobilinogen Ur Leukocyte Esterase Urine RBC Urine WBC Ur Epithelial Cells Urine Bacteria Blood Type Antibody Screen 05/31/17 05/31/17 05/31/17 18:00 18:00 18:10 WBC RBC Hgb Hct MCV MCH MCHC RDW Plt Count MPV Neutrophils % Lymphocytes % Monocytes % Eosinophils % Basophils % PT with INR INR PTT (Actin FS) VBG pH 7.37 POC VBG pCO2 40.9 POC VBG pO2 27.5 L D Mixed VBG HCO3 22.9 Sodium Potassium Chloride Carbon Dioxide Anion Gap BUN Creatinine Creat Clearance w eGFR Random Glucose Lactic Acid 0.9 Calcium Total Bilirubin AST ALT Alkaline Phosphatase Creatine Kinase Troponin I Total Protein Albumin Urine Color Urine Appearance Urine pH Ur Specific [place] Urine Protein Urine Glucose (UA) Urine Ketones Urine Blood Urine Nitrite Urine Bilirubin Urine Urobilinogen Ur Leukocyte Esterase Urine RBC Urine WBC Ur Epithelial Cells Urine Bacteria Blood Type B NEGATIVE Antibody Screen Negative 05/31/17 21:34 WBC RBC Hgb Hct MCV MCH MCHC RDW Plt Count MPV Neutrophils % Lymphocytes % Monocytes % Eosinophils % Basophils % PT with INR INR PTT (Actin FS) VBG pH POC VBG pCO2 POC VBG pO2 Mixed VBG HCO3 Sodium Potassium Chloride Carbon Dioxide Anion Gap BUN Creatinine Creat Clearance w eGFR Random Glucose Lactic Acid Calcium Total Bilirubin AST ALT Alkaline Phosphatase Creatine Kinase Troponin I Total Protein Albumin Urine Color Antonella Urine Appearance Turbid Urine pH 6.0 Ur Specific [place] 1.010 Urine Protein 2+ H Urine Glucose (UA) Negative Urine Ketones Negative Urine Blood 3+ H Urine Nitrite Positive Urine Bilirubin Negative Urine Urobilinogen Negative Ur Leukocyte Esterase 3+ H Urine RBC 85 Urine WBC 2585 Ur Epithelial Cells Rare Urine Bacteria Many Blood Type Antibody Screen ASSESSMENT/PLAN: A: P: Sepsis- likely urinary source given UA but may be cellulitis - urine cx with pansensitive Group B strep in past - given Levaquin in ED - will start ceftriaxone - strict I&O's - urine cx pending - daily BMP - Daily CBC SUZI - gentle hydration given CHF - hold nephrotoxic meds - obstructed harris on presentation ?obstruction vs dehydration - daily BMP C-diff - vanco po - stool for cx HTN - norvasc - Toprol XL - monitor closely given sepsis Schizophrenia - Zyprexa - Lexapro CHF - daily weights - strict I&O's BPH - Flomax F/E/N - dysphagia diet - replete prn PPX - sqh - Zantac Dispo- requires inpatient treatment of his acute medical conditions Visit type - Emergency Visit Emergency Visit: Yes Care time: The patient presented to the Emergency Department on the above date and was hospitalized for further evaluation of their emergent condition. - New Patient This patient is new to me today: Yes Date on this admission: 05/31/17 - Critical Care Critical Care patient: No
[2017-05-31] MEDS ORDERED: ACETAMINOPHEN 325 MG TABLET (FP) PO PRN (23:49)
[2017-06-01] MEDS: VANCOMYCIN 250 MG/5 ML ORAL SOLUTION PO SCH ×4 (01:50→19:07)
[2017-06-01] MEDS ORDERED: LORazepam 2 MG/ML SDV VIAL ONE (01:51)
[2017-06-01 06:56] LABS: BASOPHIL 0.4 % (0-2.0); MCH 29.7 pg (25.7-33.7); MCHC 33.9 g/dl (32.0-35.9); MEAN CELL VOLUME 87.7 fl (80-96); MEAN PLT VOLUME 7.6 fl (7.5-11.1); NEUTROPHILS 79.8 % (42.8-82.8); PLATELET COUNT 343 K/MM3 (134-434); RDW 15.3 % (11.9-15.9); WHITE BLOOD COUNT 8.4 K/mm3 (4.0-10.0)
[2017-06-01 07:24] LABS: ANION GAP 12 (8-16); CALCIUM 7.8 mg/dL (8.5-10.1); CO2 22 mmol/L (21-32); CREATININE 4.2 mg/dL (0.7-1.3); GLUCOSE,RANDOM 83 mg/dL (74-106)
[2017-06-01] MEDS: TAMSULOSIN HCL 0.4 MG CAP.ER.24H (FP) PO SCH (09:30)
[2017-06-01] MEDS: TRIAMCINOLONE ACET 0.1% 60 ML LOTION TP SCH ×2 (09:30→21:21)
[2017-06-01] MEDS: FERROUS SO4 325 MG TABLET (FP) PO SCH ×2 (09:31→21:18)
[2017-06-01] MEDS: HEPARIN NA (PORCINE) 5,000 UNITS/ML 1ML VIAL SQ SCH ×2 (09:31→21:18)
[2017-06-01] MEDS: NYSTATIN POWDER 100,000 UNITS/GM - 15 GM TOPICAL POWDER TP SCH ×2 (09:32→21:21)
[2017-06-01] MEDS: LANOLIN (EMOLL) 30 GM TUBE TP SCH ×2 (09:32→21:21)
[2017-06-01] MEDS: amLODIPine BESYLATE 10 MG TABLET (FP) PO SCH ×2 (09:32→10:06)
[2017-06-01] MEDS: ESCITALOPRAM OXALATE 20 MG TABLET (FP) PO SCH (09:32)
[2017-06-01] MEDS: METOPROLOL SUCCINATE 25 MG TAB.SR.24H (FP) PO SCH ×2 (09:33→10:06)
[2017-06-01] MEDS: MULTIVITAMINS (DAILY MVI) TABLET (FP) PO SCH (09:33)
[2017-06-01] MEDS: ASCORBIC ACID 500 MG TABLET (FP) PO SCH ×2 (09:33→21:18)
[2017-06-01] MEDS: RANITIDINE HCL 150 MG TABLET (FP) PO SCH ×2 (09:33→21:18)
[2017-06-01] MEDS ORDERED: OLANZapine 7.5 MG TABLET PO SCH (10:00)
[2017-06-01] MEDS ORDERED: PERPHENAZINE 2 MG TABLET PO SCH (10:00)
[2017-06-01] MEDS ORDERED: CEFTRIAXONE 1 G/50 ML PREMIX 50 ML IVPB SCH (10:00)
--- NOTE | 2017-06-01 11:05 | PN ---
Progress Note, Physician Chief Complaint: Mr Reynoso says he feels lousy but will not tell me why. Does not answer further questions - Current Medication List Current Medications: Active Medications Acetaminophen (Tylenol -) 650 mg PO Q6HPO PRN PRN Reason: FEVER OR PAIN Amlodipine Besylate (Norvasc -) 10 mg PO DAILY [facility] Last Admin: 06/01/17 10:06 Dose: Not Given Ascorbic Acid (Vitamin C -) 500 mg PO BID [facility] Last Admin: 06/01/17 09:33 Dose: 500 mg Emollient Ointment (Lanolin Topical Ointment -) 1 applic TP BID [facility] Last Admin: 06/01/17 09:32 Dose: 1 applic Escitalopram Oxalate (Lexapro -) 20 mg PO DAILY [facility] Last Admin: 06/01/17 09:32 Dose: 20 mg Ferrous Sulfate (Feosol -) 325 mg PO BID [facility] Last Admin: 06/01/17 09:31 Dose: 325 mg Heparin Sodium (Porcine) (Heparin -) 5,000 unit SQ BID [facility] Last Admin: 06/01/17 09:31 Dose: 5,000 unit CEFTRIAXONE 1 G/50 ML PREMIX (Ceftriaxone 1 Gm-D5w Bag) 50 mls @ 100 mls/hr IVPB DAILY [facility] Last Admin: 06/01/17 09:31 Dose: 100 mls/hr Metoprolol Succinate (Toprol Xl -) 25 mg PO DAILY [facility] Last Admin: 06/01/17 10:06 Dose: Not Given Multivitamins/Minerals/Vitamin C (Tab-A-Vit -) 1 tab PO DAILY [facility] Last Admin: 06/01/17 09:33 Dose: 1 tab Nystatin (Nystop Powder -) 1 applic TP BID [facility] Last Admin: 06/01/17 09:32 Dose: 1 applic Olanzapine (Zyprexa -) 7.5 mg PO DAILY [facility] Last Admin: 06/01/17 09:33 Dose: 7.5 mg Ranitidine HCl (Zantac -) 150 mg PO BID [facility] Last Admin: 06/01/17 09:33 Dose: 150 mg Tamsulosin HCl (Flomax -) 0.4 mg PO DAILY@0830 [facility] Last Admin: 06/01/17 09:30 Dose: 0.4 mg Triamcinolone Acetonide (Aristocort 0.1% Lotion -) 1 applic TP BID [facility] Last Admin: 06/01/17 09:30 Dose: 1 applic Vancomycin HCl (Vancomycin Oral Solution) 125 mg PO Q6HPO [facility] Last Admin: 06/01/17 06:54 Dose: 125 mg - Objective Vital Signs: Vital Signs Temperature 37.1 C 06/01/17 08:57 Pulse Rate 66 06/01/17 10:29 Respiratory Rate 16 06/01/17 10:29 Blood Pressure 98/64 06/01/17 10:29 O2 Sat by Pulse Oximetry (%) 98 06/01/17 10:29 Constitutional: Yes: No Distress, Calm Cardiovascular: Yes: Regular Rate and Rhythm. No: Gallop, Murmur Respiratory: Yes: Regular, CTA Bilaterally. No: Rales, Rhonchi, Wheezes Gastrointestinal: Yes: Normal Bowel Sounds, Soft. No: Distention, Tenderness Genitourinary: Yes: Harris Present (purulent urine) Extremities: Yes: Erythema Edema: No Labs: CBC, BMP 06/01/17 06:30 06/01/17 06:30 INR, PTT INR 1.07 (0.82-1.09) 05/31/17 18:00 Problem List - Problems (1) Sepsis Assessment/Plan: -secondary to UTI -ID consulted -antibiotics and IVF Code(s): A41.9 - SEPSIS, UNSPECIFIED ORGANISM Qualifiers: Sepsis type: sepsis due to unspecified organism Qualified Code(s): A41.9 - Sepsis, unspecified organism; A41.9 - Sepsis, unspecified organism; A41.9 - Sepsis, unspecified organism (2) UTI (urinary tract infection) Assessment/Plan: -purulent urine in harris -ID consulted and seeing -on vancomycin and zosyn Code(s): N39.0 - URINARY TRACT INFECTION, SITE NOT SPECIFIED Qualifiers: Urinary tract infection type: site unspecified Hematuria presence: without hematuria Qualified Code(s): N39.0 - Urinary tract infection, site not specified; N39.0 - Urinary tract infection, site not specified; R31.9 - Hematuria, unspecified; R31.9 - Hematuria, unspecified (3) Acute on chronic renal failure Assessment/Plan: -secondary to sepsis and dehydration -continue IVF -nephrology consult Code(s): N17.9 - ACUTE KIDNEY FAILURE, UNSPECIFIED N18.9 - CHRONIC KIDNEY DISEASE, UNSPECIFIED (4) CAD (coronary artery disease) Assessment/Plan: -stable -continue current regimen Code(s): I25.10 - ATHSCL HEART DISEASE OF [place] CORONARY ARTERY W/O ANG PCTRS (5) CHF (congestive heart failure) Assessment/Plan: -not in exacerbation -holding diuretics at this time Code(s): I50.9 - HEART FAILURE, UNSPECIFIED Qualifiers: Congestive heart failure type: diastolic Congestive heart failure chronicity: chronic Qualified Code(s): I50.32 - Chronic diastolic ( congestive) heart failure; I50.32 - Chronic diastolic (congestive) heart failure ; I50.32 - Chronic diastolic (congestive) heart failure; I50.32 - Chronic diastolic (congestive) heart failure (6) Dementia Assessment/Plan: -at baseline -continue current regimen Code(s): F03.90 - UNSPECIFIED DEMENTIA WITHOUT BEHAVIORAL DISTURBANCE (7) HTN (hypertension) Assessment/Plan: -well controlled Code(s): I10 - ESSENTIAL (PRIMARY) HYPERTENSION
[2017-06-01] MEDS ORDERED: PT OWN MED DRAWER 7, Y5N ONE ×5 (15:20→18:43)
--- NOTE | 2017-06-01 15:21 | CONSULT ---
Consultation: REQUESTING PROVIDER: CONSULT REQUEST: RENAL CONSULT HISTORY OF PRESENT ILLNESS: Poor historian. History obtained from EMR. Patient is a 86 year old male from [place] brought via EMS with abdominal pain and low back pain. As per the patient, he doesn't know the reason of hospitalization. Complaints of nausea. Denies chest pain, sob, cough, palpitation, abdominal pain, vomiting, no urinary symptoms. As per the chart, he came in with abdominal pain and low back pain. Located in the suprapubic region. Came to the ED with harris catheter. He was hospitalized on 05/06/17 for unwitnessed fall. During hospitalization it was complicated by symptomatic bradycardia which resolved after treatment. He also had c-diff colitis for which he is taking Vancomycin 250mg PO Q6H x 14 days , acute on chronic renal failure. and discharged on 05/21/17 Currently the patient is taking Cipro for a UTI as well as Vancomycin for C- Diff. On arrival, he was found to have temp of 95.9F, hypotensive 95/45 mmHg. Labs were significant for leukocytosis of 11.7, normocytic anemia H/H 8.4/25.3 ; BUN 79 and Creatinine 4.6, UA: RBC 85; WBC 2585. Past medical history: dementia, CHF, anemia, BPH, HTN, HLD Allergies: NKDA Smoking: Former smoker REVIEW OF SYSTEMS: CONSTITUTIONAL: Absent: fever, chills, diaphoresis, generalized weakness, malaise, loss of appetite, weight change HEENT: Absent: rhinorrhea, nasal congestion, throat pain, throat swelling, difficulty swallowing, mouth swelling, ear pain, eye pain, visual changes CARDIOVASCULAR: Absent: chest pain, syncope, palpitations, irregular heart rate, lightheadedness , peripheral edema RESPIRATORY: Absent: cough, shortness of breath, dyspnea with exertion, orthopnea, wheezing, stridor, hemoptysis GASTROINTESTINAL: Present: Nausea + Absent: abdominal pain, abdominal distension, nausea, vomiting, diarrhea, constipation, melena, hematochezia GENITOURINARY: Absent: dysuria, frequency, urgency, hesitancy, hematuria, flank pain, genital pain MUSCULOSKELETAL: Absent: myalgia, arthralgia, joint swelling, back pain, neck pain SKIN: Absent: rash, itching, pallor HEMATOLOGIC/IMMUNOLOGIC: Absent: easy bleeding, easy bruising, lymphadenopathy, frequent infections ENDOCRINE: Absent: unexplained weight gain, unexplained weight loss, heat intolerance, cold intolerance NEUROLOGIC: Absent: headache, focal weakness or paresthesias, dizziness, unsteady gait, seizure, mental status changes, bladder or bowel incontinence PSYCHIATRIC: Absent: anxiety, depression, suicidal or homicidal ideation, hallucinations. PHYSICAL EXAMINATION Vital Signs - 24 hr 06/01/17 06/01/17 06/01/17 00:59 03:13 06:52 Temperature Pulse Rate Pulse Rate [ 86 94 H 74 Apical] Respiratory 18 20 16 Rate Blood Pressure Blood Pressure 119/76 125/61 154/126 [Right Arm] O2 Sat by Pulse 92 L 96 94 L Oximetry (%) 06/01/17 06/01/17 06/01/17 08:54 08:57 10:29 Temperature 95.6 F L 98.8 F Pulse Rate 68 Pulse Rate [ 68 66 Apical] Respiratory 16 16 16 Rate Blood Pressure 100/61 Blood Pressure 100/61 98/64 [Right Arm] O2 Sat by Pulse 97 97 98 Oximetry (%) 06/01/17 06/01/17 12:01 13:42 Temperature 94.7 F L 94.6 F L Pulse Rate Pulse Rate [ 71 Apical] Respiratory 16 Rate Blood Pressure Blood Pressure 118/54 [Right Arm] O2 Sat by Pulse 98 Oximetry (%) GENERAL: Elderly male, Awake, alert, and fully oriented, in no acute distress. HEAD: Normal with no signs of trauma. EYES: EOM intact, no pallor or icterus. EARS, NOSE, THROAT: Ears normal. Dry mucous membranes. NECK: Supple. LUNGS: Decreased breath sounds bilaterally. No wheezes, and no crackles. HEART: Regular rate and rhythm, normal S1 and S2 without murmur. ABDOMEN: Soft, nontender, not distended, normoactive bowel sounds, no guarding, no rebound, no masses. No hepatomegaly or splenomegaly. MUSCULOSKELETAL: Normal range of motion at all joints. No bony deformities or tenderness. No CVA tenderness. UPPER EXTREMITIES: 2+ pulses, warm, well-perfused. No cyanosis. No clubbing. Cap refill <2 seconds. No peripheral edema. LOWER EXTREMITIES: 2+ pulses, warm, well-perfused. No calf tenderness. No peripheral edema. NEUROLOGICAL: No facial droop. Normal speech. Gait not observed. PSYCHIATRIC: Cooperative. Poor eye contact. Appropriate mood and affect. SKIN: Warm, dry, normal turgor, no rashes or lesions noted. Laboratory Results - last 24 hr 06/01/17 06/01/17 06:30 06:30 WBC 8.4 RBC 2.54 L Hgb 7.5 L D Hct 22.3 L MCV 87.7 MCH 29.7 MCHC 33.9 RDW 15.3 Plt Count 343 MPV 7.6 Neutrophils % 79.8 Lymphocytes % 5.1 L D Monocytes % 13.7 H Eosinophils % 1.0 D Basophils % 0.4 Sodium 143 Potassium 4.5 Chloride 109 H Carbon Dioxide 22 Anion Gap 12 BUN 76 H Creatinine 4.2 H Random Glucose 83 D Calcium 7.8 L Active Medications Generic Name Dose Route Start Last Admin Trade Name Freq PRN Reason Stop Dose Admin Acetaminophen 650 mg 05/31/17 23:49 Tylenol - PO Q6HPO PRN FEVER OR PAIN Amlodipine Besylate 10 mg 06/01/17 10:00 06/01/17 10:06 Norvasc - PO Not Given DAILY CINTHYA Ascorbic Acid 500 mg 06/01/17 10:00 06/01/17 09:33 Vitamin C - PO 500 mg BID CINTHYA Administration Emollient Ointment 1 applic 06/01/17 10:00 06/01/17 09:32 Lanolin Topical Ointment - TP 1 applic BID [facility]YA Administration Escitalopram Oxalate 20 mg 06/01/17 10:00 06/01/17 09:32 Lexapro - PO 20 mg DAILY [facility]INTHYA Administration Ferrous Sulfate 325 mg 06/01/17 10:00 06/01/17 09:31 Feosol - PO 325 mg BID [facility]YA Administration Heparin Sodium (Porcine) 5,000 unit 06/01/17 10:00 06/01/17 09:31 Heparin - SQ 5,000 unit BID [facility]INTHYA Administration CEFTRIAXONE 1 G/50 ML PREMIX 50 mls @ 100 mls/hr 06/01/17 10:00 06/01/17 09:31 Ceftriaxone 1 Gm-D5w Bag IVPB 100 mls/hr DAILY [facility]AY Administration Metoprolol Succinate 25 mg 06/01/17 10:00 06/01/17 10:06 Toprol Xl - PO Not Given DAILY [facility]YA Multivitamins/Minerals/Vitamin C 1 tab 06/01/17 10:00 06/01/17 09:33 Tab-A-Vit - PO 1 tab DAILY [facility] Administration Nystatin 1 applic 06/01/17 10:00 06/01/17 09:32 Nystop Powder - TP 1 applic BID [facility]YA Administration Olanzapine 7.5 mg 06/01/17 10:00 06/01/17 09:33 Zyprexa - PO 7.5 mg DAILY [facility] Administration Ranitidine HCl 150 mg 06/01/17 10:00 06/01/17 09:33 Zantac - PO 150 mg BID [facility] Administration Tamsulosin HCl 0.4 mg 06/01/17 08:30 06/01/17 09:30 Flomax - PO 0.4 mg DAILY@0830 [facility] Administration Triamcinolone Acetonide 1 applic 06/01/17 10:00 06/01/17 09:30 Aristocort 0.1% Lotion - TP 1 applic BID [facility] Administration Vancomycin HCl 125 mg 06/01/17 00:15 06/01/17 14:45 Vancomycin Oral Solution PO 125 mg Q6HPO [facility] Administration ASSESSMENT/PLAN: Patient is a 86 year old male with significant past medical history of dementia , CHF, anemia, BPH, HTN, HLD from [place] brought via EMS with abdominal pain and low back pain. 1. Urinary tract infection 2. Acute on chronic renal insufficiency 3. Hypertension 4. Hyperlipidemia 5. BPH 6. Normocytic anemia 7. CHF 8. Dementia Urinary tract infection Patient came in with Harris catheter from the [place]. Harris changed on 05/31/17. UA showed RBC 85; WBC 2585 Patient was already on Cipro for UTI at the [place]. On IV Ceftriaxone now. Urine culture pending, change abx as per c/s. Acute on chronic renal insufficiency non oliguric Likely could be due to dehydration in the setting of sepsis. Worsening creatinine function since last admission. Creatinine 4.2 with a BUN 76 (baseline creatinine 2.3-2.4) Start IV NS @ 83 mls.hr (has dry mucous membranes, no crackles on auscultation and no peripheral edema) ( ECHO 05/07/17: Normal left ventricular systolic function, so can continue fluids). Reassess tomorrow to change the rate of IV fluids. Avoid nephrotoxic drugs. Calculated creatinine clearance is < 15ml/min, to give meds as per his clearance I's and O's. Urine electrolytes sent. If kidney function deteriorates and doesn't improve with IV fluids would consider Renal ultrasound. Rest as per primary Case seen and discussed with Dr. Mercedes. Dispo: We will continue to follow the patient. Thank you for this consultative opportunity. Visit type - Emergency Visit Emergency Visit: Yes ED Registration Date: 05/31/17 Care time: The patient presented to the Emergency Department on the above date and was hospitalized for further evaluation of their emergent condition. - New Patient This patient is new to me today: Yes Date on this admission: 06/01/17 - Critical Care Critical Care patient: No
[2017-06-01 16:00] VITALS: BMI 24.7
--- NOTE | 2017-06-01 16:00 | PN ---
Teaching Attending Note Name of Resident: Oneida Anders (Nephrology) ATTENDING PHYSICIAN STATEMENT I saw and evaluated the patient. I reviewed the resident's note and discussed the case with the resident. I agree with the resident's findings and plan as documented. SUBJECTIVE: This is a 86 year old gentleman with PMhx of CKD Stage 4 (baseline Cr ~2.5), CHF with preserved LVEF, BPH, Hypertension, Hyperlipidemia who presented from CT with Abd pain and found to have Sepsis secondary to UTI with hypothermia and acute renal failure. PMHx: As above Allergies: NKDA Family Hx: NC Social Hx: unknown ROS: No DYER, confusion, lethargy, weakness, chest pain, sob, fever, chills, rash Home Medications Medication Instructions Recorded Acetaminophen 650 mg PO DAILY 05/31/17 Amlodipine Besylate [Norvasc -] 10 mg PO DAILY 05/31/17 Ascorbic Acid [Vitamin C] 500 mg PO BID 05/31/17 Cilostazol [Pletal -] 100 mg PO BID 05/31/17 Ciprofloxacin HCl [Cipro] 500 mg PO BID 05/31/17 Docusate Sodium [Colace -] 100 mg PO DAILY 05/31/17 Escitalopram Oxalate [Lexapro -] 20 mg PO DAILY 05/31/17 Ferrous Sulfate [Feosol] 325 mg PO BID 05/31/17 Krill Oil/[place]-3/Dha/Epa [[place]-3 1 each PO DAILY 05/31/17 Krill Oil Softgel] Metoprolol Succinate [Toprol Xl -] 25 mg PO DAILY 05/31/17 Multivitamin [One Daily] 1 each PO DAILY 05/31/17 Nystatin Powder [Nystop Topical 15 gm TP BID 05/31/17 Powder -] Olanzapine [Zyprexa -] 7.5 mg PO DAILY 05/31/17 Perphenazine [Trilafon] 0.5 mg PO DAILY 05/31/17 Ranitidine [Zantac -] 150 mg PO BID 05/31/17 Tamsulosin HCl [Flomax] 0.4 mg PO DAILY 05/31/17 Triamcinolone 0.1% Lotion 1 applic TP BID 05/31/17 [Aristocort] Vancomycin HCl 125 mg PO QID 05/31/17 Vits A and D/White Pet/Lanolin 60 gm TP BID 05/31/17 [Vitamin A & D Grx Ointment] OBJECTIVE: Vital Signs Temperature 97.7 F 06/01/17 15:49 Pulse Rate 72 06/01/17 15:49 Respiratory Rate 18 06/01/17 15:49 Blood Pressure 106/48 06/01/17 15:49 O2 Sat by Pulse Oximetry (%) 98 06/01/17 13:42 Intake & Output 05/29/17 05/30/17 05/31/17 06/01/17 23:59 23:59 23:59 23:59 Intake Total 1000 Output Total 2000 Balance -1000 Weight 164 lb 158 lb 4 oz NAD, awake and alert Dry MM, No JVD RRR, No M/R CTA (anterior exam) soft NT/ND No LE edema harris in place CBC, BMP 06/01/17 06:30 06/01/17 06:30 CXR - right basliar infiltrate, improved Current Medications Acetaminophen (Tylenol -) 650 mg PO Q6HPO PRN PRN Reason: FEVER OR PAIN Amlodipine Besylate (Norvasc -) 10 mg PO DAILY [facility] Last Admin: 06/01/17 10:06 Dose: Not Given Ascorbic Acid (Vitamin C -) 500 mg PO BID [facility] Last Admin: 06/01/17 09:33 Dose: 500 mg Emollient Ointment (Lanolin Topical Ointment -) 1 applic TP BID [facility] Last Admin: 06/01/17 09:32 Dose: 1 applic Escitalopram Oxalate (Lexapro -) 20 mg PO DAILY [facility] Last Admin: 06/01/17 09:32 Dose: 20 mg Ferrous Sulfate (Feosol -) 325 mg PO BID [facility] Last Admin: 06/01/17 09:31 Dose: 325 mg Heparin Sodium (Porcine) (Heparin -) 5,000 unit SQ BID [facility] Last Admin: 06/01/17 09:31 Dose: 5,000 unit CEFTRIAXONE 1 G/50 ML PREMIX (Ceftriaxone 1 Gm-D5w Bag) 50 mls @ 100 mls/hr IVPB DAILY [facility] Last Admin: 06/01/17 09:31 Dose: 100 mls/hr Sodium Chloride (Normal Saline -) 1,000 mls @ 83 mls/hr IV ASDIR [facility] Metoprolol Succinate (Toprol Xl -) 25 mg PO DAILY [facility] Last Admin: 06/01/17 10:06 Dose: Not Given Multivitamins/Minerals/Vitamin C (Tab-A-Vit -) 1 tab PO DAILY [facility] Last Admin: 06/01/17 09:33 Dose: 1 tab Nystatin (Nystop Powder -) 1 applic TP BID [facility] Last Admin: 06/01/17 09:32 Dose: 1 applic Olanzapine (Zyprexa -) 7.5 mg PO DAILY [facility] Last Admin: 06/01/17 09:33 Dose: 7.5 mg Ranitidine HCl (Zantac -) 150 mg PO BID [facility] Last Admin: 06/01/17 09:33 Dose: 150 mg Tamsulosin HCl (Flomax -) 0.4 mg PO DAILY@0830 [facility] Last Admin: 06/01/17 09:30 Dose: 0.4 mg Triamcinolone Acetonide (Aristocort 0.1% Lotion -) 1 applic TP BID [facility] Last Admin: 06/01/17 09:30 Dose: 1 applic Vancomycin HCl (Vancomycin Oral Solution) 125 mg PO Q6HPO [facility] Last Admin: 06/01/17 14:45 Dose: 125 mg ASSESSMENT AND PLAN: 86 year old gentleman with PMhx of CKD Stage 4 (baseline Cr ~2.5), CHF with preserved LVEF, BPH, Hypertension, Hyperlipidemia who presented from CT with Abd pain and found to have Sepsis secondary to UTI with hypothermia and acute renal failure. #Acute on chronic renal failure likely due to volume depletion in setting of sepsis/UTI check urine studies Isotonic saline at 83cc per hour trend BUN/Cr keep MAP >65 avoid IV contrast, nsaids, DIPTI/ARB monitor volume status closely #Sepsis/UTI/Hx of Cdiff continue Abx as per Id #BPH with harris harris changed this admission consider trial of void continue flomax #Acute on Chronic Anemia continue PRBC transfsion check iron tibc/ferritin may need BLAIRE given CKD Thank you Will follow Teja Mercedes DO
--- NOTE | 2017-06-01 16:07 | CON.ID ---
Consult Consult Specialty:: infectious diseases Referred by:: Reason for Consultation:: sepsis - History of Present Illness History of Present Illness: This is a 86 year old male brought via EMS, with a significant past medical history of dementia, CHF, anemia, BPH, HTN, HLD, admitted with abdominal pain and low back pain. He describes his abdominal pain as ranging from mild to moderate, localized in the suprapubic region, without radiation or modifying factors. The patient had a harris catheter in place upon presentation. 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 duo bx neg) - Alcohol/Substance Use Hx Alcohol Use: No - Smoking History Smoking history: Unknown if ever smoked Have you smoked in the past 12 months: No Aproximately how many cigarettes per day: 15 If you are a former smoker, when did you quit?: does not remember - Social History Usual Living Arrangement: Alone ADL: Support Services History of Recent Travel: No Home Medications - Allergies Allergies/Adverse Reactions: Allergies Allergy/AdvReac Type Severity Reaction Status Date / Time No Known Drug Allergies Allergy Verified 05/31/17 16:26 - Home Medications Home Medications: Ambulatory Orders Acetaminophen 650 mg PO DAILY 05/31/17 Amlodipine Besylate [Norvasc -] 10 mg PO DAILY 05/31/17 Ascorbic Acid [Vitamin C] 500 mg PO BID 05/31/17 Cilostazol [Pletal -] 100 mg PO BID 05/31/17 Ciprofloxacin HCl [Cipro] 500 mg PO BID 05/31/17 Docusate Sodium [Colace -] 100 mg PO DAILY 05/31/17 Escitalopram Oxalate [Lexapro -] 20 mg PO DAILY 05/31/17 Ferrous Sulfate [Feosol] 325 mg PO BID 05/31/17 Krill Oil/[place]-3/Dha/Epa [[place]-3 Krill Oil Softgel] 1 each PO DAILY 05/31/17 Metoprolol Succinate [Toprol Xl -] 25 mg PO DAILY 05/31/17 Multivitamin [One Daily] 1 each PO DAILY 05/31/17 Nystatin Powder [Nystop Topical Powder -] 15 gm TP BID 05/31/17 Olanzapine [Zyprexa -] 7.5 mg PO DAILY 05/31/17 Perphenazine [Trilafon] 0.5 mg PO DAILY 05/31/17 Ranitidine [Zantac -] 150 mg PO BID 05/31/17 Tamsulosin HCl [Flomax] 0.4 mg PO DAILY 05/31/17 Triamcinolone 0.1% Lotion [Aristocort] 1 applic TP BID 05/31/17 Vancomycin HCl 125 mg PO QID 05/31/17 Vits A and D/White Pet/Lanolin [Vitamin A & D Grx Ointment] 60 gm TP BID Review of Systems Unable to obtain ROS, reason: unable to obtain Physical Exam Vital Signs: Vital Signs Temperature 97.7 F 06/01/17 15:49 Pulse Rate 72 06/01/17 15:49 Respiratory Rate 18 06/01/17 15:49 Blood Pressure 106/48 06/01/17 15:49 O2 Sat by Pulse Oximetry (%) 98 06/01/17 13:42 Constitutional: Yes: Thin, Other (failure to thrive hypothermic in warming blanket) Eyes: Yes: Conjunctiva Clear Cardiovascular: Yes: Regular Rate and Rhythm Respiratory: Yes: Regular, CTA Bilaterally Gastrointestinal: Yes: Normal Bowel Sounds, Soft Renal/: Yes: Harris Present Musculoskeletal: Yes: Other Extremities: Yes: Other (cellulitis of the ext) Neurological: Yes: Other Labs: CBC, BMP 06/01/17 06:30 06/01/17 06:30 Assessment/Plan Problem List - Problems (1) Sepsis Code(s): A41.9 - SEPSIS, UNSPECIFIED ORGANISM Qualifiers: Sepsis type: sepsis due to unspecified organism Qualified Code(s): A41.9 - Sepsis, unspecified organism; A41.9 - Sepsis, unspecified organism; A41.9 - Sepsis, unspecified organism (2) UTI (urinary tract infection) Code(s): N39.0 - URINARY TRACT INFECTION, SITE NOT SPECIFIED Qualifiers: Urinary tract infection type: site unspecified Hematuria presence: without hematuria Qualified Code(s): N39.0 - Urinary tract infection, site not specified; N39.0 - Urinary tract infection, site not specified; R31.9 - Hematuria, unspecified; R31.9 - Hematuria, unspecified (3) Acute on chronic renal failure Code(s): N17.9 - ACUTE KIDNEY FAILURE, UNSPECIFIED N18.9 - CHRONIC KIDNEY DISEASE, UNSPECIFIED (4) CAD (coronary artery disease) Code(s): I25.10 - ATHSCL HEART DISEASE OF [place] CORONARY ARTERY W/O ANG PCTRS (5) CHF (congestive heart failure) Code(s): I50.9 - HEART FAILURE, UNSPECIFIED Qualifiers: Congestive heart failure type: diastolic Congestive heart failure chronicity: chronic Qualified Code(s): I50.32 - Chronic diastolic ( congestive) heart failure; I50.32 - Chronic diastolic (congestive) heart failure ; I50.32 - Chronic diastolic (congestive) heart failure; I50.32 - Chronic diastolic (congestive) heart failure (6) Dementia Code(s): F03.90 - UNSPECIFIED DEMENTIA WITHOUT BEHAVIORAL DISTURBANCE (7) HTN (hypertension) Code(s): I10 - ESSENTIAL (PRIMARY) HYPERTENSION patient well known to me from last admission coming in with sepsis and hypothermia plan continue oral vanco souza tat zosyn temp management hydration nutrition
[2017-06-01] MEDS: SODIUM CHLORIDE 1,000 ML IV SCH (18:11)
[2017-06-01] MEDS: PIPERACILLIN/TAZOB 2.25 GM 50 ML IVPB SCH ×2 (18:11→21:18)
[2017-06-02] MEDS: VANCOMYCIN 250 MG/5 ML ORAL SOLUTION PO SCH ×5 (01:04→23:06)
[2017-06-02] MEDS: PIPERACILLIN/TAZOB 2.25 GM 50 ML IVPB SCH ×5 (02:59→22:20)
[2017-06-02] MEDS ORDERED: OLANZapine 2.5 MG TABLET PO SCH (04:45)
[2017-06-02] MEDS: SODIUM CHLORIDE 1,000 ML IV SCH ×2 (06:14→17:06)
[2017-06-02] MEDS ORDERED: PT OWN MED DRAWER 7, Y5N ONE ×3 (08:41→23:01)
[2017-06-02 08:55] LABS: BASOPHIL 0.5 % (0-2.0); EOSINOPHIL 1.3 % (0-4.5); MCH 29.8 pg (25.7-33.7); MEAN CELL VOLUME 90.4 fl (80-96); MEAN PLT VOLUME 8.1 fl (7.5-11.1); NEUTROPHILS 82.7 % (42.8-82.8); PLATELET COUNT 332 K/MM3 (134-434); RDW 15.3 % (11.9-15.9); WHITE BLOOD COUNT 7.5 K/mm3 (4.0-10.0)
[2017-06-02 09:12] LABS: ALBUMIN 1.8 g/dl (3.4-5.0); ALK PHOS 117 U/L (45-117); ANION GAP 12 (8-16); BILIRUBIN,TOTAL 0.2 mg/dL (0.2-1.0); CALCIUM 7.8 mg/dL (8.5-10.1); CO2 20 mmol/L (21-32); CREATININE 4.2 mg/dL (0.7-1.3); GLUCOSE,RANDOM 64 mg/dL (74-106); PHOSPHOROUS 5.5 mg/dL (2.5-4.9); SGOT/AST 9 U/L (15-37); SGPT/ALT 15 U/L (12-78); TOT PROT 4.6 g/dl (6.4-8.2)
[2017-06-02] MEDS: RANITIDINE HCL 150 MG TABLET (FP) PO SCH ×2 (10:20→23:02)
[2017-06-02] MEDS: ESCITALOPRAM OXALATE 20 MG TABLET (FP) PO SCH (10:20)
[2017-06-02] MEDS: MULTIVITAMINS (DAILY MVI) TABLET (FP) PO SCH (10:20)
[2017-06-02] MEDS: FERROUS SO4 325 MG TABLET (FP) PO SCH ×2 (10:20→23:02)
[2017-06-02] MEDS: TAMSULOSIN HCL 0.4 MG CAP.ER.24H (FP) PO SCH (10:20)
[2017-06-02] MEDS: amLODIPine BESYLATE 10 MG TABLET (FP) PO SCH (10:20)
[2017-06-02] MEDS: ASCORBIC ACID 500 MG TABLET (FP) PO SCH ×2 (10:20→23:02)
[2017-06-02] MEDS: METOPROLOL SUCCINATE 25 MG TAB.SR.24H (FP) PO SCH (10:20)
[2017-06-02] MEDS: HEPARIN NA (PORCINE) 5,000 UNITS/ML 1ML VIAL SQ SCH ×2 (10:20→23:02)
[2017-06-02] MEDS: OLANZapine 2.5 MG TABLET PO SCH (10:20)
[2017-06-02] MEDS: TRIAMCINOLONE ACET 0.1% 60 ML LOTION TP SCH ×2 (10:21→22:59)
[2017-06-02] MEDS: LANOLIN (EMOLL) 30 GM TUBE TP SCH ×2 (10:21→22:59)
[2017-06-02] MEDS: NYSTATIN POWDER 100,000 UNITS/GM - 15 GM TOPICAL POWDER TP SCH ×2 (10:21→23:03)
--- NOTE | 2017-06-02 12:51 | PN ---
Progress Note, Physician Chief Complaint: No new complaints , not in distress, oriented to self - Current Medication List Current Medications: Active Medications Acetaminophen (Tylenol -) 650 mg PO Q6HPO PRN PRN Reason: FEVER OR PAIN Amlodipine Besylate (Norvasc -) 10 mg PO DAILY [facility] Last Admin: 06/02/17 10:20 Dose: 10 mg Ascorbic Acid (Vitamin C -) 500 mg PO BID [facility] Last Admin: 06/02/17 10:20 Dose: 500 mg Emollient Ointment (Lanolin Topical Ointment -) 1 applic TP BID [facility] Last Admin: 06/02/17 10:21 Dose: 1 applic Escitalopram Oxalate (Lexapro -) 20 mg PO DAILY [facility] Last Admin: 06/02/17 10:20 Dose: 20 mg Ferrous Sulfate (Feosol -) 325 mg PO BID [facility] Last Admin: 06/02/17 10:20 Dose: 325 mg Heparin Sodium (Porcine) (Heparin -) 5,000 unit SQ BID [facility] Last Admin: 06/02/17 10:20 Dose: 5,000 unit Sodium Chloride (Normal Saline -) 1,000 mls @ 83 mls/hr IV ASDIR [facility] Last Admin: 06/02/17 06:14 Dose: 83 mls/hr Piperacillin/Tazobactam/Dextrose (Zosyn 2.25gm Ivpb (Premix)) 50 mls @ 100 mls/ hr IVPB Q6H-IV [facility] PRN Reason: Protocol Last Admin: 06/02/17 10:20 Dose: 100 mls/hr Metoprolol Succinate (Toprol Xl -) 25 mg PO DAILY [facility] Last Admin: 06/02/17 10:20 Dose: 25 mg Multivitamins/Minerals/Vitamin C (Tab-A-Vit -) 1 tab PO DAILY [facility] Last Admin: 06/02/17 10:20 Dose: 1 tab Nystatin (Nystop Powder -) 1 applic TP BID [facility] Last Admin: 06/02/17 10:21 Dose: 1 applic Olanzapine (Zyprexa -) 7.5 mg PO DAILY [facility] Last Admin: 06/02/17 10:20 Dose: 7.5 mg Ranitidine HCl (Zantac -) 150 mg PO BID [facility] Last Admin: 06/02/17 10:20 Dose: 150 mg Tamsulosin HCl (Flomax -) 0.4 mg PO DAILY@0830 [facility] Last Admin: 06/02/17 10:20 Dose: 0.4 mg Triamcinolone Acetonide (Aristocort 0.1% Lotion -) 1 applic TP BID [facility] Last Admin: 06/02/17 10:21 Dose: 1 applic Vancomycin HCl (Vancomycin Oral Solution) 125 mg PO Q6HPO [facility] Last Admin: 06/02/17 12:02 Dose: 125 mg - Objective Vital Signs: Vital Signs Temperature 98.1 F 06/02/17 07:13 Pulse Rate 76 06/02/17 07:13 Respiratory Rate 18 06/02/17 07:13 Blood Pressure 128/62 06/02/17 07:13 O2 Sat by Pulse Oximetry (%) 95 06/01/17 21:00 Elderly man with Dementia, oriented to self denies any complaints HEENT: Mm moist no anemia, NECK: No JVD No Bruit CHEST: CTA B/L CVs: S1S2 R ABD: No distention, non tender Bs + EXT: B/L LE erythema, No edema feet, no calf tenderness Pulses + 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: alert , oriented to self, Non focal Labs: CBC, BMP 06/02/17 06:00 06/02/17 06:00 INR, PTT INR 1.07 (0.82-1.09) 05/31/17 18:00 Problem List - Problems (1) UTI (urinary tract infection) Assessment/Plan: Urine Grew non fermenters GNB cont Zosyn Code(s): N39.0 - URINARY TRACT INFECTION, SITE NOT SPECIFIED Qualifiers: Urinary tract infection type: site unspecified Hematuria presence: without hematuria Qualified Code(s): N39.0 - Urinary tract infection, site not specified; N39.0 - Urinary tract infection, site not specified; R31.9 - Hematuria, unspecified; R31.9 - Hematuria, unspecified (2) HTN (hypertension) Assessment/Plan: Chronic cont curret management. Code(s): I10 - ESSENTIAL (PRIMARY) HYPERTENSION (3) CAD (coronary artery disease) Assessment/Plan: Stable no active issue Code(s): I25.10 - ATHSCL HEART DISEASE OF [place] CORONARY ARTERY W/O ANG PCTRS (4) Acute kidney injury Assessment/Plan: Due to dehydration now improving Code(s): N17.9 - ACUTE KIDNEY FAILURE, UNSPECIFIED (5) Schizo-affective schizophrenia, chronic condition Assessment/Plan: Chronic stable copnt home meds/. Code(s): F25.8 - OTHER SCHIZOAFFECTIVE DISORDERS
--- NOTE | 2017-06-02 13:31 | PN ---
Progress Note, Physician History of Present Illness: patient looks better temp normal off of heating blanket - Current Medication List Current Medications: Active Medications Acetaminophen (Tylenol -) 650 mg PO Q6HPO PRN PRN Reason: FEVER OR PAIN Amlodipine Besylate (Norvasc -) 10 mg PO DAILY [facility] Last Admin: 06/02/17 10:20 Dose: 10 mg Ascorbic Acid (Vitamin C -) 500 mg PO BID [facility] Last Admin: 06/02/17 10:20 Dose: 500 mg Emollient Ointment (Lanolin Topical Ointment -) 1 applic TP BID [facility] Last Admin: 06/02/17 10:21 Dose: 1 applic Escitalopram Oxalate (Lexapro -) 20 mg PO DAILY [facility] Last Admin: 06/02/17 10:20 Dose: 20 mg Ferrous Sulfate (Feosol -) 325 mg PO BID [facility] Last Admin: 06/02/17 10:20 Dose: 325 mg Heparin Sodium (Porcine) (Heparin -) 5,000 unit SQ BID [facility] Last Admin: 06/02/17 10:20 Dose: 5,000 unit Sodium Chloride (Normal Saline -) 1,000 mls @ 83 mls/hr IV ASDIR [facility] Last Admin: 06/02/17 06:14 Dose: 83 mls/hr Piperacillin/Tazobactam/Dextrose (Zosyn 2.25gm Ivpb (Premix)) 50 mls @ 100 mls/ hr IVPB Q6H-IV [facility] PRN Reason: Protocol Last Admin: 06/02/17 10:20 Dose: 100 mls/hr Metoprolol Succinate (Toprol Xl -) 25 mg PO DAILY [facility] Last Admin: 06/02/17 10:20 Dose: 25 mg Multivitamins/Minerals/Vitamin C (Tab-A-Vit -) 1 tab PO DAILY [facility] Last Admin: 06/02/17 10:20 Dose: 1 tab Nystatin (Nystop Powder -) 1 applic TP BID [facility] Last Admin: 06/02/17 10:21 Dose: 1 applic Olanzapine (Zyprexa -) 7.5 mg PO DAILY [facility] Last Admin: 06/02/17 10:20 Dose: 7.5 mg Ranitidine HCl (Zantac -) 150 mg PO BID [facility] Last Admin: 06/02/17 10:20 Dose: 150 mg Tamsulosin HCl (Flomax -) 0.4 mg PO DAILY@0830 [facility] Last Admin: 06/02/17 10:20 Dose: 0.4 mg Triamcinolone Acetonide (Aristocort 0.1% Lotion -) 1 applic TP BID [facility] Last Admin: 06/02/17 10:21 Dose: 1 applic Vancomycin HCl (Vancomycin Oral Solution) 125 mg PO Q6HPO [facility] Last Admin: 06/02/17 12:02 Dose: 125 mg - Objective Vital Signs: Vital Signs Temperature 98.4 F 06/02/17 13:00 Pulse Rate 73 06/02/17 13:00 Respiratory Rate 18 06/02/17 13:00 Blood Pressure 109/51 06/02/17 13:00 O2 Sat by Pulse Oximetry (%) 95 06/02/17 09:00 Constitutional: Yes: No Distress, Calm Cardiovascular: Yes: Regular Rate and Rhythm Respiratory: Yes: Regular, CTA Bilaterally Gastrointestinal: Yes: Normal Bowel Sounds, Soft Musculoskeletal: Yes: Other Extremities: Yes: Other (erythema improving) Neurological: Yes: Alert, Other Psychiatric: Yes: Alert Labs: CBC, BMP 06/02/17 06:00 06/02/17 06:00 INR, PTT INR 1.07 (0.82-1.09) 05/31/17 18:00 Assessment/Plan Problem List - Problems (1) Sepsis Code(s): A41.9 - SEPSIS, UNSPECIFIED ORGANISM Qualifiers: Sepsis type: sepsis due to unspecified organism Qualified Code(s): A41.9 - Sepsis, unspecified organism; A41.9 - Sepsis, unspecified organism; A41.9 - Sepsis, unspecified organism (2) UTI (urinary tract infection) Code(s): N39.0 - URINARY TRACT INFECTION, SITE NOT SPECIFIED Qualifiers: Urinary tract infection type: site unspecified Hematuria presence: without hematuria Qualified Code(s): N39.0 - Urinary tract infection, site not specified; N39.0 - Urinary tract infection, site not specified; R31.9 - Hematuria, unspecified; R31.9 - Hematuria, unspecified (3) Acute on chronic renal failure Code(s): N17.9 - ACUTE KIDNEY FAILURE, UNSPECIFIED N18.9 - CHRONIC KIDNEY DISEASE, UNSPECIFIED (4) CAD (coronary artery disease) Code(s): I25.10 - ATHSCL HEART DISEASE OF [place] CORONARY ARTERY W/O ANG PCTRS (5) CHF (congestive heart failure) Code(s): I50.9 - HEART FAILURE, UNSPECIFIED Qualifiers: Congestive heart failure type: diastolic Congestive heart failure chronicity: chronic Qualified Code(s): I50.32 - Chronic diastolic ( congestive) heart failure; I50.32 - Chronic diastolic (congestive) heart failure ; I50.32 - Chronic diastolic (congestive) heart failure; I50.32 - Chronic diastolic (congestive) heart failure (6) Dementia Code(s): F03.90 - UNSPECIFIED DEMENTIA WITHOUT BEHAVIORAL DISTURBANCE (7) HTN (hypertension) Code(s): I10 - ESSENTIAL (PRIMARY) HYPERTENSION patient well known to me from last admission coming in with sepsis and hypothermia plan continue oral vanco continue abx temp management hydration nutrition
--- NOTE | 2017-06-02 15:57 | PN ---
Progress Note, Physician Chief Complaint: The patient seen in his room. Seems comfortable. IV fluids well tolerated. The temperature has improved. History of Present Illness: This is a 86 year old gentleman with PMhx of CKD Stage 4 (baseline Cr ~2.5), CHF with preserved LVEF, BPH, Hypertension, Hyperlipidemia who presented from [place] with Abd pain and found to have Sepsis secondary to UTI with hypothermia and acute renal failure. - Current Medication List Current Medications: Active Medications Acetaminophen (Tylenol -) 650 mg PO Q6HPO PRN PRN Reason: FEVER OR PAIN Amlodipine Besylate (Norvasc -) 10 mg PO DAILY [facility] Last Admin: 06/02/17 10:20 Dose: 10 mg Ascorbic Acid (Vitamin C -) 500 mg PO BID [facility] Last Admin: 06/02/17 10:20 Dose: 500 mg Emollient Ointment (Lanolin Topical Ointment -) 1 applic TP BID [facility] Last Admin: 06/02/17 10:21 Dose: 1 applic Escitalopram Oxalate (Lexapro -) 20 mg PO DAILY [facility] Last Admin: 06/02/17 10:20 Dose: 20 mg Ferrous Sulfate (Feosol -) 325 mg PO BID [facility] Last Admin: 06/02/17 10:20 Dose: 325 mg Heparin Sodium (Porcine) (Heparin -) 5,000 unit SQ BID [facility] Last Admin: 06/02/17 10:20 Dose: 5,000 unit Sodium Chloride (Normal Saline -) 1,000 mls @ 83 mls/hr IV ASDIR [facility] Last Admin: 06/02/17 06:14 Dose: 83 mls/hr Piperacillin/Tazobactam/Dextrose (Zosyn 2.25gm Ivpb (Premix)) 50 mls @ 100 mls/ hr IVPB Q6H-IV [facility] PRN Reason: Protocol Last Admin: 06/02/17 10:20 Dose: 100 mls/hr Metoprolol Succinate (Toprol Xl -) 25 mg PO DAILY [facility] Last Admin: 06/02/17 10:20 Dose: 25 mg Multivitamins/Minerals/Vitamin C (Tab-A-Vit -) 1 tab PO DAILY [facility] Last Admin: 06/02/17 10:20 Dose: 1 tab Nystatin (Nystop Powder -) 1 applic TP BID [facility] Last Admin: 06/02/17 10:21 Dose: 1 applic Olanzapine (Zyprexa -) 7.5 mg PO DAILY [facility] Last Admin: 06/02/17 10:20 Dose: 7.5 mg Ranitidine HCl (Zantac -) 150 mg PO BID [facility] Last Admin: 06/02/17 10:20 Dose: 150 mg Tamsulosin HCl (Flomax -) 0.4 mg PO DAILY@0830 [facility] Last Admin: 06/02/17 10:20 Dose: 0.4 mg Triamcinolone Acetonide (Aristocort 0.1% Lotion -) 1 applic TP BID [facility] Last Admin: 06/02/17 10:21 Dose: 1 applic Vancomycin HCl (Vancomycin Oral Solution) 125 mg PO Q6HPO [facility] Last Admin: 06/02/17 12:02 Dose: 125 mg - Objective Vital Signs: Vital Signs Temperature 98.2 F 06/02/17 15:48 Pulse Rate 73 06/02/17 15:48 Respiratory Rate 18 06/02/17 15:48 Blood Pressure 118/55 06/02/17 15:48 O2 Sat by Pulse Oximetry (%) 95 06/02/17 09:00 Constitutional: Yes: Calm, Pallor Eyes: Yes: Conjunctiva Clear HENT: Yes: Normocephalic Neck: Yes: Trachea Midline Cardiovascular: Yes: S1, S2 Respiratory: Yes: Regular, Diminished Gastrointestinal: Yes: Normal Bowel Sounds, Soft Labs: CBC, BMP 06/02/17 06:00 06/02/17 06:00 INR, PTT INR 1.07 (0.82-1.09) 05/31/17 18:00 Problem List - Problems (1) Acute kidney injury Code(s): N17.9 - ACUTE KIDNEY FAILURE, UNSPECIFIED (2) Acute on chronic renal failure Code(s): N17.9 - ACUTE KIDNEY FAILURE, UNSPECIFIED N18.9 - CHRONIC KIDNEY DISEASE, UNSPECIFIED (3) Anemia Code(s): D64.9 - ANEMIA, UNSPECIFIED Qualifiers: 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 Code(s): D50.0 - Iron deficiency anemia secondary to blood loss (chronic); D50.0 - Iron deficiency anemia secondary to blood loss (chronic) (4) Dementia Code(s): F03.90 - UNSPECIFIED DEMENTIA WITHOUT BEHAVIORAL DISTURBANCE (5) HTN (hypertension) Code(s): I10 - ESSENTIAL (PRIMARY) HYPERTENSION (6) Urinary retention Code(s): R33.9 - RETENTION OF URINE, UNSPECIFIED Assessment/Plan This is a 86 year old gentleman with PMhx of CKD Stage 4 (baseline Cr ~2.5), CHF with preserved LVEF, BPH, Hypertension, Hyperlipidemia who presented [place] with [place] and found to have Sepsis secondary to UTI with hypothermia Acute Renal failure superimposed on CKD4. The Renal functions are stable. IV fluids well tolerated. Profound Anemia. ? etology. ?? PRBC transfusion. Will reduce IV fluids to 40 ml/hr. Should consider PRBC transfusion in view of advanced Anemia in this elderly patient with multiple co-morbid conditions. Thank you. Will follow with you. Mary Mirza MD
[2017-06-03] MEDS: PIPERACILLIN/TAZOB 2.25 GM 50 ML IVPB SCH ×4 (03:17→20:40)
[2017-06-03] MEDS: VANCOMYCIN 250 MG/5 ML ORAL SOLUTION PO SCH ×3 (06:06→17:25)
[2017-06-03 06:37] LABS: SERUM IRON 28 ug/dL (38-169); TOTAL IRON BINDING CAPACITY 156 ug/dL (250-450); UIBC 128 ug/dL (111-343)
[2017-06-03 08:24] LABS: ANION GAP 11 (8-16); CO2 22 mmol/L (21-32); GLUCOSE,RANDOM 92 mg/dL (74-106)
[2017-06-03 08:29] LABS: BASOPHIL 0.6 % (0-2.0); MCH 30.2 pg (25.7-33.7); MCHC 34.3 g/dl (32.0-35.9); MEAN PLT VOLUME 7.9 fl (7.5-11.1); NEUTROPHILS 84.4 % (42.8-82.8); PLATELET COUNT 354 K/MM3 (134-434); RDW 14.9 % (11.9-15.9); WHITE BLOOD COUNT 9.4 K/mm3 (4.0-10.0)
[2017-06-03] MEDS: TAMSULOSIN HCL 0.4 MG CAP.ER.24H (FP) PO SCH (08:35)
[2017-06-03] MEDS ORDERED: PT OWN MED DRAWER 7, Y5N ONE (09:44)
[2017-06-03] MEDS: NYSTATIN POWDER 100,000 UNITS/GM - 15 GM TOPICAL POWDER TP SCH ×2 (09:51→21:16)
[2017-06-03] MEDS: LANOLIN (EMOLL) 30 GM TUBE TP SCH ×2 (09:51→21:17)
[2017-06-03] MEDS: TRIAMCINOLONE ACET 0.1% 60 ML LOTION TP SCH ×2 (09:51→21:17)
[2017-06-03] MEDS: METOPROLOL SUCCINATE 25 MG TAB.SR.24H (FP) PO SCH (09:52)
[2017-06-03] MEDS: FERROUS SO4 325 MG TABLET (FP) PO SCH ×2 (09:52→21:07)
[2017-06-03] MEDS: amLODIPine BESYLATE 10 MG TABLET (FP) PO SCH (09:52)
[2017-06-03] MEDS: OLANZapine 2.5 MG TABLET PO SCH (09:52)
[2017-06-03] MEDS: ESCITALOPRAM OXALATE 20 MG TABLET (FP) PO SCH (09:52)
[2017-06-03] MEDS: RANITIDINE HCL 150 MG TABLET (FP) PO SCH ×2 (09:52→21:07)
[2017-06-03] MEDS: HEPARIN NA (PORCINE) 5,000 UNITS/ML 1ML VIAL SQ SCH ×2 (09:52→21:07)
[2017-06-03] MEDS: ASCORBIC ACID 500 MG TABLET (FP) PO SCH ×2 (09:52→21:07)
[2017-06-03] MEDS: MULTIVITAMINS (DAILY MVI) TABLET (FP) PO SCH (09:52)
[2017-06-03] MEDS ORDERED: ALBUTEROL SO4 2.5/IPRATROPIUM 0.5 INH SOL 3 ML VIAL.NEB. NEB PRN (10:54)
[2017-06-03] MEDS ORDERED: FUROSEMIDE 40 MG/4 ML INJECTABLE VIAL IVPUSH ONE (11:00)
--- NOTE | 2017-06-03 12:30 | PN ---
Progress Note, Physician History of Present Illness: patient lookng much more awake and alert confusion is baseline dementia no complaints - Current Medication List Current Medications: Active Medications Acetaminophen (Tylenol -) 650 mg PO Q6HPO PRN PRN Reason: FEVER OR PAIN Albuterol/Ipratropium (Duoneb -) 1 amp NEB Q6H PRN Amlodipine Besylate (Norvasc -) 10 mg PO DAILY [facility] Last Admin: 06/03/17 09:52 Dose: 10 mg Ascorbic Acid (Vitamin C -) 500 mg PO BID [facility] Last Admin: 06/03/17 09:52 Dose: 500 mg Emollient Ointment (Lanolin Topical Ointment -) 1 applic TP BID [facility] Last Admin: 06/03/17 09:51 Dose: 1 applic Escitalopram Oxalate (Lexapro -) 20 mg PO DAILY [facility] Last Admin: 06/03/17 09:52 Dose: 20 mg Ferrous Sulfate (Feosol -) 325 mg PO BID [facility] Last Admin: 06/03/17 09:52 Dose: 325 mg Heparin Sodium (Porcine) (Heparin -) 5,000 unit SQ BID [facility] Last Admin: 06/03/17 09:52 Dose: 5,000 unit Piperacillin/Tazobactam/Dextrose (Zosyn 2.25gm Ivpb (Premix)) 50 mls @ 100 mls/ hr IVPB Q6H-IV CINTHYA PRN Reason: Protocol Last Admin: 06/03/17 08:35 Dose: 100 mls/hr Sodium Chloride (Normal Saline -) 1,000 mls @ 40 mls/hr IV ASDIR [facility] Last Admin: 06/02/17 17:06 Dose: 40 mls/hr Metoprolol Succinate (Toprol Xl -) 25 mg PO DAILY [facility] Last Admin: 06/03/17 09:52 Dose: 25 mg Multivitamins/Minerals/Vitamin C (Tab-A-Vit -) 1 tab PO DAILY [facility] Last Admin: 06/03/17 09:52 Dose: 1 tab Nystatin (Nystop Powder -) 1 applic TP BID [facility] Last Admin: 06/03/17 09:51 Dose: 1 applic Olanzapine (Zyprexa -) 7.5 mg PO DAILY [facility] Last Admin: 06/03/17 09:52 Dose: 7.5 mg Ranitidine HCl (Zantac -) 150 mg PO BID [facility] Last Admin: 06/03/17 09:52 Dose: 150 mg Tamsulosin HCl (Flomax -) 0.4 mg PO DAILY@0830 [facility] Last Admin: 06/03/17 08:35 Dose: 0.4 mg Triamcinolone Acetonide (Aristocort 0.1% Lotion -) 1 applic TP BID [facility] Last Admin: 06/03/17 09:51 Dose: 1 applic Vancomycin HCl (Vancomycin Oral Solution) 125 mg PO Q6HPO [facility] Last Admin: 06/03/17 11:46 Dose: 125 mg - Objective Vital Signs: Vital Signs Temperature 97.7 F 06/03/17 10:00 Pulse Rate 68 06/03/17 10:00 Respiratory Rate 20 06/03/17 10:00 Blood Pressure 133/60 06/03/17 10:00 O2 Sat by Pulse Oximetry (%) 95 06/03/17 09:00 Constitutional: Yes: No Distress, Calm HENT: Yes: Atraumatic Cardiovascular: Yes: Regular Rate and Rhythm Respiratory: Yes: Regular, CTA Bilaterally Gastrointestinal: Yes: Normal Bowel Sounds, Soft Genitourinary: Yes: [place] Present Musculoskeletal: Yes: Other Extremities: Yes: Erythema (improving) Integumentary: Yes: Erythema Neurological: Yes: Alert, Other Psychiatric: Yes: Alert Labs: CBC, BMP 06/03/17 06:00 06/03/17 06:00 INR, PTT INR 1.07 (0.82-1.09) 05/31/17 18:00 Assessment/Plan Problem List - Problems (1) Sepsis Code(s): A41.9 - SEPSIS, UNSPECIFIED ORGANISM Qualifiers: Sepsis type: sepsis due to unspecified organism Qualified Code(s): A41.9 - Sepsis, unspecified organism; A41.9 - Sepsis, unspecified organism; A41.9 - Sepsis, unspecified organism (2) UTI (urinary tract infection) Code(s): N39.0 - URINARY TRACT INFECTION, SITE NOT SPECIFIED Qualifiers: Urinary tract infection type: site unspecified Hematuria presence: without hematuria Qualified Code(s): N39.0 - Urinary tract infection, site not specified; N39.0 - Urinary tract infection, site not specified; R31.9 - Hematuria, unspecified; R31.9 - Hematuria, unspecified (3) Acute on chronic renal failure Code(s): N17.9 - ACUTE KIDNEY FAILURE, UNSPECIFIED N18.9 - CHRONIC KIDNEY DISEASE, UNSPECIFIED (4) CAD (coronary artery disease) Code(s): I25.10 - ATHSCL HEART DISEASE OF [place] CORONARY ARTERY W/O ANG PCTRS (5) CHF (congestive heart failure) Code(s): I50.9 - HEART FAILURE, UNSPECIFIED Qualifiers: Congestive heart failure type: diastolic Congestive heart failure chronicity: chronic Qualified Code(s): I50.32 - Chronic diastolic ( congestive) heart failure; I50.32 - Chronic diastolic (congestive) heart failure ; I50.32 - Chronic diastolic (congestive) heart failure; I50.32 - Chronic diastolic (congestive) heart failure (6) Dementia Code(s): F03.90 - UNSPECIFIED DEMENTIA WITHOUT BEHAVIORAL DISTURBANCE (7) HTN (hypertension) Code(s): I10 - ESSENTIAL (PRIMARY) HYPERTENSION patient well known to me from last admission coming in with sepsis and hypothermia plan continue oral vanco cx result noted continue abx rest as per primary
--- NOTE | 2017-06-03 12:48 | PN ---
Progress Note, Physician Chief Complaint: The patient seen in his room. Seems comfortable. Much more awake and alert. Received PRBC. IV fluids well tolerated. Excellent urine output. - Current Medication List Current Medications: Active Medications Acetaminophen (Tylenol -) 650 mg PO Q6HPO PRN PRN Reason: FEVER OR PAIN Albuterol/Ipratropium (Duoneb -) 1 amp NEB Q6H PRN Amlodipine Besylate (Norvasc -) 10 mg PO DAILY [facility] Last Admin: 06/03/17 09:52 Dose: 10 mg Ascorbic Acid (Vitamin C -) 500 mg PO BID [facility] Last Admin: 06/03/17 09:52 Dose: 500 mg Emollient Ointment (Lanolin Topical Ointment -) 1 applic TP BID [facility] Last Admin: 06/03/17 09:51 Dose: 1 applic Escitalopram Oxalate (Lexapro -) 20 mg PO DAILY [facility] Last Admin: 06/03/17 09:52 Dose: 20 mg Ferrous Sulfate (Feosol -) 325 mg PO BID [facility] Last Admin: 06/03/17 09:52 Dose: 325 mg Heparin Sodium (Porcine) (Heparin -) 5,000 unit SQ BID [facility] Last Admin: 06/03/17 09:52 Dose: 5,000 unit Piperacillin/Tazobactam/Dextrose (Zosyn 2.25gm Ivpb (Premix)) 50 mls @ 100 mls/ hr IVPB Q6H-IV CIN[facility]YA PRN Reason: Protocol Last Admin: 06/03/17 08:35 Dose: 100 mls/hr Sodium Chloride (Normal Saline -) 1,000 mls @ 40 mls/hr IV ASDIR [facility] Last Admin: 06/02/17 17:06 Dose: 40 mls/hr Metoprolol Succinate (Toprol Xl -) 25 mg PO DAILY [facility] Last Admin: 06/03/17 09:52 Dose: 25 mg Multivitamins/Minerals/Vitamin C (Tab-A-Vit -) 1 tab PO DAILY [facility] Last Admin: 06/03/17 09:52 Dose: 1 tab Nystatin (Nystop Powder -) 1 applic TP BID [facility] Last Admin: 06/03/17 09:51 Dose: 1 applic Olanzapine (Zyprexa -) 7.5 mg PO DAILY [facility] Last Admin: 06/03/17 09:52 Dose: 7.5 mg Ranitidine HCl (Zantac -) 150 mg PO BID [facility] Last Admin: 06/03/17 09:52 Dose: 150 mg Tamsulosin HCl (Flomax -) 0.4 mg PO DAILY@0830 [facility] Last Admin: 06/03/17 08:35 Dose: 0.4 mg Triamcinolone Acetonide (Aristocort 0.1% Lotion -) 1 applic TP BID [facility] Last Admin: 06/03/17 09:51 Dose: 1 applic Vancomycin HCl (Vancomycin Oral Solution) 125 mg PO Q6HPO [facility] Last Admin: 06/03/17 11:46 Dose: 125 mg - Objective Vital Signs: Vital Signs Temperature 97.7 F 06/03/17 10:00 Pulse Rate 68 06/03/17 10:00 Respiratory Rate 20 06/03/17 10:00 Blood Pressure 133/60 06/03/17 10:00 O2 Sat by Pulse Oximetry (%) 95 06/03/17 09:00 Constitutional: Yes: No Distress, Pallor Eyes: Yes: Conjunctiva Clear HENT: Yes: Atraumatic Neck: Yes: Trachea Midline Cardiovascular: Yes: S1, S2 Respiratory: Yes: Regular, Diminished Gastrointestinal: Yes: Normal Bowel Sounds Neurological: Yes: Alert Psychiatric: Yes: Alert Labs: CBC, BMP 06/03/17 06:00 06/03/17 06:00 INR, PTT INR 1.07 (0.82-1.09) 05/31/17 18:00 Problem List - Problems (1) Acute kidney injury Code(s): N17.9 - ACUTE KIDNEY FAILURE, UNSPECIFIED (2) Acute on chronic renal failure Code(s): N17.9 - ACUTE KIDNEY FAILURE, UNSPECIFIED N18.9 - CHRONIC KIDNEY DISEASE, UNSPECIFIED (3) Anemia Code(s): D64.9 - ANEMIA, UNSPECIFIED Qualifiers: 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 Code(s): D50.0 - Iron deficiency anemia secondary to blood loss (chronic); D50.0 - Iron deficiency anemia secondary to blood loss (chronic) (4) Dementia Code(s): F03.90 - UNSPECIFIED DEMENTIA WITHOUT BEHAVIORAL DISTURBANCE (5) HTN (hypertension) Code(s): I10 - ESSENTIAL (PRIMARY) HYPERTENSION (6) Urinary retention Code(s): R33.9 - RETENTION OF URINE, UNSPECIFIED Assessment/Plan This is a 86 year old gentleman with PMhx of CKD Stage 4 (baseline Cr ~2.5), CHF with preserved LVEF, BPH, Hypertension, Hyperlipidemia who presented from [place] with Abd pain and found to have Sepsis secondary to UTI with hypothermia Acute Renal failure superimposed on CKD4. The Renal functions are slowly improving. IV fluids well tolerated. Received 1 unit PRBC yesterday, that improved his general hemodynamics. Will reduce IV fluids to 40 ml/hr. Will monitor the Renal functions. Thank you. Will follow with you. Mary Mirza MD
[2017-06-03] MEDS: SODIUM CHLORIDE 1,000 ML IV SCH (20:41)
[2017-06-04] MEDS: VANCOMYCIN 250 MG/5 ML ORAL SOLUTION PO SCH ×4 (00:25→12:36)
--- NOTE | 2017-06-04 00:33 | PN ---
Progress Note, Physician Chief Complaint: No new complaints , not in distress, oriented to self History of Present Illness: Elderly man with multiple co-morbidities present with sepsis grew Pseudominas in urine - Current Medication List Current Medications: Active Medications Acetaminophen (Tylenol -) 650 mg PO Q6HPO PRN PRN Reason: FEVER OR PAIN Albuterol/Ipratropium (Duoneb -) 1 amp NEB Q6H PRN Last Admin: 06/03/17 12:29 Dose: 1 amp Amlodipine Besylate (Norvasc -) 10 mg PO DAILY [facility] Last Admin: 06/03/17 09:52 Dose: 10 mg Ascorbic Acid (Vitamin C -) 500 mg PO BID [facility] Last Admin: 06/03/17 21:07 Dose: 500 mg Emollient Ointment (Lanolin Topical Ointment -) 1 applic TP BID [facility] Last Admin: 06/03/17 21:17 Dose: 1 applic Escitalopram Oxalate (Lexapro -) 20 mg PO DAILY [facility] Last Admin: 06/03/17 09:52 Dose: 20 mg Ferrous Sulfate (Feosol -) 325 mg PO BID [facility] Last Admin: 06/03/17 21:07 Dose: 325 mg Heparin Sodium (Porcine) (Heparin -) 5,000 unit SQ BID [facility] Last Admin: 06/03/17 21:07 Dose: 5,000 unit Piperacillin/Tazobactam/Dextrose (Zosyn 2.25gm Ivpb (Premix)) 50 mls @ 100 mls/ hr IVPB Q6H-IV CINTHYA PRN Reason: Protocol Last Admin: 06/03/17 20:40 Dose: 100 mls/hr Sodium Chloride (Normal Saline -) 1,000 mls @ 40 mls/hr IV ASDIR [facility] Last Admin: 06/03/17 20:41 Dose: Not Given Metoprolol Succinate (Toprol Xl -) 25 mg PO DAILY [facility] Last Admin: 06/03/17 09:52 Dose: 25 mg Multivitamins/Minerals/Vitamin C (Tab-A-Vit -) 1 tab PO DAILY [facility] Last Admin: 06/03/17 09:52 Dose: 1 tab Nystatin (Nystop Powder -) 1 applic TP BID [facility] Last Admin: 06/03/17 21:16 Dose: 1 applic Olanzapine (Zyprexa -) 7.5 mg PO DAILY [facility] Last Admin: 06/03/17 09:52 Dose: 7.5 mg Ranitidine HCl (Zantac -) 150 mg PO BID [facility] Last Admin: 06/03/17 21:07 Dose: 150 mg Tamsulosin HCl (Flomax -) 0.4 mg PO DAILY@0830 [facility] Last Admin: 06/03/17 08:35 Dose: 0.4 mg Triamcinolone Acetonide (Aristocort 0.1% Lotion -) 1 applic TP BID [facility] Last Admin: 06/03/17 21:17 Dose: 1 applic Vancomycin HCl (Vancomycin Oral Solution) 125 mg PO Q6HPO [facility] Last Admin: 06/03/17 17:25 Dose: 125 mg - Objective Vital Signs: Vital Signs Temperature 98.0 F 06/04/17 00:00 Pulse Rate 69 06/04/17 00:00 Respiratory Rate 18 06/04/17 00:00 Blood Pressure 124/66 06/04/17 00:00 O2 Sat by Pulse Oximetry (%) 97 06/03/17 21:00 Elderly man with Dementia, oriented to self denies any complaints HEENT: Mm moist no anemia, NECK: No JVD No Bruit CHEST: CTA B/L CVs: S1S2 R ABD: No distention, non tender Bs + EXT: B/L LE erythema, No edema feet, no calf tenderness 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 05/31/17 18:00 Blood - Peripheral Venous Blood Culture - Preliminary NO GROWTH OBTAINED AFTER 72 HOURS, INCUBATION TO CONTINUE FOR 2 DAYS. 05/31/17 21:34 Urine - Urine - Catheterized Urine Culture - Final Pseudomonas Aeruginosa Problem List - Problems (1) UTI (urinary tract infection) Assessment/Plan: Urine Grew non fermenters GNB cont Zosyn Code(s): N39.0 - URINARY TRACT INFECTION, SITE NOT SPECIFIED Qualifiers: Urinary tract infection type: site unspecified Hematuria presence: without hematuria Qualified Code(s): N39.0 - Urinary tract infection, site not specified; N39.0 - Urinary tract infection, site not specified; R31.9 - Hematuria, unspecified; R31.9 - Hematuria, unspecified (2) HTN (hypertension) Assessment/Plan: Chronic cont curret management. Code(s): I10 - ESSENTIAL (PRIMARY) HYPERTENSION (3) CAD (coronary artery disease) Assessment/Plan: Stable no active issue Code(s): I25.10 - ATHSCL HEART DISEASE OF [place] CORONARY ARTERY W/O ANG PCTRS (4) Acute kidney injury Assessment/Plan: Due to dehydration now improving Code(s): N17.9 - ACUTE KIDNEY FAILURE, UNSPECIFIED (5) Schizo-affective schizophrenia, chronic condition Assessment/Plan: Chronic stable copnt home meds/. Code(s): F25.8 - OTHER SCHIZOAFFECTIVE DISORDERS
--- NOTE | 2017-06-04 00:34 | PN ---
Progress Note, Physician Chief Complaint: No new complaints , not in distress, oriented to self History of Present Illness: Elderly man with multiple co-morbidities present with sepsis grew Pseudominas in urine - Current Medication List Current Medications: Active Medications Acetaminophen (Tylenol -) 650 mg PO Q6HPO PRN PRN Reason: FEVER OR PAIN Albuterol/Ipratropium (Duoneb -) 1 amp NEB Q6H PRN Last Admin: 06/03/17 12:29 Dose: 1 amp Amlodipine Besylate (Norvasc -) 10 mg PO DAILY [facility] Last Admin: 06/03/17 09:52 Dose: 10 mg Ascorbic Acid (Vitamin C -) 500 mg PO BID [facility] Last Admin: 06/03/17 21:07 Dose: 500 mg Emollient Ointment (Lanolin Topical Ointment -) 1 applic TP BID [facility] Last Admin: 06/03/17 21:17 Dose: 1 applic Escitalopram Oxalate (Lexapro -) 20 mg PO DAILY [facility] Last Admin: 06/03/17 09:52 Dose: 20 mg Ferrous Sulfate (Feosol -) 325 mg PO BID [facility] Last Admin: 06/03/17 21:07 Dose: 325 mg Heparin Sodium (Porcine) (Heparin -) 5,000 unit SQ BID [facility] Last Admin: 06/03/17 21:07 Dose: 5,000 unit Piperacillin/Tazobactam/Dextrose (Zosyn 2.25gm Ivpb (Premix)) 50 mls @ 100 mls/ hr IVPB Q6H-IV CINTHYA PRN Reason: Protocol Last Admin: 06/03/17 20:40 Dose: 100 mls/hr Sodium Chloride (Normal Saline -) 1,000 mls @ 40 mls/hr IV ASDIR [facility] Last Admin: 06/03/17 20:41 Dose: Not Given Metoprolol Succinate (Toprol Xl -) 25 mg PO DAILY [facility] Last Admin: 06/03/17 09:52 Dose: 25 mg Multivitamins/Minerals/Vitamin C (Tab-A-Vit -) 1 tab PO DAILY [facility] Last Admin: 06/03/17 09:52 Dose: 1 tab Nystatin (Nystop Powder -) 1 applic TP BID [facility] Last Admin: 06/03/17 21:16 Dose: 1 applic Olanzapine (Zyprexa -) 7.5 mg PO DAILY [facility] Last Admin: 06/03/17 09:52 Dose: 7.5 mg Ranitidine HCl (Zantac -) 150 mg PO BID [facility] Last Admin: 06/03/17 21:07 Dose: 150 mg Tamsulosin HCl (Flomax -) 0.4 mg PO DAILY@0830 [facility] Last Admin: 06/03/17 08:35 Dose: 0.4 mg Triamcinolone Acetonide (Aristocort 0.1% Lotion -) 1 applic TP BID [facility] Last Admin: 06/03/17 21:17 Dose: 1 applic Vancomycin HCl (Vancomycin Oral Solution) 125 mg PO Q6HPO [facility] Last Admin: 06/03/17 17:25 Dose: 125 mg - Objective Vital Signs: Vital Signs Temperature 98.0 F 06/04/17 00:00 Pulse Rate 69 06/04/17 00:00 Respiratory Rate 18 06/04/17 00:00 Blood Pressure 124/66 06/04/17 00:00 O2 Sat by Pulse Oximetry (%) 97 06/03/17 21:00 Elderly man with Dementia, oriented to self denies any complaints HEENT: Mm moist no anemia, NECK: No JVD No Bruit CHEST: CTA B/L CVs: S1S2 R ABD: No distention, non tender Bs + EXT: B/L LE erythema, No edema feet, no calf tenderness 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 05/31/17 18:00 Blood - Peripheral Venous Blood Culture - Preliminary NO GROWTH OBTAINED AFTER 72 HOURS, INCUBATION TO CONTINUE FOR 2 DAYS. 05/31/17 21:34 Urine - Urine - Catheterized Urine Culture - Final Pseudomonas Aeruginosa Problem List - Problems (1) UTI (urinary tract infection) Assessment/Plan: Urine Grew non fermenters GNB cont Zosyn Code(s): N39.0 - URINARY TRACT INFECTION, SITE NOT SPECIFIED Qualifiers: Urinary tract infection type: site unspecified Hematuria presence: without hematuria Qualified Code(s): N39.0 - Urinary tract infection, site not specified; N39.0 - Urinary tract infection, site not specified; R31.9 - Hematuria, unspecified; R31.9 - Hematuria, unspecified (2) HTN (hypertension) Assessment/Plan: Chronic cont curret management. Code(s): I10 - ESSENTIAL (PRIMARY) HYPERTENSION (3) CAD (coronary artery disease) Assessment/Plan: Stable no active issue Code(s): I25.10 - ATHSCL HEART DISEASE OF [place] CORONARY ARTERY W/O ANG PCTRS (4) Acute kidney injury Assessment/Plan: Due to dehydration now improving Code(s): N17.9 - ACUTE KIDNEY FAILURE, UNSPECIFIED (5) Schizo-affective schizophrenia, chronic condition Assessment/Plan: Chronic stable copnt home meds/. Code(s): F25.8 - OTHER SCHIZOAFFECTIVE DISORDERS
--- NOTE | 2017-06-04 00:39 | PN ---
Progress Note, Physician Chief Complaint: No new complaints , not in distress, oriented to self History of Present Illness: Elderly man with multiple co-morbidities present with sepsis grew Pseudominas in urine - Current Medication List Current Medications: Active Medications Acetaminophen (Tylenol -) 650 mg PO Q6HPO PRN PRN Reason: FEVER OR PAIN Albuterol/Ipratropium (Duoneb -) 1 amp NEB Q6H PRN Last Admin: 06/03/17 12:29 Dose: 1 amp Amlodipine Besylate (Norvasc -) 10 mg PO DAILY [facility] Last Admin: 06/03/17 09:52 Dose: 10 mg Ascorbic Acid (Vitamin C -) 500 mg PO BID [facility] Last Admin: 06/03/17 21:07 Dose: 500 mg Emollient Ointment (Lanolin Topical Ointment -) 1 applic TP BID [facility] Last Admin: 06/03/17 21:17 Dose: 1 applic Escitalopram Oxalate (Lexapro -) 20 mg PO DAILY [facility] Last Admin: 06/03/17 09:52 Dose: 20 mg Ferrous Sulfate (Feosol -) 325 mg PO BID [facility] Last Admin: 06/03/17 21:07 Dose: 325 mg Heparin Sodium (Porcine) (Heparin -) 5,000 unit SQ BID [facility] Last Admin: 06/03/17 21:07 Dose: 5,000 unit Piperacillin/Tazobactam/Dextrose (Zosyn 2.25gm Ivpb (Premix)) 50 mls @ 100 mls/ hr IVPB Q6H-IV [facility]IN[facility] PRN Reason: Protocol Last Admin: 06/03/17 20:40 Dose: 100 mls/hr Sodium Chloride (Normal Saline -) 1,000 mls @ 40 mls/hr IV ASDIR [facility] Last Admin: 06/03/17 20:41 Dose: Not Given Metoprolol Succinate (Toprol Xl -) 25 mg PO DAILY [facility] Last Admin: 06/03/17 09:52 Dose: 25 mg Multivitamins/Minerals/Vitamin C (Tab-A-Vit -) 1 tab PO DAILY [facility] Last Admin: 06/03/17 09:52 Dose: 1 tab Nystatin (Nystop Powder -) 1 applic TP BID [facility] Last Admin: 06/03/17 21:16 Dose: 1 applic Olanzapine (Zyprexa -) 7.5 mg PO DAILY [facility] Last Admin: 06/03/17 09:52 Dose: 7.5 mg Ranitidine HCl (Zantac -) 150 mg PO BID [facility] Last Admin: 06/03/17 21:07 Dose: 150 mg Tamsulosin HCl (Flomax -) 0.4 mg PO DAILY@0830 [facility] Last Admin: 06/03/17 08:35 Dose: 0.4 mg Triamcinolone Acetonide (Aristocort 0.1% Lotion -) 1 applic TP BID [facility] Last Admin: 06/03/17 21:17 Dose: 1 applic Vancomycin HCl (Vancomycin Oral Solution) 125 mg PO Q6HPO [facility] Last Admin: 06/03/17 17:25 Dose: 125 mg - Objective Vital Signs: Vital Signs Temperature 98.0 F 06/04/17 00:00 Pulse Rate 69 06/04/17 00:00 Respiratory Rate 18 06/04/17 00:00 Blood Pressure 124/66 06/04/17 00:00 O2 Sat by Pulse Oximetry (%) 97 06/03/17 21:00 Elderly man with Dementia, oriented to self denies any complaints HEENT: Mm moist no anemia, NECK: No JVD No Bruit CHEST: CTA B/L CVs: S1S2 R ABD: No distention, non tender Bs + EXT: B/L LE erythema, No edema feet, no calf tenderness 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 05/31/17 18:00 Blood - Peripheral Venous Blood Culture - Preliminary NO GROWTH OBTAINED AFTER 72 HOURS, INCUBATION TO CONTINUE FOR 2 DAYS. 05/31/17 21:34 Urine - Urine - Catheterized Urine Culture - Final Pseudomonas Aeruginosa Problem List - Problems (1) UTI (urinary tract infection) Assessment/Plan: Urine Grew non fermenters GNB cont Zosyn Code(s): N39.0 - URINARY TRACT INFECTION, SITE NOT SPECIFIED Qualifiers: Urinary tract infection type: site unspecified Hematuria presence: without hematuria Qualified Code(s): N39.0 - Urinary tract infection, site not specified; N39.0 - Urinary tract infection, site not specified; R31.9 - Hematuria, unspecified; R31.9 - Hematuria, unspecified (2) HTN (hypertension) Assessment/Plan: Chronic cont curret management. Code(s): I10 - ESSENTIAL (PRIMARY) HYPERTENSION (3) CAD (coronary artery disease) Assessment/Plan: Stable no active issue Code(s): I25.10 - ATHSCL HEART DISEASE OF [place] CORONARY ARTERY W/O ANG PCTRS (4) Acute kidney injury Assessment/Plan: Due to dehydration now improving Code(s): N17.9 - ACUTE KIDNEY FAILURE, UNSPECIFIED (5) Schizo-affective schizophrenia, chronic condition Assessment/Plan: Chronic stable copnt home meds/. Code(s): F25.8 - OTHER SCHIZOAFFECTIVE DISORDERS
[2017-06-04] MEDS: SODIUM CHLORIDE 1,000 ML IV SCH (01:13)
[2017-06-04] MEDS: PIPERACILLIN/TAZOB 2.25 GM 50 ML IVPB SCH ×4 (02:57→21:38)
[2017-06-04] MEDS ORDERED: PT OWN MED DRAWER 7, Y5N ONE ×3 (05:14→16:54)
[2017-06-04 08:07] LABS: ALBUMIN 2.1 g/dl (3.4-5.0); ANION GAP 11 (8-16); CALCIUM 8.2 mg/dL (8.5-10.1); CO2 22 mmol/L (21-32); CREATININE 3.8 mg/dL (0.7-1.3); GLUCOSE,RANDOM 96 mg/dL (74-106); SGOT/AST 14 U/L (15-37); SGPT/ALT 22 U/L (12-78)
[2017-06-04 08:09] LABS: ALK PHOS 131 U/L (45-117); BILIRUBIN,TOTAL 0.6 mg/dL (0.2-1.0); TOT PROT 5.2 g/dl (6.4-8.2)
[2017-06-04] MEDS: amLODIPine BESYLATE 10 MG TABLET (FP) PO SCH (09:32)
[2017-06-04] MEDS: ESCITALOPRAM OXALATE 20 MG TABLET (FP) PO SCH (09:33)
[2017-06-04] MEDS: TAMSULOSIN HCL 0.4 MG CAP.ER.24H (FP) PO SCH (09:33)
[2017-06-04] MEDS: MULTIVITAMINS (DAILY MVI) TABLET (FP) PO SCH (09:33)
[2017-06-04] MEDS: RANITIDINE HCL 150 MG TABLET (FP) PO SCH ×2 (09:33→21:38)
[2017-06-04] MEDS: ASCORBIC ACID 500 MG TABLET (FP) PO SCH ×2 (09:33→21:38)
[2017-06-04] MEDS: FERROUS SO4 325 MG TABLET (FP) PO SCH ×2 (09:33→21:38)
[2017-06-04] MEDS: OLANZapine 2.5 MG TABLET PO SCH (09:34)
[2017-06-04] MEDS: METOPROLOL SUCCINATE 25 MG TAB.SR.24H (FP) PO SCH (09:35)
[2017-06-04] MEDS: HEPARIN NA (PORCINE) 5,000 UNITS/ML 1ML VIAL SQ SCH ×2 (09:36→21:39)
--- NOTE | 2017-06-04 11:13 | PN ---
Progress Note, Physician Chief Complaint: Mr Reynoso says he is doing well today and does not have complaints. Denies cp, sob, n/v. - Current Medication List Current Medications: Active Medications Acetaminophen (Tylenol -) 650 mg PO Q6HPO PRN PRN Reason: FEVER OR PAIN Albuterol/Ipratropium (Duoneb -) 1 amp NEB Q6H PRN Last Admin: 06/03/17 12:29 Dose: 1 amp Amlodipine Besylate (Norvasc -) 10 mg PO DAILY [facility] Last Admin: 06/04/17 09:32 Dose: 10 mg Ascorbic Acid (Vitamin C -) 500 mg PO BID [facility] Last Admin: 06/04/17 09:33 Dose: 500 mg Emollient Ointment (Lanolin Topical Ointment -) 1 applic TP BID [facility] Last Admin: 06/03/17 21:17 Dose: 1 applic Escitalopram Oxalate (Lexapro -) 20 mg PO DAILY [facility] Last Admin: 06/04/17 09:33 Dose: 20 mg Ferrous Sulfate (Feosol -) 325 mg PO BID [facility] Last Admin: 06/04/17 09:33 Dose: 325 mg Heparin Sodium (Porcine) (Heparin -) 5,000 unit SQ BID [facility] Last Admin: 06/04/17 09:36 Dose: 5,000 unit Piperacillin/Tazobactam/Dextrose (Zosyn 2.25gm Ivpb (Premix)) 50 mls @ 100 mls/ hr IVPB Q6H-IV CINTHYA PRN Reason: Protocol Last Admin: 06/04/17 09:35 Dose: 100 mls/hr Sodium Chloride (Normal Saline -) 1,000 mls @ 40 mls/hr IV ASDIR [facility] Last Admin: 06/04/17 01:13 Dose: 40 mls/hr Metoprolol Succinate (Toprol Xl -) 25 mg PO DAILY [facility] Last Admin: 06/04/17 09:35 Dose: 25 mg Multivitamins/Minerals/Vitamin C (Tab-A-Vit -) 1 tab PO DAILY [facility] Last Admin: 06/04/17 09:33 Dose: 1 tab Nystatin (Nystop Powder -) 1 applic TP BID [facility] Last Admin: 06/03/17 21:16 Dose: 1 applic Olanzapine (Zyprexa -) 7.5 mg PO DAILY [facility] Last Admin: 06/04/17 09:34 Dose: 7.5 mg Ranitidine HCl (Zantac -) 150 mg PO BID [facility] Last Admin: 06/04/17 09:33 Dose: 150 mg Tamsulosin HCl (Flomax -) 0.4 mg PO DAILY@0830 [facility] Last Admin: 06/04/17 09:33 Dose: 0.4 mg Triamcinolone Acetonide (Aristocort 0.1% Lotion -) 1 applic TP BID [facility] Last Admin: 06/03/17 21:17 Dose: 1 applic Vancomycin HCl (Vancomycin Oral Solution) 125 mg PO Q6HPO [facility] Last Admin: 06/04/17 05:46 Dose: 125 mg - Objective Vital Signs: Vital Signs Temperature 36.9 C 06/04/17 05:53 Pulse Rate 73 06/04/17 05:53 Respiratory Rate 18 06/04/17 05:53 Blood Pressure 153/82 06/04/17 05:53 O2 Sat by Pulse Oximetry (%) 97 06/03/17 21:00 Constitutional: Yes: Well Nourished, No Distress, Calm Cardiovascular: Yes: Regular Rate and Rhythm. No: Gallop, Murmur, Rub Respiratory: Yes: Regular, CTA Bilaterally. No: Rales, Rhonchi, Wheezes Gastrointestinal: Yes: Normal Bowel Sounds, Soft. No: Distention, Tenderness Extremities: Yes: Erythema (RLE, unchanged) Edema: No Labs: CBC, BMP 06/03/17 06:00 06/04/17 06:00 INR, PTT INR 1.07 (0.82-1.09) 05/31/17 18:00 Problem List - Problems (1) Sepsis Code(s): A41.9 - SEPSIS, UNSPECIFIED ORGANISM Qualifiers: Sepsis type: sepsis due to unspecified organism Qualified Code(s): A41.9 - Sepsis, unspecified organism; A41.9 - Sepsis, unspecified organism; A41.9 - Sepsis, unspecified organism (2) UTI (urinary tract infection) Code(s): N39.0 - URINARY TRACT INFECTION, SITE NOT SPECIFIED Qualifiers: Urinary tract infection type: site unspecified Hematuria presence: without hematuria Qualified Code(s): N39.0 - Urinary tract infection, site not specified; N39.0 - Urinary tract infection, site not specified; R31.9 - Hematuria, unspecified; R31.9 - Hematuria, unspecified (3) Acute on chronic renal failure Code(s): N17.9 - ACUTE KIDNEY FAILURE, UNSPECIFIED N18.9 - CHRONIC KIDNEY DISEASE, UNSPECIFIED (4) CAD (coronary artery disease) Code(s): I25.10 - ATHSCL HEART DISEASE OF [place] CORONARY ARTERY W/O ANG PCTRS (5) CHF (congestive heart failure) Code(s): I50.9 - HEART FAILURE, UNSPECIFIED Qualifiers: Congestive heart failure type: diastolic Congestive heart failure chronicity: chronic Qualified Code(s): I50.32 - Chronic diastolic ( congestive) heart failure; I50.32 - Chronic diastolic (congestive) heart failure ; I50.32 - Chronic diastolic (congestive) heart failure; I50.32 - Chronic diastolic (congestive) heart failure (6) Dementia Code(s): F03.90 - UNSPECIFIED DEMENTIA WITHOUT BEHAVIORAL DISTURBANCE (7) HTN (hypertension) Code(s): I10 - ESSENTIAL (PRIMARY) HYPERTENSION Assessment/Plan (1) Sepsis Assessment/Plan: -resolved -treat underlying UTI Code(s): A41.9 - SEPSIS, UNSPECIFIED ORGANISM Qualifiers: Sepsis type: sepsis due to unspecified organism Qualified Code(s): A41.9 - Sepsis, unspecified organism; A41.9 - Sepsis, unspecified organism; A41.9 - Sepsis, unspecified organism (2) UTI (urinary tract infection) Assessment/Plan: -urine growing pseudomonas -continue zosyn -ID following Code(s): N39.0 - URINARY TRACT INFECTION, SITE NOT SPECIFIED Qualifiers: Urinary tract infection type: site unspecified Hematuria presence: without hematuria Qualified Code(s): N39.0 - Urinary tract infection, site not specified; N39.0 - Urinary tract infection, site not specified; R31.9 - Hematuria, unspecified; R31.9 - Hematuria, unspecified (3) Acute on chronic renal failure Assessment/Plan: -slightly improved, but still with significant decrease in function -nephrology managing -continue IVF Code(s): N17.9 - ACUTE KIDNEY FAILURE, UNSPECIFIED N18.9 - CHRONIC KIDNEY DISEASE, UNSPECIFIED (4) CAD (coronary artery disease) Assessment/Plan: -stable -continue current regimen Code(s): I25.10 - ATHSCL HEART DISEASE OF [place] CORONARY ARTERY W/O ANG PCTRS (5) CHF (congestive heart failure) Assessment/Plan: -not in exacerbation -holding diuretics at this time Code(s): I50.9 - HEART FAILURE, UNSPECIFIED Qualifiers: Congestive heart failure type: diastolic Congestive heart failure chronicity: chronic Qualified Code(s): I50.32 - Chronic diastolic ( congestive) heart failure; I50.32 - Chronic diastolic (congestive) heart failure ; I50.32 - Chronic diastolic (congestive) heart failure; I50.32 - Chronic diastolic (congestive) heart failure (6) Dementia Assessment/Plan: -at baseline -continue current regimen Code(s): F03.90 - UNSPECIFIED DEMENTIA WITHOUT BEHAVIORAL DISTURBANCE (7) HTN (hypertension) Assessment/Plan: -well controlled Code(s): I10 - ESSENTIAL (PRIMARY) HYPERTENSION (8) C diff colitis -continue oral vancomycin
[2017-06-04] MEDS: LANOLIN (EMOLL) 30 GM TUBE TP SCH ×2 (12:38→21:39)
[2017-06-04] MEDS: TRIAMCINOLONE ACET 0.1% 60 ML LOTION TP SCH ×2 (12:39→21:39)
[2017-06-04] MEDS: NYSTATIN POWDER 100,000 UNITS/GM - 15 GM TOPICAL POWDER TP SCH ×2 (12:39→21:39)
--- NOTE | 2017-06-04 13:01 | PN ---
Progress Note, Physician Chief Complaint: The patient seen sitting on a chair. Seems comfortable. Much more awake and alert. No new problems identified. History of Present Illness: This is a 86 year old gentleman with PMhx of CKD Stage 4 (baseline Cr ~2.5), CHF with preserved LVEF, BPH, Hypertension, Hyperlipidemia who [place] with abd pain and found to have Sepsis secondary to UTI with hypothermia and acute renal failure. - Current Medication List Current Medications: Active Medications Acetaminophen (Tylenol -) 650 mg PO Q6HPO PRN PRN Reason: FEVER OR PAIN Albuterol/Ipratropium (Duoneb -) 1 amp NEB Q6H PRN Last Admin: 06/03/17 12:29 Dose: 1 amp Amlodipine Besylate (Norvasc -) 10 mg PO DAILY [facility] Last Admin: 06/04/17 09:32 Dose: 10 mg Ascorbic Acid (Vitamin C -) 500 mg PO BID [facility] Last Admin: 06/04/17 09:33 Dose: 500 mg Emollient Ointment (Lanolin Topical Ointment -) 1 applic TP BID [facility] Last Admin: 06/04/17 12:38 Dose: 1 applic Escitalopram Oxalate (Lexapro -) 20 mg PO DAILY [facility] Last Admin: 06/04/17 09:33 Dose: 20 mg Ferrous Sulfate (Feosol -) 325 mg PO BID [facility] Last Admin: 06/04/17 09:33 Dose: 325 mg Heparin Sodium (Porcine) (Heparin -) 5,000 unit SQ BID [facility] Last Admin: 06/04/17 09:36 Dose: 5,000 unit Piperacillin/Tazobactam/Dextrose (Zosyn 2.25gm Ivpb (Premix)) 50 mls @ 100 mls/ hr IVPB Q6H-IV CINTHYA PRN Reason: Protocol Last Admin: 06/04/17 09:35 Dose: 100 mls/hr Sodium Chloride (Normal Saline -) 1,000 mls @ 40 mls/hr IV ASDIR [facility] Last Admin: 06/04/17 01:13 Dose: 40 mls/hr Metoprolol Succinate (Toprol Xl -) 25 mg PO DAILY [facility] Last Admin: 06/04/17 09:35 Dose: 25 mg Multivitamins/Minerals/Vitamin C (Tab-A-Vit -) 1 tab PO DAILY [facility] Last Admin: 06/04/17 09:33 Dose: 1 tab Nystatin (Nystop Powder -) 1 applic TP BID [facility] Last Admin: 06/04/17 12:39 Dose: 1 applic Olanzapine (Zyprexa -) 7.5 mg PO DAILY [facility] Last Admin: 06/04/17 09:34 Dose: 7.5 mg Ranitidine HCl (Zantac -) 150 mg PO BID [facility] Last Admin: 06/04/17 09:33 Dose: 150 mg Tamsulosin HCl (Flomax -) 0.4 mg PO DAILY@0830 [facility] Last Admin: 06/04/17 09:33 Dose: 0.4 mg Triamcinolone Acetonide (Aristocort 0.1% Lotion -) 1 applic TP BID [facility] Last Admin: 06/04/17 12:39 Dose: 1 applic Vancomycin HCl (Vancomycin Oral Solution) 125 mg PO Q6HPO [facility] Last Admin: 06/04/17 12:36 Dose: 125 mg - Objective Vital Signs: Vital Signs Temperature 98.5 F 06/04/17 05:53 Pulse Rate 73 06/04/17 05:53 Respiratory Rate 18 06/04/17 05:53 Blood Pressure 153/82 06/04/17 05:53 O2 Sat by Pulse Oximetry (%) 97 06/03/17 21:00 Constitutional: Yes: No Distress, Other (confused) HENT: Yes: Atraumatic Neck: Yes: Trachea Midline Cardiovascular: Yes: S1, S2 Respiratory: Yes: Regular, Diminished Gastrointestinal: Yes: Normal Bowel Sounds, Soft Genitourinary: No: CVA Tenderness - Left, CVA Tenderness - Right Neurological: Yes: Confusion Labs: CBC, BMP 06/03/17 06:00 06/04/17 06:00 INR, PTT INR 1.07 (0.82-1.09) 05/31/17 18:00 Problem List - Problems (1) Acute kidney injury Code(s): N17.9 - ACUTE KIDNEY FAILURE, UNSPECIFIED (2) Acute on chronic renal failure Code(s): N17.9 - ACUTE KIDNEY FAILURE, UNSPECIFIED N18.9 - CHRONIC KIDNEY DISEASE, UNSPECIFIED (3) Anemia Code(s): D64.9 - ANEMIA, UNSPECIFIED Qualifiers: 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 Code(s): D50.0 - Iron deficiency anemia secondary to blood loss (chronic); D50.0 - Iron deficiency anemia secondary to blood loss (chronic) (4) Dementia Code(s): F03.90 - UNSPECIFIED DEMENTIA WITHOUT BEHAVIORAL DISTURBANCE (5) HTN (hypertension) Code(s): I10 - ESSENTIAL (PRIMARY) HYPERTENSION (6) Urinary retention Code(s): R33.9 - RETENTION OF URINE, UNSPECIFIED Assessment/Plan This is a 86 year old gentleman with PMhx of CKD Stage 4 (baseline Cr ~2.5), CHF with preserved LVEF, BPH, Hypertension, Hyperlipidemia who presented [place] with Abd pain and found to have Sepsis secondary to UTI with hypothermia Acute Renal failure superimposed on CKD4. The Renal functions are slowly improving. Will stop IV fluids. Oral intake reportedly improved. Hgb/ Hct stable. Mild Hypernatremia. Will observe after IV fluids are discontinued. Will monitor the Renal functions. Thank you. Will follow with you. Mary Mirza MD
[2017-06-04 13:04] LABS: BASOPHIL 1.2 % (0-2.0); EOSINOPHIL 1.6 % (0-4.5); MCH 29.4 pg (25.7-33.7); MCHC 33.5 g/dl (32.0-35.9); MEAN CELL VOLUME 87.9 fl (80-96); MEAN PLT VOLUME 7.3 fl (7.5-11.1); NEUTROPHILS 85.2 % (42.8-82.8); PLATELET COUNT 362 K/MM3 (134-434); RDW 15.4 % (11.9-15.9); WHITE BLOOD COUNT 10.7 K/mm3 (4.0-10.0)
--- NOTE | 2017-06-04 13:43 | PN ---
Progress Note, Physician History of Present Illness: patient much more awake and alert sitting outside in the chair ext looking good - Current Medication List Current Medications: Active Medications Acetaminophen (Tylenol -) 650 mg PO Q6HPO PRN PRN Reason: FEVER OR PAIN Albuterol/Ipratropium (Duoneb -) 1 amp NEB Q6H PRN Last Admin: 06/03/17 12:29 Dose: 1 amp Amlodipine Besylate (Norvasc -) 10 mg PO DAILY [facility] Last Admin: 06/04/17 09:32 Dose: 10 mg Ascorbic Acid (Vitamin C -) 500 mg PO BID [facility] Last Admin: 06/04/17 09:33 Dose: 500 mg Emollient Ointment (Lanolin Topical Ointment -) 1 applic TP BID [facility] Last Admin: 06/04/17 12:38 Dose: 1 applic Escitalopram Oxalate (Lexapro -) 20 mg PO DAILY [facility] [place] Last Admin: 06/04/17 09:33 Dose: 20 mg Ferrous Sulfate (Feosol -) 325 mg PO BID [facility] [place] Last Admin: 06/04/17 09:33 Dose: 325 mg Heparin Sodium (Porcine) (Heparin -) 5,000 unit SQ BID [facility] [place] Last Admin: 06/04/17 09:36 Dose: 5,000 unit Piperacillin/Tazobactam/Dextrose (Zosyn 2.25gm Ivpb (Premix)) 50 mls @ 100 mls/ hr IVPB Q6H-IV CINTHYA PRN Reason: Protocol Last Admin: 06/04/17 09:35 Dose: 100 mls/hr Metoprolol Succinate (Toprol Xl -) 25 mg PO DAILY [facility] [place] Last Admin: 06/04/17 09:35 Dose: 25 mg Multivitamins/Minerals/Vitamin C (Tab-A-Vit -) 1 tab PO DAILY [facility] [place] Last Admin: 06/04/17 09:33 Dose: 1 tab Nystatin (Nystop Powder -) 1 applic TP BID [facility] [place] Last Admin: 06/04/17 12:39 Dose: 1 applic Olanzapine (Zyprexa -) 7.5 mg PO DAILY [facility] [place] Last Admin: 06/04/17 09:34 Dose: 7.5 mg Ranitidine HCl (Zantac -) 150 mg PO BID [facility] [place] Last Admin: 06/04/17 09:33 Dose: 150 mg Tamsulosin HCl (Flomax -) 0.4 mg PO DAILY@0830 [facility] [place] Last Admin: 06/04/17 09:33 Dose: 0.4 mg Triamcinolone Acetonide (Aristocort 0.1% Lotion -) 1 applic TP BID [facility] Last Admin: 06/04/17 12:39 Dose: 1 applic Vancomycin HCl (Vancomycin Oral Solution) 125 mg PO Q6HPO [facility] [place] Last Admin: 06/04/17 12:36 Dose: 125 mg - Objective Vital Signs: Vital Signs Temperature 98.5 F 06/04/17 05:53 Pulse Rate 73 06/04/17 05:53 Respiratory Rate 18 06/04/17 05:53 Blood Pressure 153/82 06/04/17 05:53 O2 Sat by Pulse Oximetry (%) 97 06/03/17 21:00 Constitutional: Yes: No Distress, Calm Cardiovascular: Yes: Regular Rate and Rhythm Respiratory: Yes: Regular Gastrointestinal: Yes: Normal Bowel Sounds, Soft Musculoskeletal: Yes: Other Extremities: Yes: Erythema Neurological: Yes: Alert Psychiatric: Yes: Alert Labs: CBC, BMP 06/04/17 12:50 06/04/17 06:00 INR, PTT INR 1.07 (0.82-1.09) 05/31/17 18:00 Assessment/Plan Problem List - Problems (1) Sepsis Code(s): A41.9 - SEPSIS, UNSPECIFIED ORGANISM Qualifiers: Sepsis type: sepsis due to unspecified organism Qualified Code(s): A41.9 - Sepsis, unspecified organism; A41.9 - Sepsis, unspecified organism; A41.9 - Sepsis, unspecified organism (2) UTI (urinary tract infection) Code(s): N39.0 - URINARY TRACT INFECTION, SITE NOT SPECIFIED Qualifiers: Urinary tract infection type: site unspecified Hematuria presence: without hematuria Qualified Code(s): N39.0 - Urinary tract infection, site not specified; N39.0 - Urinary tract infection, site not specified; R31.9 - Hematuria, unspecified; R31.9 - Hematuria, unspecified (3) Acute on chronic renal failure Code(s): N17.9 - ACUTE KIDNEY FAILURE, UNSPECIFIED N18.9 - CHRONIC KIDNEY DISEASE, UNSPECIFIED (4) CAD (coronary artery disease) Code(s): I25.10 - ATHSCL HEART DISEASE OF [place] CORONARY ARTERY W/O ANG PCTRS (5) CHF (congestive heart failure) Code(s): I50.9 - HEART FAILURE, UNSPECIFIED Qualifiers: Congestive heart failure type: diastolic Congestive heart failure chronicity: chronic Qualified Code(s): I50.32 - Chronic diastolic ( congestive) heart failure; I50.32 - Chronic diastolic (congestive) heart failure ; I50.32 - Chronic diastolic (congestive) heart failure; I50.32 - Chronic diastolic (congestive) heart failure (6) Dementia Code(s): F03.90 - UNSPECIFIED DEMENTIA WITHOUT BEHAVIORAL DISTURBANCE (7) HTN (hypertension) Code(s): I10 - ESSENTIAL (PRIMARY) HYPERTENSION patient well known to me from last admission coming in with sepsis and hypothermia plan continue oral vanco continue abx physio as neeeded nutrition
[2017-06-05] MEDS: PIPERACILLIN/TAZOB 2.25 GM 50 ML IVPB SCH ×4 (02:17→21:23)
[2017-06-05] MEDS: VANCOMYCIN 250 MG/5 ML ORAL SOLUTION PO SCH ×4 (06:15→18:25)
[2017-06-05 07:48] LABS: BASOPHIL 0.5 % (0-2.0); EOSINOPHIL 3.9 % (0-4.5); MCH 29.2 pg (25.7-33.7); MCHC 33.2 g/dl (32.0-35.9); MEAN PLT VOLUME 7.4 fl (7.5-11.1); NEUTROPHILS 82.6 % (42.8-82.8); PLATELET COUNT 322 K/MM3 (134-434); RDW 15.5 % (11.9-15.9); WHITE BLOOD COUNT 8.5 K/mm3 (4.0-10.0)
--- NOTE | 2017-06-05 08:01 | EKG ---
Test Reason : Blood Pressure : / mmHG Vent. Rate : 063 BPM Atrial Rate : 063 BPM P-R Int : 152 ms QRS Dur : 106 ms QT Int : 446 ms P-R-T Axes : 013 -49 014 degrees QTc Int : 456 ms NORMAL SINUS RHYTHM LEFT ANTERIOR FASCICULAR BLOCK ABNORMAL ECG WHEN COMPARED WITH ECG OF 05-MAY-2017 17:00, LEFT ANTERIOR FASCICULAR BLOCK IS NOW PRESENT Confirmed by MICHAEL COULTER MD ([id number]) on 06/01/2017 9:47:51 AM Also confirmed by MICHAEL COULTER MD ([id number]), editorial writer VANDANA RANKIN ([id number]) on 06/05/2017 8:01:05 AM Referred By: Confirmed By:MICHAEL COULTER MD
[2017-06-05 08:08] LABS: ANION GAP 14 (8-16); CALCIUM 8.6 mg/dL (8.5-10.1); CO2 20 mmol/L (21-32); GLUCOSE,RANDOM 83 mg/dL (74-106)
[2017-06-05 08:10] LABS: CREATININE 3.5 mg/dL (0.7-1.3); PHOSPHOROUS 3.9 mg/dL (2.5-4.9)
[2017-06-05] MEDS: TAMSULOSIN HCL 0.4 MG CAP.ER.24H (FP) PO SCH (08:47)
[2017-06-05] MEDS: NYSTATIN POWDER 100,000 UNITS/GM - 15 GM TOPICAL POWDER TP SCH ×2 (10:43→22:16)
[2017-06-05] MEDS: LANOLIN (EMOLL) 30 GM TUBE TP SCH ×2 (10:44→22:16)
[2017-06-05] MEDS: MULTIVITAMINS (DAILY MVI) TABLET (FP) PO SCH (10:44)
[2017-06-05] MEDS: amLODIPine BESYLATE 10 MG TABLET (FP) PO SCH (10:45)
[2017-06-05] MEDS: RANITIDINE HCL 150 MG TABLET (FP) PO SCH ×2 (10:45→22:15)
[2017-06-05] MEDS: FERROUS SO4 325 MG TABLET (FP) PO SCH ×2 (10:45→22:15)
[2017-06-05] MEDS: OLANZapine 2.5 MG TABLET PO SCH (10:46)
[2017-06-05] MEDS: ASCORBIC ACID 500 MG TABLET (FP) PO SCH ×2 (10:46→22:15)
[2017-06-05] MEDS: TRIAMCINOLONE ACET 0.1% 60 ML LOTION TP SCH ×2 (10:47→22:15)
[2017-06-05] MEDS: METOPROLOL SUCCINATE 25 MG TAB.SR.24H (FP) PO SCH (10:47)
[2017-06-05] MEDS: HEPARIN NA (PORCINE) 5,000 UNITS/ML 1ML VIAL SQ SCH ×2 (10:47→22:15)
[2017-06-05] MEDS: ESCITALOPRAM OXALATE 20 MG TABLET (FP) PO SCH (10:47)
--- NOTE | 2017-06-05 11:47 | PN ---
Progress Note, Physician Chief Complaint: The patient seen sitting on a chair. In no distress. Seay catheter draining large amount of urine. Oral intake suboptimal. - Current Medication List Current Medications: Active Medications Acetaminophen (Tylenol -) 650 mg PO Q6HPO PRN PRN Reason: FEVER OR PAIN Albuterol/Ipratropium (Duoneb -) 1 amp NEB Q6H PRN Last Admin: 06/03/17 12:29 Dose: 1 amp Amlodipine Besylate (Norvasc -) 10 mg PO DAILY [facility] Last Admin: 06/05/17 10:45 Dose: 10 mg Ascorbic Acid (Vitamin C -) 500 mg PO BID [facility] Last Admin: 06/05/17 10:46 Dose: 500 mg Emollient Ointment (Lanolin Topical Ointment -) 1 applic TP BID [facility] Last Admin: 06/05/17 10:44 Dose: 1 applic Escitalopram Oxalate (Lexapro -) 20 mg PO DAILY [facility] Last Admin: 06/05/17 10:47 Dose: 20 mg Ferrous Sulfate (Feosol -) 325 mg PO BID [facility] Last Admin: 06/05/17 10:45 Dose: 325 mg Heparin Sodium (Porcine) (Heparin -) 5,000 unit SQ BID [facility] Last Admin: 06/05/17 10:47 Dose: 5,000 unit Piperacillin/Tazobactam/Dextrose (Zosyn 2.25gm Ivpb (Premix)) 50 mls @ 100 mls/ hr IVPB Q6H-IV CINTHYA PRN Reason: Protocol Last Admin: 06/05/17 10:47 Dose: 100 mls/hr Metoprolol Succinate (Toprol Xl -) 25 mg PO DAILY [facility] Last Admin: 06/05/17 10:47 Dose: 25 mg Multivitamins/Minerals/Vitamin C (Tab-A-Vit -) 1 tab PO DAILY [facility] Last Admin: 06/05/17 10:44 Dose: 1 tab Nystatin (Nystop Powder -) 1 applic TP BID [facility] Last Admin: 06/05/17 10:43 Dose: 1 applic Olanzapine (Zyprexa -) 7.5 mg PO DAILY [facility] Last Admin: 06/05/17 10:46 Dose: 7.5 mg Ranitidine HCl (Zantac -) 150 mg PO BID [facility] Last Admin: 06/05/17 10:45 Dose: 150 mg Tamsulosin HCl (Flomax -) 0.4 mg PO DAILY@0830 [facility] Last Admin: 06/05/17 08:47 Dose: 0.4 mg Triamcinolone Acetonide (Aristocort 0.1% Lotion -) 1 applic TP BID [facility] Last Admin: 06/05/17 10:47 Dose: 1 applic Vancomycin HCl (Vancomycin Oral Solution) 125 mg PO Q6HPO [facility] Last Admin: 06/05/17 06:15 Dose: 125 mg - Objective Vital Signs: Vital Signs Temperature 98.5 F 06/05/17 06:00 Pulse Rate 80 06/05/17 06:00 Respiratory Rate 20 06/05/17 06:00 Blood Pressure 155/75 06/05/17 06:00 O2 Sat by Pulse Oximetry (%) 97 06/04/17 09:00 Constitutional: Yes: No Distress Eyes: Yes: Conjunctiva Clear Neck: Yes: Supple Cardiovascular: Yes: S1, S2 Respiratory: Yes: Regular, Diminished Gastrointestinal: Yes: Normal Bowel Sounds Genitourinary: Yes: Seay Present Labs: CBC, BMP 06/05/17 07:25 06/05/17 07:25 INR, PTT INR 1.07 (0.82-1.09) 05/31/17 18:00 Problem List - Problems (1) Acute kidney injury Code(s): N17.9 - ACUTE KIDNEY FAILURE, UNSPECIFIED (2) Acute on chronic renal failure Code(s): N17.9 - ACUTE KIDNEY FAILURE, UNSPECIFIED N18.9 - CHRONIC KIDNEY DISEASE, UNSPECIFIED (3) Anemia Code(s): D64.9 - ANEMIA, UNSPECIFIED Qualifiers: 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 Code(s): D50.0 - Iron deficiency anemia secondary to blood loss (chronic); D50.0 - Iron deficiency anemia secondary to blood loss (chronic) (4) Dementia Code(s): F03.90 - UNSPECIFIED DEMENTIA WITHOUT BEHAVIORAL DISTURBANCE (5) HTN (hypertension) Code(s): I10 - ESSENTIAL (PRIMARY) HYPERTENSION (6) Urinary retention Code(s): R33.9 - RETENTION OF URINE, UNSPECIFIED Assessment/Plan This is a 86 year old gentleman with PMhx of CKD Stage 4 (baseline Cr ~2.5), CHF with preserved LVEF, BPH, Hypertension, Hyperlipidemia who presented [place] with Abd pain and found to have Sepsis secondary to UTI with hypothermia Acute Renal failure superimposed on CKD4. The Renal functions are slowly improving. Will stop IV fluids. Tendency for Hypernatremia, may reflect free water depletion. Will encourage oral fluids. Discussed with the nurses Will monitor the Renal functions. Thank you. Will follow with you. Mary Mirza MD
--- NOTE | 2017-06-05 14:45 | PN ---
Progress Note, Physician History of Present Illness: stable no new issues - Current Medication List Current Medications: Active Medications Acetaminophen (Tylenol -) 650 mg PO Q6HPO PRN PRN Reason: FEVER OR PAIN Albuterol/Ipratropium (Duoneb -) 1 amp NEB Q6H PRN Last Admin: 06/03/17 12:29 Dose: 1 amp Amlodipine Besylate (Norvasc -) 10 mg PO DAILY [facility] Last Admin: 06/05/17 10:45 Dose: 10 mg Ascorbic Acid (Vitamin C -) 500 mg PO BID [facility] Last Admin: 06/05/17 10:46 Dose: 500 mg Emollient Ointment (Lanolin Topical Ointment -) 1 applic TP BID [facility] Last Admin: 06/05/17 10:44 Dose: 1 applic Escitalopram Oxalate (Lexapro -) 20 mg PO DAILY [facility] Last Admin: 06/05/17 10:47 Dose: 20 mg Ferrous Sulfate (Feosol -) 325 mg PO BID [facility] Last Admin: 06/05/17 10:45 Dose: 325 mg Heparin Sodium (Porcine) (Heparin -) 5,000 unit SQ BID [facility] Last Admin: 06/05/17 10:47 Dose: 5,000 unit Piperacillin/Tazobactam/Dextrose (Zosyn 2.25gm Ivpb (Premix)) 50 mls @ 100 mls/ hr IVPB Q6H-IV CINTHYA PRN Reason: Protocol Last Admin: 06/05/17 10:47 Dose: 100 mls/hr Metoprolol Succinate (Toprol Xl -) 25 mg PO DAILY [facility] Last Admin: 06/05/17 10:47 Dose: 25 mg Multivitamins/Minerals/Vitamin C (Tab-A-Vit -) 1 tab PO DAILY [facility] Last Admin: 06/05/17 10:44 Dose: 1 tab Nystatin (Nystop Powder -) 1 applic TP BID [facility] Last Admin: 06/05/17 10:43 Dose: 1 applic Olanzapine (Zyprexa -) 7.5 mg PO DAILY [facility] Last Admin: 06/05/17 10:46 Dose: 7.5 mg Ranitidine HCl (Zantac -) 150 mg PO BID [facility] Last Admin: 06/05/17 10:45 Dose: 150 mg Tamsulosin HCl (Flomax -) 0.4 mg PO DAILY@0830 [facility] Last Admin: 06/05/17 08:47 Dose: 0.4 mg Triamcinolone Acetonide (Aristocort 0.1% Lotion -) 1 applic TP BID [facility] Last Admin: 06/05/17 10:47 Dose: 1 applic Vancomycin HCl (Vancomycin Oral Solution) 125 mg PO Q6HPO [facility] Last Admin: 06/05/17 12:34 Dose: 125 mg - Objective Vital Signs: Vital Signs Temperature 98.5 F 06/05/17 06:00 Pulse Rate 80 06/05/17 06:00 Respiratory Rate 18 06/05/17 09:00 Blood Pressure 155/75 06/05/17 06:00 O2 Sat by Pulse Oximetry (%) 92 L 06/05/17 09:00 Constitutional: Yes: No Distress, Calm Cardiovascular: Yes: Regular Rate and Rhythm Respiratory: Yes: Regular, CTA Bilaterally Gastrointestinal: Yes: Normal Bowel Sounds, Soft Musculoskeletal: Yes: WNL Extremities: Yes: WNL Integumentary: Yes: Erythema (resolved) Neurological: Yes: Alert, Oriented Psychiatric: Yes: Alert, Oriented Labs: CBC, BMP 06/05/17 07:25 06/05/17 07:25 INR, PTT INR 1.07 (0.82-1.09) 05/31/17 18:00 Assessment/Plan Problem List - Problems (1) Sepsis Code(s): A41.9 - SEPSIS, UNSPECIFIED ORGANISM Qualifiers: Sepsis type: sepsis due to unspecified organism Qualified Code(s): A41.9 - Sepsis, unspecified organism; A41.9 - Sepsis, unspecified organism; A41.9 - Sepsis, unspecified organism (2) UTI (urinary tract infection) Code(s): N39.0 - URINARY TRACT INFECTION, SITE NOT SPECIFIED Qualifiers: Urinary tract infection type: site unspecified Hematuria presence: without hematuria Qualified Code(s): N39.0 - Urinary tract infection, site not specified; N39.0 - Urinary tract infection, site not specified; R31.9 - Hematuria, unspecified; R31.9 - Hematuria, unspecified (3) Acute on chronic renal failure Code(s): N17.9 - ACUTE KIDNEY FAILURE, UNSPECIFIED N18.9 - CHRONIC KIDNEY DISEASE, UNSPECIFIED (4) CAD (coronary artery disease) Code(s): I25.10 - ATHSCL HEART DISEASE OF [place] CORONARY ARTERY W/O ANG PCTRS (5) CHF (congestive heart failure) Code(s): I50.9 - HEART FAILURE, UNSPECIFIED Qualifiers: Congestive heart failure type: diastolic Congestive heart failure chronicity: chronic Qualified Code(s): I50.32 - Chronic diastolic ( congestive) heart failure; I50.32 - Chronic diastolic (congestive) heart failure ; I50.32 - Chronic diastolic (congestive) heart failure; I50.32 - Chronic diastolic (congestive) heart failure (6) Dementia Code(s): F03.90 - UNSPECIFIED DEMENTIA WITHOUT BEHAVIORAL DISTURBANCE (7) HTN (hypertension) Code(s): I10 - ESSENTIAL (PRIMARY) HYPERTENSION patient well known to me from last admission coming in with sepsis and hypothermia plan continue oral vanco continue abx physio as neeeded nutrition nephro note noted
--- NOTE | 2017-06-05 15:04 | PN ---
Progress Note, Physician Chief Complaint: Mr Reynoso says he is upset because he does not know why he is in the hospital. Says he feels fine. - Current Medication List Current Medications: Active Medications Acetaminophen (Tylenol -) 650 mg PO Q6HPO PRN PRN Reason: FEVER OR PAIN Albuterol/Ipratropium (Duoneb -) 1 amp NEB Q6H PRN Last Admin: 06/03/17 12:29 Dose: 1 amp Amlodipine Besylate (Norvasc -) 10 mg PO DAILY [facility] Last Admin: 06/05/17 10:45 Dose: 10 mg Ascorbic Acid (Vitamin C -) 500 mg PO BID [facility] Last Admin: 06/05/17 10:46 Dose: 500 mg Emollient Ointment (Lanolin Topical Ointment -) 1 applic TP BID [facility] Last Admin: 06/05/17 10:44 Dose: 1 applic Escitalopram Oxalate (Lexapro -) 20 mg PO DAILY [facility] Last Admin: 06/05/17 10:47 Dose: 20 mg Ferrous Sulfate (Feosol -) 325 mg PO BID [facility] Last Admin: 06/05/17 10:45 Dose: 325 mg Heparin Sodium (Porcine) (Heparin -) 5,000 unit SQ BID [facility] Last Admin: 06/05/17 10:47 Dose: 5,000 unit Piperacillin/Tazobactam/Dextrose (Zosyn 2.25gm Ivpb (Premix)) 50 mls @ 100 mls/ hr IVPB Q6H-IV CINTHYA PRN Reason: Protocol Last Admin: 06/05/17 15:02 Dose: 100 mls/hr Metoprolol Succinate (Toprol Xl -) 25 mg PO DAILY [facility] Last Admin: 06/05/17 10:47 Dose: 25 mg Multivitamins/Minerals/Vitamin C (Tab-A-Vit -) 1 tab PO DAILY [facility] Last Admin: 06/05/17 10:44 Dose: 1 tab Nystatin (Nystop Powder -) 1 applic TP BID [facility] Last Admin: 06/05/17 10:43 Dose: 1 applic Olanzapine (Zyprexa -) 7.5 mg PO DAILY [facility] Last Admin: 06/05/17 10:46 Dose: 7.5 mg Ranitidine HCl (Zantac -) 150 mg PO BID [facility] Last Admin: 06/05/17 10:45 Dose: 150 mg Tamsulosin HCl (Flomax -) 0.4 mg PO DAILY@0830 [facility] Last Admin: 06/05/17 08:47 Dose: 0.4 mg Triamcinolone Acetonide (Aristocort 0.1% Lotion -) 1 applic TP BID [facility] Last Admin: 06/05/17 10:47 Dose: 1 applic Vancomycin HCl (Vancomycin Oral Solution) 125 mg PO Q6HPO [facility] Last Admin: 06/05/17 12:34 Dose: 125 mg - Objective Vital Signs: Vital Signs Temperature 36.3 C L 06/05/17 14:00 Pulse Rate 78 06/05/17 14:00 Respiratory Rate 20 06/05/17 14:00 Blood Pressure 137/83 06/05/17 14:00 O2 Sat by Pulse Oximetry (%) 92 L 06/05/17 09:00 Constitutional: Yes: Well Nourished, No Distress, Calm Cardiovascular: Yes: Regular Rate and Rhythm. No: Gallop, Murmur, Rub Respiratory: Yes: Regular, CTA Bilaterally. No: Rales, Rhonchi, Wheezes Gastrointestinal: Yes: Normal Bowel Sounds, Soft. No: Distention, Tenderness Extremities: Yes: Erythema Edema: No Labs: CBC, BMP 06/05/17 07:25 06/05/17 07:25 INR, PTT INR 1.07 (0.82-1.09) 05/31/17 18:00 Problem List - Problems (1) Sepsis Code(s): A41.9 - SEPSIS, UNSPECIFIED ORGANISM Qualifiers: Sepsis type: sepsis due to unspecified organism Qualified Code(s): A41.9 - Sepsis, unspecified organism; A41.9 - Sepsis, unspecified organism; A41.9 - Sepsis, unspecified organism (2) UTI (urinary tract infection) Code(s): N39.0 - URINARY TRACT INFECTION, SITE NOT SPECIFIED Qualifiers: Urinary tract infection type: site unspecified Hematuria presence: without hematuria Qualified Code(s): N39.0 - Urinary tract infection, site not specified; N39.0 - Urinary tract infection, site not specified; R31.9 - Hematuria, unspecified; R31.9 - Hematuria, unspecified (3) Acute on chronic renal failure Code(s): N17.9 - ACUTE KIDNEY FAILURE, UNSPECIFIED N18.9 - CHRONIC KIDNEY DISEASE, UNSPECIFIED (4) CAD (coronary artery disease) Code(s): I25.10 - ATHSCL HEART DISEASE OF [place] CORONARY ARTERY W/O ANG PCTRS (5) CHF (congestive heart failure) Code(s): I50.9 - HEART FAILURE, UNSPECIFIED Qualifiers: Congestive heart failure type: diastolic Congestive heart failure chronicity: chronic Qualified Code(s): I50.32 - Chronic diastolic ( congestive) heart failure; I50.32 - Chronic diastolic (congestive) heart failure ; I50.32 - Chronic diastolic (congestive) heart failure; I50.32 - Chronic diastolic (congestive) heart failure (6) Dementia Code(s): F03.90 - UNSPECIFIED DEMENTIA WITHOUT BEHAVIORAL DISTURBANCE (7) HTN (hypertension) Code(s): I10 - ESSENTIAL (PRIMARY) HYPERTENSION Assessment/Plan (1) Sepsis Assessment/Plan: -resolved -treat underlying UTI Code(s): A41.9 - SEPSIS, UNSPECIFIED ORGANISM Qualifiers: Sepsis type: sepsis due to unspecified organism Qualified Code(s): A41.9 - Sepsis, unspecified organism; A41.9 - Sepsis, unspecified organism; A41.9 - Sepsis, unspecified organism (2) UTI (urinary tract infection) Assessment/Plan: -urine growing pseudomonas -continue zosyn -ID following Code(s): N39.0 - URINARY TRACT INFECTION, SITE NOT SPECIFIED Qualifiers: Urinary tract infection type: site unspecified Hematuria presence: without hematuria Qualified Code(s): N39.0 - Urinary tract infection, site not specified; N39.0 - Urinary tract infection, site not specified; R31.9 - Hematuria, unspecified; R31.9 - Hematuria, unspecified (3) Acute on chronic renal failure Assessment/Plan: -continues to improve -appreciate nephrology assistance Code(s): N17.9 - ACUTE KIDNEY FAILURE, UNSPECIFIED N18.9 - CHRONIC KIDNEY DISEASE, UNSPECIFIED (4) CAD (coronary artery disease) Assessment/Plan: -stable -continue current regimen Code(s): I25.10 - ATHSCL HEART DISEASE OF [place] CORONARY ARTERY W/O ANG PCTRS (5) CHF (congestive heart failure) Assessment/Plan: -not in exacerbation -holding diuretics at this time Code(s): I50.9 - HEART FAILURE, UNSPECIFIED Qualifiers: Congestive heart failure type: diastolic Congestive heart failure chronicity: chronic Qualified Code(s): I50.32 - Chronic diastolic ( congestive) heart failure; I50.32 - Chronic diastolic (congestive) heart failure ; I50.32 - Chronic diastolic (congestive) heart failure; I50.32 - Chronic diastolic (congestive) heart failure (6) Dementia Assessment/Plan: -at baseline -continue current regimen Code(s): F03.90 - UNSPECIFIED DEMENTIA WITHOUT BEHAVIORAL DISTURBANCE (7) HTN (hypertension) Assessment/Plan: -well controlled Code(s): I10 - ESSENTIAL (PRIMARY) HYPERTENSION (8) C diff colitis -continue oral vancomycin
[2017-06-06] MEDS: PIPERACILLIN/TAZOB 2.25 GM 50 ML IVPB SCH ×4 (02:39→20:27)
[2017-06-06] MEDS: VANCOMYCIN 250 MG/5 ML ORAL SOLUTION PO SCH ×4 (06:35→17:43)
[2017-06-06 08:05] LABS: BASOPHIL 1.2 % (0-2.0); EOSINOPHIL 5.9 % (0-4.5); MCH 29.3 pg (25.7-33.7); MCHC 33.4 g/dl (32.0-35.9); MEAN CELL VOLUME 87.8 fl (80-96); MEAN PLT VOLUME 7.3 fl (7.5-11.1); PLATELET COUNT 279 K/MM3 (134-434); RDW 15.6 % (11.9-15.9); WHITE BLOOD COUNT 7.1 K/mm3 (4.0-10.0)
[2017-06-06 08:14] LABS: ALBUMIN 1.9 g/dl (3.4-5.0); ANION GAP 8 (8-16); BILIRUBIN,TOTAL 0.3 mg/dL (0.2-1.0); CALCIUM 7.9 mg/dL (8.5-10.1); CO2 25 mmol/L (21-32); CREATININE 3.5 mg/dL (0.7-1.3); GLUCOSE,RANDOM 88 mg/dL (74-106); MAGNESIUM 1.9 mg/dL (1.8-2.4); SGOT/AST 7 U/L (15-37); SGPT/ALT 18 U/L (12-78)
[2017-06-06 08:15] LABS: ALK PHOS 101 U/L (45-117); TOT PROT 4.9 g/dl (6.4-8.2)
[2017-06-06] MEDS: ESCITALOPRAM OXALATE 20 MG TABLET (FP) PO SCH (09:34)
[2017-06-06] MEDS: HEPARIN NA (PORCINE) 5,000 UNITS/ML 1ML VIAL SQ SCH ×2 (09:34→22:05)
[2017-06-06] MEDS: ASCORBIC ACID 500 MG TABLET (FP) PO SCH ×2 (09:34→22:59)
[2017-06-06] MEDS: FERROUS SO4 325 MG TABLET (FP) PO SCH ×2 (09:34→22:59)
[2017-06-06] MEDS: MULTIVITAMINS (DAILY MVI) TABLET (FP) PO SCH (09:34)
[2017-06-06] MEDS: RANITIDINE HCL 150 MG TABLET (FP) PO SCH ×2 (09:34→22:59)
[2017-06-06] MEDS: amLODIPine BESYLATE 10 MG TABLET (FP) PO SCH (09:34)
[2017-06-06] MEDS: METOPROLOL SUCCINATE 25 MG TAB.SR.24H (FP) PO SCH (09:34)
[2017-06-06] MEDS: LANOLIN (EMOLL) 30 GM TUBE TP SCH ×2 (09:35→22:59)
[2017-06-06] MEDS ORDERED: PT OWN MED DRAWER 7, Y5N ONE ×4 (09:43→17:00)
[2017-06-06] MEDS: TAMSULOSIN HCL 0.4 MG CAP.ER.24H (FP) PO SCH (09:50)
[2017-06-06] MEDS: NYSTATIN POWDER 100,000 UNITS/GM - 15 GM TOPICAL POWDER TP SCH ×2 (09:54→23:00)
[2017-06-06] MEDS: TRIAMCINOLONE ACET 0.1% 60 ML LOTION TP SCH ×2 (09:56→23:00)
[2017-06-06] MEDS: OLANZapine 2.5 MG TABLET PO SCH (10:02)
--- NOTE | 2017-06-06 13:19 | PN ---
Progress Note, Physician Chief Complaint: The patient seen sitting on a wheel chair. In no distress. confused. Seay catheter in place. The patient had been with a Seay for a long time, with h/o outlet obstruction. History of Present Illness: This is a 86 year old gentleman with PMhx of CKD Stage 4 (baseline Cr ~2.5), CHF with preserved LVEF, BPH, Hypertension, Hyperlipidemia who presented from ID with abd pain and found to have Sepsis secondary to UTI with hypothermia and acute renal failure. - Current Medication List Current Medications: Active Medications Acetaminophen (Tylenol -) 650 mg PO Q6HPO PRN PRN Reason: FEVER OR PAIN Albuterol/Ipratropium (Duoneb -) 1 amp NEB Q6H PRN Last Admin: 06/03/17 12:29 Dose: 1 amp Amlodipine Besylate (Norvasc -) 10 mg PO DAILY [facility] Last Admin: 06/06/17 09:34 Dose: 10 mg Ascorbic Acid (Vitamin C -) 500 mg PO BID [facility] Last Admin: 06/06/17 09:34 Dose: 500 mg Emollient Ointment (Lanolin Topical Ointment -) 1 applic TP BID [facility] Last Admin: 06/06/17 09:35 Dose: 1 applic Escitalopram Oxalate (Lexapro -) 20 mg PO DAILY [facility] Last Admin: 06/06/17 09:34 Dose: 20 mg Ferrous Sulfate (Feosol -) 325 mg PO BID [facility] Last Admin: 06/06/17 09:34 Dose: 325 mg Heparin Sodium (Porcine) (Heparin -) 5,000 unit SQ BID [facility] Last Admin: 06/06/17 09:34 Dose: 5,000 unit Piperacillin/Tazobactam/Dextrose (Zosyn 2.25gm Ivpb (Premix)) 50 mls @ 100 mls/ hr IVPB Q6H-IV CINTHYA PRN Reason: Protocol Last Admin: 06/06/17 09:49 Dose: 100 mls/hr Metoprolol Succinate (Toprol Xl -) 25 mg PO DAILY [facility] Last Admin: 06/06/17 09:34 Dose: 25 mg Multivitamins/Minerals/Vitamin C (Tab-A-Vit -) 1 tab PO DAILY [facility] Last Admin: 06/06/17 09:34 Dose: 1 tab Nystatin (Nystop Powder -) 1 applic TP BID [facility] Last Admin: 06/06/17 09:54 Dose: 1 applic Olanzapine (Zyprexa -) 7.5 mg PO DAILY [facility] Last Admin: 06/06/17 10:02 Dose: 7.5 mg Ranitidine HCl (Zantac -) 150 mg PO BID [facility] Last Admin: 06/06/17 09:34 Dose: 150 mg Tamsulosin HCl (Flomax -) 0.4 mg PO DAILY@0830 [facility] Last Admin: 06/06/17 09:50 Dose: 0.4 mg Triamcinolone Acetonide (Aristocort 0.1% Lotion -) 1 applic TP BID [facility] Last Admin: 06/06/17 09:56 Dose: 1 applic Vancomycin HCl (Vancomycin Oral Solution) 125 mg PO Q6HPO [facility] Last Admin: 06/06/17 06:35 Dose: 125 mg - Objective Vital Signs: Vital Signs Temperature 97.4 F L 06/06/17 06:00 Pulse Rate 63 06/06/17 06:00 Respiratory Rate 20 06/06/17 06:00 Blood Pressure 148/79 06/06/17 06:00 O2 Sat by Pulse Oximetry (%) 92 L 06/05/17 21:00 Constitutional: Yes: No Distress Eyes: Yes: Conjunctiva Clear HENT: Yes: Normocephalic Cardiovascular: Yes: S1, S2 Respiratory: Yes: Regular, Diminished Gastrointestinal: Yes: Normal Bowel Sounds, Soft Genitourinary: Yes: Seay Present Neurological: Yes: Confusion Labs: CBC, BMP 06/06/17 07:05 06/06/17 07:05 INR, PTT INR 1.07 (0.82-1.09) 05/31/17 18:00 Problem List - Problems (1) Acute kidney injury Code(s): N17.9 - ACUTE KIDNEY FAILURE, UNSPECIFIED (2) Acute on chronic renal failure Code(s): N17.9 - ACUTE KIDNEY FAILURE, UNSPECIFIED N18.9 - CHRONIC KIDNEY DISEASE, UNSPECIFIED (3) Anemia Code(s): D64.9 - ANEMIA, UNSPECIFIED Qualifiers: 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 Code(s): D50.0 - Iron deficiency anemia secondary to blood loss (chronic); D50.0 - Iron deficiency anemia secondary to blood loss (chronic) (4) Dementia Code(s): F03.90 - UNSPECIFIED DEMENTIA WITHOUT BEHAVIORAL DISTURBANCE (5) HTN (hypertension) Code(s): I10 - ESSENTIAL (PRIMARY) HYPERTENSION (6) Urinary retention Code(s): R33.9 - RETENTION OF URINE, UNSPECIFIED Assessment/Plan This is a 86 year old gentleman with PMhx of CKD Stage 4 (baseline Cr ~2.5), CHF with preserved LVEF, BPH, Hypertension, Hyperlipidemia who presented from ID with Abd pain and found to have Sepsis secondary to UTI with hypothermia Acute Renal failure superimposed on CKD4. The Azotemia is stable, and seems to be tend to settle at this level. Tendency for Hypernatremia, may reflect free water depletion. Nurses trying to push fluids on him. If the Serum Sodium worsens, may require IV Hypotonic fluids. Will monitor the Renal functions. Thank you. Will follow with you. Mary Mirza MD
--- NOTE | 2017-06-06 13:44 | PN ---
Progress Note, Physician Chief Complaint: Mr Reynoso says he is fine and denies cp, sob, n/v. - Current Medication List Current Medications: Active Medications Acetaminophen (Tylenol -) 650 mg PO Q6HPO PRN PRN Reason: FEVER OR PAIN Albuterol/Ipratropium (Duoneb -) 1 amp NEB Q6H PRN Last Admin: 06/03/17 12:29 Dose: 1 amp Amlodipine Besylate (Norvasc -) 10 mg PO DAILY [facility] Last Admin: 06/06/17 09:34 Dose: 10 mg Ascorbic Acid (Vitamin C -) 500 mg PO BID [facility] Last Admin: 06/06/17 09:34 Dose: 500 mg Emollient Ointment (Lanolin Topical Ointment -) 1 applic TP BID [facility] Last Admin: 06/06/17 09:35 Dose: 1 applic Escitalopram Oxalate (Lexapro -) 20 mg PO DAILY [facility] Last Admin: 06/06/17 09:34 Dose: 20 mg Ferrous Sulfate (Feosol -) 325 mg PO BID [facility] Last Admin: 06/06/17 09:34 Dose: 325 mg Heparin Sodium (Porcine) (Heparin -) 5,000 unit SQ BID [facility] Last Admin: 06/06/17 09:34 Dose: 5,000 unit Piperacillin/Tazobactam/Dextrose (Zosyn 2.25gm Ivpb (Premix)) 50 mls @ 100 mls/ hr IVPB Q6H-IV CINTHYA PRN Reason: Protocol Last Admin: 06/06/17 09:49 Dose: 100 mls/hr Metoprolol Succinate (Toprol Xl -) 25 mg PO DAILY [facility] Last Admin: 06/06/17 09:34 Dose: 25 mg Multivitamins/Minerals/Vitamin C (Tab-A-Vit -) 1 tab PO DAILY [facility] Last Admin: 06/06/17 09:34 Dose: 1 tab Nystatin (Nystop Powder -) 1 applic TP BID [facility] Last Admin: 06/06/17 09:54 Dose: 1 applic Olanzapine (Zyprexa -) 7.5 mg PO DAILY [facility] Last Admin: 06/06/17 10:02 Dose: 7.5 mg Ranitidine HCl (Zantac -) 150 mg PO BID [facility] Last Admin: 06/06/17 09:34 Dose: 150 mg Tamsulosin HCl (Flomax -) 0.4 mg PO DAILY@0830 [facility] Last Admin: 06/06/17 09:50 Dose: 0.4 mg Triamcinolone Acetonide (Aristocort 0.1% Lotion -) 1 applic TP BID [facility] Last Admin: 06/06/17 09:56 Dose: 1 applic Vancomycin HCl (Vancomycin Oral Solution) 125 mg PO Q6HPO [facility] Last Admin: 06/06/17 06:35 Dose: 125 mg - Objective Vital Signs: Vital Signs Temperature 36.3 C L 06/06/17 06:00 Pulse Rate 63 06/06/17 06:00 Respiratory Rate 20 06/06/17 06:00 Blood Pressure 148/79 06/06/17 06:00 O2 Sat by Pulse Oximetry (%) 92 L 06/05/17 21:00 Constitutional: Yes: Well Nourished, No Distress, Calm Cardiovascular: Yes: Regular Rate and Rhythm. No: Gallop, Murmur, Rub Respiratory: Yes: Regular, CTA Bilaterally. No: Rales, Rhonchi, Wheezes Gastrointestinal: Yes: Normal Bowel Sounds, Soft. No: Distention, Tenderness Extremities: Yes: Erythema Edema: No Labs: CBC, BMP 06/06/17 07:05 06/06/17 07:05 INR, PTT INR 1.07 (0.82-1.09) 05/31/17 18:00 Problem List - Problems (1) Sepsis Code(s): A41.9 - SEPSIS, UNSPECIFIED ORGANISM Qualifiers: Sepsis type: sepsis due to unspecified organism Qualified Code(s): A41.9 - Sepsis, unspecified organism; A41.9 - Sepsis, unspecified organism; A41.9 - Sepsis, unspecified organism (2) UTI (urinary tract infection) Code(s): N39.0 - URINARY TRACT INFECTION, SITE NOT SPECIFIED Qualifiers: Urinary tract infection type: site unspecified Hematuria presence: without hematuria Qualified Code(s): N39.0 - Urinary tract infection, site not specified; N39.0 - Urinary tract infection, site not specified; R31.9 - Hematuria, unspecified; R31.9 - Hematuria, unspecified (3) Acute on chronic renal failure Code(s): N17.9 - ACUTE KIDNEY FAILURE, UNSPECIFIED N18.9 - CHRONIC KIDNEY DISEASE, UNSPECIFIED (4) CAD (coronary artery disease) Code(s): I25.10 - ATHSCL HEART DISEASE OF [place] CORONARY ARTERY W/O ANG PCTRS (5) CHF (congestive heart failure) Code(s): I50.9 - HEART FAILURE, UNSPECIFIED Qualifiers: Congestive heart failure type: diastolic Congestive heart failure chronicity: chronic Qualified Code(s): I50.32 - Chronic diastolic ( congestive) heart failure; I50.32 - Chronic diastolic (congestive) heart failure ; I50.32 - Chronic diastolic (congestive) heart failure; I50.32 - Chronic diastolic (congestive) heart failure (6) Dementia Code(s): F03.90 - UNSPECIFIED DEMENTIA WITHOUT BEHAVIORAL DISTURBANCE (7) HTN (hypertension) Code(s): I10 - ESSENTIAL (PRIMARY) HYPERTENSION Assessment/Plan (1) Sepsis Assessment/Plan: -resolved -treat underlying UTI Code(s): A41.9 - SEPSIS, UNSPECIFIED ORGANISM Qualifiers: Sepsis type: sepsis due to unspecified organism Qualified Code(s): A41.9 - Sepsis, unspecified organism; A41.9 - Sepsis, unspecified organism; A41.9 - Sepsis, unspecified organism (2) UTI (urinary tract infection) Assessment/Plan: -urine growing pseudomonas -continue zosyn -ID following Code(s): N39.0 - URINARY TRACT INFECTION, SITE NOT SPECIFIED Qualifiers: Urinary tract infection type: site unspecified Hematuria presence: without hematuria Qualified Code(s): N39.0 - Urinary tract infection, site not specified; N39.0 - Urinary tract infection, site not specified; R31.9 - Hematuria, unspecified; R31.9 - Hematuria, unspecified (3) Acute on chronic renal failure Assessment/Plan: -stable -appreciate nephrology assistance Code(s): N17.9 - ACUTE KIDNEY FAILURE, UNSPECIFIED N18.9 - CHRONIC KIDNEY DISEASE, UNSPECIFIED (4) CAD (coronary artery disease) Assessment/Plan: -stable -continue current regimen Code(s): I25.10 - ATHSCL HEART DISEASE OF [place] CORONARY ARTERY W/O ANG PCTRS (5) CHF (congestive heart failure) Assessment/Plan: -not in exacerbation -holding diuretics at this time Code(s): I50.9 - HEART FAILURE, UNSPECIFIED Qualifiers: Congestive heart failure type: diastolic Congestive heart failure chronicity: chronic Qualified Code(s): I50.32 - Chronic diastolic ( congestive) heart failure; I50.32 - Chronic diastolic (congestive) heart failure ; I50.32 - Chronic diastolic (congestive) heart failure; I50.32 - Chronic diastolic (congestive) heart failure (6) Dementia Assessment/Plan: -at baseline -continue current regimen Code(s): F03.90 - UNSPECIFIED DEMENTIA WITHOUT BEHAVIORAL DISTURBANCE (7) HTN (hypertension) Assessment/Plan: -well controlled Code(s): I10 - ESSENTIAL (PRIMARY) HYPERTENSION (8) C diff colitis -continue oral vancomycin
--- NOTE | 2017-06-06 15:13 | PN ---
Progress Note, Physician History of Present Illness: stable no new issues - Current Medication List Current Medications: Active Medications Acetaminophen (Tylenol -) 650 mg PO Q6HPO PRN PRN Reason: FEVER OR PAIN Albuterol/Ipratropium (Duoneb -) 1 amp NEB Q6H PRN Last Admin: 06/03/17 12:29 Dose: 1 amp Amlodipine Besylate (Norvasc -) 10 mg PO DAILY [facility] Last Admin: 06/06/17 09:34 Dose: 10 mg Ascorbic Acid (Vitamin C -) 500 mg PO BID [facility] Last Admin: 06/06/17 09:34 Dose: 500 mg Emollient Ointment (Lanolin Topical Ointment -) 1 applic TP BID [facility] Last Admin: 06/06/17 09:35 Dose: 1 applic Escitalopram Oxalate (Lexapro -) 20 mg PO DAILY [facility] Last Admin: 06/06/17 09:34 Dose: 20 mg Ferrous Sulfate (Feosol -) 325 mg PO BID [facility] Last Admin: 06/06/17 09:34 Dose: 325 mg Heparin Sodium (Porcine) (Heparin -) 5,000 unit SQ BID [facility] Last Admin: 06/06/17 09:34 Dose: 5,000 unit Piperacillin/Tazobactam/Dextrose (Zosyn 2.25gm Ivpb (Premix)) 50 mls @ 100 mls/ hr IVPB Q6H-IV CINTHYA PRN Reason: Protocol Last Admin: 06/06/17 09:49 Dose: 100 mls/hr Metoprolol Succinate (Toprol Xl -) 25 mg PO DAILY [facility] Last Admin: 06/06/17 09:34 Dose: 25 mg Multivitamins/Minerals/Vitamin C (Tab-A-Vit -) 1 tab PO DAILY [facility] Last Admin: 06/06/17 09:34 Dose: 1 tab Nystatin (Nystop Powder -) 1 applic TP BID [facility] Last Admin: 06/06/17 09:54 Dose: 1 applic Olanzapine (Zyprexa -) 7.5 mg PO DAILY [facility] Last Admin: 06/06/17 10:02 Dose: 7.5 mg Ranitidine HCl (Zantac -) 150 mg PO BID [facility] Last Admin: 06/06/17 09:34 Dose: 150 mg Tamsulosin HCl (Flomax -) 0.4 mg PO DAILY@0830 [facility] Last Admin: 06/06/17 09:50 Dose: 0.4 mg Triamcinolone Acetonide (Aristocort 0.1% Lotion -) 1 applic TP BID [facility] Last Admin: 06/06/17 09:56 Dose: 1 applic Vancomycin HCl (Vancomycin Oral Solution) 125 mg PO Q6HPO [facility] Last Admin: 06/06/17 14:01 Dose: 125 mg - Objective Vital Signs: Vital Signs Temperature 97.4 F L 06/06/17 06:00 Pulse Rate 63 06/06/17 06:00 Respiratory Rate 20 06/06/17 06:00 Blood Pressure 148/79 06/06/17 06:00 O2 Sat by Pulse Oximetry (%) 92 L 06/05/17 21:00 Constitutional: Yes: No Distress, Calm Cardiovascular: Yes: Regular Rate and Rhythm Respiratory: Yes: Regular, CTA Bilaterally Musculoskeletal: Yes: Other Extremities: Yes: Other Neurological: Yes: Alert Psychiatric: Yes: Alert Labs: CBC, BMP 06/06/17 07:05 06/06/17 07:05 INR, PTT INR 1.07 (0.82-1.09) 05/31/17 18:00 Assessment/Plan Problem List - Problems (1) Sepsis Code(s): A41.9 - SEPSIS, UNSPECIFIED ORGANISM Qualifiers: Sepsis type: sepsis due to unspecified organism Qualified Code(s): A41.9 - Sepsis, unspecified organism; A41.9 - Sepsis, unspecified organism; A41.9 - Sepsis, unspecified organism (2) UTI (urinary tract infection) Code(s): N39.0 - URINARY TRACT INFECTION, SITE NOT SPECIFIED Qualifiers: Urinary tract infection type: site unspecified Hematuria presence: without hematuria Qualified Code(s): N39.0 - Urinary tract infection, site not specified; N39.0 - Urinary tract infection, site not specified; R31.9 - Hematuria, unspecified; R31.9 - Hematuria, unspecified (3) Acute on chronic renal failure Code(s): N17.9 - ACUTE KIDNEY FAILURE, UNSPECIFIED N18.9 - CHRONIC KIDNEY DISEASE, UNSPECIFIED (4) CAD (coronary artery disease) Code(s): I25.10 - ATHSCL HEART DISEASE OF [place] CORONARY ARTERY W/O ANG PCTRS (5) CHF (congestive heart failure) Code(s): I50.9 - HEART FAILURE, UNSPECIFIED Qualifiers: Congestive heart failure type: diastolic Congestive heart failure chronicity: chronic Qualified Code(s): I50.32 - Chronic diastolic ( congestive) heart failure; I50.32 - Chronic diastolic (congestive) heart failure ; I50.32 - Chronic diastolic (congestive) heart failure; I50.32 - Chronic diastolic (congestive) heart failure (6) Dementia Code(s): F03.90 - UNSPECIFIED DEMENTIA WITHOUT BEHAVIORAL DISTURBANCE (7) HTN (hypertension) Code(s): I10 - ESSENTIAL (PRIMARY) HYPERTENSION patient well known to me from last admission coming in with sepsis and hypothermia plan continue oral vanco continue abx can stop zosyn after sunday rest as per primary
[2017-06-07] MEDS: VANCOMYCIN 250 MG/5 ML ORAL SOLUTION PO SCH ×4 (00:10→17:22)
[2017-06-07] MEDS: PIPERACILLIN/TAZOB 2.25 GM 50 ML IVPB SCH ×2 (03:00→09:42)
[2017-06-07 08:48] LABS: ALBUMIN 2.3 g/dl (3.4-5.0); ANION GAP 11 (8-16); CALCIUM 8.7 mg/dL (8.5-10.1); CO2 21 mmol/L (21-32); GLUCOSE,RANDOM 90 mg/dL (74-106)
[2017-06-07 08:51] LABS: ALK PHOS 114 U/L (45-117); BILIRUBIN,TOTAL 0.3 mg/dL (0.2-1.0); CREATININE 3.2 mg/dL (0.7-1.3); SGOT/AST 13 U/L (15-37); SGPT/ALT 22 U/L (12-78); TOT PROT 5.7 g/dl (6.4-8.2)
[2017-06-07] MEDS ORDERED: PT OWN MED DRAWER 7, Y5N ONE ×3 (09:24→17:19)
[2017-06-07] MEDS: TAMSULOSIN HCL 0.4 MG CAP.ER.24H (FP) PO SCH (09:26)
[2017-06-07] MEDS: amLODIPine BESYLATE 10 MG TABLET (FP) PO SCH (09:26)
[2017-06-07] MEDS: FERROUS SO4 325 MG TABLET (FP) PO SCH ×2 (09:26→22:06)
[2017-06-07] MEDS: RANITIDINE HCL 150 MG TABLET (FP) PO SCH ×2 (09:26→22:08)
[2017-06-07] MEDS: MULTIVITAMINS (DAILY MVI) TABLET (FP) PO SCH (09:26)
[2017-06-07] MEDS: METOPROLOL SUCCINATE 25 MG TAB.SR.24H (FP) PO SCH (09:26)
[2017-06-07] MEDS: ASCORBIC ACID 500 MG TABLET (FP) PO SCH ×2 (09:26→22:07)
[2017-06-07] MEDS: HEPARIN NA (PORCINE) 5,000 UNITS/ML 1ML VIAL SQ SCH ×2 (09:26→22:07)
[2017-06-07] MEDS: ESCITALOPRAM OXALATE 20 MG TABLET (FP) PO SCH (09:26)
[2017-06-07] MEDS: OLANZapine 2.5 MG TABLET PO SCH (09:27)
[2017-06-07] MEDS: LANOLIN (EMOLL) 30 GM TUBE TP SCH ×2 (09:38→22:07)
[2017-06-07] MEDS: NYSTATIN POWDER 100,000 UNITS/GM - 15 GM TOPICAL POWDER TP SCH ×2 (09:39→22:08)
[2017-06-07] MEDS: TRIAMCINOLONE ACET 0.1% 60 ML LOTION TP SCH ×2 (09:41→22:07)
--- NOTE | 2017-06-07 13:19 | PN ---
Progress Note, Physician Chief Complaint: The patient seen sitting on a wheel chair. Comfortable. No chest pain. No shortness of breath. Seay catheter draining large amounts of urine, with suspended "gunk". Will have the catheter changed. History of Present Illness: This is a 86 year old gentleman with PMhx of CKD Stage 4 (baseline Cr ~2.5), CHF with preserved LVEF, BPH, Hypertension, Hyperlipidemia who presented [place] with abd pain and found to have Sepsis secondary to UTI with hypothermia and acute renal failure. - Current Medication List Current Medications: Active Medications Acetaminophen (Tylenol -) 650 mg PO Q6HPO PRN PRN Reason: FEVER OR PAIN Albuterol/Ipratropium (Duoneb -) 1 amp NEB Q6H PRN Last Admin: 06/03/17 12:29 Dose: 1 amp Amlodipine Besylate (Norvasc -) 10 mg PO DAILY [facility] Last Admin: 06/07/17 09:26 Dose: 10 mg Ascorbic Acid (Vitamin C -) 500 mg PO BID [facility] Last Admin: 06/07/17 09:26 Dose: 500 mg Emollient Ointment (Lanolin Topical Ointment -) 1 applic TP BID [facility] Last Admin: 06/07/17 09:38 Dose: 1 applic Escitalopram Oxalate (Lexapro -) 20 mg PO DAILY [facility] Last Admin: 06/07/17 09:26 Dose: 20 mg Ferrous Sulfate (Feosol -) 325 mg PO BID [facility] Last Admin: 06/07/17 09:26 Dose: 325 mg Heparin Sodium (Porcine) (Heparin -) 5,000 unit SQ BID [facility] Last Admin: 06/07/17 09:26 Dose: 5,000 unit Piperacillin/Tazobactam/Dextrose (Zosyn 2.25gm Ivpb (Premix)) 50 mls @ 100 mls/ hr IVPB Q6H-IV CINTHYA PRN Reason: Protocol Last Admin: 06/07/17 09:42 Dose: 100 mls/hr Metoprolol Succinate (Toprol Xl -) 25 mg PO DAILY [facility] Last Admin: 06/07/17 09:26 Dose: 25 mg Multivitamins/Minerals/Vitamin C (Tab-A-Vit -) 1 tab PO DAILY [facility] Last Admin: 06/07/17 09:26 Dose: 1 tab Nystatin (Nystop Powder -) 1 applic TP BID [facility] Last Admin: 06/07/17 09:39 Dose: 1 applic Olanzapine (Zyprexa -) 7.5 mg PO DAILY [facility] Last Admin: 06/07/17 09:27 Dose: 7.5 mg Ranitidine HCl (Zantac -) 150 mg PO BID [facility] Last Admin: 06/07/17 09:26 Dose: 150 mg Tamsulosin HCl (Flomax -) 0.4 mg PO DAILY@0830 [facility] Last Admin: 06/07/17 09:26 Dose: 0.4 mg Triamcinolone Acetonide (Aristocort 0.1% Lotion -) 1 applic TP BID [facility] Last Admin: 06/07/17 09:41 Dose: 1 applic Vancomycin HCl (Vancomycin Oral Solution) 125 mg PO Q6HPO [facility] Last Admin: 06/07/17 06:20 Dose: 125 mg - Objective Vital Signs: Vital Signs Temperature 97.4 F L 06/07/17 11:20 Pulse Rate 66 06/07/17 11:20 Respiratory Rate 18 06/07/17 11:20 Blood Pressure 149/68 06/07/17 11:20 O2 Sat by Pulse Oximetry (%) 95 06/06/17 21:00 Constitutional: Yes: Calm, Pallor Eyes: Yes: Conjunctiva Clear HENT: Yes: Atraumatic Neck: Yes: Trachea Midline Cardiovascular: Yes: S1, S2 Respiratory: Yes: Regular Gastrointestinal: Yes: Normal Bowel Sounds, Soft Genitourinary: Yes: Seay Present. 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 Code(s): D50.0 - Iron deficiency anemia secondary to blood loss (chronic); D50.0 - Iron deficiency anemia secondary to blood loss (chronic) (4) Dementia Code(s): F03.90 - UNSPECIFIED DEMENTIA WITHOUT BEHAVIORAL DISTURBANCE (5) HTN (hypertension) Code(s): I10 - ESSENTIAL (PRIMARY) HYPERTENSION (6) Urinary retention Code(s): R33.9 - RETENTION OF URINE, UNSPECIFIED Assessment/Plan This is a 86 year old gentleman with PMhx of CKD Stage 4 (baseline Cr ~2.5), CHF with preserved LVEF, BPH, Hypertension, Hyperlipidemia who presented [place] with Abd pain and found to have Sepsis secondary to UTI with hypothermia Acute Renal failure superimposed on CKD4. The Azotemia is stable, and seems to be tend to settle at this level. Hypernatremia, improving. Attempting to push fluids on him. Will change the Seay catheter. Will monitor the Renal functions. Thank you. Will follow with you. Mary Mirza MD
[2017-06-07 13:28] LABS: BASOPHIL 0.6 % (0-2.0); EOSINOPHIL 3.9 % (0-4.5); MCH 29.5 pg (25.7-33.7); MCHC 33.1 g/dl (32.0-35.9); MEAN CELL VOLUME 89.1 fl (80-96); MEAN PLT VOLUME 7.2 fl (7.5-11.1); PLATELET COUNT 268 K/MM3 (134-434); RDW 15.6 % (11.9-15.9); WHITE BLOOD COUNT 9.8 K/mm3 (4.0-10.0)
--- NOTE | 2017-06-07 14:55 | PN ---
Progress Note, Physician History of Present Illness: stable no new issues - Current Medication List Current Medications: Active Medications Acetaminophen (Tylenol -) 650 mg PO Q6HPO PRN PRN Reason: FEVER OR PAIN Albuterol/Ipratropium (Duoneb -) 1 amp NEB Q6H PRN Last Admin: 06/03/17 12:29 Dose: 1 amp Amlodipine Besylate (Norvasc -) 10 mg PO DAILY [facility] Last Admin: 06/07/17 09:26 Dose: 10 mg Ascorbic Acid (Vitamin C -) 500 mg PO BID [facility] Last Admin: 06/07/17 09:26 Dose: 500 mg Emollient Ointment (Lanolin Topical Ointment -) 1 applic TP BID [facility] Last Admin: 06/07/17 09:38 Dose: 1 applic Escitalopram Oxalate (Lexapro -) 20 mg PO DAILY [facility] Last Admin: 06/07/17 09:26 Dose: 20 mg Ferrous Sulfate (Feosol -) 325 mg PO BID [facility] Last Admin: 06/07/17 09:26 Dose: 325 mg Heparin Sodium (Porcine) (Heparin -) 5,000 unit SQ BID [facility] Last Admin: 06/07/17 09:26 Dose: 5,000 unit Piperacillin/Tazobactam/Dextrose (Zosyn 2.25gm Ivpb (Premix)) 50 mls @ 100 mls/ hr IVPB Q6H-IV CINTHYA PRN Reason: Protocol Last Admin: 06/07/17 09:42 Dose: 100 mls/hr Metoprolol Succinate (Toprol Xl -) 25 mg PO DAILY [facility] Last Admin: 06/07/17 09:26 Dose: 25 mg Multivitamins/Minerals/Vitamin C (Tab-A-Vit -) 1 tab PO DAILY [facility] Last Admin: 06/07/17 09:26 Dose: 1 tab Nystatin (Nystop Powder -) 1 applic TP BID [facility] Last Admin: 06/07/17 09:39 Dose: 1 applic Olanzapine (Zyprexa -) 7.5 mg PO DAILY [facility] Last Admin: 06/07/17 09:27 Dose: 7.5 mg Ranitidine HCl (Zantac -) 150 mg PO BID [facility] Last Admin: 06/07/17 09:26 Dose: 150 mg Tamsulosin HCl (Flomax -) 0.4 mg PO DAILY@0830 [facility] Last Admin: 06/07/17 09:26 Dose: 0.4 mg Triamcinolone Acetonide (Aristocort 0.1% Lotion -) 1 applic TP BID [facility] Last Admin: 06/07/17 09:41 Dose: 1 applic Vancomycin HCl (Vancomycin Oral Solution) 125 mg PO Q6HPO [facility] Last Admin: 06/07/17 13:44 Dose: 125 mg - Objective Vital Signs: Vital Signs Temperature 97.8 F 06/07/17 14:53 Pulse Rate 54 L 06/07/17 14:53 Respiratory Rate 18 06/07/17 14:53 Blood Pressure 121/45 06/07/17 14:53 O2 Sat by Pulse Oximetry (%) 95 06/06/17 21:00 Constitutional: Yes: No Distress, Calm Cardiovascular: Yes: Regular Rate and Rhythm Respiratory: Yes: Regular, CTA Bilaterally Gastrointestinal: Yes: Normal Bowel Sounds, Soft Musculoskeletal: Yes: Other Extremities: Yes: Other Neurological: Yes: Alert, Other Psychiatric: Yes: Other Labs: CBC, BMP 06/07/17 13:20 06/07/17 07:00 INR, PTT INR 1.07 (0.82-1.09) 05/31/17 18:00 Assessment/Plan Problem List - Problems (1) Sepsis Code(s): A41.9 - SEPSIS, UNSPECIFIED ORGANISM Qualifiers: Sepsis type: sepsis due to unspecified organism Qualified Code(s): A41.9 - Sepsis, unspecified organism; A41.9 - Sepsis, unspecified organism; A41.9 - Sepsis, unspecified organism (2) UTI (urinary tract infection) Code(s): N39.0 - URINARY TRACT INFECTION, SITE NOT SPECIFIED Qualifiers: Urinary tract infection type: site unspecified Hematuria presence: without hematuria Qualified Code(s): N39.0 - Urinary tract infection, site not specified; N39.0 - Urinary tract infection, site not specified; R31.9 - Hematuria, unspecified; R31.9 - Hematuria, unspecified (3) Acute on chronic renal failure Code(s): N17.9 - ACUTE KIDNEY FAILURE, UNSPECIFIED N18.9 - CHRONIC KIDNEY DISEASE, UNSPECIFIED (4) CAD (coronary artery disease) Code(s): I25.10 - ATHSCL HEART DISEASE OF [place] CORONARY ARTERY W/O ANG PCTRS (5) CHF (congestive heart failure) Code(s): I50.9 - HEART FAILURE, UNSPECIFIED Qualifiers: Congestive heart failure type: diastolic Congestive heart failure chronicity: chronic Qualified Code(s): I50.32 - Chronic diastolic ( congestive) heart failure; I50.32 - Chronic diastolic (congestive) heart failure ; I50.32 - Chronic diastolic (congestive) heart failure; I50.32 - Chronic diastolic (congestive) heart failure (6) Dementia Code(s): F03.90 - UNSPECIFIED DEMENTIA WITHOUT BEHAVIORAL DISTURBANCE (7) HTN (hypertension) Code(s): I10 - ESSENTIAL (PRIMARY) HYPERTENSION patient well known to me from last admission coming in with sepsis and hypothermia plan conitnue oral vanco will stop abx and watch rest as per primary team
--- NOTE | 2017-06-07 15:32 | PN ---
Progress Note, Physician Chief Complaint: Mr Reynoso says he is fine and denies cp, sob, n/v. - Current Medication List Current Medications: Active Medications Acetaminophen (Tylenol -) 650 mg PO Q6HPO PRN PRN Reason: FEVER OR PAIN Albuterol/Ipratropium (Duoneb -) 1 amp NEB Q6H PRN Last Admin: 06/03/17 12:29 Dose: 1 amp Amlodipine Besylate (Norvasc -) 10 mg PO DAILY [facility] Last Admin: 06/07/17 09:26 Dose: 10 mg Ascorbic Acid (Vitamin C -) 500 mg PO BID [facility] Last Admin: 06/07/17 09:26 Dose: 500 mg Emollient Ointment (Lanolin Topical Ointment -) 1 applic TP BID [facility] Last Admin: 06/07/17 09:38 Dose: 1 applic Escitalopram Oxalate (Lexapro -) 20 mg PO DAILY [facility] Last Admin: 06/07/17 09:26 Dose: 20 mg Ferrous Sulfate (Feosol -) 325 mg PO BID [facility] Last Admin: 06/07/17 09:26 Dose: 325 mg Heparin Sodium (Porcine) (Heparin -) 5,000 unit SQ BID [facility] Last Admin: 06/07/17 09:26 Dose: 5,000 unit Metoprolol Succinate (Toprol Xl -) 25 mg PO DAILY [facility] Last Admin: 06/07/17 09:26 Dose: 25 mg Multivitamins/Minerals/Vitamin C (Tab-A-Vit -) 1 tab PO DAILY [facility] Last Admin: 06/07/17 09:26 Dose: 1 tab Nystatin (Nystop Powder -) 1 applic TP BID [facility] Last Admin: 06/07/17 09:39 Dose: 1 applic Olanzapine (Zyprexa -) 7.5 mg PO DAILY [facility] Last Admin: 06/07/17 09:27 Dose: 7.5 mg Ranitidine HCl (Zantac -) 150 mg PO BID [facility] Last Admin: 06/07/17 09:26 Dose: 150 mg Tamsulosin HCl (Flomax -) 0.4 mg PO DAILY@0830 [facility] Last Admin: 06/07/17 09:26 Dose: 0.4 mg Triamcinolone Acetonide (Aristocort 0.1% Lotion -) 1 applic TP BID [facility] Last Admin: 06/07/17 09:41 Dose: 1 applic Vancomycin HCl (Vancomycin Oral Solution) 125 mg PO Q6HPO [facility] Last Admin: 06/07/17 13:44 Dose: 125 mg - Objective Vital Signs: Vital Signs Temperature 36.6 C 06/07/17 14:53 Pulse Rate 54 L 06/07/17 14:53 Respiratory Rate 18 06/07/17 14:53 Blood Pressure 121/45 06/07/17 14:53 O2 Sat by Pulse Oximetry (%) 95 06/06/17 21:00 Constitutional: Yes: Well Nourished, No Distress, Calm Cardiovascular: Yes: Regular Rate and Rhythm. No: Gallop, Murmur, Rub Respiratory: Yes: Regular, CTA Bilaterally. No: Rales, Rhonchi, Wheezes Gastrointestinal: Yes: Normal Bowel Sounds, Soft. No: Distention, Tenderness Extremities: Yes: Erythema Edema: No Labs: CBC, BMP 06/07/17 13:20 06/07/17 07:00 INR, PTT INR 1.07 (0.82-1.09) 05/31/17 18:00 Problem List - Problems (1) Sepsis Code(s): A41.9 - SEPSIS, UNSPECIFIED ORGANISM Qualifiers: Sepsis type: sepsis due to unspecified organism Qualified Code(s): A41.9 - Sepsis, unspecified organism; A41.9 - Sepsis, unspecified organism; A41.9 - Sepsis, unspecified organism (2) UTI (urinary tract infection) Code(s): N39.0 - URINARY TRACT INFECTION, SITE NOT SPECIFIED Qualifiers: Urinary tract infection type: site unspecified Hematuria presence: without hematuria Qualified Code(s): N39.0 - Urinary tract infection, site not specified; N39.0 - Urinary tract infection, site not specified; R31.9 - Hematuria, unspecified; R31.9 - Hematuria, unspecified (3) Acute on chronic renal failure Code(s): N17.9 - ACUTE KIDNEY FAILURE, UNSPECIFIED N18.9 - CHRONIC KIDNEY DISEASE, UNSPECIFIED (4) CAD (coronary artery disease) Code(s): I25.10 - ATHSCL HEART DISEASE OF [place] CORONARY ARTERY W/O ANG PCTRS (5) CHF (congestive heart failure) Code(s): I50.9 - HEART FAILURE, UNSPECIFIED Qualifiers: Congestive heart failure type: diastolic Congestive heart failure chronicity: chronic Qualified Code(s): I50.32 - Chronic diastolic ( congestive) heart failure; I50.32 - Chronic diastolic (congestive) heart failure ; I50.32 - Chronic diastolic (congestive) heart failure; I50.32 - Chronic diastolic (congestive) heart failure (6) Dementia Code(s): F03.90 - UNSPECIFIED DEMENTIA WITHOUT BEHAVIORAL DISTURBANCE (7) HTN (hypertension) Code(s): I10 - ESSENTIAL (PRIMARY) HYPERTENSION Assessment/Plan (1) Sepsis Assessment/Plan: -resolved -treat underlying UTI Code(s): A41.9 - SEPSIS, UNSPECIFIED ORGANISM Qualifiers: Sepsis type: sepsis due to unspecified organism Qualified Code(s): A41.9 - Sepsis, unspecified organism; A41.9 - Sepsis, unspecified organism; A41.9 - Sepsis, unspecified organism (2) UTI (urinary tract infection) Assessment/Plan: -urine growing pseudomonas -continue zosyn -case d/w ID, can stop zosyn tomorrow Code(s): N39.0 - URINARY TRACT INFECTION, SITE NOT SPECIFIED Qualifiers: Urinary tract infection type: site unspecified Hematuria presence: without hematuria Qualified Code(s): N39.0 - Urinary tract infection, site not specified; N39.0 - Urinary tract infection, site not specified; R31.9 - Hematuria, unspecified; R31.9 - Hematuria, unspecified (3) Acute on chronic renal failure Assessment/Plan: -improved -appreciate nephrology assistance Code(s): N17.9 - ACUTE KIDNEY FAILURE, UNSPECIFIED N18.9 - CHRONIC KIDNEY DISEASE, UNSPECIFIED (4) CAD (coronary artery disease) Assessment/Plan: -stable -continue current regimen Code(s): I25.10 - ATHSCL HEART DISEASE OF [place] CORONARY ARTERY W/O ANG PCTRS (5) CHF (congestive heart failure) Assessment/Plan: -not in exacerbation -holding diuretics at this time Code(s): I50.9 - HEART FAILURE, UNSPECIFIED Qualifiers: Congestive heart failure type: diastolic Congestive heart failure chronicity: chronic Qualified Code(s): I50.32 - Chronic diastolic ( congestive) heart failure; I50.32 - Chronic diastolic (congestive) heart failure ; I50.32 - Chronic diastolic (congestive) heart failure; I50.32 - Chronic diastolic (congestive) heart failure (6) Dementia Assessment/Plan: -at baseline -continue current regimen Code(s): F03.90 - UNSPECIFIED DEMENTIA WITHOUT BEHAVIORAL DISTURBANCE (7) HTN (hypertension) Assessment/Plan: -well controlled Code(s): I10 - ESSENTIAL (PRIMARY) HYPERTENSION (8) C diff colitis -continue oral vancomycin Dispo -possible discharge tomorrow
[2017-06-07] MEDS ORDERED: INSULIN (NOVOLOG) ASPART 100 UNITS/ML 10ML VIAL ONE (17:09)
[2017-06-07] MEDS ORDERED: INSULIN DETEMIR 100 UNITS/ML MDV SQ ONE (17:09)
[2017-06-08] MEDS: VANCOMYCIN 250 MG/5 ML ORAL SOLUTION PO SCH (00:39)
[2017-06-08] MEDS: TAMSULOSIN HCL 0.4 MG CAP.ER.24H (FP) PO SCH (08:56)
[2017-06-08 09:13] LABS: BASOPHIL 0.3 % (0-2.0); EOSINOPHIL 2.5 % (0-4.5); MCH 30.3 pg (25.7-33.7); MCHC 34.6 g/dl (32.0-35.9); MEAN CELL VOLUME 87.5 fl (80-96); MEAN PLT VOLUME 7.8 fl (7.5-11.1); NEUTROPHILS 86.2 % (42.8-82.8); PLATELET COUNT 283 K/MM3 (134-434); RDW 15.5 % (11.9-15.9); WHITE BLOOD COUNT 7.5 K/mm3 (4.0-10.0)
[2017-06-08 09:39] LABS: ANION GAP 8 (8-16); CALCIUM 8.3 mg/dL (8.5-10.1); CO2 25 mmol/L (21-32); CREATININE 3.2 mg/dL (0.7-1.3); GLUCOSE,RANDOM 111 mg/dL (74-106); MAGNESIUM 1.8 mg/dL (1.8-2.4); PHOSPHOROUS 3.8 mg/dL (2.5-4.9)
[2017-06-08] MEDS: FERROUS SO4 325 MG TABLET (FP) PO SCH (10:12)
[2017-06-08] MEDS: HEPARIN NA (PORCINE) 5,000 UNITS/ML 1ML VIAL SQ SCH (10:12)
[2017-06-08] MEDS: amLODIPine BESYLATE 10 MG TABLET (FP) PO SCH (10:13)
[2017-06-08] MEDS: ESCITALOPRAM OXALATE 20 MG TABLET (FP) PO SCH (10:13)
[2017-06-08] MEDS: METOPROLOL SUCCINATE 25 MG TAB.SR.24H (FP) PO SCH (10:13)
[2017-06-08] MEDS: MULTIVITAMINS (DAILY MVI) TABLET (FP) PO SCH (10:13)
[2017-06-08] MEDS: ASCORBIC ACID 500 MG TABLET (FP) PO SCH (10:14)
[2017-06-08] MEDS: RANITIDINE HCL 150 MG TABLET (FP) PO SCH (10:14)
[2017-06-08] MEDS ORDERED: PT OWN MED DRAWER 7, Y5N ONE (10:15)
[2017-06-08] MEDS: OLANZapine 2.5 MG TABLET PO SCH (10:16)
[2017-06-08] MEDS: NYSTATIN POWDER 100,000 UNITS/GM - 15 GM TOPICAL POWDER TP SCH (10:21)
[2017-06-08] MEDS: LANOLIN (EMOLL) 30 GM TUBE TP SCH (10:21)
[2017-06-08] MEDS: TRIAMCINOLONE ACET 0.1% 60 ML LOTION TP SCH (10:22)
--- NOTE | 2017-06-08 11:30 | PN ---
Progress Note, Physician Chief Complaint: The patient seen in his room. Comfortable. No chest pain. No shortness of breath. Seay catheter draining large amounts of urine, with suspended "gunk". Will have the catheter changed. History of Present Illness: This is a 86 year old gentleman with PMhx of CKD Stage 4 (baseline Cr ~2.5), CHF with preserved LVEF, BPH, Hypertension, Hyperlipidemia who presented from [place] with abd pain and found to have Sepsis secondary to UTI with hypothermia and acute renal failure. - Current Medication List Current Medications: Active Medications Acetaminophen (Tylenol -) 650 mg PO Q6HPO PRN PRN Reason: FEVER OR PAIN Albuterol/Ipratropium (Duoneb -) 1 amp NEB Q6H PRN Last Admin: 06/03/17 12:29 Dose: 1 amp Amlodipine Besylate (Norvasc -) 10 mg PO DAILY [facility] Last Admin: 06/08/17 10:13 Dose: 10 mg Ascorbic Acid (Vitamin C -) 500 mg PO BID [facility] Last Admin: 06/08/17 10:14 Dose: 500 mg Emollient Ointment (Lanolin Topical Ointment -) 1 applic TP BID [facility] Last Admin: 06/08/17 10:21 Dose: 1 applic Escitalopram Oxalate (Lexapro -) 20 mg PO DAILY [facility] Last Admin: 06/08/17 10:13 Dose: 20 mg Ferrous Sulfate (Feosol -) 325 mg PO BID [facility] Last Admin: 06/08/17 10:12 Dose: 325 mg Heparin Sodium (Porcine) (Heparin -) 5,000 unit SQ BID [facility] Last Admin: 06/08/17 10:12 Dose: 5,000 unit Metoprolol Succinate (Toprol Xl -) 25 mg PO DAILY [facility] Last Admin: 06/08/17 10:13 Dose: 25 mg Multivitamins/Minerals/Vitamin C (Tab-A-Vit -) 1 tab PO DAILY [facility] Last Admin: 06/08/17 10:13 Dose: 1 tab Nystatin (Nystop Powder -) 1 applic TP BID [facility] Last Admin: 06/08/17 10:21 Dose: 1 applic Olanzapine (Zyprexa -) 7.5 mg PO DAILY [facility] Last Admin: 06/08/17 10:16 Dose: 7.5 mg Ranitidine HCl (Zantac -) 150 mg PO BID [facility] Last Admin: 06/08/17 10:14 Dose: 150 mg Tamsulosin HCl (Flomax -) 0.4 mg PO DAILY@0830 [facility] Last Admin: 06/08/17 08:56 Dose: 0.4 mg Triamcinolone Acetonide (Aristocort 0.1% Lotion -) 1 applic TP BID [facility] Last Admin: 06/08/17 10:22 Dose: 1 applic - Objective Vital Signs: Vital Signs Temperature 97.9 F 06/08/17 04:00 Pulse Rate 67 06/08/17 04:00 Respiratory Rate 18 06/08/17 04:00 Blood Pressure 122/91 06/08/17 04:00 O2 Sat by Pulse Oximetry (%) 96 06/07/17 21:00 Constitutional: Yes: Anxious, Mild Distress HENT: Yes: Normocephalic Neck: Yes: Trachea Midline Cardiovascular: Yes: S1, S2 Respiratory: Yes: Regular, Diminished Gastrointestinal: Yes: Normal Bowel Sounds, Soft Genitourinary: Yes: Seay Present. 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 Code(s): D50.0 - Iron deficiency anemia secondary to blood loss (chronic); D50.0 - Iron deficiency anemia secondary to blood loss (chronic) (4) Dementia Code(s): F03.90 - UNSPECIFIED DEMENTIA WITHOUT BEHAVIORAL DISTURBANCE (5) HTN (hypertension) Code(s): I10 - ESSENTIAL (PRIMARY) HYPERTENSION (6) Urinary retention Code(s): R33.9 - RETENTION OF URINE, UNSPECIFIED Assessment/Plan This is a 86 year old gentleman with PMhx of CKD Stage 4 (baseline Cr ~2.5), CHF with preserved LVEF, BPH, Hypertension, Hyperlipidemia who presented from [place] with Abd pain and found to have Sepsis secondary to UTI with hypothermia Acute Renal failure superimposed on CKD4. The Azotemia is stable, and seems tend to settle at this level. Hypernatremia, Slowly resolving. Seay catheter was changed, draining clear yellow urine. Will monitor the Renal functions. Thank you. Will follow with you. Mary Mirza MD
[2017-06-08 12:49] VITALS: TEMP 98
--- NOTE | 2017-06-08 13:19 | DS ---
Physical Examination Vital Signs: Vital Signs Temperature 36.7 C 06/08/17 10:00 Pulse Rate 73 06/08/17 10:00 Respiratory Rate 20 06/08/17 10:00 Blood Pressure 123/91 06/08/17 10:00 O2 Sat by Pulse Oximetry (%) 97 06/08/17 09:00 Constitutional: Yes: Well Nourished, No Distress, Calm Cardiovascular: Yes: Regular Rate and Rhythm. No: Gallop, Murmur, Rub Respiratory: Yes: Regular, CTA Bilaterally. No: Rales, Rhonchi, Wheezes Gastrointestinal: Yes: Normal Bowel Sounds, Soft. No: Distention, Tenderness Extremities: Yes: Erythema Edema: No Labs: CBC, BMP 06/08/17 08:50 06/08/17 08:50 Discharge Summary Reason For Visit: UTI, SEPSIS, ACUTE KIDNEY INJURY Current Active Problems Acute kidney injury (Acute) Sepsis (Acute) UTI (urinary tract infection) (Acute) Hospital Course: (1) Sepsis Code(s): A41.9 - SEPSIS, UNSPECIFIED ORGANISM Qualifiers: Sepsis type: sepsis due to unspecified organism Qualified Code(s): A41.9 - Sepsis, unspecified organism; A41.9 - Sepsis, unspecified organism; A41.9 - Sepsis, unspecified organism (2) UTI (urinary tract infection) Code(s): N39.0 - URINARY TRACT INFECTION, SITE NOT SPECIFIED Qualifiers: Urinary tract infection type: site unspecified Hematuria presence: without hematuria Qualified Code(s): N39.0 - Urinary tract infection, site not specified; N39.0 - Urinary tract infection, site not specified; R31.9 - Hematuria, unspecified; R31.9 - Hematuria, unspecified (3) Acute on chronic renal failure Code(s): N17.9 - ACUTE KIDNEY FAILURE, UNSPECIFIED N18.9 - CHRONIC KIDNEY DISEASE, UNSPECIFIED (4) CAD (coronary artery disease) Code(s): I25.10 - ATHSCL HEART DISEASE OF [place] CORONARY ARTERY W/O ANG PCTRS (5) CHF (congestive heart failure) Code(s): I50.9 - HEART FAILURE, UNSPECIFIED Qualifiers: Congestive heart failure type: diastolic Congestive heart failure chronicity: chronic Qualified Code(s): I50.32 - Chronic diastolic ( congestive) heart failure; I50.32 - Chronic diastolic (congestive) heart failure ; I50.32 - Chronic diastolic (congestive) heart failure; I50.32 - Chronic diastolic (congestive) heart failure (6) Dementia Code(s): F03.90 - UNSPECIFIED DEMENTIA WITHOUT BEHAVIORAL DISTURBANCE (7) HTN (hypertension) Code(s): I10 - ESSENTIAL (PRIMARY) HYPERTENSION Mr Reynoso is an 86 year old male who comes in with sepsis secondary to UTI. He was admitted to the hospital and seen by ID. Urine cultures came back positive for pseudomonas. He was started on zosyn and tolerated it well. He finished a full course of this while here. He was also seen by nephrology for his acute on chronic kidney disease. He returned to baseline. He is now safe for discharge back to SNF. 31 minutes spent in preparation of this discharge Condition: Stable - Instructions Diet, Activity, Other Instructions: pureed diet. Up with assistance, further activity per PT at SNF Referrals: Cesario Montiel MD [Primary Care Provider] - Teja Mercedes MD [Staff Physician] - Zak Wylie MD [Staff Physician] - Disposition: [facility] F[facility] - Home Medications Comprehensive Discharge Medication List: Ambulatory Orders Acetaminophen 650 mg PO DAILY 05/31/17 Amlodipine Besylate [Norvasc -] 10 mg PO DAILY 05/31/17 Ascorbic Acid [Vitamin C] 500 mg PO BID 05/31/17 Docusate Sodium [Colace -] 100 mg PO DAILY 05/31/17 Escitalopram Oxalate [Lexapro -] 20 mg PO DAILY 05/31/17 Ferrous Sulfate [Feosol] 325 mg PO BID 05/31/17 Krill Oil/[place]-3/Dha/Epa [[place]-3 Krill Oil Softgel] 1 each PO DAILY 05/31/17 Metoprolol Succinate [Toprol XL -] 25 mg PO DAILY 05/31/17 Multivitamin [One Daily] 1 each PO DAILY 05/31/17 Nystatin Powder [Nystop Powder -] 15 gm TP BID 05/31/17 Olanzapine [Zyprexa -] 7.5 mg PO DAILY 05/31/17 Perphenazine [Trilafon -] 0.5 mg PO DAILY 05/31/17 Ranitidine [Zantac -] 150 mg PO BID 05/31/17 Tamsulosin HCl [Flomax -] 0.4 mg PO DAILY 05/31/17 Triamcinolone 0.1% Lotion [Aristocort 0.1% Lotion -] 1 applic TP BID 05/31/17 Vits A and D/White Pet/Lanolin [Vitamin A & D Grx Ointment] 60 gm TP BID
--- NOTE | 2017-06-08 13:35 | PN ---
Progress Note, Physician History of Present Illness: doing well no issues off of abx - Current Medication List Current Medications: Active Medications Acetaminophen (Tylenol -) 650 mg PO Q6HPO PRN PRN Reason: FEVER OR PAIN Albuterol/Ipratropium (Duoneb -) 1 amp NEB Q6H PRN Last Admin: 06/03/17 12:29 Dose: 1 amp Amlodipine Besylate (Norvasc -) 10 mg PO DAILY [facility] Last Admin: 06/08/17 10:13 Dose: 10 mg Ascorbic Acid (Vitamin C -) 500 mg PO BID [facility] Last Admin: 06/08/17 10:14 Dose: 500 mg Emollient Ointment (Lanolin Topical Ointment -) 1 applic TP BID [facility] Last Admin: 06/08/17 10:21 Dose: 1 applic Escitalopram Oxalate (Lexapro -) 20 mg PO DAILY [facility] Last Admin: 06/08/17 10:13 Dose: 20 mg Ferrous Sulfate (Feosol -) 325 mg PO BID [facility] Last Admin: 06/08/17 10:12 Dose: 325 mg Heparin Sodium (Porcine) (Heparin -) 5,000 unit SQ BID [facility] Last Admin: 06/08/17 10:12 Dose: 5,000 unit Metoprolol Succinate (Toprol Xl -) 25 mg PO DAILY [facility] Last Admin: 06/08/17 10:13 Dose: 25 mg Multivitamins/Minerals/Vitamin C (Tab-A-Vit -) 1 tab PO DAILY [facility] Last Admin: 06/08/17 10:13 Dose: 1 tab Nystatin (Nystop Powder -) 1 applic TP BID [facility] Last Admin: 06/08/17 10:21 Dose: 1 applic Olanzapine (Zyprexa -) 7.5 mg PO DAILY [facility] Last Admin: 06/08/17 10:16 Dose: 7.5 mg Ranitidine HCl (Zantac -) 150 mg PO BID [facility] Last Admin: 06/08/17 10:14 Dose: 150 mg Tamsulosin HCl (Flomax -) 0.4 mg PO DAILY@0830 [facility] Last Admin: 06/08/17 08:56 Dose: 0.4 mg Triamcinolone Acetonide (Aristocort 0.1% Lotion -) 1 applic TP BID [facility] Last Admin: 06/08/17 10:22 Dose: 1 applic - Objective Vital Signs: Vital Signs Temperature 98.0 F 06/08/17 10:00 Pulse Rate 73 06/08/17 10:00 Respiratory Rate 20 06/08/17 10:00 Blood Pressure 123/91 06/08/17 10:00 O2 Sat by Pulse Oximetry (%) 97 06/08/17 09:00 Constitutional: Yes: No Distress, Calm Cardiovascular: Yes: Regular Rate and Rhythm Respiratory: Yes: Regular, CTA Bilaterally Gastrointestinal: Yes: Normal Bowel Sounds, Soft Musculoskeletal: Yes: WNL Extremities: Yes: Other Neurological: Yes: Alert, Other (dementia) Psychiatric: Yes: Other Labs: CBC, BMP 06/08/17 08:50 06/08/17 08:50 INR, PTT INR 1.07 (0.82-1.09) 05/31/17 18:00 Assessment/Plan Problem List - Problems (1) Sepsis Code(s): A41.9 - SEPSIS, UNSPECIFIED ORGANISM Qualifiers: Sepsis type: sepsis due to unspecified organism Qualified Code(s): A41.9 - Sepsis, unspecified organism; A41.9 - Sepsis, unspecified organism; A41.9 - Sepsis, unspecified organism (2) UTI (urinary tract infection) Code(s): N39.0 - URINARY TRACT INFECTION, SITE NOT SPECIFIED Qualifiers: Urinary tract infection type: site unspecified Hematuria presence: without hematuria Qualified Code(s): N39.0 - Urinary tract infection, site not specified; N39.0 - Urinary tract infection, site not specified; R31.9 - Hematuria, unspecified; R31.9 - Hematuria, unspecified (3) Acute on chronic renal failure Code(s): N17.9 - ACUTE KIDNEY FAILURE, UNSPECIFIED N18.9 - CHRONIC KIDNEY DISEASE, UNSPECIFIED (4) CAD (coronary artery disease) Code(s): I25.10 - ATHSCL HEART DISEASE OF [place] CORONARY ARTERY W/O ANG PCTRS (5) CHF (congestive heart failure) Code(s): I50.9 - HEART FAILURE, UNSPECIFIED Qualifiers: Congestive heart failure type: diastolic Congestive heart failure chronicity: chronic Qualified Code(s): I50.32 - Chronic diastolic ( congestive) heart failure; I50.32 - Chronic diastolic (congestive) heart failure ; I50.32 - Chronic diastolic (congestive) heart failure; I50.32 - Chronic diastolic (congestive) heart failure (6) Dementia Code(s): F03.90 - UNSPECIFIED DEMENTIA WITHOUT BEHAVIORAL DISTURBANCE (7) HTN (hypertension) Code(s): I10 - ESSENTIAL (PRIMARY) HYPERTENSION patient well known to me from last admission coming in with sepsis and hypothermia plan continue and finish oral vanco for 14 days stable off of iv abx rest as per primary team
[2017-06-08 15:26] VITALS: BP 100/53; PULSE 79
== END 2017-06-08 15:55 | DRG 872 ==
LOC: JER 15:52 → JERBED 22:06 → UNDOADMIN 06-01 00:42 → JERBED 06-01 00:42 → J8W 06-01 14:51
PROVIDERS: ADMIT Internal Medicine; ATTEND Internal Medicine
PROC: 30233N1 Transfusion of Nonautologous Red Blood Cells into Peripheral Vein, Percutaneous Approach (ICD-10-PCS; principal; 2017-06-02)
DX: A41.9 Sepsis, unspecified organism (principal); N17.9 Acute kidney failure, unspecified; I13.0 Hypertensive heart and chronic kidney disease with heart failure and stage 1 through stage 4 chronic kidney disease, or unspecified chronic kidney disease; I50.32 Chronic diastolic (congestive) heart failure; N18.4 Chronic kidney disease, stage 4 (severe); N39.0 Urinary tract infection, site not specified; E87.0 Hyperosmolality and hypernatremia; A04.72 Enterocolitis due to Clostridium difficile, not specified as recurrent; I25.10 Atherosclerotic heart disease of native coronary artery without angina pectoris; F03.90 Unspecified dementia, unspecified severity, without behavioral disturbance, psychotic disturbance, mood disturbance, and anxiety; D64.9 Anemia, unspecified; R33.9 Retention of urine, unspecified; E78.5 Hyperlipidemia, unspecified; F25.8 Other schizoaffective disorders
CPT/HCPCS: 36415; 36430; 71010-TC; 80048; 80053; 81003; 81015; 82436; 82550; 82570; 82728; 82803; 83540; 83550; 83605; 83735; 84100; 84133; 84300; 84484; 85025; 85610; 85730; 86850; 86900; 86901; 86922; 87040; 87086; 87186; 93005; 93010; 94640; 99285-25; J1644; P9038; P9058

== ENCOUNTER 2017-06-14 09:28 | Inpatient (IN) | payer OTHER ==
[2017-06-14 09:48] VITALS: BMI 25.8
[2017-06-14] MEDS ORDERED: ALBUTEROL SO4 2.5/IPRATROPIUM 0.5 INH SOL 3 ML VIAL.NEB. NEB ONE (10:18)
[2017-06-14 10:39] LABS: ARTERIAL BLD GAS O2 SATURATION 98.5 % (90-98.9); ARTERIAL BLOOD GAS BASE EXCESS -5.3 meq/l (-2-2); ARTERIAL BLOOD GAS HCO3 20.3 meq/L (22-26); ARTERIAL BLOOD GAS pH 7.29 (7.35-7.45)
[2017-06-14 10:42] LABS: ALLENS TEST POSITIVE; ART PUNCT SITE RIGHT RADIAL; METHEMOGLOBIN 0.2 % (0.4-1.5); PT. ON O2? YES
[2017-06-14 10:43] LABS: LPM/O2% 7; TYPE OF O2 AEROSOL TX
[2017-06-14] MEDS ORDERED: VANCOMYCIN 1 GRAM (PRE-DOCKED) 1,000 MG/250 ML BAG IVPB ONE (10:56)
[2017-06-14] MEDS ORDERED: PIPERACILLIN/TAZOB 4.5 GM/100 ML PRE-DOCKED IVPB ONE (10:57)
[2017-06-14 11:14] LABS: BASOPHIL 0.2 % (0-2.0); MCHC 32.5 g/dl (32.0-35.9); MEAN CELL VOLUME 89.2 fl (80-96); MEAN PLT VOLUME 8.8 fl (7.5-11.1); NEUTROPHILS 93.4 % (42.8-82.8); PLATELET COUNT 203 K/MM3 (134-434); RDW 16.4 % (11.9-15.9); WHITE BLOOD COUNT 11.7 K/mm3 (4.0-10.0)
[2017-06-14 11:15] LABS: URINE APPEARANCE TURBID; URINE BILIRUBIN NEGATIVE (NEGATIVE); URINE BLOOD 3+ (NEGATIVE); URINE GLUCOSE (UA) 1+ (NEGATIVE); URINE KETONE NEGATIVE (NEGATIVE); URINE NITRITE NEGATIVE (NEGATIVE); URINE UROBILINOGEN NEGATIVE mg/dL (0.2-1.0)
[2017-06-14] MEDS ORDERED: VANCOMYCIN 1 GRAM (PRE-DOCKED) 250 ML IVPB ONE (11:16)
[2017-06-14] MEDS ORDERED: PIPERACILLIN/TAZOB 4.5 GM 100 ML IVPB ONE (11:16)
--- NOTE | 2017-06-14 11:21 | PDOC ---
History of Present Illness - General Chief Complaint: Shortness of Breath Stated Complaint: SHORTNESS OF BREATH Time Seen by Provider: 06/14/17 09:58 - History of Present Illness Initial Comments: 06/14/17 11:09 "86 year old male brought via EMS, with a significant past medical history of dementia, CHF, anemia, BPH, HTN, HLD, who presents to the emergency department from [facility] sent for SOB. Patient was recently admitted to this hospital for sepsis. He arrived with a rectal temp of 95.9. Patient is nonverbal while in the ED. According to [place] records the patient ripped out his harris today and is more altered than usual. While in ER, pt had runs of severe bradycardia, HR going down to 20-30 for several seconds before returning to baseline HR of 90s. BP has been stable at 90s systolic. Patients legal guardian was contacted multiple times to confirm DNR/DNI status , but the guardian could not be reached. " Past History - Past Medical History Allergies/Adverse Reactions: Allergies Allergy/AdvReac Type Severity Reaction Status Date / Time No Known Drug Allergies Allergy Verified 06/14/17 09:45 Home Medications: Ambulatory Orders Acetaminophen 650 mg PO DAILY 05/31/17 Amlodipine Besylate [Norvasc -] 10 mg PO DAILY 05/31/17 Ascorbic Acid [Vitamin C] 500 mg PO BID 05/31/17 Docusate Sodium [Colace -] 100 mg PO DAILY 05/31/17 Escitalopram Oxalate [Lexapro -] 20 mg PO DAILY 05/31/17 Ferrous Sulfate [Feosol] 325 mg PO BID 05/31/17 Krill Oil/[place]-3/Dha/Epa [[place]-3 Krill Oil Softgel] 1 each PO DAILY 05/31/17 Metoprolol Succinate [Toprol XL -] 25 mg PO DAILY 05/31/17 Multivitamin [One Daily] 1 each PO DAILY 05/31/17 Nystatin Powder [Nystop Powder -] 15 gm TP BID 05/31/17 Olanzapine [Zyprexa -] 7.5 mg PO DAILY 05/31/17 Perphenazine [Trilafon -] 0.5 mg PO DAILY 05/31/17 Ranitidine [Zantac -] 150 mg PO BID 05/31/17 Tamsulosin HCl [Flomax -] 0.4 mg PO DAILY 05/31/17 Triamcinolone 0.1% Lotion [Aristocort 0.1% Lotion -] 1 applic TP BID 05/31/17 Vits A and D/White Pet/Lanolin [Vitamin A & D Grx Ointment] 60 gm TP BID Albuterol 0.083% Nebulizer Keisha [Ventolin 0.083%] 1 neb NEB Q4H PRN 06/14/17 Amoxicillin/Potassium Clav [Amox-Clav 500-125 mg Tablet] 1 each PO BID 06/14/17 Prednisone [Deltasone] 40 mg PO DAILY 06/14/17 Anemia: Yes Asthma: No Cancer: No Cardiac Disorders: Yes (CHF) CVA: No COPD: No CHF: No Dementia: No Diabetes: No GI Disorders: Yes (GI BLD-TRANSFUSED) Disorders: Yes (BPH) HTN: Yes Hypercholesterolemia: Yes Liver Disease: No Psychiatric Problems: Yes (schizophrenia, bipolar, psychosis) Seizures: No Thyroid Disease: No - Surgical History Abdominal Surgery: No Appendectomy: No Cardiac Surgery: No Cholecystectomy: Yes Lung Surgery: No Neurologic Surgery: No Orthopedic Surgery: No - Suicide/Smoking/Psychosocial Hx Smoking History: Unknown if ever smoked Have you smoked in the past 12 months: No Number of Cigarettes Smoked Daily: 15 If you are a former smoker, when did you quit?: does not remember Information on smoking cessation initiated: No 'Breaking Loose' booklet given: 01/26/17 Hx Alcohol Use: No Drug/Substance Use Hx: No Substance Use Type: None Hx Substance Use Treatment: No Review of Systems - Review of Systems Able to Perform ROS?: No *Physical Exam - Vital Signs Last Vital Signs Temp Pulse Resp BP Pulse Ox 96.0 F L 70 10 L 92/57 95 06/14/17 10:37 06/14/17 10:37 06/14/17 10:37 06/14/17 10:37 06/14/17 10:37 - Physical Exam Comments: 06/14/17 11:11 "GENERAL: Awake, in no acute distress HEAD: No signs of trauma EYES: PERRLA, EOMI, sclera anicteric, conjunctiva clear ENT: Auricles normal inspection, hearing grossly normal, nares patent, oropharynx clear without exudates. Moist mucosa NECK: Nontender, no stepoffs, Normal ROM, supple, no lymphadenopathy, JVD, or masses LUNGS: Breath sounds equal, diffuse rhonchi with minimal expiratory wheezing HEART: Regular rate and rhythm, normal S1 and S2, no murmurs, rubs or gallops ABDOMEN: Soft, nontender, normoactive bowel sounds. No guarding, no rebound. No masses EXTREMITIES: Normal range of motion, no edema. No clubbing or cyanosis. No cords , erythema, or tenderness SKIN: Warm, Dry, periumbilical ecchymosis " Heart Score/ECG Review - ECG Impressions Comment:: 06/14/17 11:12 atrial fibrillation with slow VR ED Treatment Course - LABORATORY CBC & Chemistry Diagram: 06/14/17 11:00 06/14/17 11:00 - ADDITIONAL ORDERS Additional order review: Laboratory Results 06/14/17 10:25 Puncture Site Right radial ABG pH 7.29 L ABG pCO2 at Pt Temp 43.3 ABG pO2 at Pt Temp 117.0 H ABG HCO3 20.3 L ABG O2 Sat (Measured) 98.5 ABG O2 Content 11.6 L ABG Base Excess -5.3 L Eber Test Positive Carboxyhemoglobin 1.6 Methemoglobin 0.2 L O2 Delivery Device Aerosol tx Oxygen Flow Rate 7 - RADIOLOGY Radiology Studies Ordered: Category Date Time Status CHEST X-RAY PORTABLE* [RAD] Stat Radiology 06/14/17 10:31 Completed Medical Decision Making - Medical Decision Making 06/14/17 11:12 86 M sent from [place] for respiratory distress. On exam in ER, pt mildly tachypneic but in no significant distress. During eval, pt found to have runs of transient bradycardia with HR in 20s. Chart review shows that pt had intermittent episodes of bradycardia during his last admission. Pt was evaluated by cardiology, but no pacemaker was placed. Pt's symptoms today are likely related to his cardiac disease. CXR shows pulmonary edema. Pt has reduced cardiac output at baseline 2/2 CHF, likely exacerbated by his severe bradycardia. EKG shows afib with slow VR. Pt is on CCB and B hasmukh but no indication for reversal at this time as pt's bradycardia is self-limiting. Will do full infectious work up in addition to cardiac work up given hypotension and hypothermia. - Labs - CXR, UA, cultures - Pacer pads placed 06/14/17 13:05 Legal guardian present. Pt made DNR/DNI. Spoke with Dr. Horn, ICU attending, who agrees pt is appropriate for floor tele bed, as we will not be pursuing any aggressive measures. Pt admitted to Dr. Diaz. Case discussed in detail with admitting physician including history, physical exam and ancillary studies. Admitting physician has assumed care for the patient and will follow all pending diagnostics and complete the evaluation and treatment. *DC/Admit/Observation/Transfer Diagnosis at time of Disposition: Bradycardia - Discharge Dispostion Admit: Yes - Attestations Physician Attestion: 06/14/17 13:09 I, Dr. Juan Francisco Olguin MD, attest that this document has been prepared under my direction and personally reviewed by me in its entirety. I further attest, that it accurately reflects all work, treatment, procedures and medical decision -making performed by me.
[2017-06-14 11:31] LABS: URINE PROTEIN 2+ (NEGATIVE)
[2017-06-14 11:32] LABS: URINE COLOR PINK
[2017-06-14 11:34] LABS: INR 1.01 (0.82-1.09); PROTHROMBIN TIME (PATIENT) 11.4 SEC (9.98-11.88); URINE MUCUS RARE; URINE RBC 295 /hpf (0-3); URINE WBC 957 /hpf (3-5)
[2017-06-14 11:37] LABS: ACTIVATED PTT 33.9 SECONDS (26.9-34.4)
[2017-06-14 11:41] LABS: ALBUMIN 2.4 g/dl (3.4-5.0); ANION GAP 11 (8-16); BILIRUBIN,TOTAL 0.2 mg/dL (0.2-1.0); CALCIUM 8.6 mg/dL (8.5-10.1); CO2 21 mmol/L (21-32); CREATININE 3.8 mg/dL (0.7-1.3); GLUCOSE,RANDOM 101 mg/dL (74-106); SGOT/AST 13 U/L (15-37); SGPT/ALT 29 U/L (12-78); TOT PROT 5.6 g/dl (6.4-8.2)
[2017-06-14 11:45] LABS: CPK 132 IU/L (39-308); TROPONIN I < 0.02 ng/ml (0.00-0.05)
[2017-06-14 11:50] LABS: ALK PHOS 152 U/L (45-117)
[2017-06-14 14:04] LABS: URINE LEUK ESTERASE 1+ (NEGATIVE)
[2017-06-14] MEDS ORDERED: ACETAMINOPHEN 325 MG TABLET (FP) PO PRN (15:08)
--- NOTE | 2017-06-14 15:12 | HP ---
Admitting History and Physical - Primary Care Physician PCP: Cesario Montiel - Admission Chief Complaint: Unable to obtain History of Present Illness: Mr Reynoso is an 86 year old male who was sent in from [facility] with worsening confusion. Unable to obtain history from patient so history comes from ED attending. 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 However this morning he was more agitated than normal and pulled out his harris. He also appeared more lethargic. Temperature was taken and he was found to be hypothermic. He was sent here for further evaluation. Upon seeing patient is awake but obtunded and unable to give any history. History Source: Medical Record Limitations to Obtaining History: Clinical Condition, Dementia - Past Medical History [employer]: Yes: Dementia Cardiovascular: Yes: CAD, CHF, HTN, Hyperlipdemia, Other (pad) Gastrointestinal: Yes: GI Bleed (from avm 3 yrs ago) Renal/: Yes: Renal Failure, BPH, Hematuria Heme/Onc: Yes: Anemia Psych: Yes: Depression, Schizophrenia - Past Surgical History Past Surgical History: Yes: Cholecystectomy, Colonoscopy (10/2013 divosis, cecal avm cauterized, sm int hemor), Tonsillectomy, Upper Endoscopy (11/03/13 gastric fundic polyps. duo bx neg) - Smoking History Smoking history: Unknown if ever smoked Have you smoked in the past 12 months: No Aproximately how many cigarettes per day: 15 If you are a former smoker, when did you quit?: does not remember - Alcohol/Substance Use Hx Alcohol Use: No - Social History Usual Living Arrangement: Yes: Alf ADL: Support Services History of Recent Travel: No Home Medications - Allergies Allergies/Adverse Reactions: Allergies Allergy/AdvReac Type Severity Reaction Status Date / Time No Known Drug Allergies Allergy Verified 06/14/17 09:45 - Home Medications Home Medications: Ambulatory Orders Acetaminophen 650 mg PO DAILY 05/31/17 Amlodipine Besylate [Norvasc -] 10 mg PO DAILY 05/31/17 Ascorbic Acid [Vitamin C] 500 mg PO BID 05/31/17 Docusate Sodium [Colace -] 100 mg PO DAILY 05/31/17 Escitalopram Oxalate [Lexapro -] 20 mg PO DAILY 05/31/17 Ferrous Sulfate [Feosol] 325 mg PO BID 05/31/17 Krill Oil/[place]-3/Dha/Epa [[place]-3 Krill Oil Softgel] 1 each PO DAILY 05/31/17 Metoprolol Succinate [Toprol XL -] 25 mg PO DAILY 05/31/17 Multivitamin [One Daily] 1 each PO DAILY 05/31/17 Nystatin Powder [Nystop Powder -] 15 gm TP BID 05/31/17 Olanzapine [Zyprexa -] 7.5 mg PO DAILY 05/31/17 Perphenazine [Trilafon -] 0.5 mg PO DAILY 05/31/17 Ranitidine [Zantac -] 150 mg PO BID 05/31/17 Tamsulosin HCl [Flomax -] 0.4 mg PO DAILY 05/31/17 Triamcinolone 0.1% Lotion [Aristocort 0.1% Lotion -] 1 applic TP BID 05/31/17 Vits A and D/White Pet/Lanolin [Vitamin A & D Grx Ointment] 60 gm TP BID Albuterol 0.083% Nebulizer Keisha [Ventolin 0.083%] 1 neb NEB Q4H PRN 06/14/17 Amoxicillin/Potassium Clav [Amox-Clav 500-125 mg Tablet] 1 each PO BID 06/14/17 Prednisone [Deltasone] 40 mg PO DAILY 06/14/17 Family Disease History - Family Disease History Family History: Unable to Obtain Review of Systems Unable to obtain ROS, reason: dementia, obtunded Physical Examination Vital Signs: Vital Signs Temperature 36.0 C L 06/14/17 14:13 Pulse Rate 81 06/14/17 14:13 Respiratory Rate 18 06/14/17 14:13 Blood Pressure 102/61 06/14/17 14:13 O2 Sat by Pulse Oximetry (%) 97 06/14/17 14:13 Constitutional: Yes: Diaphoresis, Pallor, Other (obtunded, moaning) Eyes: Yes: Conjunctiva Clear, PERRL Cardiovascular: Yes: Bradycardia. No: Gallop, Murmur, Rub Respiratory: Yes: Regular, CTA Bilaterally. No: Rales, Rhonchi, Wheezes Gastrointestinal: Yes: Normal Bowel Sounds, Soft. No: Distention, Tenderness Extremities: Yes: Erythema (RLE, baseline) Edema: No Labs: CBC, BMP 06/14/17 11:00 06/14/17 11:00 Imaging - Results Chest X-ray: Report Reviewed, Image Reviewed EKG: Image Reviewed Problem List - Problems (1) Sepsis Assessment/Plan: -patient presents with septic like picture -patient with multiple admissions for sepsis -admit to telemetry -hydrate with IVF -received vancomycin and zosyn in the ED Code(s): A41.9 - SEPSIS, UNSPECIFIED ORGANISM Qualifiers: Sepsis type: sepsis due to unspecified organism Qualified Code(s): A41.9 - Sepsis, unspecified organism; A41.9 - Sepsis, unspecified organism; A41.9 - Sepsis, unspecified organism (2) Metabolic encephalopathy Assessment/Plan: -mental status depressed -secondary to sepsis and bradycardia -treat infection -cardiology consulted for bradycardia -monitor for improvement Code(s): G93.41 - METABOLIC ENCEPHALOPATHY (3) Bradycardia Assessment/Plan: -patient with temporary bradycardia, goes into 20s -becomes symptomatic with decreased heart rate -patient DNR so will admit to telemetry over ICU -cardiology consulted -will hold metoprolol and perphenazine as both can cause bradycardia and perphenazine can cause arrhythmias Code(s): R00.1 - BRADYCARDIA, UNSPECIFIED (4) UTI (urinary tract infection) Assessment/Plan: -urinalysis showing UTI -case d/w ID -hold on vancomycin currently, will place on zosyn Code(s): N39.0 - URINARY TRACT INFECTION, SITE NOT SPECIFIED Qualifiers: Urinary tract infection type: site unspecified Hematuria presence: without hematuria Qualified Code(s): N39.0 - Urinary tract infection, site not specified; N39.0 - Urinary tract infection, site not specified; R31.9 - Hematuria, unspecified; R31.9 - Hematuria, unspecified (5) Acute on chronic renal failure Assessment/Plan: -suspect secondary to hypotension from sepsis and bradycardia -hydrate with IVF -hold diuretics -consult nephrology Code(s): N17.9 - ACUTE KIDNEY FAILURE, UNSPECIFIED N18.9 - CHRONIC KIDNEY DISEASE, UNSPECIFIED (6) Hyperkalemia Assessment/Plan: -will hydrate -monitor -nephrology consult Code(s): E87.5 - HYPERKALEMIA (7) Anemia Assessment/Plan: -above baseline -continue iron Code(s): D64.9 - ANEMIA, UNSPECIFIED Qualifiers: 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 Code(s): D50.0 - Iron deficiency anemia secondary to blood loss (chronic); D50.0 - Iron deficiency anemia secondary to blood loss (chronic) (8) CAD (coronary artery disease) Assessment/Plan: -may have stress induced troponin elevation secondary to sepsis -cardiology consulted Code(s): I25.10 - ATHSCL HEART DISEASE OF [place] CORONARY ARTERY W/O ANG PCTRS (9) CHF (congestive heart failure) Assessment/Plan: -not in exacerbation -hydration with close monitoring as can become fluid overloaded Code(s): I50.9 - HEART FAILURE, UNSPECIFIED Qualifiers: Congestive heart failure type: diastolic Congestive heart failure chronicity: chronic Qualified Code(s): I50.32 - Chronic diastolic ( congestive) heart failure; I50.32 - Chronic diastolic (congestive) heart failure ; I50.32 - Chronic diastolic (congestive) heart failure; I50.32 - Chronic diastolic (congestive) heart failure (10) Dementia Assessment/Plan: -exacerbated by sepsis -continue olanzapine -holding perphenazine as above Code(s): F03.90 - UNSPECIFIED DEMENTIA WITHOUT BEHAVIORAL DISTURBANCE (11) HTN (hypertension) Assessment/Plan: -holding metoprolol -amlodipine with hold parameters -currently hypotensive secondary to shock Code(s): I10 - ESSENTIAL (PRIMARY) HYPERTENSION Assessment/Plan Very poor prognosis 45 minutes spent in critical care time
--- NOTE | 2017-06-14 15:57 | CON.ID ---
Consult Consult Specialty:: infectious diseases Referred by:: Reason for Consultation:: sepsis,uti - History of Present Illness History of Present Illness: 86 year old male who was sent in from [facility] with worsening confusion. 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 However this morning he was more agitated than normal and pulled out his harris. He also appeared more lethargic. Temperature was taken and he was found to be hypothermic. He was sent here for further evaluation. 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 duo bx neg) - Alcohol/Substance Use Hx Alcohol Use: No - Smoking History Smoking history: Unknown if ever smoked Have you smoked in the past 12 months: No Aproximately how many cigarettes per day: 15 If you are a former smoker, when did you quit?: does not remember - Social History Usual Living Arrangement: Alone ADL: Support Services History of Recent Travel: No Home Medications - Allergies Allergies/Adverse Reactions: Allergies Allergy/AdvReac Type Severity Reaction Status Date / Time No Known Drug Allergies Allergy Verified 06/14/17 09:45 - Home Medications Home Medications: Ambulatory Orders Acetaminophen 650 mg PO DAILY 05/31/17 Amlodipine Besylate [Norvasc -] 10 mg PO DAILY 05/31/17 Ascorbic Acid [Vitamin C] 500 mg PO BID 05/31/17 Docusate Sodium [Colace -] 100 mg PO DAILY 05/31/17 Escitalopram Oxalate [Lexapro -] 20 mg PO DAILY 05/31/17 Ferrous Sulfate [Feosol] 325 mg PO BID 05/31/17 Krill Oil/[place]-3/Dha/Epa [[place]old-3 Krill Oil Softgel] 1 each PO DAILY 05/31/17 Metoprolol Succinate [Toprol XL -] 25 mg PO DAILY 05/31/17 Multivitamin [One Daily] 1 each PO DAILY 05/31/17 Nystatin Powder [Nystop Powder -] 15 gm TP BID 05/31/17 Olanzapine [Zyprexa -] 7.5 mg PO DAILY 05/31/17 Perphenazine [Trilafon -] 0.5 mg PO DAILY 05/31/17 Ranitidine [Zantac -] 150 mg PO BID 05/31/17 Tamsulosin HCl [Flomax -] 0.4 mg PO DAILY 05/31/17 Triamcinolone 0.1% Lotion [Aristocort 0.1% Lotion -] 1 applic TP BID 05/31/17 Vits A and D/White Pet/Lanolin [Vitamin A & D Grx Ointment] 60 gm TP BID Albuterol 0.083% Nebulizer Keisha [Ventolin 0.083%] 1 neb NEB Q4H PRN 06/14/17 Amoxicillin/Potassium Clav [Amox-Clav 500-125 mg Tablet] 1 each PO BID 06/14/17 Prednisone [Deltasone] 40 mg PO DAILY 06/14/17 Review of Systems Unable to obtain ROS, reason: unable to obtain Physical Exam Vital Signs: Vital Signs Temperature 96.8 F L 06/14/17 14:13 Pulse Rate 81 06/14/17 14:13 Respiratory Rate 18 06/14/17 14:13 Blood Pressure 102/61 06/14/17 14:13 O2 Sat by Pulse Oximetry (%) 97 06/14/17 14:13 Constitutional: Yes: Calm Eyes: Yes: Conjunctiva Clear Cardiovascular: Yes: Regular Rate and Rhythm Respiratory: Yes: Regular, CTA Bilaterally, On Nasal O2 Gastrointestinal: Yes: Normal Bowel Sounds, Soft Renal/: Yes: Harris Present Musculoskeletal: Yes: Other (rt leg discoloration) Extremities: Yes: Other Neurological: Yes: Alert, Other Psychiatric: Yes: Other Imaging - Results Chest X-ray: Report Reviewed, Image Reviewed Assessment/Plan Problem List - Problems (1) Sepsis Code(s): A41.9 - SEPSIS, UNSPECIFIED ORGANISM Qualifiers: Sepsis type: sepsis due to unspecified organism Qualified Code(s): A41.9 - Sepsis, unspecified organism; A41.9 - Sepsis, unspecified organism; A41.9 - Sepsis, unspecified organism (2) Metabolic encephalopathy Code(s): G93.41 - METABOLIC ENCEPHALOPATHY (3) Bradycardia Code(s): R00.1 - BRADYCARDIA, UNSPECIFIED (4) UTI (urinary tract infection) Code(s): N39.0 - URINARY TRACT INFECTION, SITE NOT SPECIFIED Qualifiers: Urinary tract infection type: site unspecified Hematuria presence: without hematuria Qualified Code(s): N39.0 - Urinary tract infection, site not specified; N39.0 - Urinary tract infection, site not specified; R31.9 - Hematuria, unspecified; R31.9 - Hematuria, unspecified (5) Acute on chronic renal failure Code(s): N17.9 - ACUTE KIDNEY FAILURE, UNSPECIFIED N18.9 - CHRONIC KIDNEY DISEASE, UNSPECIFIED (6) Hyperkalemia Code(s): E87.5 - HYPERKALEMIA (7) Anemia Code(s): D64.9 - ANEMIA, UNSPECIFIED Qualifiers: 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 Code(s): D50.0 - Iron deficiency anemia secondary to blood loss (chronic); D50.0 - Iron deficiency anemia secondary to blood loss (chronic) (8) CAD (coronary artery disease) Code(s): I25.10 - ATHSCL HEART DISEASE OF [place] CORONARY ARTERY W/O ANG PCTRS (9) CHF (congestive heart failure) Code(s): I50.9 - HEART FAILURE, UNSPECIFIED Qualifiers: Congestive heart failure type: diastolic Congestive heart failure chronicity: chronic Qualified Code(s): I50.32 - Chronic diastolic ( congestive) heart failure; I50.32 - Chronic diastolic (congestive) heart failure ; I50.32 - Chronic diastolic (congestive) heart failure; I50.32 - Chronic diastolic (congestive) heart failure (10) Dementia Code(s): F03.90 - UNSPECIFIED DEMENTIA WITHOUT BEHAVIORAL DISTURBANCE (11) HTN (hypertension) Code(s): I10 - ESSENTIAL (PRIMARY) HYPERTENSION patient received vanco and zosyn plan we will continue abx await for all cx to be back close monitoring rest s per primary team
[2017-06-14] MEDS ORDERED: SODIUM POLYSTYRENE SULFONATE 15 GM/60 ML BOTTLE PO ONE ×2 (16:09→18:30)
--- NOTE | 2017-06-14 17:01 | EKG ---
Test Reason : Blood Pressure : / mmHG Vent. Rate : 065 BPM Atrial Rate : 071 BPM P-R Int : 000 ms QRS Dur : 114 ms QT Int : 434 ms P-R-T Axes : 000 -28 004 degrees QTc Int : 451 ms ATRIAL FIBRILLATION INCOMPLETE LEFT BUNDLE BRANCH BLOCK ABNORMAL ECG WHEN COMPARED WITH ECG OF 31-MAY-2017 16:15, ATRIAL FIBRILLATION HAS REPLACED SINUS RHYTHM INCOMPLETE LEFT BUNDLE BRANCH BLOCK IS NOW PRESENT Confirmed by SUSANNAH NASH, NELLIE ([id number]) on 06/14/2017 5:01:06 PM Referred By: Confirmed By:NELLIE DAVALOS MD
[2017-06-14] MEDS: SODIUM CHLORIDE 1,000 ML IV SCH (17:30)
[2017-06-14] MEDS: PIPERACILLIN/TAZOB 2.25 GM 50 ML IVPB SCH (17:31)
[2017-06-14] MEDS ORDERED: PATIENT'S OWN MEDICATION (NON-FORMULARY) (Ferrous Sulfate [Feosol] 325 MG) PO SCH (22:00)
[2017-06-14] MEDS ORDERED: PATIENT'S OWN MEDICATION (NON-FORMULARY) (Ascorbic Acid [Vitamin C] 500 MG) PO SCH (22:00)
[2017-06-14 22:10] LABS: SODIUM,RANDOM URINE 22 MMOL/L
[2017-06-14] MEDS: FERROUS SO4 325 MG TABLET (FP) PO SCH (23:21)
[2017-06-14] MEDS: RANITIDINE HCL 150 MG TABLET (FP) PO SCH (23:21)
[2017-06-14] MEDS: HEPARIN NA (PORCINE) 5,000 UNITS/ML 1ML VIAL SQ SCH (23:21)
[2017-06-14] MEDS: ASCORBIC ACID 500 MG TABLET (FP) PO SCH (23:21)
[2017-06-14] MEDS ORDERED: PT OWN MED DRAWER 7, Y5N ONE (23:23)
[2017-06-14] MEDS: NYSTATIN POWDER 100,000 UNITS/GM - 15 GM TOPICAL POWDER TP SCH (23:28)
[2017-06-14] MEDS: TRIAMCINOLONE ACET 0.1% 60 ML LOTION TP SCH (23:28)
[2017-06-14] MEDS: LANOLIN (EMOLL) 30 GM TUBE TP SCH (23:28)
[2017-06-15] MEDS: PIPERACILLIN/TAZOB 2.25 GM 50 ML IVPB SCH ×3 (02:09→17:09)
[2017-06-15 07:09] LABS: BASOPHIL 0.8 % (0-2.0); EOSINOPHIL 0.1 % (0-4.5); MCH 29.4 pg (25.7-33.7); MCHC 33.4 g/dl (32.0-35.9); MEAN CELL VOLUME 88.3 fl (80-96); MEAN PLT VOLUME 8.8 fl (7.5-11.1); NEUTROPHILS 89.4 % (42.8-82.8); PLATELET COUNT 189 K/MM3 (134-434); RDW 16.3 % (11.9-15.9); WHITE BLOOD COUNT 9.3 K/mm3 (4.0-10.0)
[2017-06-15 07:37] LABS: ALBUMIN 2.4 g/dl (3.4-5.0); CALCIUM 8.4 mg/dL (8.5-10.1); GLUCOSE,RANDOM 99 mg/dL (74-106); MAGNESIUM 2.2 mg/dL (1.8-2.4)
[2017-06-15 07:43] LABS: ALK PHOS 145 U/L (45-117); ANION GAP 14 (8-16); BILIRUBIN,TOTAL 0.3 mg/dL (0.2-1.0); CO2 19 mmol/L (21-32); PHOSPHOROUS 6.3 mg/dL (2.5-4.9); SGOT/AST 14 U/L (15-37); SGPT/ALT 30 U/L (12-78); TOT PROT 5.5 g/dl (6.4-8.2)
[2017-06-15] MEDS: FERROUS SO4 325 MG TABLET (FP) PO SCH ×2 (09:29→22:16)
[2017-06-15] MEDS: NYSTATIN POWDER 100,000 UNITS/GM - 15 GM TOPICAL POWDER TP SCH ×2 (09:29→22:21)
[2017-06-15] MEDS: MULTIVITAMINS (DAILY MVI) TABLET (FP) PO SCH (09:29)
[2017-06-15] MEDS: ESCITALOPRAM OXALATE 20 MG TABLET (FP) PO SCH ×2 (09:29→10:25)
[2017-06-15] MEDS: RANITIDINE HCL 150 MG TABLET (FP) PO SCH ×2 (09:29→22:16)
[2017-06-15] MEDS: OMEGA-3 ACID ETHYL ESTERS (FATTY-ACIDS) 1 GM CAPSULE (FP) PO SCH (09:30)
[2017-06-15] MEDS: ASCORBIC ACID 500 MG TABLET (FP) PO SCH ×2 (09:30→22:16)
[2017-06-15] MEDS: HEPARIN NA (PORCINE) 5,000 UNITS/ML 1ML VIAL SQ SCH ×2 (09:31→22:16)
[2017-06-15] MEDS: TRIAMCINOLONE ACET 0.1% 60 ML LOTION TP SCH ×2 (09:31→22:21)
[2017-06-15] MEDS: TAMSULOSIN HCL 0.4 MG CAP.ER.24H (FP) PO SCH (09:42)
[2017-06-15] MEDS: LANOLIN (EMOLL) 30 GM TUBE TP SCH ×2 (09:42→22:28)
[2017-06-15] MEDS ORDERED: OMEGA PO SCH (10:00)
[2017-06-15] MEDS ORDERED: DHA PO SCH (10:00)
[2017-06-15] MEDS ORDERED: KRILL OIL PO SCH (10:00)
[2017-06-15] MEDS ORDERED: [UNRECOGNIZED DRUG - OTHER] PO SCH (10:00)
[2017-06-15] MEDS ORDERED: OLANZapine 7.5 MG TABLET PO SCH (10:00)
[2017-06-15] MEDS ORDERED: EPA PO SCH (10:00)
[2017-06-15] MEDS ORDERED: amLODIPine BESYLATE 10 MG TABLET (FP) PO SCH (10:00)
[2017-06-15] MEDS: OLANZAPINE 2.5 MG, OLANZAPINE 5 MG PO SCH (10:26)
--- NOTE | 2017-06-15 11:08 | PN ---
Progress Note (short form) - Note Progress Note: Renal follow up for SUZI on CKD Pt was seen by our service on his recent hosptial admission This is a 86 year old gentleman with PMhx of CHF with preserved LVF, CKD Stage 4 (baseline Cr ~2.5), BPH who presented from [place] with SOB and admitted for suspected sepsis with SUZI with Cr of 3.8. Pt left the hospital last week with Cr of 3.2. Pt is confused but awake and alert but not able to provide history. Seay in place. No N/V overnight. Started on IVF yesterday. Give Kayexlte for K of 5.5. Pt is oliguric. Vital Signs Temperature 96 F L 06/15/17 10:00 Pulse Rate 55 L 06/15/17 10:00 Respiratory Rate 18 06/15/17 10:00 Blood Pressure 103/52 06/15/17 10:00 O2 Sat by Pulse Oximetry (%) 97 06/15/17 09:00 Intake & Output 06/12/17 06/13/17 06/14/17 06/15/17 23:59 23:59 23:59 23:59 Intake Total 180 Output Total 200 200 Balance -20 -200 Weight 165 lb NAD on NC No JVD RRR, No M/R Dec BS at lung bases, no rales (anterior exam) soft Obese Abd no bladder distension Trace to 1+ sacral edema No LE edema, no clubbing or cyanosis awake and alert but confused CBC, BMP 06/15/17 05:19 06/15/17 05:19 Current Medications Acetaminophen (Tylenol -) 650 mg PO Q4H PRN PRN Reason: FEVER OR PAIN Albuterol/Ipratropium (Duoneb -) 1 amp NEB ONCE ONE Stop: 06/15/17 11:07 Albuterol/Ipratropium (Duoneb -) 1 amp NEB Q6H PRN PRN Reason: SHORTNESS OF BREATH Amlodipine Besylate (Norvasc -) 10 mg PO DAILY [facility] Last Admin: 06/15/17 09:31 Dose: Not Given Ascorbic Acid (Vitamin C -) 500 mg PO BID [facility] Last Admin: 06/15/17 09:30 Dose: 500 mg Emollient Ointment (Lanolin Topical Ointment -) 1 applic TP BID [facility] Last Admin: 06/15/17 09:42 Dose: 1 applic Escitalopram Oxalate (Lexapro -) 20 mg PO DAILY [facility] Last Admin: 06/15/17 10:25 Dose: Not Given Ferrous Sulfate (Feosol -) 325 mg PO BID [facility] Last Admin: 06/15/17 09:29 Dose: 325 mg Heparin Sodium (Porcine) (Heparin -) 5,000 unit SQ BID [facility] Last Admin: 06/15/17 09:31 Dose: 5,000 unit Sodium Chloride (Normal Saline -) 1,000 mls @ 75 mls/hr IV ASDIR [facility] Last Admin: 06/14/17 17:30 Dose: 75 mls/hr Piperacillin/Tazobactam/Dextrose (Zosyn 2.25gm Ivpb (Premix)) 50 mls @ 100 mls/ hr IVPB Q8H-IV CINTHYA PRN Reason: Protocol Last Admin: 06/15/17 09:30 Dose: 100 mls/hr Multivitamins/Minerals/Vitamin C (Tab-A-Vit -) 1 tab PO DAILY [facility] Last Admin: 06/15/17 09:29 Dose: 1 tab Nystatin (Nystop Powder -) 1 applic TP BID [facility] Last Admin: 06/15/17 09:29 Dose: 1 applic Olanzapine 2.5 mg/ Olanzapine (5 mg) 7.5 mg PO DAILY [facility] Last Admin: 06/15/17 10:26 Dose: Not Given Uypsi-1-Acoz Ethyl Esters (Lovaza -) 1 gm PO DAILY [facility] Last Admin: 06/15/17 09:30 Dose: 1 gm Ranitidine HCl (Zantac -) 150 mg PO BID [facility] Last Admin: 06/15/17 09:29 Dose: 150 mg Tamsulosin HCl (Flomax -) 0.4 mg PO DAILY [facility] Last Admin: 06/15/17 09:42 Dose: 0.4 mg Triamcinolone Acetonide (Aristocort 0.1% Lotion -) 1 applic TP BID [facility] Last Admin: 06/15/17 09:31 Dose: 1 applic 86 year old gentleman with PMhx of CHF with preserved LVF, CKD Stage 4 ( baseline Cr ~2.5), BPH who presented from [place] with SOB and admitted for suspected sepsis with SUZI with Cr of 3.8. #Acute on Chronic renal insufficiency with hyperkalemia and mild volume expansion Urine studies show a low FeNa and thus preserved tubular function pt has been on IVF but with wheezing and 3rd spacing hold IVF for now, check CXR may warrant IV lasix pending CXR Keep MaP > 65, will D/c Norvasc Trend Urine output no acute indication for ADDICTION NURSE #Sepsis syndrome continue Emperic Abx f/u cultures reports #Lactic Acidosis/Anion gap MA Trend Bicarb levels no acute indication for oral bicarb given + AG Supportive care prognosis guarded Teja Mercedes DO
[2017-06-15] MEDS ORDERED: ALBUTEROL SO4 2.5/IPRATROPIUM 0.5 INH SOL 3 ML VIAL.NEB. NEB ONE (11:45)
--- NOTE | 2017-06-15 15:10 | PN ---
Progress Note, Physician History of Present Illness: patient looks mores stable awake says he does not feel well - Current Medication List Current Medications: Active Medications Acetaminophen (Tylenol -) 650 mg PO Q4H PRN PRN Reason: FEVER OR PAIN Albuterol/Ipratropium (Duoneb -) 1 amp NEB Q6H PRN PRN Reason: SHORTNESS OF BREATH Ascorbic Acid (Vitamin C -) 500 mg PO BID [facility] Last Admin: 06/15/17 09:30 Dose: 500 mg Emollient Ointment (Lanolin Topical Ointment -) 1 applic TP BID [facility] Last Admin: 06/15/17 09:42 Dose: 1 applic Escitalopram Oxalate (Lexapro -) 20 mg PO DAILY [facility] Last Admin: 06/15/17 10:25 Dose: Not Given Ferrous Sulfate (Feosol -) 325 mg PO BID [facility] Last Admin: 06/15/17 09:29 Dose: 325 mg Heparin Sodium (Porcine) (Heparin -) 5,000 unit SQ BID [facility] Last Admin: 06/15/17 09:31 Dose: 5,000 unit Sodium Chloride (Normal Saline -) 1,000 mls @ 75 mls/hr IV ASDIR [facility] Last Admin: 06/14/17 17:30 Dose: 75 mls/hr Piperacillin/Tazobactam/Dextrose (Zosyn 2.25gm Ivpb (Premix)) 50 mls @ 100 mls/ hr IVPB Q8H-IV CINTHYA PRN Reason: Protocol Last Admin: 06/15/17 09:30 Dose: 100 mls/hr Multivitamins/Minerals/Vitamin C (Tab-A-Vit -) 1 tab PO DAILY [facility] Last Admin: 06/15/17 09:29 Dose: 1 tab Nystatin (Nystop Powder -) 1 applic TP BID [facility] Last Admin: 06/15/17 09:29 Dose: 1 applic Olanzapine 2.5 mg/ Olanzapine (5 mg) 7.5 mg PO DAILY [facility] Last Admin: 06/15/17 10:26 Dose: Not Given Gsauw-3-Efhb Ethyl Esters (Lovaza -) 1 gm PO DAILY [facility] Last Admin: 06/15/17 09:30 Dose: 1 gm Ranitidine HCl (Zantac -) 150 mg PO BID [facility] Last Admin: 06/15/17 09:29 Dose: 150 mg Tamsulosin HCl (Flomax -) 0.4 mg PO DAILY [facility] Last Admin: 06/15/17 09:42 Dose: 0.4 mg Triamcinolone Acetonide (Aristocort 0.1% Lotion -) 1 applic TP BID [facility] Last Admin: 06/15/17 09:31 Dose: 1 applic - Objective Vital Signs: Vital Signs Temperature 96 F L 06/15/17 10:00 Pulse Rate 55 L 06/15/17 10:00 Respiratory Rate 18 06/15/17 10:00 Blood Pressure 103/52 06/15/17 10:00 O2 Sat by Pulse Oximetry (%) 97 06/15/17 09:00 Constitutional: Yes: No Distress, Calm Cardiovascular: Yes: Regular Rate and Rhythm Respiratory: Yes: Regular, On Nasal O2 Gastrointestinal: Yes: Normal Bowel Sounds, Soft Musculoskeletal: Yes: Other Extremities: Yes: Other Neurological: Yes: Alert, Other Psychiatric: Yes: Other Labs: CBC, BMP 06/15/17 05:19 06/15/17 05:19 INR, PTT INR 1.01 (0.82-1.09) 06/14/17 11:00 Assessment/Plan Problem List - Problems (1) Sepsis Code(s): A41.9 - SEPSIS, UNSPECIFIED ORGANISM Qualifiers: Sepsis type: sepsis due to unspecified organism Qualified Code(s): A41.9 - Sepsis, unspecified organism; A41.9 - Sepsis, unspecified organism; A41.9 - Sepsis, unspecified organism (2) Metabolic encephalopathy Code(s): G93.41 - METABOLIC ENCEPHALOPATHY (3) Bradycardia Code(s): R00.1 - BRADYCARDIA, UNSPECIFIED (4) UTI (urinary tract infection) Code(s): N39.0 - URINARY TRACT INFECTION, SITE NOT SPECIFIED Qualifiers: Urinary tract infection type: site unspecified Hematuria presence: without hematuria Qualified Code(s): N39.0 - Urinary tract infection, site not specified; N39.0 - Urinary tract infection, site not specified; R31.9 - Hematuria, unspecified; R31.9 - Hematuria, unspecified (5) Acute on chronic renal failure Code(s): N17.9 - ACUTE KIDNEY FAILURE, UNSPECIFIED N18.9 - CHRONIC KIDNEY DISEASE, UNSPECIFIED (6) Hyperkalemia Code(s): E87.5 - HYPERKALEMIA (7) Anemia Code(s): D64.9 - ANEMIA, UNSPECIFIED Qualifiers: 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 Code(s): D50.0 - Iron deficiency anemia secondary to blood loss (chronic); D50.0 - Iron deficiency anemia secondary to blood loss (chronic) (8) CAD (coronary artery disease) Code(s): I25.10 - ATHSCL HEART DISEASE OF [place] CORONARY ARTERY W/O ANG PCTRS (9) CHF (congestive heart failure) Code(s): I50.9 - HEART FAILURE, UNSPECIFIED Qualifiers: Congestive heart failure type: diastolic Congestive heart failure chronicity: chronic Qualified Code(s): I50.32 - Chronic diastolic ( congestive) heart failure; I50.32 - Chronic diastolic (congestive) heart failure ; I50.32 - Chronic diastolic (congestive) heart failure; I50.32 - Chronic diastolic (congestive) heart failure (10) Dementia Code(s): F03.90 - UNSPECIFIED DEMENTIA WITHOUT BEHAVIORAL DISTURBANCE (11) HTN (hypertension) Code(s): I10 - ESSENTIAL (PRIMARY) HYPERTENSION patient received vanco and zosyn plan continue abx cx reports noted continue monitoring rest as per primary
--- NOTE | 2017-06-15 15:13 | CON.CARD ---
Consult Consult Specialty:: Cardiology Referred by:: Hai Diaz MD Reason for Consultation:: Slow afib, sick sinus syndrome - History of Present Illness Chief Complaint: Bradycardia History of Present Illness: 86 y/o man NHR, HTN, CHF, CAD, JAQUELINE, Afib sick sinus syndrome, schizophrenia, & depression admitted with altered mental status, hypothermia, acute on CKD, sepsis, suspect source. Patient is arousable and unable to give any history. 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 duo bx neg) - Alcohol/Substance Use Hx Alcohol Use: No - Smoking History Smoking history: Unknown if ever smoked Have you smoked in the past 12 months: No Aproximately how many cigarettes per day: 15 If you are a former smoker, when did you quit?: does not remember - Social History Usual Living Arrangement: Alone ADL: Support Services History of Recent Travel: No Home Medications - Allergies Allergies/Adverse Reactions: Allergies Allergy/AdvReac Type Severity Reaction Status Date / Time No Known Drug Allergies Allergy Verified 06/14/17 09:45 - Home Medications Home Medications: Ambulatory Orders Acetaminophen 650 mg PO DAILY 05/31/17 Amlodipine Besylate [Norvasc -] 10 mg PO DAILY 05/31/17 Ascorbic Acid [Vitamin C] 500 mg PO BID 05/31/17 Docusate Sodium [Colace -] 100 mg PO DAILY 05/31/17 Escitalopram Oxalate [Lexapro -] 20 mg PO DAILY 05/31/17 Ferrous Sulfate [Feosol] 325 mg PO BID 05/31/17 Krill Oil/[place]-3/Dha/Epa [[place]-3 Krill Oil Softgel] 1 each PO DAILY 05/31/17 Metoprolol Succinate [Toprol XL -] 25 mg PO DAILY 05/31/17 Multivitamin [One Daily] 1 each PO DAILY 05/31/17 Nystatin Powder [Nystop Powder -] 15 gm TP BID 05/31/17 Olanzapine [Zyprexa -] 7.5 mg PO DAILY 05/31/17 Perphenazine [Trilafon -] 0.5 mg PO DAILY 05/31/17 Ranitidine [Zantac -] 150 mg PO BID 05/31/17 Tamsulosin HCl [Flomax -] 0.4 mg PO DAILY 05/31/17 Triamcinolone 0.1% Lotion [Aristocort 0.1% Lotion -] 1 applic TP BID 05/31/17 Vits A and D/White Pet/Lanolin [Vitamin A & D Grx Ointment] 60 gm TP BID Albuterol 0.083% Nebulizer Keisha [Ventolin 0.083%] 1 neb NEB Q4H PRN 06/14/17 Amoxicillin/Potassium Clav [Amox-Clav 500-125 mg Tablet] 1 each PO BID 06/14/17 Prednisone [Deltasone] 40 mg PO DAILY 06/14/17 Review of Systems Unable to obtain ROS, reason: Dementia Vital Signs: Vital Signs Temperature 96 F L 06/15/17 10:00 Pulse Rate 55 L 06/15/17 10:00 Respiratory Rate 18 06/15/17 10:00 Blood Pressure 103/52 06/15/17 10:00 O2 Sat by Pulse Oximetry (%) 97 06/15/17 09:00 Constitutional: Yes: No Distress, Calm Neck: Yes: Supple Respiratory: Yes: Regular, Diminished Gastrointestinal: Yes: Soft, Abdomen, Obese, Hypoactive Bowel Sounds Cardiovascular: Yes: Bradycardia, Pulse Irregular JVD: No Carotid Bruit: No Heart Sounds: Yes: S1, S2 Murmur: Yes: Systolic Murmur, Grade 2 Edema: No - Other Data Labs, Other Data: CBC, BMP 06/15/17 05:19 06/15/17 05:19 INR, PTT INR 1.01 (0.82-1.09) 06/14/17 11:00 Afib @ 64 Tele: 3.6 sec pause Echo: Report Reviewed Ejection Fraction %: LVEF > or = 40 % Assessment/Plan 05/07/2017 Echo: Normal LV size and fxn, mod , mild TR 1. Sepsis source with toxic met encephelopathy 2. Slow afib, sick sinus syndrome 3. Diastolic dysfxn with mod 4. HTN/HCVD 5. CAD, angina pectoris 6. Dementia Alzheimer's Type 7. Acute on CKD with hyperkalemia 8. Anemia 1. Judicious IVF with monitor renal recovery, observe off AV micha blockers 2. Abx course per C&S 3. DVT and GI prophylaxis 4. No indications for PPM given stable telemetry findings compared with previous admissions and ongoing treatment for suspected sepsis 5. Thank you for consultative opportunity
[2017-06-15] MEDS: SODIUM CHLORIDE 1,000 ML IV SCH (15:15)
--- NOTE | 2017-06-15 15:22 | PN ---
Progress Note, Physician Chief Complaint: Unable to obtain, patient repeats "help me" - Current Medication List Current Medications: Active Medications Acetaminophen (Tylenol -) 650 mg PO Q4H PRN PRN Reason: FEVER OR PAIN Albuterol/Ipratropium (Duoneb -) 1 amp NEB Q6H PRN PRN Reason: SHORTNESS OF BREATH Ascorbic Acid (Vitamin C -) 500 mg PO BID [facility] Last Admin: 06/15/17 09:30 Dose: 500 mg Emollient Ointment (Lanolin Topical Ointment -) 1 applic TP BID [facility] Last Admin: 06/15/17 09:42 Dose: 1 applic Escitalopram Oxalate (Lexapro -) 20 mg PO DAILY [facility] Last Admin: 06/15/17 10:25 Dose: Not Given Ferrous Sulfate (Feosol -) 325 mg PO BID [facility] Last Admin: 06/15/17 09:29 Dose: 325 mg Heparin Sodium (Porcine) (Heparin -) 5,000 unit SQ BID [facility] Last Admin: 06/15/17 09:31 Dose: 5,000 unit Sodium Chloride (Normal Saline -) 1,000 mls @ 75 mls/hr IV ASDIR [facility] Last Admin: 06/14/17 17:30 Dose: 75 mls/hr Piperacillin/Tazobactam/Dextrose (Zosyn 2.25gm Ivpb (Premix)) 50 mls @ 100 mls/ hr IVPB Q8H-IV CINTHYA PRN Reason: Protocol Last Admin: 06/15/17 09:30 Dose: 100 mls/hr Multivitamins/Minerals/Vitamin C (Tab-A-Vit -) 1 tab PO DAILY [facility] Last Admin: 06/15/17 09:29 Dose: 1 tab Nystatin (Nystop Powder -) 1 applic TP BID [facility] Last Admin: 06/15/17 09:29 Dose: 1 applic Olanzapine 2.5 mg/ Olanzapine (5 mg) 7.5 mg PO DAILY [facility] Last Admin: 06/15/17 10:26 Dose: Not Given Bqgbn-3-Skkb Ethyl Esters (Lovaza -) 1 gm PO DAILY [facility] Last Admin: 06/15/17 09:30 Dose: 1 gm Ranitidine HCl (Zantac -) 150 mg PO BID [facility] Last Admin: 06/15/17 09:29 Dose: 150 mg Tamsulosin HCl (Flomax -) 0.4 mg PO DAILY [facility] Last Admin: 06/15/17 09:42 Dose: 0.4 mg Triamcinolone Acetonide (Aristocort 0.1% Lotion -) 1 applic TP BID [facility] Last Admin: 06/15/17 09:31 Dose: 1 applic - Objective Vital Signs: Vital Signs Temperature 36.4 C 06/15/17 14:25 Pulse Rate 94 H 06/15/17 14:25 Respiratory Rate 18 06/15/17 14:25 Blood Pressure 117/69 06/15/17 14:25 O2 Sat by Pulse Oximetry (%) 97 06/15/17 09:00 Constitutional: Yes: Other (obtunded) Cardiovascular: Yes: Pulse Irregular. No: Gallop, Murmur, Rub Respiratory: Yes: Regular, CTA Bilaterally. No: Rales, Rhonchi, Wheezes Gastrointestinal: Yes: Normal Bowel Sounds, Soft. No: Distention, Tenderness Extremities: Yes: Erythema Edema: No Labs: CBC, BMP 06/15/17 05:19 06/15/17 05:19 INR, PTT INR 1.01 (0.82-1.09) 06/14/17 11:00 Problem List - Problems (1) Sepsis Code(s): A41.9 - SEPSIS, UNSPECIFIED ORGANISM Qualifiers: Sepsis type: sepsis due to unspecified organism Qualified Code(s): A41.9 - Sepsis, unspecified organism; A41.9 - Sepsis, unspecified organism; A41.9 - Sepsis, unspecified organism (2) Metabolic encephalopathy Code(s): G93.41 - METABOLIC ENCEPHALOPATHY (3) Bradycardia Code(s): R00.1 - BRADYCARDIA, UNSPECIFIED (4) UTI (urinary tract infection) Code(s): N39.0 - URINARY TRACT INFECTION, SITE NOT SPECIFIED Qualifiers: Urinary tract infection type: site unspecified Hematuria presence: without hematuria Qualified Code(s): N39.0 - Urinary tract infection, site not specified; N39.0 - Urinary tract infection, site not specified; R31.9 - Hematuria, unspecified; R31.9 - Hematuria, unspecified (5) Acute on chronic renal failure Code(s): N17.9 - ACUTE KIDNEY FAILURE, UNSPECIFIED N18.9 - CHRONIC KIDNEY DISEASE, UNSPECIFIED (6) Hyperkalemia Code(s): E87.5 - HYPERKALEMIA (7) Anemia Code(s): D64.9 - ANEMIA, UNSPECIFIED Qualifiers: 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 Code(s): D50.0 - Iron deficiency anemia secondary to blood loss (chronic); D50.0 - Iron deficiency anemia secondary to blood loss (chronic) (8) CAD (coronary artery disease) Code(s): I25.10 - ATHSCL HEART DISEASE OF [place] CORONARY ARTERY W/O ANG PCTRS (9) CHF (congestive heart failure) Code(s): I50.9 - HEART FAILURE, UNSPECIFIED Qualifiers: Congestive heart failure type: diastolic Congestive heart failure chronicity: chronic Qualified Code(s): I50.32 - Chronic diastolic ( congestive) heart failure; I50.32 - Chronic diastolic (congestive) heart failure ; I50.32 - Chronic diastolic (congestive) heart failure; I50.32 - Chronic diastolic (congestive) heart failure (10) Dementia Code(s): F03.90 - UNSPECIFIED DEMENTIA WITHOUT BEHAVIORAL DISTURBANCE (11) HTN (hypertension) Code(s): I10 - ESSENTIAL (PRIMARY) HYPERTENSION Assessment/Plan (1) Sepsis Assessment/Plan: -ID following and appreciate assistance -urine culture negative -blood cultures pending but NGTD -c diff negative -continue empiric antibiotics at this time Code(s): A41.9 - SEPSIS, UNSPECIFIED ORGANISM Qualifiers: Sepsis type: sepsis due to unspecified organism Qualified Code(s): A41.9 - Sepsis, unspecified organism; A41.9 - Sepsis, unspecified organism; A41.9 - Sepsis, unspecified organism (2) Metabolic encephalopathy Assessment/Plan: -unchanged -continue treating underlying condition -however suspect exacerbated by hypoperfusion from sick sinus syndrome with symptomatic bradycardia Code(s): G93.41 - METABOLIC ENCEPHALOPATHY (3) Bradycardia/sick sinus rhythm Assessment/Plan: -cardiology consulted and awaiting recommendations -patient not a candidate for pacemaker considering concern for infection and proxy not wanting invasive procedures -continue telemetry monitoring -will hold metoprolol and perphenazine as both can cause bradycardia and perphenazine can cause arrhythmias Code(s): R00.1 - BRADYCARDIA, UNSPECIFIED (4) UTI (urinary tract infection) Assessment/Plan: -urine culture NGTD -continue empiric zosyn at this time, if blood cultures negative then stop antibiotics Code(s): N39.0 - URINARY TRACT INFECTION, SITE NOT SPECIFIED Qualifiers: Urinary tract infection type: site unspecified Hematuria presence: without hematuria Qualified Code(s): N39.0 - Urinary tract infection, site not specified; N39.0 - Urinary tract infection, site not specified; R31.9 - Hematuria, unspecified; R31.9 - Hematuria, unspecified (5) Acute on chronic renal failure Assessment/Plan: -case d/w Dr Mercedes -chest x-ray read reviewed -continue IVF Code(s): N17.9 - ACUTE KIDNEY FAILURE, UNSPECIFIED N18.9 - CHRONIC KIDNEY DISEASE, UNSPECIFIED (6) Hyperkalemia Assessment/Plan: -continue hydration Code(s): E87.5 - HYPERKALEMIA (7) Anemia Assessment/Plan: -above baseline -continue iron Code(s): D64.9 - ANEMIA, UNSPECIFIED Qualifiers: 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 Code(s): D50.0 - Iron deficiency anemia secondary to blood loss (chronic); D50.0 - Iron deficiency anemia secondary to blood loss (chronic) (8) CAD (coronary artery disease) Assessment/Plan: -with sick sinus syndrome Code(s): I25.10 - ATHSCL HEART DISEASE OF [place] CORONARY ARTERY W/O ANG PCTRS (9) CHF (congestive heart failure) Assessment/Plan: -not in exacerbation -hydration with close monitoring as can become fluid overloaded Code(s): I50.9 - HEART FAILURE, UNSPECIFIED Qualifiers: Congestive heart failure type: diastolic Congestive heart failure chronicity: chronic Qualified Code(s): I50.32 - Chronic diastolic ( congestive) heart failure; I50.32 - Chronic diastolic (congestive) heart failure ; I50.32 - Chronic diastolic (congestive) heart failure; I50.32 - Chronic diastolic (congestive) heart failure (10) Dementia Assessment/Plan: -exacerbated by sepsis -continue olanzapine -holding perphenazine as above Code(s): F03.90 - UNSPECIFIED DEMENTIA WITHOUT BEHAVIORAL DISTURBANCE (11) HTN (hypertension) Assessment/Plan: -blood pressure improving with hydration Code(s): I10 - ESSENTIAL (PRIMARY) HYPERTENSION
[2017-06-16] MEDS: ALBUTEROL SO4 2.5/IPRATROPIUM 0.5 INH SOL 3 ML VIAL.NEB. NEB PRN ×2 (00:25→22:45)
[2017-06-16] MEDS: PIPERACILLIN/TAZOB 2.25 GM 50 ML IVPB SCH ×3 (01:59→18:17)
[2017-06-16 07:29] LABS: ALBUMIN 2.4 g/dl (3.4-5.0); ANION GAP 12 (8-16); CALCIUM 8.3 mg/dL (8.5-10.1); CO2 22 mmol/L (21-32); MAGNESIUM 2.1 mg/dL (1.8-2.4)
[2017-06-16 07:35] LABS: ALK PHOS 145 U/L (45-117); BILIRUBIN,TOTAL 0.4 mg/dL (0.2-1.0); CREATININE 4.2 mg/dL (0.7-1.3); GLUCOSE,RANDOM 97 mg/dL (74-106); PHOSPHOROUS 6.4 mg/dL (2.5-4.9); SGOT/AST 13 U/L (15-37); SGPT/ALT 30 U/L (12-78); TOT PROT 5.5 g/dl (6.4-8.2)
[2017-06-16 08:03] LABS: BASOPHIL 0.2 % (0-2.0); EOSINOPHIL 0.9 % (0-4.5); MCH 29.6 pg (25.7-33.7); MCHC 33.1 g/dl (32.0-35.9); MEAN CELL VOLUME 89.4 fl (80-96); MEAN PLT VOLUME 9.1 fl (7.5-11.1); NEUTROPHILS 84.6 % (42.8-82.8); PLATELET COUNT 206 K/MM3 (134-434); RDW 16.6 % (11.9-15.9); WHITE BLOOD COUNT 8.6 K/mm3 (4.0-10.0)
[2017-06-16] MEDS ORDERED: PT OWN MED DRAWER 7, Y5N ONE (08:50)
--- NOTE | 2017-06-16 09:58 | PN ---
Progress Note (short form) - Note Progress Note: Renal follow up for SUZI on CKD Pt seen and examined a the bedside reprots + sob and chest pain pt noted to have pauses on Tele BP low on IVF overnight Vital Signs Temperature 97.8 F 06/16/17 06:00 Pulse Rate 66 06/16/17 06:00 Respiratory Rate 20 06/16/17 06:00 Blood Pressure 92/47 06/16/17 06:00 O2 Sat by Pulse Oximetry (%) 95 06/15/17 21:00 Intake & Output 06/13/17 06/14/17 06/15/17 06/16/17 23:59 23:59 23:59 23:59 Intake Total 507 108 2816 Output Total 200 350 525 Balance -20 350 545 Weight 165 lb NAD awake and alert bradycardic + congestion on lung costello soft NT/ND No LE edmea CBC, BMP 06/16/17 05:10 06/16/17 05:10 Laboratory Tests 06/16/17 05:10 Calcium 8.3 L Phosphorus 6.4 H Magnesium 2.1 Albumin 2.4 L Current Medications Acetaminophen (Tylenol -) 650 mg PO Q4H PRN PRN Reason: FEVER OR PAIN Albuterol/Ipratropium (Duoneb -) 1 amp NEB Q6H PRN PRN Reason: SHORTNESS OF BREATH Last Admin: 06/16/17 00:25 Dose: 1 amp Ascorbic Acid (Vitamin C -) 500 mg PO BID [facility] Last Admin: 06/15/17 22:16 Dose: 500 mg Emollient Ointment (Lanolin Topical Ointment -) 1 applic TP BID [facility] Last Admin: 06/15/17 22:28 Dose: 1 applic Escitalopram Oxalate (Lexapro -) 20 mg PO DAILY [facility] Last Admin: 06/15/17 10:25 Dose: Not Given Ferrous Sulfate (Feosol -) 325 mg PO BID [facility] Last Admin: 06/15/17 22:16 Dose: 325 mg Heparin Sodium (Porcine) (Heparin -) 5,000 unit SQ BID [facility] Last Admin: 06/15/17 22:16 Dose: 5,000 unit Sodium Chloride (Normal Saline -) 1,000 mls @ 75 mls/hr IV ASDIR [facility] Last Admin: 06/15/17 15:15 Dose: 75 mls/hr Piperacillin/Tazobactam/Dextrose (Zosyn 2.25gm Ivpb (Premix)) 50 mls @ 100 mls/ hr IVPB Q8H-IV CINTHYA PRN Reason: Protocol Last Admin: 06/16/17 01:59 Dose: 100 mls/hr Multivitamins/Minerals/Vitamin C (Tab-A-Vit -) 1 tab PO DAILY [facility] Last Admin: 06/15/17 09:29 Dose: 1 tab Nystatin (Nystop Powder -) 1 applic TP BID [facility] Last Admin: 06/15/17 22:21 Dose: 1 applic Olanzapine 2.5 mg/ Olanzapine (5 mg) 7.5 mg PO DAILY [facility] Last Admin: 06/15/17 10:26 Dose: Not Given [id number]-[id number] Ethyl Esters (Lovaza -) 1 gm PO DAILY [facility] Last Admin: 06/15/17 09:30 Dose: 1 gm Ranitidine HCl (Zantac -) 150 mg PO BID [facility] Last Admin: 06/15/17 22:16 Dose: 150 mg Tamsulosin HCl (Flomax -) 0.4 mg PO DAILY [facility] Last Admin: 06/15/17 09:42 Dose: 0.4 mg Triamcinolone Acetonide (Aristocort 0.1% Lotion -) 1 applic TP BID [facility] Last Admin: 06/15/17 22:21 Dose: 1 applic 86 year old gentleman with PMhx of CHF with preserved LVF, CKD Stage 4 ( baseline Cr ~2.5), BPH who presented from [place] with SOB and admitted for suspected sepsis with SUZI with Cr of 3.8. #Acute on Chronic renal insufficiency with hyperkalemia and mild volume expansion hold IVF b/c of congestion on exam get repeat CXR today may need IV lasix renal function w/o improvement despite IVF for 48 hours no acute indication for [employer] #Sepsis syndrome continue Emperic Abx f/u cultures reports #Lactic Acidosis/Anion gap MA serum bicarb improved today Supportive care prognosis guarded DNR/DNI Teja Mercedes DO
[2017-06-16] MEDS: MULTIVITAMINS (DAILY MVI) TABLET (FP) PO SCH (10:17)
[2017-06-16] MEDS: TAMSULOSIN HCL 0.4 MG CAP.ER.24H (FP) PO SCH (10:18)
[2017-06-16] MEDS: ESCITALOPRAM OXALATE 20 MG TABLET (FP) PO SCH (10:18)
[2017-06-16] MEDS: HEPARIN NA (PORCINE) 5,000 UNITS/ML 1ML VIAL SQ SCH ×2 (10:18→22:24)
[2017-06-16] MEDS: ASCORBIC ACID 500 MG TABLET (FP) PO SCH ×2 (10:18→22:24)
[2017-06-16] MEDS: FERROUS SO4 325 MG TABLET (FP) PO SCH ×2 (10:18→22:24)
[2017-06-16] MEDS: TRIAMCINOLONE ACET 0.1% 60 ML LOTION TP SCH ×2 (10:18→22:25)
[2017-06-16] MEDS: RANITIDINE HCL 150 MG TABLET (FP) PO SCH ×2 (10:18→22:24)
[2017-06-16] MEDS: OMEGA-3 ACID ETHYL ESTERS (FATTY-ACIDS) 1 GM CAPSULE (FP) PO SCH (10:18)
[2017-06-16] MEDS: NYSTATIN POWDER 100,000 UNITS/GM - 15 GM TOPICAL POWDER TP SCH ×2 (10:19→22:24)
[2017-06-16] MEDS: OLANZAPINE 2.5 MG, OLANZAPINE 5 MG PO SCH (10:19)
[2017-06-16] MEDS: LANOLIN (EMOLL) 30 GM TUBE TP SCH ×2 (10:19→22:25)
--- NOTE | 2017-06-16 11:09 | PN ---
Progress Note, Physician History of Present Illness: patient more awake events noted from last night low bp at might now normal afebrile says he feels some discomfort in the leg - Current Medication List Current Medications: Active Medications Acetaminophen (Tylenol -) 650 mg PO Q4H PRN PRN Reason: FEVER OR PAIN Albuterol/Ipratropium (Duoneb -) 1 amp NEB Q6H PRN PRN Reason: SHORTNESS OF BREATH Last Admin: 06/16/17 00:25 Dose: 1 amp Ascorbic Acid (Vitamin C -) 500 mg PO BID [facility] Last Admin: 06/16/17 10:18 Dose: 500 mg Emollient Ointment (Lanolin Topical Ointment -) 1 applic TP BID [facility] Last Admin: 06/16/17 10:19 Dose: 1 applic Escitalopram Oxalate (Lexapro -) 20 mg PO DAILY [facility] Last Admin: 06/16/17 10:18 Dose: 20 mg Ferrous Sulfate (Feosol -) 325 mg PO BID [facility] Last Admin: 06/16/17 10:18 Dose: 325 mg Heparin Sodium (Porcine) (Heparin -) 5,000 unit SQ BID [facility] Last Admin: 06/16/17 10:18 Dose: 5,000 unit Sodium Chloride (Normal Saline -) 1,000 mls @ 75 mls/hr IV ASDIR [facility] Last Admin: 06/15/17 15:15 Dose: 75 mls/hr Piperacillin/Tazobactam/Dextrose (Zosyn 2.25gm Ivpb (Premix)) 50 mls @ 100 mls/ hr IVPB Q8H-IV CINTHYA PRN Reason: Protocol Last Admin: 06/16/17 10:45 Dose: 100 mls/hr Multivitamins/Minerals/Vitamin C (Tab-A-Vit -) 1 tab PO DAILY [facility] Last Admin: 06/16/17 10:17 Dose: 1 tab Nystatin (Nystop Powder -) 1 applic TP BID [facility] Last Admin: 06/16/17 10:19 Dose: 1 applic Olanzapine 2.5 mg/ Olanzapine (5 mg) 7.5 mg PO DAILY [facility] Last Admin: 06/16/17 10:19 Dose: 7.5 mg Vnjbu-0-Nmpp Ethyl Esters (Lovaza -) 1 gm PO DAILY [facility] Last Admin: 06/16/17 10:18 Dose: 1 gm Ranitidine HCl (Zantac -) 150 mg PO BID [facility] Last Admin: 06/16/17 10:18 Dose: 150 mg Tamsulosin HCl (Flomax -) 0.4 mg PO DAILY [facility] Last Admin: 06/16/17 10:18 Dose: 0.4 mg Triamcinolone Acetonide (Aristocort 0.1% Lotion -) 1 applic TP BID [facility] Last Admin: 06/16/17 10:18 Dose: 1 applic - Objective Vital Signs: Vital Signs Temperature 97.8 F 06/16/17 06:00 Pulse Rate 66 06/16/17 06:00 Respiratory Rate 20 06/16/17 06:00 Blood Pressure 92/47 06/16/17 06:00 O2 Sat by Pulse Oximetry (%) 95 06/15/17 21:00 Constitutional: Yes: No Distress, Calm Cardiovascular: Yes: S1, S2 Respiratory: Yes: Regular, On Nasal O2, Other Gastrointestinal: Yes: Normal Bowel Sounds, Soft Musculoskeletal: Yes: Other Extremities: Yes: Other Neurological: Yes: Alert, Other Psychiatric: Yes: Alert, Other Labs: CBC, BMP 06/16/17 05:10 06/16/17 05:10 INR, PTT INR 1.01 (0.82-1.09) 06/14/17 11:00 Assessment/Plan Problem List - Problems (1) Sepsis Code(s): A41.9 - SEPSIS, UNSPECIFIED ORGANISM Qualifiers: Sepsis type: sepsis due to unspecified organism Qualified Code(s): A41.9 - Sepsis, unspecified organism; A41.9 - Sepsis, unspecified organism; A41.9 - Sepsis, unspecified organism (2) Metabolic encephalopathy Code(s): G93.41 - METABOLIC ENCEPHALOPATHY (3) Bradycardia Code(s): R00.1 - BRADYCARDIA, UNSPECIFIED (4) UTI (urinary tract infection) Code(s): N39.0 - URINARY TRACT INFECTION, SITE NOT SPECIFIED Qualifiers: Urinary tract infection type: site unspecified Hematuria presence: without hematuria Qualified Code(s): N39.0 - Urinary tract infection, site not specified; N39.0 - Urinary tract infection, site not specified; R31.9 - Hematuria, unspecified; R31.9 - Hematuria, unspecified (5) Acute on chronic renal failure Code(s): N17.9 - ACUTE KIDNEY FAILURE, UNSPECIFIED N18.9 - CHRONIC KIDNEY DISEASE, UNSPECIFIED (6) Hyperkalemia Code(s): E87.5 - HYPERKALEMIA (7) Anemia Code(s): D64.9 - ANEMIA, UNSPECIFIED Qualifiers: 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 Code(s): D50.0 - Iron deficiency anemia secondary to blood loss (chronic); D50.0 - Iron deficiency anemia secondary to blood loss (chronic) (8) CAD (coronary artery disease) Code(s): I25.10 - ATHSCL HEART DISEASE OF [place] CORONARY ARTERY W/O ANG PCTRS (9) CHF (congestive heart failure) Code(s): I50.9 - HEART FAILURE, UNSPECIFIED Qualifiers: Congestive heart failure type: diastolic Congestive heart failure chronicity: chronic Qualified Code(s): I50.32 - Chronic diastolic ( congestive) heart failure; I50.32 - Chronic diastolic (congestive) heart failure ; I50.32 - Chronic diastolic (congestive) heart failure; I50.32 - Chronic diastolic (congestive) heart failure (10) Dementia Code(s): F03.90 - UNSPECIFIED DEMENTIA WITHOUT BEHAVIORAL DISTURBANCE (11) HTN (hypertension) Code(s): I10 - ESSENTIAL (PRIMARY) HYPERTENSION patient received leno and alisia plan continue abx cx reports noted continue monitoring rest as per primary will see how patient doing tomorrow might consider deescalating
--- NOTE | 2017-06-16 11:50 | PN ---
Progress Note (short form) - Note Progress Note: Patient seen and examined Chart reviewed. Patient currently lethargic with some mild stridor/expiratory wheeze. IV fluids to be discontinued and CXR to be performed. Possible aspiration. Labs, problem list, radiologic procedures and progress notes reviewed. Selected Entries 06/15/17 06/16/17 21:00 06:00 Temperature 97.8 F Pulse Rate 66 Respiratory 20 Rate Blood Pressure 92/47 O2 Sat by Pulse 95 Oximetry (%) Oxygen Delivery Nasal Cannula Method Oxygen Flow 3 Rate Laboratory Tests 06/16/17 06/16/17 05:10 05:10 WBC 8.6 Hgb 8.5 L Hct 25.7 L Plt Count 206 Sodium 145 Potassium 4.8 Chloride 111 H Carbon Dioxide 22 BUN 65 H Creatinine 4.2 H Random Glucose 97 Calcium 8.3 L Phosphorus 6.4 H Magnesium 2.1 Total Bilirubin 0.4 D AST 13 L ALT 30 Alkaline Phosphatase 145 H Total Protein 5.5 L Albumin 2.4 L Chest Upper airway stridor and mild expiratory wheeze Cor Irregular Abd Distended No pain Ext Mild edema Neuro Encephalopathic No new focal deficit Assessment and Plan Respiratory insufficiency Etiology of recent "wheezing" unclear Appears to be related mostly to upper airway congestion (possible aspiration) as lower lung costello are clear (with decreased breath sounds), but CHF exacerbation must be considered Anemia 8.5/25.7 CRI Renal follow-up BUN/Cr 65/4.2 ASHD/CHF with h/o preserved LV function Hypoalbuminemia Chronic Hypothyroid Mild elevation of TSH 7.3 BPH Stable Metabolic encephalopathy Bradycardia Prolonged pauses on telemetry H/O SSS UTI Stable Dementia Chronic stable HTN Stable Hyperkalemia Monitor DNR/DNI Continue current supportive care
--- NOTE | 2017-06-16 14:27 | PN ---
Progress Note, Physician Chief Complaint: Events noted Lethargic Bradycardia and pauses noted History of Present Illness: Patient was seen and examined. Lethargic. Chart was reviewed >5 sec pause noted. - Current Medication List Current Medications: Active Medications Acetaminophen (Tylenol -) 650 mg PO Q4H PRN PRN Reason: FEVER OR PAIN Albuterol/Ipratropium (Duoneb -) 1 amp NEB Q6H PRN PRN Reason: SHORTNESS OF BREATH Last Admin: 06/16/17 00:25 Dose: 1 amp Ascorbic Acid (Vitamin C -) 500 mg PO BID [facility] Last Admin: 06/16/17 10:18 Dose: 500 mg Emollient Ointment (Lanolin Topical Ointment -) 1 applic TP BID [facility] Last Admin: 06/16/17 10:19 Dose: 1 applic Escitalopram Oxalate (Lexapro -) 20 mg PO DAILY [facility] Last Admin: 06/16/17 10:18 Dose: 20 mg Ferrous Sulfate (Feosol -) 325 mg PO BID [facility] Last Admin: 06/16/17 10:18 Dose: 325 mg Heparin Sodium (Porcine) (Heparin -) 5,000 unit SQ BID [facility] Last Admin: 06/16/17 10:18 Dose: 5,000 unit Sodium Chloride (Normal Saline -) 1,000 mls @ 75 mls/hr IV ASDIR [facility] Last Admin: 06/15/17 15:15 Dose: 75 mls/hr Piperacillin/Tazobactam/Dextrose (Zosyn 2.25gm Ivpb (Premix)) 50 mls @ 100 mls/ hr IVPB Q8H-IV CINTHYA PRN Reason: Protocol Last Admin: 06/16/17 10:45 Dose: 100 mls/hr Multivitamins/Minerals/Vitamin C (Tab-A-Vit -) 1 tab PO DAILY [facility] Last Admin: 06/16/17 10:17 Dose: 1 tab Nystatin (Nystop Powder -) 1 applic TP BID [facility] Last Admin: 06/16/17 10:19 Dose: 1 applic Olanzapine 2.5 mg/ Olanzapine (5 mg) 7.5 mg PO DAILY [facility] Last Admin: 06/16/17 10:19 Dose: 7.5 mg Swhce-6-Deug Ethyl Esters (Lovaza -) 1 gm PO DAILY [facility] Last Admin: 06/16/17 10:18 Dose: 1 gm Ranitidine HCl (Zantac -) 150 mg PO BID [facility] Last Admin: 06/16/17 10:18 Dose: 150 mg Tamsulosin HCl (Flomax -) 0.4 mg PO DAILY [facility] Last Admin: 06/16/17 10:18 Dose: 0.4 mg Triamcinolone Acetonide (Aristocort 0.1% Lotion -) 1 applic TP BID [facility] Last Admin: 06/16/17 10:18 Dose: 1 applic - Objective Vital Signs: Vital Signs Temperature 97.8 F 06/16/17 06:00 Pulse Rate 66 06/16/17 06:00 Respiratory Rate 20 06/16/17 09:00 Blood Pressure 92/47 06/16/17 06:00 O2 Sat by Pulse Oximetry (%) 96 06/16/17 09:00 Neck: Yes: Supple Cardiovascular: Yes: Pulse Irregular, Murmur (Soft SM), S1, S2 Respiratory: Yes: Diminished Gastrointestinal: Yes: Normal Bowel Sounds, Soft. No: Tenderness Edema: No Labs: CBC, BMP 06/16/17 05:10 06/16/17 05:10 INR, PTT INR 1.01 (0.82-1.09) 06/14/17 11:00 Problem List - Problems (1) Bradycardia Code(s): R00.1 - BRADYCARDIA, UNSPECIFIED (2) Metabolic encephalopathy Code(s): G93.41 - METABOLIC ENCEPHALOPATHY (3) Acute on chronic renal failure Code(s): N17.9 - ACUTE KIDNEY FAILURE, UNSPECIFIED N18.9 - CHRONIC KIDNEY DISEASE, UNSPECIFIED (4) Anemia Code(s): D64.9 - ANEMIA, UNSPECIFIED Qualifiers: 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 Code(s): D50.0 - Iron deficiency anemia secondary to blood loss (chronic); D50.0 - Iron deficiency anemia secondary to blood loss (chronic) (5) CAD (coronary artery disease) Code(s): I25.10 - ATHSCL HEART DISEASE OF [place] CORONARY ARTERY W/O ANG PCTRS (6) Dementia Code(s): F03.90 - UNSPECIFIED DEMENTIA WITHOUT BEHAVIORAL DISTURBANCE (7) HTN (hypertension) Code(s): I10 - ESSENTIAL (PRIMARY) HYPERTENSION (8) Schizo-affective schizophrenia, chronic condition Code(s): F25.8 - OTHER SCHIZOAFFECTIVE DISORDERS (9) Sepsis Code(s): A41.9 - SEPSIS, UNSPECIFIED ORGANISM Qualifiers: Sepsis type: sepsis due to unspecified organism Qualified Code(s): A41.9 - Sepsis, unspecified organism; A41.9 - Sepsis, unspecified organism; A41.9 - Sepsis, unspecified organism (10) UTI (urinary tract infection) Code(s): N39.0 - URINARY TRACT INFECTION, SITE NOT SPECIFIED Qualifiers: Urinary tract infection type: site unspecified Hematuria presence: without hematuria Qualified Code(s): N39.0 - Urinary tract infection, site not specified; N39.0 - Urinary tract infection, site not specified; R31.9 - Hematuria, unspecified; R31.9 - Hematuria, unspecified Assessment/Plan 1. Sepsis source with toxic metabolic encephalopathy 2. Slow AF and sick sinus syndrome 3. Diastolic dysfunction with moderate 4. HTN/HCVD 5. CAD, angina pectoris 6. Dementia - Alzheimer's Type 7. Acute on CKD with hyperkalemia 8. Anemia PLAN: 1. Judicious IVF with monitoring renal function 2. Avoid AV micha agents 3. Antibiotic coverage 4. DVT and GI prophylaxis 5. Continue to monitor on telemetry. In view of overall, medical condition, despite above findings of pauses, would not pursue PPM at this time unless otherwise strongly indicated Further plans are to follow Enrrique Pérez MD
[2017-06-16] MEDS: SODIUM CHLORIDE 1,000 ML IV SCH (18:17)
[2017-06-17] MEDS ORDERED: PT OWN MED DRAWER 7, Y5N ONE (01:04)
[2017-06-17] MEDS: PIPERACILLIN/TAZOB 2.25 GM 50 ML IVPB SCH ×3 (01:27→17:24)
[2017-06-17] MEDS: ALBUTEROL SO4 2.5/IPRATROPIUM 0.5 INH SOL 3 ML VIAL.NEB. NEB PRN ×3 (06:45→22:25)
[2017-06-17 07:36] LABS: BASOPHIL 0.3 % (0-2.0); EOSINOPHIL 1.6 % (0-4.5); MCH 29.3 pg (25.7-33.7); MCHC 32.3 g/dl (32.0-35.9); MEAN CELL VOLUME 90.5 fl (80-96); PLATELET COUNT 206 K/MM3 (134-434); RDW 16.8 % (11.9-15.9); WHITE BLOOD COUNT 8.3 K/mm3 (4.0-10.0)
[2017-06-17 08:06] LABS: ANION GAP 12 (8-16); CALCIUM 7.8 mg/dL (8.5-10.1); CO2 21 mmol/L (21-32); CREATININE 4.2 mg/dL (0.7-1.3); GLUCOSE,RANDOM 82 mg/dL (74-106); MAGNESIUM 2.1 mg/dL (1.8-2.4); PHOSPHOROUS 5.6 mg/dL (2.5-4.9)
--- NOTE | 2017-06-17 09:09 | PN ---
Progress Note, Physician Chief Complaint: Events noted Lethargic Bradycardia and pauses noted on the monitor Currently appears to be in sinus rhythm History of Present Illness: Patient was seen and examined. Lethargic. Chart was reviewed Periods of bradycardia but in sinus rhythm - Current Medication List Current Medications: Active Medications Acetaminophen (Tylenol -) 650 mg PO Q4H PRN PRN Reason: FEVER OR PAIN Albuterol/Ipratropium (Duoneb -) 1 amp NEB Q6H PRN PRN Reason: SHORTNESS OF BREATH Last Admin: 06/17/17 06:45 Dose: 1 amp Ascorbic Acid (Vitamin C -) 500 mg PO BID [facility] Last Admin: 06/16/17 22:24 Dose: 500 mg Emollient Ointment (Lanolin Topical Ointment -) 1 applic TP BID [facility] Last Admin: 06/16/17 22:25 Dose: 1 applic Escitalopram Oxalate (Lexapro -) 20 mg PO DAILY [facility] Last Admin: 06/16/17 10:18 Dose: 20 mg Ferrous Sulfate (Feosol -) 325 mg PO BID [facility] Last Admin: 06/16/17 22:24 Dose: 325 mg Heparin Sodium (Porcine) (Heparin -) 5,000 unit SQ BID [facility] Last Admin: 06/16/17 22:24 Dose: 5,000 unit Sodium Chloride (Normal Saline -) 1,000 mls @ 75 mls/hr IV ASDIR [facility] Last Admin: 06/16/17 18:17 Dose: Not Given Piperacillin/Tazobactam/Dextrose (Zosyn 2.25gm Ivpb (Premix)) 50 mls @ 100 mls/ hr IVPB Q8H-IV CINTHYA PRN Reason: Protocol Last Admin: 06/17/17 01:27 EST Dose: 100 mls/hr Multivitamins/Minerals/Vitamin C (Tab-A-Vit -) 1 tab PO DAILY [facility] Last Admin: 06/16/17 10:17 Dose: 1 tab Nystatin (Nystop Powder -) 1 applic TP BID [facility] Last Admin: 06/16/17 22:24 Dose: 1 applic Olanzapine 2.5 mg/ Olanzapine (5 mg) 7.5 mg PO DAILY [facility] Last Admin: 06/16/17 10:19 Dose: 7.5 mg Gityo-7-Xuic Ethyl Esters (Lovaza -) 1 gm PO DAILY [facility] Last Admin: 06/16/17 10:18 Dose: 1 gm Ranitidine HCl (Zantac -) 150 mg PO BID [facility] Last Admin: 06/16/17 22:24 Dose: 150 mg Tamsulosin HCl (Flomax -) 0.4 mg PO DAILY [facility] Last Admin: 06/16/17 10:18 Dose: 0.4 mg Triamcinolone Acetonide (Aristocort 0.1% Lotion -) 1 applic TP BID [facility] Last Admin: 06/16/17 22:25 Dose: 1 applic - Objective Vital Signs: Vital Signs Temperature 98.1 F 06/17/17 05:00 Pulse Rate 50 L 06/17/17 05:00 Respiratory Rate 20 06/17/17 05:00 Blood Pressure 133/70 06/17/17 05:00 O2 Sat by Pulse Oximetry (%) 97 06/16/17 20:49 Neck: Yes: Supple Cardiovascular: Yes: Pulse Irregular, Murmur (Soft SM), S1, S2 Respiratory: Yes: Diminished Gastrointestinal: Yes: Normal Bowel Sounds, Soft. No: Tenderness Edema: No Labs: CBC, BMP 06/17/17 05:10 06/17/17 05:10 Problem List - Problems (1) Bradycardia Code(s): R00.1 - BRADYCARDIA, UNSPECIFIED (2) Metabolic encephalopathy Code(s): G93.41 - METABOLIC ENCEPHALOPATHY (3) Acute on chronic renal failure Code(s): N17.9 - ACUTE KIDNEY FAILURE, UNSPECIFIED N18.9 - CHRONIC KIDNEY DISEASE, UNSPECIFIED (4) Anemia Code(s): D64.9 - ANEMIA, UNSPECIFIED Qualifiers: 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 Code(s): D50.0 - Iron deficiency anemia secondary to blood loss (chronic); D50.0 - Iron deficiency anemia secondary to blood loss (chronic) (5) CAD (coronary artery disease) Code(s): I25.10 - ATHSCL HEART DISEASE OF [place] CORONARY ARTERY W/O ANG PCTRS (6) Dementia Code(s): F03.90 - UNSPECIFIED DEMENTIA WITHOUT BEHAVIORAL DISTURBANCE (7) HTN (hypertension) Code(s): I10 - ESSENTIAL (PRIMARY) HYPERTENSION (8) Schizo-affective schizophrenia, chronic condition Code(s): F25.8 - OTHER SCHIZOAFFECTIVE DISORDERS (9) Sepsis Code(s): A41.9 - SEPSIS, UNSPECIFIED ORGANISM Qualifiers: Sepsis type: sepsis due to unspecified organism Qualified Code(s): A41.9 - Sepsis, unspecified organism; A41.9 - Sepsis, unspecified organism; A41.9 - Sepsis, unspecified organism (10) UTI (urinary tract infection) Code(s): N39.0 - URINARY TRACT INFECTION, SITE NOT SPECIFIED Qualifiers: Urinary tract infection type: site unspecified Hematuria presence: without hematuria Qualified Code(s): N39.0 - Urinary tract infection, site not specified; N39.0 - Urinary tract infection, site not specified; R31.9 - Hematuria, unspecified; R31.9 - Hematuria, unspecified Assessment/Plan 1. Sepsis source with toxic metabolic encephalopathy 2. Slow AF and sick sinus syndrome 3. Diastolic dysfunction with moderate 4. HTN/HCVD 5. CAD, angina pectoris 6. Dementia - Alzheimer's Type 7. Acute on CKD with hyperkalemia 8. Anemia PLAN: 1. Judicious IVF with monitoring renal function 2. Avoid AV micha agents - currently off all cardiac medications 3. Antibiotic coverage 4. DVT and GI prophylaxis 5. Continue to monitor on telemetry. In view of overall, medical condition, despite above findings of pauses, would not pursue PPM at this time unless otherwise strongly indicated Further plans are to follow Enrrique Pérez MD
[2017-06-17] MEDS: OMEGA-3 ACID ETHYL ESTERS (FATTY-ACIDS) 1 GM CAPSULE (FP) PO SCH (10:36)
[2017-06-17] MEDS: TRIAMCINOLONE ACET 0.1% 60 ML LOTION TP SCH ×2 (10:36→22:21)
[2017-06-17] MEDS: TAMSULOSIN HCL 0.4 MG CAP.ER.24H (FP) PO SCH (10:36)
[2017-06-17] MEDS: MULTIVITAMINS (DAILY MVI) TABLET (FP) PO SCH (10:36)
[2017-06-17] MEDS: RANITIDINE HCL 150 MG TABLET (FP) PO SCH ×2 (10:36→22:20)
[2017-06-17] MEDS: ASCORBIC ACID 500 MG TABLET (FP) PO SCH ×2 (10:36→22:20)
[2017-06-17] MEDS: ESCITALOPRAM OXALATE 20 MG TABLET (FP) PO SCH (10:36)
[2017-06-17] MEDS: FERROUS SO4 325 MG TABLET (FP) PO SCH ×2 (10:36→22:20)
[2017-06-17] MEDS: LANOLIN (EMOLL) 30 GM TUBE TP SCH ×2 (10:37→22:21)
[2017-06-17] MEDS: NYSTATIN POWDER 100,000 UNITS/GM - 15 GM TOPICAL POWDER TP SCH ×2 (10:37→22:21)
[2017-06-17] MEDS: HEPARIN NA (PORCINE) 5,000 UNITS/ML 1ML VIAL SQ SCH ×2 (10:37→22:21)
[2017-06-17] MEDS: OLANZAPINE 2.5 MG, OLANZAPINE 5 MG PO SCH (10:38)
--- NOTE | 2017-06-17 10:56 | PN ---
Progress Note (short form) - Note Progress Note: Patient seen and examined Chart reviewed. Patient currently lethargic, but more responsive with less mild stridor/expiratory wheeze. Possible aspiration. Labs, problem list, radiologic procedures and progress notes reviewed. Selected Entries 06/16/17 06/17/17 20:49 05:00 Temperature 98.1 F Pulse Rate 50 L Respiratory 20 Rate Blood Pressure 133/70 O2 Sat by Pulse 97 Oximetry (%) Oxygen Delivery Nasal Cannula Method Oxygen Flow 4 Rate Laboratory Tests 06/17/17 06/17/17 05:10 05:10 WBC 8.3 Hgb 8.2 L Hct 25.2 L Plt Count 206 Sodium 147 H Potassium 4.4 Chloride 114 H Carbon Dioxide 21 BUN 64 H Creatinine 4.2 H Random Glucose 82 Calcium 7.8 L Phosphorus 5.6 H Magnesium 2.1 Chest NO upper airway stridor Mild expiratory wheeze Cor Irregular Telemetry AFib with marked bradycardia Abd Distended No pain Ext Mild edema Neuro Encephalopathic No new focal deficit Assessment and Plan Respiratory insufficiency Etiology of recent "wheezing" unclear Appears to be related mostly to upper airway congestion (possible aspiration) as lower lung costello are clear (with decreased breath sounds), but CHF exacerbation must be considered. Monitor fluid management closely Anemia 8.5/25.7??8.2/25.2 CRI Renal follow-up BUN/Cr 65/4.2>>64/4.2 Hyperphosphatemia 5.6 Monitor in setting of CRI ASHD/CHF with h/o preserved LV function Aortic Stenosis Monitor Hypoalbuminemia Chronic Hypothyroid Mild elevation of TSH 7.3 May be worthwhile to check Free T4 in light of marked bradycardia BPH Stable Metabolic encephalopathy Bradycardia Prolonged pauses on telemetry H/O SSS UTI Stable Dementia Chronic stable HTN Stable Hyperkalemia Monitor DNR/DNI Continue current supportive care Swallowing evaluation
--- NOTE | 2017-06-17 13:55 | CONSULT ---
Admitting History and Physical - Primary Care Physician PCP: Chris Jiang - Admission History of Present Illness: Per chart:86 year old gentleman with PMhx of CHF with preserved LVF, CKD Stage 4 (baseline Cr ~2.5), BPH who presented from [place] with SOB and admitted for suspected sepsis Respiratory insufficiency Etiology of recent "wheezing" unclear Appears to be related mostly to upper airway congestion (possible aspiration) as lower lung costello are clear (with decreased breath sounds), but CHF exacerbation must be considered. Monitor fluid management closely Selected Entries 06/16/17 06/16/17 06/16/17 02:00 06:00 10:31 Breakfast 50% Lunch Supper Temperature 98 F 97.8 F 06/16/17 06/16/17 06/16/17 14:00 18:49 20:58 Breakfast Lunch 50% Supper Temperature 97.3 F L 97.1 F L 97.3 F L 06/16/17 06/17/17 06/17/17 21:43 01:00 EST 05:00 Breakfast Lunch Supper 25% Temperature 97.3 F L 98.1 F 06/17/17 09:00 Breakfast Lunch Supper Temperature 98.8 F Laboratory Tests 06/17/17 05:10 WBC 8.3 Pt seen by me in Apr 2017 admission, downgraDED from reg/thin to puree/nectar due to signs of asopiration. Pt was on a pureed diet and nectar thick liquid at [facility]. Chopped diet/thin liquid ordered during this admission at [facility]. Pt is verbal, confused, asking for a knife to cut off his restraint. He thinks he is home. Frequent expiratory wheeze. 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 duo bx neg) - Advance Directives Advance Directives: Yes: DNR - Smoking History Smoking history: Unknown if ever smoked Have you smoked in the past 12 months: No Aproximately how many cigarettes per day: 15 If you are a former smoker, when did you quit?: does not remember - Alcohol/Substance Use Hx Alcohol Use: No - Social History ADL: Support Services History of Recent Travel: No History - Admission Reason For Visit: BRADYCARDIA - Diagnostics X-ray: Report Reviewed - General Mental Status: Awake and Alert, Confused, Flat Affect Attention: Distractible, Mild Impairment, Moderate Impairment Ability to Follow Directions: Fair Head/Neck Control: Fair - Hearing Hearing: Impaired Hearing Aide: No With Patient: No Speech Evaluation - Communication Primary Language: [place] Communication: Yes: Simple Responses Oral Expression Ability: Yes: Mild Impairment, Moderate Impairment - Speech Production Intelligibility: Yes: Mildly Impaired, Moderately Impaired - Speech Characteristics Voice Loudness: Mildly Soft/Quiet, Moderately Soft/Quiet Voice Phonatory-based Quality: Yes: Dysphonia (expiratory wheeze) Speech Clarity: < 75% Articulation: Yes: Precise Voice, Other Observations: Yes: Progressively Weak Voice, Inadequate Breath Support - Language/Auditory Comprehension Follows: Yes: 1 Stage Simple Commands Observation: Comprehends Conversational Speech: Yes (simple) - Language/Verbal Expression Aphasia: Yes: Anomia - Swallow Evaluation/Bedside Assessment Current Nutritional Intake: Thin Liquids, Other (chopped) Facial Symmetry at Rest: Symmetrical Velopharyngeal Movement: Normal Laryngeal Elevation: Impaired Laryngeal Movement: Reduced Excursion, Labored,delay initiation A-P Transit: WFL Coughing/Throat Clear: Yes Recommendations - Speech Evaluation, Impression/Plan Impression: r/o aspiration. Expiratory wheeze. Poor PO acceptance.Confused. - Dysphagia Impressions/Plan Dysphagia Impressions: Ongoing Evaluation, Suspect Aspiration *Silent aspiration: cannot be R/O at bedside Recommendations: MBS w Esophagus (on 06/19/17 once pulmonary status improved.) - Recommendations Diet Consistency: Dysphagia Pureed Liquids: [place] Thick Supplement: Magic Cup
[2017-06-17] MEDS: SODIUM CHLORIDE 1,000 ML IV SCH (17:24)
[2017-06-18] MEDS ORDERED: PT OWN MED DRAWER 7, Y5N ONE ×2 (03:15→09:42)
[2017-06-18] MEDS: PIPERACILLIN/TAZOB 2.25 GM 50 ML IVPB SCH ×2 (03:38→10:02)
[2017-06-18 07:33] LABS: BASOPHIL 0.3 % (0-2.0); MCH 29.2 pg (25.7-33.7); MCHC 32.5 g/dl (32.0-35.9); MEAN CELL VOLUME 89.8 fl (80-96); MEAN PLT VOLUME 8.4 fl (7.5-11.1); NEUTROPHILS 83.5 % (42.8-82.8); PLATELET COUNT 212 K/MM3 (134-434); RDW 16.6 % (11.9-15.9); WHITE BLOOD COUNT 7.7 K/mm3 (4.0-10.0)
[2017-06-18 08:08] LABS: ANION GAP 14 (8-16); CO2 21 mmol/L (21-32); MAGNESIUM 2.1 mg/dL (1.8-2.4); PHOSPHOROUS 6.3 mg/dL (2.5-4.9); SGOT/AST 9 U/L (15-37); SGPT/ALT 25 U/L (12-78)
[2017-06-18 08:11] LABS: ALBUMIN 2.3 g/dl (3.4-5.0); ALK PHOS 130 U/L (45-117); BILIRUBIN,TOTAL 0.3 mg/dL (0.2-1.0); CREATININE 4.4 mg/dL (0.7-1.3); GLUCOSE,RANDOM 89 mg/dL (74-106); TOT PROT 5.4 g/dl (6.4-8.2)
[2017-06-18] MEDS: MULTIVITAMINS (DAILY MVI) TABLET (FP) PO SCH (09:37)
[2017-06-18] MEDS: TAMSULOSIN HCL 0.4 MG CAP.ER.24H (FP) PO SCH (09:37)
[2017-06-18] MEDS: ASCORBIC ACID 500 MG TABLET (FP) PO SCH ×2 (09:37→21:46)
[2017-06-18] MEDS: ESCITALOPRAM OXALATE 20 MG TABLET (FP) PO SCH (09:37)
[2017-06-18] MEDS: RANITIDINE HCL 150 MG TABLET (FP) PO SCH ×2 (09:37→21:46)
[2017-06-18] MEDS: OMEGA-3 ACID ETHYL ESTERS (FATTY-ACIDS) 1 GM CAPSULE (FP) PO SCH (09:37)
[2017-06-18] MEDS: FERROUS SO4 325 MG TABLET (FP) PO SCH ×2 (09:37→21:46)
[2017-06-18] MEDS: LANOLIN (EMOLL) 30 GM TUBE TP SCH ×2 (09:43→21:48)
[2017-06-18] MEDS: NYSTATIN POWDER 100,000 UNITS/GM - 15 GM TOPICAL POWDER TP SCH ×2 (09:43→21:47)
[2017-06-18] MEDS: HEPARIN NA (PORCINE) 5,000 UNITS/ML 1ML VIAL SQ SCH ×2 (09:44→21:46)
--- NOTE | 2017-06-18 10:49 | PN ---
Progress Note, Physician Chief Complaint: Events noted Lethargic Bradycardia and pauses noted on the monitor Currently appears to be in sinus rhythm History of Present Illness: Patient was seen and examined. Lethargic. Chart was reviewed Periods of bradycardia but in sinus rhythm. No change - Current Medication List Current Medications: Active Medications Acetaminophen (Tylenol -) 650 mg PO Q4H PRN PRN Reason: FEVER OR PAIN Albuterol/Ipratropium (Duoneb -) 1 amp NEB Q6H PRN PRN Reason: SHORTNESS OF BREATH Last Admin: 06/17/17 22:25 Dose: 1 amp Ascorbic Acid (Vitamin C -) 500 mg PO BID [facility] Last Admin: 06/18/17 09:37 Dose: 500 mg Emollient Ointment (Lanolin Topical Ointment -) 1 applic TP BID [facility] Last Admin: 06/18/17 09:43 Dose: 1 applic Escitalopram Oxalate (Lexapro -) 20 mg PO DAILY [facility] Last Admin: 06/18/17 09:37 Dose: 20 mg Ferrous Sulfate (Feosol -) 325 mg PO BID [facility] Last Admin: 06/18/17 09:37 Dose: 325 mg Heparin Sodium (Porcine) (Heparin -) 5,000 unit SQ BID [facility] Last Admin: 06/18/17 09:44 Dose: 5,000 unit Sodium Chloride (Normal Saline -) 1,000 mls @ 75 mls/hr IV ASDIR [facility] Last Admin: 06/17/17 17:24 Dose: Not Given Piperacillin/Tazobactam/Dextrose (Zosyn 2.25gm Ivpb (Premix)) 50 mls @ 100 mls/ hr IVPB Q8H-IV CINTHYA PRN Reason: Protocol Last Admin: 06/18/17 10:02 Dose: 100 mls/hr Multivitamins/Minerals/Vitamin C (Tab-A-Vit -) 1 tab PO DAILY [facility] Last Admin: 06/18/17 09:37 Dose: 1 tab Nystatin (Nystop Powder -) 1 applic TP BID [facility] Last Admin: 06/18/17 09:43 Dose: 1 applic Olanzapine 2.5 mg/ Olanzapine (5 mg) 7.5 mg PO DAILY [facility] Last Admin: 06/17/17 10:38 Dose: 7.5 mg Rgxfw-1-Vwst Ethyl Esters (Lovaza -) 1 gm PO DAILY [facility] Last Admin: 06/18/17 09:37 Dose: Not Given Ranitidine HCl (Zantac -) 150 mg PO BID [facility] Last Admin: 06/18/17 09:37 Dose: 150 mg Tamsulosin HCl (Flomax -) 0.4 mg PO DAILY [facility] Last Admin: 06/18/17 09:37 Dose: 0.4 mg Triamcinolone Acetonide (Aristocort 0.1% Lotion -) 1 applic TP BID [facility] Last Admin: 06/17/17 22:21 Dose: 1 applic - Objective Vital Signs: Vital Signs Temperature 97.8 F 06/18/17 10:33 Pulse Rate 75 06/18/17 10:33 Respiratory Rate 21 06/18/17 10:33 Blood Pressure 144/96 06/18/17 10:33 O2 Sat by Pulse Oximetry (%) 95 06/17/17 21:00 Neck: Yes: Supple Cardiovascular: Yes: Pulse Irregular, Murmur (Soft SM), S1, S2 Respiratory: Yes: Diminished Gastrointestinal: Yes: Normal Bowel Sounds, Soft. No: Tenderness Edema: No Labs: CBC, BMP 06/18/17 05:18 06/18/17 05:18 Problem List - Problems (1) Bradycardia Code(s): R00.1 - BRADYCARDIA, UNSPECIFIED (2) Metabolic encephalopathy Code(s): G93.41 - METABOLIC ENCEPHALOPATHY (3) Acute on chronic renal failure Code(s): N17.9 - ACUTE KIDNEY FAILURE, UNSPECIFIED N18.9 - CHRONIC KIDNEY DISEASE, UNSPECIFIED (4) Anemia Code(s): D64.9 - ANEMIA, UNSPECIFIED Qualifiers: 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 Code(s): D50.0 - Iron deficiency anemia secondary to blood loss (chronic); D50.0 - Iron deficiency anemia secondary to blood loss (chronic) (5) CAD (coronary artery disease) Code(s): I25.10 - ATHSCL HEART DISEASE OF [place] CORONARY ARTERY W/O ANG PCTRS (6) Dementia Code(s): F03.90 - UNSPECIFIED DEMENTIA WITHOUT BEHAVIORAL DISTURBANCE (7) HTN (hypertension) Code(s): I10 - ESSENTIAL (PRIMARY) HYPERTENSION (8) Schizo-affective schizophrenia, chronic condition Code(s): F25.8 - OTHER SCHIZOAFFECTIVE DISORDERS (9) Sepsis Code(s): A41.9 - SEPSIS, UNSPECIFIED ORGANISM Qualifiers: Sepsis type: sepsis due to unspecified organism Qualified Code(s): A41.9 - Sepsis, unspecified organism; A41.9 - Sepsis, unspecified organism; A41.9 - Sepsis, unspecified organism (10) UTI (urinary tract infection) Code(s): N39.0 - URINARY TRACT INFECTION, SITE NOT SPECIFIED Qualifiers: Urinary tract infection type: site unspecified Hematuria presence: without hematuria Qualified Code(s): N39.0 - Urinary tract infection, site not specified; N39.0 - Urinary tract infection, site not specified; R31.9 - Hematuria, unspecified; R31.9 - Hematuria, unspecified Assessment/Plan 1. Sepsis source with toxic metabolic encephalopathy 2. Slow AF and sick sinus syndrome 3. Diastolic dysfunction with moderate 4. HTN/HCVD 5. CAD, angina pectoris 6. Dementia - Alzheimer's Type 7. Acute on CKD with hyperkalemia 8. Anemia PLAN: 1. Judicious IVF with monitoring renal function 2. Avoid AV micha agents - currently off all cardiac medications 3. Antibiotic coverage 4. DVT and GI prophylaxis 5. Continue to monitor on telemetry. In view of overall, medical condition, despite above findings of pauses, would not pursue PPM at this time unless otherwise strongly indicated. Conservative management Further plans are to follow Enrrique Pérez MD
[2017-06-18] MEDS: OLANZAPINE 2.5 MG, OLANZAPINE 5 MG PO SCH ×2 (11:32→12:12)
[2017-06-18] MEDS: ALBUTEROL SO4 2.5/IPRATROPIUM 0.5 INH SOL 3 ML VIAL.NEB. NEB PRN (11:50)
[2017-06-18] MEDS: TRIAMCINOLONE ACET 0.1% 60 ML LOTION TP SCH ×2 (12:09→21:47)
--- NOTE | 2017-06-18 13:45 | PN ---
Progress Note, Physician Chief Complaint: Unable to obtain - Current Medication List Current Medications: Active Medications Acetaminophen (Tylenol -) 650 mg PO Q4H PRN PRN Reason: FEVER OR PAIN Albuterol/Ipratropium (Duoneb -) 1 amp NEB Q6H PRN PRN Reason: SHORTNESS OF BREATH Last Admin: 06/18/17 11:50 Dose: 1 amp Ascorbic Acid (Vitamin C -) 500 mg PO BID [facility] Last Admin: 06/18/17 09:37 Dose: 500 mg Emollient Ointment (Lanolin Topical Ointment -) 1 applic TP BID [facility] Last Admin: 06/18/17 09:43 Dose: 1 applic Escitalopram Oxalate (Lexapro -) 20 mg PO DAILY [facility] Last Admin: 06/18/17 09:37 Dose: 20 mg Ferrous Sulfate (Feosol -) 325 mg PO BID [facility] Last Admin: 06/18/17 09:37 Dose: 325 mg Heparin Sodium (Porcine) (Heparin -) 5,000 unit SQ BID [facility] Last Admin: 06/18/17 09:44 Dose: 5,000 unit Sodium Chloride (Normal Saline -) 1,000 mls @ 75 mls/hr IV ASDIR [facility] Last Admin: 06/17/17 17:24 Dose: Not Given Piperacillin/Tazobactam/Dextrose (Zosyn 2.25gm Ivpb (Premix)) 50 mls @ 100 mls/ hr IVPB Q8H-IV CINTHYA PRN Reason: Protocol Last Admin: 06/18/17 10:02 Dose: 100 mls/hr Multivitamins/Minerals/Vitamin C (Tab-A-Vit -) 1 tab PO DAILY [facility] Last Admin: 06/18/17 09:37 Dose: 1 tab Nystatin (Nystop Powder -) 1 applic TP BID [facility] Last Admin: 06/18/17 09:43 Dose: 1 applic Olanzapine 2.5 mg/ Olanzapine (5 mg) 7.5 mg PO DAILY [facility] Last Admin: 06/18/17 12:12 Dose: 7.5 mg Cvgax-4-Xcit Ethyl Esters (Lovaza -) 1 gm PO DAILY [facility] Last Admin: 06/18/17 09:37 Dose: Not Given Ranitidine HCl (Zantac -) 150 mg PO BID [facility] Last Admin: 06/18/17 09:37 Dose: 150 mg Tamsulosin HCl (Flomax -) 0.4 mg PO DAILY [facility] Last Admin: 06/18/17 09:37 Dose: 0.4 mg Triamcinolone Acetonide (Aristocort 0.1% Lotion -) 1 applic TP BID [facility] Last Admin: 06/18/17 12:09 Dose: 1 applic - Objective Vital Signs: Vital Signs Temperature 36.6 C 06/18/17 10:33 Pulse Rate 74 06/18/17 11:49 Respiratory Rate 21 06/18/17 10:33 Blood Pressure 144/96 06/18/17 10:33 O2 Sat by Pulse Oximetry (%) 95 06/18/17 11:49 Constitutional: Yes: Well Nourished, No Distress, Calm Cardiovascular: Yes: Regular Rate and Rhythm. No: Gallop, Murmur, Rub Respiratory: Yes: Regular, On Nasal O2. No: CTA Bilaterally, Rales, Wheezes Gastrointestinal: Yes: Normal Bowel Sounds, Soft. No: Distention, Tenderness Extremities: Yes: WNL Edema: No Labs: CBC, BMP 06/18/17 05:18 06/18/17 05:18 INR, PTT INR 1.01 (0.82-1.09) 06/14/17 11:00 Problem List - Problems (1) Sepsis Code(s): A41.9 - SEPSIS, UNSPECIFIED ORGANISM Qualifiers: Sepsis type: sepsis due to unspecified organism Qualified Code(s): A41.9 - Sepsis, unspecified organism; A41.9 - Sepsis, unspecified organism; A41.9 - Sepsis, unspecified organism (2) Metabolic encephalopathy Code(s): G93.41 - METABOLIC ENCEPHALOPATHY (3) Bradycardia Code(s): R00.1 - BRADYCARDIA, UNSPECIFIED (4) UTI (urinary tract infection) Code(s): N39.0 - URINARY TRACT INFECTION, SITE NOT SPECIFIED Qualifiers: Urinary tract infection type: site unspecified Hematuria presence: without hematuria Qualified Code(s): N39.0 - Urinary tract infection, site not specified; N39.0 - Urinary tract infection, site not specified; R31.9 - Hematuria, unspecified; R31.9 - Hematuria, unspecified (5) Acute on chronic renal failure Code(s): N17.9 - ACUTE KIDNEY FAILURE, UNSPECIFIED N18.9 - CHRONIC KIDNEY DISEASE, UNSPECIFIED (6) Hyperkalemia Code(s): E87.5 - HYPERKALEMIA (7) Anemia Code(s): D64.9 - ANEMIA, UNSPECIFIED Qualifiers: 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 Code(s): D50.0 - Iron deficiency anemia secondary to blood loss (chronic); D50.0 - Iron deficiency anemia secondary to blood loss (chronic) (8) CAD (coronary artery disease) Code(s): I25.10 - ATHSCL HEART DISEASE OF [place] CORONARY ARTERY W/O ANG PCTRS (9) CHF (congestive heart failure) Code(s): I50.9 - HEART FAILURE, UNSPECIFIED Qualifiers: Congestive heart failure type: diastolic Congestive heart failure chronicity: chronic Qualified Code(s): I50.32 - Chronic diastolic ( congestive) heart failure; I50.32 - Chronic diastolic (congestive) heart failure ; I50.32 - Chronic diastolic (congestive) heart failure; I50.32 - Chronic diastolic (congestive) heart failure (10) Dementia Code(s): F03.90 - UNSPECIFIED DEMENTIA WITHOUT BEHAVIORAL DISTURBANCE (11) HTN (hypertension) Code(s): I10 - ESSENTIAL (PRIMARY) HYPERTENSION Assessment/Plan (1) Sepsis Assessment/Plan: -appreciate ID assistance -cultures NGTD -zosyn discontinued per ID Code(s): A41.9 - SEPSIS, UNSPECIFIED ORGANISM Qualifiers: Sepsis type: sepsis due to unspecified organism Qualified Code(s): A41.9 - Sepsis, unspecified organism; A41.9 - Sepsis, unspecified organism; A41.9 - Sepsis, unspecified organism (2) Metabolic encephalopathy Assessment/Plan: -unchanged -continue treating underlying condition -however suspect exacerbated by hypoperfusion from sick sinus syndrome with symptomatic bradycardia Code(s): G93.41 - METABOLIC ENCEPHALOPATHY (3) Bradycardia/sick sinus rhythm Assessment/Plan: -appreciate cardiology assistance -continue monitoring -off all medications that affect heart rate Code(s): R00.1 - BRADYCARDIA, UNSPECIFIED (4) UTI (urinary tract infection) Assessment/Plan: -urine culture NGTD Code(s): N39.0 - URINARY TRACT INFECTION, SITE NOT SPECIFIED Qualifiers: Urinary tract infection type: site unspecified Hematuria presence: without hematuria Qualified Code(s): N39.0 - Urinary tract infection, site not specified; N39.0 - Urinary tract infection, site not specified; R31.9 - Hematuria, unspecified; R31.9 - Hematuria, unspecified (5) Acute on chronic renal failure Assessment/Plan: -case d/w Dr Mercedes -stop IVF and give small amount of lasix to prevent fluid overload Code(s): N17.9 - ACUTE KIDNEY FAILURE, UNSPECIFIED N18.9 - CHRONIC KIDNEY DISEASE, UNSPECIFIED (6) Hyperkalemia Assessment/Plan: -resolved Code(s): E87.5 - HYPERKALEMIA (7) Anemia Assessment/Plan: -above baseline -continue iron Code(s): D64.9 - ANEMIA, UNSPECIFIED Qualifiers: 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 Code(s): D50.0 - Iron deficiency anemia secondary to blood loss (chronic); D50.0 - Iron deficiency anemia secondary to blood loss (chronic) (8) CAD (coronary artery disease) Assessment/Plan: -with sick sinus syndrome Code(s): I25.10 - ATHSCL HEART DISEASE OF [place] CORONARY ARTERY W/O ANG PCTRS (9) CHF (congestive heart failure) Assessment/Plan: -effusions noted on chest x-ray -lasix per nephrology Code(s): I50.9 - HEART FAILURE, UNSPECIFIED Qualifiers: Congestive heart failure type: diastolic Congestive heart failure chronicity: chronic Qualified Code(s): I50.32 - Chronic diastolic ( congestive) heart failure; I50.32 - Chronic diastolic (congestive) heart failure ; I50.32 - Chronic diastolic (congestive) heart failure; I50.32 - Chronic diastolic (congestive) heart failure (10) Dementia Assessment/Plan: -exacerbated by sepsis -continue olanzapine -holding perphenazine Code(s): F03.90 - UNSPECIFIED DEMENTIA WITHOUT BEHAVIORAL DISTURBANCE (11) HTN (hypertension) Assessment/Plan: -monitor Code(s): I10 - ESSENTIAL (PRIMARY) HYPERTENSION
--- NOTE | 2017-06-18 14:00 | PN ---
Progress Note, Physician History of Present Illness: stable no new issues calm - Current Medication List Current Medications: Active Medications Acetaminophen (Tylenol -) 650 mg PO Q4H PRN PRN Reason: FEVER OR PAIN Albuterol/Ipratropium (Duoneb -) 1 amp NEB Q6H PRN PRN Reason: SHORTNESS OF BREATH Last Admin: 06/18/17 11:50 Dose: 1 amp Ascorbic Acid (Vitamin C -) 500 mg PO BID [facility] Last Admin: 06/18/17 09:37 Dose: 500 mg Emollient Ointment (Lanolin Topical Ointment -) 1 applic TP BID [facility] Last Admin: 06/18/17 09:43 Dose: 1 applic Escitalopram Oxalate (Lexapro -) 20 mg PO DAILY [facility] Last Admin: 06/18/17 09:37 Dose: 20 mg Ferrous Sulfate (Feosol -) 325 mg PO BID [facility] Last Admin: 06/18/17 09:37 Dose: 325 mg Heparin Sodium (Porcine) (Heparin -) 5,000 unit SQ BID [facility] Last Admin: 06/18/17 09:44 Dose: 5,000 unit Sodium Chloride (Normal Saline -) 1,000 mls @ 75 mls/hr IV ASDIR [facility] Last Admin: 06/17/17 17:24 Dose: Not Given Piperacillin/Tazobactam/Dextrose (Zosyn 2.25gm Ivpb (Premix)) 50 mls @ 100 mls/ hr IVPB Q8H-IV [facility] PRN Reason: Protocol Last Admin: 06/18/17 10:02 Dose: 100 mls/hr Multivitamins/Minerals/Vitamin C (Tab-A-Vit -) 1 tab PO DAILY [facility] Last Admin: 06/18/17 09:37 Dose: 1 tab Nystatin (Nystop Powder -) 1 applic TP BID [facility] Last Admin: 06/18/17 09:43 Dose: 1 applic Olanzapine 2.5 mg/ Olanzapine (5 mg) 7.5 mg PO DAILY [facility] Last Admin: 06/18/17 12:12 Dose: 7.5 mg Rfzvh-1-Dkhb Ethyl Esters (Lovaza -) 1 gm PO DAILY [facility] Last Admin: 06/18/17 09:37 Dose: Not Given Ranitidine HCl (Zantac -) 150 mg PO BID [facility] Last Admin: 06/18/17 09:37 Dose: 150 mg Tamsulosin HCl (Flomax -) 0.4 mg PO DAILY [facility] Last Admin: 06/18/17 09:37 Dose: 0.4 mg Triamcinolone Acetonide (Aristocort 0.1% Lotion -) 1 applic TP BID [facility] Last Admin: 06/18/17 12:09 Dose: 1 applic - Objective Vital Signs: Vital Signs Temperature 97.8 F 06/18/17 13:46 Pulse Rate 73 06/18/17 13:46 Respiratory Rate 21 06/18/17 13:46 Blood Pressure 163/76 06/18/17 13:46 O2 Sat by Pulse Oximetry (%) 95 06/18/17 11:49 Constitutional: Yes: No Distress, Calm Cardiovascular: Yes: Regular Rate and Rhythm Respiratory: Yes: Regular, CTA Bilaterally Gastrointestinal: Yes: Normal Bowel Sounds, Soft Musculoskeletal: Yes: Other Extremities: Yes: Other Neurological: Yes: Alert Psychiatric: Yes: Alert Labs: CBC, BMP 06/18/17 05:18 06/18/17 05:18 INR, PTT INR 1.01 (0.82-1.09) 06/14/17 11:00 Assessment/Plan Problem List - Problems (1) Sepsis Code(s): A41.9 - SEPSIS, UNSPECIFIED ORGANISM Qualifiers: Sepsis type: sepsis due to unspecified organism Qualified Code(s): A41.9 - Sepsis, unspecified organism; A41.9 - Sepsis, unspecified organism; A41.9 - Sepsis, unspecified organism (2) Metabolic encephalopathy Code(s): G93.41 - METABOLIC ENCEPHALOPATHY (3) Bradycardia Code(s): R00.1 - BRADYCARDIA, UNSPECIFIED (4) UTI (urinary tract infection) Code(s): N39.0 - URINARY TRACT INFECTION, SITE NOT SPECIFIED Qualifiers: Urinary tract infection type: site unspecified Hematuria presence: without hematuria Qualified Code(s): N39.0 - Urinary tract infection, site not specified; N39.0 - Urinary tract infection, site not specified; R31.9 - Hematuria, unspecified; R31.9 - Hematuria, unspecified (5) Acute on chronic renal failure Code(s): N17.9 - ACUTE KIDNEY FAILURE, UNSPECIFIED N18.9 - CHRONIC KIDNEY DISEASE, UNSPECIFIED (6) Hyperkalemia Code(s): E87.5 - HYPERKALEMIA (7) Anemia Code(s): D64.9 - ANEMIA, UNSPECIFIED Qualifiers: 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 Code(s): D50.0 - Iron deficiency anemia secondary to blood loss (chronic); D50.0 - Iron deficiency anemia secondary to blood loss (chronic) (8) CAD (coronary artery disease) Code(s): I25.10 - ATHSCL HEART DISEASE OF [place] CORONARY ARTERY W/O ANG PCTRS (9) CHF (congestive heart failure) Code(s): I50.9 - HEART FAILURE, UNSPECIFIED Qualifiers: Congestive heart failure type: diastolic Congestive heart failure chronicity: chronic Qualified Code(s): I50.32 - Chronic diastolic ( congestive) heart failure; I50.32 - Chronic diastolic (congestive) heart failure ; I50.32 - Chronic diastolic (congestive) heart failure; I50.32 - Chronic diastolic (congestive) heart failure (10) Dementia Code(s): F03.90 - UNSPECIFIED DEMENTIA WITHOUT BEHAVIORAL DISTURBANCE (11) HTN (hypertension) Code(s): I10 - ESSENTIAL (PRIMARY) HYPERTENSION patient received vanco and zosyn plan will stop abx and watch continue monitoring will see how patient does rest as per primary
--- NOTE | 2017-06-18 14:02 | PN ---
Progress Note (short form) - Note Progress Note: Renal follow up for SUZI on CKD Pt seen and examined a the bedside awake and alert no acute complaints Vital Signs Temperature 97.8 F 06/18/17 13:46 Pulse Rate 73 06/18/17 13:46 Respiratory Rate 21 06/18/17 13:46 Blood Pressure 163/76 06/18/17 13:46 O2 Sat by Pulse Oximetry (%) 95 06/18/17 11:49 Intake & Output 06/16/17 06/17/17 06/17/17 06/18/17 00:59 00:59 23:59 23:59 Intake Total Output Total 200 Balance -200 NAD awake and alert bradycardic + congestion on lung costello soft NT/ND No LE edmea CBC, BMP 06/18/17 05:18 06/18/17 05:18 Current Medications Acetaminophen (Tylenol -) 650 mg PO Q4H PRN PRN Reason: FEVER OR PAIN Albuterol/Ipratropium (Duoneb -) 1 amp NEB Q6H PRN PRN Reason: SHORTNESS OF BREATH Last Admin: 06/18/17 11:50 Dose: 1 amp Ascorbic Acid (Vitamin C -) 500 mg PO BID [facility] Last Admin: 06/18/17 09:37 Dose: 500 mg Emollient Ointment (Lanolin Topical Ointment -) 1 applic TP BID [facility] Last Admin: 06/18/17 09:43 Dose: 1 applic Escitalopram Oxalate (Lexapro -) 20 mg PO DAILY [facility] Last Admin: 06/18/17 09:37 Dose: 20 mg Ferrous Sulfate (Feosol -) 325 mg PO BID [facility] Last Admin: 06/18/17 09:37 Dose: 325 mg Heparin Sodium (Porcine) (Heparin -) 5,000 unit SQ BID [facility] Last Admin: 06/18/17 09:44 Dose: 5,000 unit Sodium Chloride (Normal Saline -) 1,000 mls @ 75 mls/hr IV ASDIR [facility] Last Admin: 06/17/17 17:24 Dose: Not Given Multivitamins/Minerals/Vitamin C (Tab-A-Vit -) 1 tab PO DAILY [facility] Last Admin: 06/18/17 09:37 Dose: 1 tab Nystatin (Nystop Powder -) 1 applic TP BID [facility] Last Admin: 06/18/17 09:43 Dose: 1 applic Olanzapine 2.5 mg/ Olanzapine (5 mg) 7.5 mg PO DAILY [facility] Last Admin: 06/18/17 12:12 Dose: 7.5 mg Ceybb-3-Suks Ethyl Esters (Lovaza -) 1 gm PO DAILY [facility] Last Admin: 06/18/17 09:37 Dose: Not Given Ranitidine HCl (Zantac -) 150 mg PO BID [facility] Last Admin: 06/18/17 09:37 Dose: 150 mg Tamsulosin HCl (Flomax -) 0.4 mg PO DAILY [facility] Last Admin: 06/18/17 09:37 Dose: 0.4 mg Triamcinolone Acetonide (Aristocort 0.1% Lotion -) 1 applic TP BID [facility] Last Admin: 06/18/17 12:09 Dose: 1 applic 86 year old gentleman with PMhx of CHF with preserved LVF, CKD Stage 4 ( baseline Cr ~2.5), BPH who presented from [place] with SOB and admitted for suspected sepsis with SUZI with Cr of 3.8. #Acute on Chronic renal insufficiency with hyperkalemia and mild volume expansion Renal function w/o improvement despite several days of IVF pt now with evidence of volume expansion will give Lasix IV x 1 now trend BUN/Cr no acute indication for [employer]SPORTATION [employer]INTE[employer]CE [employer] #Sepsis syndrome continue Emperic Abx f/u cultures reports Supportive care prognosis guarded DNR/DNI Teja Mercedes DO
[2017-06-18] MEDS ORDERED: FUROSEMIDE 40 MG/4 ML INJECTABLE VIAL IVPUSH ONE (14:03)
[2017-06-19 07:23] LABS: BASOPHIL 0.1 % (0-2.0); EOSINOPHIL 2.5 % (0-4.5); MCH 29.5 pg (25.7-33.7); MCHC 32.9 g/dl (32.0-35.9); MEAN CELL VOLUME 89.7 fl (80-96); MEAN PLT VOLUME 8.4 fl (7.5-11.1); NEUTROPHILS 85.1 % (42.8-82.8); PLATELET COUNT 205 K/MM3 (134-434); RDW 17.3 % (11.9-15.9); WHITE BLOOD COUNT 7.6 K/mm3 (4.0-10.0)
[2017-06-19 08:34] LABS: ANION GAP 12 (8-16); CALCIUM 7.8 mg/dL (8.5-10.1); CO2 21 mmol/L (21-32); CREATININE 4.5 mg/dL (0.7-1.3); GLUCOSE,RANDOM 91 mg/dL (74-106); MAGNESIUM 2.2 mg/dL (1.8-2.4); PHOSPHOROUS 6.1 mg/dL (2.5-4.9)
[2017-06-19 08:57] LABS: FREE T4 1.17 ng/dl (0.76-1.16)
[2017-06-19] MEDS ORDERED: PT OWN MED DRAWER 7, Y5N ONE ×2 (09:33→22:25)
[2017-06-19] MEDS: FERROUS SO4 325 MG TABLET (FP) PO SCH ×2 (09:36→22:27)
[2017-06-19] MEDS: OLANZAPINE 2.5 MG, OLANZAPINE 5 MG PO SCH (09:36)
[2017-06-19] MEDS: MULTIVITAMINS (DAILY MVI) TABLET (FP) PO SCH (09:36)
[2017-06-19] MEDS: OMEGA-3 ACID ETHYL ESTERS (FATTY-ACIDS) 1 GM CAPSULE (FP) PO SCH (09:36)
[2017-06-19] MEDS: TRIAMCINOLONE ACET 0.1% 60 ML LOTION TP SCH ×2 (09:36→22:28)
[2017-06-19] MEDS: TAMSULOSIN HCL 0.4 MG CAP.ER.24H (FP) PO SCH (09:36)
[2017-06-19] MEDS: RANITIDINE HCL 150 MG TABLET (FP) PO SCH ×2 (09:36→22:27)
[2017-06-19] MEDS: ESCITALOPRAM OXALATE 20 MG TABLET (FP) PO SCH (09:36)
[2017-06-19] MEDS: NYSTATIN POWDER 100,000 UNITS/GM - 15 GM TOPICAL POWDER TP SCH ×2 (09:37→22:28)
[2017-06-19] MEDS: ASCORBIC ACID 500 MG TABLET (FP) PO SCH ×2 (09:37→22:27)
[2017-06-19] MEDS: HEPARIN NA (PORCINE) 5,000 UNITS/ML 1ML VIAL SQ SCH ×2 (09:37→22:27)
[2017-06-19] MEDS: LANOLIN (EMOLL) 30 GM TUBE TP SCH ×2 (10:23→22:00)
[2017-06-19] MEDS: ALBUTEROL SO4 2.5/IPRATROPIUM 0.5 INH SOL 3 ML VIAL.NEB. NEB PRN (10:30)
--- NOTE | 2017-06-19 11:27 | PN ---
Progress Note (short form) - Note Progress Note: Chief Complaint: Events noted, notes reviewed, lethargic and not responsive to verbal commands, sinus rhythm is noted without any significant sinus bradycardia History of Present Illness: Seen and examined on telemetry. Events noted, notes reviewed, lethargic and not responsive to verbal commands, sinus rhythm is noted without any significant sinus bradycardia - Current Medication List Current Medications Acetaminophen (Tylenol -) 650 mg PO Q4H PRN PRN Reason: FEVER OR PAIN Albuterol/Ipratropium (Duoneb -) 1 amp NEB Q6H PRN PRN Reason: SHORTNESS OF BREATH Last Admin: 06/18/17 11:50 Dose: 1 amp Ascorbic Acid (Vitamin C -) 500 mg PO BID [facility] Last Admin: 06/19/17 09:37 Dose: 500 mg Emollient Ointment (Lanolin Topical Ointment -) 1 applic TP BID [facility] Last Admin: 06/19/17 10:23 Dose: Not Given Escitalopram Oxalate (Lexapro -) 20 mg PO DAILY [facility] Last Admin: 06/19/17 09:36 Dose: 20 mg Ferrous Sulfate (Feosol -) 325 mg PO BID [facility] Last Admin: 06/19/17 09:36 Dose: 325 mg Heparin Sodium (Porcine) (Heparin -) 5,000 unit SQ BID [facility] Last Admin: 06/19/17 09:37 Dose: 5,000 unit Multivitamins/Minerals/Vitamin C (Tab-A-Vit -) 1 tab PO DAILY [facility] Last Admin: 06/19/17 09:36 Dose: 1 tab Nystatin (Nystop Powder -) 1 applic TP BID [facility] Last Admin: 06/19/17 09:37 Dose: 1 applic Olanzapine 2.5 mg/ Olanzapine (5 mg) 7.5 mg PO DAILY [facility] Last Admin: 06/19/17 09:36 Dose: 7.5 mg [id number]-[id number] Ethyl Esters (Lovaza -) 1 gm PO DAILY [facility] Last Admin: 06/19/17 09:36 Dose: 1 gm Ranitidine HCl (Zantac -) 150 mg PO BID [facility] Last Admin: 06/19/17 09:36 Dose: 150 mg Tamsulosin HCl (Flomax -) 0.4 mg PO DAILY [facility] Last Admin: 06/19/17 09:36 Dose: 0.4 mg Triamcinolone Acetonide (Aristocort 0.1% Lotion -) 1 applic TP BID [facility] Last Admin: 06/19/17 09:36 Dose: 1 applic Review of Systems: Unable to obtain - Objective Vital Signs: Last Vital Signs Temp Pulse Resp BP Pulse Ox 98.2 F 82 19 149/62 94 L 06/19/17 09:02 06/19/17 09:02 06/19/17 09:02 06/19/17 09:02 06/18/17 21:00 Intake & Output 06/17/17 06/17/17 06/18/17 06/19/17 00:59 23:59 23:59 23:59 Intake Total 480 50 Output Total 1450 900 Balance -970 -850 Neck: Supple, negative JVD no bruit appreciated Cardiovascular: S1-S2 regular rate and rhythm grade 1-2/6 systolic ejection murmur Respiratory: Diminished Breath at the bases Gastrointestinal: soft benign Normal Bowel Sounds Ext: No edema Labs: CBC, BMP 06/19/17 05:10 06/19/17 05:10 Assessment/Plan ASSESSMENT: 1. Uro-sepsis with toxic metabolic encephalopathy 2. Atrial fibrillation with slow ventricular response most likely related to AV micha disease 3. Coronary artery disease angina pectoris 4. Diastolic dysfunction with chronic class I [place] [employer] classification left ventricular failure, compensated/euvolemic 5. Aortic stenosis moderate in severity 6. HTN 7. Dementia, organic brain syndrome 8. Acute on CKD 9. Hypernatremia 10. Anemia PLAN: 1. Recommend free-water liberalization or management of the above-noted hypernatremia 2. Recommend avoidance of AV micha blocking agents 3. Recommend initiation of Norvasc therapy 4. Antibiotics as per the primary team 5. Patient may be transferred to floor care from the cardiovascular point of view and no additional intervention is indicated Joy Freed M.D.
--- NOTE | 2017-06-19 11:37 | PN ---
Progress Note, [employer] - Note Progress Note: Selected Entries 06/18/17 06/18/17 06/18/17 02:00 06:00 10:00 Breakfast Lunch Supper Temperature 97.9 F 97.1 F L 97.5 F L 06/18/17 06/18/17 06/18/17 10:33 10:51 13:46 Breakfast 50% Lunch Supper Temperature 97.8 F 97.8 F 06/18/17 06/18/17 06/18/17 15:46 19:31 22:00 Breakfast Lunch 75% Supper Temperature 97.5 F L 97.6 F 97.1 F L 06/18/17 06/19/17 06/19/17 23:30 02:00 06:00 Breakfast Lunch Supper 50% Temperature 97.8 F 97.6 F 06/19/17 06/19/17 06/19/17 08:30 09:02 09:34 Breakfast 25% Lunch Supper Temperature 97.5 F L 98.2 F Laboratory Tests 06/18/17 06/19/17 05:18 05:10 WBC 7.7 7.6 Pt on pureed diet.nectar thick liquids. Nursing feels pt is not sufficiently alert for MBS today. He needs frequent re-arousal mealtime while being fed.
[2017-06-19] MEDS: amLODIPine BESYLATE 2.5 MG TABLET (FP) PO SCH (11:50)
--- NOTE | 2017-06-19 14:07 | PN ---
Progress Note, Physician History of Present Illness: patient is awake,but has dementia still does not look well - Current Medication List Current Medications: Active Medications Acetaminophen (Tylenol -) 650 mg PO Q4H PRN PRN Reason: FEVER OR PAIN Albuterol/Ipratropium (Duoneb -) 1 amp NEB Q6H PRN PRN Reason: SHORTNESS OF BREATH Last Admin: 06/18/17 11:50 Dose: 1 amp Amlodipine Besylate (Norvasc -) 2.5 mg PO DAILY [facility] Last Admin: 06/19/17 11:50 Dose: 2.5 mg Ascorbic Acid (Vitamin C -) 500 mg PO BID [facility] Last Admin: 06/19/17 09:37 Dose: 500 mg Emollient Ointment (Lanolin Topical Ointment -) 1 applic TP BID [facility] Last Admin: 06/19/17 10:23 Dose: Not Given Escitalopram Oxalate (Lexapro -) 20 mg PO DAILY [facility] Last Admin: 06/19/17 09:36 Dose: 20 mg Ferrous Sulfate (Feosol -) 325 mg PO BID [facility] Last Admin: 06/19/17 09:36 Dose: 325 mg Heparin Sodium (Porcine) (Heparin -) 5,000 unit SQ BID [facility] Last Admin: 06/19/17 09:37 Dose: 5,000 unit Multivitamins/Minerals/Vitamin C (Tab-A-Vit -) 1 tab PO DAILY [facility] Last Admin: 06/19/17 09:36 Dose: 1 tab Nystatin (Nystop Powder -) 1 applic TP BID [facility] Last Admin: 06/19/17 09:37 Dose: 1 applic Olanzapine 2.5 mg/ Olanzapine (5 mg) 7.5 mg PO DAILY [facility] Last Admin: 06/19/17 09:36 Dose: 7.5 mg [id number]-6-[id number] Ethyl Esters (Lovaza -) 1 gm PO DAILY [facility] Last Admin: 06/19/17 09:36 Dose: 1 gm Ranitidine HCl (Zantac -) 150 mg PO BID [facility] Last Admin: 06/19/17 09:36 Dose: 150 mg Tamsulosin HCl (Flomax -) 0.4 mg PO DAILY [facility] Last Admin: 06/19/17 09:36 Dose: 0.4 mg Triamcinolone Acetonide (Aristocort 0.1% Lotion -) 1 applic TP BID [facility] Last Admin: 06/19/17 09:36 Dose: 1 applic - Objective Vital Signs: Vital Signs Temperature 96.1 F L 06/19/17 11:45 Pulse Rate 82 06/19/17 09:02 Respiratory Rate 16 06/19/17 11:45 Blood Pressure 133/68 06/19/17 11:45 O2 Sat by Pulse Oximetry (%) 98 06/19/17 09:10 Constitutional: Yes: No Distress, Calm Neck: Yes: Supple Cardiovascular: Yes: Regular Rate and Rhythm Respiratory: Yes: Regular, CTA Bilaterally Gastrointestinal: Yes: Normal Bowel Sounds, Soft Musculoskeletal: Yes: Other Extremities: Yes: Other Neurological: Yes: Alert, Other Psychiatric: Yes: Other Labs: CBC, BMP 06/19/17 05:10 06/19/17 05:10 INR, PTT INR 1.01 (0.82-1.09) 06/14/17 11:00 Assessment/Plan Problem List - Problems (1) Sepsis Code(s): A41.9 - SEPSIS, UNSPECIFIED ORGANISM Qualifiers: Sepsis type: sepsis due to unspecified organism Qualified Code(s): A41.9 - Sepsis, unspecified organism; A41.9 - Sepsis, unspecified organism; A41.9 - Sepsis, unspecified organism (2) Metabolic encephalopathy Code(s): G93.41 - METABOLIC ENCEPHALOPATHY (3) Bradycardia Code(s): R00.1 - BRADYCARDIA, UNSPECIFIED (4) UTI (urinary tract infection) Code(s): N39.0 - URINARY TRACT INFECTION, SITE NOT SPECIFIED Qualifiers: Urinary tract infection type: site unspecified Hematuria presence: without hematuria Qualified Code(s): N39.0 - Urinary tract infection, site not specified; N39.0 - Urinary tract infection, site not specified; R31.9 - Hematuria, unspecified; R31.9 - Hematuria, unspecified (5) Acute on chronic renal failure Code(s): N17.9 - ACUTE KIDNEY FAILURE, UNSPECIFIED N18.9 - CHRONIC KIDNEY DISEASE, UNSPECIFIED (6) Hyperkalemia Code(s): E87.5 - HYPERKALEMIA (7) Anemia Code(s): D64.9 - ANEMIA, UNSPECIFIED Qualifiers: 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 Code(s): D50.0 - Iron deficiency anemia secondary to blood loss (chronic); D50.0 - Iron deficiency anemia secondary to blood loss (chronic) (8) CAD (coronary artery disease) Code(s): I25.10 - ATHSCL HEART DISEASE OF [place] CORONARY ARTERY W/O ANG PCTRS (9) CHF (congestive heart failure) Code(s): I50.9 - HEART FAILURE, UNSPECIFIED Qualifiers: Congestive heart failure type: diastolic Congestive heart failure chronicity: chronic Qualified Code(s): I50.32 - Chronic diastolic ( congestive) heart failure; I50.32 - Chronic diastolic (congestive) heart failure ; I50.32 - Chronic diastolic (congestive) heart failure; I50.32 - Chronic diastolic (congestive) heart failure (10) Dementia Code(s): F03.90 - UNSPECIFIED DEMENTIA WITHOUT BEHAVIORAL DISTURBANCE (11) HTN (hypertension) Code(s): I10 - ESSENTIAL (PRIMARY) HYPERTENSION patient received vanco and zosyn plan continue to monitor without abx patient still not stable nutrition rest as per primary team/cardio
--- NOTE | 2017-06-19 16:20 | PN ---
Progress Note (short form) - Note Progress Note: Renal follow up for SUZI on CKD Pt seen and examined a the bedside pt very lethargic today transfered to Med/Surg floor from tele Vital Signs Temperature 97.2 F L 06/19/17 14:00 Pulse Rate 83 06/19/17 14:00 Respiratory Rate 18 06/19/17 14:00 Blood Pressure 158/87 06/19/17 14:00 O2 Sat by Pulse Oximetry (%) 95 06/19/17 10:30 Intake & Output 06/17/17 06/17/17 06/18/17 06/19/17 00:59 23:59 23:59 23:59 Intake Total 480 170 Output Total 1450 1100 Balance -970 -930 NAD awake and alert bradycardic + congestion on lung costello soft NT/ND No LE edmea CBC, BMP 06/19/17 05:10 06/19/17 05:10 Current Medications Acetaminophen (Tylenol -) 650 mg PO Q4H PRN PRN Reason: FEVER OR PAIN Albuterol/Ipratropium (Duoneb -) 1 amp NEB Q6H PRN PRN Reason: SHORTNESS OF BREATH Last Admin: 06/19/17 10:30 Dose: 1 amp Amlodipine Besylate (Norvasc -) 2.5 mg PO DAILY [facility] Last Admin: 06/19/17 11:50 Dose: 2.5 mg Ascorbic Acid (Vitamin C -) 500 mg PO BID [facility] Last Admin: 06/19/17 09:37 Dose: 500 mg Emollient Ointment (Lanolin Topical Ointment -) 1 applic TP BID [facility] Last Admin: 06/19/17 10:23 Dose: Not Given Escitalopram Oxalate (Lexapro -) 20 mg PO DAILY [facility] Last Admin: 06/19/17 09:36 Dose: 20 mg Ferrous Sulfate (Feosol -) 325 mg PO BID [facility] Last Admin: 06/19/17 09:36 Dose: 325 mg Heparin Sodium (Porcine) (Heparin -) 5,000 unit SQ BID [facility] Last Admin: 06/19/17 09:37 Dose: 5,000 unit Multivitamins/Minerals/Vitamin C (Tab-A-Vit -) 1 tab PO DAILY [facility] Last Admin: 06/19/17 09:36 Dose: 1 tab Nystatin (Nystop Powder -) 1 applic TP BID [facility] Last Admin: 06/19/17 09:37 Dose: 1 applic Olanzapine 2.5 mg/ Olanzapine (5 mg) 7.5 mg PO DAILY [facility] Last Admin: 06/19/17 09:36 Dose: 7.5 mg Iwnpl-2-Pohc Ethyl Esters (Lovaza -) 1 gm PO DAILY [facility] Last Admin: 06/19/17 09:36 Dose: 1 gm Ranitidine HCl (Zantac -) 150 mg PO BID [facility] Last Admin: 06/19/17 09:36 Dose: 150 mg Tamsulosin HCl (Flomax -) 0.4 mg PO DAILY [facility] Last Admin: 06/19/17 09:36 Dose: 0.4 mg Triamcinolone Acetonide (Aristocort 0.1% Lotion -) 1 applic TP BID [facility] Last Admin: 06/19/17 09:36 Dose: 1 applic 86 year old gentleman with PMhx of CHF with preserved LVF, CKD Stage 4 ( baseline Cr ~2.5), BPH who presented from [place] with SOB and admitted for suspected sepsis with SUZI with Cr of 3.8. #Acute on Chronic renal insufficiency with hyperkalemia and mild volume expansion Renal function w/o improvement thus far pt is non-oliguric with > 1L output so far today hold lasix and IVF today trend BUN/Cr and clinical status repeat CXR in the AM #Sepsis syndrome continue Emperic Abx f/u cultures reports Supportive care prognosis guarded DNR/DNI Teja Mercedes DO
--- NOTE | 2017-06-19 16:44 | PN ---
Progress Note, Physician Chief Complaint: Unable to obtain - Current Medication List Current Medications: Active Medications Acetaminophen (Tylenol -) 650 mg PO Q4H PRN PRN Reason: FEVER OR PAIN Albuterol/Ipratropium (Duoneb -) 1 amp NEB Q6H PRN PRN Reason: SHORTNESS OF BREATH Last Admin: 06/19/17 10:30 Dose: 1 amp Amlodipine Besylate (Norvasc -) 2.5 mg PO DAILY [facility] Last Admin: 06/19/17 11:50 Dose: 2.5 mg Ascorbic Acid (Vitamin C -) 500 mg PO BID [facility] Last Admin: 06/19/17 09:37 Dose: 500 mg Emollient Ointment (Lanolin Topical Ointment -) 1 applic TP BID [facility] Last Admin: 06/19/17 10:23 Dose: Not Given Escitalopram Oxalate (Lexapro -) 20 mg PO DAILY [facility] Last Admin: 06/19/17 09:36 Dose: 20 mg Ferrous Sulfate (Feosol -) 325 mg PO BID [facility] Last Admin: 06/19/17 09:36 Dose: 325 mg Heparin Sodium (Porcine) (Heparin -) 5,000 unit SQ BID [facility] Last Admin: 06/19/17 09:37 Dose: 5,000 unit Multivitamins/Minerals/Vitamin C (Tab-A-Vit -) 1 tab PO DAILY [facility] Last Admin: 06/19/17 09:36 Dose: 1 tab Nystatin (Nystop Powder -) 1 applic TP BID [facility] Last Admin: 06/19/17 09:37 Dose: 1 applic Olanzapine 2.5 mg/ Olanzapine (5 mg) 7.5 mg PO DAILY [facility] Last Admin: 06/19/17 09:36 Dose: 7.5 mg Oohtn-1-Dcwt Ethyl Esters (Lovaza -) 1 gm PO DAILY [facility] Last Admin: 06/19/17 09:36 Dose: 1 gm Ranitidine HCl (Zantac -) 150 mg PO BID [facility] Last Admin: 06/19/17 09:36 Dose: 150 mg Tamsulosin HCl (Flomax -) 0.4 mg PO DAILY [facility] Last Admin: 06/19/17 09:36 Dose: 0.4 mg Triamcinolone Acetonide (Aristocort 0.1% Lotion -) 1 applic TP BID [facility] Last Admin: 06/19/17 09:36 Dose: 1 applic - Objective Vital Signs: Vital Signs Temperature 36.2 C L 06/19/17 14:00 Pulse Rate 83 06/19/17 14:00 Respiratory Rate 18 06/19/17 14:00 Blood Pressure 158/87 06/19/17 14:00 O2 Sat by Pulse Oximetry (%) 95 06/19/17 10:30 Constitutional: Yes: No Distress, Calm, Other (lethargic) Cardiovascular: Yes: Regular Rate and Rhythm, Murmur. No: Gallop, Rub Respiratory: Yes: Regular, CTA Bilaterally. No: Rales, Rhonchi, Wheezes Gastrointestinal: Yes: Normal Bowel Sounds, Soft. No: Distention, Tenderness Extremities: Yes: WNL Edema: No Labs: CBC, BMP 06/19/17 05:10 06/19/17 05:10 INR, PTT INR 1.01 (0.82-1.09) 06/14/17 11:00 Problem List - Problems (1) Sepsis Code(s): A41.9 - SEPSIS, UNSPECIFIED ORGANISM Qualifiers: Sepsis type: sepsis due to unspecified organism Qualified Code(s): A41.9 - Sepsis, unspecified organism; A41.9 - Sepsis, unspecified organism; A41.9 - Sepsis, unspecified organism (2) Metabolic encephalopathy Code(s): G93.41 - METABOLIC ENCEPHALOPATHY (3) Bradycardia Code(s): R00.1 - BRADYCARDIA, UNSPECIFIED (4) UTI (urinary tract infection) Code(s): N39.0 - URINARY TRACT INFECTION, SITE NOT SPECIFIED Qualifiers: Urinary tract infection type: site unspecified Hematuria presence: without hematuria Qualified Code(s): N39.0 - Urinary tract infection, site not specified; N39.0 - Urinary tract infection, site not specified; R31.9 - Hematuria, unspecified; R31.9 - Hematuria, unspecified (5) Acute on chronic renal failure Code(s): N17.9 - ACUTE KIDNEY FAILURE, UNSPECIFIED N18.9 - CHRONIC KIDNEY DISEASE, UNSPECIFIED (6) Hyperkalemia Code(s): E87.5 - HYPERKALEMIA (7) Anemia Code(s): D64.9 - ANEMIA, UNSPECIFIED Qualifiers: 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 Code(s): D50.0 - Iron deficiency anemia secondary to blood loss (chronic); D50.0 - Iron deficiency anemia secondary to blood loss (chronic) (8) CAD (coronary artery disease) Code(s): I25.10 - ATHSCL HEART DISEASE OF [place] CORONARY ARTERY W/O ANG PCTRS (9) CHF (congestive heart failure) Code(s): I50.9 - HEART FAILURE, UNSPECIFIED Qualifiers: Congestive heart failure type: diastolic Congestive heart failure chronicity: chronic Qualified Code(s): I50.32 - Chronic diastolic ( congestive) heart failure; I50.32 - Chronic diastolic (congestive) heart failure ; I50.32 - Chronic diastolic (congestive) heart failure; I50.32 - Chronic diastolic (congestive) heart failure (10) Dementia Code(s): F03.90 - UNSPECIFIED DEMENTIA WITHOUT BEHAVIORAL DISTURBANCE (11) HTN (hypertension) Code(s): I10 - ESSENTIAL (PRIMARY) HYPERTENSION Assessment/Plan (1) Sepsis Assessment/Plan: -appreciate ID assistance -cultures NGTD -zosyn discontinued per ID Code(s): A41.9 - SEPSIS, UNSPECIFIED ORGANISM Qualifiers: Sepsis type: sepsis due to unspecified organism Qualified Code(s): A41.9 - Sepsis, unspecified organism; A41.9 - Sepsis, unspecified organism; A41.9 - Sepsis, unspecified organism (2) Metabolic encephalopathy Assessment/Plan: -unchanged -continue treating underlying condition -however suspect exacerbated by hypoperfusion from sick sinus syndrome with symptomatic bradycardia Code(s): G93.41 - METABOLIC ENCEPHALOPATHY (3) Bradycardia/sick sinus rhythm Assessment/Plan: -appreciate cardiology assistance -no further treatment for this needed -off all medications that affect heart rate Code(s): R00.1 - BRADYCARDIA, UNSPECIFIED (4) UTI (urinary tract infection) Assessment/Plan: -urine culture NGTD Code(s): N39.0 - URINARY TRACT INFECTION, SITE NOT SPECIFIED Qualifiers: Urinary tract infection type: site unspecified Hematuria presence: without hematuria Qualified Code(s): N39.0 - Urinary tract infection, site not specified; N39.0 - Urinary tract infection, site not specified; R31.9 - Hematuria, unspecified; R31.9 - Hematuria, unspecified (5) Acute on chronic renal failure Assessment/Plan: -nephrology note reviewed -holding lasix and IVF Code(s): N17.9 - ACUTE KIDNEY FAILURE, UNSPECIFIED N18.9 - CHRONIC KIDNEY DISEASE, UNSPECIFIED (6) Hyperkalemia Assessment/Plan: -resolved Code(s): E87.5 - HYPERKALEMIA (7) Anemia Assessment/Plan: -above baseline -continue iron Code(s): D64.9 - ANEMIA, UNSPECIFIED Qualifiers: 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 Code(s): D50.0 - Iron deficiency anemia secondary to blood loss (chronic); D50.0 - Iron deficiency anemia secondary to blood loss (chronic) (8) CAD (coronary artery disease) Assessment/Plan: -with sick sinus syndrome Code(s): I25.10 - ATHSCL HEART DISEASE OF [place] CORONARY ARTERY W/O ANG PCTRS (9) CHF (congestive heart failure) Assessment/Plan: -effusions noted on chest x-ray -holding lasix today Code(s): I50.9 - HEART FAILURE, UNSPECIFIED Qualifiers: Congestive heart failure type: diastolic Congestive heart failure chronicity: chronic Qualified Code(s): I50.32 - Chronic diastolic ( congestive) heart failure; I50.32 - Chronic diastolic (congestive) heart failure ; I50.32 - Chronic diastolic (congestive) heart failure; I50.32 - Chronic diastolic (congestive) heart failure (10) Dementia Assessment/Plan: -exacerbated by sepsis -continue olanzapine -holding perphenazine Code(s): F03.90 - UNSPECIFIED DEMENTIA WITHOUT BEHAVIORAL DISTURBANCE (11) HTN (hypertension) Assessment/Plan: -monitor Code(s): I10 - ESSENTIAL (PRIMARY) HYPERTENSION
[2017-06-20 08:32] LABS: BASOPHIL 0.2 % (0-2.0); EOSINOPHIL 2.3 % (0-4.5); MCH 29.5 pg (25.7-33.7); MCHC 32.9 g/dl (32.0-35.9); MEAN CELL VOLUME 89.7 fl (80-96); MEAN PLT VOLUME 8.5 fl (7.5-11.1); NEUTROPHILS 85.6 % (42.8-82.8); PLATELET COUNT 212 K/MM3 (134-434); RDW 16.8 % (11.9-15.9); WHITE BLOOD COUNT 8.1 K/mm3 (4.0-10.0)
[2017-06-20 09:28] LABS: ANION GAP 11 (8-16); CO2 22 mmol/L (21-32); CREATININE 4.2 mg/dL (0.7-1.3); GLUCOSE,RANDOM 94 mg/dL (74-106); MAGNESIUM 2.1 mg/dL (1.8-2.4); PHOSPHOROUS 5.9 mg/dL (2.5-4.9)
[2017-06-20] MEDS ORDERED: ESCITALOPRAM OXALATE 10 MG TABLET (FP) ONE (11:33)
[2017-06-20] MEDS: ESCITALOPRAM OXALATE 20 MG TABLET (FP) PO SCH (11:52)
[2017-06-20] MEDS: OLANZAPINE 2.5 MG, OLANZAPINE 5 MG PO SCH (11:52)
[2017-06-20] MEDS: MULTIVITAMINS (DAILY MVI) TABLET (FP) PO SCH (11:53)
[2017-06-20] MEDS: RANITIDINE HCL 150 MG TABLET (FP) PO SCH ×2 (11:53→21:38)
[2017-06-20] MEDS: FERROUS SO4 325 MG TABLET (FP) PO SCH ×2 (11:53→21:38)
[2017-06-20] MEDS: OMEGA-3 ACID ETHYL ESTERS (FATTY-ACIDS) 1 GM CAPSULE (FP) PO SCH (11:54)
[2017-06-20] MEDS: TAMSULOSIN HCL 0.4 MG CAP.ER.24H (FP) PO SCH (11:54)
[2017-06-20] MEDS: ASCORBIC ACID 500 MG TABLET (FP) PO SCH ×2 (11:54→21:39)
[2017-06-20] MEDS: amLODIPine BESYLATE 2.5 MG TABLET (FP) PO SCH (11:54)
[2017-06-20] MEDS: HEPARIN NA (PORCINE) 5,000 UNITS/ML 1ML VIAL SQ SCH ×2 (11:55→21:40)
[2017-06-20] MEDS: NYSTATIN POWDER 100,000 UNITS/GM - 15 GM TOPICAL POWDER TP SCH ×2 (11:56→21:40)
--- NOTE | 2017-06-20 12:15 | PN ---
Progress Note, Physician History of Present Illness: Patient is at baseline mental status, eating lunch in wheelchair, weak cough. - Current Medication List Current Medications: Active Medications Acetaminophen (Tylenol -) 650 mg PO Q4H PRN PRN Reason: FEVER OR PAIN Albuterol/Ipratropium (Duoneb -) 1 amp NEB Q6H PRN PRN Reason: SHORTNESS OF BREATH Last Admin: 06/19/17 10:30 Dose: 1 amp Amlodipine Besylate (Norvasc -) 2.5 mg PO DAILY [facility] Last Admin: 06/20/17 11:54 Dose: 2.5 mg Ascorbic Acid (Vitamin C -) 500 mg PO BID [facility] Last Admin: 06/20/17 11:54 Dose: 500 mg Emollient Ointment (Lanolin Topical Ointment -) 1 applic TP BID [facility] Last Admin: 06/19/17 22:00 Dose: 1 applic Escitalopram Oxalate (Lexapro -) 20 mg PO DAILY [facility] Last Admin: 06/20/17 11:52 Dose: 20 mg Ferrous Sulfate (Feosol -) 325 mg PO BID [facility] Last Admin: 06/20/17 11:53 Dose: 325 mg Heparin Sodium (Porcine) (Heparin -) 5,000 unit SQ BID [facility] Last Admin: 06/20/17 11:55 Dose: 5,000 unit Multivitamins/Minerals/Vitamin C (Tab-A-Vit -) 1 tab PO DAILY [facility] Last Admin: 06/20/17 11:53 Dose: 1 tab Nystatin (Nystop Powder -) 1 applic TP BID [facility] Last Admin: 06/20/17 11:56 Dose: 1 applic Olanzapine 2.5 mg/ Olanzapine (5 mg) 7.5 mg PO DAILY [facility] Last Admin: 06/20/17 11:52 Dose: 7.5 mg Kyyyj-9-Guwp Ethyl Esters (Lovaza -) 1 gm PO DAILY [facility] Last Admin: 06/20/17 11:54 Dose: 1 gm Ranitidine HCl (Zantac -) 150 mg PO BID [facility] Last Admin: 06/20/17 11:53 Dose: 150 mg Tamsulosin HCl (Flomax -) 0.4 mg PO DAILY [facility] Last Admin: 06/20/17 11:54 Dose: 0.4 mg Triamcinolone Acetonide (Aristocort 0.1% Lotion -) 1 applic TP BID [facility] Last Admin: 06/19/17 22:28 Dose: 1 applic - Objective Vital Signs: Vital Signs Temperature 97.7 F 06/20/17 02:00 Pulse Rate 93 H 06/20/17 11:12 Respiratory Rate 20 06/20/17 02:00 Blood Pressure 154/84 06/20/17 02:00 O2 Sat by Pulse Oximetry (%) 95 06/20/17 11:12 Constitutional: Yes: No Distress, Calm Neck: Yes: Supple Cardiovascular: Yes: Pulse Irregular, Murmur (2/6 SM) Respiratory: Yes: Regular, Diminished Gastrointestinal: Yes: Normal Bowel Sounds, Soft Edema: No Labs: CBC, BMP 06/20/17 06:20 06/20/17 06:20 INR, PTT INR 1.01 (0.82-1.09) 06/14/17 11:00 - ....Imaging Chest X-ray: Report Reviewed (Congestion) Problem List - Problems (1) Metabolic encephalopathy Code(s): G93.41 - METABOLIC ENCEPHALOPATHY (2) CAD (coronary artery disease) Code(s): I25.10 - ATHSCL HEART DISEASE OF [place] CORONARY ARTERY W/O ANG PCTRS Qualifiers: Coronary Disease-Associated Artery/Lesion type: [place] artery Associated angina: without angina (3) CHF (congestive heart failure) Code(s): I50.9 - HEART FAILURE, UNSPECIFIED Qualifiers: Congestive heart failure type: diastolic Congestive heart failure chronicity: chronic Qualified Code(s): I50.32 - Chronic diastolic (congestive ) heart failure (4) Dementia Code(s): F03.90 - UNSPECIFIED DEMENTIA WITHOUT BEHAVIORAL DISTURBANCE Qualifiers: Dementia type: Alzheimer's disease (5) HTN (hypertension) Code(s): I10 - ESSENTIAL (PRIMARY) HYPERTENSION Qualifiers: Hypertension type: essential hypertension Qualified Code(s): I10 - Essential (primary) hypertension (6) Sepsis Code(s): A41.9 - SEPSIS, UNSPECIFIED ORGANISM Qualifiers: Sepsis type: sepsis due to unspecified organism Qualified Code(s): A41.9 - Sepsis, unspecified organism (7) UTI (urinary tract infection) Code(s): N39.0 - URINARY TRACT INFECTION, SITE NOT SPECIFIED Qualifiers: Urinary tract infection type: site unspecified Hematuria presence: without hematuria Qualified Code(s): N39.0 - Urinary tract infection, site not specified (8) Atrial fibrillation with slow ventricular response Code(s): I48.91 - UNSPECIFIED ATRIAL FIBRILLATION (9) Diastolic dysfunction Code(s): I51.9 - HEART DISEASE, UNSPECIFIED (10) Moderate aortic stenosis Code(s): I35.0 - NONRHEUMATIC AORTIC (VALVE) STENOSIS (11) Hypernatremia Code(s): E87.0 - HYPEROSMOLALITY AND HYPERNATREMIA (12) Chronic kidney disease (CKD) Code(s): N18.9 - CHRONIC KIDNEY DISEASE, UNSPECIFIED Qualifiers: Chronic kidney disease stage: stage 4 (severe) Qualified Code(s): N18.4 - Chronic kidney disease, stage 4 (severe) Assessment/Plan 05/07/2017 Echo: Normal LV size and fxn, mod , mild TR 1. Sepsis source with toxic metabolic encephalopathy 2. Atrial fibrillation with slow ventricular response most likely related to AV micha disease 3. Coronary artery disease angina pectoris 4. Diastolic dysfunction with chronic class I [place] [employer] classification left ventricular failure, compensated/euvolemic 5. Aortic stenosis moderate in severity 6. HTN/HCVD 7. Dementia, organic brain syndrome 8. CKD 9. Hypernatremia 10. Anemia PLAN: 1. Free water repletion for treatment of hypernatremia 2. Recommend avoidance of AV micha blocking agents 3. Continue Norvasc 2.5 qd and Lovaza 1 qd 4. Completed antibiotics course as per the primary team 5. No indications for PPM given stable telemetry findings compared with previous admissions and ongoing treatment for suspected sepsis 6. Patient was transferred to floor care from the cardiovascular point of view and no additional intervention is indicated 7. DVT and GI prophylaxis, d/c planning
--- NOTE | 2017-06-20 12:28 | PN ---
Progress Note, Physician Chief Complaint: Unable to obtain, patient sitting up eating - Current Medication List Current Medications: Active Medications Acetaminophen (Tylenol -) 650 mg PO Q4H PRN PRN Reason: FEVER OR PAIN Albuterol/Ipratropium (Duoneb -) 1 amp NEB Q6H PRN PRN Reason: SHORTNESS OF BREATH Last Admin: 06/19/17 10:30 Dose: 1 amp Amlodipine Besylate (Norvasc -) 2.5 mg PO DAILY [facility] Last Admin: 06/20/17 11:54 Dose: 2.5 mg Ascorbic Acid (Vitamin C -) 500 mg PO BID [facility] Last Admin: 06/20/17 11:54 Dose: 500 mg Emollient Ointment (Lanolin Topical Ointment -) 1 applic TP BID [facility] Last Admin: 06/19/17 22:00 Dose: 1 applic Escitalopram Oxalate (Lexapro -) 20 mg PO DAILY [facility] Last Admin: 06/20/17 11:52 Dose: 20 mg Ferrous Sulfate (Feosol -) 325 mg PO BID [facility] Last Admin: 06/20/17 11:53 Dose: 325 mg Heparin Sodium (Porcine) (Heparin -) 5,000 unit SQ BID [facility] Last Admin: 06/20/17 11:55 Dose: 5,000 unit Multivitamins/Minerals/Vitamin C (Tab-A-Vit -) 1 tab PO DAILY [facility] Last Admin: 06/20/17 11:53 Dose: 1 tab Nystatin (Nystop Powder -) 1 applic TP BID [facility] Last Admin: 06/20/17 11:56 Dose: 1 applic Olanzapine 2.5 mg/ Olanzapine (5 mg) 7.5 mg PO DAILY [facility] Last Admin: 06/20/17 11:52 Dose: 7.5 mg Hqhhb-7-Rxit Ethyl Esters (Lovaza -) 1 gm PO DAILY [facility] Last Admin: 06/20/17 11:54 Dose: 1 gm Ranitidine HCl (Zantac -) 150 mg PO BID [facility] Last Admin: 06/20/17 11:53 Dose: 150 mg Tamsulosin HCl (Flomax -) 0.4 mg PO DAILY [facility] Last Admin: 06/20/17 11:54 Dose: 0.4 mg Triamcinolone Acetonide (Aristocort 0.1% Lotion -) 1 applic TP BID [facility] Last Admin: 06/19/17 22:28 Dose: 1 applic - Objective Vital Signs: Vital Signs Temperature 36.5 C 06/20/17 02:00 Pulse Rate 93 H 06/20/17 11:12 Respiratory Rate 20 06/20/17 02:00 Blood Pressure 154/84 06/20/17 02:00 O2 Sat by Pulse Oximetry (%) 95 06/20/17 11:12 Constitutional: Yes: Well Nourished, No Distress, Calm Cardiovascular: Yes: Regular Rate and Rhythm. No: Gallop, Murmur, Rub Respiratory: Yes: Regular, Rhonchi. No: CTA Bilaterally, Rales, Tachypnea, Wheezes Gastrointestinal: Yes: Normal Bowel Sounds, Soft. No: Distention, Tenderness Extremities: Yes: Erythema (chronic) Edema: No Labs: CBC, BMP 06/20/17 06:20 06/20/17 06:20 INR, PTT INR 1.01 (0.82-1.09) 06/14/17 11:00 Problem List - Problems (1) Acute on chronic renal failure Code(s): N17.9 - ACUTE KIDNEY FAILURE, UNSPECIFIED; N18.9 - CHRONIC KIDNEY DISEASE, UNSPECIFIED (2) Anemia Code(s): D64.9 - ANEMIA, UNSPECIFIED Qualifiers: 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 Code(s): D50.0 - Iron deficiency anemia secondary to blood loss (chronic) (3) HTN (hypertension) Code(s): I10 - ESSENTIAL (PRIMARY) HYPERTENSION Qualifiers: Hypertension type: essential hypertension Qualified Code(s): I10 - Essential (primary) hypertension (4) Bradycardia Code(s): R00.1 - BRADYCARDIA, UNSPECIFIED (5) Dementia Code(s): F03.90 - UNSPECIFIED DEMENTIA WITHOUT BEHAVIORAL DISTURBANCE Qualifiers: Dementia type: Alzheimer's disease (6) CHF (congestive heart failure) Code(s): I50.9 - HEART FAILURE, UNSPECIFIED Qualifiers: Congestive heart failure type: diastolic Congestive heart failure chronicity: chronic Qualified Code(s): I50.32 - Chronic diastolic (congestive ) heart failure (7) CAD (coronary artery disease) Code(s): I25.10 - ATHSCL HEART DISEASE OF [place] CORONARY ARTERY W/O ANG PCTRS Qualifiers: Coronary Disease-Associated Artery/Lesion type: [place] artery Associated angina: without angina (8) Hyperkalemia Code(s): E87.5 - HYPERKALEMIA (9) UTI (urinary tract infection) Code(s): N39.0 - URINARY TRACT INFECTION, SITE NOT SPECIFIED Qualifiers: Urinary tract infection type: site unspecified Hematuria presence: without hematuria Qualified Code(s): N39.0 - Urinary tract infection, site not specified (10) Sepsis Code(s): A41.9 - SEPSIS, UNSPECIFIED ORGANISM Qualifiers: Sepsis type: sepsis due to unspecified organism Qualified Code(s): A41.9 - Sepsis, unspecified organism (11) Metabolic encephalopathy Code(s): G93.41 - METABOLIC ENCEPHALOPATHY Assessment/Plan (1) Sepsis Assessment/Plan: -resolved Code(s): A41.9 - SEPSIS, UNSPECIFIED ORGANISM Qualifiers: Sepsis type: sepsis due to unspecified organism Qualified Code(s): A41.9 - Sepsis, unspecified organism; A41.9 - Sepsis, unspecified organism; A41.9 - Sepsis, unspecified organism (2) Metabolic encephalopathy Assessment/Plan: -patient back to baseline -secondary to sick sinus syndrome with severe bradycardia Code(s): G93.41 - METABOLIC ENCEPHALOPATHY (3) Bradycardia/sick sinus rhythm Assessment/Plan: -appreciate cardiology assistance -no further treatment for this needed -off all medications that affect heart rate Code(s): R00.1 - BRADYCARDIA, UNSPECIFIED (4) UTI (urinary tract infection) Assessment/Plan: -urine culture NGTD Code(s): N39.0 - URINARY TRACT INFECTION, SITE NOT SPECIFIED Qualifiers: Urinary tract infection type: site unspecified Hematuria presence: without hematuria Qualified Code(s): N39.0 - Urinary tract infection, site not specified; N39.0 - Urinary tract infection, site not specified; R31.9 - Hematuria, unspecified; R31.9 - Hematuria, unspecified (5) Acute on chronic renal failure Assessment/Plan: -case d/w nephrology -holding lasix and IVF -patient diuresing well, expect improvement Code(s): N17.9 - ACUTE KIDNEY FAILURE, UNSPECIFIED N18.9 - CHRONIC KIDNEY DISEASE, UNSPECIFIED (6) Hyperkalemia Assessment/Plan: -resolved Code(s): E87.5 - HYPERKALEMIA (7) Anemia Assessment/Plan: -above baseline -continue iron Code(s): D64.9 - ANEMIA, UNSPECIFIED Qualifiers: 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 Code(s): D50.0 - Iron deficiency anemia secondary to blood loss (chronic); D50.0 - Iron deficiency anemia secondary to blood loss (chronic) (8) CAD (coronary artery disease) Assessment/Plan: -with sick sinus syndrome Code(s): I25.10 - ATHSCL HEART DISEASE OF [place] CORONARY ARTERY W/O ANG PCTRS (9) CHF (congestive heart failure) Assessment/Plan: -effusions noted on chest x-ray -holding lasix today -patient diuresing naturally Code(s): I50.9 - HEART FAILURE, UNSPECIFIED Qualifiers: Congestive heart failure type: diastolic Congestive heart failure chronicity: chronic Qualified Code(s): I50.32 - Chronic diastolic ( congestive) heart failure; I50.32 - Chronic diastolic (congestive) heart failure ; I50.32 - Chronic diastolic (congestive) heart failure; I50.32 - Chronic diastolic (congestive) heart failure (10) Dementia Assessment/Plan: -exacerbated by sepsis -continue olanzapine -holding perphenazine, do not restart perphenazine secondary to it causing bradycardia and arrhythmias Code(s): F03.90 - UNSPECIFIED DEMENTIA WITHOUT BEHAVIORAL DISTURBANCE (11) HTN (hypertension) Assessment/Plan: -monitor Code(s): I10 - ESSENTIAL (PRIMARY) HYPERTENSION (12) Possible aspiration -speech therapy following -npo -modified barium swallow
[2017-06-20] MEDS: ALBUTEROL SO4 2.5/IPRATROPIUM 0.5 INH SOL 3 ML VIAL.NEB. NEB PRN (14:24)
--- NOTE | 2017-06-20 14:34 | PN ---
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 Pt seen OOB, coughing noted following lunch.Suggested MBS be done and received orders. Pt was unable to be sent done, per nursing, due to respiratory condition and need for treatment. Selected Entries 06/19/17 06/19/17 06/19/17 02:00 06:00 08:30 Breakfast Skin Risk Level Temperature 97.8 F 97.6 F 97.5 F L 06/19/17 06/19/17 06/19/17 09:02 09:34 11:45 Breakfast 25% Skin Risk Level Temperature 98.2 F 96.1 F L 06/19/17 06/19/17 06/19/17 14:00 18:00 22:00 Breakfast Skin Risk Level Very High Risk Temperature 97.2 F L 97.1 F L 97 F L 06/20/17 02:00 Breakfast Skin Risk Level Temperature 97.7 F Laboratory Tests 06/19/17 06/20/17 05:10 06:20 WBC 7.6 8.1 Consider holding PO until pulmonary status improves, if aspiration is suspected , and perform MBS as soon as medically stable.
--- NOTE | 2017-06-20 17:49 | PN ---
Progress Note (short form) - Note Progress Note: Renal follow up for SUZI on CKD Pt seen and examined in the hallway awake and alert no acute complaints no chest pain, sob making urine via harris Vital Signs Temperature 97.7 F 06/20/17 02:00 Pulse Rate 77 06/20/17 15:06 Respiratory Rate 20 06/20/17 15:06 Blood Pressure 156/72 06/20/17 15:06 O2 Sat by Pulse Oximetry (%) 95 06/20/17 11:12 Intake & Output 06/17/17 06/18/17 06/19/17 06/20/17 23:59 23:59 23:59 23:59 Intake Total 480 170 Output Total 1450 1500 Balance -970 -1330 NAD awake and alert bradycardic + congestion on lung [place] soft NT/ND No LE edmea CBC, BMP 06/20/17 06:20 06/20/17 06:20 Current Medications Acetaminophen (Tylenol -) 650 mg PO Q4H PRN PRN Reason: FEVER OR PAIN Albuterol/Ipratropium (Duoneb -) 1 amp NEB Q6H PRN PRN Reason: SHORTNESS OF BREATH Last Admin: 06/20/17 14:24 Dose: 1 amp Amlodipine Besylate (Norvasc -) 2.5 mg PO DAILY [facility] Last Admin: 06/20/17 11:54 Dose: 2.5 mg Ascorbic Acid (Vitamin C -) 500 mg PO BID [facility] Last Admin: 06/20/17 11:54 Dose: 500 mg Emollient Ointment (Lanolin Topical Ointment -) 1 applic TP BID [facility] Last Admin: 06/19/17 22:00 Dose: 1 applic Escitalopram Oxalate (Lexapro -) 20 mg PO DAILY [facility] Last Admin: 06/20/17 11:52 Dose: 20 mg Ferrous Sulfate (Feosol -) 325 mg PO BID [facility] Last Admin: 06/20/17 11:53 Dose: 325 mg Heparin Sodium (Porcine) (Heparin -) 5,000 unit SQ BID [facility] Last Admin: 06/20/17 11:55 Dose: 5,000 unit Multivitamins/Minerals/Vitamin C (Tab-A-Vit -) 1 tab PO DAILY [facility] Last Admin: 06/20/17 11:53 Dose: 1 tab Nystatin (Nystop Powder -) 1 applic TP BID [facility] Last Admin: 06/20/17 11:56 Dose: 1 applic Olanzapine 2.5 mg/ Olanzapine (5 mg) 7.5 mg PO DAILY [facility] Last Admin: 06/20/17 11:52 Dose: 7.5 mg Wtnxt-3-Elqi Ethyl Esters (Lovaza -) 1 gm PO DAILY [facility] Last Admin: 06/20/17 11:54 Dose: 1 gm Ranitidine HCl (Zantac -) 150 mg PO BID [facility] Last Admin: 06/20/17 11:53 Dose: 150 mg Tamsulosin HCl (Flomax -) 0.4 mg PO DAILY [facility] Last Admin: 06/20/17 11:54 Dose: 0.4 mg Triamcinolone Acetonide (Aristocort 0.1% Lotion -) 1 applic TP BID [facility] Last Admin: 06/19/17 22:28 Dose: 1 applic 86 year old gentleman with PMhx of CHF with preserved LVF, CKD Stage 4 ( baseline Cr ~2.5), BPH who presented from [place] with SOB and admitted for suspected sepsis with SUZI with Cr of 3.8. #Acute on Chronic renal insufficiency with hyperkalemia and mild volume expansion Renal function mildly improved, pt is non-oliguric pt appears to be auto-diuresing holding Lasix for the time being continue to trend BUN/Cr and volume status no IVF #Sepsis syndrome continue Emperic Abx f/u cultures reports Supportive care prognosis guarded DNR/DNI Teja Mercedes DO
[2017-06-20] MEDS: LANOLIN (EMOLL) 30 GM TUBE TP SCH (21:39)
[2017-06-20] MEDS: TRIAMCINOLONE ACET 0.1% 60 ML LOTION TP SCH (22:23)
[2017-06-21 10:01] LABS: BASOPHIL 0.2 % (0-2.0); EOSINOPHIL 0.7 % (0-4.5); MCH 29.4 pg (25.7-33.7); MCHC 32.6 g/dl (32.0-35.9); MEAN CELL VOLUME 90.3 fl (80-96); MEAN PLT VOLUME 8.6 fl (7.5-11.1); NEUTROPHILS 89.3 % (42.8-82.8); PLATELET COUNT 237 K/MM3 (134-434); RDW 17.2 % (11.9-15.9); WHITE BLOOD COUNT 7.5 K/mm3 (4.0-10.0)
--- NOTE | 2017-06-21 10:09 | PN ---
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 Yesterday pt was stable, good appetite, but with coughing lunch time, then desatted needing respiratory treatment. CXR -CHF. Pt NPO after wheezing yesterday, unable to have MBS. Seen bedside on non-rebreather. Pt had desat to low 80's this am, stable on non rebreather. Case reviewed with Nephrology. Sepsis improving. Congested, likely CHF. Continue NPO for now.Prognosis guarded.
[2017-06-21] MEDS ORDERED: FUROSEMIDE 40 MG/4 ML INJECTABLE VIAL IVPUSH ONE (11:00)
[2017-06-21 11:25] LABS: CALCIUM 8.4 mg/dL (8.5-10.1)
--- NOTE | 2017-06-21 11:26 | PN ---
Progress Note, Physician Chief Complaint: Events noted Lethargic Tachycardic History of Present Illness: Patient was seen and examined. Lethargic. Chart was reviewed - Current Medication List Current Medications: Active Medications Acetaminophen (Tylenol -) 650 mg PO Q4H PRN PRN Reason: FEVER OR PAIN Last Admin: 06/20/17 21:38 Dose: 650 mg Albuterol/Ipratropium (Duoneb -) 1 amp NEB Q6H PRN PRN Reason: SHORTNESS OF BREATH Last Admin: 06/20/17 14:24 Dose: 1 amp Amlodipine Besylate (Norvasc -) 2.5 mg PO DAILY [facility] Last Admin: 06/20/17 11:54 Dose: 2.5 mg Ascorbic Acid (Vitamin C -) 500 mg PO BID [facility] Last Admin: 06/20/17 21:39 Dose: 500 mg Emollient Ointment (Lanolin Topical Ointment -) 1 applic TP BID [facility] Last Admin: 06/20/17 21:39 Dose: 1 applic Escitalopram Oxalate (Lexapro -) 20 mg PO DAILY [facility] Last Admin: 06/20/17 11:52 Dose: 20 mg Ferrous Sulfate (Feosol -) 325 mg PO BID [facility] Last Admin: 06/20/17 21:38 Dose: 325 mg Heparin Sodium (Porcine) (Heparin -) 5,000 unit SQ BID [facility] Last Admin: 06/20/17 21:40 Dose: 5,000 unit Multivitamins/Minerals/Vitamin C (Tab-A-Vit -) 1 tab PO DAILY [facility] Last Admin: 06/20/17 11:53 Dose: 1 tab Nystatin (Nystop Powder -) 1 applic TP BID [facility] Last Admin: 06/20/17 21:40 Dose: 1 applic Olanzapine 2.5 mg/ Olanzapine (5 mg) 7.5 mg PO DAILY [facility] Last Admin: 06/20/17 11:52 Dose: 7.5 mg Kmiwn-1-Yzcg Ethyl Esters (Lovaza -) 1 gm PO DAILY [facility] Last Admin: 06/20/17 11:54 Dose: 1 gm Ranitidine HCl (Zantac -) 150 mg PO BID [facility] Last Admin: 06/20/17 21:38 Dose: 150 mg Tamsulosin HCl (Flomax -) 0.4 mg PO DAILY [facility] Last Admin: 06/20/17 11:54 Dose: 0.4 mg Triamcinolone Acetonide (Aristocort 0.1% Lotion -) 1 applic TP BID [facility] Last Admin: 06/20/17 22:23 Dose: 1 applic - Objective Vital Signs: Vital Signs Temperature 97.5 F L 06/21/17 06:04 Pulse Rate 93 H 06/21/17 10:00 Respiratory Rate 20 06/21/17 06:04 Blood Pressure 155/58 06/21/17 06:04 O2 Sat by Pulse Oximetry (%) 96 06/21/17 10:00 Cardiovascular: Yes: Pulse Irregular, S1, S2 Respiratory: Yes: Diminished Gastrointestinal: Yes: Normal Bowel Sounds, Soft. No: Tenderness Edema: No Labs: CBC, BMP 06/21/17 06:00 Problem List - Problems (1) Acute on chronic renal failure Code(s): N17.9 - ACUTE KIDNEY FAILURE, UNSPECIFIED; N18.9 - CHRONIC KIDNEY DISEASE, UNSPECIFIED (2) Anemia Code(s): D64.9 - ANEMIA, UNSPECIFIED Qualifiers: Qualified Code(s): D50.0 - Iron deficiency anemia secondary to blood loss ( chronic) (3) HTN (hypertension) Code(s): I10 - ESSENTIAL (PRIMARY) HYPERTENSION Qualifiers: Qualified Code(s): I10 - Essential (primary) hypertension (4) Bradycardia Code(s): R00.1 - BRADYCARDIA, UNSPECIFIED (5) Dementia Code(s): F03.90 - UNSPECIFIED DEMENTIA WITHOUT BEHAVIORAL DISTURBANCE (6) Schizo-affective schizophrenia, chronic condition Code(s): F25.8 - OTHER SCHIZOAFFECTIVE DISORDERS (7) CAD (coronary artery disease) Code(s): I25.10 - ATHSCL HEART DISEASE OF [place] CORONARY ARTERY W/O ANG PCTRS (8) UTI (urinary tract infection) Code(s): N39.0 - URINARY TRACT INFECTION, SITE NOT SPECIFIED Qualifiers: Qualified Code(s): N39.0 - Urinary tract infection, site not specified (9) Sepsis Code(s): A41.9 - SEPSIS, UNSPECIFIED ORGANISM Qualifiers: Qualified Code(s): A41.9 - Sepsis, unspecified organism (10) Metabolic encephalopathy Code(s): G93.41 - METABOLIC ENCEPHALOPATHY Assessment/Plan 1. Sepsis source with toxic metabolic encephalopathy 2. Atrial fibrillation with slow ventricular response most likely related to AV micha disease 3. Coronary artery disease angina pectoris 4. Diastolic dysfunction with chronic class I [place] [employer] classification left ventricular failure, compensated/euvolemic 5. Aortic stenosis moderate in severity 6. HTN/HCVD 7. Dementia, organic brain syndrome 8. CKD 9. Hypernatremia 10. Anemia PLAN: 1. Free water repletion for treatment of hypernatremia 2. Recommend avoidance of AV micha blocking agents 3. Continue Norvasc and Lovaza 4. Completed antibiotics course 5. No indications for PPM given explanation outlined on previous note 6. Patient was transferred to floor care from the cardiovascular point of view and no additional intervention is indicated 7. DVT and GI prophylaxis Supportive care Enrrique Pérez MD
[2017-06-21 11:29] LABS: ANION GAP 9 (8-16); CO2 25 mmol/L (21-32); CREATININE 4.2 mg/dL (0.7-1.3); GLUCOSE,RANDOM 95 mg/dL (74-106); MAGNESIUM 2.3 mg/dL (1.8-2.4)
--- NOTE | 2017-06-21 11:36 | PN ---
Progress Note (short form) - Note Progress Note: lethargic Current Medications Generic Name Dose Route Start Last Admin Trade Name Freq PRN Reason Stop Dose Admin Acetaminophen 650 mg 06/14/17 15:08 06/20/17 21:38 Tylenol - PO 650 mg Q4H PRN Administration FEVER OR PAIN Albuterol/Ipratropium 1 amp 06/15/17 11:06 06/20/17 14:24 Duoneb - NEB 1 amp Q6H PRN Administration SHORTNESS OF BREATH Amlodipine Besylate 2.5 mg 06/19/17 11:30 06/20/17 11:54 Norvasc - PO 2.5 mg DAILY [facility] Administration Ascorbic Acid 500 mg 06/14/17 22:00 06/20/17 21:39 Vitamin C - PO 500 mg BID [facility] Administration Emollient Ointment 1 applic 06/14/17 22:00 06/20/17 21:39 Lanolin Topical Ointment - TP 1 applic BID [facility] Administration Escitalopram Oxalate 20 mg 06/15/17 10:00 06/20/17 11:52 Lexapro - PO 20 mg DAILY [facility] Administration Ferrous Sulfate 325 mg 06/14/17 22:00 06/20/17 21:38 Feosol - PO 325 mg BID [facility] Administration Heparin Sodium (Porcine) 5,000 unit 06/14/17 22:00 06/20/17 21:40 Heparin - SQ 5,000 unit BID [facility] Administration Multivitamins/Minerals/Vitamin C 1 tab 06/15/17 10:00 06/20/17 11:53 Tab-A-Vit - PO 1 tab DAILY [facility] Administration Nystatin 1 applic 06/14/17 22:00 06/20/17 21:40 Nystop Powder - TP 1 applic BID [facility] Administration Olanzapine 2.5 mg/ Olanzapine 7.5 mg 06/15/17 10:00 06/20/17 11:52 5 mg PO 7.5 mg DAILY [facility] Administration Uvlek-8-Qzgh Ethyl Esters 1 gm 06/15/17 10:00 06/20/17 11:54 Lovaza - PO 1 gm DAILY [facility] Administration Ranitidine HCl 150 mg 06/14/17 22:00 06/20/17 21:38 Zantac - PO 150 mg BID [facility] Administration Tamsulosin HCl 0.4 mg 06/15/17 10:00 11/08/17 11:54 Flomax - PO 0.4 mg DAILY [facility] Administration Triamcinolone Acetonide 1 applic 06/14/17 22:00 06/20/17 22:23 Aristocort 0.1% Lotion - TP 1 applic BID [facility] Administration Last Vital Signs Temp Pulse Resp BP Pulse Ox 97.5 F L 93 H 20 155/58 96 06/21/17 06:04 06/21/17 10:00 06/21/17 06:04 06/21/17 06:04 06/21/17 10:00 Intake & Output 06/18/17 06/19/17 06/20/17 06/21/17 23:59 23:59 23:59 23:59 Intake Total 480 170 0 0 Output Total 1450 1500 100 500 Balance -970 -1330 -100 -500 General lethargic. minimally responsive to painful stimuli CV S1 S2 tachycardic Lungs coarse breath sound anteriorly. decreased sounds at base Abdomen soft NT/ND Extremities trace pitting edema CBCD WBC 7.5 K/mm3 (4.0-10.0) 06/21/17 06:00 RBC 2.99 M/mm3 (4.00-5.60) L 06/21/17 06:00 Hgb 8.8 GM/dL (11.7-16.9) L 06/21/17 06:00 Hct 27.0 % (35.4-49) L 06/21/17 06:00 MCV 90.3 fl (80-96) 06/21/17 06:00 MCHC 32.6 g/dl (32.0-35.9) 06/21/17 06:00 RDW 17.2 % (11.9-15.9) H 06/21/17 06:00 Plt Count 237 K/MM3 (134-434) 06/21/17 06:00 MPV 8.6 fl (7.5-11.1) 06/21/17 06:00 CMP Sodium 152 mmol/L (136-145) H 06/21/17 06:00 Potassium 4.3 mmol/L (3.5-5.1) 06/21/17 06:00 Chloride 118 mmol/L (98-107) H 06/21/17 06:00 Carbon Dioxide 25 mmol/L (21-32) 06/21/17 06:00 Anion Gap 9 (8-16) 06/21/17 06:00 BUN 62 mg/dL (7-18) H 06/21/17 06:00 Creatinine 4.2 mg/dL (0.7-1.3) H 06/21/17 06:00 Creat Clearance w eGFR 12.79 (>60) 06/18/17 05:18 Calcium 8.4 mg/dL (8.5-10.1) L 06/21/17 06:00 Total Bilirubin 0.3 mg/dL (0.2-1.0) D 06/18/17 05:18 AST 9 U/L (15-37) L D 06/18/17 05:18 ALT 25 U/L (12-78) 06/18/17 05:18 Alkaline Phosphatase 130 U/L (45-117) H 06/18/17 05:18 Total Protein 5.4 g/dl (6.4-8.2) L 06/18/17 05:18 Albumin 2.3 g/dl (3.4-5.0) L 06/18/17 05:18 A/P 86yo M with PMH dementia, CHF, CKD, CAD and SSS came to the ER due to AMS 1. Acute metabolic encephalopathy- likely due to sepsis and bradycardia. currently worse than baseline (typically would respond to some questions but quickly fall back asleep). likely due to acute hypoxia due to volume overload. awaiting labs to determine if hypernatremia component. close monitoring for now. follow up labs. repeat UA to ensure infection has cleared. 2. Acute hypoxic respiratory distress- currently 98% on non rebreater. not a candidate for bipap due to poor mental status. pt is DNI 3. Sepsis due to UTI- completed 5 day course of Zosyn. off abx since 06/18. cx all negative 4. Acute on CKD- baseline Cr 3.2-3.5. likely pre-renal. no signs of obstruction had good UOP up till yesterday now ogliuric. spoke with neprhology who will give lasix IV 80mg and monitor for response. maintain harris 5. Hypernatremia- stable. likely not contributing to mental status. will trend for now and hold free water as pt is already volume overload 6. Dementia- hold all sedating medications. hold zyprexa 7. Iron def anemia and anemia of chronic disease- hgb stable. on iron supplements 8. DVT ppx- hep sq 9. DNR/DNI. poor prognosis. palliative care consulted Visit type - Emergency Visit Emergency Visit: Yes ED Registration Date: 06/14/17 Care time: The patient presented to the Emergency Department on the above date and was hospitalized for further evaluation of their emergent condition. - New Patient This patient is new to me today: Yes Date on this admission: 06/21/17 - Critical Care Critical Care patient: No - Discharge Referral Referred to [facility] Med P.C.: No
[2017-06-21] MEDS: FERROUS SO4 325 MG TABLET (FP) PO SCH ×2 (11:49→21:21)
[2017-06-21] MEDS: TAMSULOSIN HCL 0.4 MG CAP.ER.24H (FP) PO SCH (11:49)
[2017-06-21] MEDS: amLODIPine BESYLATE 2.5 MG TABLET (FP) PO SCH (11:50)
[2017-06-21] MEDS: OMEGA-3 ACID ETHYL ESTERS (FATTY-ACIDS) 1 GM CAPSULE (FP) PO SCH (11:50)
[2017-06-21] MEDS: ASCORBIC ACID 500 MG TABLET (FP) PO SCH ×2 (11:50→21:22)
[2017-06-21] MEDS: ESCITALOPRAM OXALATE 20 MG TABLET (FP) PO SCH (11:50)
[2017-06-21] MEDS: MULTIVITAMINS (DAILY MVI) TABLET (FP) PO SCH (11:50)
[2017-06-21] MEDS: RANITIDINE HCL 150 MG TABLET (FP) PO SCH ×2 (11:51→21:22)
[2017-06-21] MEDS: HEPARIN NA (PORCINE) 5,000 UNITS/ML 1ML VIAL SQ SCH ×2 (11:51→21:22)
[2017-06-21] MEDS: OLANZAPINE 2.5 MG, OLANZAPINE 5 MG PO SCH (11:51)
[2017-06-21] MEDS: TRIAMCINOLONE ACET 0.1% 60 ML LOTION TP SCH ×3 (11:53→21:23)
[2017-06-21] MEDS: NYSTATIN POWDER 100,000 UNITS/GM - 15 GM TOPICAL POWDER TP SCH ×2 (11:53→21:29)
[2017-06-21] MEDS: LANOLIN (EMOLL) 30 GM TUBE TP SCH ×3 (11:53→21:22)
--- NOTE | 2017-06-21 15:10 | PN ---
Progress Note (short form) - Note Progress Note: Renal follow up for SUZI on CKD Pt seen and examined at the bedside very lethargic not responsive to verbal stimuli pt noted to be hypoxic and placed on 100% NRB mask urine output minimal over the past 24 hours Vital Signs Temperature 98 F 06/21/17 13:08 Pulse Rate 76 06/21/17 13:08 Respiratory Rate 15 06/21/17 13:08 Blood Pressure 133/74 06/21/17 13:08 O2 Sat by Pulse Oximetry (%) 96 06/21/17 10:00 Intake & Output 06/18/17 06/19/17 06/20/17 06/21/17 23:59 23:59 23:59 23:59 Intake Total 480 170 0 0 Output Total 1450 1500 100 700 Balance -970 -1330 -100 -700 NAD awake and alert bradycardic + congestion on lung costello soft NT/ND No LE edema CBC, BMP 06/21/17 06:00 06/21/17 06:00 Laboratory Tests 06/21/17 06:00 Calcium 8.4 L Phosphorus 5.0 H Magnesium 2.3 Current Medications Acetaminophen (Tylenol -) 650 mg PO Q4H PRN PRN Reason: FEVER OR PAIN Last Admin: 06/20/17 21:38 Dose: 650 mg Albuterol/Ipratropium (Duoneb -) 1 amp NEB Q6H PRN PRN Reason: SHORTNESS OF BREATH Last Admin: 06/20/17 14:24 Dose: 1 amp Amlodipine Besylate (Norvasc -) 2.5 mg PO DAILY [facility] Last Admin: 06/21/17 11:50 Dose: Not Given Ascorbic Acid (Vitamin C -) 500 mg PO BID [facility] Last Admin: 06/21/17 11:50 Dose: Not Given Emollient Ointment (Lanolin Topical Ointment -) 1 applic TP BID [facility] Last Admin: 06/21/17 11:54 Dose: 1 applic Escitalopram Oxalate (Lexapro -) 20 mg PO DAILY [facility] Last Admin: 06/21/17 11:50 Dose: Not Given Ferrous Sulfate (Feosol -) 325 mg PO BID [facility] Last Admin: 06/21/17 11:49 Dose: Not Given Heparin Sodium (Porcine) (Heparin -) 5,000 unit SQ BID [facility] Last Admin: 11/09/17 11:51 Dose: 5,000 unit Multivitamins/Minerals/Vitamin C (Tab-A-Vit -) 1 tab PO DAILY [facility] Last Admin: 06/21/17 11:50 Dose: Not Given Nystatin (Nystop Powder -) 1 applic TP BID [facility] Last Admin: 06/21/17 11:53 Dose: 1 applic Qwvyo-3-[id number] Ethyl Esters (Lovaza -) 1 gm PO DAILY [facility] Last Admin: 06/21/17 11:50 Dose: Not Given Ranitidine HCl (Zantac -) 150 mg PO BID [facility] Last Admin: 06/21/17 11:51 Dose: Not Given Tamsulosin HCl (Flomax -) 0.4 mg PO DAILY [facility] Last Admin: 06/21/17 11:49 Dose: Not Given Triamcinolone Acetonide (Aristocort 0.1% Lotion -) 1 applic TP BID [facility] Last Admin: 06/21/17 11:54 Dose: 1 applic 86 year old gentleman with PMhx of CHF with preserved LVF, CKD Stage 4 ( baseline Cr ~2.5), BPH who presented from [place] with SOB and admitted for suspected sepsis with SUZI with Cr of 3.8. #Acute on Chronic renal insufficiency with hyperkalemia and mild volume expansion Renal function unchanged but remains significantly decreased from baseline urine output is now and pt with congestion on CXR Will give Lasix 80mg IVPB x 1 and monitor urine output #Hypernatremia Serum na now increased to 152 if pt remains lethargic and now improvement with diuresis in MS would consider low rate D5W in conjunction with further lasix if needed #Sepsis syndrome continue Empiric Abx f/u cultures reports Supportive care prognosis guarded DNR/DNI Teja Mercedes DO
[2017-06-21] MEDS: PIPERACILLIN/TAZOB 2.25 GM 2.25 GM/50 ML BAG IVPB SCH (16:02)
--- NOTE | 2017-06-21 16:25 | PN ---
Progress Note, Physician History of Present Illness: events noted patient with aspiration now condition is poor patient on breathing mask lethargic - Current Medication List Current Medications: Active Medications Acetaminophen (Tylenol -) 650 mg PO Q4H PRN PRN Reason: FEVER OR PAIN Last Admin: 06/20/17 21:38 Dose: 650 mg Albuterol/Ipratropium (Duoneb -) 1 amp NEB Q6H PRN PRN Reason: SHORTNESS OF BREATH Last Admin: 06/20/17 14:24 Dose: 1 amp Amlodipine Besylate (Norvasc -) 2.5 mg PO DAILY [facility] Last Admin: 06/21/17 11:50 Dose: Not Given Ascorbic Acid (Vitamin C -) 500 mg PO BID [facility] Last Admin: 06/21/17 11:50 Dose: Not Given Emollient Ointment (Lanolin Topical Ointment -) 1 applic TP BID [facility] Last Admin: 06/21/17 11:54 Dose: 1 applic Escitalopram Oxalate (Lexapro -) 20 mg PO DAILY [facility] Last Admin: 06/21/17 11:50 Dose: Not Given Ferrous Sulfate (Feosol -) 325 mg PO BID [facility] Last Admin: 06/21/17 11:49 Dose: Not Given Heparin Sodium (Porcine) (Heparin -) 5,000 unit SQ BID [facility] Last Admin: 06/21/17 11:51 Dose: 5,000 unit Piperacillin/Tazobactam/Dextrose (Zosyn 2.25gm Ivpb (Premix)) 2.25 gm in 50 mls @ 100 mls/hr IVPB Q8H-IV [facility] PRN Reason: Protocol Multivitamins/Minerals/Vitamin C (Tab-A-Vit -) 1 tab PO DAILY [facility] Last Admin: 06/21/17 11:50 Dose: Not Given Nystatin (Nystop Powder -) 1 applic TP BID [facility] Last Admin: 06/21/17 11:53 Dose: 1 applic Wyxbb-5-Tdlw Ethyl Esters (Lovaza -) 1 gm PO DAILY [facility] Last Admin: 06/21/17 11:50 Dose: Not Given Ranitidine HCl (Zantac -) 150 mg PO BID [facility] Last Admin: 06/21/17 11:51 Dose: Not Given Tamsulosin HCl (Flomax -) 0.4 mg PO DAILY [facility] Last Admin: 06/21/17 11:49 Dose: Not Given Triamcinolone Acetonide (Aristocort 0.1% Lotion -) 1 applic TP BID [facility] Last Admin: 06/21/17 11:54 Dose: 1 applic - Objective Vital Signs: Vital Signs Temperature 98 F 06/21/17 13:08 Pulse Rate 76 06/21/17 13:08 Respiratory Rate 15 06/21/17 13:08 Blood Pressure 133/74 06/21/17 13:08 O2 Sat by Pulse Oximetry (%) 96 06/21/17 10:00 Constitutional: Yes: Other Cardiovascular: Yes: Regular Rate and Rhythm Respiratory: Yes: On Venti-Mask, Poor Air Entry, Rhonchi, Other Gastrointestinal: Yes: Normal Bowel Sounds, Soft Musculoskeletal: Yes: WNL Extremities: Yes: WNL Neurological: Yes: Other Psychiatric: Yes: Other Labs: CBC, BMP 06/21/17 06:00 06/21/17 06:00 INR, PTT INR 1.01 (0.82-1.09) 06/14/17 11:00 Assessment/Plan Problem List - Problems (1) Sepsis Code(s): A41.9 - SEPSIS, UNSPECIFIED ORGANISM Qualifiers: Sepsis type: sepsis due to unspecified organism Qualified Code(s): A41.9 - Sepsis, unspecified organism; A41.9 - Sepsis, unspecified organism; A41.9 - Sepsis, unspecified organism (2) Metabolic encephalopathy Code(s): G93.41 - METABOLIC ENCEPHALOPATHY (3) Bradycardia Code(s): R00.1 - BRADYCARDIA, UNSPECIFIED (4) UTI (urinary tract infection) Code(s): N39.0 - URINARY TRACT INFECTION, SITE NOT SPECIFIED Qualifiers: Urinary tract infection type: site unspecified Hematuria presence: without hematuria Qualified Code(s): N39.0 - Urinary tract infection, site not specified; N39.0 - Urinary tract infection, site not specified; R31.9 - Hematuria, unspecified; R31.9 - Hematuria, unspecified (5) Acute on chronic renal failure Code(s): N17.9 - ACUTE KIDNEY FAILURE, UNSPECIFIED N18.9 - CHRONIC KIDNEY DISEASE, UNSPECIFIED (6) Hyperkalemia Code(s): E87.5 - HYPERKALEMIA (7) Anemia Code(s): D64.9 - ANEMIA, UNSPECIFIED Qualifiers: 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 Code(s): D50.0 - Iron deficiency anemia secondary to blood loss (chronic); D50.0 - Iron deficiency anemia secondary to blood loss (chronic) (8) CAD (coronary artery disease) Code(s): I25.10 - ATHSCL HEART DISEASE OF [place] CORONARY ARTERY W/O ANG PCTRS (9) CHF (congestive heart failure) Code(s): I50.9 - HEART FAILURE, UNSPECIFIED Qualifiers: Congestive heart failure type: diastolic Congestive heart failure chronicity: chronic Qualified Code(s): I50.32 - Chronic diastolic ( congestive) heart failure; I50.32 - Chronic diastolic (congestive) heart failure ; I50.32 - Chronic diastolic (congestive) heart failure; I50.32 - Chronic diastolic (congestive) heart failure (10) Dementia Code(s): F03.90 - UNSPECIFIED DEMENTIA WITHOUT BEHAVIORAL DISTURBANCE (11) HTN (hypertension) Code(s): I10 - ESSENTIAL (PRIMARY) HYPERTENSION patient received vanco and zojamie plan will start patient on abx continue to monitor rest as per primary prognosis is poor
[2017-06-21] MEDS: CLINDAMYCIN 300 MG PREMIX IVPB 300 MG/50 ML BAG IVPB SCH ×2 (17:01→21:21)
[2017-06-21 20:05] LABS: URINE APPEARANCE CLOUDY; URINE BILIRUBIN NEGATIVE (NEGATIVE); URINE BLOOD NEGATIVE (NEGATIVE); URINE COLOR LTYELLOW; URINE GLUCOSE (UA) NEGATIVE (NEGATIVE); URINE KETONE NEGATIVE (NEGATIVE); URINE NITRITE NEGATIVE (NEGATIVE); URINE UROBILINOGEN NEGATIVE mg/dL (0.2-1.0)
[2017-06-21 20:08] LABS: URINE PROTEIN 2+ (NEGATIVE)
[2017-06-21 21:22] LABS: URINE LEUK ESTERASE 2+ (NEGATIVE)
[2017-06-22] MEDS: PIPERACILLIN/TAZOB 2.25 GM 2.25 GM/50 ML BAG IVPB SCH ×4 (02:34→17:14)
[2017-06-22] MEDS: CLINDAMYCIN 300 MG PREMIX IVPB 300 MG/50 ML BAG IVPB SCH ×4 (02:55→21:42)
[2017-06-22 07:00] LABS: BASOPHIL 0.4 % (0-2.0); EOSINOPHIL 0.8 % (0-4.5); MCH 29.5 pg (25.7-33.7); MCHC 32.4 g/dl (32.0-35.9); MEAN CELL VOLUME 91.1 fl (80-96); MEAN PLT VOLUME 8.4 fl (7.5-11.1); NEUTROPHILS 85.3 % (42.8-82.8); PLATELET COUNT 258 K/MM3 (134-434); RDW 17.6 % (11.9-15.9)
[2017-06-22 08:01] LABS: ANION GAP 14 (8-16); CALCIUM 8.3 mg/dL (8.5-10.1); CO2 22 mmol/L (21-32); CREATININE 4.6 mg/dL (0.7-1.3); GLUCOSE,RANDOM 80 mg/dL (74-106)
[2017-06-22] MEDS: RANITIDINE HCL 150 MG TABLET (FP) PO SCH ×2 (09:17→21:44)
[2017-06-22] MEDS: ASCORBIC ACID 500 MG TABLET (FP) PO SCH ×2 (09:17→21:44)
[2017-06-22] MEDS: amLODIPine BESYLATE 2.5 MG TABLET (FP) PO SCH (10:11)
[2017-06-22] MEDS: ESCITALOPRAM OXALATE 20 MG TABLET (FP) PO SCH (10:11)
[2017-06-22] MEDS: FERROUS SO4 325 MG TABLET (FP) PO SCH ×2 (10:11→21:43)
[2017-06-22] MEDS: TAMSULOSIN HCL 0.4 MG CAP.ER.24H (FP) PO SCH (10:11)
[2017-06-22] MEDS: LANOLIN (EMOLL) 30 GM TUBE TP SCH ×2 (10:11→21:43)
[2017-06-22] MEDS: OMEGA-3 ACID ETHYL ESTERS (FATTY-ACIDS) 1 GM CAPSULE (FP) PO SCH (10:11)
[2017-06-22] MEDS: TRIAMCINOLONE ACET 0.1% 60 ML LOTION TP SCH ×2 (10:11→21:44)
[2017-06-22] MEDS: MULTIVITAMINS (DAILY MVI) TABLET (FP) PO SCH (10:12)
[2017-06-22] MEDS: NYSTATIN POWDER 100,000 UNITS/GM - 15 GM TOPICAL POWDER TP SCH ×2 (10:12→21:43)
[2017-06-22] MEDS ORDERED: FUROSEMIDE 40 MG/4 ML INJECTABLE VIAL IVPUSH ONE (12:04)
--- NOTE | 2017-06-22 12:10 | PN ---
Physical Exam: Medicine coverage for Dr. Diaz SUBJECTIVE: Patient seen and examined. He is lethargic, opens eyes momentarily. OBJECTIVE: Vital Signs Period Temp Pulse Resp BP Sys/Jeronimo Pulse Ox Last 24 Hr 98 F-98.9 F 76-90 15-22 130-143/55-75 96-96 Pe Neuro: opens eyes to touch Pulm: upper resp rhonchi, b/l crackles + NRB, paradoxal breathing CV: s1 s2 rrr Abd: s nt nd + bs Ext: R mcgill redness, no le edema Laboratory Results - last 24 hr 06/21/17 06/21/17 06/22/17 17:30 17:30 06:10 WBC 9.0 RBC 2.85 L Hgb 8.4 L Hct 26.0 L MCV 91.1 MCH 29.5 MCHC 32.4 RDW 17.6 H Plt Count 258 MPV 8.4 Neutrophils % 85.3 H Lymphocytes % 4.6 L D Monocytes % 8.9 Eosinophils % 0.8 Basophils % 0.4 Sodium Potassium Chloride Carbon Dioxide Anion Gap BUN Creatinine Random Glucose Calcium Urine Color Ltyellow Urine Appearance Cloudy Urine pH 5.0 Ur Specific [place] 1.010 Urine Protein 2+ H Urine Glucose (UA) Negative Urine Ketones Negative Urine Blood Negative Urine Nitrite Negative Urine Bilirubin Negative Urine Urobilinogen Negative Ur Leukocyte Esterase 2+ H Urine RBC Cancelled Cancelled Urine WBC Cancelled Cancelled Ur Epithelial Cells Cancelled Cancelled Urine Crystals Cancelled Cancelled Calcium Oxalate Crystal Cancelled Cancelled Uric Acid Crystals Cancelled Cancelled Triple Phos Crystals Cancelled Cancelled Amorphous Phosphates Cancelled Cancelled Amorphous Urates Cancelled Cancelled Amorphous Sediment Cancelled Cancelled Urine Bacteria Cancelled Cancelled Urine Casts Cancelled Cancelled Hyaline Casts Cancelled Cancelled Granular Casts Cancelled Cancelled Waxy Casts Cancelled Cancelled RBC Casts Cancelled Cancelled WBC Casts Cancelled Cancelled Urine Mucus Cancelled Cancelled Urine Other Cancelled Cancelled Urine Trichomonas Cancelled Cancelled Urine Yeast Cancelled Cancelled 06/22/17 06:10 WBC RBC Hgb Hct MCV MCH MCHC RDW Plt Count MPV Neutrophils % Lymphocytes % Monocytes % Eosinophils % Basophils % Sodium 155 H Potassium 4.7 Chloride 119 H Carbon Dioxide 22 Anion Gap 14 BUN 66 H Creatinine 4.6 H Random Glucose 80 Calcium 8.3 L Urine Color Urine Appearance Urine pH Ur Specific [place] Urine Protein Urine Glucose (UA) Urine Ketones Urine Blood Urine Nitrite Urine Bilirubin Urine Urobilinogen Ur Leukocyte Esterase Urine RBC Urine WBC Ur Epithelial Cells Urine Crystals Calcium Oxalate Crystal Uric Acid Crystals Triple Phos Crystals Amorphous Phosphates Amorphous Urates Amorphous Sediment Urine Bacteria Urine Casts Hyaline Casts Granular Casts Waxy Casts RBC Casts WBC Casts Urine Mucus Urine Other Urine Trichomonas Urine Yeast Active Medications Generic Name Dose Route Start Last Admin Trade Name Freq PRN Reason Stop Dose Admin Acetaminophen 650 mg 06/14/17 15:08 06/20/17 21:38 Tylenol - PO 650 mg Q4H PRN Administration FEVER OR PAIN Albuterol/Ipratropium 1 amp 06/15/17 11:06 06/20/17 14:24 Duoneb - NEB 1 amp Q6H PRN Administration SHORTNESS OF BREATH Amlodipine Besylate 2.5 mg 06/19/17 11:30 06/22/17 10:11 Norvasc - PO Not Given DAILY CINTHYA Ascorbic Acid 500 mg 06/14/17 22:00 06/22/17 09:17 Vitamin C - PO Not Given BID [facility] Emollient Ointment 1 applic 06/14/17 22:00 06/22/17 10:11 Lanolin Topical Ointment - TP 1 applic BID CINTHYA Administration Escitalopram Oxalate 20 mg 06/15/17 10:00 06/22/17 10:11 Lexapro - PO Not Given DAILY CINTHYA Ferrous Sulfate 325 mg 06/14/17 22:00 06/22/17 10:11 Feosol - PO Not Given BID CINTHYA Furosemide 80 mg 06/22/17 12:04 Lasix Injection - IVPUSH 06/22/17 12:05 ONCE ONE Piperacillin/Tazobactam/Dextrose 2.25 gm in 50 mls @ 100 mls/hr 06/21/17 16: 30 06/22/17 10:10 Zosyn 2.25gm Ivpb (Premix) IVPB 100 mls/hr Q8H-IV CINTHYA Administration Protocol Clindamycin Phosphate 300 mg in 50 mls @ 104 mls/hr 06/21/17 16:30 06/22/17 09:08 Cleocin 300 Mg Premix Ivpb IVPB 104 mls/hr Q6H-IV CINTHYA Administration Dextrose 1,000 mls @ 42 mls/hr 06/22/17 12:15 D5w - IV [id number] CINTHYA Multivitamins/Minerals/Vitamin C 1 tab 06/15/17 10:00 06/22/17 10:12 Tab-A-Vit - PO Not Given DAILY CINTHYA Nystatin 1 applic 06/14/17 22:00 06/22/17 10:12 Nystop Powder - TP 1 applic BID CINTYHA Administration [id number] Ethyl Esters 1 gm 06/15/17 10:00 06/22/17 10:11 Lovaza - PO Not Given DAILY CINTHYA Ranitidine HCl 150 mg 06/14/17 22:00 06/22/17 09:17 Zantac - PO Not Given BID CINTHYA Tamsulosin HCl 0.4 mg 06/15/17 10:00 06/22/17 10:11 Flomax - PO Not Given DAILY CINTHYA Triamcinolone Acetonide 1 applic 06/14/17 22:00 06/22/17 10:11 Aristocort 0.1% Lotion - TP 1 applic BID CINTHYA Administration Assessment: 86 year old male with PMH dementia, CHF, CKD, CAD and SSS admitted with AMS Plan: 1. Acute metabolic encephalopathy - Likely due to sepsis - Mental status not improved today, very lethargic - Repeat UA no wbc, however show cancelled - Sodium rising - Start d5 @42cc/hr 2. Acute hypoxic respiratory distress - Maintain non re breather, no bipap due to mental status - Re dose lasix 80mg x1 IVP - Increase duonebs q4 scheduled 3. Sepsis due to UTI - Restarted zosyn/clinda per ID 4. Acute on CKD - Keep harris - Re dose lasix, resp appears unimproved - D/w nephrology 5. Hypervolemic Hypernatremia - Rising, vol overloaded - Start low rate free water 6. Dementia - Hold all sedating medications - Hold zyprexa 7. 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 DVT ppx- hep sq CODE STAUS: DNR/DNI. poor prognosis. palliative care consulted Visit type - Emergency Visit Emergency Visit: Yes ED Registration Date: 06/14/17 Care time: The patient presented to the Emergency Department on the above date and was hospitalized for further evaluation of their emergent condition. - New Patient This patient is new to me today: Yes Date on this admission: 06/22/17 - Critical Care Critical Care patient: No
[2017-06-22] MEDS ORDERED: DEXTROSE 5%-WATER - 1,000 ML IV SCH ×2 (12:15→12:25)
--- NOTE | 2017-06-22 12:21 | PN ---
Progress Note, Physician History of Present Illness: Patient with increased O2 requirement and more lethargic. - Current Medication List Current Medications: Active Medications Acetaminophen (Tylenol -) 650 mg PO Q4H PRN PRN Reason: FEVER OR PAIN Last Admin: 06/20/17 21:38 Dose: 650 mg Albuterol/Ipratropium (Duoneb -) 1 amp NEB Q4HPO [facility] [place] Amlodipine Besylate (Norvasc -) 2.5 mg PO DAILY [facility] [place] Last Admin: 06/22/17 10:11 Dose: Not Given Ascorbic Acid (Vitamin C -) 500 mg PO BID [facility] Last Admin: 06/22/17 09:17 Dose: Not Given Emollient Ointment (Lanolin Topical Ointment -) 1 applic TP BID [facility] Last Admin: 06/22/17 10:11 Dose: 1 applic Escitalopram Oxalate (Lexapro -) 20 mg PO DAILY [facility] Last Admin: 06/22/17 10:11 Dose: Not Given Ferrous Sulfate (Feosol -) 325 mg PO BID [facility] Last Admin: 06/22/17 10:11 Dose: Not Given Piperacillin/Tazobactam/Dextrose (Zosyn 2.25gm Ivpb (Premix)) 2.25 gm in 50 mls @ 100 mls/hr IVPB Q8H-IV [facility] PRN Reason: Protocol Last Admin: 06/22/17 10:10 Dose: 100 mls/hr Clindamycin Phosphate (Cleocin 300 Mg Premix Ivpb) 300 mg in 50 mls @ 104 mls/ hr IVPB Q6H-IV [facility] Last Admin: 06/22/17 09:08 Dose: 104 mls/hr Dextrose (D5w -) 1,000 mls @ 42 mls/hr IV Q24H [facility] [place] Multivitamins/Minerals/Vitamin C (Tab-A-Vit -) 1 tab PO DAILY [facility] Last Admin: 06/22/17 10:12 Dose: Not Given Nystatin (Nystop Powder -) 1 applic TP BID [facility] Last Admin: 06/22/17 10:12 Dose: 1 applic [id number]-[id number] Ethyl Esters (Lovaza -) 1 gm PO DAILY [facility] Last Admin: 06/22/17 10:11 Dose: Not Given Ranitidine HCl (Zantac -) 150 mg PO BID [facility] [place] Last Admin: 06/22/17 09:17 Dose: Not Given Tamsulosin HCl (Flomax -) 0.4 mg PO DAILY [facility] Last Admin: 06/22/17 10:11 Dose: Not Given Triamcinolone Acetonide (Aristocort 0.1% Lotion -) 1 applic TP BID [facility] Last Admin: 06/22/17 10:11 Dose: 1 applic - Objective Vital Signs: Vital Signs Temperature 98.9 F 06/22/17 05:00 Pulse Rate 84 06/22/17 10:00 Respiratory Rate 20 06/22/17 05:00 Blood Pressure 143/55 06/22/17 05:00 O2 Sat by Pulse Oximetry (%) 96 06/22/17 10:00 Constitutional: Yes: No Distress, Calm Neck: Yes: Supple Cardiovascular: Yes: Pulse Irregular, Murmur (2/6 SM) Respiratory: Yes: Regular, Diminished, On Venti-Mask Gastrointestinal: Yes: Normal Bowel Sounds, Soft Edema: No Labs: CBC, BMP 06/22/17 06:10 06/22/17 06:10 INR, PTT INR 1.01 (0.82-1.09) 06/14/17 11:00 Problem List - Problems (1) Metabolic encephalopathy Code(s): G93.41 - METABOLIC ENCEPHALOPATHY (2) CAD (coronary artery disease) Code(s): I25.10 - ATHSCL HEART DISEASE OF [place] CORONARY ARTERY W/O ANG PCTRS Qualifiers: Coronary Disease-Associated Artery/Lesion type: [place] artery Associated angina: without angina (3) CHF (congestive heart failure) Code(s): I50.9 - HEART FAILURE, UNSPECIFIED Qualifiers: Congestive heart failure type: diastolic Congestive heart failure chronicity: chronic Qualified Code(s): I50.32 - Chronic diastolic (congestive ) heart failure (4) Dementia Code(s): F03.90 - UNSPECIFIED DEMENTIA WITHOUT BEHAVIORAL DISTURBANCE Qualifiers: Dementia type: Alzheimer's disease (5) HTN (hypertension) Code(s): I10 - ESSENTIAL (PRIMARY) HYPERTENSION Qualifiers: Hypertension type: essential hypertension Qualified Code(s): I10 - Essential (primary) hypertension (6) Sepsis Code(s): A41.9 - SEPSIS, UNSPECIFIED ORGANISM Qualifiers: Sepsis type: sepsis due to unspecified organism Qualified Code(s): A41.9 - Sepsis, unspecified organism (7) UTI (urinary tract infection) Code(s): N39.0 - URINARY TRACT INFECTION, SITE NOT SPECIFIED Qualifiers: Urinary tract infection type: site unspecified Hematuria presence: without hematuria Qualified Code(s): N39.0 - Urinary tract infection, site not specified (8) Atrial fibrillation with slow ventricular response Code(s): I48.91 - UNSPECIFIED ATRIAL FIBRILLATION (9) Diastolic dysfunction Code(s): I51.9 - HEART DISEASE, UNSPECIFIED (10) Moderate aortic stenosis Code(s): I35.0 - NONRHEUMATIC AORTIC (VALVE) STENOSIS (11) Hypernatremia Code(s): E87.0 - HYPEROSMOLALITY AND HYPERNATREMIA (12) Chronic kidney disease (CKD) Code(s): N18.9 - CHRONIC KIDNEY DISEASE, UNSPECIFIED Qualifiers: Chronic kidney disease stage: stage 4 (severe) Qualified Code(s): N18.4 - Chronic kidney disease, stage 4 (severe) (13) Anemia Code(s): D64.9 - ANEMIA, UNSPECIFIED Qualifiers: 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 Code(s): D50.0 - Iron deficiency anemia secondary to blood loss (chronic) Assessment/Plan 05/07/2017 Echo: Normal LV size and fxn, mod , mild TR 1. Sepsis source with toxic metabolic encephalopathy 2. Atrial fibrillation with slow ventricular response most likely related to AV micha disease 3. Coronary artery disease angina pectoris 4. Acute on chronic diastolic failure 5. Aortic stenosis moderate in severity 6. HTN/HCVD 7. Dementia, organic brain syndrome 8. CKD 9. Hypernatremia 10. Anemia PLAN: 1. Free water repletion for treatment of hypernatremia, IV diuresis with monitor diuretic response, renal fxn and electrolytes, consider check ABG to evaluate pCO2 2. Recommend avoidance of AV micha blocking agents 3. Continue Norvasc and Lovaza if tolerated 4. Resumed antibiotics course 5. No indications for PPM given explanation outlined on previous note 6. DVT and GI prophylaxis
--- NOTE | 2017-06-22 13:58 | PN ---
Progress Note (short form) - Note Progress Note: Renal follow up for SUZI on CKD Pt seen and examined at the bedside very lethargic on NRB mask difficult to arouse + congestion Vital Signs Temperature 98.9 F 06/22/17 05:00 Pulse Rate 98 H 06/22/17 10:00 Respiratory Rate 22 06/22/17 10:00 Blood Pressure 111/65 06/22/17 10:00 O2 Sat by Pulse Oximetry (%) 96 06/22/17 10:00 Intake & Output 06/19/17 06/20/17 06/21/17 06/22/17 23:59 23:59 23:59 23:59 Intake Total 170 0 50 254 Output Total 9182 775 3166 500 Balance -1330 -100 -1900 -246 awake and alert bradycardic + congestion on lung costello soft NT/ND No LE edema CBC, BMP 06/22/17 06:10 06/22/17 06:10 Current Medications Acetaminophen (Tylenol -) 650 mg PO Q4H PRN PRN Reason: FEVER OR PAIN Last Admin: 06/20/17 21:38 Dose: 650 mg Albuterol/Ipratropium (Duoneb -) 1 amp NEB Q4HPO [facility] Amlodipine Besylate (Norvasc -) 2.5 mg PO DAILY [facility] Last Admin: 06/22/17 10:11 Dose: Not Given Ascorbic Acid (Vitamin C -) 500 mg PO BID [facility] Last Admin: 06/22/17 09:17 Dose: Not Given Emollient Ointment (Lanolin Topical Ointment -) 1 applic TP BID [facility] Last Admin: 06/22/17 10:11 Dose: 1 applic Escitalopram Oxalate (Lexapro -) 20 mg PO DAILY [facility] Last Admin: 06/22/17 10:11 Dose: Not Given Ferrous Sulfate (Feosol -) 325 mg PO BID [facility] Last Admin: 06/22/17 10:11 Dose: Not Given Piperacillin/Tazobactam/Dextrose (Zosyn 2.25gm Ivpb (Premix)) 2.25 gm in 50 mls @ 100 mls/hr IVPB Q8H-IV CINTHYA PRN Reason: Protocol Last Admin: 06/22/17 10:10 Dose: 100 mls/hr Clindamycin Phosphate (Cleocin 300 Mg Premix Ivpb) 300 mg in 50 mls @ 104 mls/ hr IVPB Q6H-IV CINTHYA Last Admin: 06/22/17 09:08 Dose: 104 mls/hr Dextrose (D5w -) 1,000 mls @ 83 mls/hr IV ASDIR CINTHYA Multivitamins/Minerals/Vitamin C (Tab-A-Vit -) 1 tab PO DAILY [facility] Last Admin: 06/22/17 10:12 Dose: Not Given Nystatin (Nystop Powder -) 1 applic TP BID CINTHYA Last Admin: 06/22/17 10:12 Dose: 1 applic [id number]-5-[id number] Ethyl Esters (Lovaza -) 1 gm PO DAILY [facility] Last Admin: 06/22/17 10:11 Dose: Not Given Ranitidine HCl (Zantac -) 150 mg PO BID [facility] Last Admin: 06/22/17 09:17 Dose: Not Given Tamsulosin HCl (Flomax -) 0.4 mg PO DAILY [facility] Last Admin: 06/22/17 10:11 Dose: Not Given Triamcinolone Acetonide (Aristocort 0.1% Lotion -) 1 applic TP BID [facility] Last Admin: 06/22/17 10:11 Dose: 1 applic 86 year old gentleman with PMhx of CHF with preserved LVF, CKD Stage 4 ( baseline Cr ~2.5), BPH who presented from [place] with SOB and admitted for suspected sepsis with SUZI with Cr of 3.8. #Acute on Chronic renal insufficiency with hyperkalemia and mild volume expansion Renal function unchanged clinically remains volume overloaded continue IV lasix, consider BID dosing #Hypernatremia serum na kamilah to 155, start D5W trend na daily #Sepsis syndrome continue Empiric Abx f/u cultures reports Supportive care prognosis guarded DNR/DNI Teja Mercedes DO
[2017-06-22] MEDS: ALBUTEROL SO4 2.5/IPRATROPIUM 0.5 INH SOL 3 ML VIAL.NEB. NEB SCH ×3 (14:00→22:05)
[2017-06-22 14:24] LABS: ARTERIAL BLD GAS O2 SATURATION 97.5 % (90-98.9)
[2017-06-22 14:25] LABS: ALLENS TEST POSITIVE; ART PUNCT SITE LEFT RADIAL; LPM/O2% 15; PT. ON O2? YES
[2017-06-22 14:26] LABS: TYPE OF O2 NRB MASC
[2017-06-22 14:27] LABS: ARTERIAL BLOOD GAS pH 7.19 (7.35-7.45)
--- NOTE | 2017-06-22 14:45 | PN ---
Progress Note, Physician History of Present Illness: events noted lethargic non responsive - Current Medication List Current Medications: Active Medications Acetaminophen (Tylenol -) 650 mg PO Q4H PRN PRN Reason: FEVER OR PAIN Last Admin: 06/20/17 21:38 Dose: 650 mg Albuterol/Ipratropium (Duoneb -) 1 amp NEB Q4HPO [facility] Last Admin: 06/22/17 14:00 Dose: 1 amp Amlodipine Besylate (Norvasc -) 2.5 mg PO DAILY [facility] Last Admin: 06/22/17 10:11 Dose: Not Given Ascorbic Acid (Vitamin C -) 500 mg PO BID [facility] Last Admin: 06/22/17 09:17 Dose: Not Given Emollient Ointment (Lanolin Topical Ointment -) 1 applic TP BID [facility] Last Admin: 06/22/17 10:11 Dose: 1 applic Escitalopram Oxalate (Lexapro -) 20 mg PO DAILY [facility] Last Admin: 06/22/17 10:11 Dose: Not Given Ferrous Sulfate (Feosol -) 325 mg PO BID [facility] Last Admin: 06/22/17 10:11 Dose: Not Given Piperacillin/Tazobactam/Dextrose (Zosyn 2.25gm Ivpb (Premix)) 2.25 gm in 50 mls @ 100 mls/hr IVPB Q8H-IV [facility] PRN Reason: Protocol Last Admin: 06/22/17 10:10 Dose: 100 mls/hr Clindamycin Phosphate (Cleocin 300 Mg Premix Ivpb) 300 mg in 50 mls @ 104 mls/ hr IVPB Q6H-IV [facility] Last Admin: 06/22/17 09:08 Dose: 104 mls/hr Dextrose (D5w -) 1,000 mls @ 83 mls/hr IV ASDIR [facility] Multivitamins/Minerals/Vitamin C (Tab-A-Vit -) 1 tab PO DAILY [facility] Last Admin: 06/22/17 10:12 Dose: Not Given Nystatin (Nystop Powder -) 1 applic TP BID [facility] Last Admin: 06/22/17 10:12 Dose: 1 applic [id number]-7-[id number] Ethyl Esters (Lovaza -) 1 gm PO DAILY [facility] Last Admin: 06/22/17 10:11 Dose: Not Given Ranitidine HCl (Zantac -) 150 mg PO BID [facility] Last Admin: 06/22/17 09:17 Dose: Not Given Tamsulosin HCl (Flomax -) 0.4 mg PO DAILY [facility] Last Admin: 06/22/17 10:11 Dose: Not Given Triamcinolone Acetonide (Aristocort 0.1% Lotion -) 1 applic TP BID [facility] Last Admin: 06/22/17 10:11 Dose: 1 applic - Objective Vital Signs: Vital Signs Temperature 98.9 F 06/22/17 05:00 Pulse Rate 98 H 06/22/17 10:00 Respiratory Rate 22 06/22/17 10:00 Blood Pressure 111/65 06/22/17 10:00 O2 Sat by Pulse Oximetry (%) 96 06/22/17 10:00 Constitutional: Yes: Other Cardiovascular: Yes: S1, S2 Respiratory: Yes: Poor Air Entry, Rhonchi, Other (non rebreather) Gastrointestinal: Yes: Normal Bowel Sounds, Soft Musculoskeletal: Yes: Other Extremities: Yes: WNL Neurological: Yes: Lethargy Labs: CBC, BMP 06/22/17 06:10 06/22/17 06:10 INR, PTT INR 1.01 (0.82-1.09) 06/14/17 11:00 Assessment/Plan Problem List - Problems (1) Sepsis Code(s): A41.9 - SEPSIS, UNSPECIFIED ORGANISM Qualifiers: Sepsis type: sepsis due to unspecified organism Qualified Code(s): A41.9 - Sepsis, unspecified organism; A41.9 - Sepsis, unspecified organism; A41.9 - Sepsis, unspecified organism (2) Metabolic encephalopathy Code(s): G93.41 - METABOLIC ENCEPHALOPATHY (3) Bradycardia Code(s): R00.1 - BRADYCARDIA, UNSPECIFIED (4) UTI (urinary tract infection) Code(s): N39.0 - URINARY TRACT INFECTION, SITE NOT SPECIFIED Qualifiers: Urinary tract infection type: site unspecified Hematuria presence: without hematuria Qualified Code(s): N39.0 - Urinary tract infection, site not specified; N39.0 - Urinary tract infection, site not specified; R31.9 - Hematuria, unspecified; R31.9 - Hematuria, unspecified (5) Acute on chronic renal failure Code(s): N17.9 - ACUTE KIDNEY FAILURE, UNSPECIFIED N18.9 - CHRONIC KIDNEY DISEASE, UNSPECIFIED (6) Hyperkalemia Code(s): E87.5 - HYPERKALEMIA (7) Anemia Code(s): D64.9 - ANEMIA, UNSPECIFIED Qualifiers: 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 Code(s): D50.0 - Iron deficiency anemia secondary to blood loss (chronic); D50.0 - Iron deficiency anemia secondary to blood loss (chronic) (8) CAD (coronary artery disease) Code(s): I25.10 - ATHSCL HEART DISEASE OF [place] CORONARY ARTERY W/O ANG PCTRS (9) CHF (congestive heart failure) Code(s): I50.9 - HEART FAILURE, UNSPECIFIED Qualifiers: Congestive heart failure type: diastolic Congestive heart failure chronicity: chronic Qualified Code(s): I50.32 - Chronic diastolic ( congestive) heart failure; I50.32 - Chronic diastolic (congestive) heart failure ; I50.32 - Chronic diastolic (congestive) heart failure; I50.32 - Chronic diastolic (congestive) heart failure (10) Dementia Code(s): F03.90 - UNSPECIFIED DEMENTIA WITHOUT BEHAVIORAL DISTURBANCE (11) HTN (hypertension) Code(s): I10 - ESSENTIAL (PRIMARY) HYPERTENSION patient received vanco and zosyn plan continue abx continue resp support prognosis poor rest as per primary team
[2017-06-22 15:11] VITALS: TEMP 98.4
[2017-06-22] MEDS ORDERED: PT OWN MED DRAWER 7, Y5N ONE (21:39)
[2017-06-22 23:21] VITALS: BP 110/56; PULSE 80
--- NOTE | 2017-06-23 01:35 | HOSP ---
Subjective - Review of Symptoms Events since last encounter: This is a Note. I was called to see pt for unresponsiveness. On exam the pt did not respond to verbal or physical stimuli, and no spontaneous movement was observed. Heart and breath sounds were absent for more than 1 minute. Peripheral pulses absent. Pupils were fixed and dilated, and the corneal reflex was absent. Pt pronounced at 1:20am. FLORAL MANAGER Norm, covering for Dr. Diaz, was notified. Nurse left message for next of kin, pt's niece. Physical Examination Labs: CBC, BMP 06/22/17 06:10 06/22/17 06:10 Visit type - Emergency Visit Emergency Visit: Yes ED Registration Date: 06/14/17 Care time: The patient presented to the Emergency Department on the above date and was hospitalized for further evaluation of their emergent condition. - New Patient This patient is new to me today: Yes Date on this admission: 06/23/17 - Critical Care Critical Care patient: No
[2017-06-23] MEDS: ALBUTEROL SO4 2.5/IPRATROPIUM 0.5 INH SOL 3 ML VIAL.NEB. NEB SCH (02:04)
[2017-06-23] MEDS: PIPERACILLIN/TAZOB 2.25 GM 2.25 GM/50 ML BAG IVPB SCH (02:06)
[2017-06-23] MEDS: CLINDAMYCIN 300 MG PREMIX IVPB 300 MG/50 ML BAG IVPB SCH (02:06)
[2017-06-23] MEDS ORDERED: PT OWN MED DRAWER 7, Y5N ONE (02:39)
== END 2017-06-23 02:20 | disposition expired | DRG 871 ==
LOC: JER 09:28 → JERBED 13:09 → J4W 15:25 → J6S 06-19 12:43
PROVIDERS: ADMIT Internal Medicine; ATTEND Nurse Practitioner Acute Care
DX: A41.9 Sepsis, unspecified organism (principal); G92 Toxic encephalopathy; J96.01 Acute respiratory failure with hypoxia; I50.33 Acute on chronic diastolic (congestive) heart failure; J96.02 Acute respiratory failure with hypercapnia; N39.0 Urinary tract infection, site not specified; I13.0 Hypertensive heart and chronic kidney disease with heart failure and stage 1 through stage 4 chronic kidney disease, or unspecified chronic kidney disease; E87.0 Hyperosmolality and hypernatremia; N18.4 Chronic kidney disease, stage 4 (severe); D64.9 Anemia, unspecified; N40.0 Benign prostatic hyperplasia without lower urinary tract symptoms; E78.5 Hyperlipidemia, unspecified; Z66 Do not resuscitate; R00.1 Bradycardia, unspecified; E87.5 Hyperkalemia; I25.10 Atherosclerotic heart disease of native coronary artery without angina pectoris; I48.91 Unspecified atrial fibrillation; F20.9 Schizophrenia, unspecified; F32.9 Major depressive disorder, single episode, unspecified; Z87.891 Personal history of nicotine dependence; E88.09 Other disorders of plasma-protein metabolism, not elsewhere classified; G30.9 Alzheimer's disease, unspecified; F02.80 Dementia in other diseases classified elsewhere, unspecified severity, without behavioral disturbance, psychotic disturbance, mood disturbance, and anxiety; E83.39 Other disorders of phosphorus metabolism; I35.0 Nonrheumatic aortic (valve) stenosis; D50.9 Iron deficiency anemia, unspecified; D63.8 Anemia in other chronic diseases classified elsewhere; E87.70 Fluid overload, unspecified
CPT/HCPCS: 36415; 36600; 71010-TC; 76775-TC; 80048; 80053; 81003; 81015; 82375; 82550; 82570; 82803; 83050; 83605; 83735; 83880; 84100; 84156; 84300; 84439; 84443; 84484; 84540; 85025; 85610; 85730; 86850; 86900; 86901; 87040; 87086; 87324; 87449; 93005; 93010; 94640; 99285-25; J1644